=== PATIENT | male | born 1990 | race Caucasian/White ===

== ENCOUNTER 2016-09-03 16:01 | Emergency (ER) | payer OTHER ==
[2016-09-03 16:20] VITALS: TEMP 98.5
[2016-09-03 16:29] LABS: Glucose,Whole Blood 386 mg/dL (75-99)
[2016-09-03] MEDS ORDERED: SODIUM CHLORIDE 0.9% 2,000 ML IV ONE (16:29)
[2016-09-03] MEDS ORDERED: ONDANSETRON 4 MG/2 ML VIAL IVP STA (16:32)
--- NOTE | 2016-09-03 16:33 | ED ---
General Adult HPI - General Chief complaint: Recheck/Abnormal Lab/Rx Stated complaint: Diabetic/Vomitting Time Seen by Provider: 09/03/16 16:24 Source: patient, RN notes reviewed Mode of arrival: ambulatory Limitations: no limitations - History of Present Illness Initial comments: 26-year-old male presents emergency Department chief complaint of cold like symptoms, and nausea vomiting only blood sugar. Patient states that she has some sinus congestion cold like symptoms for lasted 4 days states today he developed nausea vomiting. Patient states his blood sugars have been up and down and have been over 500. Patient is concerned about possible DKA. Patient states he's been admitted to the hospital multiple times in the past. Patient states he is on injections he does not use an insulin pump. Patient states he does have some continuation nausea but denies any diarrhea or constipation. Denies any sick contacts. Patient has NO KNOWN DRUG ALLERGIES. 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 - Related Data Home Medications Medication Instructions Recorded Confirmed Insulin Aspart [NovoLOG] See Protocol SQ TID-W/MEALS 10/30/15 09/03/16 Previous Rx's Medication Instructions Recorded Insulin Glargine [Lantus] 24 units SQ HS #1 vial 11/01/15 Ondansetron Odt [Zofran Odt] 4 mg PO Q8HR PRN #10 tab 09/03/16 Allergies Allergy/AdvReac Type Severity Reaction Status Date / Time No Known Allergies Allergy Verified 09/03/16 16:36 Review of Systems ROS Statement: Those systems with pertinent positive or pertinent negative responses have been documented in the HPI. ROS Other: All systems not noted in ROS Statement are negative. Past Medical History Past Medical History: Asthma, Chest Pain / Angina, Diabetes Mellitus, GERD/ Reflux Additional Past Medical History / Comment(s): Other HX: IDDM type I History of Any Multi-Drug Resistant Organisms: None Reported Past Surgical History: Cholecystectomy Past Anesthesia/Blood Transfusion Reactions: Postoperative Nausea & Vomiting ( PONV) Additional Past Anesthesia/Blood Transfusion Reaction / Comment(s): Pt has never received blood. Past Psychological History: Anxiety, Depression Additional Psychological History / Comment(s): Pt has had difficulties with anxiety and depression in the past but not at this time. He is independent. He drives. Smoking Status: Current some day smoker Past Alcohol Use History: Occasional Additional Past Alcohol Use History / Comment(s): Pt states he started smoking in 2009 and quit in 2013. Past Drug Use History: Marijuana Additional Drug Use History / Comment(s): OCCASIONAL-maybe once a month. - Past Family History Father Family Medical History: Diabetes Mellitus, Hypertension Additional Family Medical History / Comment(s): type II diabetes. Mother Family Medical History: COPD Brother(s) Family Medical History: Diabetes Mellitus Additional Family Medical History / Comment(s): IDDM type I Sister(s) Family Medical History: No Reported History General Exam Limitations: no limitations General appearance: alert, in no apparent distress Head exam: Present: atraumatic, normocephalic, normal inspection Eye exam: Present: normal appearance, PERRL, EOMI. Absent: scleral icterus, conjunctival injection, periorbital swelling ENT exam: Present: normal exam, normal oropharynx, mucous membranes moist, TM's normal bilaterally, normal external ear exam Neck exam: Present: normal inspection, full ROM. Absent: tenderness, meningismus, lymphadenopathy Respiratory exam: Present: normal lung sounds bilaterally. Absent: respiratory distress, wheezes, rales, rhonchi, stridor Cardiovascular Exam: Present: normal rhythm, tachycardia, normal heart sounds. Absent: systolic murmur, diastolic murmur, rubs, gallop, clicks GI/Abdominal exam: Present: soft, normal bowel sounds. Absent: distended, tenderness, guarding, rebound, rigid Back exam: Absent: CVA tenderness (R), CVA tenderness (L) Neurological exam: Present: alert, oriented X3, CN II-XII intact Skin exam: Present: warm, dry, intact, normal color. Absent: rash Course Vital Signs 09/03/16 09/03/16 16:17 18:11 Temperature 98.5 F Pulse Rate 110 H 111 H Respiratory 20 18 Rate Blood Pressure 142/86 105/52 O2 Sat by Pulse 98 97 Oximetry Medical Decision Making - Medical Decision Making 26-year-old male presented for hyperglycemia nausea vomiting. Patient states that he feels 100% better at this time. Patient was explained that he still has some positive blood sugar 287. Patient is requesting discharge at this time. Explained that he possibly needs more fluids, insulin that he states that he is able to go home. Patient states she does have follow-up with primary care physician he does not seem fence manufacture supervisor. Return parameters discussed. Patient's bicarb was within normal limits here in emergency department. - Lab Data Result diagrams: 09/03/16 16:51 09/03/16 16:51 Lab Results 09/03/16 09/03/16 09/03/16 Range/Units 16:26 16:51 16:51 WBC 8.6 (3.8-10.6) k/uL RBC 5.47 (4.30-5.90) m/uL Hgb 16.5 (13.0-17.5) gm/dL Hct 47.9 (39.0-53.0) % MCV 87.6 (80.0-100.0) fL MCH 30.2 (25.0-35.0) pg MCHC 34.5 (31.0-37.0) g/dL RDW 12.6 (11.5-15.5) % Plt Count 213 (150-450) k/uL Neutrophils % 89 % Lymphocytes % 4 % Monocytes % 5 % Eosinophils % 1 % Basophils % 1 % Neutrophils # 7.7 (1.3-7.7) k/uL Lymphocytes # 0.3 L (1.0-4.8) k/uL Monocytes # 0.4 (0-1.0) k/uL Eosinophils # 0.1 (0-0.7) k/uL Basophils # 0.1 (0-0.2) k/uL Sodium 133 L (137-145) mmol/L Potassium 5.1 (3.5-5.1) mmol/L Chloride 92 L (98-107) mmol/L Carbon Dioxide 23 (22-30) mmol/L Anion Gap 18 mmol/L BUN 13 (9-20) mg/dL Creatinine 0.78 (0.66-1.25) mg/dL Est GFR (MDRD) Af Amer >60 (>60 ml/min/1.73 sqM) Est GFR (MDRD) Non-Af >60 (>60 ml/min/1.73 sqM) Glucose 414 H (74-99) mg/dL POC Glucose (mg/dL) 386 H (75-99) mg/dL POC Glu Customs Brokerage Manager ID Gladys Langston Calcium 9.7 (8.4-10.2) mg/dL Total Bilirubin 1.2 (0.2-1.3) mg/dL AST 19 (17-59) U/L ALT 35 (21-72) U/L Alkaline Phosphatase 152 H (38-126) U/L Total Protein 7.3 (6.3-8.2) g/dL Albumin 4.7 (3.5-5.0) g/dL Amylase <30 L (30-110) U/L Lipase 19 L (23-300) U/L Urine Color Urine Appearance (Clear) Urine pH (5.0-8.0) Ur Specific [place] (1.001-1.035) Urine Protein (Negative) Urine Glucose (UA) (Negative) Urine Ketones (Negative) Urine Blood (Negative) Urine Nitrate (Negative) Urine Bilirubin (Negative) Urine Urobilinogen (<2.0) mg/dL Ur Leukocyte Esterase (Negative) Acetone, Qual Positive (Negative) 09/03/16 09/03/16 09/03/16 Range/Units 17:53 18:03 19:14 WBC (3.8-10.6) k/uL RBC (4.30-5.90) m/uL Hgb (13.0-17.5) gm/dL Hct (39.0-53.0) % MCV (80.0-100.0) fL MCH (25.0-35.0) pg MCHC (31.0-37.0) g/dL RDW (11.5-15.5) % Plt Count (150-450) k/uL Neutrophils % % Lymphocytes % % Monocytes % % Eosinophils % % Basophils % % Neutrophils # (1.3-7.7) k/uL Lymphocytes # (1.0-4.8) k/uL Monocytes # (0-1.0) k/uL Eosinophils # (0-0.7) k/uL Basophils # (0-0.2) k/uL Sodium (137-145) mmol/L Potassium (3.5-5.1) mmol/L Chloride (98-107) mmol/L Carbon Dioxide (22-30) mmol/L Anion Gap mmol/L BUN (9-20) mg/dL Creatinine (0.66-1.25) mg/dL Est GFR (MDRD) Af Amer (>60 ml/min/1.73 sqM) Est GFR (MDRD) Non-Af (>60 ml/min/1.73 sqM) Glucose (74-99) mg/dL POC Glucose (mg/dL) 404 H 343 H (75-99) mg/dL POC Glu Customs Brokerage Manager ID Thuy Taylor Stacy Calcium (8.4-10.2) mg/dL Total Bilirubin (0.2-1.3) mg/dL AST (17-59) U/L ALT (21-72) U/L Alkaline Phosphatase (38-126) U/L Total Protein (6.3-8.2) g/dL Albumin (3.5-5.0) g/dL Amylase (30-110) U/L Lipase (23-300) U/L Urine Color Light Yellow Urine Appearance Clear (Clear) Urine pH 5.5 (5.0-8.0) Ur Specific [place] 1.029 (1.001-1.035) Urine Protein Negative (Negative) Urine Glucose (UA) 4+ H (Negative) Urine Ketones 4+ H (Negative) Urine Blood Negative (Negative) Urine Nitrate Negative (Negative) Urine Bilirubin Negative (Negative) Urine Urobilinogen <2.0 (<2.0) mg/dL Ur Leukocyte Esterase Negative (Negative) Acetone, Qual (Negative) 09/03/16 09/03/16 Range/Units 19:45 20:38 WBC (3.8-10.6) k/uL RBC (4.30-5.90) m/uL Hgb (13.0-17.5) gm/dL Hct (39.0-53.0) % MCV (80.0-100.0) fL MCH (25.0-35.0) pg MCHC (31.0-37.0) g/dL RDW (11.5-15.5) % Plt Count (150-450) k/uL Neutrophils % % Lymphocytes % % Monocytes % % Eosinophils % % Basophils % % Neutrophils # (1.3-7.7) k/uL Lymphocytes # (1.0-4.8) k/uL Monocytes # (0-1.0) k/uL Eosinophils # (0-0.7) k/uL Basophils # (0-0.2) k/uL Sodium (137-145) mmol/L Potassium (3.5-5.1) mmol/L Chloride (98-107) mmol/L Carbon Dioxide (22-30) mmol/L Anion Gap mmol/L BUN (9-20) mg/dL Creatinine (0.66-1.25) mg/dL Est GFR (MDRD) Af Amer (>60 ml/min/1.73 sqM) Est GFR (MDRD) Non-Af (>60 ml/min/1.73 sqM) Glucose (74-99) mg/dL POC Glucose (mg/dL) 287 H (75-99) mg/dL POC Glu Customs Brokerage Manager ID Kinza Caballero Calcium (8.4-10.2) mg/dL Total Bilirubin (0.2-1.3) mg/dL AST (17-59) U/L ALT (21-72) U/L Alkaline Phosphatase (38-126) U/L Total Protein (6.3-8.2) g/dL Albumin (3.5-5.0) g/dL Amylase (30-110) U/L Lipase (23-300) U/L Urine Color Urine Appearance (Clear) Urine pH (5.0-8.0) Ur Specific [place] (1.001-1.035) Urine Protein (Negative) Urine Glucose (UA) (Negative) Urine Ketones (Negative) Urine Blood (Negative) Urine Nitrate (Negative) Urine Bilirubin (Negative) Urine Urobilinogen (<2.0) mg/dL Ur Leukocyte Esterase (Negative) Acetone, Qual Positive (Negative) Disposition Clinical Impression: Hyperglycemia due to type 1 diabetes mellitus, Nausea & vomiting Disposition: HOME SELF-CARE Condition: Stable Instructions: Diabetic Hyperglycemia (ED) Additional Instructions: Please return to the Emergency Department if symptoms worsen or any other concerns. Prescriptions: Ondansetron Odt [Zofran Odt] 4 mg PO Q8HR PRN #10 tab PRN Reason: Nausea Time of Disposition: 21:04
[2016-09-03 17:20] LABS: Basophils # (A) 0.1 k/uL (0-0.2); Basophils % (A) 1 %; CH 31.3; CHCM 35.9; Eosinophils # (A) 0.1 k/uL (0-0.7); Eosinophils % (A) 1 %; HCT 47.9 % (39.0-53.0); HDW 3.21; HGB 16.5 gm/dL (13.0-17.5); Luc # (Auto) 0.09; Luc % (Auto) 1; Lymphocytes # (A) 0.3 k/uL (1.0-4.8); Lymphocytes % (A) 4 %; MCH 30.2 pg (25.0-35.0); MCHC 34.5 g/dL (31.0-37.0); MCV 87.6 fL (80.0-100.0); Mean Platelet Volume 6.9; Monocytes # (A) 0.4 k/uL (0-1.0); Monocytes % (A) 5 %; Neutrophils # (A) 7.7 k/uL (1.3-7.7); Neutrophils % (A) 89 %; RBC 5.47 m/uL (4.30-5.90); RDW 12.6 % (11.5-15.5); WBC 8.6 k/uL (3.8-10.6); WBC (Perox) 8.76
[2016-09-03 17:36] LABS: ALT 35 U/L (21-72); AST 19 U/L (17-59); Alkaline Phosphatase 152 U/L (38-126); Amylase <30 U/L (30-110); Anion Gap 18 mmol/L; Blood Urea Nitrogen 13 mg/dL (9-20); Calcium 9.7 mg/dL (8.4-10.2); Carbon Dioxide 23 mmol/L (22-30); Chloride 92 mmol/L (98-107); Glucose 414 mg/dL (74-99); Non-African American GFR(MDRD) >60 (>60 ml/min/1.73 sqM); Potassium 5.1 mmol/L (3.5-5.1); Sodium 133 mmol/L (137-145); Total Bilirubin 1.2 mg/dL (0.2-1.3); Total Protein 7.3 g/dL (6.3-8.2)
--- NOTE | 2016-09-03 17:41 | XR ---
EXAMINATION TYPE: XR chest 2V DATE OF EXAM: 09/03/2016 5:32 PM COMPARISON: 10/30/2015 HISTORY: Vomiting TECHNIQUE: Frontal and lateral views of the chest are obtained. FINDINGS: Heart and mediastinum are normal. Lungs are clear. Diaphragm is normal. Bony thorax is int act. Pulmonary vascularity is normal. IMPRESSION: Normal chest
[2016-09-03 17:54] LABS: Glucose,Whole Blood 404 mg/dL (75-99)
[2016-09-03] MEDS ORDERED: INSULIN REGULAR 100 UNIT/ML VIAL IV ONE ×2 (18:12→19:17)
[2016-09-03] MEDS ORDERED: KETOROLAC 30 MG/ML 1 ML VIAL IVP STA (18:18)
[2016-09-03 18:19] LABS: Appearance,Urine Clear (Clear); Bilirubin,Urine Negative (Negative); Glucose,Urine (UA) 4+ (Negative); Leukocyte Esterase,Urine Negative (Negative); Nitrite,Urine Negative (Negative); PH, Urine 5.5 (5.0-8.0); Protein,Urine Negative (Negative); Specific Gravity,Urine 1.029 (1.001-1.035); UA Billing (MACRO vs. MICRO) CHEM; Urobilinogen,Urine <2.0 mg/dL (<2.0)
[2016-09-03 18:30] LABS: Ketones,Urine 4+ (Negative)
[2016-09-03 19:16] LABS: Glucose,Whole Blood 343 mg/dL (75-99)
[2016-09-03] MEDS ORDERED: SODIUM CHLORIDE 0.9% 1,000 ML IV STA (19:17)
[2016-09-03 20:39] LABS: Glucose,Whole Blood 287 mg/dL (75-99)
[2016-09-03 21:18] VITALS: BP 133/73; PULSE 110; RESP 16
== END 2016-09-03 21:18 | disposition home or self-care (01) ==
LOC: EC 16:01
DX: E10.65 Type 1 diabetes mellitus with hyperglycemia (principal); Z79.4 Long term (current) use of insulin; R11.2 Nausea with vomiting, unspecified; F17.200 Nicotine dependence, unspecified, uncomplicated
CPT/HCPCS: 36415; 80053; 82150; 82009; 83690; 85025; 81003; 71020; 99285; 96374; 96375 ×3; 96361 ×3; J2405; J1885

== ENCOUNTER 2016-09-03 22:34 | Inpatient (IN) | payer OTHER ==
[2016-09-03] MEDS ORDERED: SODIUM CHLORIDE 0.9% 2,000 ML IV ONE (22:54)
[2016-09-03] MEDS ORDERED: METOCLOPRAMIDE 5 MG/ML 2 ML VIAL IVP STA (22:59)
[2016-09-03] MEDS ORDERED: ACETAMINOPHEN TAB 325 MG TAB PO STA (22:59)
[2016-09-03] MEDS ORDERED: MAG HYDROX/AL HYDROX/SIMETH 30 ML, HYOSCYAMINE ELIXIR 10 ML, CIMETIDINE HCL 300 MG, LID... PO STA ×4 (23:19)
[2016-09-03 23:22] LABS: Basophils # (A) 0.1 k/uL (0-0.2); Basophils % (A) 1 %; CH 31.2; CHCM 34.9; Eosinophils % (A) 0 %; HCT 44.3 % (39.0-53.0); HDW 3.19; HGB 15.2 gm/dL (13.0-17.5); Luc # (Auto) 0.14; Luc % (Auto) 1; Lymphocytes # (A) 0.7 k/uL (1.0-4.8); Lymphocytes % (A) 7 %; MCH 30.8 pg (25.0-35.0); MCHC 34.3 g/dL (31.0-37.0); MCV 89.9 fL (80.0-100.0); Mean Platelet Volume 7.9; Monocytes # (A) 0.6 k/uL (0-1.0); Monocytes % (A) 6 %; Neutrophils % (A) 84 %; RBC 4.92 m/uL (4.30-5.90); RDW 12.6 % (11.5-15.5); WBC 9.6 k/uL (3.8-10.6); WBC (Perox) 9.31
[2016-09-03 23:33] LABS: Anion Gap 21 mmol/L; Blood Urea Nitrogen 15 mg/dL (9-20); Calcium 9.3 mg/dL (8.4-10.2); Carbon Dioxide 16 mmol/L (22-30); Chloride 97 mmol/L (98-107); Non-African American GFR(MDRD) >60 (>60 ml/min/1.73 sqM); Sodium 134 mmol/L (137-145)
--- NOTE | 2016-09-03 23:36 | XR ---
EXAMINATION TYPE: XR chest 2V DATE OF EXAM: 09/03/2016 11:30 PM COMPARISON: 09/03/2016 today HISTORY: Fever TECHNIQUE: Frontal and lateral views of the chest are obtained. FINDINGS: Heart and mediastinum are normal. Lungs are clear. Diaphragm is normal. There are chest le ads. Bony thorax appears normal. IMPRESSION: Normal chest. No change compared to exam earlier today.
[2016-09-03 23:37] LABS: Glucose 495 mg/dL (74-99)
[2016-09-04] MEDS ORDERED: INSULIN REGULAR 100 UNIT/ML VIAL IV STA (00:45)
[2016-09-04 00:46] LABS: Amylase 38 U/L (30-110)
[2016-09-04] MEDS ORDERED: HYDROcodone/APAP 5-325MG 1 EACH TAB PO STA (00:48)
[2016-09-04] MEDS ORDERED: INSULIN REGULAR 100 UNIT in SODIUM CHLORIDE 0.9% 100 ML IV SCH (01:00)
[2016-09-04] MEDS ORDERED: METOCLOPRAMIDE 5 MG/ML 2 ML VIAL IVP PRN (01:48)
[2016-09-04] MEDS: SODIUM CHLORIDE 0.9% 1,000 ML IV SCH ×5 (02:03→12:54)
[2016-09-04 03:31] LABS: Glucose,Whole Blood 402 mg/dL (75-99)
--- NOTE | 2016-09-04 03:39 | ED ---
Chest Pain HPI - General Chief Complaint: Chest Pain Stated Complaint: Chest Pain, XIAO Time Seen by Provider: 09/03/16 22:53 Source: patient Mode of arrival: wheelchair Limitations: no limitations - History of Present Illness Initial Comments: This patient is 26-year-old diabetic patient who was seen earlier in the emergency department for concern that he may have had DKA. He was having nausea and vomiting. The patient states that he had IV fluid, insulin, and was feeling much better and went home. After the patient was home he had an episode of vomiting and then had severe substernal chest pain. Patient has been having episodes of this intermittently since he had his gallbladder removed. They have raised concerns with his physician about esophagitis but he has never had endoscopy. MD Complaint: chest pain -: minutes(s) Onset: other (Associated with nausea and vomiting) Pain Location: substernal Severity: severe Quality: sharp, other (Burning) Consistency: constant Improves With: nothing Worsens With: nothing Anginal Symptoms: nausea, vomiting Treatments Prior to Arrival: none - Related Data Home Medications Medication Instructions Recorded Confirmed Insulin Aspart [NovoLOG] See Protocol SQ TID-W/MEALS 10/30/15 09/03/16 Previous Rx's Medication Instructions Recorded Insulin Glargine [Lantus] 24 units SQ HS #1 vial 11/01/15 Ondansetron Odt [Zofran Odt] 4 mg PO Q8HR PRN #10 tab 09/03/16 Allergies Allergy/AdvReac Type Severity Reaction Status Date / Time No Known Allergies Allergy Verified 09/03/16 22:49 Review of Systems ROS Statement: Those systems with pertinent positive or pertinent negative responses have been documented in the HPI. ROS Other: All systems not noted in ROS Statement are negative. Constitutional: Denies: fever, chills Respiratory: Denies: cough, dyspnea Cardiovascular: Reports: chest pain, palpitations. Denies: syncope Gastrointestinal: Reports: abdominal pain, nausea, vomiting. Denies: diarrhea, hematemesis, melena, hematochezia Genitourinary: Denies: dysuria, hematuria Musculoskeletal: Denies: back pain Skin: Denies: rash EKG Findings - EKG Results: EKG: interpreted by ERMD, sinus rhythm, normal ST/T EKG shows: tachycardia (Rate approximately 119 bpm) - Blocks, [place], Hypertrophy, ST Abn: AV and intraventricular conduction: right bundle branch block (fixed/ intermittent, complete/incomplete) (Incomplete) QRS axis and voltage: right axis deviation (+90 to +180) Past Medical History Past Medical History: Asthma, Chest Pain / Angina, Diabetes Mellitus, GERD/ Reflux Additional Past Medical History / Comment(s): Other HX: IDDM type I History of Any Multi-Drug Resistant Organisms: None Reported Past Surgical History: Cholecystectomy Past Anesthesia/Blood Transfusion Reactions: Postoperative Nausea & Vomiting ( PONV) Additional Past Anesthesia/Blood Transfusion Reaction / Comment(s): Pt has never received blood. Past Psychological History: Anxiety, Depression Additional Psychological History / Comment(s): Pt has had difficulties with anxiety and depression in the past but not at this time. He is independent. He drives. Smoking Status: Current some day smoker Past Alcohol Use History: Occasional Additional Past Alcohol Use History / Comment(s): Pt states he started smoking in 2009 and quit in 2013. Past Drug Use History: Marijuana Additional Drug Use History / Comment(s): OCCASIONAL-maybe once a month. - Past Family History Father Family Medical History: Diabetes Mellitus, Hypertension Additional Family Medical History / Comment(s): type II diabetes. Mother Family Medical History: COPD Brother(s) Family Medical History: Diabetes Mellitus Additional Family Medical History / Comment(s): IDDM type I Sister(s) Family Medical History: No Reported History General Exam Limitations: no limitations General appearance: alert, in no apparent distress Head exam: Present: atraumatic, normocephalic Eye exam: Present: normal appearance. Absent: scleral icterus, conjunctival injection ENT exam: Present: mucous membranes dry Neck exam: Present: normal inspection Respiratory exam: Present: normal lung sounds bilaterally. Absent: respiratory distress, wheezes, rales, rhonchi, stridor, chest wall tenderness Cardiovascular Exam: Present: normal rhythm, tachycardia, normal heart sounds. Absent: systolic murmur, diastolic murmur, rubs, gallop GI/Abdominal exam: Present: soft. Absent: distended, tenderness, guarding, rebound, rigid, mass, bruit Extremities exam: Present: normal inspection, normal capillary refill. Absent: pedal edema, calf tenderness Back exam: Absent: CVA tenderness (R), CVA tenderness (L) Neurological exam: Present: alert Skin exam: Present: warm, dry, intact, normal color. Absent: rash Course Vital Signs 09/03/16 09/03/16 09/03/16 22:37 23:12 23:49 Temperature 98.0 F Pulse Rate 124 H Pulse Rate [ 123 H Service Center Specialist ] Respiratory 28 H 20 Rate Blood Pressure 171/99 Blood Pressure [Left Arm] O2 Sat by Pulse 100 Oximetry 09/04/16 09/04/16 09/04/16 00:33 02:11 03:13 Temperature Pulse Rate 127 H 118 H 117 H Pulse Rate [ Service [employer] Specialist ] Respiratory 20 18 18 Rate Blood Pressure 124/58 86/39 103/53 Blood Pressure [Left Arm] O2 Sat by Pulse 100 97 96 Oximetry 09/04/16 09/04/16 09/04/16 03:59 04:18 04:49 Temperature 99 F 99 F Pulse Rate 116 H 117 H Pulse Rate [ 108 H [facility] Center Specialist ] Respiratory 18 22 20 Rate Blood Pressure 112/55 107/51 Blood Pressure 107/51 [Left Arm] O2 Sat by Pulse 97 99 99 Oximetry Chest Pain MDM - MDM This patient is 26-year-old man who returns emergency department and is in mild DKA. The chest pain is consistent with esophagitis type pain, it did come on after vomiting. Similar to previous episodes of same. The symptoms did improve following the GI cocktail. Patient admitted for further fluids and insulin. Case discussed with both the admitting physician and with Dr. Johansen. Critical Care Time Critical Care Time: Yes (35 minutes) Disposition Clinical Impression: Chest pain, Diabetic ketoacidosis, type I Disposition: ADMITTED IP TO THIS HOSP Condition: Fair
[2016-09-04 04:19] LABS: Anion Gap 18 mmol/L; Blood Urea Nitrogen 16 mg/dL (9-20); Carbon Dioxide 14 mmol/L (22-30); Chloride 104 mmol/L (98-107); Glucose 353 mg/dL (74-99); Non-African American GFR(MDRD) >60 (>60 ml/min/1.73 sqM); Phosphorous 2.5 mg/dL (2.5-4.5); Potassium 4.5 mmol/L (3.5-5.1); Sodium 136 mmol/L (137-145)
[2016-09-04 04:40] LABS: Glucose,Whole Blood 331 mg/dL (75-99)
[2016-09-04 05:18] VITALS: BMI 24.6
[2016-09-04 05:55] LABS: Glucose,Whole Blood 244 mg/dL (75-99)
[2016-09-04 06:29] LABS: Glucose,Whole Blood 212 mg/dL (75-99)
[2016-09-04] MEDS ORDERED: DEXTROSE 5%-0.45% NACL 1,000 ML with POTASSIUM CHLORIDE 20 MEQ IV SCH ×2 (07:15)
[2016-09-04] MEDS ORDERED: D5-0.45% NACL WITH KCL 20MEQ/L 1,000 ML IV SCH (07:30)
[2016-09-04 07:54] LABS: Glucose,Whole Blood 114 mg/dL (75-99)
[2016-09-04 09:01] LABS: Anion Gap 11 mmol/L; Blood Urea Nitrogen 12 mg/dL (9-20); Carbon Dioxide 22 mmol/L (22-30); Chloride 106 mmol/L (98-107); Glucose 115 mg/dL (74-99); Non-African American GFR(MDRD) >60 (>60 ml/min/1.73 sqM); Phosphorous 2.8 mg/dL (2.5-4.5); Sodium 139 mmol/L (137-145)
[2016-09-04 09:15] LABS: Potassium 4.1 mmol/L (3.5-5.1)
[2016-09-04 09:19] LABS: Glucose,Whole Blood 151 mg/dL (75-99)
[2016-09-04 10:17] LABS: Glucose,Whole Blood 160 mg/dL (75-99)
--- NOTE | 2016-09-04 10:36 | P.CNPUL ---
History of Present Illness Consult date: 09/04/16 Reason for consult: chest pain Chief complaint: Nausea, vomiting, chest pain History of present illness: This is a 26-year-old male who presented to emergency Department complaining of nausea, vomiting, and chest pain. The patient states he was feeling unwell for several days. He has known diabetes mellitus type 1 and thought he was going into DKA. He was originally seen in the ER and given IV fluids and insulin he felt better and went home. The patient presented back in the ER a few hours later. He had the same complaints. The patient was found to be hyponatremic, hyperkalemic, anion gap metabolic acidosis. His blood sugars were in the 300- 400 range. The patient is seen and examined in the ICU. He states he is feeling much better. He no longer has chest pain, nausea, vomiting. Review of Systems All systems: negative Past Medical History Past Medical History: Asthma, Diabetes Mellitus, GERD/Reflux Additional Past Medical History / Comment(s): Other HX: IDDM type I History of Any Multi-Drug Resistant Organisms: None Reported Past Surgical History: Cholecystectomy Past Anesthesia/Blood Transfusion Reactions: Postoperative Nausea & Vomiting ( PONV) Additional Past Anesthesia/Blood Transfusion Reaction / Comment(s): Pt has never received blood. Past Psychological History: Anxiety, Depression Additional Psychological History / Comment(s): Pt has had difficulties with anxiety and depression in the past but not at this time. He is independent. He drives. Smoking Status: Current some day smoker Past Alcohol Use History: Occasional Additional Past Alcohol Use History / Comment(s): Pt states he started smoking in 2009 and quit in 2013. Past Drug Use History: Marijuana Additional Drug Use History / Comment(s): OCCASIONAL-maybe once a month. - Past Family History Father Family Medical History: Diabetes Mellitus, Hypertension Additional Family Medical History / Comment(s): type II diabetes. Mother Family Medical History: COPD Brother(s) Family Medical History: Diabetes Mellitus Additional Family Medical History / Comment(s): IDDM type I Sister(s) Family Medical History: No Reported History Medications and Allergies Home Medications Medication Instructions Recorded Confirmed Type Insulin Aspart [NovoLOG] See Protocol SQ TID-W/MEALS 10/30/15 09/03/16 History Allergies Allergy/AdvReac Type Severity Reaction Status Date / Time No Known Allergies Allergy Verified 09/03/16 22:49 Physical Exam Osteopathic Statement: *. No significant issues noted on an osteopathic structural exam other than those noted in the History and Physical/Consult. Vitals: Vital Signs Temp Pulse Pulse Resp BP BP Pulse Ox 09/04/16 08:00 98.6 F 117 H 28 H 100/56 96 09/04/16 05:45 22 09/04/16 04:49 99 F 117 H 20 107/51 99 09/04/16 04:18 99 F 108 H 22 107/51 99 09/04/16 03:59 116 H 18 112/55 97 09/04/16 03:13 117 H 18 103/53 96 09/04/16 02:11 118 H 18 86/39 97 Intake and Output 09/03/16 09/04/16 09/04/16 22:59 06:59 14:59 Intake Total 2919.124 Balance 2919.124 Intake: IV 400 Sodium Chloride 0.9% 1, 400 000 ml @ 200 mls/hr IV . Q5H [facility] Rx#:[id number] Amount of Fluid Infused ( 2500 ml) Intake, IV Titration 19.124 Amount Insulin Regular 100 unit 19.124 In Sodium Chloride 0.9% 100 ml @ 0.1 UNITS/KG/HR 6.87 mls/hr IV .[id number] [facility] Rx#:[id number] Other: Voiding Method Urinal Weight 69.2 kg 69.2 kg Patient Weight 09/05/16 06:59 Weight 69.2 kg Gen.: Patient is alert and oriented 3, no acute distress Cardiovascular: Regular rate and rhythm, S1/S2 Lungs: Clear to auscultation bilaterally no wheezes rales or rhonchi Abdomen: Soft nontender nondistended positive bowel sounds Extremities: No edema Results - Laboratory Findings CBC and BMP: 09/03/16 23:15 09/04/16 08:18 Abnormal lab findings: Abnormal Labs 09/04/16 09/04/16 09/04/16 03:30 03:57 04:36 Sodium 136 L Carbon Dioxide 14 L Glucose 353 H POC Glucose (mg/dL) 402 H 331 H 09/04/16 09/04/16 09/04/16 05:34 06:26 07:52 Sodium Carbon Dioxide Glucose POC Glucose (mg/dL) 244 H 212 H 114 H 02/09/04/16 09/04/16 08:18 09:08 10:16 Sodium Carbon Dioxide Glucose 115 H POC Glucose (mg/dL) 151 H 160 H - Diagnostic Findings Chest x-ray: report reviewed, image reviewed Assessment and Plan Plan: Acute DKA Diabetes mellitus Type 1 Anion gap metabolic acidosis Hyponatremia, dehydration Hyperkalemia, resolved Intractable nausea, vomiting Atypical Chest pain, now resolved Possible esophagitis Hx cholecystectomy Hx asthma, not acutely exacerbated, unknown type Active tobacco abuse Continue insulin drip Continue IVF Monitor BS Diabetic diet CXR - NAP Monitor electrolytes Q6 hours Antiemetics Pain control Incentive spirometry and pulmnary hygiene GI and DVT prophylaxis: Hep, Protonix
[2016-09-04 11:01] LABS: Glucose,Whole Blood 139 mg/dL (75-99)
[2016-09-04] MEDS: PANTOPRAZOLE 40 MG/10 ML VIAL IVP SCH (11:56)
[2016-09-04 12:14] LABS: Glucose,Whole Blood 134 mg/dL (75-99)
[2016-09-04 12:54] LABS: Anion Gap 9 mmol/L; Blood Urea Nitrogen 11 mg/dL (9-20); Carbon Dioxide 23 mmol/L (22-30); Chloride 105 mmol/L (98-107); Non-African American GFR(MDRD) >60 (>60 ml/min/1.73 sqM); Sodium 137 mmol/L (137-145)
[2016-09-04 12:59] LABS: Glucose,Whole Blood 103 mg/dL (75-99)
[2016-09-04] MEDS ORDERED: INSULIN NPH 300 UNIT/3 ML VIAL SQ ONE (13:41)
--- NOTE | 2016-09-04 13:56 | P.HPIM ---
History of Present Illness H&P Date: 09/04/16 This is 26-year-old patient of Dr. Miller,. He has an underlying history of juvenile diabetes type 1, asthma, gastroesophageal reflux disease. Patient initially presented to [facility] emergency center on the afternoon of September 03 with complaints of cold-like symptoms, nausea, vomiting , sinus congestion for 4 days. Blood sugars were running over 500 and was concerned about possible DKA. Blood sugar was 414 and acetone was positive. Patient was treated with IV fluids and was feeling much improved and wished to go home versus being admitted. He was provided with a prescription for Zofran and was discharged home. He returned with severe substernal chest pain. He states he also had a fever yesterday. He states since he had his gallbladder removed he does have a vomiting episode every day in the morning. Pain is in the low sternal area and he thinks it's related to his esophagus. His primary care physician has given a medications for without any improvement. He has never seen a gem technician. He was tachycardic at 124, blood sugar 495, acetone positive. He was started on insulin drip with the DKA protocol and admitted to the intensive care unit. Consult with Dr. Kenyon. Troponin was ordered and came back at 0.235. Cardiology consult has been requested. Patient is known to have noncompliance with his diabetic regime. He will need a glucometer for home. Review of Systems All systems: negative Constitutional: Denies chills, Denies fever Eyes: denies blurred vision, denies pain Ears, nose, mouth and throat: Denies headache, Denies sore throat Cardiovascular: Reports chest pain, Denies shortness of breath Respiratory: Denies cough Gastrointestinal: Reports nausea, Reports vomiting, Denies abdominal pain, Denies diarrhea Musculoskeletal: Denies myalgias Integumentary: Denies pruritus, Denies rash Neurological: Denies numbness, Denies weakness Psychiatric: Denies anxiety, Denies depression Endocrine: Denies fatigue, Denies weight change Past Medical History Past Medical History: Asthma, Diabetes Mellitus, GERD/Reflux Additional Past Medical History / Comment(s): Other HX: IDDM type I History of Any Multi-Drug Resistant Organisms: None Reported Past Surgical History: Cholecystectomy Past Anesthesia/Blood Transfusion Reactions: Postoperative Nausea & Vomiting ( PONV) Additional Past Anesthesia/Blood Transfusion Reaction / Comment(s): Pt has never received blood. Past Psychological History: Anxiety, Depression Additional Psychological History / Comment(s): Pt has had difficulties with anxiety and depression in the past but not at this time. He is independent. He drives. Smoking Status: Current some day smoker Past Alcohol Use History: Occasional Additional Past Alcohol Use History / Comment(s): Pt states he started smoking in 2009 and 10 used to smoke. Past Drug Use History: Marijuana Additional Drug Use History / Comment(s): OCCASIONAL-maybe once a month. - Past Family History Father Family Medical History: Diabetes Mellitus, Hypertension Additional Family Medical History / Comment(s): type II diabetes. Mother Family Medical History: COPD Brother(s) Family Medical History: Diabetes Mellitus Additional Family Medical History / Comment(s): IDDM type I Sister(s) Family Medical History: No Reported History Medications and Allergies Home Medications Medication Instructions Recorded Confirmed Type Insulin Aspart [NovoLOG] See Protocol SQ TID-W/MEALS 10/30/15 09/03/16 History Allergies Allergy/AdvReac Type Severity Reaction Status Date / Time No Known Allergies Allergy Verified 09/03/16 22:49 Physical Exam Vitals: Vital Signs Temp Pulse Pulse Resp BP BP Pulse Ox 09/04/16 08:00 98.6 F 117 H 28 H 100/56 96 09/04/16 05:45 22 09/04/16 04:49 99 F 117 H 20 107/51 99 09/04/16 04:18 99 F 108 H 22 107/51 99 09/04/16 03:59 116 H 18 112/55 97 09/04/16 03:13 117 H 18 103/53 96 09/04/16 02:11 118 H 18 86/39 97 Intake and Output 09/03/16 09/04/16 09/04/16 22:59 06:59 14:59 Intake Total 2919.124 Balance 2919.124 Intake: IV 400 Sodium Chloride 0.9% 1, 400 000 ml @ 200 mls/hr IV . Q5H OBED Rx#:[id number] Amount of Fluid Infused ( 2500 ml) Intake, IV Titration 19.124 Amount Insulin Regular 100 unit 19.124 In Sodium Chloride 0.9% 100 ml @ 0.1 UNITS/KG/HR 6.87 mls/hr IV .[id number] OBED Rx#:[id number] Other: Voiding Method Urinal Weight 69.2 kg General appearance: average body habitus, no acute distress - EENT Eyes: Reports anicteric sclerae, Reports EOMI, Reports PERRLA, Reports dentition normal, Reports normal apperance ENT: Reports hearing grossly normal, Reports NA/AT, Reports normal oropharynx Ears: bilateral: normal - Neck Neck: Reports normal ROM, Denies lymphadenopathy, Denies other, Denies rigidity , Denies stridor, Denies thyromegaly - Respiratory Respiratory: bilateral: CTA, negative: diminished, dullness, rales, wheezing, prolonged expiration, prolonged inspiration - Cardiovascular Rhythm: regular Heart sounds: normal: S1, S2 Abnormal Heart Sounds: Denies systolic murmur, Denies diastolic murmur, Denies rub, Denies S3 Gallop, Denies S4 Gallop, Denies click, Denies other - Gastrointestinal General gastrointestinal: Reports normal bowel sounds, Reports soft, Denies absent bowel sounds, Denies decreased bowel sounds, Denies distended, Denies hepatomegaly, Denies hyperactive bowel sounds, Denies organomegaly, Denies rigid , Denies scaphoid, Denies splenomegaly, Denies tenderness, Denies umbilical hernia, Denies ventral hernia - Integumentary Integumentary: Reports normal, Reports normal turgor - Neurologic Neurologic: CNII-XII intact - Musculoskeletal Musculoskeletal: Reports gait normal, Reports strength equal bilaterally - Psychiatric Psychiatric: Reports A&O x's 3, Reports appropriate affect, Reports intact judgment & insight Results CBC & Chem 7: 09/03/16 23:15 09/05/16 11:59 Labs: Abnormal Lab Results - Last 24 Hours (Table) 09/04/16 09/04/16 09/04/16 Range/Units 03:30 03:57 04:36 Sodium 136 L (137-145) mmol/L Carbon Dioxide 14 L (22-30) mmol/L Glucose 353 H (74-99) mg/dL POC Glucose (mg/dL) 402 H 331 H (75-99) mg/dL 09/04/16 09/04/16 09/04/16 Range/Units 05:34 06:26 07:52 Sodium (137-145) mmol/L Carbon Dioxide (22-30) mmol/L Glucose (74-99) mg/dL POC Glucose (mg/dL) 244 H 212 H 114 H (75-99) mg/dL 09/04/16 09/04/16 Range/Units 08:18 09:08 Sodium (137-145) mmol/L Carbon Dioxide (22-30) mmol/L Glucose 115 H (74-99) mg/dL POC Glucose (mg/dL) 151 H (75-99) mg/dL Thrombosis Risk Factor Assmnt - DVT/VTE Prophylaxis DVT/VTE Prophylaxis: Pharmacologic Prophylaxis ordered - Choose All That Apply Any of the Below Risk Factors Present?: No Other Risk Factors: No Thrombosis Risk Factor Assessment Level: Very Low Risk Assessment and Plan Plan: 1. Acute DKA secondary to diabetes mellitus type 1 2. Chest pain with possible esophagitis. Patient does have history of indigestion related to pizza intake on last admission and possible gastroparesis for which consult placed with GI. Patient also had elevated troponin. Cardiology consult requested, repeat EKG, troponins and echocardiogram ordered. 3. History of cholecystectomy secondary to biliary dyskinesia no history of stones liver function tests normal 4. Diabetes mellitus type 1. A shunt has been on insulin drip which now will be transitioned to scheduled insulin. Patient will need glucometer. 4. History of asthma stable and in active with no current medications. 5. Current tobacco use patient was counseled regarding a permanent smoking cessation program. 5. Intermittent marijuana use for which he uses for social reasons. GI prophylaxis and DVT prophylaxis provided Patient will be admitted to the hospital for a minimum of 2 night stay. Impression and plan of care have been directed as dictated by the signing physician. Madison Gu nurse practitioner acting as scribe for signing physician. Cc: Dr. Brett Miller Time with Patient: Greater than 30
[2016-09-04] MEDS: HEPARIN SODIUM,PORCINE 5,000 UNIT/ML 1 ML VIAL SQ SCH ×2 (16:25→23:30)
[2016-09-04] MEDS: ASPIRIN 81 MG CHEW PO SCH (16:25)
[2016-09-04] MEDS: ATORVASTATIN 20 MG TAB PO SCH (16:25)
[2016-09-04 17:13] LABS: Glucose,Whole Blood 285 mg/dL (75-99)
[2016-09-04] MEDS: INSULIN LISPRO (humaLOG) 300 UNIT/3 ML VIAL SQ SCH ×3 (17:54→20:29)
--- NOTE | 2016-09-04 18:20 | CONS ---
Mr. Puente is a 26-year-old male with a history of diabetes mellitus, started at the age of 19, history of admission in the past because of elevated blood sugar who had recently upper respiratory infection with fever and nausea, was treated as an outpatient, but came back again with symptoms of dyspnea and chest discomfort and vomiting. Apparently since he had his gallbladder surgery 2 years ago, he vomits and he has chest pain, but yesterday felt that his breathing was worse. Cardiology consultation was requested because of elevation of troponin. Patient has no prior documented history of cardiac disease. He is active physically, has no exertional chest pain or significant dyspnea. He has no or palpitation. No PND, orthopnea. No peripheral edema. There is a question of compliance with his blood sugar treatment in the past and followup. His coronary risk factors are remarkable for the history of diabetes. He smokes, but he has stopped about a year ago, although he still smokes at times. He has no documented hyperlipidemia. SOCIAL HISTORY: He smokes marijuana once or twice a month. Denies alcohol abuse. REVIEW OF SYSTEMS: RESPIRATORY: He does recent upper respiratory infection. No history of obstructive lung disease. GI: He had nausea and vomiting following his cholecystectomy. : No dysuria or hematuria. NERVOUS: No stroke or seizure. PHYSICAL EXAMINATION: He is a 26-year-old male; alert, oriented, in no apparent distress. Blood pressure 100/56 with a heart rate in the 90s. HEAD: Normocephalic. EYES: Sclerae anicteric. NECK: Good upstroke. No bruits. No jugular venous distention. LUNGS: Clear to auscultation. HEART: Regular rate rhythm. S1, S2. No S3. No S4. No murmur or rub. ABDOMEN: Soft, nontender, positive bowel sounds. No organomegaly. EXTREMITIES: No edema. Intact distal pulses. LAB DATA: On presentation, he was acetone positive with a blood sugar of 495. His potassium was 6.0. His bicarb was 21. This morning, his BUN and creatinine 11 and 0.77, potassium 4.2. His troponin 0.235. His EKG revealed a sinus mechanism, right axis, rate of 119 with incomplete right bundle branch block. A chest x-ray shows no acute changes. IMPRESSION: 1. Episode of chest discomfort, has some atypical features for ischemic heart disease. According to the patient, his symptoms are chronic, related to his nausea and vomiting with minimal elevation of troponin. The elevation of troponin could be related to the diabetic ketoacidosis and the recent viral infection. The possibility of obstructive coronary artery disease cannot be totally excluded because of the long-standing history of diabetes. 2. History of diabetic ketoacidosis, treated. 3. Prior history of smoking. 4. Chronic nausea and vomiting. Patient may have gastroparesis. RECOMMENDATIONS: From the cardiac standpoint, I will add to his regimen a low-dose SANGITA inhibitor in addition to statin and an aspirin. I will obtain echocardiogram with Doppler and depending on the progression of his enzymes as well as his EKG, further recommendation will be made. I have discussed those findings with the patient and his family and depending on his progress, further recommendation will be made. Thank you for this consult. We will follow with you.
[2016-09-04 20:25] LABS: Hemoglobin A1C 11.3 % (4.2-6.1)
[2016-09-04 20:34] LABS: Glucose,Whole Blood 227 mg/dL (75-99)
[2016-09-04] MEDS ORDERED: INSULIN GLARGINE 100 UNIT/ML 10 ML VIAL SQ SCH (21:00)
[2016-09-04] MEDS ORDERED: HEPARIN SODIUM,PORCINE 5,000 UNIT/ML 1 ML VIAL SQ SCH (21:00)
[2016-09-05 06:27] LABS: Anion Gap 17 mmol/L; Blood Urea Nitrogen 8 mg/dL (9-20); Calcium 8.6 mg/dL (8.4-10.2); Carbon Dioxide 21 mmol/L (22-30); Chloride 96 mmol/L (98-107); Glucose 276 mg/dL (74-99); Non-African American GFR(MDRD) >60 (>60 ml/min/1.73 sqM); Potassium 4.2 mmol/L (3.5-5.1); Sodium 134 mmol/L (137-145)
[2016-09-05] MEDS ORDERED: REGADENOSON 0.4 MG/5 ML SYRINGE IV ONE (07:40)
[2016-09-05] MEDS ORDERED: AMINOPHYLLINE 500 MG/20 ML VIAL IV PRN (07:40)
[2016-09-05 07:43] LABS: Glucose,Whole Blood 348 mg/dL (75-99)
[2016-09-05] MEDS ORDERED: INSULIN REGULAR BOLUS (FROM DRIP BAG) IV ONE (07:56)
[2016-09-05] MEDS: ASPIRIN 81 MG CHEW PO SCH (08:09)
[2016-09-05] MEDS: LISINOPRIL 2.5 MG TAB PO SCH (08:09)
[2016-09-05] MEDS: SODIUM CHLORIDE 0.9% 1,000 ML IV SCH ×2 (08:09→15:33)
[2016-09-05] MEDS: PANTOPRAZOLE 40 MG/10 ML VIAL IVP SCH (08:09)
[2016-09-05] MEDS: HEPARIN SODIUM,PORCINE 5,000 UNIT/ML 1 ML VIAL SQ SCH ×3 (08:10→23:33)
[2016-09-05] MEDS: INSULIN GLARGINE 100 UNIT/ML 10 ML VIAL SQ SCH ×2 (08:11→21:43)
[2016-09-05] MEDS: ATORVASTATIN 20 MG TAB PO SCH (08:11)
[2016-09-05] MEDS: INSULIN REGULAR 100 UNIT in SODIUM CHLORIDE 0.9% 100 ML IV SCH ×2 (08:15→22:39)
[2016-09-05 09:04] LABS: Glucose,Whole Blood 399 mg/dL (75-99)
--- NOTE | 2016-09-05 09:32 | PN ---
Mr. Puente is a 26-year-old male with a history of diabetes mellitus, who presented with diabetic ketoacidosis. Cardiology consultation was requested because of episode of chest discomfort. Patient has episode of chest discomfort that he relates to his nausea and vomiting that he had since he underwent cholecystectomy. He is feeling well this morning. He has no chest pain. Denies any dizziness, palpitation. Denies any change in his breathing. He felt mildly nauseated earlier but that is better now. Hemodynamically, he is stable. He was started yesterday on lisinopril 2.5 mg daily. He is on Lipitor 20 mg daily, aspirin once a day, in addition to insulin and Zofran. PHYSICAL EXAMINATION: Blood pressure 115/70 with a heart rate in the 90s. LUNGS: Clear. HEART: Regular rate and rhythm. S1 and S2, no S3, no rub. ABDOMEN: Soft, nontender. EXTREMITIES: No edema. Lab data revealed BUN and creatinine of 8 and 0.7. His calcium 8.6, troponin 0.140. His echocardiogram is pending. IMPRESSION: 1. Chest discomfort with mild elevation of troponin of unclear etiology. Could be related to his DKA. 2. History of diabetes mellitus with brittle control and prior to admission for diabetic ketoacidosis. 3. History of nausea and vomiting. Could be reflecting gastroparesis. 4. Prior history of smoking. RECOMMENDATIONS: From the cardiac standpoint, I will review the results of his echocardiogram. I will obtain a pharmacological myocardial perfusion imaging tomorrow to rule out any significant obstructive disease and if that is the case, then he may require coronary angiography. In the meantime, will continue the rest of his medical regimen and depending on his progress, further recommendation will be made.
[2016-09-05 10:03] LABS: Glucose,Whole Blood 218 mg/dL (75-99)
--- NOTE | 2016-09-05 10:12 | ECHOF ---
Referral Reason:LVF MEASUREMENTS -------- HEIGHT: 165.1 cm WEIGHT: 69.0 kg BP: 119/64 RVIDd: 2.4 cm (< 3.3) IVSd: 1.0 cm (0.6 - 1.1) LVIDd: 4.5 cm (3.9 - 5.3) LVPWd: 0.9 cm (0.6 - 1.1) IVSs: 1.4 cm LVIDs: 2.9 cm LVPWs: 1.2 cm LA Diam: 3.4 cm (2.7 - 3.8) Ao Diam: 2.7 cm (2.0 - 3.7) AV Cusp: 1.9 cm (1.5 - 2.6) LA Diam: 3.3 cm (2.7 - 3.8) MV E Xu: 0.97 m/s MV DecT: 232 ms MV A Xu: 0.72 m/s MV E/A Ratio: 1.35 RAP: 5.00 mmHg RVSP: 13.12 mmHg FINDINGS -------- Sinus rhythm. This was a technically excellent study. LV size, wall thickness and systolic function are normal, with an EF greater than 55%. The right ventricle is normal in size. The left atrial size is normal. The right atrial size is normal. The aortic valve is trileaflet, and appears structurally normal. No aortic stenosis or regurgitation. The mitral valve is normal. Mild tricuspid regurgitation present. There is no evidence of pulmonary hypertension. The right ventricular systolic pressure, as measured by Doppler, is 13.12mmHg. There is no pulmonic regurgitation present. The aortic root size is normal. There is no pericardial effusion. CONCLUSIONS -------- 1. LV size, wall thickness and systolic function are normal, with an EF greater than 55%. 2. The mitral valve is normal. 3. Mild tricuspid regurgitation present. 4. There is no evidence of pulmonary hypertension. 5. The right ventricular systolic pressure, as measured by Doppler, is 13.12mmHg. TACTICAL DEBRIEFER: Florencia Mena RDCS
--- NOTE | 2016-09-05 10:28 | P.CONS ---
History of Present Illness - Reason for Consult Consult date: 09/05/16 Diabetic gastroparesis nausea vomiting Requesting physician: Regino Chicas - History of Present Illness 26-year-old gentleman patient Dr. Miller with a past medical history of insulin dependent diabetes mellitus diagnosed 19 years of age, chronic nausea vomiting, asthma, anxiety, depression, cholecystectomy, marijuana, and GERD. Consultation requested for gastroparesis evaluation, nausea, vomiting. Patient presents with acute DKA with elevated troponins. He is scheduled for Lexiscan stress test tomorrow. Patient has had increased chronic nausea vomiting lower midsternal epigastric discomfort since his acalculous gallbladder was removed 2 years ago. Patient vomits on a daily basis mostly in the morning, bilious sometimes phlegm material. He took Protonix in the past but his prescription lapsed. He was started back on Protonix a few days prior to admission. Presently he has had no recurrence of emesis since admission but still expressing intermittent nausea. Tolerating small amounts of a regular diet. Denies any emesis, hematochezia, or melena. No history of EGD or peptic ulcer disease. Hemoglobin 15.2. White count 9.6. Glucose 200-400 range. Troponin 0.140- 0.235. Review of Systems Constitutional: Denies fever, chills, sweats, weight gain, or loss. HEENT: Negative for migraines, blurred vision or loss, earaches, drainage, tinnitus, oral mucosal lesions, dysphagia, or odynophagia. Cardiac: chest pain, no history of arrhythmias, or palpitation. Respiratory: Marijuana. Asthma. Negative for shortness of breath, hemoptysis, cough, or sputum production. Gastrointestinal: See HPI for pertinent findings. Genitourinary: Negative for hematuria, urgency, frequency, polyuria, dysuria, or penile discharge. Musculoskeletal: Negative for muscle aches, swelling, arthritis, and arthralgias. Neurologic: Negative for stroke or TIA. Endocrine: Negative for thyroid problems. Skin: Negative for rash or itching. Psychiatric: depression and anxiety All systems: negative (See HPI) Past Medical History Past Medical History: Asthma, Diabetes Mellitus, GERD/Reflux Additional Past Medical History / Comment(s): Other HX: IDDM type I History of Any Multi-Drug Resistant Organisms: None Reported Past Surgical History: Cholecystectomy Past Anesthesia/Blood Transfusion Reactions: Postoperative Nausea & Vomiting ( PONV) Additional Past Anesthesia/Blood Transfusion Reaction / Comm: Pt has never received blood. Past Psychological History: Anxiety, Depression Additional Psychological History / Comment(s): Pt has had difficulties with anxiety and depression in the past but not at this time. He is independent. He drives. Smoking Status: Current some day smoker Past Alcohol Use History: Occasional Additional Past Alcohol Use History / Comment(s): Pt states he started smoking in 2009 and quit in 2013. Past Drug Use History: Marijuana Additional Drug Use History / Comment(s): OCCASIONAL-maybe once a month. - Past Family History Father Family Medical History: Diabetes Mellitus, Hypertension Additional Family Medical History / Comment(s): type II diabetes. Mother Family Medical History: COPD Brother(s) Family Medical History: Diabetes Mellitus Additional Family Medical History / Comment(s): IDDM type I Sister(s) Family Medical History: No Reported History Medications and Allergies Home Medications Medication Instructions Recorded Confirmed Type Insulin Aspart [NovoLOG] See Protocol SQ TID-W/MEALS 10/30/15 09/03/16 History Allergies Allergy/AdvReac Type Severity Reaction Status Date / Time No Known Allergies Allergy Verified 09/03/16 22:49 Physical Exam Vitals: Vital Signs Temp Pulse Pulse Resp BP Pulse Ox 09/05/16 08:00 98.1 F 111 H 28 H 109/87 98 09/05/16 04:00 98 F 96 108 H 18 115/72 97 09/05/16 00:00 98.1 F 108 H 108 H 49 H 105/68 98 09/04/16 20:00 98.2 F 107 H 28 H 121/63 99 09/04/16 19:53 108 H 22 09/04/16 16:00 98.2 F 89 28 H 118/74 96 09/04/16 12:00 98 F 99 26 H 99/58 Intake and Output 09/04/16 09/05/16 09/05/16 22:59 06:59 14:59 Intake Total 240 240 Output Total 950 Balance 240 -710 Intake: Oral 240 240 Output: Urine 950 Other: Voiding Method Toilet Toilet Toilet Urinal Urinal Urinal # Voids 1 Weight 65.7 kg General appearance: The patient is alert, oriented, in no acute distress. HET: Head is normocephalic and atraumatic. Pupils are equal and reactive. Oropharynx is clear without lesions. Neck: Supple without lymphadenopathy. Trachea midline. Heart: S1 S2. Regular rate and rhythm. Lungs: No crackles or wheezes are heard. Abdomen: Soft, very mild midepigastric tenderness, nondistended with bowel sounds. No peritoneal signs. No palpable organomegaly or masses. Extremities: Normal skin color and turgor. No cyanosis, rash, ulceration, clubbing, or edema. Radial and pedal pulses are 2/4 bilaterally. Neurological: No focal deficits. Strength and sensation are grossly intact. Results CBC & Chem 7: 09/03/16 23:15 09/05/16 05:17 Labs: Abnormal Lab Results - Last 24 Hours (Table) 09/04/16 09/04/16 09/04/16 Range/Units 07:00 10:16 11:00 Sodium (137-145) mmol/L Chloride (98-107) mmol/L Carbon Dioxide (22-30) mmol/L BUN (9-20) mg/dL Glucose (74-99) mg/dL POC Glucose (mg/dL) 160 H 139 H (75-99) mg/dL Hemoglobin A1c 11.3 H (4.2-6.1) % Troponin I (0.000-0.034) ng/mL 09/04/16 09/04/16 09/04/16 Range/Units 11:54 12:00 12:57 Sodium (137-145) mmol/L Chloride (98-107) mmol/L Carbon Dioxide (22-30) mmol/L BUN (9-20) mg/dL Glucose (74-99) mg/dL POC Glucose (mg/dL) 134 H 103 H (75-99) mg/dL Hemoglobin A1c (4.2-6.1) % Troponin I 0.235 H* (0.000-0.034) ng/mL 09/04/16 09/04/16 09/04/16 Range/Units 17:11 18:06 20:28 Sodium (137-145) mmol/L Chloride (98-107) mmol/L Carbon Dioxide (22-30) mmol/L BUN (9-20) mg/dL Glucose (74-99) mg/dL POC Glucose (mg/dL) 285 H 227 H (75-99) mg/dL Hemoglobin A1c (4.2-6.1) % Troponin I 0.169 H* (0.000-0.034) ng/mL 09/04/16 09/05/16 09/05/16 Range/Units 23:54 05:17 07:42 Sodium 134 L (137-145) mmol/L Chloride 96 L (98-107) mmol/L Carbon Dioxide 21 L (22-30) mmol/L BUN 8 L (9-20) mg/dL Glucose 276 H (74-99) mg/dL POC Glucose (mg/dL) 348 H (75-99) mg/dL Hemoglobin A1c (4.2-6.1) % Troponin I 0.140 H* (0.000-0.034) ng/mL 09/05/16 09/05/16 Range/Units 08:55 09:51 Sodium (137-145) mmol/L Chloride (98-107) mmol/L Carbon Dioxide (22-30) mmol/L BUN (9-20) mg/dL Glucose (74-99) mg/dL POC Glucose (mg/dL) 399 H 218 H (75-99) mg/dL Hemoglobin A1c (4.2-6.1) % Troponin I (0.000-0.034) ng/mL Assessment and Plan (1) Nausea & vomiting Narrative/Plan: 26-year-old male with a history of insulin dependent diabetes mellitus since 19 years of age presents with acute DKA with elevated troponins with chronic nausea vomiting midsternal epigastric discomfort for 2 years duration after undergoing acalculus cholecystectomy. Possible underlying diabetic gastroparesis. Status: Acute (2) Diabetic ketoacidosis, type I Status: Acute (3) Elevated troponin Status: Acute (4) Diabetes mellitus type 1 Status: Acute Plan: 1. Continue with Reglan, Zofran, PPI therapy as these medications seem to be helping patient's symptoms. 2. Cardiac stress testing is scheduled for tomorrow. 3. Discussed outpatient gastric emptying study and/or EGD with patient and he is agreeable. Gastric emptying study needs to be completed at least minimum of 3 days after cardiac stress testing secondary to radiation exposure. 4. Will follow with you. Thank you for this kind referral and the opportunity to participate in the care of your patient. This consultation was discussed with Dr. Neely. The impression and plan of care have been directed as dictated.
[2016-09-05 11:23] LABS: Glucose,Whole Blood 193 mg/dL (75-99)
[2016-09-05 12:21] LABS: Glucose,Whole Blood 187 mg/dL (75-99)
[2016-09-05 12:45] LABS: Anion Gap 12 mmol/L; Blood Urea Nitrogen 9 mg/dL (9-20); Carbon Dioxide 27 mmol/L (22-30); Chloride 97 mmol/L (98-107); Glucose 179 mg/dL (74-99); Non-African American GFR(MDRD) >60 (>60 ml/min/1.73 sqM); Phosphorous 3.4 mg/dL (2.5-4.5); Potassium 3.9 mmol/L (3.5-5.1); Sodium 136 mmol/L (137-145)
[2016-09-05 13:23] LABS: Glucose,Whole Blood 205 mg/dL (75-99)
--- NOTE | 2016-09-05 14:13 | P.PN ---
Subjective This is 26-year-old patient of Dr. Miller,. He has an underlying history of juvenile diabetes type 1, asthma, gastroesophageal reflux disease. Patient initially presented to [facility] emergency center on the afternoon of September 03 with complaints of cold-like symptoms, nausea, vomiting , sinus congestion for 4 days. Blood sugars were running over 500 and was concerned about possible DKA. Blood sugar was 414 and acetone was positive. Patient was treated with IV fluids and was feeling much improved and wished to go home versus being admitted. He was provided with a prescription for Zofran and was discharged home. He returned with severe substernal chest pain. He states he also had a fever yesterday. He states since he had his gallbladder removed he does have a vomiting episode every day in the morning. Pain is in the low sternal area and he thinks it's related to his esophagus. His primary care physician has given a medications for without any improvement. 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 He was tachycardic at 124, blood sugar 495, acetone positive. He was started on insulin drip with the DKA protocol and admitted to the intensive care unit. Consult with Dr. Kenyon. Troponin was ordered and came back at 0.235. Cardiology consult has been requested. Patient is known to have noncompliance with his diabetic regime. He will need a glucometer for home. 09/05: Patient is being followed by Dr. Kenyon for ICU management. Patient is stable and will be transferred out of ICU today. Patient did have blood sugar rise to 399 for which she is now back on the insulin drip. Echocardiogram reveals EF greater than 55%, mild tricuspid regurgitation. No evidence of pulmonary hypertension. Patient has been seen by cardiology and started on a low-dose SANGITA inhibitor, statin and aspirin. He is scheduled for stress test for tomorrow. Patient has been seen by Dr. Neely for possible diabetic gastroparesis with recommendations to continue current medications with Reglan, Zofran and PPI with outpatient workup for gastric emptying study and or EGD. Objective - Vital Signs Vital signs: Vital Signs Temp 98.1 F 09/05/16 08:00 Pulse 111 H 09/05/16 08:00 Resp 28 H 09/05/16 08:00 BP 109/87 09/05/16 08:00 Pulse Ox 98 09/05/16 08:00 Intake & Output 09/04/16 09/05/16 09/05/16 18:59 06:59 18:59 Intake Total 600 480 Output Total 1000 950 Balance -400 -470 Weight 69.2 kg 65.7 kg Intake: Intake, IV Titration 600 Amount D5-0.45% NaCl with KCl 600 20Meq/l 1,000 ml @ 150 mls/hr IV .[id number] [facility] Rx# :[id number] Oral 480 Output: Urine 1000 950 Other: Voiding Method Urinal Toilet Toilet Urinal Urinal # Voids 1 - Exam General appearance: average body habitus, no acute distress - EENT Eyes: Reports anicteric sclerae, Reports EOMI, Reports PERRLA, Reports dentition normal, Reports normal apperance ENT: Reports hearing grossly normal, Reports NA/AT, Reports normal oropharynx Ears: bilateral: normal - Neck Neck: Reports normal ROM, Denies lymphadenopathy, Denies other, Denies rigidity , Denies stridor, Denies thyromegaly - Respiratory Respiratory: bilateral: CTA, negative: diminished, dullness, rales, wheezing, prolonged expiration, prolonged inspiration - Cardiovascular Rhythm: regular Heart sounds: normal: S1, S2 Abnormal Heart Sounds: Denies systolic murmur, Denies diastolic murmur, Denies rub, Denies S3 Gallop, Denies S4 Gallop, Denies click, Denies other - Gastrointestinal General gastrointestinal: Reports normal bowel sounds, no tenderness to the epigastric area, Reports soft, Denies absent bowel sounds, Denies decreased bowel sounds, Denies distended, Denies hepatomegaly, Denies hyperactive bowel sounds, Denies organomegaly, Denies rigid, Denies scaphoid, Denies splenomegaly , Denies tenderness, Denies umbilical hernia, Denies ventral hernia - Integumentary Integumentary: Reports normal, Reports normal turgor - Neurologic Neurologic: CNII-XII intact - Musculoskeletal Musculoskeletal: Reports gait normal, Reports strength equal bilaterally - Psychiatric Psychiatric: Reports A&O x's 3, Reports appropriate affect, Reports intact judgment & insight - Labs CBC & Chem 7: 09/03/16 23:15 09/05/16 11:59 Labs: Abnormal Lab Results - Last 24 Hours (Table) 09/04/16 09/04/16 09/04/16 Range/Units 07:00 11:00 11:54 Sodium (137-145) mmol/L Chloride (98-107) mmol/L Carbon Dioxide (22-30) mmol/L BUN (9-20) mg/dL Glucose (74-99) mg/dL POC Glucose (mg/dL) 139 H 134 H (75-99) mg/dL Hemoglobin A1c 11.3 H (4.2-6.1) % Troponin I (0.000-0.034) ng/mL 09/04/16 09/04/16 09/04/16 Range/Units 12:00 12:57 17:11 Sodium (137-145) mmol/L Chloride (98-107) mmol/L Carbon Dioxide (22-30) mmol/L BUN (9-20) mg/dL Glucose (74-99) mg/dL POC Glucose (mg/dL) 103 H 285 H (75-99) mg/dL Hemoglobin A1c (4.2-6.1) % Troponin I 0.235 H* (0.000-0.034) ng/mL 09/04/16 09/04/16 09/04/16 Range/Units 18:06 20:28 23:54 Sodium (137-145) mmol/L Chloride (98-107) mmol/L Carbon Dioxide (22-30) mmol/L BUN (9-20) mg/dL Glucose (74-99) mg/dL POC Glucose (mg/dL) 227 H (75-99) mg/dL Hemoglobin A1c (4.2-6.1) % Troponin I 0.169 H* 0.140 H* (0.000-0.034) ng/mL 09/05/16 09/05/16 09/05/16 Range/Units 05:17 07:42 08:55 Sodium 134 L (137-145) mmol/L Chloride 96 L (98-107) mmol/L Carbon Dioxide 21 L (22-30) mmol/L BUN 8 L (9-20) mg/dL Glucose 276 H (74-99) mg/dL POC Glucose (mg/dL) 348 H 399 H (75-99) mg/dL Hemoglobin A1c (4.2-6.1) % Troponin I (0.000-0.034) ng/mL 09/05/16 Range/Units 09:51 Sodium (137-145) mmol/L Chloride (98-107) mmol/L Carbon Dioxide (22-30) mmol/L BUN (9-20) mg/dL Glucose (74-99) mg/dL POC Glucose (mg/dL) 218 H (75-99) mg/dL Hemoglobin A1c (4.2-6.1) % Troponin I (0.000-0.034) ng/mL Assessment and Plan Plan: 1. Acute DKA secondary to diabetes mellitus type 1. 2. Chest pain with possible esophagitis. Patient does have history of indigestion related to pizza intake on last admission and possible gastroparesis for which consult GI appreciated. Continue Reglan, Zofran and PPI with plan for outpatient gastric emptying study and/or EGD. Patient also had elevated troponin also believes due to DKA. Cardiology consult appreciated. Echocardiogram as above. Patient is scheduled for stress test for tomorrow. 3. History of cholecystectomy secondary to biliary dyskinesia no history of stones liver function tests normal 4. Diabetes mellitus type 1. A shunt has been on insulin drip which now will be transitioned to scheduled insulin. Patient will need glucometer. 4. History of asthma stable and in active with no current medications. 5. Current tobacco use patient was counseled regarding a permanent smoking cessation program. 5. Intermittent marijuana use for which he uses for social reasons. GI prophylaxis and DVT prophylaxis provided Discharge plan: Return home Impression and plan of care have been directed as dictated by the signing physician. Madison Gu nurse practitioner acting as scribe for signing physician. Time with Patient: Greater than 30
[2016-09-05 14:20] LABS: Glucose,Whole Blood 146 mg/dL (75-99)
[2016-09-05 15:59] LABS: Glucose,Whole Blood 113 mg/dL (75-99)
[2016-09-05 16:54] LABS: Glucose,Whole Blood 121 mg/dL (75-99)
[2016-09-05 18:29] LABS: Glucose,Whole Blood 137 mg/dL (75-99)
--- NOTE | 2016-09-05 18:43 | PN ---
DATE OF SERVICE: 09/05/2016 INTERVAL HISTORY: The patient is a 26-year-old middle who came in with DKA, is seen today sitting up in bed, is awake and alert, feeling better, remains on an insulin drip, is out of the ICU. He is afebrile, hemodynamically stable, in no acute distress. On physical exam, VITAL SIGNS: Temp is 97.9, heart rate is 100, respiratory rate 18, blood pressure is 118/73, O2 sat is 98% on room air. HEENT: Head is normocephalic, atraumatic. Neck is supple. Trachea is midline. Lungs with some diffuse wheezes, which clear with cough. HEART: S1 and S2 are heard. Not tachycardic. Abdomen is soft. Bowel sounds are heard. Extremities with no edema. NEUROLOGIC: Patient is awake, alert, oriented. LABS: Sodium is 136, potassium is 3.9, chloride is 97, CO2 is 27. Anion gap is 12, BUN is 9, creatinine 0.74, glucose 179. Phosphorus is 3.4. IMAGING: No new imaging to review. IMPRESSION: 1. Acute diabetic ketoacidosis. 2. Diabetes mellitus type 1. 3. Anion gap metabolic acidosis which has resolved. 4. Hyponatremia. 5. Hyperkalemia, resolved. 6. Intractable nausea, vomiting, resolved. 7. Atypical chest pain, now resolved, possible esophagitis. 8. History of cholecystectomy. 9. History of asthma, unknown type. 10. Active tobacco abuse. PLAN: Continue current medications, which have been reviewed. Continue GI and DVT prophylaxis. Continue incentive spirometry and pulmonary hygiene and we will sign off following patient with you at this time and will be available p.r.n. I performed a history and physical examination of this patient and discussed the same with the dictator. I agree with the dictator's note. Any additional findings/opinions, etc. will be noted.
[2016-09-05 19:39] LABS: Glucose,Whole Blood 213 mg/dL (75-99)
[2016-09-05] MEDS: INSULIN LISPRO (humaLOG) 300 UNIT/3 ML VIAL SQ SCH ×2 (19:44)
[2016-09-05 20:30] LABS: Glucose,Whole Blood 262 mg/dL (75-99)
[2016-09-05 21:36] LABS: Glucose,Whole Blood 286 mg/dL (75-99)
[2016-09-05 22:45] LABS: Glucose,Whole Blood 267 mg/dL (75-99)
[2016-09-05 23:36] LABS: Glucose,Whole Blood 223 mg/dL (75-99)
[2016-09-06 00:12] LABS: Anion Gap 11 mmol/L; Blood Urea Nitrogen 10 mg/dL (9-20); Calcium 9.4 mg/dL (8.4-10.2); Carbon Dioxide 28 mmol/L (22-30); Chloride 98 mmol/L (98-107); Glucose 218 mg/dL (74-99); Non-African American GFR(MDRD) >60 (>60 ml/min/1.73 sqM); Potassium 3.7 mmol/L (3.5-5.1); Sodium 137 mmol/L (137-145)
[2016-09-06 00:29] LABS: Glucose,Whole Blood 175 mg/dL (75-99)
[2016-09-06 01:33] LABS: Glucose,Whole Blood 100 mg/dL (75-99)
[2016-09-06 02:37] LABS: Glucose,Whole Blood 79 mg/dL (75-99)
[2016-09-06 03:16] LABS: Glucose,Whole Blood 88 mg/dL (75-99)
[2016-09-06 03:46] LABS: Glucose,Whole Blood 82 mg/dL (75-99)
[2016-09-06 04:06] LABS: Glucose,Whole Blood 76 mg/dL (75-99)
[2016-09-06] MEDS: SODIUM CHLORIDE 0.9% 1,000 ML IV SCH (04:18)
[2016-09-06 04:41] LABS: Glucose,Whole Blood 74 mg/dL (75-99)
[2016-09-06 05:04] LABS: Glucose,Whole Blood 92 mg/dL (75-99)
[2016-09-06 05:33] LABS: Glucose,Whole Blood 80 mg/dL (75-99)
[2016-09-06 06:14] LABS: Glucose,Whole Blood 86 mg/dL (75-99)
[2016-09-06 06:55] LABS: Anion Gap 14 mmol/L; Blood Urea Nitrogen 10 mg/dL (9-20); Calcium 8.8 mg/dL (8.4-10.2); Carbon Dioxide 26 mmol/L (22-30); Chloride 100 mmol/L (98-107); Glucose 86 mg/dL (74-99); Non-African American GFR(MDRD) >60 (>60 ml/min/1.73 sqM); Potassium 3.6 mmol/L (3.5-5.1); Sodium 140 mmol/L (137-145)
[2016-09-06 07:05] LABS: Glucose,Whole Blood 106 mg/dL (75-99)
--- NOTE | 2016-09-06 08:45 | PN ---
Mr. Puente is a 26-year-old male who presented with diabetic ketoacidosis. He was noted to have minimal elevation of his troponin. He is doing well this morning. He was a little bit nauseated when his blood sugar was low. Otherwise, he is doing well. He is denying any chest pain. No dizziness. No palpitation. He remains in sinus mechanism. He continues to be at this time on aspirin once a day, Lipitor 20 mg daily, lisinopril 2.5 mg daily. PHYSICAL EXAMINATION: Blood pressure 113/60 with the heart rate in 90s. LUNGS: Clear. HEART: Regular rate and rhythm. S1, S2, no S3, no rub. ABDOMEN: Soft, nontender. EXTREMITIES: No edema. Lab data revealed BUN and creatinine of 10 and 0.6. Potassium 3.6. Calcium 8.8. IMPRESSION: 1. Diabetic ketoacidosis, improving. 2. Minimal elevation of troponin of unclear etiology. 3. Prior history of smoking. 4. Nausea and vomiting, could reflect gastroparesis. RECOMMENDATION: From the cardiac standpoint, I will continue present therapy. Will proceed with a myocardial perfusion imaging today to rule out any evidence of obstructive coronary artery disease. If there is no evidence of inducible ischemia, then no further cardiac workup will be needed.
[2016-09-06] MEDS ORDERED: REGADENOSON 0.4 MG/5 ML SYRINGE IV ONE (09:40)
[2016-09-06] MEDS: HEPARIN SODIUM,PORCINE 5,000 UNIT/ML 1 ML VIAL SQ SCH ×3 (10:24→23:15)
[2016-09-06] MEDS: ASPIRIN 81 MG CHEW PO SCH (10:25)
[2016-09-06] MEDS: ATORVASTATIN 20 MG TAB PO SCH (10:25)
[2016-09-06] MEDS: PANTOPRAZOLE 40 MG TABLET PO SCH (10:25)
[2016-09-06] MEDS: LISINOPRIL 2.5 MG TAB PO SCH (10:25)
--- NOTE | 2016-09-06 10:36 | NM ---
EXAMINATION TYPE: NM stress lexiscan cardiolite DATE OF EXAM: 09/06/2016 10:25 AM COMPARISON: NONE HISTORY: Precordial chest pain and abnormal EKG TECHNIQUE: After the intravenous administration of 10.27 mCi Tc 99m Sestamibi - Cardiolite resting S PECT images acquired 45 minutes post injection. The patient received 0.4mg Lexiscan, 27.4 mCi Tc 99m Sestamibi - Stress images obtained [address] injection FINDINGS: Review of stress and rest SPECT images demonstrates no distinct perfusion abnormality. Gated analysi s shows normal wall motion with an estimated left ventricular ejection fraction of 56 %. IMPRESSION: No scintigraphic evidence for reversible ischemia.
[2016-09-06 11:36] LABS: Glucose,Whole Blood 208 mg/dL (75-99)
[2016-09-06] MEDS: INSULIN LISPRO (humaLOG) 300 UNIT/3 ML VIAL SQ SCH ×5 (12:14→21:02)
--- NOTE | 2016-09-06 12:46 | EST ---
DATE OF SERVICE: 09/06/2016 AGE: 26Y SEX: M HT: 5'6" WT: 142 lbs. Protocol Steven: Other: Lexiscan Cardiolite Stage: Dur. of Exercise: *Heart Rate Blood Pressure *Rest: 91 Rest: 142/88 * *Max. Achieved: 114 Maximum BP: 137/84 85% PMHR: 166 100% PMHR: 195 *METS: INDICATIONS: Chest pain. MEDICATIONS: NovoLog, Lantus, Zofran. Patient was given Lexiscan injection over a period of 15 seconds. Resting EKG shows normal sinus rhythm with normal [place] interval and QRS duration and normal ST-T waves. No ST segment depression suggestive of ischemia is noted. Maximum heart rate of 114 was achieved. Maximum blood pressure of 137/84 mmHg was noted. The patient did not complain of any chest pain during the test.
--- NOTE | 2016-09-06 13:01 | P.PN ---
Subjective This is 26-year-old patient of Dr. Miller,. He has an underlying history of juvenile diabetes type 1, asthma, gastroesophageal reflux disease. Patient initially presented to [facility] emergency center on the afternoon of September 03 with complaints of cold-like symptoms, nausea, vomiting , sinus congestion for 4 days. Blood sugars were running over 500 and was concerned about possible DKA. Blood sugar was 414 and acetone was positive. Patient was treated with IV fluids and was feeling much improved and wished to go home versus being admitted. He was provided with a prescription for Zofran and was discharged home. He returned with severe substernal chest pain. He states he also had a fever yesterday. He states since he had his gallbladder removed he does have a vomiting episode every day in the morning. Pain is in the low sternal area and he thinks it's related to his esophagus. His primary care physician has given a medications for without any improvement. 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 He was tachycardic at 124, blood sugar 495, acetone positive. He was started on insulin drip with the DKA protocol and admitted to the intensive care unit. Consult with Dr. Kenyon. Troponin was ordered and came back at 0.235. Cardiology consult has been requested. Patient is known to have noncompliance with his diabetic regime. He will need a glucometer for home. 09/05: Patient is being followed by Dr. Kenyon for ICU management. Patient is stable and will be transferred out of ICU today. Patient did have blood sugar rise to 399 for which she is now back on the insulin drip. Echocardiogram reveals EF greater than 55%, mild tricuspid regurgitation. No evidence of pulmonary hypertension. Patient has been seen by cardiology and started on a low-dose SANGITA inhibitor, statin and aspirin. He is scheduled for stress test for tomorrow. Patient has been seen by Dr. Neely for possible diabetic gastroparesis with recommendations to continue current medications with Reglan, Zofran and PPI with outpatient workup for gastric emptying study and or EGD. 09/06: Stress test scheduled for today. He is denying having any chest pain or shortness of breath. Blood sugars are running between 80 and 106. if stress test is negative, patient will be transferred to the [facility] floor. Anticipate discharge home tomorrow Objective - Vital Signs Vital signs: Vital Signs Temp 97.4 F L 09/06/16 04:00 Pulse 95 09/06/16 04:00 Resp 16 09/06/16 04:00 BP 113/63 09/06/16 04:00 Pulse Ox 96 09/06/16 04:00 Intake & Output 09/05/16 09/06/16 09/06/16 18:59 06:59 18:59 Intake Total 920.918 1320.584 Balance 706.356 1327.584 Weight 64.8 kg Intake: Intake, IV Titration 47.550 1641.584 Amount Insulin Regular 100 unit 47.550 41.584 In Sodium Chloride 0.9% 100 ml @ 0.1 UNITS/KG/HR 6.63 mls/hr IV .[id number] [facility] Rx#:[id number] Sodium Chloride 0.9% 1, 1600 000 ml @ 100 mls/hr IV . Q10H [facility] Rx#:[id number] Oral 222 300 Other: Voiding Method Toilet Toilet Urinal Urinal # Voids 2 1 - Exam General appearance: average body habitus, no acute distress - EENT Eyes: Reports anicteric sclerae, Reports EOMI, Reports PERRLA, Reports dentition normal, Reports normal apperance ENT: Reports hearing grossly normal, Reports NA/AT, Reports normal oropharynx Ears: bilateral: normal - Neck Neck: Reports normal ROM, Denies lymphadenopathy, Denies other, Denies rigidity , Denies stridor, Denies thyromegaly - Respiratory Respiratory: bilateral: CTA, negative: diminished, dullness, rales, wheezing, prolonged expiration, prolonged inspiration - Cardiovascular Rhythm: regular Heart sounds: normal: S1, S2 Abnormal Heart Sounds: Denies systolic murmur, Denies diastolic murmur, Denies rub, Denies S3 Gallop, Denies S4 Gallop, Denies click, Denies other - Gastrointestinal General gastrointestinal: Reports normal bowel sounds, no tenderness to the epigastric area, Reports soft, Denies absent bowel sounds, Denies decreased bowel sounds, Denies distended, Denies hepatomegaly, Denies hyperactive bowel sounds, Denies organomegaly, Denies rigid, Denies scaphoid, Denies splenomegaly , Denies tenderness, Denies umbilical hernia, Denies ventral hernia - Integumentary Integumentary: Reports normal, Reports normal turgor - Neurologic Neurologic: CNII-XII intact - Musculoskeletal Musculoskeletal: Reports gait normal, Reports strength equal bilaterally - Psychiatric Psychiatric: Reports A&O x's 3, Reports appropriate affect, Reports intact judgment & insight - Labs CBC & Chem 7: 09/03/16 23:15 09/06/16 05:59 Labs: Abnormal Lab Results - Last 24 Hours (Table) 09/05/16 09/05/16 09/05/16 Range/Units 08:55 09:51 11:09 Sodium (137-145) mmol/L Chloride (98-107) mmol/L Creatinine (0.66-1.25) mg/dL Glucose (74-99) mg/dL POC Glucose (mg/dL) 399 H 218 H 193 H (75-99) mg/dL 09/05/16 09/05/16 09/05/16 Range/Units 11:59 12:10 13:03 Sodium 136 L (137-145) mmol/L Chloride 97 L (98-107) mmol/L Creatinine (0.66-1.25) mg/dL Glucose 179 H (74-99) mg/dL POC Glucose (mg/dL) 187 H 205 H (75-99) mg/dL 09/05/16 09/05/16 09/05/16 Range/Units 14:08 15:24 16:51 Sodium (137-145) mmol/L Chloride (98-107) mmol/L Creatinine (0.66-1.25) mg/dL Glucose (74-99) mg/dL POC Glucose (mg/dL) 146 H 113 H 121 H (75-99) mg/dL 09/05/16 09/05/16 09/05/16 Range/Units 18:27 19:36 20:29 Sodium (137-145) mmol/L Chloride (98-107) mmol/L Creatinine (0.66-1.25) mg/dL Glucose (74-99) mg/dL POC Glucose (mg/dL) 137 H 213 H 262 H (75-99) mg/dL 09/05/16 09/05/16 09/05/16 Range/Units 21:33 22:35 23:32 Sodium (137-145) mmol/L Chloride (98-107) mmol/L Creatinine (0.66-1.25) mg/dL Glucose (74-99) mg/dL POC Glucose (mg/dL) 286 H 267 H 223 H (75-99) mg/dL 09/05/16 09/06/16 09/06/16 Range/Units 23:43 00:27 01:32 Sodium (137-145) mmol/L Chloride (98-107) mmol/L Creatinine 0.60 L (0.66-1.25) mg/dL Glucose 218 H (74-99) mg/dL POC Glucose (mg/dL) 175 H 100 H (75-99) mg/dL 09/06/16 09/06/16 09/06/16 Range/Units 04:38 05:59 07:05 Sodium (137-145) mmol/L Chloride (98-107) mmol/L Creatinine 0.60 L (0.66-1.25) mg/dL Glucose (74-99) mg/dL POC Glucose (mg/dL) 74 L 106 H (75-99) mg/dL Assessment and Plan Plan: 1. Acute DKA secondary to diabetes mellitus type 1. 2. Chest pain with possible esophagitis. Patient does have history of indigestion related to pizza intake on last admission and possible gastroparesis for which consult GI appreciated. Continue Reglan, Zofran and PPI with plan for outpatient gastric emptying study and/or EGD. Patient also had elevated troponin also believes due to DKA. Cardiology consult appreciated. Echocardiogram as above. Patient is scheduled for stress test for tomorrow. 3. History of cholecystectomy secondary to biliary dyskinesia no history of stones liver function tests normal 4. Diabetes mellitus type 1. A shunt has been on insulin drip which now will be transitioned to scheduled insulin. Patient will need glucometer. 4. History of asthma stable and in active with no current medications. 5. Current tobacco use patient was counseled regarding a permanent smoking cessation program. 5. Intermittent marijuana use for which he uses for social reasons. GI prophylaxis and DVT prophylaxis provided Discharge plan: Return home Impression and plan of care have been directed as dictated by the signing physician. Madison Gu nurse practitioner acting as scribe for signing physician. Time with Patient: Greater than 30
[2016-09-06 17:06] LABS: Glucose,Whole Blood 242 mg/dL (75-99)
[2016-09-06] MEDS: INSULIN GLARGINE 100 UNIT/ML 10 ML VIAL SQ SCH (21:02)
[2016-09-06 21:04] LABS: Glucose,Whole Blood 229 mg/dL (75-99)
[2016-09-07 00:09] VITALS: RESP 18
[2016-09-07 07:18] LABS: Glucose,Whole Blood 192 mg/dL (75-99)
[2016-09-07] MEDS: INSULIN LISPRO (humaLOG) 300 UNIT/3 ML VIAL SQ SCH ×7 (07:58→20:50)
[2016-09-07] MEDS: HEPARIN SODIUM,PORCINE 5,000 UNIT/ML 1 ML VIAL SQ SCH ×3 (07:59→22:57)
[2016-09-07] MEDS: ASPIRIN 81 MG CHEW PO SCH (08:04)
[2016-09-07] MEDS: LISINOPRIL 2.5 MG TAB PO SCH (08:05)
[2016-09-07] MEDS: ATORVASTATIN 20 MG TAB PO SCH (08:05)
[2016-09-07] MEDS: PANTOPRAZOLE 40 MG TABLET PO SCH (08:05)
[2016-09-07 12:22] LABS: Glucose,Whole Blood 149 mg/dL (75-99)
[2016-09-07 16:45] LABS: Glucose,Whole Blood 310 mg/dL (75-99)
--- NOTE | 2016-09-07 20:18 | P.DS ---
Providers Date of admission: 09/04/16 01:46 Attending physician: Regino Chicas Consults: 09/04/16 05:02 Consult Physician Routine Consulting Provider: Bernadette Kenyon Consult Reason/Comments: DKA patient. Do you want consulting provider notified?: Already Contacted 09/04/16 10:16 Consult Physician Routine Consulting Provider: Joby Neely Consult Reason/Comments: gastroparesis Do you want consulting provider notified?: Yes 09/04/16 13:47 Consult Physician Routine Consulting Provider: Rena Hernandez Consult Reason/Comments: elevated troponin Do you want consulting provider notified?: Yes Primary care physician: Brett Marcus [place] Hospital Course: This is 26-year-old patient of Dr. Miller,. He has an underlying history of juvenile diabetes type 1, asthma, gastroesophageal reflux disease. Patient initially presented to [facility] emergency center on the afternoon of September 03 with complaints of cold-like symptoms, nausea, vomiting , sinus congestion for 4 days. Blood sugars were running over 500 and was concerned about possible DKA. Blood sugar was 414 and acetone was positive. Patient was treated with IV fluids and was feeling much improved and wished to go home versus being admitted. He was provided with a prescription for Zofran and was discharged home. He returned with severe substernal chest pain. He states he also had a fever yesterday. He states since he had his gallbladder removed he does have a vomiting episode every day in the morning. Pain is in the low sternal area and he thinks it's related to his esophagus. His primary care physician has given a medications for without any improvement. He has never seen a fish warden. He was tachycardic at 124, blood sugar 495, acetone positive. He was started on insulin drip with the DKA protocol and admitted to the intensive care unit. Consult with Dr. Kenyon. Troponin was ordered and came back at 0.235. Cardiology consult has been requested. Patient is known to have noncompliance with his diabetic regime. He will need a glucometer for home. 09/05: Patient is being followed by Dr. Kenyon for ICU management. Patient is stable and will be transferred out of ICU today. Patient did have blood sugar rise to 399 for which she is now back on the insulin drip. Echocardiogram reveals EF greater than 55%, mild tricuspid regurgitation. No evidence of pulmonary hypertension. Patient has been seen by cardiology and started on a low-dose SANGITA inhibitor, statin and aspirin. He is scheduled for stress test for tomorrow. Patient has been seen by Dr. Neely for possible diabetic gastroparesis with recommendations to continue current medications with Reglan, Zofran and PPI with outpatient workup for gastric emptying study and or EGD. 09/06: Stress test scheduled for today. He is denying having any chest pain or shortness of breath. Blood sugars are running between 80 and 106. if stress test is negative, [facility]. Anticipate discharge home tomorrow 09/07: Patient had a stress Lexiscan today which is negative, patient still has to do the outpatient nuclear med gastric emptying time, patient requests something for anxiety as he is severely anxious with stresses at home. Lexapro 10 mg was started and it is to be discharged today blood sugars are stable without any hypoglycemic events and patient is eating without any difficulties. 09/08 discharge was held as it was a late discharge last night patient has intermittent nausea Reglan has to be added with 5 mg 3 times a day FINAL DIAGNOSIS 1. Acute DKA secondary to diabetes mellitus type 1. Resolved with resumption of basal bolus regimen of insulin 8 patient required insulin drip resolution of ketosis noted diet has been appropriate without ongoing GI losses 2. Chest pain with possible gastroparesis. Patient does have history of indigestion related to pizza intake on last admission and possible gastroparesis for which consult GI appreciated. Continue Reglan, Zofran and PPI with plan for outpatient gastric emptying study and/or EGD. Patient also had elevated troponin also believes due to DKA. Cardiology consult appreciated. Echocardiogram as above. Patient underwent a Lexiscan stress test which is negative for stress-induced ischemia. 3. History of cholecystectomy secondary to biliary dyskinesia no history of stones liver function tests normal 4. Diabetes mellitus type 1. A shunt has been on insulin drip which now will be transitioned to scheduled insulin. Patient needs a glucometer with Accu- Cheks before meals and at bedtime 4 times a day secondary to labile blood sugar , this is necessary in controlling his blood sugar better, a [id number] evaluation was performed today, also has advice with family and patient that a temporary intensive diabetes management by Dr. Johansen can also be provided once his PCP allows this Patient was started on lisinopril 2.5 mg daily, and Lipitor 20 mg daily 4. History of asthma stable and in active with no current medications. 5. Current tobacco use patient was counseled regarding a permanent smoking cessation program. 5. Intermittent marijuana use for which he uses for social reasons. 7. Anxiety, Lexapro 10 mg started GI prophylaxis and DVT prophylaxis provided Discharge plan: Return home Follow up tests patient needs nuclear med gastric emptying time to be done as an outpatient when seen by Dr. Hayes Discharge Medication List Insulin Aspart [NovoLOG] See Protocol SQ TID-W/MEALS 10/30/15 [History] Ondansetron Odt [Zofran ODT] 4 mg PO Q8HR PRN #10 tab 09/03/16 [Rx] Aspirin 81 mg PO DAILY chew 09/07/16 [Rx] Atorvastatin [Lipitor] 20 mg PO DAILY #30 tab 09/07/16 [Rx] Escitalopram Oxalate [Lexapro] 10 mg PO DAILY #30 tab 09/07/16 [Rx] Insulin Glargine [Lantus] 25 unit SQ HS vial 09/07/16 [Rx] Lisinopril [Zestril] 2.5 mg PO DAILY #30 tab 09/07/16 [Rx] Pantoprazole [Protonix] 40 mg PO DAILY #30 tablet. 09/07/16 [Rx] Reglan 5 mg 3 times a day scheduled Patient Condition at Discharge: Fair Plan - Discharge Summary New Discharge Prescriptions: Atorvastatin [Lipitor] 20 mg PO DAILY #30 tab Escitalopram Oxalate [Lexapro] 10 mg PO DAILY #30 tab Lisinopril [Zestril] 2.5 mg PO DAILY #30 tab Metoclopramide HCl [Reglan] 5 mg PO TID #60 tablet Pantoprazole [Protonix] 40 mg PO DAILY #30 tablet. Discharge Medication List Insulin Aspart [NovoLOG] See Protocol SQ TID-W/MEALS 10/30/15 [History] Ondansetron Odt [Zofran ODT] 4 mg PO Q8HR PRN #10 tab 09/03/16 [Rx] Aspirin 81 mg PO DAILY chew 09/07/16 [Rx] Atorvastatin [Lipitor] 20 mg PO DAILY #30 tab 09/07/16 [Rx] Escitalopram Oxalate [Lexapro] 10 mg PO DAILY #30 tab 09/07/16 [Rx] Lisinopril [Zestril] 2.5 mg PO DAILY #30 tab 09/07/16 [Rx] Pantoprazole [Protonix] 40 mg PO DAILY #30 tablet.dr 09/07/16 [Rx] Insulin Glargine [Lantus] 30 unit SQ HS #0 vial 09/08/16 [Rx] Metoclopramide HCl [Reglan] 5 mg PO TID #60 tablet 09/08/16 [Rx] Follow up Appointment(s)/Referral(s): Joby Neely MD [STAFF PHYSICIAN] - 1 Week (Office closed, please call Friday to schedule appointment.) Rena Hernandez MD [STAFF PHYSICIAN] - 3 Weeks (Office closed, please call Friday for appointment.) Brett Miller MD [Primary Care Provider] - 1-2 days (Office closed, please call Friday to schedule appointment.) Patient Instructions/Handouts: Low Fat Diet (DC), Type 2 Diabetes in Adults (DC ), Acute Nausea and Vomiting (DC) Activity/Diet/Wound Care/Special Instructions: Healthy Living: #[phone] Discharge Disposition: HOME SELF-CARE
[2016-09-07] MEDS: INSULIN GLARGINE 100 UNIT/ML 10 ML VIAL SQ SCH (20:50)
[2016-09-07 20:53] LABS: Glucose,Whole Blood 310 mg/dL (75-99)
[2016-09-08 00:03] VITALS: PULSE 114
[2016-09-08 05:09] LABS: Glucose,Whole Blood 274 mg/dL (75-99)
[2016-09-08] MEDS: ONDANSETRON 4 MG/2 ML VIAL IVP PRN ×2 (05:09→10:45)
[2016-09-08 06:54] LABS: Glucose,Whole Blood 357 mg/dL (75-99)
[2016-09-08 07:32] VITALS: BP 131/75; TEMP 97.2
[2016-09-08] MEDS: INSULIN LISPRO (humaLOG) 300 UNIT/3 ML VIAL SQ SCH ×4 (07:43→12:43)
[2016-09-08] MEDS: HEPARIN SODIUM,PORCINE 5,000 UNIT/ML 1 ML VIAL SQ SCH (07:46)
[2016-09-08] MEDS: ATORVASTATIN 20 MG TAB PO SCH (07:46)
[2016-09-08] MEDS: LISINOPRIL 2.5 MG TAB PO SCH (07:46)
[2016-09-08] MEDS: ASPIRIN 81 MG CHEW PO SCH (07:46)
[2016-09-08] MEDS: PANTOPRAZOLE 40 MG TABLET PO SCH (07:47)
[2016-09-08 09:03] LABS: Glucose,Whole Blood 369 mg/dL (75-99)
[2016-09-08 12:15] LABS: Glucose,Whole Blood 275 mg/dL (75-99)
== END 2016-09-08 13:15 | disposition home or self-care (01) | DRG 638 ==
LOC: EC 22:34 → 6ICU 09-04 01:46 → 6SEL 09-05 09:56 → 4MS4W 09-06 16:58
PROVIDERS: ADMIT Internal Medicine; ATTEND Internal Medicine
DX: E10.10 Type 1 diabetes mellitus with ketoacidosis without coma (principal); E87.1 Hypo-osmolality and hyponatremia; K31.84 Gastroparesis; E10.43 Type 1 diabetes mellitus with diabetic autonomic (poly)neuropathy; E87.5 Hyperkalemia; F12.90 Cannabis use, unspecified, uncomplicated; F17.200 Nicotine dependence, unspecified, uncomplicated; F32.9 Major depressive disorder, single episode, unspecified; F41.9 Anxiety disorder, unspecified; I07.1 Rheumatic tricuspid insufficiency; J45.909 Unspecified asthma, uncomplicated; K21.0 Gastro-esophageal reflux disease with esophagitis; R74.8 Abnormal levels of other serum enzymes; E86.0 Dehydration; Z79.4 Long term (current) use of insulin; Z91.19 Patient's noncompliance with other medical treatment and regimen; Z82.49 Family history of ischemic heart disease and other diseases of the circulatory system
CPT/HCPCS: 36415; 71020; 78452; 80048; 80051; 82009; 82150; 82565; 82947; 83036; 83690; 84100; 84484; 84520; 85025; 93005; 93017; 93306; 96361; 96365; 96366; 96375; 96376; 99291

== ENCOUNTER 2016-11-27 21:26 | Emergency (ER) | payer OTHER ==
[2016-11-27 21:36] VITALS: TEMP 98.3
[2016-11-27] MEDS ORDERED: ONDANSETRON 4 MG/2 ML VIAL IVP STA (21:39)
[2016-11-27] MEDS ORDERED: SODIUM CHLORIDE 0.9% 1,000 ML IV ONE (21:39)
--- NOTE | 2016-11-27 22:36 | ED ---
General Adult HPI - General Chief complaint: Abdominal Pain Stated complaint: Vomiting Time Seen by Provider: 11/27/16 21:38 Source: patient, RN notes reviewed Mode of arrival: ambulatory Limitations: no limitations - History of Present Illness Initial comments: 26 y/o male with history of type 1 diabetes presenting for nausea and vomiting. Pt states he's had abdominal pain for the past week as well. He states persistent nausea and vomiting which is worse in the morning. He states he normally takes Zofran and Reglan for this, but ran out. Patient states he has never followed up with a GI doctor. He does state that he was told he has a diagnosis of gastroparesis. States he does take insulin at home although he was afraid to take his most recent dose of NovoLog due to his inability to tolerate by mouth. States sugar was about 250 prior to coming to the ED. He denies any chest pain or shortness of breath. Denies fevers or chills. - Related Data Home Medications Medication Instructions Recorded Confirmed Insulin Aspart [NovoLOG] See Protocol SQ TID-W/MEALS 10/30/15 11/27/16 Previous Rx's Medication Instructions Recorded Ondansetron Odt [Zofran ODT] 4 mg PO Q8HR PRN #10 tab 09/03/16 Aspirin 81 mg PO DAILY chew 09/07/16 Atorvastatin [Lipitor] 20 mg PO DAILY #30 tab 09/07/16 Escitalopram Oxalate [Lexapro] 10 mg PO DAILY #30 tab 09/07/16 Lisinopril [Zestril] 2.5 mg PO DAILY #30 tab 09/07/16 Pantoprazole [Protonix] 40 mg PO DAILY #30 tablet. 09/07/16 Insulin Glargine [Lantus] 30 unit SQ HS #0 vial 09/08/16 Metoclopramide HCl [Reglan] 5 mg PO TID #60 tablet 09/08/16 HYDROcodone/APAP 5-325MG [Diamond 1 tab PO Q6HR PRN #12 tab 11/27/16 5-325] Metoclopramide HCl [Reglan] 10 mg PO Q8HR PRN #15 tablet 11/27/16 Ondansetron Odt [Zofran Odt] 4 mg PO Q8HR PRN #15 tab 11/27/16 Allergies Allergy/AdvReac Type Severity Reaction Status Date / Time No Known Allergies Allergy Verified 11/27/16 21:50 Review of Systems ROS Statement: Those systems with pertinent positive or pertinent negative responses have been documented in the HPI. ROS Other: All systems not noted in ROS Statement are negative. Past Medical History Past Medical History: Asthma, Diabetes Mellitus, GERD/Reflux Additional Past Medical History / Comment(s): Other HX: IDDM type I History of Any Multi-Drug Resistant Organisms: None Reported Past Surgical History: Cholecystectomy Past Anesthesia/Blood Transfusion Reactions: Postoperative Nausea & Vomiting ( PONV) Additional Past Anesthesia/Blood Transfusion Reaction / Comment(s): Pt has never received blood. Past Psychological History: Anxiety, Depression Additional Psychological History / Comment(s): Pt has had difficulties with anxiety and depression in the past but not at this time. He is independent. He drives. Smoking Status: Current some day smoker Past Alcohol Use History: Occasional Additional Past Alcohol Use History / Comment(s): Pt states he started smoking in 2009 and 10 used to smoke. Past Drug Use History: Marijuana Additional Drug Use History / Comment(s): OCCASIONAL-maybe once a month. - Past Family History Father Family Medical History: Diabetes Mellitus, Hypertension Additional Family Medical History / Comment(s): type II diabetes. Mother Family Medical History: COPD Brother(s) Family Medical History: Diabetes Mellitus Additional Family Medical History / Comment(s): IDDM type I Sister(s) Family Medical History: No Reported History General Exam - General Exam Comments Initial Comments: General: Awake and Alert. No acute distress. Does not appear acutely ill. Eyes: CHRISTI, EOM intact. No nystagmus. No scleral icterus. HENT: Atraumatic, normocephalic. Mucous membranes moist. Trachea midline. Neck: The neck is supple, there is no tenderness or JVD. Cardiovascular: Regular rate and rhythm. No murmur, rub, or gallop is appreciated. Distal pulses intact. Respiratory: Lungs are clear to auscultation bilaterally. No wheezes, rales, rhonchi. No respiratory distress. Gastrointestinal: Soft, mild epigastric tenderness. No rebound or guarding. Non -distended. No masses or organomegaly noted. No CVA tenderness. Musculoskeletal: No tenderness. Normal ROM. No gross deformity. No strength deficits. Neurological: A&Ox3. CN II-XII grossly intact, There are no obvious motor or sensory deficits. Coordination appears grossly intact. Speech is normal. Skin: Skin is warm and dry and no rashes or lesions are noted. Psychiatric: Cooperative, appropriate mood & affect, normal judgment. Limitations: no limitations Course Vital Signs 11/27/16 11/28/16 21:34 00:28 Temperature 98.3 F Pulse Rate 114 H 98 Respiratory 22 16 Rate Blood Pressure 121/88 129/68 O2 Sat by Pulse 97 99 Oximetry EKG Findings - EKG Comments: EKG Findings:: EKG 23:19. Sinus rhythm. Rate 88. Normal axis. Possible RVH. No STEMI. Nonspecific EKG. Medical Decision Making - Medical Decision Making 26-year-old male presenting for abdominal pain and nausea and vomiting. Patient with history of diabetes and gastroparesis. He has not seen a GI specialist recently regarding this. He was recently started on stool softeners for constipation. He states he ran out of Zofran and Reglan medications. On initial exam he has mild abdominal tenderness but no evidence of acute peritonitis. IV fluids, pain and nausea medication ordered. Lab work was stable CBC, stable BMP. Noted hyperglycemia. Patient given IV fluids. LFTs stable. Lipase negative. Patient reevaluated and states he is feeling improved. Able tolerate by mouth. Discussed results and importance of close glycemic control. No evidence of DKA at this time. Discussed close follow-up with PCP and recommend he follow up with GI specialist, given referral. Rx for nausea medications pain medication provided. Discussed concerning signs symptoms for immediate return to the ED. Patient is agreeable with plan and discharge home. - Lab Data Result diagrams: 11/27/16 22:49 11/27/16 22:49 Lab Results 11/27/16 11/27/16 11/27/16 Range/Units 22:49 22:49 23:15 WBC 6.5 (3.8-10.6) k/uL RBC 5.75 (4.30-5.90) m/uL Hgb 17.2 (13.0-17.5) gm/dL Hct 49.3 (39.0-53.0) % MCV 85.7 (80.0-100.0) fL MCH 30.0 (25.0-35.0) pg MCHC 35.0 (31.0-37.0) g/dL RDW 13.0 (11.5-15.5) % Plt Count 243 (150-450) k/uL Neutrophils % 71 % Lymphocytes % 21 % Monocytes % 4 % Eosinophils % 2 % Basophils % 1 % Neutrophils # 4.6 (1.3-7.7) k/uL Lymphocytes # 1.4 (1.0-4.8) k/uL Monocytes # 0.3 (0-1.0) k/uL Eosinophils # 0.1 (0-0.7) k/uL Basophils # 0.1 (0-0.2) k/uL Sodium 138 (137-145) mmol/L Potassium 4.8 (3.5-5.1) mmol/L Chloride 96 L (98-107) mmol/L Carbon Dioxide 26 (22-30) mmol/L Anion Gap 16 mmol/L BUN 15 (9-20) mg/dL Creatinine 0.80 (0.66-1.25) mg/dL Est GFR (MDRD) Af Amer >60 (>60 ml/min/1.73 sqM) Est GFR (MDRD) Non-Af >60 (>60 ml/min/1.73 sqM) Glucose 298 H (74-99) mg/dL POC Glucose (mg/dL) 277 H (75-99) mg/dL POC Glu [employer] Supervisor ID Isacc Clay Calcium 10.2 (8.4-10.2) mg/dL Total Bilirubin 1.3 (0.2-1.3) mg/dL AST 17 (17-59) U/L ALT 34 (21-72) U/L Alkaline Phosphatase 79 (38-126) U/L Total Protein 7.5 (6.3-8.2) g/dL Albumin 5.1 H (3.5-5.0) g/dL Lipase 24 (23-300) U/L - EKG Data -: EKG Interpreted by Wi EKG shows normal: sinus rhythm Rate: normal Disposition Clinical Impression: Nonspecific abdominal pain, Nausea and vomiting, Gastroparesis, Diabetes type I Disposition: HOME SELF-CARE Condition: Stable Instructions: Type 1 Diabetes in Adults (ED), Abdominal Pain (ED), Gastroparesis (ED) Prescriptions: HYDROcodone/APAP 5-325MG [Diamond 5-325] 1 tab PO Q6HR PRN #12 tab PRN Reason: Pain Metoclopramide HCl [Reglan] 10 mg PO Q8HR PRN #15 tablet PRN Reason: Nausea And Vomiting Ondansetron Odt [Zofran Odt] 4 mg PO Q8HR PRN #15 tab PRN Reason: Nausea Referrals: Brett Miller MD [Primary Care Provider] - 1-2 days Joby Neely MD [STAFF PHYSICIAN] - 1-2 days Time of Disposition: 00:10
[2016-11-27 22:56] LABS: Basophils # (A) 0.1 k/uL (0-0.2); Basophils % (A) 1 %; CH 31.2; CHCM 36.5; Eosinophils # (A) 0.1 k/uL (0-0.7); Eosinophils % (A) 2 %; HCT 49.3 % (39.0-53.0); HDW 3.19; HGB 17.2 gm/dL (13.0-17.5); Luc # (Auto) 0.09; Luc % (Auto) 1; Lymphocytes # (A) 1.4 k/uL (1.0-4.8); Lymphocytes % (A) 21 %; MCV 85.7 fL (80.0-100.0); Monocytes # (A) 0.3 k/uL (0-1.0); Monocytes % (A) 4 %; Neutrophils # (A) 4.6 k/uL (1.3-7.7); Neutrophils % (A) 71 %; RBC 5.75 m/uL (4.30-5.90); WBC 6.5 k/uL (3.8-10.6); WBC (Perox) 6.12
[2016-11-27 23:04] LABS: ALT 34 U/L (21-72); AST 17 U/L (17-59); Alkaline Phosphatase 79 U/L (38-126); Anion Gap 16 mmol/L; Blood Urea Nitrogen 15 mg/dL (9-20); Calcium 10.2 mg/dL (8.4-10.2); Carbon Dioxide 26 mmol/L (22-30); Chloride 96 mmol/L (98-107); Glucose 298 mg/dL (74-99); Non-African American GFR(MDRD) >60 (>60 ml/min/1.73 sqM); Potassium 4.8 mmol/L (3.5-5.1); Sodium 138 mmol/L (137-145); Total Bilirubin 1.3 mg/dL (0.2-1.3); Total Protein 7.5 g/dL (6.3-8.2)
[2016-11-27 23:27] LABS: Glucose,Whole Blood 277 mg/dL (75-99)
[2016-11-27] MEDS ORDERED: MORPHINE SULFATE 4 MG/ML SYRINGE IVP STA (23:37)
[2016-11-27] MEDS ORDERED: METOCLOPRAMIDE 5 MG/ML 2 ML VIAL IVP STA (23:37)
[2016-11-28 00:29] VITALS: BP 129/68; PULSE 98; RESP 16
== END 2016-11-28 00:28 | disposition home or self-care (01) ==
LOC: EC 21:26
DX: E10.43 Type 1 diabetes mellitus with diabetic autonomic (poly)neuropathy (principal); K31.84 Gastroparesis; E10.65 Type 1 diabetes mellitus with hyperglycemia; R11.2 Nausea with vomiting, unspecified; R10.9 Unspecified abdominal pain; F17.200 Nicotine dependence, unspecified, uncomplicated; Z79.4 Long term (current) use of insulin; Z90.49 Acquired absence of other specified parts of digestive tract; Z83.3 Family history of diabetes mellitus
CPT/HCPCS: 36415; 93005; 80053; 83690; 85025; 99284; 96374; 96375 ×2; 96361; J2270; J2765; J2405

== ENCOUNTER 2016-12-05 07:44 | Emergency (ER) | payer OTHER ==
[2016-12-05] MEDS ORDERED: SODIUM CHLORIDE 0.9% 2,000 ML IV STA (08:05)
[2016-12-05] MEDS ORDERED: SODIUM CHLORIDE 0.9% 1,000 ML IV STA (08:05)
[2016-12-05] MEDS ORDERED: METOCLOPRAMIDE 5 MG/ML 2 ML VIAL IVP STA ×2 (08:05→10:07)
--- NOTE | 2016-12-05 08:14 | ED ---
Nausea/Vomiting/Diarrhea HPI - General Chief complaint: Nausea/Vomiting/Diarrhea Stated complaint: vomiting Time Seen by Provider: 12/05/16 07:50 Source: patient, family, RN notes reviewed Mode of arrival: ambulatory Limitations: no limitations - History of Present Illness Initial comments: This is a 26-year-old male with a history of insulin-dependent diabetes who states he has had 2 days of nausea vomiting and generally not feeling well. He is has some dizziness and some chills after vomiting no cough or phlegm production. He was in the hospital last week for a similar presentation. No diarrhea no dysuria no other symptoms. Abdominal pain is epigastric. Patient did have gallbladder taken out about 2 years ago. Dad relates to these had increased issues with nausea vomiting since the cholecystectomy. MD complaint: nausea, vomiting, abdominal pain - Related Data Home Medications Medication Instructions Recorded Confirmed Insulin Aspart [NovoLOG] See Protocol SQ TID-W/MEALS 10/30/15 12/05/16 Previous Rx's Medication Instructions Recorded Aspirin 81 mg PO DAILY chew 09/07/16 Atorvastatin [Lipitor] 20 mg PO DAILY #30 tab 09/07/16 Escitalopram Oxalate [Lexapro] 10 mg PO DAILY #30 tab 09/07/16 Lisinopril [Zestril] 2.5 mg PO DAILY #30 tab 09/07/16 Pantoprazole [Protonix] 40 mg PO DAILY #30 tablet. 09/07/16 Insulin Glargine [Lantus] 30 unit SQ HS #0 vial 09/08/16 HYDROcodone/APAP 5-325MG [Kamrar 1 tab PO Q6HR PRN #12 tab 11/27/16 5-325] Metoclopramide HCl [Reglan] 10 mg PO Q8HR PRN #15 tablet 11/27/16 Ondansetron Odt [Zofran Odt] 4 mg PO Q8HR PRN #15 tab 11/27/16 Allergies Allergy/AdvReac Type Severity Reaction Status Date / Time No Known Allergies Allergy Verified 12/05/16 07:48 Review of Systems ROS Statement: Those systems with pertinent positive or pertinent negative responses have been documented in the HPI. ROS Other: All systems not noted in ROS Statement are negative. Past Medical History Past Medical History: Asthma, Diabetes Mellitus, GERD/Reflux Additional Past Medical History / Comment(s): Other HX: IDDM type I History of Any Multi-Drug Resistant Organisms: None Reported Past Surgical History: Cholecystectomy Past Anesthesia/Blood Transfusion Reactions: Postoperative Nausea & Vomiting ( PONV) Additional Past Anesthesia/Blood Transfusion Reaction / Comment(s): Pt has never received blood. Past Psychological History: Anxiety, Depression Additional Psychological History / Comment(s): Pt has had difficulties with anxiety and depression in the past but not at this time. He is independent. He drives. Smoking Status: Current some day smoker Past Alcohol Use History: Occasional Additional Past Alcohol Use History / Comment(s): Pt states he started smoking in 2009 and 10 used to smoke. Past Drug Use History: Marijuana Additional Drug Use History / Comment(s): OCCASIONAL-maybe once a month. - Past Family History Father Family Medical History: Diabetes Mellitus, Hypertension Additional Family Medical History / Comment(s): type II diabetes. Mother Family Medical History: COPD Brother(s) Family Medical History: Diabetes Mellitus Additional Family Medical History / Comment(s): IDDM type I Sister(s) Family Medical History: No Reported History General Exam - General Exam Comments Initial Comments: This a well-developed well-nourished awake alert oriented 3 male Limitations: no limitations General appearance: alert, anxious, in distress Head exam: Present: atraumatic, normocephalic, normal inspection Eye exam: Present: normal appearance, PERRL, EOMI. Absent: scleral icterus, conjunctival injection, periorbital swelling ENT exam: Present: mucous membranes dry Neck exam: Present: normal inspection. Absent: tenderness, meningismus, lymphadenopathy Respiratory exam: Present: normal lung sounds bilaterally. Absent: respiratory distress, wheezes, rales, rhonchi, stridor Cardiovascular Exam: Present: normal rhythm, tachycardia, normal heart sounds. Absent: systolic murmur, diastolic murmur, rubs, gallop, clicks GI/Abdominal exam: Present: soft, tenderness (Very minimal epigastric discomfort to palpation no guarding no rebound no masses no bruits), normal bowel sounds. Absent: distended, guarding, rebound, rigid Rectal exam: Present: deferred Extremities exam: Present: normal inspection, full ROM, normal capillary refill. Absent: tenderness, pedal edema, joint swelling, calf tenderness Back exam: Present: normal inspection Neurological exam: Present: alert, oriented X3, CN II-XII intact Psychiatric exam: Present: normal affect, normal mood Skin exam: Present: warm, dry, intact, normal color. Absent: rash Course Vital Signs 12/05/16 12/05/16 07:46 09:56 Temperature 98.5 F Pulse Rate 108 H 110 H Respiratory 20 16 Rate Blood Pressure 138/85 143/71 O2 Sat by Pulse 100 100 Oximetry - Reevaluation(s) Reevaluation #1: 12/05/16 10:08 The patient is feeling improved though still slightly nauseated. He'll receive additional antiemetics and IV fluids. His acetone is negative he is overall feeling better. Medical Decision Making - Medical Decision Making The patient is feeling much improved this time he has no more nausea vomiting he will be discharged I did recommend follow-up with GI. - Lab Data Result diagrams: 12/05/16 08:11 12/05/16 08:11 Lab Results 12/05/16 12/05/16 12/05/16 Range/Units 08:10 08:11 08:11 WBC 7.9 (3.8-10.6) k/uL RBC 5.87 (4.30-5.90) m/uL Hgb 17.6 H (13.0-17.5) gm/dL Hct 49.6 (39.0-53.0) % MCV 84.6 (80.0-100.0) fL MCH 30.1 (25.0-35.0) pg MCHC 35.6 (31.0-37.0) g/dL RDW 12.7 (11.5-15.5) % Plt Count 312 (150-450) k/uL Neutrophils % 79 % Lymphocytes % 15 % Monocytes % 4 % Eosinophils % 0 % Basophils % 1 % Neutrophils # 6.3 (1.3-7.7) k/uL Lymphocytes # 1.2 (1.0-4.8) k/uL Monocytes # 0.3 (0-1.0) k/uL Eosinophils # 0.0 (0-0.7) k/uL Basophils # 0.1 (0-0.2) k/uL Hyperchromasia Slight Sodium 139 (137-145) mmol/L Potassium 4.4 (3.5-5.1) mmol/L Chloride 94 L (98-107) mmol/L Carbon Dioxide 26 (22-30) mmol/L Anion Gap 19 mmol/L BUN 23 H (9-20) mg/dL Creatinine 0.74 (0.66-1.25) mg/dL Est GFR (MDRD) Af Amer >60 (>60 ml/min/1.73 sqM) Est GFR (MDRD) Non-Af >60 (>60 ml/min/1.73 sqM) Glucose 284 H (74-99) mg/dL POC Glucose (mg/dL) 268 H (75-99) mg/dL POC Glu Respooler ID Amber Aguilar Calcium 10.8 H (8.4-10.2) mg/dL Magnesium 1.7 (1.6-2.3) mg/dL Total Bilirubin 1.5 H (0.2-1.3) mg/dL AST 16 L (17-59) U/L ALT 28 (21-72) U/L Alkaline Phosphatase 78 (38-126) U/L Total Protein 8.3 H (6.3-8.2) g/dL Albumin 5.3 H (3.5-5.0) g/dL Amylase 46 (30-110) U/L Lipase 19 L (23-300) U/L Urine Color Urine Appearance (Clear) Urine pH (5.0-8.0) Ur Specific [place] (1.001-1.035) Urine Protein (Negative) Urine Glucose (UA) (Negative) Urine Ketones (Negative) Urine Blood (Negative) Urine Nitrite (Negative) Urine Bilirubin (Negative) Urine Urobilinogen (<2.0) mg/dL Ur Leukocyte Esterase (Negative) Urine RBC (0-5) /hpf Urine WBC (0-5) /hpf Ur Squamous Epith Cells (0-4) /hpf Urine Mucus (None) /hpf Acetone, Qual Negative (Negative) 12/05/16 Range/Units 08:11 WBC (3.8-10.6) k/uL RBC (4.30-5.90) m/uL Hgb (13.0-17.5) gm/dL Hct (39.0-53.0) % MCV (80.0-100.0) fL MCH (25.0-35.0) pg MCHC (31.0-37.0) g/dL RDW (11.5-15.5) % Plt Count (150-450) k/uL Neutrophils % % Lymphocytes % % Monocytes % % Eosinophils % % Basophils % % Neutrophils # (1.3-7.7) k/uL Lymphocytes # (1.0-4.8) k/uL Monocytes # (0-1.0) k/uL Eosinophils # (0-0.7) k/uL Basophils # (0-0.2) k/uL Hyperchromasia Sodium (137-145) mmol/L Potassium (3.5-5.1) mmol/L Chloride (98-107) mmol/L Carbon Dioxide (22-30) mmol/L Anion Gap mmol/L BUN (9-20) mg/dL Creatinine (0.66-1.25) mg/dL Est GFR (MDRD) Af Amer (>60 ml/min/1.73 sqM) Est GFR (MDRD) Non-Af (>60 ml/min/1.73 sqM) Glucose (74-99) mg/dL POC Glucose (mg/dL) (75-99) mg/dL POC Glu Respooler ID Calcium (8.4-10.2) mg/dL Magnesium (1.6-2.3) mg/dL Total Bilirubin (0.2-1.3) mg/dL AST (17-59) U/L ALT (21-72) U/L Alkaline Phosphatase (38-126) U/L Total Protein (6.3-8.2) g/dL Albumin (3.5-5.0) g/dL Amylase (30-110) U/L Lipase (23-300) U/L Urine Color Yellow Urine Appearance Clear (Clear) Urine pH 6.0 (5.0-8.0) Ur Specific [place] 1.029 (1.001-1.035) Urine Protein 1+ H (Negative) Urine Glucose (UA) 4+ H (Negative) Urine Ketones 4+ H (Negative) Urine Blood Negative (Negative) Urine Nitrite Negative (Negative) Urine Bilirubin 1+ H (Negative) Urine Urobilinogen 3.0 (<2.0) mg/dL Ur Leukocyte Esterase Negative (Negative) Urine RBC 2 (0-5) /hpf Urine WBC 1 (0-5) /hpf Ur Squamous Epith Cells <1 (0-4) /hpf Urine Mucus Many H (None) /hpf Acetone, Qual (Negative) - Radiology Data Radiology results: report reviewed (I did review the imaging and reports no acute findings.), image reviewed Disposition Clinical Impression: Acute gastritis, Dehydration Disposition: HOME SELF-CARE Condition: Good Referrals: Brett Miller MD [Primary Care Provider] - 1-2 days Joby Neely MD [STAFF PHYSICIAN] - 1-2 days
[2016-12-05 08:18] LABS: Glucose,Whole Blood 268 mg/dL (75-99)
[2016-12-05 08:38] LABS: Appearance,Urine Clear (Clear); Bilirubin,Urine 1+ (Negative); Glucose,Urine (UA) 4+ (Negative); Leukocyte Esterase,Urine Negative (Negative); Mucus,Urine Many /hpf; Nitrite,Urine Negative (Negative); Particle Count 10393; Protein,Urine 1+ (Negative); RBC,Urine 2 /hpf (0-5); Specific Gravity,Urine 1.029 (1.001-1.035); Squamous Epithelial Cell,Urine <1 /hpf (0-4); UA Billing (MACRO vs. MICRO) MICRO; WBC,Urine 1 /hpf (0-5)
[2016-12-05 08:39] LABS: Basophils # (A) 0.1 k/uL (0-0.2); Basophils % (A) 1 %; CH 31.3; CHCM 37.1; Eosinophils % (A) 0 %; HCT 49.6 % (39.0-53.0); HDW 3.22; HGB 17.6 gm/dL (13.0-17.5); Hyperchromasia Slight; Luc # (Auto) 0.08; Luc % (Auto) 1; Lymphocytes # (A) 1.2 k/uL (1.0-4.8); Lymphocytes % (A) 15 %; MCH 30.1 pg (25.0-35.0); MCHC 35.6 g/dL (31.0-37.0); MCV 84.6 fL (80.0-100.0); Mean Platelet Volume 7.1; Monocytes # (A) 0.3 k/uL (0-1.0); Monocytes % (A) 4 %; Neutrophils # (A) 6.3 k/uL (1.3-7.7); Neutrophils % (A) 79 %; RBC 5.87 m/uL (4.30-5.90); RDW 12.7 % (11.5-15.5); WBC 7.9 k/uL (3.8-10.6); WBC (Perox) 8.06
[2016-12-05 08:45] LABS: ALT 28 U/L (21-72); AST 16 U/L (17-59); Alkaline Phosphatase 78 U/L (38-126); Amylase 46 U/L (30-110); Anion Gap 19 mmol/L; Blood Urea Nitrogen 23 mg/dL (9-20); Calcium 10.8 mg/dL (8.4-10.2); Carbon Dioxide 26 mmol/L (22-30); Chloride 94 mmol/L (98-107); Glucose 284 mg/dL (74-99); Magnesium 1.7 mg/dL (1.6-2.3); Non-African American GFR(MDRD) >60 (>60 ml/min/1.73 sqM); Potassium 4.4 mmol/L (3.5-5.1); Sodium 139 mmol/L (137-145); Total Bilirubin 1.5 mg/dL (0.2-1.3); Total Protein 8.3 g/dL (6.3-8.2)
[2016-12-05 09:00] LABS: Ketones,Urine 4+ (Negative)
--- NOTE | 2016-12-05 09:07 | XR ---
EXAMINATION TYPE: XR abdomen acute w cxr DATE OF EXAM: 12/05/2016 8:44 AM COMPARISON: None HISTORY: Pain, vomiting TECHNIQUE: Pain FINDINGS: Lung melendez are clear. No free air is under the diaphragm. Normal colonic bowel gas present . Cholecystectomy clips are present. Psoas margins are poorly visualized. IMPRESSION: 1. Normal acute abdominal series
[2016-12-05] MEDS ORDERED: SODIUM CHLORIDE 0.9% 500 ML IV STA (10:07)
[2016-12-05 12:22] VITALS: BP 127/66; PULSE 112; RESP 18; TEMP 98.3
== END 2016-12-05 12:28 | disposition home or self-care (01) ==
LOC: EC 07:44
DX: K29.00 Acute gastritis without bleeding (principal); E86.0 Dehydration; R00.0 Tachycardia, unspecified; E11.9 Type 2 diabetes mellitus without complications; F17.200 Nicotine dependence, unspecified, uncomplicated; Z79.4 Long term (current) use of insulin; Z90.49 Acquired absence of other specified parts of digestive tract
CPT/HCPCS: 36415; 80053; 82150; 82009; 83690; 83735; 85025; 81001; 74022; 99284; 96374; 96376; 96361 ×4; J2765

== ENCOUNTER 2016-12-22 18:15 | Emergency (ER) | payer OTHER ==
[2016-12-22 18:20] VITALS: BP 120/65; TEMP 98.3
--- NOTE | 2016-12-22 18:49 | ED ---
Male Urogenital HPI - General Chief complaint: Urogenital Stated complaint: MALE Time Seen by Provider: 12/22/16 18:23 Source: patient, RN notes reviewed Mode of arrival: ambulatory Limitations: no limitations - History of Present Illness Initial comments: 26-year-old male presents emergency Department chief complaint of dysuria. Patient states his been ongoing for last 2 months. Patient states that there is irritation, redness around his urethra. Patient states that he saw his primary care physician V times for this and they have checked his urine but he does not yet any of his results told him. Patient states that he was given some nystatin cream any use that with no relief. Patient states she has not been sexually active in 2 years. Patient denies any penile drainage denies any trauma. Patient is a diabetic and states his blood sugars have now been elevated. - Related Data Home Medications Medication Instructions Recorded Confirmed Insulin Aspart [NovoLOG] See Protocol SQ TID-W/MEALS 10/30/15 12/22/16 Aspirin EC [Ecotrin Low Dose] 81 mg PO DAILY 12/22/16 12/22/16 Insulin Glargine [Lantus] 28 unit SQ HS 12/22/16 12/22/16 Previous Rx's Medication Instructions Recorded Atorvastatin [Lipitor] 20 mg PO DAILY #30 tab 09/07/16 Escitalopram Oxalate [Lexapro] 10 mg PO DAILY #30 tab 09/07/16 Lisinopril [Zestril] 2.5 mg PO DAILY #30 tab 09/07/16 Pantoprazole [Protonix] 40 mg PO DAILY #30 tablet. 09/07/16 Fluconazole [Diflucan] 150 mg PO ONCE #4 tab 12/22/16 Phenazopyridine [Pyridium] 200 mg PO TID #6 tablet 12/22/16 Allergies Allergy/AdvReac Type Severity Reaction Status Date / Time No Known Allergies Allergy Verified 12/22/16 19:22 Review of Systems ROS Statement: Those systems with pertinent positive or pertinent negative responses have been documented in the HPI. ROS Other: All systems not noted in ROS Statement are negative. Past Medical History Past Medical History: Asthma, Diabetes Mellitus, GERD/Reflux Additional Past Medical History / Comment(s): Other HX: IDDM type I History of Any Multi-Drug Resistant Organisms: None Reported Past Surgical History: Cholecystectomy Past Anesthesia/Blood Transfusion Reactions: Postoperative Nausea & Vomiting ( PONV) Additional Past Anesthesia/Blood Transfusion Reaction / Comment(s): Pt has never received blood. Past Psychological History: Anxiety, Depression Additional Psychological History / Comment(s): Pt has had difficulties with anxiety and depression in the past but not at this time. He is independent. He drives. Smoking Status: Current some day smoker Past Alcohol Use History: Occasional Additional Past Alcohol Use History / Comment(s): Pt states he started smoking in 2009 and 10 used to smoke. Past Drug Use History: Marijuana Additional Drug Use History / Comment(s): OCCASIONAL-maybe once a month. - Past Family History Father Family Medical History: Diabetes Mellitus, Hypertension Additional Family Medical History / Comment(s): type II diabetes. Mother Family Medical History: COPD Brother(s) Family Medical History: Diabetes Mellitus Additional Family Medical History / Comment(s): IDDM type I Sister(s) Family Medical History: No Reported History General Exam Limitations: no limitations General appearance: alert, in no apparent distress Respiratory exam: Present: normal lung sounds bilaterally. Absent: respiratory distress, wheezes, rales, rhonchi, stridor Cardiovascular Exam: Present: regular rate, normal rhythm, normal heart sounds. Absent: systolic murmur, diastolic murmur, rubs, gallop, clicks GI/Abdominal exam: Present: soft, normal bowel sounds. Absent: distended, tenderness, guarding, rebound, rigid exam: Present: circumcision. Absent: normal inspection (Mild erythema of), testicular tenderness ( the urethra opening), urethral discharge, scrotal swelling Skin exam: Present: warm, dry Course Vital Signs 12/22/16 18:18 Temperature 98.3 F Pulse Rate 124 H Respiratory 18 Rate Blood Pressure 120/65 O2 Sat by Pulse 96 Oximetry Medical Decision Making - Medical Decision Making 26-year-old male presented for dysuria. Patient most likely has urethritis secondary to use because of his hypoglycemia. Patient we given Diflucan, Pyridium. We did discuss strict control of his Leukos. Patient is refusing to stay for management of his glucose at this time. Patient states he can take his own insulin at home. - Lab Data Lab Results 12/22/16 12/22/16 Range/Units 18:56 19:33 POC Glucose (mg/dL) 356 H (75-99) mg/dL POC Glu Web Search Evaluator ID Vicky Wilder Urine Color Yellow Urine Appearance Clear (Clear) Urine pH 6.5 (5.0-8.0) Ur Specific [place] 1.020 (1.001-1.035) Urine Protein Negative (Negative) Urine Glucose (UA) 4+ H (Negative) Urine Ketones Negative (Negative) Urine Blood Negative (Negative) Urine Nitrite Negative (Negative) Urine Bilirubin Negative (Negative) Urine Urobilinogen <2.0 (<2.0) mg/dL Ur Leukocyte Esterase Negative (Negative) Disposition Clinical Impression: Hyperglycemia, Urethritis Disposition: HOME SELF-CARE Condition: Stable Instructions: Nonspecific Urethritis in Men (ED) Additional Instructions: Please return to the Emergency Department if symptoms worsen or any other concerns. Prescriptions: Fluconazole [Diflucan] 150 mg PO ONCE #4 tab Phenazopyridine [Pyridium] 200 mg PO TID #6 tablet Referrals: Brett Miller MD [Primary Care Provider] - 1-2 days
[2016-12-22 19:20] LABS: Appearance,Urine Clear (Clear); Bilirubin,Urine Negative (Negative); Glucose,Urine (UA) 4+ (Negative); Ketones,Urine Negative (Negative); Leukocyte Esterase,Urine Negative (Negative); Nitrite,Urine Negative (Negative); PH, Urine 6.5 (5.0-8.0); Protein,Urine Negative (Negative); UA Billing (MACRO vs. MICRO) CHEM; Urobilinogen,Urine <2.0 mg/dL (<2.0)
[2016-12-22 19:35] LABS: Glucose,Whole Blood 356 mg/dL (75-99)
[2016-12-22 19:53] VITALS: PULSE 78; RESP 16
== END 2016-12-22 19:45 | disposition home or self-care (01) ==
LOC: EC 18:15
DX: N34.2 Other urethritis (principal); E11.65 Type 2 diabetes mellitus with hyperglycemia; F17.200 Nicotine dependence, unspecified, uncomplicated; Z79.4 Long term (current) use of insulin; Z79.82 Long term (current) use of aspirin
CPT/HCPCS: 36415; 81003; 87086; 87491; 87591; 99283

== ENCOUNTER 2017-01-07 18:48 | Emergency (ER) | payer OTHER ==
[2017-01-07] MEDS ORDERED: SODIUM CHLORIDE 0.9% 2,000 ML IV STA (18:52)
[2017-01-07] MEDS ORDERED: ONDANSETRON 4 MG/2 ML VIAL IVP STA (18:52)
--- NOTE | 2017-01-07 19:10 | ED ---
Nausea/Vomiting/Diarrhea HPI - General Chief complaint: Nausea/Vomiting/Diarrhea Stated complaint: vomiting Time Seen by Provider: 01/07/17 18:52 Source: patient, RN notes reviewed Mode of arrival: ambulatory Limitations: no limitations - History of Present Illness Initial comments: this a 26-year-old male presents emergency Department chief complaint of nausea vomiting. Patient states she's been vomiting for the last few days. Patient is concern is his diabetic. Patient states his blood sugar has only been in the 200s. Patient states that he has a history of DKA. Patient states that he' s been having these on and off issues. He has no real abdominal pain. Patient had a prior cholecystectomy. Patient does admit to some GERD type symptoms. Patient denies any fever, chills, diarrhea constipation. Denies dysuria hematuria. Patient denies any sick contacts. - Related Data Home Medications Medication Instructions Recorded Confirmed Insulin Aspart [NovoLOG] See Protocol SQ TID-W/MEALS 10/30/15 01/07/17 Aspirin EC [Ecotrin Low Dose] 81 mg PO DAILY 12/22/16 01/07/17 Insulin Glargine [Lantus] 28 unit SQ HS 12/22/16 01/07/17 Lisinopril [Zestril] 2.5 mg PO HS 01/07/17 01/07/17 Metoclopramide [Reglan] 10 mg PO ACHS PRN 01/07/17 01/07/17 Previous Rx's Medication Instructions Recorded Atorvastatin [Lipitor] 20 mg PO DAILY #30 tab 09/07/16 Escitalopram Oxalate [Lexapro] 10 mg PO DAILY #30 tab 09/07/16 Pantoprazole [Protonix] 40 mg PO DAILY #30 tablet. 09/07/16 Omeprazole [PriLOSEC] 20 mg PO AC-BRKFST #14 cap 01/07/17 Ondansetron Odt [Zofran Odt] 4 mg PO Q8HR PRN #10 tab 01/07/17 Allergies Allergy/AdvReac Type Severity Reaction Status Date / Time No Known Allergies Allergy Verified 01/07/17 19:02 Review of Systems ROS Statement: Those systems with pertinent positive or pertinent negative responses have been documented in the HPI. ROS Other: All systems not noted in ROS Statement are negative. Past Medical History Past Medical History: Asthma, Diabetes Mellitus, GERD/Reflux Additional Past Medical History / Comment(s): Other HX: IDDM type I History of Any Multi-Drug Resistant Organisms: None Reported Past Surgical History: Cholecystectomy Past Anesthesia/Blood Transfusion Reactions: Postoperative Nausea & Vomiting ( PONV) Additional Past Anesthesia/Blood Transfusion Reaction / Comment(s): Pt has never received blood. Past Psychological History: Anxiety, Depression Smoking Status: Current some day smoker Past Alcohol Use History: Occasional Past Drug Use History: Marijuana - Past Family History Father Family Medical History: Diabetes Mellitus, Hypertension Additional Family Medical History / Comment(s): type II diabetes. Mother Family Medical History: COPD Brother(s) Family Medical History: Diabetes Mellitus Additional Family Medical History / Comment(s): IDDM type I Sister(s) Family Medical History: No Reported History General Exam Limitations: no limitations General appearance: alert, in no apparent distress ENT exam: Present: normal oropharynx, mucous membranes dry Neck exam: Present: normal inspection, full ROM. Absent: tenderness, meningismus, lymphadenopathy Respiratory exam: Present: normal lung sounds bilaterally. Absent: respiratory distress, wheezes, rales, rhonchi, stridor Cardiovascular Exam: Present: normal rhythm, tachycardia, normal heart sounds. Absent: systolic murmur, diastolic murmur, rubs, gallop, clicks GI/Abdominal exam: Present: soft, normal bowel sounds. Absent: distended, tenderness, guarding, rebound, rigid Back exam: Absent: CVA tenderness (R), CVA tenderness (L) Neurological exam: Present: alert, oriented X3, CN II-XII intact Skin exam: Present: warm, dry, intact, normal color. Absent: rash Course Vital Signs 01/07/17 01/07/17 18:50 20:00 Temperature 97.5 F L Pulse Rate 124 H 89 Respiratory 20 18 Rate Blood Pressure 130/91 135/69 O2 Sat by Pulse 97 97 Oximetry Medical Decision Making - Medical Decision Making 26-year-old male present emergency department for nausea vomiting. Patient states his feeling improved after Zofran and IV fluids. Patient does have mild hyperglycemia no evidence DKA. Patient we discharged with Zofran patient will follow-up with his primary care physician return parameters were discussed. - Lab Data Result diagrams: 01/07/17 19:00 01/07/17 19:00 Lab Results 01/07/17 01/07/17 Range/Units 19:00 19:00 WBC 6.5 (3.8-10.6) k/uL RBC 5.53 (4.30-5.90) m/uL Hgb 16.7 (13.0-17.5) gm/dL Hct 45.6 (39.0-53.0) % MCV 82.6 (80.0-100.0) fL MCH 30.1 (25.0-35.0) pg MCHC 36.5 (31.0-37.0) g/dL RDW 13.3 (11.5-15.5) % Plt Count 284 (150-450) k/uL Neutrophils % 77 % Lymphocytes % 17 % Monocytes % 3 % Eosinophils % 1 % Basophils % 1 % Neutrophils # 5.0 (1.3-7.7) k/uL Lymphocytes # 1.1 (1.0-4.8) k/uL Monocytes # 0.2 (0-1.0) k/uL Eosinophils # 0.1 (0-0.7) k/uL Basophils # 0.0 (0-0.2) k/uL Hyperchromasia Slight Sodium 137 (137-145) mmol/L Potassium 4.4 (3.5-5.1) mmol/L Chloride 98 (98-107) mmol/L Carbon Dioxide 25 (22-30) mmol/L Anion Gap 14 mmol/L BUN 14 (9-20) mg/dL Creatinine 0.65 L (0.66-1.25) mg/dL Est GFR (MDRD) Af Amer >60 (>60 ml/min/1.73 sqM) Est GFR (MDRD) Non-Af >60 (>60 ml/min/1.73 sqM) Glucose 285 H (74-99) mg/dL Calcium 10.0 (8.4-10.2) mg/dL Total Bilirubin 1.2 (0.2-1.3) mg/dL AST 20 (17-59) U/L ALT 30 (21-72) U/L Alkaline Phosphatase 67 (38-126) U/L Total Protein 7.6 (6.3-8.2) g/dL Albumin 5.0 (3.5-5.0) g/dL Amylase 32 (30-110) U/L Lipase 28 (23-300) U/L Acetone, Qual Negative (Negative) Disposition Clinical Impression: Hyperglycemia, Nausea & vomiting Disposition: HOME SELF-CARE Condition: Stable Instructions: Acute Nausea and Vomiting (ED) Additional Instructions: Please return to the Emergency Department if symptoms worsen or any other concerns. Prescriptions: Omeprazole [PriLOSEC] 20 mg PO AC-BRKFST #14 cap Ondansetron Odt [Zofran Odt] 4 mg PO Q8HR PRN #10 tab PRN Reason: Nausea Referrals: Brett Miller MD [Primary Care Provider] - 1-2 days Time of Disposition: 20:28
[2017-01-07 19:13] LABS: Basophils % (A) 1 %; CH 30.9; CHCM 37.6; Eosinophils # (A) 0.1 k/uL (0-0.7); Eosinophils % (A) 1 %; HCT 45.6 % (39.0-53.0); HDW 3.27; HGB 16.7 gm/dL (13.0-17.5); Hyperchromasia Slight; Luc # (Auto) 0.07; Luc % (Auto) 1; Lymphocytes # (A) 1.1 k/uL (1.0-4.8); Lymphocytes % (A) 17 %; MCH 30.1 pg (25.0-35.0); MCHC 36.5 g/dL (31.0-37.0); MCV 82.6 fL (80.0-100.0); Mean Platelet Volume 7.3; Monocytes # (A) 0.2 k/uL (0-1.0); Monocytes % (A) 3 %; Neutrophils % (A) 77 %; RBC 5.53 m/uL (4.30-5.90); RDW 13.3 % (11.5-15.5); WBC 6.5 k/uL (3.8-10.6); WBC (Perox) 5.88
[2017-01-07 19:30] LABS: ALT 30 U/L (21-72); AST 20 U/L (17-59); Alkaline Phosphatase 67 U/L (38-126); Amylase 32 U/L (30-110); Anion Gap 14 mmol/L; Blood Urea Nitrogen 14 mg/dL (9-20); Carbon Dioxide 25 mmol/L (22-30); Chloride 98 mmol/L (98-107); Glucose 285 mg/dL (74-99); Non-African American GFR(MDRD) >60 (>60 ml/min/1.73 sqM); Potassium 4.4 mmol/L (3.5-5.1); Sodium 137 mmol/L (137-145); Total Bilirubin 1.2 mg/dL (0.2-1.3); Total Protein 7.6 g/dL (6.3-8.2)
[2017-01-07] MEDS ORDERED: INSULIN LISPRO (humaLOG) 300 UNIT/3 ML VIAL SQ ONE (19:49)
[2017-01-07 20:02] VITALS: RESP 18
[2017-01-07 20:31] LABS: Glucose,Whole Blood 226 mg/dL (75-99)
[2017-01-07 20:40] LABS: Appearance,Urine Clear (Clear); Bacteria,Urine Rare /hpf; Bilirubin,Urine Negative (Negative); Glucose,Urine (UA) 4+ (Negative); Leukocyte Esterase,Urine Negative (Negative); Mucus,Urine Many /hpf; Nitrite,Urine Negative (Negative); PH, Urine 6.5 (5.0-8.0); Particle Count 4194; Protein,Urine 1+ (Negative); RBC,Urine 1 /hpf (0-5); Specific Gravity,Urine 1.023 (1.001-1.035); UA Billing (MACRO vs. MICRO) MICRO; WBC,Urine 1 /hpf (0-5)
[2017-01-07 20:45] LABS: Ketones,Urine 2+ (Negative)
[2017-01-07 21:14] VITALS: BP 125/70; PULSE 69; TEMP 98.5
== END 2017-01-07 21:14 | disposition home or self-care (01) ==
LOC: EC 18:48
DX: E10.65 Type 1 diabetes mellitus with hyperglycemia (principal); R11.2 Nausea with vomiting, unspecified; F17.200 Nicotine dependence, unspecified, uncomplicated; Z79.4 Long term (current) use of insulin; Z79.82 Long term (current) use of aspirin; Z79.899 Other long term (current) drug therapy
CPT/HCPCS: 36415; 80053; 82150; 82009; 83690; 85025; 81001; 99284; 96374; 96361 ×2; J2405

== ENCOUNTER 2017-01-19 20:22 | Emergency (ER) | payer OTHER ==
--- NOTE | 2017-01-19 21:36 | US ---
EXAMINATION TYPE: US scrotum with doppler. Grayscale and color Doppler Duplex imaging performed of t solange scrotum. DATE OF EXAM: 01/19/2017 COMPARISON: NONE CLINICAL HISTORY: testicular discomfort. EXAM MEASUREMENTS: TESTICLES: Right Testicle: 4.3 x 2.2 x 3.0 cm Left Testicle: 4.0 x 2.4 x 3.3 cm EPIDIDYMIS HEAD: Right Epididymis: 1.1 cm Left Epididymis: 1.3 cm Doppler performed to assess for testicular vascularity; good bilateral color flow and waveforms are s een. There is no evidence of testicular torsion. Presence of hydroceles: no Presence of varicoceles: no IMPRESSION: Normal exam. No evidence of testicular torsion or mass.
--- NOTE | 2017-01-19 22:05 | ED ---
General Adult HPI - General Chief complaint: Urogenital Stated complaint: Male Time Seen by Provider: 01/19/17 20:31 Source: patient, RN notes reviewed, old records reviewed Mode of arrival: ambulatory Limitations: no limitations - History of Present Illness Initial comments: Chief complaint and history of present illness 26-year-old male here with several complaints one still with mild irritation to the meatus of his penis and the area around the head of the penis. He has been on nystatin cream and he 'll be advised to continue using the cream. In between after washing to dry well and apply powder. Also complains discomfort discomfort to his testicles when sitting. - Related Data Home Medications Medication Instructions Recorded Confirmed Insulin Aspart [NovoLOG] See Protocol SQ TID-W/MEALS 10/30/15 01/19/17 Insulin Glargine [Lantus] 28 unit SQ HS 12/22/16 01/19/17 Lisinopril [Zestril] 2.5 mg PO HS 01/07/17 01/19/17 Metoclopramide [Reglan] 10 mg PO ACHS PRN 01/07/17 01/19/17 Previous Rx's Medication Instructions Recorded Pantoprazole [Protonix] 40 mg PO DAILY #30 tablet. 09/07/16 Ondansetron Odt [Zofran Odt] 4 mg PO Q8HR PRN #10 tab 01/07/17 Allergies Allergy/AdvReac Type Severity Reaction Status Date / Time No Known Allergies Allergy Verified 01/19/17 20:27 Review of Systems ROS Statement: Those systems with pertinent positive or pertinent negative responses have been documented in the HPI. review of systems. No headache or chest pain or shortness of breath. The patient has chronic problems with his stomach. He states he's tried medications for stomach such as Pepcid etc. but marijuana health past. We did discuss side effect of marijuana causing gastric problems with chronic use especially with people have problems with diabetes and chronic vomiting syndrome. All systems reviewed past medical problemsAsthma, insulin-dependent diabetes mellitus, GERD, surgeries or second. Family history heart disease. Patient denies ALLERGIES. He does smoke marijuana see above note. Denies alcohol use. ROS Other: All systems not noted in ROS Statement are negative. Past Medical History Past Medical History: Asthma, Diabetes Mellitus, GERD/Reflux Additional Past Medical History / Comment(s): Other HX: IDDM type I History of Any Multi-Drug Resistant Organisms: None Reported Past Surgical History: Cholecystectomy Past Anesthesia/Blood Transfusion Reactions: Postoperative Nausea & Vomiting ( PONV) Additional Past Anesthesia/Blood Transfusion Reaction / Comment(s): Pt has never received blood. Past Psychological History: Anxiety, Depression Smoking Status: Current every day smoker Past Alcohol Use History: None Reported Past Drug Use History: Marijuana - Past Family History Father Family Medical History: Diabetes Mellitus, Hypertension Additional Family Medical History / Comment(s): type II diabetes. Mother Family Medical History: COPD Brother(s) Family Medical History: Diabetes Mellitus Additional Family Medical History / Comment(s): IDDM type I Sister(s) Family Medical History: No Reported History General Exam - General Exam Comments Initial Comments: General: The patient is awake and alert, complaints of testicular discomfort. Vital signs show temperature 98.8 pulse 119 respiratory rate 18 pulse ox 99% room air blood pressure 124/76. Heart rate came down during examination. no complaints of chest pain or shortness of breath. No palpitations. Gastrointestinal: patient has GERD and uses marijuana to relax his stomach. Back: no back pain. urologic exam, patient is circumcised. Small amount of irritation at the meatus of the penis and just under the glans. In this area the patient will continue using Mycostatin provided on her previous visit. Normal prostatic reflex. Minimal discomfort with manipulation of the testes. The patient will be advised to wear snug are fitting underwear and follow with family physician and urology for persistent complaints. Normal ROM, no tenderness, There is no pedal edema. There is no calf tenderness or swelling. Sensation intact. Neurological: history of chronic vomiting syndrome with diabetes. Skin: Skin is warm and dry and no rashes or lesions are noted. Psychiatric: Cooperative, appropriate mood & affect, normal judgment. Limitations: no limitations Course Vital Signs 01/19/17 20:25 Temperature 98.8 F Pulse Rate 119 H Respiratory 18 Rate Blood Pressure 124/76 O2 Sat by Pulse 99 Oximetry Medical Decision Making - Medical Decision Making medical decision-making. The patient had ultrasound of the scrotum and reviewed by radiologist his report is no evidence of any torsion, no hydroceles no varicoceles. As read by Dr. Jackson. We discussed how the patient is to clean daily apply Mycostatin which she has already. Wear snug fitting underwear discomfort the testes and he'll be given a follow-up referral to urology. Disposition Clinical Impression: Testicular discomfort Disposition: HOME SELF-CARE Condition: Fair Instructions: Testicle Pain (ED) Additional Instructions: Wash as directed, apply Mycostatin cream as directed. Wear snug or sitting underwear. Follow-up family physician and urology. Referrals: Brett Miller MD [Primary Care Provider] - 1-2 days Mitchell Ha MD [STAFF PHYSICIAN] - 1-2 days Time of Disposition: 22:05
[2017-01-19 22:18] VITALS: BP 136/74; PULSE 96; RESP 20; TEMP 97.8
== END 2017-01-19 22:14 | disposition home or self-care (01) ==
LOC: EC 20:22
DX: N50.819 Testicular pain, unspecified (principal); E10.9 Type 1 diabetes mellitus without complications; K21.9 Gastro-esophageal reflux disease without esophagitis; F17.200 Nicotine dependence, unspecified, uncomplicated; Z79.4 Long term (current) use of insulin; Z79.899 Other long term (current) drug therapy
CPT/HCPCS: 76870; 93975; 99284

== ENCOUNTER → 2017-01-28 | Outpatient (CLI) | payer OTHER ==
[2017-01-28 16:34] LABS: Blood Urea Nitrogen 13 mg/dL (9-20); Non-African American GFR(MDRD) >60 (>60 ml/min/1.73 sqM)
--- NOTE | 2017-01-28 18:16 | CT ---
EXAMINATION TYPE: CT abdomen pelvis w con DATE OF EXAM: 01/28/2017 COMPARISON: 08/15/2012 HISTORY: Abdominal pain and vomiting x2 years that is woresening. CT DLP: 742 mGycm Automated exposure control for dose reduction was used. TECHNIQUE: Helical acquisition of images was performed from the lung bases through the pelvis. CONTRAST: Performed with Oral Contrast and with IV Contrast, patient injected with 100 mL of Omnipaque 300. FINDINGS: Lung bases are clear of consolidation. There is no pleural effusion. Heart size is normal. There are clips from cholecystectomy. Bile ducts are not dilated. Liver spleen pancreas appear normal . There is no adrenal mass. Kidneys show satisfactory contrast opacification. There is no hydronephrosi s. I see no evidence of a bowel obstruction. I see no intestinal wall thickening. There are no dilate d loops. Bladder distends smoothly. There is no ascites. There is no sign of free air. There is no re troperitoneal adenopathy. I see no bony destructive process. Appendix is not definitely seen. There i s no sign of appendicitis. IMPRESSION: NEGATIVE CT SCAN OF THE ABDOMEN AND PELVIS. THERE IS CLEARING OF THE ASCITES FLUID COMPARED TO OLD EX AM. THERE IS CLEARING OF BASILAR PULMONARY INFILTRATES.
== END ==
LOC: RADCTMAIN 15:57
PROVIDERS: ATTEND Surgery
DX: R10.9 Unspecified abdominal pain (principal)
CPT/HCPCS: 82565; 84520; 74177; 36415; Q9967

== ENCOUNTER 2017-10-14 11:59 | Emergency (ER) | payer OTHER ==
[2017-10-14] MEDS ORDERED: SODIUM CHLORIDE 0.9% 1,000 ML IV STA (12:21)
[2017-10-14] MEDS ORDERED: FAMOTIDINE 20 MG/2 ML VIAL IV STA (12:21)
[2017-10-14] MEDS ORDERED: ONDANSETRON 4 MG/2 ML VIAL IVP STA (12:21)
--- NOTE | 2017-10-14 12:25 | ED ---
General Adult HPI - General Chief complaint: Nausea/Vomiting/Diarrhea Stated complaint: vomiting/diabetic Time Seen by Provider: 10/14/17 12:17 Source: patient, RN notes reviewed Mode of arrival: ambulatory Limitations: no limitations - History of Present Illness Initial comments: Patient 27-year-old male significant past medical history for diabetes, presenting to the emergency room today with chief complaint of symptoms of nausea vomiting that started earlier today. Patient states he usually has symptoms similar to this where he has increased stomach acid past vomiting and feels fine. He states today she's had multiple episodes have a difficult time keeping anything down. Patient denies any other complaints or associated symptoms. Patient denies any recent fever, chills, shortness of breath, chest pain, back pain, numbness or tingling, dysuria or hematuria, constipation or diarrhea, headaches or visual changes, or any other complaints. - Related Data Home Medications Medication Instructions Recorded Confirmed Insulin Aspart [NovoLOG See Protocol SQ TID-W/MEALS 10/30/15 01/19/17 (formulary)] Insulin Glargine [Lantus] 28 unit SQ HS 12/22/16 01/19/17 Lisinopril [Zestril] 2.5 mg PO HS 01/07/17 01/19/17 Metoclopramide [Reglan] 10 mg PO ACHS PRN 01/07/17 01/19/17 Previous Rx's Medication Instructions Recorded Pantoprazole [Protonix] 40 mg PO DAILY #30 tablet. 09/07/16 Ondansetron Odt [Zofran Odt] 4 mg PO Q8HR PRN #10 tab 01/07/17 Ondansetron Odt [Zofran ODT] 4 mg PO Q8HR PRN #20 tab 10/14/17 Allergies Allergy/AdvReac Type Severity Reaction Status Date / Time No Known Allergies Allergy Verified 10/14/17 12:08 Review of Systems ROS Statement: Those systems with pertinent positive or pertinent negative responses have been documented in the HPI. ROS Other: All systems not noted in ROS Statement are negative. Past Medical History Past Medical History: Asthma, Diabetes Mellitus, GERD/Reflux Additional Past Medical History / Comment(s): Other HX: IDDM type I History of Any Multi-Drug Resistant Organisms: None Reported Past Surgical History: Cholecystectomy Past Anesthesia/Blood Transfusion Reactions: Postoperative Nausea & Vomiting ( PONV) Additional Past Anesthesia/Blood Transfusion Reaction / Comment(s): Pt has never received blood. Past Psychological History: Anxiety, Depression Smoking Status: Current every day smoker Past Alcohol Use History: None Reported Past Drug Use History: Marijuana - Past Family History Father Family Medical History: Diabetes Mellitus, Hypertension Additional Family Medical History / Comment(s): type II diabetes. Mother Family Medical History: COPD Brother(s) Family Medical History: Diabetes Mellitus Additional Family Medical History / Comment(s): IDDM type I Sister(s) Family Medical History: No Reported History General Exam - General Exam Comments Initial Comments: General: The patient is awake and alert, in no distress, and does not appear acutely ill. Eye: Pupils are equal, round and reactive to light, extra-ocular movements are intact. No nystagmus. There is normal conjunctiva bilaterally. No signs of icterus. Ears, nose, mouth and throat: There are moist mucous membranes and no oral lesions. Neck: The neck is supple, there is no tenderness or JVD. Cardiovascular: There is a regular rate and rhythm. No murmur, rub or gallop is appreciated. Respiratory: Lungs are clear to auscultation, respirations are non-labored, breath sounds are equal. No wheezes, stridor, rales, or rhonchi. Gastrointestinal: Normal appearance abdomen. Normal bowel sounds. Abdomen soft on palpation. Mild tenderness epigastric. No rebound tenderness. No guarding. No CVA tenderness. Musculoskeletal: Normal ROM, no tenderness. Strength 5/5. Sensation intact. Pulses equal bilaterally 2+. Neurological: A&O x 3. CN II-XII intact, There are no obvious motor or sensory deficits. Coordination appears grossly intact. Speech is normal. Skin: Skin is warm and dry and no rashes or lesions are noted. Psychiatric: Cooperative, appropriate mood & affect, normal judgment. Limitations: no limitations Course Vital Signs 10/14/17 12:08 Temperature 97.5 F L Pulse Rate 90 Respiratory 20 Rate Blood Pressure 130/76 O2 Sat by Pulse 98 Oximetry Medical Decision Making - Medical Decision Making Patient reexamined at this time shows signs of distress. Patient's blood sugar 300 here the emergency room had not taken his insulin today. Acetone negative. Feeling much better after IV fluids and nausea medication.Please use medication as discussed. Please follow-up with family doctor in the next 2 days of symptoms have not improved. Please return to emergency room if the symptoms increase or worsen or for any other concerns. Will be given insulin discharged home with nausea medication for his symptoms. Otherwise follow-up family physician return here to the emergency room symptoms increase worsen. - Lab Data Result diagrams: 10/14/17 12:36 10/14/17 12:36 Lab Results 10/14/17 10/14/17 10/14/17 Range/Units 12:36 12:36 12:36 WBC 9.7 (3.8-10.6) k/uL RBC 5.35 (4.30-5.90) m/uL Hgb 16.4 (13.0-17.5) gm/dL Hct 46.1 (39.0-53.0) % MCV 86.2 (80.0-100.0) fL MCH 30.7 (25.0-35.0) pg MCHC 35.6 (31.0-37.0) g/dL RDW 13.0 (11.5-15.5) % Plt Count 238 (150-450) k/uL Neutrophils % 79 % Lymphocytes % 12 % Monocytes % 3 % Eosinophils % 4 % Basophils % 1 % Neutrophils # 7.7 (1.3-7.7) k/uL Lymphocytes # 1.1 (1.0-4.8) k/uL Monocytes # 0.3 (0-1.0) k/uL Eosinophils # 0.4 (0-0.7) k/uL Basophils # 0.1 (0-0.2) k/uL Sodium 139 (137-145) mmol/L Potassium 5.0 (3.5-5.1) mmol/L Chloride 98 (98-107) mmol/L Carbon Dioxide 30 (22-30) mmol/L Anion Gap 11 mmol/L BUN 16 (9-20) mg/dL Creatinine 0.85 (0.66-1.25) mg/dL Est GFR (CKD-EPI)AfAm >90 (>60 ml/min/1.73 sqM) Est GFR (CKD-EPI)NonAf >90 (>60 ml/min/1.73 sqM) Glucose 300 H (74-99) mg/dL Calcium 9.9 (8.4-10.2) mg/dL Total Bilirubin 0.5 (0.2-1.3) mg/dL AST 24 (17-59) U/L ALT 37 (21-72) U/L Alkaline Phosphatase 97 (38-126) U/L Total Protein 7.5 (6.3-8.2) g/dL Albumin 4.7 (3.5-5.0) g/dL Amylase 44 (30-110) U/L Lipase 39 (23-300) U/L Urine Color Yellow Urine Appearance Clear (Clear) Urine pH 6.5 (5.0-8.0) Ur Specific [place] 1.020 (1.001-1.035) Urine Protein Negative (Negative) Urine Glucose (UA) 4+ H (Negative) Urine Ketones Negative (Negative) Urine Blood Negative (Negative) Urine Nitrite Negative (Negative) Urine Bilirubin Negative (Negative) Urine Urobilinogen 2.0 (<2.0) mg/dL Ur Leukocyte Esterase Negative (Negative) Acetone, Qual Negative (Negative) Disposition Clinical Impression: Nausea & vomiting, Diabetes mellitus type 1 Disposition: HOME SELF-CARE Condition: Good Instructions: Acute Nausea and Vomiting (ED) Additional Instructions: Please use medication as discussed. Please follow-up with family doctor in the next 2 days of symptoms have not improved. Please return to emergency room if the symptoms increase or worsen or for any other concerns. Prescriptions: Ondansetron Odt [Zofran ODT] 4 mg PO Q8HR PRN #20 tab PRN Reason: Nausea Referrals: Brett Miller MD [Primary Care Provider] - 1-2 days Time of Disposition: 13:30
[2017-10-14 12:47] LABS: Appearance,Urine Clear (Clear); Bilirubin,Urine Negative (Negative); Blood,Urine Negative (Negative); Color,Urine Yellow; Glucose,Urine (UA) 4+ (Negative); Ketones,Urine Negative (Negative); Leukocyte Esterase,Urine Negative (Negative); Nitrite,Urine Negative (Negative); PH, Urine 6.5 (5.0-8.0); Protein,Urine Negative (Negative)
[2017-10-14 12:48] LABS: Basophils # (A) 0.1 k/uL (0-0.2); Basophils % (A) 1 %; Eosinophils # (A) 0.4 k/uL (0-0.7); Eosinophils % (A) 4 %; HCT 46.1 % (39.0-53.0); HGB 16.4 gm/dL (13.0-17.5); Lymphocytes # (A) 1.1 k/uL (1.0-4.8); Lymphocytes % (A) 12 %; MCH 30.7 pg (25.0-35.0); MCHC 35.6 g/dL (31.0-37.0); MCV 86.2 fL (80.0-100.0); Mean Platelet Volume 7.1; Monocytes # (A) 0.3 k/uL (0-1.0); Monocytes % (A) 3 %; Neutrophils # (A) 7.7 k/uL (1.3-7.7); Neutrophils % (A) 79 %; Platelet Count 238 k/uL (150-450); RBC 5.35 m/uL (4.30-5.90); WBC 9.7 k/uL (3.8-10.6)
[2017-10-14 12:56] LABS: ALT 37 U/L (21-72); AST 24 U/L (17-59); Albumin 4.7 g/dL (3.5-5.0); Alkaline Phosphatase 97 U/L (38-126); Amylase 44 U/L (30-110); Anion Gap 11 mmol/L; Blood Urea Nitrogen 16 mg/dL (9-20); Calcium 9.9 mg/dL (8.4-10.2); Carbon Dioxide 30 mmol/L (22-30); Chloride 98 mmol/L (98-107); Glucose 300 mg/dL (74-99); Lipase 39 U/L (23-300); Sodium 139 mmol/L (137-145); Total Bilirubin 0.5 mg/dL (0.2-1.3); Total Protein 7.5 g/dL (6.3-8.2)
[2017-10-14] MEDS ORDERED: INSULIN ASPART 100 UNIT/ML 1 ML 10 ML VIAL SQ ONE (13:28)
[2017-10-14 13:29] LABS: Glucose,Whole Blood 270 mg/dL (75-99)
[2017-10-14 13:58] VITALS: BP 121/69; PULSE 71; RESP 18; TEMP 98.4
== END 2017-10-14 13:57 | disposition home or self-care (01) ==
LOC: EC 11:59
DX: R11.2 Nausea with vomiting, unspecified (principal); R10.13 Epigastric pain; E10.9 Type 1 diabetes mellitus without complications; F17.200 Nicotine dependence, unspecified, uncomplicated; Z90.49 Acquired absence of other specified parts of digestive tract; Z79.4 Long term (current) use of insulin; Z79.899 Other long term (current) drug therapy
CPT/HCPCS: 99284; 96374; 96375; 96361; 36415; 80053; 82150; 82009; 83690; 85025; 81003; J2405

== ENCOUNTER 2017-12-19 14:31 | Emergency (ER) | payer OTHER ==
[2017-12-19] MEDS ORDERED: SODIUM CHLORIDE 0.9% 1,000 ML IV ONE (14:38)
[2017-12-19 14:39] LABS: Glucose,Whole Blood 116 mg/dL (75-99)
--- NOTE | 2017-12-19 14:50 | ED ---
General Adult HPI - General Chief complaint: Recheck/Abnormal Lab/Rx Stated complaint: Hyperglycemic Time Seen by Provider: 12/19/17 14:37 Source: patient Mode of arrival: ambulatory Limitations: no limitations - History of Present Illness Initial comments: Patient is a 27-year-old male is type I diabetic presenting for nausea and vomiting as well as elevated blood sugar. He states that for last week or so, he has been having difficulty keeping his blood sugar in the normal ranges range from approximately 100 400. He is also having trouble keeping fluids down because he is having continuous nausea and he often vomits after eating. He denies any fevers, chills, abdominal pain, diarrhea and states that he has had no other symptoms may have taking has other infection. He also is on a sliding scale where he takes 20 units of Lantus nightly and sliding scale NovoLog. He also admits to increased urination. - Related Data Home Medications Medication Instructions Recorded Confirmed Insulin Aspart [NovoLOG See Protocol SQ TID-W/MEALS 10/30/15 12/19/17 (formulary)] Insulin Glargine [Lantus] 28 unit SQ DAILY@0000 12/22/16 12/19/17 Albuterol Sulfate [Proair Hfa] 1 - 2 puff INHALATION RT-Q6H PRN 12/19/17 Previous Rx's Medication Instructions Recorded Ondansetron Odt [Zofran Odt] 4 mg PO Q8HR PRN #15 tab 12/19/17 Allergies Allergy/AdvReac Type Severity Reaction Status Date / Time No Known Allergies Allergy Verified 12/19/17 14:46 Review of Systems ROS Statement: Those systems with pertinent positive or pertinent negative responses have been documented in the HPI. Constitutional: Negative for chills, fatigue and fever. HENT: Negative for congestion. Respiratory: Negative for chest tightness, shortness of breath and wheezing. Negative for cough Cardiovascular: Negative for chest pain and palpitations. Gastrointestinal: Negative for abdominal pain. Negative for abdominal distention , diarrhea, positive for nausea and vomiting. Genitourinary: Negative for dysuria. Positive for polyuria Musculoskeletal: Negative for back pain, neck pain and neck stiffness. Skin: Negative for color change. Neurological: Negative for dizziness, speech difficulty, weakness and light- headedness. Psychiatric/Behavioral: Negative for agitation and confusion. The patient is not nervous/anxious. ROS Other: All systems not noted in ROS Statement are negative. Past Medical History Past Medical History: Asthma, Diabetes Mellitus, GERD/Reflux Additional Past Medical History / Comment(s): Other HX: IDDM type I History of Any Multi-Drug Resistant Organisms: None Reported Past Surgical History: Cholecystectomy Past Anesthesia/Blood Transfusion Reactions: Postoperative Nausea & Vomiting ( PONV) Additional Past Anesthesia/Blood Transfusion Reaction / Comment(s): Pt has never received blood. Past Psychological History: Anxiety, Depression Smoking Status: Current every day smoker Past Alcohol Use History: None Reported Past Drug Use History: Marijuana - Past Family History Father Family Medical History: Diabetes Mellitus, Hypertension Additional Family Medical History / Comment(s): type II diabetes. Mother Family Medical History: COPD Brother(s) Family Medical History: Diabetes Mellitus Additional Family Medical History / Comment(s): IDDM type I Sister(s) Family Medical History: No Reported History General Exam - General Exam Comments Initial Comments: Constitutional: Pt is oriented to person, place, and time. Pt appears well- developed and well-nourished. No distress. HENT: Head: Normocephalic and atraumatic. Eyes: EOM are normal. Neck: Normal range of motion. Neck supple. Cardiovascular: Tachycardia, regular rhythm, S1 normal, S2 normal and normal heart sounds. Exam reveals no gallop and no friction rub. No murmur heard. Pulmonary/Chest: Effort normal and breath sounds normal. No tachypnea and no bradypnea. No respiratory distress. No wheezes or rales noted. Abdominal: Soft. Bowel sounds are normal. Pt exhibits no shifting dullness, no distension, no pulsatile liver, no fluid wave, no abdominal bruit and no ascites. There is no tenderness. There is no rigidity, no rebound, no guarding, no tenderness at McBurney's point and negative Springer's sign. Musculoskeletal: Normal range of motion. Neurological: Pt is alert and oriented to person, place, and time. No cranial nerve deficit. Skin: Skin is warm and dry. No rash noted. Pt is not diaphoretic. No erythema. No pallor. Psychiatric: Pt has a normal mood and affect. Pt behavior is normal. Thought content normal. Limitations: no limitations Course Vital Signs 12/19/17 14:33 Temperature 97.7 F Pulse Rate 115 H Respiratory 16 Rate Blood Pressure 158/93 O2 Sat by Pulse 100 Oximetry Medical Decision Making - Medical Decision Making Laboratory studies show that there is no leukocytosis and a bicarbonate level measured at 27. Glucose was also within normal limits at 117. There is no evidence of DKA as acetone was not detected and osmolality was not elevated. Patient was given fluids as well as Zofran and stated that symptoms emergent improved. Patient states that he does have a history of gastroparesis and it was advised that this could also be contributing to the symptoms. Therefore the patient was given a prescription for Zofran and noted to be resting bed comfortably in no acute distress prior to discharge.Explained all labs and diagnostic test results and that we will discharge the patient home and patient is to follow up with PCP in 1-2 days and return to the ED if symptoms worsen. Pt is agreeable to plan. - Lab Data Result diagrams: 12/19/17 15:00 12/19/17 15:00 Lab Results 12/19/17 12/19/17 12/19/17 Range/Units 14:36 15:00 15:00 WBC (3.8-10.6) k/uL RBC (4.30-5.90) m/uL Hgb (13.0-17.5) gm/dL Hct (39.0-53.0) % MCV (80.0-100.0) fL MCH (25.0-35.0) pg MCHC (31.0-37.0) g/dL RDW (11.5-15.5) % Plt Count (150-450) k/uL Neutrophils % % Lymphocytes % % Monocytes % % Eosinophils % % Basophils % % Neutrophils # (1.3-7.7) k/uL Lymphocytes # (1.0-4.8) k/uL Monocytes # (0-1.0) k/uL Eosinophils # (0-0.7) k/uL Basophils # (0-0.2) k/uL VBG pH 7.33 (7.31-7.41) VBG pCO2 56 H (37-51) mmHg VBG HCO3 28 (24-28) mmol/L Sodium 141 (137-145) mmol/L Potassium 4.4 (3.5-5.1) mmol/L Chloride 101 (98-107) mmol/L Carbon Dioxide 27 (22-30) mmol/L Anion Gap 13 mmol/L BUN 15 (9-20) mg/dL Creatinine 0.79 (0.66-1.25) mg/dL Est GFR (CKD-EPI)AfAm >90 (>60 ml/min/1.73 sqM) Est GFR (CKD-EPI)NonAf >90 (>60 ml/min/1.73 sqM) Glucose 117 H (74-99) mg/dL POC Glucose (mg/dL) 116 H (75-99) mg/dL POC Glu Rewrite Editor ID Ra Springer Osmolality 291 (280-301) mosm/kg Plasma Lactic Acid Elio (0.7-2.0) mmol/L Calcium 9.4 (8.4-10.2) mg/dL Total Bilirubin 0.9 (0.2-1.3) mg/dL AST 38 (17-59) U/L ALT 42 (21-72) U/L Alkaline Phosphatase 83 (38-126) U/L Total Protein 7.1 (6.3-8.2) g/dL Albumin 4.8 (3.5-5.0) g/dL Urine Color Urine Appearance (Clear) Urine pH (5.0-8.0) Ur Specific [place] (1.001-1.035) Urine Protein (Negative) Urine Glucose (UA) (Negative) Urine Ketones (Negative) Urine Blood (Negative) Urine Nitrite (Negative) Urine Bilirubin (Negative) Urine Urobilinogen (<2.0) mg/dL Ur Leukocyte Esterase (Negative) Acetone, Qual Negative (Negative) 12/19/17 12/19/17 12/19/17 Range/Units 15:00 15:00 15:02 WBC 6.4 (3.8-10.6) k/uL RBC 5.16 (4.30-5.90) m/uL Hgb 15.6 (13.0-17.5) gm/dL Hct 44.7 (39.0-53.0) % MCV 86.5 (80.0-100.0) fL MCH 30.2 (25.0-35.0) pg MCHC 34.9 (31.0-37.0) g/dL RDW 13.5 (11.5-15.5) % Plt Count 269 (150-450) k/uL Neutrophils % 66 % Lymphocytes % 20 % Monocytes % 5 % Eosinophils % 6 % Basophils % 1 % Neutrophils # 4.2 (1.3-7.7) k/uL Lymphocytes # 1.2 (1.0-4.8) k/uL Monocytes # 0.3 (0-1.0) k/uL Eosinophils # 0.4 (0-0.7) k/uL Basophils # 0.1 (0-0.2) k/uL VBG pH (7.31-7.41) VBG pCO2 (37-51) mmHg VBG HCO3 (24-28) mmol/L Sodium (137-145) mmol/L Potassium (3.5-5.1) mmol/L Chloride (98-107) mmol/L Carbon Dioxide (22-30) mmol/L Anion Gap mmol/L BUN (9-20) mg/dL Creatinine (0.66-1.25) mg/dL Est GFR (CKD-EPI)AfAm (>60 ml/min/1.73 sqM) Est GFR (CKD-EPI)NonAf (>60 ml/min/1.73 sqM) Glucose (74-99) mg/dL POC Glucose (mg/dL) (75-99) mg/dL POC Glu Rewrite Editor ID Osmolality (280-301) mosm/kg Plasma Lactic Acid Elio 1.1 (0.7-2.0) mmol/L Calcium (8.4-10.2) mg/dL Total Bilirubin (0.2-1.3) mg/dL AST (17-59) U/L ALT (21-72) U/L Alkaline Phosphatase (38-126) U/L Total Protein (6.3-8.2) g/dL Albumin (3.5-5.0) g/dL Urine Color Yellow Urine Appearance Clear (Clear) Urine pH 6.5 (5.0-8.0) Ur Specific [place] 1.023 (1.001-1.035) Urine Protein Trace H (Negative) Urine Glucose (UA) Negative (Negative) Urine Ketones 2+ H (Negative) Urine Blood Negative (Negative) Urine Nitrite Negative (Negative) Urine Bilirubin Negative (Negative) Urine Urobilinogen 3.0 (<2.0) mg/dL Ur Leukocyte Esterase Negative (Negative) Acetone, Qual (Negative) Disposition Clinical Impression: Nausea and vomiting, Ketonuria Disposition: HOME SELF-CARE Condition: Good Instructions: Acute Nausea and Vomiting (ED) Prescriptions: Ondansetron Odt [Zofran Odt] 4 mg PO Q8HR PRN #15 tab PRN Reason: Nausea And Vomiting Is patient prescribed a controlled substance at d/c from ED?: No Referrals: Brett Miller MD [Primary Care Provider] - 1-2 days Time of Disposition: 15:54
[2017-12-19 15:12] LABS: VBG PH 7.33 (7.31-7.41)
[2017-12-19 15:13] LABS: Basophils # (A) 0.1 k/uL (0-0.2); Basophils % (A) 1 %; Eosinophils # (A) 0.4 k/uL (0-0.7); Eosinophils % (A) 6 %; HCT 44.7 % (39.0-53.0); HGB 15.6 gm/dL (13.0-17.5); Lymphocytes # (A) 1.2 k/uL (1.0-4.8); Lymphocytes % (A) 20 %; MCH 30.2 pg (25.0-35.0); MCHC 34.9 g/dL (31.0-37.0); MCV 86.5 fL (80.0-100.0); Mean Platelet Volume 7.2; Monocytes # (A) 0.3 k/uL (0-1.0); Monocytes % (A) 5 %; Neutrophils # (A) 4.2 k/uL (1.3-7.7); Neutrophils % (A) 66 %; Platelet Count 269 k/uL (150-450); RBC 5.16 m/uL (4.30-5.90); RDW 13.5 % (11.5-15.5); WBC 6.4 k/uL (3.8-10.6)
[2017-12-19 15:14] LABS: Appearance,Urine Clear (Clear); Bilirubin,Urine Negative (Negative); Blood,Urine Negative (Negative); Color,Urine Yellow; Glucose,Urine (UA) Negative (Negative); Ketones,Urine 2+ (Negative); Leukocyte Esterase,Urine Negative (Negative); Nitrite,Urine Negative (Negative); PH, Urine 6.5 (5.0-8.0); Protein,Urine Trace (Negative); Specific Gravity,Urine 1.023 (1.001-1.035)
[2017-12-19 15:24] LABS: ALT 42 U/L (21-72); AST 38 U/L (17-59); Albumin 4.8 g/dL (3.5-5.0); Alkaline Phosphatase 83 U/L (38-126); Anion Gap 13 mmol/L; Blood Urea Nitrogen 15 mg/dL (9-20); Calcium 9.4 mg/dL (8.4-10.2); Carbon Dioxide 27 mmol/L (22-30); Chloride 101 mmol/L (98-107); Glucose 117 mg/dL (74-99); Potassium 4.4 mmol/L (3.5-5.1); Sodium 141 mmol/L (137-145); Total Bilirubin 0.9 mg/dL (0.2-1.3); Total Protein 7.1 g/dL (6.3-8.2)
[2017-12-19] MEDS ORDERED: ONDANSETRON 4 MG/2 ML VIAL IVP STA (15:42)
[2017-12-19 16:00] VITALS: BP 154/70; PULSE 83; RESP 18; TEMP 98
--- NOTE | 2017-12-19 16:00 | ED ---
Medical Decision Making - Lab Data Result diagrams: 12/19/17 15:00 12/19/17 15:00 Lab Results 12/19/17 12/19/17 12/19/17 Range/Units 14:36 15:00 15:00 WBC (3.8-10.6) k/uL RBC (4.30-5.90) m/uL Hgb (13.0-17.5) gm/dL Hct (39.0-53.0) % MCV (80.0-100.0) fL MCH (25.0-35.0) pg MCHC (31.0-37.0) g/dL RDW (11.5-15.5) % Plt Count (150-450) k/uL Neutrophils % % Lymphocytes % % Monocytes % % Eosinophils % % Basophils % % Neutrophils # (1.3-7.7) k/uL Lymphocytes # (1.0-4.8) k/uL Monocytes # (0-1.0) k/uL Eosinophils # (0-0.7) k/uL Basophils # (0-0.2) k/uL VBG pH 7.33 (7.31-7.41) VBG pCO2 56 H (37-51) mmHg VBG HCO3 28 (24-28) mmol/L Sodium 141 (137-145) mmol/L Potassium 4.4 (3.5-5.1) mmol/L Chloride 101 (98-107) mmol/L Carbon Dioxide 27 (22-30) mmol/L Anion Gap 13 mmol/L BUN 15 (9-20) mg/dL Creatinine 0.79 (0.66-1.25) mg/dL Est GFR (CKD-EPI)AfAm >90 (>60 ml/min/1.73 sqM) Est GFR (CKD-EPI)NonAf >90 (>60 ml/min/1.73 sqM) Glucose 117 H (74-99) mg/dL POC Glucose (mg/dL) 116 H (75-99) mg/dL POC Glu Director Title ID Ra Springer Osmolality 291 ([phone]) mosm/kg Plasma Lactic Acid Elio (0.7-2.0) mmol/L Calcium 9.4 (8.4-10.2) mg/dL Total Bilirubin 0.9 (0.2-1.3) mg/dL AST 38 (17-59) U/L ALT 42 (21-72) U/L Alkaline Phosphatase 83 (38-126) U/L Total Protein 7.1 (6.3-8.2) g/dL Albumin 4.8 (3.5-5.0) g/dL Urine Color Urine Appearance (Clear) Urine pH (5.0-8.0) Ur Specific Equality (1.001-1.035) Urine Protein (Negative) Urine Glucose (UA) (Negative) Urine Ketones (Negative) Urine Blood (Negative) Urine Nitrite (Negative) Urine Bilirubin (Negative) Urine Urobilinogen (<2.0) mg/dL Ur Leukocyte Esterase (Negative) Acetone, Qual Negative (Negative) 12/19/17 12/19/17 12/19/17 Range/Units 15:00 15:00 15:02 WBC 6.4 (3.8-10.6) k/uL RBC 5.16 (4.30-5.90) m/uL Hgb 15.6 (13.0-17.5) gm/dL Hct 44.7 (39.0-53.0) % MCV 86.5 (80.0-100.0) fL MCH 30.2 (25.0-35.0) pg MCHC 34.9 (31.0-37.0) g/dL RDW 13.5 (11.5-15.5) % Plt Count 269 (150-450) k/uL Neutrophils % 66 % Lymphocytes % 20 % Monocytes % 5 % Eosinophils % 6 % Basophils % 1 % Neutrophils # 4.2 (1.3-7.7) k/uL Lymphocytes # 1.2 (1.0-4.8) k/uL Monocytes # 0.3 (0-1.0) k/uL Eosinophils # 0.4 (0-0.7) k/uL Basophils # 0.1 (0-0.2) k/uL VBG pH (7.31-7.41) VBG pCO2 (37-51) mmHg VBG HCO3 (24-28) mmol/L Sodium (137-145) mmol/L Potassium (3.5-5.1) mmol/L Chloride (98-107) mmol/L Carbon Dioxide (22-30) mmol/L Anion Gap mmol/L BUN (9-20) mg/dL Creatinine (0.66-1.25) mg/dL Est GFR (CKD-EPI)AfAm (>60 ml/min/1.73 sqM) Est GFR (CKD-EPI)NonAf (>60 ml/min/1.73 sqM) Glucose (74-99) mg/dL POC Glucose (mg/dL) (75-99) mg/dL POC Glu Director Title ID Osmolality ([phone]) mosm/kg Plasma Lactic Acid Elio 1.1 (0.7-2.0) mmol/L Calcium (8.4-10.2) mg/dL Total Bilirubin (0.2-1.3) mg/dL AST (17-59) U/L ALT (21-72) U/L Alkaline Phosphatase (38-126) U/L Total Protein (6.3-8.2) g/dL Albumin (3.5-5.0) g/dL Urine Color Yellow Urine Appearance Clear (Clear) Urine pH 6.5 (5.0-8.0) Ur Specific [place] 1.023 (1.001-1.035) Urine Protein Trace H (Negative) Urine Glucose (UA) Negative (Negative) Urine Ketones 2+ H (Negative) Urine Blood Negative (Negative) Urine Nitrite Negative (Negative) Urine Bilirubin Negative (Negative) Urine Urobilinogen 3.0 (<2.0) mg/dL Ur Leukocyte Esterase Negative (Negative) Acetone, Qual (Negative) Disposition Clinical Impression: Nausea and vomiting, Ketonuria Disposition: HOME SELF-CARE Condition: Good Instructions: Acute Nausea and Vomiting (ED) Prescriptions: Ondansetron Odt [Zofran Odt] 4 mg PO Q8HR PRN #15 tab PRN Reason: Nausea And Vomiting Is patient prescribed a controlled substance at d/c from ED?: No Referrals: Brett Miller MD [Primary Care Provider] - 1-2 days Melinda Hayes MD [STAFF PHYSICIAN] - 1-2 days Time of Disposition: 15:59
[2017-12-19] MEDS ORDERED: ONDANSETRON ODT 4 MG TAB PO STA (16:02)
== END 2017-12-19 16:10 | disposition home or self-care (01) ==
LOC: EC 14:31
DX: R11.2 Nausea with vomiting, unspecified (principal); R82.4 Acetonuria; R00.0 Tachycardia, unspecified; E10.43 Type 1 diabetes mellitus with diabetic autonomic (poly)neuropathy; K31.84 Gastroparesis; J45.909 Unspecified asthma, uncomplicated; F17.200 Nicotine dependence, unspecified, uncomplicated; Z79.4 Long term (current) use of insulin; Z83.3 Family history of diabetes mellitus; Z82.49 Family history of ischemic heart disease and other diseases of the circulatory system; Z53.8 Procedure and treatment not carried out for other reasons
CPT/HCPCS: 36415; 80053; 81003; 82009; 82803; 83605; 83930; 85025; 99284

== ENCOUNTER 2018-01-24 04:32 | Emergency (ER) | payer OTHER ==
[2018-01-24 05:11] LABS: Appearance,Urine Clear (Clear); Bilirubin,Urine Negative (Negative); Blood,Urine Negative (Negative); Color,Urine Yellow; Glucose,Urine (UA) Negative (Negative); Ketones,Urine 1+ (Negative); Leukocyte Esterase,Urine Negative (Negative); Nitrite,Urine Negative (Negative); Protein,Urine Negative (Negative); Specific Gravity,Urine 1.011 (1.001-1.035)
[2018-01-24 05:18] LABS: Basophils # (A) 0.1 k/uL (0-0.2); Basophils % (A) 1 %; Eosinophils # (A) 0.3 k/uL (0-0.7); Eosinophils % (A) 3 %; HCT 47.4 % (39.0-53.0); HGB 16.3 gm/dL (13.0-17.5); Lymphocytes # (A) 1.1 k/uL (1.0-4.8); Lymphocytes % (A) 9 %; MCH 30.1 pg (25.0-35.0); MCHC 34.4 g/dL (31.0-37.0); MCV 87.5 fL (80.0-100.0); Mean Platelet Volume 7.1; Monocytes # (A) 0.5 k/uL (0-1.0); Monocytes % (A) 4 %; Neutrophils # (A) 9.4 k/uL (1.3-7.7); Neutrophils % (A) 82 %; Platelet Count 242 k/uL (150-450); RBC 5.42 m/uL (4.30-5.90); RDW 13.5 % (11.5-15.5); WBC 11.5 k/uL (3.8-10.6)
--- NOTE | 2018-01-24 05:25 | XR ---
EXAMINATION TYPE: XR KUB DATE OF EXAM: 01/24/2018 COMPARISON: 12/05/2016 HISTORY: Abdominal pain TECHNIQUE: 2 views FINDINGS: 2 upright views were obtained and show no sign of intestinal obstruction or pneumoperitoneu m. Fecal pattern is normal. There are clips from cholecystectomy. There is no evidence of a mass. El g bases are clear. There are no pathologic calcifications over the kidneys. IMPRESSION: Nonacute abdomen. No change.
--- NOTE | 2018-01-24 05:36 | ED ---
Abdominal Pain HPI - General Chief Complaint: Abdominal Pain Stated Complaint: Nausea Time Seen by Provider: 01/24/18 04:42 Source: patient Mode of arrival: ambulatory Limitations: no limitations - History of Present Illness Initial Comments: This patient is 27-year-old man who presents to have reevaluation of some abdominal pain that led him to see his doctor 2 days ago. Patient states that at that point the pain was in the right upper quadrant. The pain is subsequently feeling like it is moving around. It is episodic. It occurs in different locations. In addition the patient states his last bowel movement was a couple of days ago. MD Complaint: abdominal pain -: days(s) Location: RUQ Radiation: none Migration to: periumbilical Severity: moderate Quality: cramping Consistency: colicky Improves With: nothing Worsens With: nothing Associated Symptoms: nausea - Related Data Home Medications Medication Instructions Recorded Confirmed Insulin Aspart [NovoLOG See Protocol SQ TID-W/MEALS 10/30/15 01/24/18 (formulary)] Insulin Glargine [Lantus] 28 unit SQ DAILY@0000 12/22/16 01/24/18 Albuterol Sulfate [Proair Hfa] 1 - 2 puff INHALATION RT-Q6H PRN 12/19/17 Previous Rx's Medication Instructions Recorded Ondansetron Odt [Zofran Odt] 4 mg PO Q8HR PRN #15 tab 12/19/17 Allergies Allergy/AdvReac Type Severity Reaction Status Date / Time No Known Allergies Allergy Verified 01/24/18 04:39 Review of Systems ROS Statement: Those systems with pertinent positive or pertinent negative responses have been documented in the HPI. ROS Other: All systems not noted in ROS Statement are negative. Constitutional: Denies: fever, chills, weakness Respiratory: Denies: cough, dyspnea Cardiovascular: Denies: chest pain, palpitations, syncope Gastrointestinal: Reports: abdominal pain, nausea. Denies: vomiting, diarrhea, constipation, melena, hematochezia Genitourinary: Denies: dysuria, hematuria Musculoskeletal: Denies: back pain Skin: Denies: rash Neurological: Denies: headache, weakness, numbness Past Medical History Past Medical History: Asthma, Diabetes Mellitus, GERD/Reflux Additional Past Medical History / Comment(s): Other HX: IDDM type I History of Any Multi-Drug Resistant Organisms: None Reported Past Surgical History: Cholecystectomy Past Anesthesia/Blood Transfusion Reactions: Postoperative Nausea & Vomiting ( PONV) Additional Past Anesthesia/Blood Transfusion Reaction / Comment(s): Pt has never received blood. Past Psychological History: Anxiety, Depression Smoking Status: Current every day smoker Past Alcohol Use History: None Reported Past Drug Use History: Marijuana - Past Family History Father Family Medical History: Diabetes Mellitus, Hypertension Additional Family Medical History / Comment(s): type II diabetes. Mother Family Medical History: COPD Brother(s) Family Medical History: Diabetes Mellitus Additional Family Medical History / Comment(s): IDDM type I Sister(s) Family Medical History: No Reported History General Exam Limitations: no limitations General appearance: alert, in no apparent distress Head exam: Present: atraumatic, normocephalic Eye exam: Present: normal appearance. Absent: scleral icterus, conjunctival injection ENT exam: Present: normal oropharynx Neck exam: Present: normal inspection Respiratory exam: Present: normal lung sounds bilaterally. Absent: respiratory distress, wheezes, rales, rhonchi, stridor Cardiovascular Exam: Present: regular rate, normal rhythm, normal heart sounds. Absent: systolic murmur, diastolic murmur, rubs, gallop GI/Abdominal exam: Present: soft. Absent: distended, tenderness, guarding, rebound, rigid, mass Extremities exam: Present: normal inspection, normal capillary refill. Absent: pedal edema, calf tenderness Back exam: Present: normal inspection. Absent: CVA tenderness (R), CVA tenderness (L) Neurological exam: Present: alert Skin exam: Present: warm, dry, intact, normal color. Absent: rash Course Vital Signs 01/24/18 01/24/18 04:36 06:24 Temperature 98.6 F 100.0 F H Pulse Rate 107 H 94 Respiratory 16 18 Rate Blood Pressure 127/81 135/71 O2 Sat by Pulse 97 99 Oximetry Medical Decision Making - Medical Decision Making On reevaluation, the patient's abdomen remains soft and nontender. He is feeling better and would like to go home. I did discuss appropriate follow-up and further care. The patient is given appendix warning, but again at this point his exam is completely benign. - Lab Data Result diagrams: 01/24/18 04:50 01/24/18 04:50 Lab Results 01/24/18 01/24/18 01/24/18 Range/Units 04:50 04:50 04:50 WBC 11.5 H (3.8-10.6) k/uL RBC 5.42 (4.30-5.90) m/uL Hgb 16.3 (13.0-17.5) gm/dL Hct 47.4 (39.0-53.0) % MCV 87.5 (80.0-100.0) fL MCH 30.1 (25.0-35.0) pg MCHC 34.4 (31.0-37.0) g/dL RDW 13.5 (11.5-15.5) % Plt Count 242 (150-450) k/uL Neutrophils % 82 % Lymphocytes % 9 % Monocytes % 4 % Eosinophils % 3 % Basophils % 1 % Neutrophils # 9.4 H (1.3-7.7) k/uL Lymphocytes # 1.1 (1.0-4.8) k/uL Monocytes # 0.5 (0-1.0) k/uL Eosinophils # 0.3 (0-0.7) k/uL Basophils # 0.1 (0-0.2) k/uL Sodium 137 (137-145) mmol/L Potassium 4.2 (3.5-5.1) mmol/L Chloride 100 (98-107) mmol/L Carbon Dioxide 29 (22-30) mmol/L Anion Gap 8 mmol/L BUN 12 (9-20) mg/dL Creatinine 0.80 (0.66-1.25) mg/dL Est GFR (CKD-EPI)AfAm >90 (>60 ml/min/1.73 sqM) Est GFR (CKD-EPI)NonAf >90 (>60 ml/min/1.73 sqM) Glucose 102 H (74-99) mg/dL Calcium 9.9 (8.4-10.2) mg/dL Total Bilirubin 0.8 (0.2-1.3) mg/dL AST 30 (17-59) U/L ALT 50 (21-72) U/L Alkaline Phosphatase 86 (38-126) U/L Total Protein 7.2 (6.3-8.2) g/dL Albumin 4.8 (3.5-5.0) g/dL Amylase 40 (30-110) U/L Lipase 15 L (23-300) U/L Urine Color Yellow Urine Appearance Clear (Clear) Urine pH 6.0 (5.0-8.0) Ur Specific [place] 1.011 (1.001-1.035) Urine Protein Negative (Negative) Urine Glucose (UA) Negative (Negative) Urine Ketones 1+ H (Negative) Urine Blood Negative (Negative) Urine Nitrite Negative (Negative) Urine Bilirubin Negative (Negative) Urine Urobilinogen 2.0 (<2.0) mg/dL Ur Leukocyte Esterase Negative (Negative) Disposition Clinical Impression: Abdominal pain Disposition: HOME SELF-CARE Condition: Good Instructions: Abdominal Pain (ED) Is patient prescribed a controlled substance at d/c from ED?: No Referrals: Brett Miller MD [Primary Care Provider] - 1-2 days
[2018-01-24 05:37] LABS: ALT 50 U/L (21-72); AST 30 U/L (17-59); Albumin 4.8 g/dL (3.5-5.0); Alkaline Phosphatase 86 U/L (38-126); Amylase 40 U/L (30-110); Anion Gap 8 mmol/L; Blood Urea Nitrogen 12 mg/dL (9-20); Calcium 9.9 mg/dL (8.4-10.2); Carbon Dioxide 29 mmol/L (22-30); Chloride 100 mmol/L (98-107); Glucose 102 mg/dL (74-99); Lipase 15 U/L (23-300); Potassium 4.2 mmol/L (3.5-5.1); Sodium 137 mmol/L (137-145); Total Bilirubin 0.8 mg/dL (0.2-1.3); Total Protein 7.2 g/dL (6.3-8.2)
[2018-01-24] MEDS ORDERED: MAGNESIUM CITRATE 296 ML BOTTLE PO ONE (06:18)
[2018-01-24 06:25] VITALS: BP 135/71; PULSE 94; RESP 18; TEMP 100
== END 2018-01-24 06:29 | disposition home or self-care (01) ==
LOC: EC 04:32
DX: R10.11 Right upper quadrant pain (principal); R11.0 Nausea; J45.909 Unspecified asthma, uncomplicated; E10.9 Type 1 diabetes mellitus without complications; K21.9 Gastro-esophageal reflux disease without esophagitis; F17.200 Nicotine dependence, unspecified, uncomplicated; Z79.4 Long term (current) use of insulin; Z90.49 Acquired absence of other specified parts of digestive tract
CPT/HCPCS: 36415; 74018; 80053; 81003; 82150; 83690; 85025; 99284

== ENCOUNTER 2018-04-11 02:09 | Emergency (ER) | payer OTHER ==
[2018-04-11 02:16] VITALS: BP 142/87; PULSE 94; RESP 16; TEMP 97.9
[2018-04-11 02:34] LABS: Glucose,Whole Blood 98 mg/dL (75-99)
--- NOTE | 2018-04-11 02:34 | ED ---
General Adult HPI <Una Duggan P - Last Filed: 04/11/18 03:02> - General Source: patient, RN notes reviewed Mode of arrival: ambulatory Limitations: no limitations <Danielle Pink - Last Filed: 04/11/18 22:45> - General Chief complaint: Recheck/Abnormal Lab/Rx Stated complaint: hypoglycemia Time Seen by Provider: 04/11/18 02:18 - History of Present Illness Initial comments: This is a 28-year-old male with history of type 1 diabetes who presents to the emergency department with chief complaint of hypoglycemia. Patient reports taking 28 units of Lantus and 10 units of NovoLog at 2130 this evening. He states he then ate pizza. He states he has had 2 episodes of diaphoresis and feeling rundown since that time. He checked his blood glucose and reports he had measurements of 64 and 50. He became worried that he had taken too much insulin so came to the emergency department for evaluation. At this time, patient feels well. Denies fevers or chills, chest pain shortness breath, abdominal pain, nausea or vomiting. Patient has no longer diaphoretic. (Danielle Pink) - Related Data Home Medications Medication Instructions Recorded Confirmed Insulin Aspart [NovoLOG See Protocol SQ TID-W/MEALS 10/30/15 04/11/18 (formulary)] Insulin Glargine [Lantus] 28 unit SQ DAILY@0000 12/22/16 04/11/18 Albuterol Sulfate [Proair Hfa] 1 - 2 puff INHALATION RT-Q6H PRN 12/19/17 Previous Rx's Medication Instructions Recorded Ondansetron Odt [Zofran Odt] 4 mg PO Q8HR PRN #15 tab 12/19/17 Allergies Allergy/AdvReac Type Severity Reaction Status Date / Time No Known Allergies Allergy Verified 04/11/18 02:16 Review of Systems ROS Other: All systems not noted in ROS Statement are negative. <Una Duggan P - Last Filed: 04/11/18 03:02> ROS Other: All systems not noted in ROS Statement are negative. <Danielle Pink - Last Filed: 04/11/18 22:45> ROS Statement: Those systems with pertinent positive or pertinent negative responses have been documented in the HPI. Past Medical History Past Medical History: Asthma, Diabetes Mellitus, GERD/Reflux Additional Past Medical History / Comment(s): Other HX: IDDM type I History of Any Multi-Drug Resistant Organisms: None Reported Past Surgical History: Cholecystectomy Past Anesthesia/Blood Transfusion Reactions: Postoperative Nausea & Vomiting ( PONV) Additional Past Anesthesia/Blood Transfusion Reaction / Comment(s): Pt has never received blood. Past Psychological History: Anxiety, Depression Smoking Status: Current every day smoker Past Alcohol Use History: None Reported Past Drug Use History: Marijuana - Past Family History Father Family Medical History: Diabetes Mellitus, Hypertension Additional Family Medical History / Comment(s): type II diabetes. Mother Family Medical History: COPD Brother(s) Family Medical History: Diabetes Mellitus Additional Family Medical History / Comment(s): IDDM type I Sister(s) Family Medical History: No Reported History <Danielle Pink - Last Filed: 04/11/18 22:45> General Exam <Una Duggan - Last Filed: 04/11/18 03:02> Limitations: no limitations <Danielle Pink - Last Filed: 04/11/18 22:45> - General Exam Comments Initial Comments: General: Awake and alert, well-developed; in no apparent distress. Appears well. He is not diaphoretic. HEENT: Head atraumatic, normocephalic. Pupils are equal, round and reactive to light. Extraocular movements intact. Oropharynx moist without erythema or exudate. Neck: Supple. Normal ROM. Cardiovascular: Regular rate and rhythm. No murmurs, rubs or gallops. Chest symmetrical. Respiratory: Lungs clear to auscultation bilaterally. No wheezes, rales or rhonchi. Normal respiratory effort with no use of accessory muscles. Musculoskeletal: Normal ROM, no tenderness bilateral upper and lower extremities. Ambulating normally. Skin: [place], warm and dry without rashes or lesions. Neurological: Alert and oriented x3. CN II-XII grossly intact. Speech is fluent and answers are appropriate. No focal neuro deficits. Psychiatric: Normal mood and affect. No overt signs of depression or anxiety noted. (Danielle Pink) Vital Signs 04/11/18 02:12 Temperature 97.9 F Pulse Rate 94 Respiratory 16 Rate Blood Pressure 142/87 O2 Sat by Pulse 100 Oximetry Medical Decision Making <Una Duggan - Last Filed: 04/11/18 03:02> <Danielle Pink - Last Filed: 04/11/18 22:45> - Medical Decision Making This is a 28-year-old male with history of type 1 diabetes who presents to the emergency department with chief complaint of hypoglycemia. Patient was worried that he had taken too much insulin as his blood sugar dropped below normal twice this evening. On presentation the emergency department, patient was noted to have a blood glucose of 98. Patient was given juice and sherbet. Blood glucose was rechecked and is 236. Patient is asymptomatic. Patient reevaluated by Dr. Duggan. Vitals are stable and he is in no acute distress. Discharged home. All questions answered. (Danielle Pink) - Lab Data Lab Results 04/11/18 04/11/18 Range/Units 02:19 02:59 POC Glucose (mg/dL) 98 236 H (75-99) mg/dL POC Glu Gore Inserter Mohamud Cox Matthew Disposition Is patient prescribed a controlled substance at d/c from ED?: No <Una Duggan - Last Filed: 04/11/18 03:02> <Danielle Pink - Last Filed: 04/11/18 22:45> Clinical Impression: Hypoglycemia due to insulin Disposition: HOME SELF-CARE Condition: Good Instructions: Hypoglycemia in a Person with Diabetes (ED) Referrals: Brett Miller MD [Primary Care Provider] - 1-2 days
[2018-04-11 03:26] LABS: Glucose,Whole Blood 236 mg/dL (75-99)
== END 2018-04-11 03:07 | disposition home or self-care (01) ==
LOC: EC 02:09
DX: E10.649 Type 1 diabetes mellitus with hypoglycemia without coma (principal); F17.200 Nicotine dependence, unspecified, uncomplicated; Z79.4 Long term (current) use of insulin; Z83.3 Family history of diabetes mellitus
CPT/HCPCS: 36415; 99284

== ENCOUNTER 2018-07-22 11:47 | Emergency (ER) | payer OTHER ==
[2018-07-22 11:57] VITALS: RESP 18
[2018-07-22] MEDS ORDERED: SODIUM CHLORIDE 0.9% 1,000 ML IV ONE (12:28)
--- NOTE | 2018-07-22 12:40 | ED ---
General Adult HPI - General Chief complaint: Recheck/Abnormal Lab/Rx Stated complaint: Diabetic, Weakness Time Seen by Provider: 07/22/18 12:03 Source: patient Mode of arrival: ambulatory Limitations: no limitations - History of Present Illness Initial comments: 28-year-old male with past medical history of type 1 diabetes and gastroparesis presenting today for chief complaint of congestion, cough and lightheadedness. Patient states the past 2-3 days he has just felt "off". He states he has had cough, congestion and on off lightheaded feeling. Patient initially that this might be due to his blood glucose which often elevates during times of illness however he states it has been within a couple limits with last reading at 117. Patient states that 2 days ago for about 4-5 hours he did notice swelling of the feet bilaterally, he states he was concerned however it resolved. Patient denies any chest pain, orthopnea, dyspnea on exertion, dyspnea. Patient does admit to chills, denies recording fever. Patient states he does have a sore throat when he coughs however denies sore throat absence of cough. Patient denies any sputum production, hemoptysis. Patient denies any melena or hematochezia. Patient denies any recent travel, history of heart disease. Remainder is negative,Patient denies any back pain, abdominal pain, nausea or vomiting, numbness or tingling, oliguria, frequency, urgency dysuria or hematuria, constipation or diarrhea, headaches or visual changes, or any other complaints. On arrival patient's vital signs within normal limits. Patient appears well. - Related Data Home Medications Medication Instructions Recorded Confirmed Insulin Aspart [NovoLOG See Protocol SQ TID-W/MEALS 10/30/15 07/22/18 (formulary)] Insulin Glargine [Lantus] 28 unit SQ HS 12/22/16 07/22/18 Albuterol Sulfate [Proair Hfa] 1 - 2 puff INHALATION RT-Q6H PRN 12/19/17 Previous Rx's Medication Instructions Recorded Albuterol Inhaler [Ventolin Hfa 1 - 2 puff INHALATION RT-Q6H PRN 7 07/22/18 Inhaler] Days #1 inhaler Ondansetron [Zofran] 4 mg PO Q12HR PRN 10 Days #20 tab 07/22/18 Allergies Allergy/AdvReac Type Severity Reaction Status Date / Time No Known Allergies Allergy Verified 07/22/18 12:28 Review of Systems ROS Statement: Those systems with pertinent positive or pertinent negative responses have been documented in the HPI. ROS Other: All systems not noted in ROS Statement are negative. Past Medical History Past Medical History: Asthma, Diabetes Mellitus, GERD/Reflux Additional Past Medical History / Comment(s): Other HX: IDDM type I, gastroparesis History of Any Multi-Drug Resistant Organisms: None Reported Past Surgical History: Cholecystectomy Past Anesthesia/Blood Transfusion Reactions: Postoperative Nausea & Vomiting ( PONV) Additional Past Anesthesia/Blood Transfusion Reaction / Comment(s): Pt has never received blood. Past Psychological History: No Psychological Hx Reported Smoking Status: Current every day smoker Past Alcohol Use History: None Reported Past Drug Use History: Marijuana - Past Family History Father Family Medical History: Diabetes Mellitus, Hypertension Additional Family Medical History / Comment(s): type II diabetes. Mother Family Medical History: COPD Brother(s) Family Medical History: Diabetes Mellitus Additional Family Medical History / Comment(s): IDDM type I Sister(s) Family Medical History: No Reported History General Exam - General Exam Comments Initial Comments: General: The patient is awake and alert, in no distress, and does not appear acutely ill. Eye: +3 mm pupils are equal, round and reactive to light, extra-ocular movements are intact. No nystagmus. There is normal conjunctiva bilaterally. No signs of icterus. Ears, nose, mouth and throat: There are moist mucous membranes and no oral lesions. Oropharynx is mildly erythematous, no tonsillar enlargement exudates or lesions. Uvula midline postnasal drip noted. No anterior cervical lymphadenopathy. Neck: The neck is supple, there is no tenderness or JVD. Cardiovascular: There is a regular rate and rhythm. No murmur, rub or gallop is appreciated. Respiratory: Lungs are clear to auscultation, respirations are non-labored, breath sounds are equal. No wheezes, stridor, rales, or rhonchi. Gastrointestinal: Soft, non-distended, non-tender abdomen without masses or organomegaly noted. There is no rebound or guarding present. No CVA tenderness. Bowel sounds are unremarkable. Musculoskeletal: Normal ROM, no tenderness. Strength 5/5. Sensation intact. Radial and DP pulses equal bilaterally 2+. Neurological: A&O x 3. CN II-XII intact, There are no obvious motor or sensory deficits. Coordination appears grossly intact. Speech is normal. Skin: Skin is warm and dry and no rashes or lesions are noted. Lower extremity edema noted. Psychiatric: Cooperative, appropriate mood & affect, normal judgment. Limitations: no limitations Course Vital Signs 07/22/18 07/22/18 11:54 16:01 Temperature 97.9 F 98.1 F Pulse Rate 87 72 Respiratory 18 18 Rate Blood Pressure 131/67 O2 Sat by Pulse 100 98 Oximetry EKG Findings - EKG Comments: EKG Findings:: A 12-lead EKG was performed and shows the following: Rate is 60bpm, and rhythm is normal sinus. There are normal QRS complexes with abnormal QRS-T angle in only lead V2/3 evident in previous EKG. There is normal R-wave progression. ST segments have no elevation or depression, and HI segments appear normal.T wave inversion noted in lead III. Medical Decision Making - Medical Decision Making Patient presents with URI symptoms. Glucose stable. EKG no acute findings. Chest x-ray within normal limits. No concerning laboratory fimdings. Patient did have episode of typical gastroparesis episodes during visit, requested Zofran. This was administered. I attempted to contact Aiden, nurse in charge of diabetic counseling. Patient states he would like counseling for referral to an university administrative assistant. At this time and was not in his office. I did see at him later that day and relayed message as well as patient contact information. At this time do feel patient's symptoms related to a viral upper respiratory infection. Patient given information on symptomatic treatment and instructed to follow-up with primary care provider in next 1-2 days. Patient is agreeable plan discharge, appears happy. Deny questions at this time. Patient discharged stable condition appearing well after discussing the case with Dr. Tadeo. - Lab Data Result diagrams: 07/22/18 12:45 07/22/18 12:45 Lab Results 07/22/18 07/22/18 07/22/18 Range/Units 12:45 12:45 12:45 WBC 9.2 (3.8-10.6) k/uL RBC 5.22 (4.30-5.90) m/uL Hgb 16.2 (13.0-17.5) gm/dL Hct 46.1 (39.0-53.0) % MCV 88.3 (80.0-100.0) fL MCH 31.0 (25.0-35.0) pg MCHC 35.2 (31.0-37.0) g/dL RDW 13.6 (11.5-15.5) % Plt Count 209 (150-450) k/uL Neutrophils % 78 % Lymphocytes % 13 % Monocytes % 4 % Eosinophils % 3 % Basophils % 1 % Neutrophils # 7.2 (1.3-7.7) k/uL Lymphocytes # 1.2 (1.0-4.8) k/uL Monocytes # 0.4 (0-1.0) k/uL Eosinophils # 0.3 (0-0.7) k/uL Basophils # 0.1 (0-0.2) k/uL Sodium 141 (137-145) mmol/L Potassium 4.6 (3.5-5.1) mmol/L Chloride 101 (98-107) mmol/L Carbon Dioxide 28 (22-30) mmol/L Anion Gap 12 mmol/L BUN 18 (9-20) mg/dL Creatinine 0.77 (0.66-1.25) mg/dL Est GFR (CKD-EPI)AfAm >90 (>60 ml/min/1.73 sqM) Est GFR (CKD-EPI)NonAf >90 (>60 ml/min/1.73 sqM) Glucose 149 H (74-99) mg/dL Calcium 9.8 (8.4-10.2) mg/dL Total Bilirubin 0.9 (0.2-1.3) mg/dL AST 36 (17-59) U/L ALT 44 (21-72) U/L Alkaline Phosphatase 93 (38-126) U/L NT-Pro-B Natriuret Pep 18 pg/mL Total Protein 7.6 (6.3-8.2) g/dL Albumin 4.9 (3.5-5.0) g/dL Urine Color Urine Appearance (Clear) Urine pH (5.0-8.0) Ur Specific [place] (1.001-1.035) Urine Protein (Negative) Urine Glucose (UA) (Negative) Urine Ketones (Negative) Urine Blood (Negative) Urine Nitrite (Negative) Urine Bilirubin (Negative) Urine Urobilinogen (<2.0) mg/dL Ur Leukocyte Esterase (Negative) Influenza Type A RNA (Not Detectd) Influenza Type B (PCR) (Not Detectd) 07/22/18 07/22/18 Range/Units 12:45 14:19 WBC (3.8-10.6) k/uL RBC (4.30-5.90) m/uL Hgb (13.0-17.5) gm/dL Hct (39.0-53.0) % MCV (80.0-100.0) fL MCH (25.0-35.0) pg MCHC (31.0-37.0) g/dL RDW (11.5-15.5) % Plt Count (150-450) k/uL Neutrophils % % Lymphocytes % % Monocytes % % Eosinophils % % Basophils % % Neutrophils # (1.3-7.7) k/uL Lymphocytes # (1.0-4.8) k/uL Monocytes # (0-1.0) k/uL Eosinophils # (0-0.7) k/uL Basophils # (0-0.2) k/uL Sodium (137-145) mmol/L Potassium (3.5-5.1) mmol/L Chloride (98-107) mmol/L Carbon Dioxide (22-30) mmol/L Anion Gap mmol/L BUN (9-20) mg/dL Creatinine (0.66-1.25) mg/dL Est GFR (CKD-EPI)AfAm (>60 ml/min/1.73 sqM) Est GFR (CKD-EPI)NonAf (>60 ml/min/1.73 sqM) Glucose (74-99) mg/dL Calcium (8.4-10.2) mg/dL Total Bilirubin (0.2-1.3) mg/dL AST (17-59) U/L ALT (21-72) U/L Alkaline Phosphatase (38-126) U/L NT-Pro-B Natriuret Pep pg/mL Total Protein (6.3-8.2) g/dL Albumin (3.5-5.0) g/dL Urine Color Yellow Urine Appearance Clear (Clear) Urine pH 6.5 (5.0-8.0) Ur Specific [place] 1.021 (1.001-1.035) Urine Protein Negative (Negative) Urine Glucose (UA) Negative (Negative) Urine Ketones 2+ H (Negative) Urine Blood Negative (Negative) Urine Nitrite Negative (Negative) Urine Bilirubin Negative (Negative) Urine Urobilinogen <2.0 (<2.0) mg/dL Ur Leukocyte Esterase Negative (Negative) Influenza Type A RNA Not Detected (Not Detectd) Influenza Type B (PCR) Not Detected (Not Detectd) Disposition Clinical Impression: Viral URI with cough Disposition: HOME SELF-CARE Condition: Good Instructions: Viral Syndrome (ED) Additional Instructions: Please use medications as discussed. Please follow-up with family doctor in the next 1-2 days, as discussed. Please return to emergency room if the symptoms increase or worsen or for any other concerns. Prescriptions: Albuterol Inhaler [Ventolin Hfa Inhaler] 1 - 2 puff INHALATION RT-Q6H PRN 7 Days #1 inhaler PRN Reason: Wheezing Ondansetron [Zofran] 4 mg PO Q12HR PRN 10 Days #20 tab PRN Reason: nausea Is patient prescribed a controlled substance at d/c from ED?: No Referrals: Brett Miller MD [Primary Care Provider] - 1-2 days Time of Disposition: 15:34
--- NOTE | 2018-07-22 13:05 | XR ---
EXAMINATION TYPE: XR chest 2V DATE OF EXAM: 07/22/2018 COMPARISON: 09/03/2016 HISTORY: Cough with flulike symptoms TECHNIQUE: Frontal and lateral views of the chest are obtained. FINDINGS: There is no focal air space opacity, pleural effusion, or pneumothorax seen. The cardiac silhouette size is within normal limits. The osseous structures are intact. IMPRESSION: No acute cardiopulmonary process.
[2018-07-22 14:01] LABS: Basophils # (A) 0.1 k/uL (0-0.2); Basophils % (A) 1 %; Eosinophils # (A) 0.3 k/uL (0-0.7); Eosinophils % (A) 3 %; HCT 46.1 % (39.0-53.0); HGB 16.2 gm/dL (13.0-17.5); Lymphocytes # (A) 1.2 k/uL (1.0-4.8); Lymphocytes % (A) 13 %; MCHC 35.2 g/dL (31.0-37.0); MCV 88.3 fL (80.0-100.0); Mean Platelet Volume 7.6; Monocytes # (A) 0.4 k/uL (0-1.0); Monocytes % (A) 4 %; Neutrophils # (A) 7.2 k/uL (1.3-7.7); Neutrophils % (A) 78 %; Platelet Count 209 k/uL (150-450); RBC 5.22 m/uL (4.30-5.90); RDW 13.6 % (11.5-15.5); WBC 9.2 k/uL (3.8-10.6)
[2018-07-22 14:10] LABS: ALT 44 U/L (21-72); AST 36 U/L (17-59); Albumin 4.9 g/dL (3.5-5.0); Alkaline Phosphatase 93 U/L (38-126); Anion Gap 12 mmol/L; Blood Urea Nitrogen 18 mg/dL (9-20); Calcium 9.8 mg/dL (8.4-10.2); Carbon Dioxide 28 mmol/L (22-30); Chloride 101 mmol/L (98-107); Glucose 149 mg/dL (74-99); Potassium 4.6 mmol/L (3.5-5.1); Sodium 141 mmol/L (137-145); Total Bilirubin 0.9 mg/dL (0.2-1.3); Total Protein 7.6 g/dL (6.3-8.2)
[2018-07-22 14:54] LABS: Appearance,Urine Clear (Clear); Bilirubin,Urine Negative (Negative); Blood,Urine Negative (Negative); Color,Urine Yellow; Glucose,Urine (UA) Negative (Negative); Ketones,Urine 2+ (Negative); Leukocyte Esterase,Urine Negative (Negative); Nitrite,Urine Negative (Negative); PH, Urine 6.5 (5.0-8.0); Protein,Urine Negative (Negative); Specific Gravity,Urine 1.021 (1.001-1.035); Urobilinogen,Urine <2.0 mg/dL (<2.0)
[2018-07-22] MEDS ORDERED: ONDANSETRON 4 MG/2 ML VIAL IVP STA (15:08)
[2018-07-22 16:02] VITALS: BP 131/67; PULSE 72; TEMP 98.1
== END 2018-07-22 16:02 | disposition home or self-care (01) ==
LOC: EC 11:47
DX: J06.9 Acute upper respiratory infection, unspecified (principal); R42 Dizziness and giddiness; M79.89 Other specified soft tissue disorders; E10.8 Type 1 diabetes mellitus with unspecified complications; F17.200 Nicotine dependence, unspecified, uncomplicated; Z79.4 Long term (current) use of insulin
CPT/HCPCS: 36415; 83880; 80053; 85025; 81003; 87502; 71046; 99285; 96374; 96361; J2405

== ENCOUNTER 2018-12-03 13:20 | Emergency (ER) | payer OTHER ==
[2018-12-03] MEDS ORDERED: SODIUM CHLORIDE 0.9% 1,000 ML IV STA (13:27)
[2018-12-03] MEDS ORDERED: METOCLOPRAMIDE 5 MG/ML 2 ML VIAL IVP STA (13:28)
--- NOTE | 2018-12-03 13:44 | ED ---
General Adult HPI - General Chief complaint: Recheck/Abnormal Lab/Rx Stated complaint: Blood sugar issues Time Seen by Provider: 12/03/18 13:26 Source: patient Mode of arrival: ambulatory Limitations: no limitations - History of Present Illness Initial comments: Dictation was produced using [employer] dictation software. please excuse any grammatical, word or spelling errors. Chief Complaint: 28-year-old male with past nuchal history of type 1 diabetes, insulin dependence diabetic gastroparesis presents with nausea vomiting 2 days. History of Present Illness:-year-old male. He states that he is insulin- dependent diabetic. He has a history of gastroparesis. He states that over the last 2 days she's been having increased episode of nausea and vomiting. Patient states that his sugars also been high. He last checked his sugar last night at 9 PM with a level in the 300s. She gave himself some insulin and went to bed. While at this morning with persistent symptoms. Denies any vomiting. Patient states she's been having difficulty keeping fluids down. Patient denies daily marijuana use. Denies any abdominal pain. The ROS documented in this emergency department record has been reviewed and confirmed by me. Those systems with pertinent positive or negative responses have been documented in the HPI. All other systems are other negative and/or noncontributory. PHYSICAL EXAM: General Impression: Alert and oriented x3, not in acute distress HEENT: Normocephalic atraumatic, extra-ocular movements intact, pupils equal and reactive to light bilaterally, dry mucous membranes Cardiovascular: Heart regular rate and rhythm, S1&S2 audible, no murmurs, rubs or gallops Chest: Lungs clear to auscultation bilaterally, no rhonchi, no wheeze, no rales Abdomen: Bowel sounds present, abdomen soft, non-tender, non-distended, no organomegaly Musculoskeletal: Pulses present and equal in all extremities, no peripheral edema Motor: no focal deficits noted Neurological: CN II-XII grossly intact, no focal motor or sensory deficits noted Skin: Intact with no visualized rashes Psych: Normal affect and mood ED course: 28-year-old presents with nausea. Has history of diabetic gastroparesis and insulin-dependent diabetes mellitus. Vital signs upon arrival shows heart rate of 124, rest of vital signs within acceptable limits. She was last and diabetic ketoacidosis 3-4 years ago. Lavatory evaluation obtained. CBC unremarkable. Metabolic panel does not show any gap acidosis. Patient's sugar is 243. Patient given fluids. Magnesium is 1.5. Recheck blood sugar is 226. Urinalysis is 3+ for glucose. Patient reevaluated after antiemetics with improvement of symptoms. Patient feels well. Point no serious medical process occurring. Patient told to continue his insulin regimen as prescribed. Advised follow-up with primary care physician upon discharge. Patient clear and Prevacid discussed. - Related Data Home Medications Medication Instructions Recorded Confirmed INSULIN ASPART (NovoLOG) [NovoLOG See Protocol SQ TID-W/MEALS 10/30/15 12/03/18 (formulary)] Insulin Glargine [Lantus] 28 unit SQ HS 12/22/16 12/03/18 Previous Rx's Medication Instructions Recorded Albuterol Inhaler [Ventolin Hfa 1 - 2 puff INHALATION RT-Q6H PRN 7 07/22/18 Inhaler] Days #1 inhaler Allergies Allergy/AdvReac Type Severity Reaction Status Date / Time No Known Allergies Allergy Verified 12/03/18 13:42 Review of Systems ROS Statement: Those systems with pertinent positive or pertinent negative responses have been documented in the HPI. ROS Other: All systems not noted in ROS Statement are negative. Past Medical History Past Medical History: Asthma, Diabetes Mellitus, GERD/Reflux Additional Past Medical History / Comment(s): Other HX: IDDM type I, gastroparesis History of Any Multi-Drug Resistant Organisms: None Reported Past Surgical History: Cholecystectomy Past Anesthesia/Blood Transfusion Reactions: Postoperative Nausea & Vomiting (PONV) Additional Past Anesthesia/Blood Transfusion Reaction / Comment(s): Pt has never received blood. Past Psychological History: No Psychological Hx Reported Smoking Status: Current every day smoker Past Alcohol Use History: None Reported Past Drug Use History: Marijuana - Past Family History Father Family Medical History: Diabetes Mellitus, Hypertension Additional Family Medical History / Comment(s): type II diabetes. Mother Family Medical History: COPD Brother(s) Family Medical History: Diabetes Mellitus Additional Family Medical History / Comment(s): IDDM type I Sister(s) Family Medical History: No Reported History General Exam Limitations: no limitations Course Vital Signs 12/03/18 12/03/18 13:21 15:07 Temperature 98.3 F 98.5 F Pulse Rate 124 H 86 Respiratory 16 18 Rate Blood Pressure 142/95 114/67 O2 Sat by Pulse 100 100 Oximetry Medical Decision Making - Lab Data Result diagrams: 12/03/18 14:05 12/03/18 14:05 Lab Results 12/03/18 12/03/18 12/03/18 Range/Units 14:05 14:05 14:07 WBC 5.9 (3.8-10.6) k/uL RBC 5.11 (4.30-5.90) m/uL Hgb 15.1 (13.0-17.5) gm/dL Hct 44.5 (39.0-53.0) % MCV 87.1 (80.0-100.0) fL MCH 29.5 (25.0-35.0) pg MCHC 33.8 (31.0-37.0) g/dL RDW 13.2 (11.5-15.5) % Plt Count 211 (150-450) k/uL Neutrophils % 62 % Lymphocytes % 24 % Monocytes % 5 % Eosinophils % 6 % Basophils % 1 % Neutrophils # 3.7 (1.3-7.7) k/uL Lymphocytes # 1.4 (1.0-4.8) k/uL Monocytes # 0.3 (0-1.0) k/uL Eosinophils # 0.4 (0-0.7) k/uL Basophils # 0.1 (0-0.2) k/uL Sodium 137 (137-145) mmol/L Potassium 4.7 (3.5-5.1) mmol/L Chloride 102 (98-107) mmol/L Carbon Dioxide 28 (22-30) mmol/L Anion Gap 7 mmol/L BUN 15 (9-20) mg/dL Creatinine 0.65 L (0.66-1.25) mg/dL Est GFR (CKD-EPI)AfAm >90 (>60 ml/min/1.73 sqM) Est GFR (CKD-EPI)NonAf >90 (>60 ml/min/1.73 sqM) Glucose 277 H (74-99) mg/dL POC Glucose (mg/dL) (75-99) mg/dL POC Glu Glass Technician/Installer ID Calcium 9.4 (8.4-10.2) mg/dL Magnesium 1.5 L (1.6-2.3) mg/dL Total Bilirubin 0.8 (0.2-1.3) mg/dL AST 24 (17-59) U/L ALT 36 (21-72) U/L Alkaline Phosphatase 92 (38-126) U/L Total Protein 6.8 (6.3-8.2) g/dL Albumin 4.4 (3.5-5.0) g/dL Lipase 52 (23-300) U/L Urine Color Yellow Urine Appearance Clear (Clear) Urine pH 7.0 (5.0-8.0) Ur Specific [place] 1.024 (1.001-1.035) Urine Protein Negative (Negative) Urine Glucose (UA) 3+ H (Negative) Urine Ketones Negative (Negative) Urine Blood Negative (Negative) Urine Nitrite Negative (Negative) Urine Bilirubin Negative (Negative) Urine Urobilinogen <2.0 (<2.0) mg/dL Ur Leukocyte Esterase Negative (Negative) 12/03/18 12/03/18 Range/Units 14:08 15:02 WBC (3.8-10.6) k/uL RBC (4.30-5.90) m/uL Hgb (13.0-17.5) gm/dL Hct (39.0-53.0) % MCV (80.0-100.0) fL MCH (25.0-35.0) pg MCHC (31.0-37.0) g/dL RDW (11.5-15.5) % Plt Count (150-450) k/uL Neutrophils % % Lymphocytes % % Monocytes % % Eosinophils % % Basophils % % Neutrophils # (1.3-7.7) k/uL Lymphocytes # (1.0-4.8) k/uL Monocytes # (0-1.0) k/uL Eosinophils # (0-0.7) k/uL Basophils # (0-0.2) k/uL Sodium (137-145) mmol/L Potassium (3.5-5.1) mmol/L Chloride (98-107) mmol/L Carbon Dioxide (22-30) mmol/L Anion Gap mmol/L BUN (9-20) mg/dL Creatinine (0.66-1.25) mg/dL Est GFR (CKD-EPI)AfAm (>60 ml/min/1.73 sqM) Est GFR (CKD-EPI)NonAf (>60 ml/min/1.73 sqM) Glucose (74-99) mg/dL POC Glucose (mg/dL) 243 H 226 H (75-99) mg/dL POC Glu Glass Technician/Installer ID Brooke Angela A Creteau, Heather, A Calcium (8.4-10.2) mg/dL Magnesium (1.6-2.3) mg/dL Total Bilirubin (0.2-1.3) mg/dL AST (17-59) U/L ALT (21-72) U/L Alkaline Phosphatase (38-126) U/L Total Protein (6.3-8.2) g/dL Albumin (3.5-5.0) g/dL Lipase (23-300) U/L Urine Color Urine Appearance (Clear) Urine pH (5.0-8.0) Ur Specific [place] (1.001-1.035) Urine Protein (Negative) Urine Glucose (UA) (Negative) Urine Ketones (Negative) Urine Blood (Negative) Urine Nitrite (Negative) Urine Bilirubin (Negative) Urine Urobilinogen (<2.0) mg/dL Ur Leukocyte Esterase (Negative) Disposition Clinical Impression: Hyperglycemia, Nausea Disposition: HOME SELF-CARE Condition: Good Instructions (If sedation given, give patient instructions): Diabetic Hyperglycemia (ED) Is patient prescribed a controlled substance at d/c from ED?: No Referrals: Brett Miller MD [Primary Care Provider] - 1-2 days Time of Disposition: 15:09
[2018-12-03 14:15] LABS: Glucose,Whole Blood 243 mg/dL (75-99)
[2018-12-03 14:23] LABS: Appearance,Urine Clear (Clear); Bilirubin,Urine Negative (Negative); Blood,Urine Negative (Negative); Color,Urine Yellow; Glucose,Urine (UA) 3+ (Negative); Ketones,Urine Negative (Negative); Leukocyte Esterase,Urine Negative (Negative); Nitrite,Urine Negative (Negative); Protein,Urine Negative (Negative); Specific Gravity,Urine 1.024 (1.001-1.035); Urobilinogen,Urine <2.0 mg/dL (<2.0)
[2018-12-03 14:28] LABS: Basophils # (A) 0.1 k/uL (0-0.2); Basophils % (A) 1 %; Eosinophils # (A) 0.4 k/uL (0-0.7); Eosinophils % (A) 6 %; HCT 44.5 % (39.0-53.0); HGB 15.1 gm/dL (13.0-17.5); Lymphocytes # (A) 1.4 k/uL (1.0-4.8); Lymphocytes % (A) 24 %; MCH 29.5 pg (25.0-35.0); MCHC 33.8 g/dL (31.0-37.0); MCV 87.1 fL (80.0-100.0); Mean Platelet Volume 7.2; Monocytes # (A) 0.3 k/uL (0-1.0); Monocytes % (A) 5 %; Neutrophils # (A) 3.7 k/uL (1.3-7.7); Neutrophils % (A) 62 %; Platelet Count 211 k/uL (150-450); RBC 5.11 m/uL (4.30-5.90); RDW 13.2 % (11.5-15.5); WBC 5.9 k/uL (3.8-10.6)
[2018-12-03 14:37] LABS: ALT 36 U/L (21-72); AST 24 U/L (17-59); Albumin 4.4 g/dL (3.5-5.0); Alkaline Phosphatase 92 U/L (38-126); Anion Gap 7 mmol/L; Blood Urea Nitrogen 15 mg/dL (9-20); Calcium 9.4 mg/dL (8.4-10.2); Carbon Dioxide 28 mmol/L (22-30); Chloride 102 mmol/L (98-107); Glucose 277 mg/dL (74-99); Lipase 52 U/L (23-300); Magnesium 1.5 mg/dL (1.6-2.3); Potassium 4.7 mmol/L (3.5-5.1); Sodium 137 mmol/L (137-145); Total Bilirubin 0.8 mg/dL (0.2-1.3); Total Protein 6.8 g/dL (6.3-8.2)
[2018-12-03] MEDS ORDERED: MAGNESIUM OXIDE 400 MG TAB PO STA (15:00)
[2018-12-03] MEDS ORDERED: ONDANSETRON 4 MG/2 ML VIAL IVP STA (15:01)
[2018-12-03 15:04] LABS: Glucose,Whole Blood 226 mg/dL (75-99)
[2018-12-03 15:08] VITALS: BP 114/67; RESP 18
[2018-12-03 15:48] VITALS: PULSE 65; TEMP 98
== END 2018-12-03 15:46 | disposition home or self-care (01) ==
LOC: EC 13:20
DX: E10.65 Type 1 diabetes mellitus with hyperglycemia (principal); E10.43 Type 1 diabetes mellitus with diabetic autonomic (poly)neuropathy; K31.84 Gastroparesis; F17.200 Nicotine dependence, unspecified, uncomplicated; Z79.4 Long term (current) use of insulin; Z90.49 Acquired absence of other specified parts of digestive tract; Z83.3 Family history of diabetes mellitus
CPT/HCPCS: 36415; 80053; 83690; 83735; 85025; 81003; 99284; 96374; 96375; 96361; J2765; J2405

== ENCOUNTER 2019-02-27 09:59 | Emergency (ER) | payer OTHER ==
[2019-02-27 10:29] VITALS: RESP 18; TEMP 98.1
[2019-02-27] MEDS ORDERED: KETOROLAC 30 MG/ML 1 ML VIAL IVP STA (10:40)
--- NOTE | 2019-02-27 10:46 | ED ---
ENT HPI - General Chief complaint: Dental/Oral Stated complaint: Dental pain Time Seen by Provider: 02/27/19 10:30 Source: patient Mode of arrival: ambulatory Limitations: no limitations - History of Present Illness Initial comments: Patient is a 28-year-old male presenting to emergency Department with complaints of dental pain 1-2 weeks. Patient is also concerned that his blood sugar has been in the 300 to 400s for the last week. Patient is a type I diabetic. He is concerned that he might have an infection from his wisdom teeth. Patient states he did go to his dentist 1 week ago and had his teeth cleaned and may schedule an appointment to have his wrist and teeth removed. Patient has been trying Tylenol and Excedrin for his pain, and it helps briefly and the pain returns. Patient denies any fever, chills. - Related Data Home Medications Medication Instructions Recorded Confirmed INSULIN ASPART (NovoLOG) [NovoLOG See Protocol SQ TID-W/MEALS 10/30/15 12/03/18 (formulary)] Insulin Glargine [Lantus] 28 unit SQ HS 12/22/16 12/03/18 Previous Rx's Medication Instructions Recorded Albuterol Inhaler [Ventolin Hfa 1 - 2 puff INHALATION RT-Q6H PRN 7 07/22/18 Inhaler] Days #1 inhaler Ketorolac [Toradol] 10 mg PO Q8HR #15 tab 02/27/19 Allergies Allergy/AdvReac Type Severity Reaction Status Date / Time No Known Allergies Allergy Verified 02/27/19 10:27 Review of Systems ROS Statement: Those systems with pertinent positive or pertinent negative responses have been documented in the HPI. ROS Other: All systems not noted in ROS Statement are negative. Past Medical History Past Medical History: Asthma, Diabetes Mellitus, GERD/Reflux Additional Past Medical History / Comment(s): Other HX: IDDM type I, gastroparesis History of Any Multi-Drug Resistant Organisms: None Reported Past Surgical History: Cholecystectomy Past Anesthesia/Blood Transfusion Reactions: Postoperative Nausea & Vomiting (PONV) Additional Past Anesthesia/Blood Transfusion Reaction / Comment(s): Pt has never received blood. Past Psychological History: No Psychological Hx Reported Smoking Status: Current every day smoker Past Alcohol Use History: Occasional Past Drug Use History: Marijuana - Past Family History Father Family Medical History: Diabetes Mellitus, Hypertension Additional Family Medical History / Comment(s): type II diabetes. Mother Family Medical History: COPD Brother(s) Family Medical History: Diabetes Mellitus Additional Family Medical History / Comment(s): IDDM type I Sister(s) Family Medical History: No Reported History General Exam - General Exam Comments Initial Comments: GENERAL: Well-appearing, well-nourished and in no acute distress. HEAD: Atraumatic, normocephalic. EYES: Pupils equal round and reactive to light, extraocular movements intact, sclera anicteric, conjunctiva are normal. ENT: TMs normal, nares patent, oropharynx clear without exudates. Moist mucous membranes. No signs of an abscess in the gum lines. No erythema. NECK: Normal range of motion, supple without lymphadenopathy or JVD. LUNGS: Breath sounds clear to auscultation bilaterally and equal. No wheezes rales or rhonchi. HEART: Regular rate and rhythm without murmurs, rubs or gallops. ABDOMEN: Soft, nontender, normoactive bowel sounds. No guarding, no rebound. No masses appreciated. : Deferred EXTREMITIES: Normal range of motion, no pitting or edema. No clubbing or cyanosis. NEUROLOGICAL: Cranial nerves II through XII grossly intact. Normal speech, normal gait. PSYCH: Normal mood, normal affect. SKIN: Warm, Dry, normal turgor, no rashes or lesions noted. Limitations: no limitations Course Vital Signs 02/27/19 02/27/19 10:27 13:38 Temperature 98.1 F 98.1 F Pulse Rate 85 79 Respiratory 18 18 Rate Blood Pressure 126/80 108/68 O2 Sat by Pulse 97 99 Oximetry Medical Decision Making - Medical Decision Making Patient is a 28-year-old male with complaints of dental pain x 1 week. Patient is also a type I diabetic and states his blood sugars have been in 300 to 400s the past week. Patient admits to an increase in stress with passing his father and now the dental pain. Patient is set to have his was no teeth extracted in 2 weeks. Patient was concerned that he has an infection. On exam, there is no erythema or signs of an abscess on his wisdom teeth. CBC and BMP are within normal limits except for glucose of 339. Patient was given a liter fluids and Toradol for pain. Patient states his pain is improved and he is comfortable going home. Patient will check his blood sugar when he gets home. Patient is stable for discharge. Case discussed with Dr. Chacon. Return parameters were discussed with the patient he verbalizes understanding. - Lab Data Result diagrams: 02/27/19 11:14 02/27/19 11:14 Lab Results 02/27/19 02/27/19 Range/Units 11:14 11:14 WBC 7.0 (3.8-10.6) k/uL RBC 4.88 (4.30-5.90) m/uL Hgb 14.8 (13.0-17.5) gm/dL Hct 43.6 (39.0-53.0) % MCV 89.3 (80.0-100.0) fL MCH 30.4 (25.0-35.0) pg MCHC 34.0 (31.0-37.0) g/dL RDW 15.0 (11.5-15.5) % Plt Count 223 (150-450) k/uL Neutrophils % 71 % Lymphocytes % 18 % Monocytes % 3 % Eosinophils % 6 % Basophils % 1 % Neutrophils # 5.0 (1.3-7.7) k/uL Lymphocytes # 1.3 (1.0-4.8) k/uL Monocytes # 0.2 (0-1.0) k/uL Eosinophils # 0.4 (0-0.7) k/uL Basophils # 0.1 (0-0.2) k/uL Sodium 136 L (137-145) mmol/L Potassium 5.1 (3.5-5.1) mmol/L Chloride 101 (98-107) mmol/L Carbon Dioxide 29 (22-30) mmol/L Anion Gap 6 mmol/L BUN 13 (9-20) mg/dL Creatinine 0.68 (0.66-1.25) mg/dL Est GFR (CKD-EPI)AfAm >90 (>60 ml/min/1.73 sqM) Est GFR (CKD-EPI)NonAf >90 (>60 ml/min/1.73 sqM) Glucose 339 H (74-99) mg/dL Calcium 9.1 (8.4-10.2) mg/dL Disposition Clinical Impression: Pain, dental, Hyperglycemia due to type 1 diabetes mellitus Disposition: HOME SELF-CARE Condition: Stable Instructions (If sedation given, give patient instructions): Toothache (ED) Additional Instructions: Please return to the Emergency Department if symptoms worsen or any other concerns. Follow-up with dentist as discussed. Prescriptions: Ketorolac [Toradol] 10 mg PO Q8HR #15 tab Is patient prescribed a controlled substance at d/c from ED?: No Referrals: Brett Miller MD [Primary Care Provider] - 1-2 days
[2019-02-27 11:27] LABS: Basophils # (A) 0.1 k/uL (0-0.2); Basophils % (A) 1 %; Eosinophils # (A) 0.4 k/uL (0-0.7); Eosinophils % (A) 6 %; HCT 43.6 % (39.0-53.0); HGB 14.8 gm/dL (13.0-17.5); Lymphocytes # (A) 1.3 k/uL (1.0-4.8); Lymphocytes % (A) 18 %; MCH 30.4 pg (25.0-35.0); MCV 89.3 fL (80.0-100.0); Mean Platelet Volume 7.8; Monocytes # (A) 0.2 k/uL (0-1.0); Monocytes % (A) 3 %; Neutrophils % (A) 71 %; Platelet Count 223 k/uL (150-450); RBC 4.88 m/uL (4.30-5.90)
[2019-02-27 11:30] LABS: African American GFR (CKD) >90 (>60 ml/min/1.73 sqM); Anion Gap 6 mmol/L; Blood Urea Nitrogen 13 mg/dL (9-20); Calcium 9.1 mg/dL (8.4-10.2); Carbon Dioxide 29 mmol/L (22-30); Chloride 101 mmol/L (98-107); Glucose 339 mg/dL (74-99); Potassium 5.1 mmol/L (3.5-5.1); Sodium 136 mmol/L (137-145)
[2019-02-27] MEDS ORDERED: SODIUM CHLORIDE 0.9% 1,000 ML IV STA (11:39)
[2019-02-27 13:40] VITALS: BP 108/68; PULSE 79
== END 2019-02-27 13:38 | disposition home or self-care (01) ==
LOC: EC 09:59
DX: K08.89 Other specified disorders of teeth and supporting structures (principal); E10.65 Type 1 diabetes mellitus with hyperglycemia; E10.43 Type 1 diabetes mellitus with diabetic autonomic (poly)neuropathy; K31.84 Gastroparesis; F17.200 Nicotine dependence, unspecified, uncomplicated; Z79.4 Long term (current) use of insulin
CPT/HCPCS: 36415; 80048; 85025; 99283; 96374; 96361; J1885

== ENCOUNTER 2019-05-30 10:57 | Emergency (ER) | payer OTHER ==
[2019-05-30] MEDS ORDERED: SODIUM CHLORIDE 0.9% 2,000 ML IV STA (11:27)
[2019-05-30] MEDS ORDERED: SODIUM CHLORIDE 0.9% 1,000 ML IV STA (11:27)
[2019-05-30] MEDS ORDERED: ONDANSETRON 4 MG/2 ML VIAL IVP STA (11:27)
[2019-05-30 11:37] LABS: Glucose,Whole Blood 230 mg/dL (75-99)
[2019-05-30 11:46] LABS: Basophils # (A) 0.1 k/uL (0-0.2); Basophils % (A) 2 %; Eosinophils # (A) 0.4 k/uL (0-0.7); Eosinophils % (A) 5 %; HCT 45.6 % (39.0-53.0); HGB 15.5 gm/dL (13.0-17.5); Lymphocytes # (A) 1.5 k/uL (1.0-4.8); Lymphocytes % (A) 18 %; MCH 30.9 pg (25.0-35.0); MCHC 33.9 g/dL (31.0-37.0); MCV 91.2 fL (80.0-100.0); Mean Platelet Volume 6.9; Monocytes # (A) 0.3 k/uL (0-1.0); Monocytes % (A) 4 %; Neutrophils # (A) 5.7 k/uL (1.3-7.7); Neutrophils % (A) 70 %; Platelet Count 279 k/uL (150-450); RBC 5.01 m/uL (4.30-5.90); RDW 13.2 % (11.5-15.5); WBC 8.1 k/uL (3.8-10.6)
--- NOTE | 2019-05-30 11:49 | ED ---
Recheck HPI - General Chief Complaint: Recheck/Abnormal Lab/Rx Stated Complaint: high blood sugar/vomiting Time Seen by Provider: 05/30/19 11:20 Source: patient, RN notes reviewed, old records reviewed Mode of arrival: ambulatory Limitations: no limitations - History of Present Illness Initial Comments: Is a 21-year-old male type I diabetic. He manages his diabetes with insulin injections. Patient reports over the past 2 days he has been having increased nausea vomiting some episodes of diarrhea. He also reports these been having elevated blood sugars in the upper 400s to 500s. He has been dosing insulin and not eating but continues to have high blood sugars. He states that he has no specific abdominal pain. He denies any associated chest pain or shortness of breath. Just occasionally has crampy abdominal pain prior to vomiting. He does have a history of gastroparesis. - Related Data Home Medications Medication Instructions Recorded Confirmed INSULIN ASPART (NovoLOG) [NovoLOG See Protocol SQ TID-W/MEALS 10/30/15 12/03/18 (formulary)] Insulin Glargine [Lantus] 28 unit SQ HS 12/22/16 12/03/18 Previous Rx's Medication Instructions Recorded Albuterol Inhaler [Ventolin Hfa 1 - 2 puff INHALATION RT-Q6H PRN 7 07/22/18 Inhaler] Days #1 inhaler Ketorolac [Toradol] 10 mg PO Q8HR #15 tab 02/27/19 Ondansetron Odt [Zofran Odt] 4 mg PO Q8HR PRN #12 tab 05/30/19 Allergies Allergy/AdvReac Type Severity Reaction Status Date / Time No Known Allergies Allergy Verified 05/30/19 11:16 Review of Systems ROS Statement: Those systems with pertinent positive or pertinent negative responses have been documented in the HPI. ROS Other: All systems not noted in ROS Statement are negative. Past Medical History Past Medical History: Asthma, Diabetes Mellitus, GERD/Reflux Additional Past Medical History / Comment(s): Other HX: IDDM type I, gastroparesis History of Any Multi-Drug Resistant Organisms: None Reported Past Surgical History: Cholecystectomy Past Anesthesia/Blood Transfusion Reactions: Postoperative Nausea & Vomiting (PONV) Additional Past Anesthesia/Blood Transfusion Reaction / Comment(s): Pt has never received blood. Past Psychological History: No Psychological Hx Reported Smoking Status: Current every day smoker Past Alcohol Use History: Occasional Past Drug Use History: Marijuana - Past Family History Father Family Medical History: Diabetes Mellitus, Hypertension Additional Family Medical History / Comment(s): type II diabetes. Mother Family Medical History: COPD Brother(s) Family Medical History: Diabetes Mellitus Additional Family Medical History / Comment(s): IDDM type I Sister(s) Family Medical History: No Reported History General Exam - General Exam Comments Initial Comments: Pleasant 29 year old male, no distress. Limitations: no limitations General appearance: alert Head exam: Present: atraumatic, normocephalic, normal inspection Eye exam: Present: normal appearance, PERRL, EOMI. Absent: scleral icterus, conjunctival injection, periorbital swelling ENT exam: Present: normal exam, mucous membranes moist Neck exam: Present: normal inspection. Absent: tenderness, meningismus, lymphadenopathy Respiratory exam: Present: normal lung sounds bilaterally. Absent: respiratory distress, wheezes, rales, rhonchi, stridor Cardiovascular Exam: Present: regular rate, normal rhythm, normal heart sounds. Absent: systolic murmur, diastolic murmur, rubs, gallop, clicks GI/Abdominal exam: Present: soft, normal bowel sounds. Absent: distended, tenderness, guarding, rebound, rigid Back exam: Present: normal inspection Neurological exam: Present: alert, oriented X3, CN II-XII intact Psychiatric exam: Present: normal affect, normal mood Course Vital Signs 05/30/19 05/30/19 05/30/19 11:13 12:41 13:52 Temperature 98.2 F 98.5 F Pulse Rate 103 H 70 83 Respiratory 22 18 18 Rate Blood Pressure 114/79 120/68 113/72 O2 Sat by Pulse 97 100 98 Oximetry Medical Decision Making - Medical Decision Making 29 year old male, with nausea and vomiting. Hx of type 1 diabetes. He has no abdominal tenderness and no nausea and vomiting in ED. Patient has no fevers or chills. Patient given fluids and labs show no signs of DKA. Discussed likely viral gastroenteritis or related to gastroparesis. Discussed close follow up with PCP and given referral to Endocrinology for closer management of blood glucose. Discussed return parameters. . - Lab Data Result diagrams: 05/30/19 11:31 05/30/19 11:31 Lab Results 11/05/30/19 05/30/19 Range/Units 11:31 11:31 11:31 WBC 8.1 (3.8-10.6) k/uL RBC 5.01 (4.30-5.90) m/uL Hgb 15.5 (13.0-17.5) gm/dL Hct 45.6 (39.0-53.0) % MCV 91.2 (80.0-100.0) fL MCH 30.9 (25.0-35.0) pg MCHC 33.9 (31.0-37.0) g/dL RDW 13.2 (11.5-15.5) % Plt Count 279 (150-450) k/uL Neutrophils % 70 % Lymphocytes % 18 % Monocytes % 4 % Eosinophils % 5 % Basophils % 2 % Neutrophils # 5.7 (1.3-7.7) k/uL Lymphocytes # 1.5 (1.0-4.8) k/uL Monocytes # 0.3 (0-1.0) k/uL Eosinophils # 0.4 (0-0.7) k/uL Basophils # 0.1 (0-0.2) k/uL Sodium 138 (137-145) mmol/L Potassium 4.3 (3.5-5.1) mmol/L Chloride 102 (98-107) mmol/L Carbon Dioxide 22 (22-30) mmol/L Anion Gap 14 mmol/L BUN 17 (9-20) mg/dL Creatinine 0.67 (0.66-1.25) mg/dL Est GFR (CKD-EPI)AfAm >90 (>60 ml/min/1.73 sqM) Est GFR (CKD-EPI)NonAf >90 (>60 ml/min/1.73 sqM) Glucose 265 H (74-99) mg/dL POC Glucose (mg/dL) (75-99) mg/dL POC Glu B2B Outside Sales Representative ID Calcium 9.5 (8.4-10.2) mg/dL Total Bilirubin 0.9 (0.2-1.3) mg/dL AST 32 (17-59) U/L ALT 26 (21-72) U/L Alkaline Phosphatase 138 H (38-126) U/L Total Protein 7.2 (6.3-8.2) g/dL Albumin 4.4 (3.5-5.0) g/dL Amylase 39 (30-110) U/L Lipase 23 (23-300) U/L Urine Color Light Yellow Urine Appearance Clear (Clear) Urine pH 6.0 (5.0-8.0) Ur Specific Lyman 1.025 (1.001-1.035) Urine Protein Negative (Negative) Urine Glucose (UA) 4+ H (Negative) Urine Ketones 1+ H (Negative) Urine Blood Negative (Negative) Urine Nitrite Negative (Negative) Urine Bilirubin Negative (Negative) Urine Urobilinogen <2.0 (<2.0) mg/dL Ur Leukocyte Esterase Negative (Negative) Acetone, Qual Negative (Negative) 05/30/19 Range/Units 11:35 WBC (3.8-10.6) k/uL RBC (4.30-5.90) m/uL Hgb (13.0-17.5) gm/dL Hct (39.0-53.0) % MCV (80.0-100.0) fL MCH (25.0-35.0) pg MCHC (31.0-37.0) g/dL RDW (11.5-15.5) % Plt Count (150-450) k/uL Neutrophils % % Lymphocytes % % Monocytes % % Eosinophils % % Basophils % % Neutrophils # (1.3-7.7) k/uL Lymphocytes # (1.0-4.8) k/uL Monocytes # (0-1.0) k/uL Eosinophils # (0-0.7) k/uL Basophils # (0-0.2) k/uL Sodium (137-145) mmol/L Potassium (3.5-5.1) mmol/L Chloride (98-107) mmol/L Carbon Dioxide (22-30) mmol/L Anion Gap mmol/L BUN (9-20) mg/dL Creatinine (0.66-1.25) mg/dL Est GFR (CKD-EPI)AfAm (>60 ml/min/1.73 sqM) Est GFR (CKD-EPI)NonAf (>60 ml/min/1.73 sqM) Glucose (74-99) mg/dL POC Glucose (mg/dL) 230 H (75-99) mg/dL POC Glu B2B Outside Sales Representative ID EdwardsVictoria Calcium (8.4-10.2) mg/dL Total Bilirubin (0.2-1.3) mg/dL AST (17-59) U/L ALT (21-72) U/L Alkaline Phosphatase (38-126) U/L Total Protein (6.3-8.2) g/dL Albumin (3.5-5.0) g/dL Amylase (30-110) U/L Lipase (23-300) U/L Urine Color Urine Appearance (Clear) Urine pH (5.0-8.0) Ur Specific Lyman (1.001-1.035) Urine Protein (Negative) Urine Glucose (UA) (Negative) Urine Ketones (Negative) Urine Blood (Negative) Urine Nitrite (Negative) Urine Bilirubin (Negative) Urine Urobilinogen (<2.0) mg/dL Ur Leukocyte Esterase (Negative) Acetone, Qual (Negative) - Radiology Data Radiology results: report reviewed KUB shows normal bowel gas pattern. Disposition Clinical Impression: Nausea & vomiting, Diabetes mellitus type 1 Disposition: HOME SELF-CARE Condition: Good Instructions (If sedation given, give patient instructions): Acute Nausea and Vomiting (ED) Additional Instructions: Please use medication as discussed. Please follow up with family doctor if symptoms have not improved over the next two days. Please return to the emergency room if your symptoms increase or worsen or for any other concerns. Prescriptions: Ondansetron Odt [Zofran Odt] 4 mg PO Q8HR PRN #12 tab PRN Reason: Nausea Is patient prescribed a controlled substance at d/c from ED?: No Referrals: Brett Miller MD [Primary Care Provider] - 1-2 days Jackie Gee MD [STAFF PHYSICIAN] - 1-2 days Time of Disposition: 13:37
[2019-05-30 11:52] LABS: Appearance,Urine Clear (Clear); Bilirubin,Urine Negative (Negative); Blood,Urine Negative (Negative); Color,Urine Light Yellow; Glucose,Urine (UA) 4+ (Negative); Ketones,Urine 1+ (Negative); Leukocyte Esterase,Urine Negative (Negative); Nitrite,Urine Negative (Negative); Protein,Urine Negative (Negative); Specific Gravity,Urine 1.025 (1.001-1.035); Urobilinogen,Urine <2.0 mg/dL (<2.0)
[2019-05-30 12:00] LABS: ALT 26 U/L (21-72); AST 32 U/L (17-59); African American GFR (CKD) >90 (>60 ml/min/1.73 sqM); Albumin 4.4 g/dL (3.5-5.0); Alkaline Phosphatase 138 U/L (38-126); Amylase 39 U/L (30-110); Anion Gap 14 mmol/L; Blood Urea Nitrogen 17 mg/dL (9-20); Calcium 9.5 mg/dL (8.4-10.2); Carbon Dioxide 22 mmol/L (22-30); Chloride 102 mmol/L (98-107); Glucose 265 mg/dL (74-99); Non-African American GFR(CKD) >90 (>60 ml/min/1.73 sqM); Potassium 4.3 mmol/L (3.5-5.1); Sodium 138 mmol/L (137-145); Total Bilirubin 0.9 mg/dL (0.2-1.3); Total Protein 7.2 g/dL (6.3-8.2)
--- NOTE | 2019-05-30 12:17 | XR ---
EXAMINATION TYPE: XR KUB , 2 VIEWS DATE OF EXAM ORDERED: 05/30/2019 HISTORY: pain. COMPARISON: Previous study dated 01/24/2018. FINDINGS: The lung bases are clear. Within the abdomen, the abdominal gas pattern is normal. There is no evidence of obstruction or free air. There are surgical clips in the right upper quadrant. No abnormal calcifications are seen. IMPRESSION: NO ACUTE INTRA-ABDOMINAL ABNORMALITY.
[2019-05-30 12:42] VITALS: RESP 18
[2019-05-30 13:53] VITALS: BP 113/72; PULSE 83; TEMP 98.5
== END 2019-05-30 13:52 | disposition home or self-care (01) ==
LOC: EC 10:57
DX: E10.65 Type 1 diabetes mellitus with hyperglycemia (principal); F17.200 Nicotine dependence, unspecified, uncomplicated; Z79.4 Long term (current) use of insulin; Z87.19 Personal history of other diseases of the digestive system; Z90.49 Acquired absence of other specified parts of digestive tract; Z83.3 Family history of diabetes mellitus
CPT/HCPCS: 99285; 96374; 96361 ×2; 36415; 80053; 82150; 82009; 83690; 85025; 81003; 74018; J2405

== ENCOUNTER 2019-07-02 04:34 | Observation (INO) | payer OTHER ==
[2019-07-02 04:54] LABS: Glucose,Whole Blood 419 mg/dL (75-99)
[2019-07-02] MEDS ORDERED: SODIUM CHLORIDE 0.9% 2,000 ML IV ONE (04:59)
[2019-07-02] MEDS ORDERED: INSULIN ASPART (NovoLOG) 100 UNIT/ML VIAL SQ STA (05:01)
[2019-07-02] MEDS ORDERED: ONDANSETRON 4 MG/2 ML VIAL IVP STA ×2 (05:02→08:02)
[2019-07-02] MEDS ORDERED: KETOROLAC 30 MG/ML 1 ML VIAL IVP STA (05:02)
--- NOTE | 2019-07-02 05:08 | ED ---
General Adult HPI - General Source: patient Mode of arrival: ambulatory Limitations: no limitations <Cici Ayala - Last Filed: 07/02/19 05:01> <Rafal Koo - Last Filed: 07/02/19 06:54> <Shin Post - Last Filed: 07/02/19 11:04> - General Chief complaint: Dental/Oral Stated complaint: dental pain Time Seen by Provider: 07/02/19 04:58 - History of Present Illness Initial comments: 29-year-old male patient with past medical history significant for type 1 diabetes mellitus presents to the emergency department today for evaluation of left sided dental pain and elevated blood sugar. Patient states he has been having pain to his wisdom teeth upper and lower on the left side. Patient states he has been having pain for a little over a week. States the lower tooth is broken. Denies facial swelling. States he was started on PenVK which did not seem to helping so his doctor switched him to clindamycin four days ago. Patient states the pain has persisted. He states that his blood sugars have been out of control for the last 4-5 days. States he generally does sliding scale with a short acting and a long acting at night. States he has been taking his doses as directed. He is reporting nausea. Denies vomiting. He denies any fever or chills. Denies trismus or difficulty swallowing. He is scheduled to have the wisdom teeth extracted on 07/22/18. (Cici Ayala) - Related Data Home Medications Medication Instructions Recorded Confirmed Insulin Glargine [Lantus] 28 unit SQ HS 12/22/16 07/02/19 Insulin Lispro [Admelog] See Protocol SQ AC-TID 07/02/19 07/02/19 Previous Rx's Medication Instructions Recorded Albuterol Inhaler [Ventolin Hfa 1 - 2 puff INHALATION RT-Q6H PRN 7 07/22/18 Inhaler] Days #1 inhaler Allergies Allergy/AdvReac Type Severity Reaction Status Date / Time No Known Allergies Allergy Verified 07/02/19 10:03 Review of Systems ROS Other: All systems not noted in ROS Statement are negative. <Cici Ayala - Last Filed: 07/02/19 05:01> ROS Other: All systems not noted in ROS Statement are negative. <Rafal Koo - Last Filed: 07/02/19 06:54> ROS Other: All systems not noted in ROS Statement are negative. <Shin Post - Last Filed: 07/02/19 11:04> ROS Statement: Those systems with pertinent positive or pertinent negative responses have been documented in the HPI. Past Medical History Past Medical History: Asthma, Diabetes Mellitus, GERD/Reflux Additional Past Medical History / Comment(s): Other HX: IDDM type I, gastroparesis History of Any Multi-Drug Resistant Organisms: None Reported Past Surgical History: Cholecystectomy Past Anesthesia/Blood Transfusion Reactions: Postoperative Nausea & Vomiting (PONV) Additional Past Anesthesia/Blood Transfusion Reaction / Comment(s): Pt has never received blood. Past Psychological History: No Psychological Hx Reported Smoking Status: Current every day smoker Past Alcohol Use History: Occasional Past Drug Use History: Marijuana - Past Family History Father Family Medical History: Diabetes Mellitus, Hypertension Additional Family Medical History / Comment(s): type II diabetes. Mother Family Medical History: COPD Brother(s) Family Medical History: Diabetes Mellitus Additional Family Medical History / Comment(s): IDDM type I Sister(s) Family Medical History: No Reported History <JamieCici M - Last Filed: 07/02/19 05:01> General Exam Limitations: no limitations General appearance: alert, in no apparent distress, other (This is a well-deve loped, well-nourished adult male patient in no acute distress. ) Eye exam: Present: normal appearance, PERRL, EOMI. Absent: scleral icterus, conjunctival injection, periorbital swelling ENT exam: Present: normal oropharynx, mucous membranes moist, other (There is decayed and broken wisdom tooth to the left lower dentition. There is surrounding erythema and hyperplasia. No evidence of drainable abscess. ) Respiratory exam: Present: normal lung sounds bilaterally. Absent: respiratory distress, wheezes, rales, rhonchi, stridor Cardiovascular Exam: Present: regular rate, normal rhythm, normal heart sounds. Absent: systolic murmur, diastolic murmur, rubs, gallop, clicks GI/Abdominal exam: Present: soft, normal bowel sounds. Absent: distended, tenderness, guarding, rebound, rigid Neurological exam: Present: alert, oriented X3, CN II-XII intact Psychiatric exam: Present: normal affect, normal mood Skin exam: Present: warm, dry, intact, normal color. Absent: rash <JamieCici - Last Filed: 07/02/19 05:01> Respiratory exam: Present: normal lung sounds bilaterally Cardiovascular Exam: Present: regular rate, normal rhythm Expanded Peripheral pulses: 2+: Radial (R), Radial (L), Dorsalis Pedis (R), Dorsalis Pedis (L) <Shin Post - Last Filed: 07/02/19 11:04> Course <Rafal Koo - Last Filed: 07/02/19 06:54> <Shin Post - Last Filed: 07/02/19 11:04> Vital Signs 07/02/19 07/02/19 04:48 08:06 Temperature 97.9 F 97.9 F Pulse Rate 89 92 Respiratory 20 18 Rate Blood Pressure 132/80 106/64 O2 Sat by Pulse 97 99 Oximetry - Reevaluation(s) Reevaluation #1: 07/02/19 06:54 patient's laboratory testing reveals hyperglycemia, pseudo-hyponatremia, normal anion gap, normal CO2, he is acetone positive with ketones in his urine suggest ing ketosis however he is not acidotic. He is given 2 L normal saline and 5 units of IV insulin. His laboratory testing including a BMP and urinalysis will be repeated after fluid resuscitation and IV insulin. His care is signed out at shift change to Dr. Post awaiting repeat laboratory testing. (Rafal Koo) 07/02/19 09:41 patient was earlier reevaluated and resting comfortably in bed, nausea resolved. Patient was feeling much better. Dr. Donald was paged. 07/02/19 09:49 Patient now is starting to complain of some chest discomfort. Patient states she had this once previously also when his blood sugar was high. Patient feels sweaty and does appear somewhat diaphoretic. Repeat blood sugar 411. Cardiac testing has been ordered. EKG reviewed. Case discussed in detail with Dr. Rizzo who will admit covering for Dr. Miller. She is aware of pending troponin. Cardiology will be placed on consult. (Shin Post) EKG Findings - EKG Comments: EKG Findings:: sinus tachycardia at 1:15.. IL 164. QRS 92. QT 334. QTC 462. Normal axis. Incomplete right bundle-branch block. No acute ST change. <Shin Post - Last Filed: 07/02/19 11:04> Medical Decision Making - Lab Data Result diagrams: 07/02/19 04:55 07/02/19 04:55 <Rafal Koo Anselmo - Last Filed: 07/02/19 06:54> - Lab Data Result diagrams: 07/02/19 04:55 07/02/19 07:50 - Radiology Data Radiology results: image reviewed (chest x-ray shows no acute process) <Shin Post - Last Filed: 07/02/19 11:04> - Lab Data Lab Results 07/02/19 07/02/19 07/02/19 Range/Units 04:52 04:55 04:55 WBC 7.1 (3.8-10.6) k/uL RBC 4.50 (4.30-5.90) m/uL Hgb 14.4 (13.0-17.5) gm/dL Hct 42.5 (39.0-53.0) % MCV 94.3 (80.0-100.0) fL MCH 31.9 (25.0-35.0) pg MCHC 33.9 (31.0-37.0) g/dL RDW 12.9 (11.5-15.5) % Plt Count 243 (150-450) k/uL Neutrophils % 67 % Lymphocytes % 22 % Monocytes % 4 % Eosinophils % 5 % Basophils % 1 % Neutrophils # 4.8 (1.3-7.7) k/uL Lymphocytes # 1.6 (1.0-4.8) k/uL Monocytes # 0.3 (0-1.0) k/uL Eosinophils # 0.3 (0-0.7) k/uL Basophils # 0.1 (0-0.2) k/uL Sodium 133 L (137-145) mmol/L Potassium 4.5 (3.5-5.1) mmol/L Chloride 100 (98-107) mmol/L Carbon Dioxide 22 (22-30) mmol/L Anion Gap 11 mmol/L BUN 13 (9-20) mg/dL Creatinine 0.63 L (0.66-1.25) mg/dL Est GFR (CKD-EPI)AfAm >90 (>60 ml/min/1.73 sqM) Est GFR (CKD-EPI)NonAf >90 (>60 ml/min/1.73 sqM) Glucose 475 H (74-99) mg/dL POC Glucose (mg/dL) 419 H (75-99) mg/dL POC Glu Chili Maker ID Liseth Parada Calcium 9.1 (8.4-10.2) mg/dL Phosphorus 4.6 H (2.5-4.5) mg/dL Magnesium 1.5 L (1.6-2.3) mg/dL Total Bilirubin 0.6 (0.2-1.3) mg/dL AST 36 (17-59) U/L ALT 48 (4-49) U/L Alkaline Phosphatase 169 H (38-126) U/L Total Protein 6.0 L (6.3-8.2) g/dL Albumin 3.7 (3.5-5.0) g/dL Urine Color Urine Appearance (Clear) Urine pH (5.0-8.0) Ur Specific [place] (1.001-1.035) Urine Protein (Negative) Urine Glucose (UA) (Negative) Urine Ketones (Negative) Urine Blood (Negative) Urine Nitrite (Negative) Urine Bilirubin (Negative) Urine Urobilinogen (<2.0) mg/dL Ur Leukocyte Esterase (Negative) Acetone, Qual Positive (Negative) 07/02/19 07/02/19 07/02/19 Range/Units 04:55 07:50 07:50 WBC (3.8-10.6) k/uL RBC (4.30-5.90) m/uL Hgb (13.0-17.5) gm/dL Hct (39.0-53.0) % MCV (80.0-100.0) fL MCH (25.0-35.0) pg MCHC (31.0-37.0) g/dL RDW (11.5-15.5) % Plt Count (150-450) k/uL Neutrophils % % Lymphocytes % % Monocytes % % Eosinophils % % Basophils % % Neutrophils # (1.3-7.7) k/uL Lymphocytes # (1.0-4.8) k/uL Monocytes # (0-1.0) k/uL Eosinophils # (0-0.7) k/uL Basophils # (0-0.2) k/uL Sodium 136 L (137-145) mmol/L Potassium 4.5 (3.5-5.1) mmol/L Chloride 105 (98-107) mmol/L Carbon Dioxide 20 L (22-30) mmol/L Anion Gap 11 mmol/L BUN 13 (9-20) mg/dL Creatinine 0.62 L (0.66-1.25) mg/dL Est GFR (CKD-EPI)AfAm >90 (>60 ml/min/1.73 sqM) Est GFR (CKD-EPI)NonAf >90 (>60 ml/min/1.73 sqM) Glucose 313 H (74-99) mg/dL POC Glucose (mg/dL) (75-99) mg/dL POC Glu Chili Maker ID Calcium 8.4 (8.4-10.2) mg/dL Phosphorus (2.5-4.5) mg/dL Magnesium (1.6-2.3) mg/dL Total Bilirubin (0.2-1.3) mg/dL AST (17-59) U/L ALT (4-49) U/L Alkaline Phosphatase (38-126) U/L Total Protein (6.3-8.2) g/dL Albumin (3.5-5.0) g/dL Urine Color Light Yellow Light Yellow Urine Appearance Clear Clear (Clear) Urine pH 6.0 5.0 (5.0-8.0) Ur Specific [place] 1.018 1.021 (1.001-1.035) Urine Protein Negative Negative (Negative) Urine Glucose (UA) 4+ H 4+ H (Negative) Urine Ketones 1+ H 1+ H (Negative) Urine Blood Negative Negative (Negative) Urine Nitrite Negative Negative (Negative) Urine Bilirubin Negative Negative (Negative) Urine Urobilinogen <2.0 <2.0 (<2.0) mg/dL Ur Leukocyte Esterase Negative Negative (Negative) Acetone, Qual (Negative) 07/02/19 Range/Units 09:38 WBC (3.8-10.6) k/uL RBC (4.30-5.90) m/uL Hgb (13.0-17.5) gm/dL Hct (39.0-53.0) % MCV (80.0-100.0) fL MCH (25.0-35.0) pg MCHC (31.0-37.0) g/dL RDW (11.5-15.5) % Plt Count (150-450) k/uL Neutrophils % % Lymphocytes % % Monocytes % % Eosinophils % % Basophils % % Neutrophils # (1.3-7.7) k/uL Lymphocytes # (1.0-4.8) k/uL Monocytes # (0-1.0) k/uL Eosinophils # (0-0.7) k/uL Basophils # (0-0.2) k/uL Sodium (137-145) mmol/L Potassium (3.5-5.1) mmol/L Chloride (98-107) mmol/L Carbon Dioxide (22-30) mmol/L Anion Gap mmol/L BUN (9-20) mg/dL Creatinine (0.66-1.25) mg/dL Est GFR (CKD-EPI)AfAm (>60 ml/min/1.73 sqM) Est GFR (CKD-EPI)NonAf (>60 ml/min/1.73 sqM) Glucose (74-99) mg/dL POC Glucose (mg/dL) 410 H (75-99) mg/dL POC Glu Chili Maker ID Madiha Norris Calcium (8.4-10.2) mg/dL Phosphorus (2.5-4.5) mg/dL Magnesium (1.6-2.3) mg/dL Total Bilirubin (0.2-1.3) mg/dL AST (17-59) U/L ALT (4-49) U/L Alkaline Phosphatase (38-126) U/L Total Protein (6.3-8.2) g/dL Albumin (3.5-5.0) g/dL Urine Color Urine Appearance (Clear) Urine pH (5.0-8.0) Ur Specific [place] (1.001-1.035) Urine Protein (Negative) Urine Glucose (UA) (Negative) Urine Ketones (Negative) Urine Blood (Negative) Urine Nitrite (Negative) Urine Bilirubin (Negative) Urine Urobilinogen (<2.0) mg/dL Ur Leukocyte Esterase (Negative) Acetone, Qual (Negative) Critical Care Time Critical Care Time: Yes Total Critical Care Time: 31 <Shin Post - Last Filed: 07/02/19 11:04> Disposition <Cici Ayala - Last Filed: 07/02/19 05:01> <Rafal Koo - Last Filed: 07/02/19 06:54> Is patient prescribed a controlled substance at d/c from ED?: No Decision Time: 09:50 <Shin Post - Last Filed: 07/02/19 11:04> Clinical Impression: Diabetic ketoacidosis, type I Disposition: ADMITTED IP TO THIS HOSP
[2019-07-02 05:40] LABS: Appearance,Urine Clear (Clear); Bilirubin,Urine Negative (Negative); Blood,Urine Negative (Negative); Color,Urine Light Yellow; Glucose,Urine (UA) 4+ (Negative); Ketones,Urine 1+ (Negative); Leukocyte Esterase,Urine Negative (Negative); Nitrite,Urine Negative (Negative); Protein,Urine Negative (Negative); Specific Gravity,Urine 1.018 (1.001-1.035); Urobilinogen,Urine <2.0 mg/dL (<2.0)
[2019-07-02 05:45] LABS: ALT 48 U/L (4-49); AST 36 U/L (17-59); African American GFR (CKD) >90 (>60 ml/min/1.73 sqM); Albumin 3.7 g/dL (3.5-5.0); Alkaline Phosphatase 169 U/L (38-126); Anion Gap 11 mmol/L; Blood Urea Nitrogen 13 mg/dL (9-20); Calcium 9.1 mg/dL (8.4-10.2); Carbon Dioxide 22 mmol/L (22-30); Chloride 100 mmol/L (98-107); Glucose 475 mg/dL (74-99); Magnesium 1.5 mg/dL (1.6-2.3); Non-African American GFR(CKD) >90 (>60 ml/min/1.73 sqM); Phosphorus 4.6 mg/dL (2.5-4.5); Potassium 4.5 mmol/L (3.5-5.1); Sodium 133 mmol/L (137-145); Total Bilirubin 0.6 mg/dL (0.2-1.3)
[2019-07-02 05:50] LABS: Basophils # (A) 0.1 k/uL (0-0.2); Basophils % (A) 1 %; Eosinophils # (A) 0.3 k/uL (0-0.7); Eosinophils % (A) 5 %; HCT 42.5 % (39.0-53.0); HGB 14.4 gm/dL (13.0-17.5); Lymphocytes # (A) 1.6 k/uL (1.0-4.8); Lymphocytes % (A) 22 %; MCH 31.9 pg (25.0-35.0); MCHC 33.9 g/dL (31.0-37.0); MCV 94.3 fL (80.0-100.0); Mean Platelet Volume 7.8; Monocytes # (A) 0.3 k/uL (0-1.0); Monocytes % (A) 4 %; Neutrophils # (A) 4.8 k/uL (1.3-7.7); Neutrophils % (A) 67 %; Platelet Count 243 k/uL (150-450); RDW 12.9 % (11.5-15.5); WBC 7.1 k/uL (3.8-10.6)
[2019-07-02] MEDS ORDERED: INSULIN REGULAR 100 UNIT/ML VIAL IV ONE ×2 (05:57→09:27)
[2019-07-02] MEDS ORDERED: MAGNESIUM SULFATE-D5W PMX 1 GM in DEXTROSE/WATER 1 100ML.BAG IVPB ONE (06:04)
[2019-07-02 08:25] LABS: African American GFR (CKD) >90 (>60 ml/min/1.73 sqM); Anion Gap 11 mmol/L; Blood Urea Nitrogen 13 mg/dL (9-20); Calcium 8.4 mg/dL (8.4-10.2); Carbon Dioxide 20 mmol/L (22-30); Chloride 105 mmol/L (98-107); Glucose 313 mg/dL (74-99); Non-African American GFR(CKD) >90 (>60 ml/min/1.73 sqM); Potassium 4.5 mmol/L (3.5-5.1); Sodium 136 mmol/L (137-145)
[2019-07-02 08:27] LABS: Appearance,Urine Clear (Clear); Bilirubin,Urine Negative (Negative); Blood,Urine Negative (Negative); Color,Urine Light Yellow; Glucose,Urine (UA) 4+ (Negative); Ketones,Urine 1+ (Negative); Leukocyte Esterase,Urine Negative (Negative); Nitrite,Urine Negative (Negative); Protein,Urine Negative (Negative); Specific Gravity,Urine 1.021 (1.001-1.035); Urobilinogen,Urine <2.0 mg/dL (<2.0)
[2019-07-02] MEDS ORDERED: SODIUM CHLORIDE 0.9% 1,000 ML IV ONE ×2 (09:44→10:46)
[2019-07-02] MEDS ORDERED: SODIUM CHLORIDE 0.9% 1,000 ML IV SCH (09:45)
[2019-07-02] MEDS ORDERED: INSULIN REGULAR 100 UNIT in SODIUM CHLORIDE 0.9% 100 ML IV SCH (09:45)
[2019-07-02] MEDS ORDERED: NITROGLYCERIN SL TABS 0.4 MG TAB SUBLINGUAL PRN (09:55)
[2019-07-02] MEDS ORDERED: ASPIRIN 81 MG PO STA (09:55)
[2019-07-02 09:57] LABS: Glucose,Whole Blood 410 mg/dL (75-99)
[2019-07-02 10:33] LABS: Glucose,Whole Blood 433 mg/dL (75-99)
--- NOTE | 2019-07-02 10:37 | XR ---
EXAMINATION TYPE: XR chest 2V DATE OF EXAM: 07/02/2019 COMPARISON: 07/22/2018 INDICATION: Chest pain TECHNIQUE: Frontal and lateral views of the chest are obtained. FINDINGS: The heart size is normal. The pulmonary vasculature is normal. The lungs are clear. IMPRESSION: 1. No acute pulmonary process.
[2019-07-02 10:49] LABS: Creatine Kinase 65 U/L (55-170)
[2019-07-02 11:01] LABS: Creatine Kinase MB 0.5 ng/mL (0.0-2.4); Troponin I <0.012 ng/mL (0.000-0.034)
[2019-07-02 11:11] LABS: D-Dimer 0.26 mg/L FEU (<0.60); INR 0.9 (<1.2); Prothrombin Time 9.6 sec (9.0-12.0)
[2019-07-02 11:16] LABS: Glucose,Whole Blood 294 mg/dL (75-99)
[2019-07-02] MEDS: INSULIN DETEMIR (LEVEMIR) 100 UNIT/ML SYR SQ SCH (11:24)
[2019-07-02] MEDS: D5-0.45% NACL WITH KCL 20MEQ/L 1,000 ML IV SCH ×2 (12:10→17:33)
[2019-07-02 12:17] LABS: Glucose,Whole Blood 237 mg/dL (75-99)
[2019-07-02] MEDS: INSULIN ASPART (NovoLOG) 100 UNIT/ML VIAL SQ SCH ×3 (12:33→22:25)
--- NOTE | 2019-07-02 15:37 | P.HPIM ---
History of Present Illness H&P Date: 07/02/19 (this document was felt both his H&P and discharge summary) 29 years old male with patient type 1 diabetes comes in with the acute pain in his teeth going on for the past week. Patient was switched from penicillin to clindamycin as outpatientas penicillin was not helping. Patient started having nausea and vomiting yesterday and his blood sugar was going out of control for the past few days.patient is grieving from loss of his father one week ago. Patient continued taking short acting along and insulin but since no nausea and vomiting got worse patient decided to come to the ER. Patient has a scheduled wisdom teethextraction on 07/22/2018.on evaluation of the vitals patient attended 97.9 pulse rate 89 blood pressure 132/80. 2 L of normal saline and 5 units of IV insulin was given.patient had a mild anion Gap that closed with the giving of IV fluids. Blood [id number] on admission. Since then and gap closed patient was switched to Lantus and insulin sliding scale. Patient was planned to be discharged when she started noticing substernal chest pain associated with diaphoresis. Patient has a strong family history of heart attacks and lost his father one week ago from sudden heart attack. Patient is a nonsmokerand denies previous history of chest pain. Patient does endorse anxiety and had panic attacks in the past. Troponin 1 is negativeEKG is negative for ST or T-wave changes. Review of Systems Constitutional: Denies chills, Denies fever, Denies lethargy, Denies malaise, Denies poor appetite, Denies weakness, Denies weight loss Eyes: denies decreased vision, denies diplopia, denies discharge, denies pain Ears: deny: decreased hearing Ears, nose, mouth and throat: Denies dental pain, Denies headache, Denies nasal discharge, Denies nose painendorses tooth ache Cardiovascular: endorses chest pain, resolved now Denies decreased exercise tolerance, Denies edema, Denies high blood pressure, Denies irregular heart beat, Denies palpitations, Denies paroxysmal nocturnal dyspnea, Denies rapid heart beat, Denies shortness of breathendorses excessive sweating, resolved no Respiratory: Denies congestion, Denies cough, Denies cough with sputum, Denies dyspnea, Denies home oxygen, Denies wheezing Gastrointestinal: Denies abdominal pain, Denies change in bowel habits, Denies coffee ground emesis, Denies early satiety, Denies excessive gas, Denies heartb urn, Denies hematemesis, Denies hematochezia, Denies loss of appetite, Denies nausea, Denies vomiting Genitourinary: Denies dysuria, Denies flank pain, Denies kidney stones, Denies menorrhagia, Denies urgency, Denies urinary frequency Musculoskeletal: Denies gait dysfunction, Denies limitation of motion, Denies morning stiffness, Denies muscle cramps Integumentary: Denies rash, Denies wounds, Denies brittle nails, Denies change in hair/nails, Denies darkening of skin Neurological: Denies balance difficulties, Denies change in speech, Denies double vision, Denies gait dysfunction, Denies loss of vision, Denies motor disturbance, Denies numbness, Denies paralysis, Denies paresthesias, Denies s eizuresendorses new or neuropathy lower extremity that has improved Psychiatric: Denies anxiety, Denies depression Endocrine: Denies excessive sweating, Denies excessive thirst, endorses high blood sugar, Denies palpitations Hematologic/Lymphatic: Denies easy bruising, Denies lymphadenopathy Past Medical History Past Medical History: Asthma, Diabetes Mellitus, GERD/Reflux Additional Past Medical History / Comment(s): IDDM type I, neuropathy bilateral feet in the past, DKAs, gastroparesis, bronchitis, meningitis at the age of 12 yrs. History of Any Multi-Drug Resistant Organisms: None Reported Past Surgical History: Cholecystectomy Past Anesthesia/Blood Transfusion Reactions: No Reported Reaction, Postoperative Nausea & Vomiting (PONV) Additional Past Anesthesia/Blood Transfusion Reaction / Comment(s): Pt has never received blood. Smoking Status: Light tobacco smoker - Past Family History Father Family Medical History: Coronary Artery Disease (CAD), Diabetes Mellitus, Hypertension Additional Family Medical History / Comment(s): type II diabetes. Father had 7 MIs and of a OK at the age of 69yrs. Mother Family Medical History: COPD Brother(s) Family Medical History: Diabetes Mellitus Additional Family Medical History / Comment(s): IDDM type I Sister(s) Family Medical History: No Reported History Medications and Allergies Home Medications Medication Instructions Recorded Confirmed Type Insulin Glargine [Lantus] 28 unit SQ HS 12/22/16 07/02/19 History Albuterol Inhaler [Ventolin Hfa 1 - 2 puff INHALATION RT-Q6H PRN 7 07/22/18 07/02/19 Rx Inhaler] Days #1 inhaler Insulin Lispro [Admelog] See Protocol SQ AC-TID 07/02/19 07/02/19 History Allergies Allergy/AdvReac Type Severity Reaction Status Date / Time No Known Allergies Allergy Verified 07/02/19 10:03 Physical Exam Vitals: Vital Signs Temp Pulse Pulse Resp BP BP Pulse Ox 07/02/19 12:00 100 07/02/19 11:52 100 18 129/86 97 07/02/19 08:06 97.9 F 92 18 106/64 99 07/02/19 04:48 97.9 F 89 20 132/80 97 Intake and Output 07/02/19 07/02/19 07/02/19 06:59 14:59 22:59 Other: # Voids 2 Weight 70.307 kg 70.307 kg - Constitutional General appearance: cooperative, no acute distress, obese - EENT Eyes: anicteric sclerae, PERRLA, normal appearance ENT: hearing grossly normal, wisdom tooth on the left painful, no periodontal disease noted - Neck Neck: no lymphadenopathy, normal ROM, no other, no rigidity, no stridor, no thyromegaly - Respiratory Respiratory: bilateral: CTA, negative: diminished, dullness, rales, rhonchi - Cardiovascular Rhythm: regular Heart sounds: normal: S1, S2 Abnormal Heart Sounds: no systolic murmur, no diastolic murmur, no rub, no S3 Gallop, no S4 Gallop, no click, no other - Gastrointestinal General gastrointestinal: normal bowel sounds, soft - Integumentary Integumentary: no rash - Neurologic Neurologic: CNII-XII intactsensation intact bilateral lower extremity - Musculoskeletal Musculoskeletal: gait normal, strength equal bilaterally - Psychiatric Psychiatric: A&O x's 3, appropriate affect Results CBC & Chem 7: 07/02/19 04:55 07/02/19 07:50 Labs: Abnormal Lab Results - Last 24 Hours (Table) 07/02/19 07/02/19 07/02/19 Range/Units 04:52 04:55 04:55 APTT (22.0-30.0) sec Sodium 133 L (137-145) mmol/L Carbon Dioxide (22-30) mmol/L Creatinine 0.63 L (0.66-1.25) mg/dL Glucose 475 H (74-99) mg/dL POC Glucose (mg/dL) 419 H (75-99) mg/dL Phosphorus 4.6 H (2.5-4.5) mg/dL Magnesium 1.5 L (1.6-2.3) mg/dL Alkaline Phosphatase 169 H (38-126) U/L Total Protein 6.0 L (6.3-8.2) g/dL Urine Glucose (UA) 4+ H (Negative) Urine Ketones 1+ H (Negative) 07/02/19 07/02/19 07/02/19 Range/Units 07:50 07:50 09:38 APTT (22.0-30.0) sec Sodium 136 L (137-145) mmol/L Carbon Dioxide 20 L (22-30) mmol/L Creatinine 0.62 L (0.66-1.25) mg/dL Glucose 313 H (74-99) mg/dL POC Glucose (mg/dL) 410 H (75-99) mg/dL Phosphorus (2.5-4.5) mg/dL Magnesium (1.6-2.3) mg/dL Alkaline Phosphatase (38-126) U/L Total Protein (6.3-8.2) g/dL Urine Glucose (UA) 4+ H (Negative) Urine Ketones 1+ H (Negative) 07/02/19 07/02/19 07/02/19 Range/Units 10:00 10:13 11:14 APTT 21.0 L (22.0-30.0) sec Sodium (137-145) mmol/L Carbon Dioxide (22-30) mmol/L Creatinine (0.66-1.25) mg/dL Glucose (74-99) mg/dL POC Glucose (mg/dL) 433 H 294 H (75-99) mg/dL Phosphorus (2.5-4.5) mg/dL Magnesium (1.6-2.3) mg/dL Alkaline Phosphatase (38-126) U/L Total Protein (6.3-8.2) g/dL Urine Glucose (UA) (Negative) Urine Ketones (Negative) 07/02/19 Range/Units 12:16 APTT (22.0-30.0) sec Sodium (137-145) mmol/L Carbon Dioxide (22-30) mmol/L Creatinine (0.66-1.25) mg/dL Glucose (74-99) mg/dL POC Glucose (mg/dL) 237 H (75-99) mg/dL Phosphorus (2.5-4.5) mg/dL Magnesium (1.6-2.3) mg/dL Alkaline Phosphatase (38-126) U/L Total Protein (6.3-8.2) g/dL Urine Glucose (UA) (Negative) Urine Ketones (Negative) Thrombosis Risk Factor Assmnt - DVT/VTE Prophylaxis DVT/VTE Prophylaxis: Mechanical Prophylaxis ordered - Choose All That Apply Any of the Below Risk Factors Present?: Yes Other Risk Factors: No Other congenital or acquired thrombophilia - If yes, enter type in comment: No Assessment and Plan Plan: #1 diabetic ketoacidosis resolved status post 3 L IV fluids. patient was on insulin pump but was switched to subcutaneous insulin as patient's insurance denied coverage Continue IV normal saline at 200 mL per hour. magnesium, potas sium, phosphorus, BMP to be repeated every 6 hours. Discontinue insulin pump switch patient to Lantus 15 units twice a day. Continue insulin sliding scale. #2 gastroparesisimproved with tight glucose control #3 diabetic neuropathy is improved with insulin #4 asthma shortness of breath improved. DuoNeb as needed for shortness of breath #5 acute chest pain likely secondary to anxiety since patient just lost his father. He does have a little panic attack. Troponin 1 negative EKG positive for sinus tachycardia and right bundle branch block. Cardiology consult. #6 DVT prophylaxis SCDs #7 GI prophylaxis pepcid 20 mg by mouth daily CODE STATUS full code
[2019-07-02 16:38] LABS: Glucose,Whole Blood 238 mg/dL (75-99)
[2019-07-02 19:11] LABS: Glucose,Whole Blood 236 mg/dL (75-99)
[2019-07-02 22:21] LABS: Glucose,Whole Blood 230 mg/dL (75-99)
[2019-07-03 03:02] LABS: Cholesterol 169 mg/dL (<200); HDL Cholesterol 40 mg/dL (40-60); LDL Cholesterol,Calculated 98 mg/dL (0-99); Triglycerides 153 mg/dL (<150)
[2019-07-03 05:30] LABS: Glucose,Whole Blood 121 mg/dL (75-99)
[2019-07-03 05:32] VITALS: BP 128/77; PULSE 90; RESP 16; TEMP 97.7
[2019-07-03 07:22] LABS: Glucose,Whole Blood 148 mg/dL (75-99)
[2019-07-03] MEDS: INSULIN DETEMIR (LEVEMIR) 100 UNIT/ML SYR SQ SCH (07:54)
[2019-07-03] MEDS: INSULIN ASPART (NovoLOG) 100 UNIT/ML VIAL SQ SCH ×2 (07:54→12:29)
[2019-07-03] MEDS ORDERED: ASPIRIN 325 MG TAB PO SCH (09:00)
[2019-07-03 09:53] VITALS: BMI 25.0
[2019-07-03 11:47] LABS: Glucose,Whole Blood 202 mg/dL (75-99)
--- NOTE | 2019-07-03 12:54 | P.CRDCN ---
History of Present Illness Consult date: 07/03/19 Requesting physician: Young Rosenthal Reason for Consult (text): chest pain Chief complaint: dental pain, elevated glucose, chest pain History of present illness: This is a pleasant 29-year-old gentleman with history of type 1 diabetes. Presented to the emergency department with ongoing dental pain and elevated blood glucose. Was found to have blood glucose over 400 and in DKA on admission. Blood sugars have improved and he is back on subcutaneous insulin. Patient was being discharged yesterday and developed sudden onset chest discomfort while he was resting in bed. EKG showed no ST-T wave changes indicative of ischemia. He does have a family history of CAD and his father's side. Coronary the patient is father started having issues with MIs and CABG in his 50s. The patient did have similar symptoms a couple years ago at which time he underwent Lexiscan Cardiolite stress test which showed no evidence of ischemia. Vital signs of been stable. Troponins have been negative. Upon examination, patient is resting comfortable in bed. No further complaints of chest discomfort. He's been up ambulating without difficulties. Past Medical History Past Medical History: Asthma, Diabetes Mellitus, GERD/Reflux Additional Past Medical History / Comment(s): Other HX: IDDM type I, gastroparesis History of Any Multi-Drug Resistant Organisms: None Reported Past Surgical History: Cholecystectomy Past Anesthesia/Blood Transfusion Reactions: Postoperative Nausea & Vomiting (PONV) Additional Past Anesthesia/Blood Transfusion Reaction / Comment(s): Pt has never received blood. Past Psychological History: No Psychological Hx Reported Smoking Status: Current every day smoker Past Alcohol Use History: Occasional Past Drug Use History: Marijuana - Past Family History Father Family Medical History: Diabetes Mellitus, Hypertension Additional Family Medical History / Comment(s): type II diabetes. Mother Family Medical History: COPD Brother(s) Family Medical History: Diabetes Mellitus Additional Family Medical History / Comment(s): IDDM type I Sister(s) Family Medical History: No Reported History Medications and Allergies Home Medications Medication Instructions Recorded Confirmed Type Albuterol Inhaler [Ventolin Hfa 1 - 2 puff INHALATION RT-Q6H PRN 7 07/22/18 Rx Inhaler] Days #1 inhaler Insulin Glargine [Lantus] 15 unit SQ BID #0 07/02/19 07/02/19 Rx Insulin Lispro [Admelog] See Protocol SQ AC-TID 07/02/19 07/02/19 History Allergies Allergy/AdvReac Type Severity Reaction Status Date / Time No Known Allergies Allergy Verified 07/02/19 10:03 Physical Exam Vitals: Vital Signs Temp Pulse Pulse Resp BP BP Pulse Ox 07/03/19 09:55 98 07/03/19 05:20 97.7 F 90 16 128/77 98 07/02/19 20:51 98.3 F 93 15 116/70 98 07/02/19 15:36 88 18 121/71 98 Intake and Output 07/02/19 07/03/19 07/03/19 22:59 06:59 14:59 Other: # Voids 2 1 1 Weight 70.307 kg PHYSICAL EXAMINATION: HEENT: Head is atraumatic, normocephalic. Pupils equal, round. Neck is supple. There is no elevated jugular venous pressure. HEART EXAMINATION: Heart sounds regular, S1 and S2 normal. No murmur or gallop heard. CHEST EXAMINATION: Lungs are clear to auscultation and precussion. No chest wall tenderness is noted on palpation or with deep breathing. ABDOMEN: Soft, nontender. Bowel sounds are heard. No organomegaly noted. EXTREMITIES: 2+ peripheral pulses with no evidence of peripheral edema and no calf tenderness noted. NEUROLOGIC patient is awake, alert and oriented x3. . Results 07/02/19 04:55 07/02/19 07:50 Cardiac Enzymes 07/02/19 Range/Units 16:04 Troponin I <0.012 (0.000-0.034) ng/mL Lipids 07/02/19 Range/Units 07:50 Triglycerides 153 H (<150) mg/dL Cholesterol 169 (<200) mg/dL HDL Cholesterol 40 (40-60) mg/dL Current Medications Generic Name Dose Route Start Last Admin Trade Name Freq PRN Reason Stop Dose Admin Aspirin 325 mg 07/03/19 09:00 07/03/19 07:54 Aspirin PO 325 mg DAILY OBED Administration Sodium Chloride 1,000 mls @ 200 mls/hr 07/02/19 09:45 07/02/19 11:57 Saline 0.9% IV Not Given .Q5H OBED Sodium Chloride 1,000 mls @ 500 mls/hr 07/02/19 09:44 07/02/19 10:07 Saline 0.9% IV 500 mls/hr .Q2H ONE Administration Insulin Aspart 0 unit 07/02/19 12:30 07/03/19 12:29 Novolog SQ 2 unit ACHS OBED Administration Protocol Insulin Detemir 15 unit 07/02/19 11:30 07/03/19 07:54 Levemir SQ 15 unit DAILY@0700 OBED Administration Nitroglycerin 0.4 mg 07/02/19 09:55 Nitrostat SUBLINGUAL Q5M PRN Chest Pain Intake and Output 07/02/19 07/03/19 07/03/19 22:59 06:59 14:59 Other: # Voids 2 1 1 Weight 70.307 kg Patient Weight 07/04/19 06:59 Weight 70.307 kg 07/02/19 04:55 07/02/19 07:50 Assessment and Plan Assessment: #1 DKA, resolved #2 atypical chest pain with negative troponins and no significant EKG changes #3 family history CAD Plan: From cardiology's perspective, we will review the 2-D echo with Doppler that was done this morning. If there are no significant abnormalities on the echocardiogram patient may be discharged home today and follow-up as an outpatient. PRESIDENT AND CHIEF OPERATING OFFICER note has been reviewed, I agree with a documented findings and plan of care. Patient was seen and examined.
--- NOTE | 2019-07-03 12:59 | P.DS ---
Providers Date of admission: 07/02/19 09:45 Attending physician: Young Rosenthal MD Consults: 07/02/19 09:55 Consult Physician Urgent Consulting Provider: Luciano Calle Consult Reason/Comments: dka, cp Do you want consulting provider notified?: Yes Primary care physician: Brett Miller [facility] Course: this is 29 years old male with past medical history significant for diabetes mellitus type 1 insulin-dependent presents to the emergency department with the hyperglycemia felt to be related to diabetic ketoacidosis. The etiology felt to be related to noncompliance with medication patient was started on Lantus and then insulin sliding scale improve during the hospital stay was tolerating liquid and his glucose was stable at the time of the discharge drip. Patient complained of chest pain during the hospital stay which felt to be related to anxiety due to a family member passing month ago. The cardiology evaluated the patient who recommended outpatient follow-up and 2-D echo was done during the hospital stay. Patient felt stable from the medical standpoint was consult regarding medication adherence close follow-up with his primary care physician and the patient was discharged in stable condition Plan - Discharge Summary Discharge Rx Participant: No New Discharge Prescriptions: Continue Albuterol Inhaler [Ventolin Hfa Inhaler] 1 - 2 puff INHALATION RT-Q6H PRN 7 Days #1 inhaler PRN Reason: Wheezing Insulin Lispro [Admelog] See Protocol SQ AC-TID Changed Insulin Glargine [Lantus] 15 unit SQ BID #0 Discharge Medication List Albuterol Inhaler [Ventolin Hfa Inhaler] 1 - 2 puff INHALATION RT-Q6H PRN 7 Days #1 inhaler 07/22/18 [Rx] Insulin Glargine [Lantus] 15 unit SQ BID #0 07/02/19 [Rx] Insulin Lispro [Admelog] See Protocol SQ AC-TID 07/02/19 [History] Follow up Appointment(s)/Referral(s): Brett Miller MD [Primary Care Provider] - 1-2 days Discharge Disposition: HOME SELF-CARE
--- NOTE | 2019-07-03 16:45 | ECHOF ---
Referral Reason:chest pain MEASUREMENTS -------- HEIGHT: 165.1 cm WEIGHT: 70.8 kg BP: RVIDd: 2.3 cm (< 3.3) IVSd: 0.9 cm (0.6 - 1.1) LVIDd: 4.2 cm (3.9 - 5.3) LVPWd: 0.9 cm (0.6 - 1.1) IVSs: 1.3 cm LVIDs: 3.2 cm LVPWs: 1.3 cm LA Diam: 2.7 cm (2.7 - 3.8) LAESV Index (A-L): 18.06 ml/m Ao Diam: 2.3 cm (2.0 - 3.7) AV Cusp: 1.7 cm (1.5 - 2.6) LA Diam: 3.1 cm (2.7 - 3.8) MV EXCURSION: 18.482 mm (> 18.000) MV EF SLOPE: 127 mm/s (70 - 150) EPSS: 0.6 cm MV E Xu: 0.86 m/s MV DecT: 142 ms MV A Xu: 0.44 m/s MV E/A Ratio: 1.94 RAP: 5.00 mmHg RVSP: 18.11 mmHg FINDINGS -------- Sinus rhythm. This was a technically good study. LV size, wall thickness and systolic function are normal, with an EF greater than 55%. The left federica tricular size is normal. Overall left ventricular systolic function is normal with, an EF between 5 5 - 60 %. The right ventricle is normal in size. The left atrial size is normal. The right atrial size is normal. The aortic valve is trileaflet, and appears structurally normal. No aortic stenosis or regurgitation. Mild mitral regurgitation is present. Mild tricuspid regurgitation present. Right ventricular systolic pressure is normal at < 35 mmHg. There is no evidence of pulmonary hypertension. There is no pulmonic regurgitation present. The aortic root size is normal. There is no pericardial effusion. CONCLUSIONS -------- 1. Sinus rhythm. 2. This was a technically good study. 3. LV size, wall thickness and systolic function are normal, with an EF greater than 55%. 4. The left ventricular size is normal. 5. Overall left ventricular systolic function is normal with, an EF between 55 - 60 %. 6. The right ventricle is normal in size. 7. The left atrial size is normal. 8. The right atrial size is normal. 9. The aortic valve is trileaflet, and appears structurally normal. No aortic stenosis or regurgitati on. 10. Mild mitral regurgitation is present. 11. Mild tricuspid regurgitation present. 12. Right ventricular systolic pressure is normal at < 35 mmHg. 13. There is no evidence of pulmonary hypertension. 14. There is no pulmonic regurgitation present. 15. The aortic root size is normal. 16. There is no pericardial effusion. INSURANCE ACCOUNT SPECIALIST: Florencia Mena RDCS
== END 2019-07-03 15:10 | disposition home or self-care (01) ==
LOC: EC 04:34 → INTOOBSV 09:45 → 3SCARD 09:45 → 6NMEDSUR 15:39 → UNDODISIN 07-03 15:10
PROVIDERS: ADMIT Internal Medicine; ATTEND Internal Medicine
DX: E10.10 Type 1 diabetes mellitus with ketoacidosis without coma (principal); E10.43 Type 1 diabetes mellitus with diabetic autonomic (poly)neuropathy; F17.200 Nicotine dependence, unspecified, uncomplicated; F41.0 Panic disorder [episodic paroxysmal anxiety]; K21.9 Gastro-esophageal reflux disease without esophagitis; J45.909 Unspecified asthma, uncomplicated; K08.89 Other specified disorders of teeth and supporting structures; K31.84 Gastroparesis; Z79.4 Long term (current) use of insulin; Z82.5 Family history of asthma and other chronic lower respiratory diseases; Z82.49 Family history of ischemic heart disease and other diseases of the circulatory system; Z86.61 Personal history of infections of the central nervous system; Z83.3 Family history of diabetes mellitus; Z91.14 Patient's other noncompliance with medication regimen; Z90.49 Acquired absence of other specified parts of digestive tract; I45.10 Unspecified right bundle-branch block
CPT/HCPCS: 96361 ×3; 93005 ×2; 96376; 96374; 96375; 99285; 36415; 93306; 85379; 80061; 80053; 80048; 82550; 82553; 82009; 83735; 84100; 84484; 85025; 85610; 85730; 81003; 71046; G0378 ×3; J2405; J1885; J3475; 96360; 96365; 96366; 96368

== ENCOUNTER 2019-08-07 18:02 | Emergency (ER) | payer OTHER ==
[2019-08-07 18:06] VITALS: RESP 18
[2019-08-07] MEDS ORDERED: SODIUM CHLORIDE 0.9% 1,000 ML IV STA (18:21)
--- NOTE | 2019-08-07 18:30 | ED ---
General Adult HPI - General Chief complaint: Chest Pain Stated complaint: CHEST PAIN Time Seen by Provider: 08/07/19 18:06 Source: patient Mode of arrival: ambulatory Limitations: no limitations - History of Present Illness Initial comments: 29-year-old male patient with past medical history significant for type 1 diabetes, gastroparesis, and chronic vomiting presents to the emergency department today for evaluation of chest pain. Patient states the last couple days he has been having a sharp stabbing pain to the left side of his chest surrounding his heart. Denies any radiation of the pain through to his back. States he has been short of breath and nauseated with this. Also reporting dizziness. Denies any sweats. Patient states his been feeling rundown over the last several days, achy, chilled, feeling like is coming down with an upper re spiratory infection. Denies any current coughing or sputum production. Patient denies any recent rash, abdominal pain, diarrhea, constipation, back pain, numbness, tingling, dizziness, weakness, hematuria, dysuria, urinary urgency, urinary frequency, headache, visual changes, or any other complaints. - Related Data Home Medications Medication Instructions Recorded Confirmed Insulin Lispro [Admelog] See Protocol SQ AC-TID 07/02/19 07/02/19 Previous Rx's Medication Instructions Recorded Albuterol Inhaler [Ventolin Hfa 1 - 2 puff INHALATION RT-Q6H PRN 7 07/22/18 Inhaler] Days #1 inhaler Insulin Glargine [Lantus] 15 unit SQ BID #0 07/02/19 Allergies Allergy/AdvReac Type Severity Reaction Status Date / Time No Known Allergies Allergy Verified 07/02/19 10:03 Review of Systems ROS Statement: Those systems with pertinent positive or pertinent negative responses have been documented in the HPI. ROS Other: All systems not noted in ROS Statement are negative. Past Medical History Past Medical History: Asthma, Diabetes Mellitus, GERD/Reflux Additional Past Medical History / Comment(s): Other HX: IDDM type I, gastroparesis History of Any Multi-Drug Resistant Organisms: None Reported Past Surgical History: Cholecystectomy Past Anesthesia/Blood Transfusion Reactions: Postoperative Nausea & Vomiting (PONV) Additional Past Anesthesia/Blood Transfusion Reaction / Comment(s): Pt has never received blood. Past Psychological History: No Psychological Hx Reported Smoking Status: Never smoker Past Alcohol Use History: Occasional Past Drug Use History: Marijuana - Past Family History Father Family Medical History: Diabetes Mellitus, Hypertension Additional Family Medical History / Comment(s): type II diabetes. Mother Family Medical History: COPD Brother(s) Family Medical History: Diabetes Mellitus Additional Family Medical History / Comment(s): IDDM type I Sister(s) Family Medical History: No Reported History General Exam Limitations: no limitations General appearance: alert, in no apparent distress, other (Physical well- developed, well-nourished adult male patient in no acute distress. Vital signs upon presentation are temperature 97.6F, pulse 99, respirations 18, blood pressure 131/85, pulse ox 100% on room air.) Eye exam: Present: normal appearance, PERRL, EOMI. Absent: scleral icterus, conjunctival injection, periorbital swelling ENT exam: Present: normal exam, normal oropharynx, mucous membranes moist Respiratory exam: Present: normal lung sounds bilaterally. Absent: respiratory distress, wheezes, rales, rhonchi, stridor Cardiovascular Exam: Present: regular rate, normal rhythm, normal heart sounds. Absent: systolic murmur, diastolic murmur, rubs, gallop, clicks GI/Abdominal exam: Present: soft, normal bowel sounds. Absent: distended, tenderness, guarding, rebound, rigid Neurological exam: Present: alert, oriented X3, CN II-XII intact Psychiatric exam: Present: normal affect, normal mood Skin exam: Present: warm, dry, intact, normal color. Absent: rash Course Vital Signs 08/07/19 18:03 Temperature 97.6 F Pulse Rate 99 Respiratory 18 Rate Blood Pressure 131/85 O2 Sat by Pulse 100 Oximetry EKG Findings - EKG Comments: EKG Findings:: EKG obtained at 1816 shows normal sinus rhythm with a ventricular rate of 90, OR interval 136, QRS duration 98, QT 360, QTC 440. No evidence of ST elevation or depression. Medical Decision Making - Medical Decision Making 29-year-old male patient presents to the emergency department today for evaluation of left-sided chest pain. Physical examination revealed clear equal lung sounds. Pain is nonreproducible palpation. Vital signs revealed no major abdomen abnormalities. EKG showed normal sinus rhythm, no changes as compared to previous EKGs at this facility. Labs reviewed and were unremarkable. Troponin negative. Upon reevaluation patient reports improvement of symptoms. Patient symptoms are atypical for coronary artery disease. We will discharge him follow up with cardiology for outpatient stress testing. Return parameters were discussed in detail. He verbalizes understanding and agrees with this plan - Lab Data Result diagrams: 08/07/19 18:32 08/07/19 18:32 Lab Results 08/07/19 08/07/19 08/07/19 Range/Units 18:32 18:32 18:32 WBC 6.7 (3.8-10.6) k/uL RBC 4.58 (4.30-5.90) m/uL Hgb 14.0 (13.0-17.5) gm/dL Hct 42.5 (39.0-53.0) % MCV 92.7 (80.0-100.0) fL MCH 30.5 (25.0-35.0) pg MCHC 32.9 (31.0-37.0) g/dL RDW 12.8 (11.5-15.5) % Plt Count 262 (150-450) k/uL Neutrophils % 60 % Lymphocytes % 24 % Monocytes % 4 % Eosinophils % 9 % Basophils % 1 % Neutrophils # 4.0 (1.3-7.7) k/uL Lymphocytes # 1.6 (1.0-4.8) k/uL Monocytes # 0.3 (0-1.0) k/uL Eosinophils # 0.6 (0-0.7) k/uL Basophils # 0.1 (0-0.2) k/uL PT 9.9 (9.0-12.0) sec INR 0.9 (<1.2) APTT 22.3 (22.0-30.0) sec Sodium 136 L (137-145) mmol/L Potassium 4.3 (3.5-5.1) mmol/L Chloride 102 (98-107) mmol/L Carbon Dioxide 28 (22-30) mmol/L Anion Gap 6 mmol/L BUN 12 (9-20) mg/dL Creatinine 0.60 L (0.66-1.25) mg/dL Est GFR (CKD-EPI)AfAm >90 (>60 ml/min/1.73 sqM) Est GFR (CKD-EPI)NonAf >90 (>60 ml/min/1.73 sqM) Glucose 233 H (74-99) mg/dL Calcium 9.1 (8.4-10.2) mg/dL Magnesium 1.6 (1.6-2.3) mg/dL Total Bilirubin 0.6 (0.2-1.3) mg/dL AST 36 (17-59) U/L ALT 39 (4-49) U/L Alkaline Phosphatase 136 H (38-126) U/L Troponin I (0.000-0.034) ng/mL Total Protein 6.6 (6.3-8.2) g/dL Albumin 4.1 (3.5-5.0) g/dL 08/07/19 Range/Units 18:32 WBC (3.8-10.6) k/uL RBC (4.30-5.90) m/uL Hgb (13.0-17.5) gm/dL Hct (39.0-53.0) % MCV (80.0-100.0) fL MCH (25.0-35.0) pg MCHC (31.0-37.0) g/dL RDW (11.5-15.5) % Plt Count (150-450) k/uL Neutrophils % % Lymphocytes % % Monocytes % % Eosinophils % % Basophils % % Neutrophils # (1.3-7.7) k/uL Lymphocytes # (1.0-4.8) k/uL Monocytes # (0-1.0) k/uL Eosinophils # (0-0.7) k/uL Basophils # (0-0.2) k/uL PT (9.0-12.0) sec INR (<1.2) APTT (22.0-30.0) sec Sodium (137-145) mmol/L Potassium (3.5-5.1) mmol/L Chloride (98-107) mmol/L Carbon Dioxide (22-30) mmol/L Anion Gap mmol/L BUN (9-20) mg/dL Creatinine (0.66-1.25) mg/dL Est GFR (CKD-EPI)AfAm (>60 ml/min/1.73 sqM) Est GFR (CKD-EPI)NonAf (>60 ml/min/1.73 sqM) Glucose (74-99) mg/dL Calcium (8.4-10.2) mg/dL Magnesium (1.6-2.3) mg/dL Total Bilirubin (0.2-1.3) mg/dL AST (17-59) U/L ALT (4-49) U/L Alkaline Phosphatase (38-126) U/L Troponin I <0.012 (0.000-0.034) ng/mL Total Protein (6.3-8.2) g/dL Albumin (3.5-5.0) g/dL - Radiology Data Radiology results: report reviewed, image reviewed Two-view x-ray of the chest is obtained. Report was reviewed in its entirety. Impression by Dr. George shows normal chest. No change. Disposition Clinical Impression: Chest pain Disposition: HOME SELF-CARE Condition: Good Instructions (If sedation given, give patient instructions): Chest Pain (ED) Additional Instructions: Increase fluids. Rest. Follow-up with your primary care physician for recheck in 1-2 days. Follow up with cardiology for stress testing. Return to the emergency department immediately for any new, worsening, or concerning symptoms. Is patient prescribed a controlled substance at d/c from ED?: No Referrals: Brett Miller MD [Primary Care Provider] - 1-2 days Dav Hayes MD [STAFF PHYSICIAN] - 1-2 days Time of Disposition: 20:20
[2019-08-07 18:56] LABS: Basophils # (A) 0.1 k/uL (0-0.2); Basophils % (A) 1 %; Eosinophils # (A) 0.6 k/uL (0-0.7); Eosinophils % (A) 9 %; HCT 42.5 % (39.0-53.0); Lymphocytes # (A) 1.6 k/uL (1.0-4.8); Lymphocytes % (A) 24 %; MCH 30.5 pg (25.0-35.0); MCHC 32.9 g/dL (31.0-37.0); MCV 92.7 fL (80.0-100.0); Mean Platelet Volume 7.3; Monocytes # (A) 0.3 k/uL (0-1.0); Monocytes % (A) 4 %; Neutrophils % (A) 60 %; Platelet Count 262 k/uL (150-450); RBC 4.58 m/uL (4.30-5.90); RDW 12.8 % (11.5-15.5); WBC 6.7 k/uL (3.8-10.6)
--- NOTE | 2019-08-07 19:04 | XR ---
EXAMINATION TYPE: XR chest 2V DATE OF EXAM: 08/07/2019 COMPARISON: 07/02/2019 HISTORY: Chest pain TECHNIQUE: FINDINGS: Heart and mediastinum are normal. Lungs are clear. Diaphragm is normal. Bony thorax appears normal. IMPRESSION: Normal chest. No change.
[2019-08-07 19:06] LABS: ALT 39 U/L (4-49); AST 36 U/L (17-59); African American GFR (CKD) >90 (>60 ml/min/1.73 sqM); Albumin 4.1 g/dL (3.5-5.0); Alkaline Phosphatase 136 U/L (38-126); Anion Gap 6 mmol/L; Blood Urea Nitrogen 12 mg/dL (9-20); Calcium 9.1 mg/dL (8.4-10.2); Carbon Dioxide 28 mmol/L (22-30); Chloride 102 mmol/L (98-107); Glucose 233 mg/dL (74-99); INR 0.9 (<1.2); Magnesium 1.6 mg/dL (1.6-2.3); Non-African American GFR(CKD) >90 (>60 ml/min/1.73 sqM); Partial Thromboplastin Time 22.3 sec (22.0-30.0); Potassium 4.3 mmol/L (3.5-5.1); Prothrombin Time 9.9 sec (9.0-12.0); Sodium 136 mmol/L (137-145); Total Bilirubin 0.6 mg/dL (0.2-1.3); Total Protein 6.6 g/dL (6.3-8.2)
[2019-08-07 20:43] VITALS: BP 125/82; PULSE 85; TEMP 97.9
== END 2019-08-07 20:43 | disposition home or self-care (01) ==
LOC: EC 18:02
DX: R07.89 Other chest pain (principal); R42 Dizziness and giddiness; M54.9 Dorsalgia, unspecified; R06.02 Shortness of breath; R11.0 Nausea; R68.83 Chills (without fever); E10.43 Type 1 diabetes mellitus with diabetic autonomic (poly)neuropathy; K31.84 Gastroparesis; Z79.4 Long term (current) use of insulin; Z82.49 Family history of ischemic heart disease and other diseases of the circulatory system; Z90.49 Acquired absence of other specified parts of digestive tract
CPT/HCPCS: 36415; 71046; 80053; 83735; 84484; 85025; 85610; 85730; 96360; 99285

== ENCOUNTER 2019-09-01 08:34 | Emergency (ER) | payer OTHER ==
[2019-09-01 08:38] VITALS: RESP 18
[2019-09-01] MEDS ORDERED: KETOROLAC 30 MG/ML 1 ML VIAL IVP STA (08:57)
[2019-09-01] MEDS ORDERED: ONDANSETRON 4 MG/2 ML VIAL IVP STA (08:57)
[2019-09-01] MEDS ORDERED: SODIUM CHLORIDE 0.9% 2,000 ML IV STA (08:57)
--- NOTE | 2019-09-01 09:19 | XR ---
EXAMINATION TYPE: XR KUB DATE OF EXAM: 09/01/2019 COMPARISON: 05/30/2019 HISTORY: Abdomen pain TECHNIQUE: AP upright abdomen FINDINGS: Psoas margins are normal. Normal colonic bowel gas is present. Organomegaly is not present. No suspicious air-fluid levels or differential air-fluid levels are present. Post cholecystectomy cl ips are present. The osseous structures are unremarkable. IMPRESSION: 1. Normal abdomen
[2019-09-01 09:21] LABS: Basophils # (A) 0.1 k/uL (0-0.2); Basophils % (A) 1 %; Eosinophils # (A) 0.6 k/uL (0-0.7); Eosinophils % (A) 10 %; HCT 43.8 % (39.0-53.0); Lymphocytes # (A) 1.4 k/uL (1.0-4.8); Lymphocytes % (A) 24 %; MCHC 34.2 g/dL (31.0-37.0); MCV 90.6 fL (80.0-100.0); Mean Platelet Volume 7.8; Monocytes # (A) 0.2 k/uL (0-1.0); Monocytes % (A) 4 %; Neutrophils # (A) 3.4 k/uL (1.3-7.7); Neutrophils % (A) 59 %; Platelet Count 207 k/uL (150-450); RBC 4.83 m/uL (4.30-5.90); RDW 12.9 % (11.5-15.5); WBC 5.7 k/uL (3.8-10.6)
--- NOTE | 2019-09-01 09:24 | ED ---
General Adult HPI - General Chief complaint: Abdominal Pain Stated complaint: nausea Time Seen by Provider: 09/01/19 08:40 Source: patient, RN notes reviewed Mode of arrival: ambulatory Limitations: no limitations - History of Present Illness Initial comments: 29-year-old male with a past medical history of GERD, asthma, diabetes mellitus, gastroparesis, IDDM presents to the emergency determine for nausea vomiting. Patient states he has had nausea vomiting for 2 days. States this is similar to previous episodes of gastroparesis exacerbations. Patient states he has gastroparesis secondary to type 1 diabetes. Patient states that he could not stop vomiting this morning. States his glucose was 197 at home. He is denying any significant abdominal pain. Currently rates the pain as a 2 out of 10 in the epigastric area.Patient has no other complaints at this time including shortness of breath, chest pain, headache, or visual changes. - Related Data Home Medications Medication Instructions Recorded Confirmed Insulin Lispro [Admelog] See Protocol SQ AC-TID 07/02/19 09/01/19 Insulin Glargine,Hum.rec.anlog 30 unit SQ HS 09/01/19 09/01/19 [Basaglar Kwikpen U-100] Allergies Allergy/AdvReac Type Severity Reaction Status Date / Time No Known Allergies Allergy Verified 09/01/19 10:11 Review of Systems ROS Statement: Those systems with pertinent positive or pertinent negative responses have been documented in the HPI. ROS Other: All systems not noted in ROS Statement are negative. Past Medical History Past Medical History: Asthma, Diabetes Mellitus, GERD/Reflux Additional Past Medical History / Comment(s): Other HX: IDDM type I, gastroparesis History of Any Multi-Drug Resistant Organisms: None Reported Past Surgical History: Cholecystectomy Past Anesthesia/Blood Transfusion Reactions: Postoperative Nausea & Vomiting (PONV) Additional Past Anesthesia/Blood Transfusion Reaction / Comment(s): Pt has never received blood. Past Psychological History: No Psychological Hx Reported Smoking Status: Never smoker Past Alcohol Use History: None Reported, Occasional Past Drug Use History: Marijuana - Past Family History Father Family Medical History: Diabetes Mellitus, Hypertension Additional Family Medical History / Comment(s): type II diabetes. Mother Family Medical History: COPD Brother(s) Family Medical History: Diabetes Mellitus Additional Family Medical History / Comment(s): IDDM type I Sister(s) Family Medical History: No Reported History General Exam Limitations: no limitations General appearance: alert, in no apparent distress Head exam: Present: atraumatic, normocephalic, normal inspection Eye exam: Present: normal appearance, PERRL, EOMI. Absent: scleral icterus, conjunctival injection, periorbital swelling ENT exam: Present: normal exam, mucous membranes moist Neck exam: Present: normal inspection, full ROM. Absent: tenderness, mening ismus, lymphadenopathy Respiratory exam: Present: normal lung sounds bilaterally. Absent: respiratory distress, wheezes, rales, rhonchi, stridor Cardiovascular Exam: Present: regular rate, normal rhythm, normal heart sounds. Absent: systolic murmur, diastolic murmur, rubs, gallop, clicks GI/Abdominal exam: Present: soft, tenderness (Mild epigastric tenderness. No guarding present. No right upper quadrant tenderness, negative Springer sign. No lower abdominal tenderness.), normal bowel sounds. Absent: distended, guarding, rebound, rigid Neurological exam: Present: alert Course Vital Signs 09/01/19 09/01/19 09/01/19 08:37 10:00 10:55 Temperature 98 F Pulse Rate 93 94 91 Respiratory 18 18 18 Rate Blood Pressure 132/84 127/67 129/74 O2 Sat by Pulse 99 Oximetry 09/01/19 11:56 Temperature 97.1 F L Pulse Rate 96 Respiratory 18 Rate Blood Pressure 117/77 O2 Sat by Pulse 99 Oximetry Medical Decision Making - Medical Decision Making Patient was seen and evaluated on presentation. Vitals are stable. HPI and physical exam as documented. No significant abdominal tenderness aside from minimal epigastric tenderness. No vomiting here in the emergency department. CBC is unremarkable. CMP shows minimal hyponatremia, given 2 L of normal s [place]. Hyperglycemia noted with a glucose of 338. This did improve to 293 after 2 L of fluids. Anion gap is 8 and acetone is negative. No ketones in the urine. No evidence of DKA at this time. Patient was given for IV of insulin. X-ray KUB shows a normal abdomen. He will be discharged home to follow up with primary care. He will return with any worsening symptoms.I discussed this case with attending Dr. Post who agrees with this assessment and treatment plan. - Lab Data Result diagrams: 09/01/19 09:00 09/01/19 09:00 Lab Results 09/01/19 09/01/19 09/01/19 Range/Units 09:00 09:00 09:00 WBC 5.7 (3.8-10.6) k/uL RBC 4.83 (4.30-5.90) m/uL Hgb 15.0 (13.0-17.5) gm/dL Hct 43.8 (39.0-53.0) % MCV 90.6 (80.0-100.0) fL MCH 31.0 (25.0-35.0) pg MCHC 34.2 (31.0-37.0) g/dL RDW 12.9 (11.5-15.5) % Plt Count 207 (150-450) k/uL Neutrophils % 59 % Lymphocytes % 24 % Monocytes % 4 % Eosinophils % 10 % Basophils % 1 % Neutrophils # 3.4 (1.3-7.7) k/uL Lymphocytes # 1.4 (1.0-4.8) k/uL Monocytes # 0.2 (0-1.0) k/uL Eosinophils # 0.6 (0-0.7) k/uL Basophils # 0.1 (0-0.2) k/uL Sodium 133 L (137-145) mmol/L Potassium 4.4 (3.5-5.1) mmol/L Chloride 98 (98-107) mmol/L Carbon Dioxide 27 (22-30) mmol/L Anion Gap 8 mmol/L BUN 16 (9-20) mg/dL Creatinine 0.57 L (0.66-1.25) mg/dL Est GFR (CKD-EPI)AfAm >90 (>60 ml/min/1.73 sqM) Est GFR (CKD-EPI)NonAf >90 (>60 ml/min/1.73 sqM) Glucose 338 H (74-99) mg/dL POC Glucose (mg/dL) (75-99) mg/dL POC Glu Plate Molder ID Calcium 9.0 (8.4-10.2) mg/dL Total Bilirubin 0.8 (0.2-1.3) mg/dL AST 33 (17-59) U/L ALT 27 (4-49) U/L Alkaline Phosphatase 162 H (38-126) U/L Total Protein 6.7 (6.3-8.2) g/dL Albumin 4.3 (3.5-5.0) g/dL Amylase 50 (30-110) U/L Lipase 43 (23-300) U/L Urine Color Urine Appearance (Clear) Urine pH (5.0-8.0) Ur Specific [place] (1.001-1.035) Urine Protein (Negative) Urine Glucose (UA) (Negative) Urine Ketones (Negative) Urine Blood (Negative) Urine Nitrite (Negative) Urine Bilirubin (Negative) Urine Urobilinogen (<2.0) mg/dL Ur Leukocyte Esterase (Negative) Acetone, Qual Negative (Negative) 09/01/19 09/01/19 09/01/19 Range/Units 09:49 10:53 11:42 WBC (3.8-10.6) k/uL RBC (4.30-5.90) m/uL Hgb (13.0-17.5) gm/dL Hct (39.0-53.0) % MCV (80.0-100.0) fL MCH (25.0-35.0) pg MCHC (31.0-37.0) g/dL RDW (11.5-15.5) % Plt Count (150-450) k/uL Neutrophils % % Lymphocytes % % Monocytes % % Eosinophils % % Basophils % % Neutrophils # (1.3-7.7) k/uL Lymphocytes # (1.0-4.8) k/uL Monocytes # (0-1.0) k/uL Eosinophils # (0-0.7) k/uL Basophils # (0-0.2) k/uL Sodium (137-145) mmol/L Potassium (3.5-5.1) mmol/L Chloride (98-107) mmol/L Carbon Dioxide (22-30) mmol/L Anion Gap mmol/L BUN (9-20) mg/dL Creatinine (0.66-1.25) mg/dL Est GFR (CKD-EPI)AfAm (>60 ml/min/1.73 sqM) Est GFR (CKD-EPI)NonAf (>60 ml/min/1.73 sqM) Glucose (74-99) mg/dL POC Glucose (mg/dL) 293 H 275 H (75-99) mg/dL POC Glu Plate Molder ID Radha Stevens Kathryn Calcium (8.4-10.2) mg/dL Total Bilirubin (0.2-1.3) mg/dL AST (17-59) U/L ALT (4-49) U/L Alkaline Phosphatase (38-126) U/L Total Protein (6.3-8.2) g/dL Albumin (3.5-5.0) g/dL Amylase (30-110) U/L Lipase (23-300) U/L Urine Color Yellow Urine Appearance Clear (Clear) Urine pH 7.0 (5.0-8.0) Ur Specific [place] 1.010 (1.001-1.035) Urine Protein Negative (Negative) Urine Glucose (UA) 3+ H (Negative) Urine Ketones Negative (Negative) Urine Blood Negative (Negative) Urine Nitrite Negative (Negative) Urine Bilirubin Negative (Negative) Urine Urobilinogen <2.0 (<2.0) mg/dL Ur Leukocyte Esterase Negative (Negative) Acetone, Qual (Negative) Disposition Clinical Impression: Hyperglycemia, Nausea & vomiting Disposition: HOME SELF-CARE Condition: Good Instructions (If sedation given, give patient instructions): Acute Nausea and Vomiting (ED) Additional Instructions: Please follow up with primary care in 1-2 days. Return to the emergency department if you have any worsening symptoms. Is patient prescribed a controlled substance at d/c from ED?: No Referrals: Brett Miller MD [Primary Care Provider] - 1-2 days Time of Disposition: 11:16
[2019-09-01 09:34] LABS: ALT 27 U/L (4-49); AST 33 U/L (17-59); African American GFR (CKD) >90 (>60 ml/min/1.73 sqM); Albumin 4.3 g/dL (3.5-5.0); Alkaline Phosphatase 162 U/L (38-126); Amylase 50 U/L (30-110); Anion Gap 8 mmol/L; Blood Urea Nitrogen 16 mg/dL (9-20); Carbon Dioxide 27 mmol/L (22-30); Chloride 98 mmol/L (98-107); Glucose 338 mg/dL (74-99); Non-African American GFR(CKD) >90 (>60 ml/min/1.73 sqM); Potassium 4.4 mmol/L (3.5-5.1); Sodium 133 mmol/L (137-145); Total Bilirubin 0.8 mg/dL (0.2-1.3); Total Protein 6.7 g/dL (6.3-8.2)
[2019-09-01 10:12] LABS: Appearance,Urine Clear (Clear); Color,Urine Yellow; Glucose,Urine (UA) 3+ (Negative); Protein,Urine Negative (Negative)
[2019-09-01 10:13] LABS: Bilirubin,Urine Negative (Negative); Blood,Urine Negative (Negative); Ketones,Urine Negative (Negative); Leukocyte Esterase,Urine Negative (Negative); Nitrite,Urine Negative (Negative); Urobilinogen,Urine <2.0 mg/dL (<2.0)
[2019-09-01 10:56] LABS: Glucose,Whole Blood 293 mg/dL (75-99)
[2019-09-01] MEDS ORDERED: INSULIN REGULAR 100 UNIT/ML VIAL IV STA ×2 (11:02→11:10)
[2019-09-01 11:44] LABS: Glucose,Whole Blood 275 mg/dL (75-99)
[2019-09-01 11:56] VITALS: BP 117/77; PULSE 96; TEMP 97.1
== END 2019-09-01 11:57 | disposition home or self-care (01) ==
LOC: EC 08:34
DX: E10.65 Type 1 diabetes mellitus with hyperglycemia (principal); E87.1 Hypo-osmolality and hyponatremia; E10.43 Type 1 diabetes mellitus with diabetic autonomic (poly)neuropathy; K31.84 Gastroparesis; Z79.4 Long term (current) use of insulin; Z87.19 Personal history of other diseases of the digestive system; Z90.49 Acquired absence of other specified parts of digestive tract; Z83.3 Family history of diabetes mellitus; Z53.8 Procedure and treatment not carried out for other reasons
CPT/HCPCS: 36415; 80053; 82150; 82009; 83690; 85025; 81003; 74018; 99284; 96374; 96375; 96361 ×2; J2405; J1885

== ENCOUNTER 2019-09-15 08:38 | Emergency (ER) | payer OTHER ==
[2019-09-15 08:40] VITALS: TEMP 98.4
[2019-09-15] MEDS ORDERED: ONDANSETRON 4 MG/2 ML VIAL IVP STA (08:51)
[2019-09-15] MEDS ORDERED: SODIUM CHLORIDE 0.9% 2,000 ML IV STA (08:51)
[2019-09-15] MEDS ORDERED: PANTOPRAZOLE 40 MG/10 ML VIAL IVP STA (08:51)
--- NOTE | 2019-09-15 08:59 | ED ---
General Adult HPI - General Chief complaint: Nausea/Vomiting/Diarrhea Stated complaint: Vomiting Time Seen by Provider: 09/15/19 08:47 Source: patient, RN notes reviewed Mode of arrival: ambulatory Limitations: no limitations - History of Present Illness Initial comments: This a 21-year-old male presents emergency Department chief complaint of nausea vomiting. Patient is a type I diabetic on insulin injections. Patient states that he has a history of gastroparesis. Patient states it does not have any antiemetics at home. Patient states is normally treated with Zofran which is helps. Patient states that he started vomiting early this morning. Denies any fevers chills no URI symptoms. No sick contacts no diarrhea. Patient states his blood sugar was 237 this morning. Patient states that he had no symptoms yesterday. - Related Data Home Medications Medication Instructions Recorded Confirmed Insulin Lispro [Admelog] See Protocol SQ AC-TID 07/02/19 09/01/19 Insulin Glargine,Hum.rec.anlog 30 unit SQ HS 09/01/19 09/01/19 [Basaglar Kwikpen U-100] Previous Rx's Medication Instructions Recorded Ondansetron Odt [Zofran Odt] 4 mg PO Q8HR PRN #14 tab 09/15/19 Allergies Allergy/AdvReac Type Severity Reaction Status Date / Time No Known Allergies Allergy Verified 09/15/19 08:41 Review of Systems ROS Statement: Those systems with pertinent positive or pertinent negative responses have been documented in the HPI. ROS Other: All systems not noted in ROS Statement are negative. Past Medical History Past Medical History: Asthma, Diabetes Mellitus, GERD/Reflux Additional Past Medical History / Comment(s): Other HX: IDDM type I, gastroparesis History of Any Multi-Drug Resistant Organisms: None Reported Past Surgical History: Cholecystectomy Past Anesthesia/Blood Transfusion Reactions: Postoperative Nausea & Vomiting (PONV) Additional Past Anesthesia/Blood Transfusion Reaction / Comment(s): Pt has never received blood. Past Psychological History: No Psychological Hx Reported Smoking Status: Never smoker Past Alcohol Use History: None Reported, Occasional Past Drug Use History: Marijuana - Past Family History Father Family Medical History: Diabetes Mellitus, Hypertension Additional Family Medical History / Comment(s): type II diabetes. Mother Family Medical History: COPD Brother(s) Family Medical History: Diabetes Mellitus Additional Family Medical History / Comment(s): IDDM type I Sister(s) Family Medical History: No Reported History General Exam Limitations: no limitations General appearance: alert, in no apparent distress Head exam: Present: atraumatic, normocephalic, normal inspection Eye exam: Present: normal appearance, PERRL, EOMI. Absent: scleral icterus, conjunctival injection, periorbital swelling ENT exam: Present: normal exam, normal oropharynx, mucous membranes moist, TM's normal bilaterally Neck exam: Present: normal inspection, full ROM. Absent: tenderness, meningismus, lymphadenopathy Respiratory exam: Present: normal lung sounds bilaterally. Absent: respiratory distress, wheezes, rales, rhonchi, stridor Cardiovascular Exam: Present: regular rate, normal rhythm, normal heart sounds. Absent: systolic murmur, diastolic murmur, rubs, gallop, clicks GI/Abdominal exam: Present: soft, tenderness (Minimal left upper quadrant), normal bowel sounds. Absent: distended, guarding, rebound, rigid Back exam: Absent: CVA tenderness (R), CVA tenderness (L) Course Vital Signs 09/15/19 08:38 Temperature 98.4 F Pulse Rate 62 Respiratory 16 Rate Blood Pressure 128/86 O2 Sat by Pulse 99 Oximetry Medical Decision Making - Medical Decision Making 21-year-old male presented for nausea vomiting. Patient has history of gastroparesis. Patient's lab work is essentially unremarkable than mild hyperglycemia. Patient feels greatly improved after IV fluid hydration, antiemetics. Patient's abdomen soft nontender increased follow-up with his PCP and return for any worsening symptoms. - Lab Data Result diagrams: 09/15/19 09:05 09/15/19 09:05 Lab Results 09/15/19 09/15/19 09/15/19 Range/Units 09:05 09:05 09:05 WBC 6.0 (3.8-10.6) k/uL RBC 4.77 (4.30-5.90) m/uL Hgb 14.7 (13.0-17.5) gm/dL Hct 43.6 (39.0-53.0) % MCV 91.4 (80.0-100.0) fL MCH 30.8 (25.0-35.0) pg MCHC 33.7 (31.0-37.0) g/dL RDW 12.9 (11.5-15.5) % Plt Count 221 (150-450) k/uL Neutrophils % 59 % Lymphocytes % 26 % Monocytes % 4 % Eosinophils % 9 % Basophils % 1 % Neutrophils # 3.5 (1.3-7.7) k/uL Lymphocytes # 1.6 (1.0-4.8) k/uL Monocytes # 0.2 (0-1.0) k/uL Eosinophils # 0.5 (0-0.7) k/uL Basophils # 0.1 (0-0.2) k/uL VBG pH (7.31-7.41) VBG pCO2 (37-51) mmHg VBG HCO3 (24-28) mmol/L Sodium 137 (137-145) mmol/L Potassium 4.1 (3.5-5.1) mmol/L Chloride 101 (98-107) mmol/L Carbon Dioxide 27 (22-30) mmol/L Anion Gap 9 mmol/L BUN 15 (9-20) mg/dL Creatinine 0.58 L (0.66-1.25) mg/dL Est GFR (CKD-EPI)AfAm >90 (>60 ml/min/1.73 sqM) Est GFR (CKD-EPI)NonAf >90 (>60 ml/min/1.73 sqM) Glucose 192 H (74-99) mg/dL Calcium 9.1 (8.4-10.2) mg/dL Total Bilirubin 0.5 (0.2-1.3) mg/dL AST 28 (17-59) U/L ALT 24 (4-49) U/L Alkaline Phosphatase 142 H (38-126) U/L Total Protein 6.6 (6.3-8.2) g/dL Albumin 4.2 (3.5-5.0) g/dL Amylase 45 (30-110) U/L Lipase 115 (23-300) U/L Urine Color Yellow Urine Appearance Clear (Clear) Urine pH 6.5 (5.0-8.0) Ur Specific [place] 1.026 (1.001-1.035) Urine Protein Negative (Negative) Urine Glucose (UA) 4+ H (Negative) Urine Ketones Negative (Negative) Urine Blood Negative (Negative) Urine Nitrite Negative (Negative) Urine Bilirubin Negative (Negative) Urine Urobilinogen 2.0 (<2.0) mg/dL Ur Leukocyte Esterase Negative (Negative) 09/15/19 Range/Units 09:05 WBC (3.8-10.6) k/uL RBC (4.30-5.90) m/uL Hgb (13.0-17.5) gm/dL Hct (39.0-53.0) % MCV (80.0-100.0) fL MCH (25.0-35.0) pg MCHC (31.0-37.0) g/dL RDW (11.5-15.5) % Plt Count (150-450) k/uL Neutrophils % % Lymphocytes % % Monocytes % % Eosinophils % % Basophils % % Neutrophils # (1.3-7.7) k/uL Lymphocytes # (1.0-4.8) k/uL Monocytes # (0-1.0) k/uL Eosinophils # (0-0.7) k/uL Basophils # (0-0.2) k/uL VBG pH 7.41 (7.31-7.41) VBG pCO2 44 (37-51) mmHg VBG HCO3 28 (24-28) mmol/L Sodium (137-145) mmol/L Potassium (3.5-5.1) mmol/L Chloride (98-107) mmol/L Carbon Dioxide (22-30) mmol/L Anion Gap mmol/L BUN (9-20) mg/dL Creatinine (0.66-1.25) mg/dL Est GFR (CKD-EPI)AfAm (>60 ml/min/1.73 sqM) Est GFR (CKD-EPI)NonAf (>60 ml/min/1.73 sqM) Glucose (74-99) mg/dL Calcium (8.4-10.2) mg/dL Total Bilirubin (0.2-1.3) mg/dL AST (17-59) U/L ALT (4-49) U/L Alkaline Phosphatase (38-126) U/L Total Protein (6.3-8.2) g/dL Albumin (3.5-5.0) g/dL Amylase (30-110) U/L Lipase (23-300) U/L Urine Color Urine Appearance (Clear) Urine pH (5.0-8.0) Ur Specific [place] (1.001-1.035) Urine Protein (Negative) Urine Glucose (UA) (Negative) Urine Ketones (Negative) Urine Blood (Negative) Urine Nitrite (Negative) Urine Bilirubin (Negative) Urine Urobilinogen (<2.0) mg/dL Ur Leukocyte Esterase (Negative) Disposition Clinical Impression: Nausea & vomiting, Diabetes mellitus type 1 Disposition: HOME SELF-CARE Condition: Stable Instructions (If sedation given, give patient instructions): Acute Nausea and Vomiting (ED) Additional Instructions: Please return to the Emergency Department if symptoms worsen or any other concerns. Prescriptions: Ondansetron Odt [Zofran Odt] 4 mg PO Q8HR PRN #14 tab PRN Reason: Nausea Is patient prescribed a controlled substance at d/c from ED?: No Referrals: Brett Miller MD [Primary Care Provider] - 1-2 days Time of Disposition: 10:12
[2019-09-15 09:23] LABS: Appearance,Urine Clear (Clear); Bilirubin,Urine Negative (Negative); Blood,Urine Negative (Negative); Color,Urine Yellow; Glucose,Urine (UA) 4+ (Negative); Ketones,Urine Negative (Negative); Leukocyte Esterase,Urine Negative (Negative); Nitrite,Urine Negative (Negative); PH, Urine 6.5 (5.0-8.0); Protein,Urine Negative (Negative); Specific Gravity,Urine 1.026 (1.001-1.035); VBG PH 7.41 (7.31-7.41)
[2019-09-15 09:29] LABS: Basophils # (A) 0.1 k/uL (0-0.2); Basophils % (A) 1 %; Eosinophils # (A) 0.5 k/uL (0-0.7); Eosinophils % (A) 9 %; HCT 43.6 % (39.0-53.0); HGB 14.7 gm/dL (13.0-17.5); Lymphocytes # (A) 1.6 k/uL (1.0-4.8); Lymphocytes % (A) 26 %; MCH 30.8 pg (25.0-35.0); MCHC 33.7 g/dL (31.0-37.0); MCV 91.4 fL (80.0-100.0); Mean Platelet Volume 7.8; Monocytes # (A) 0.2 k/uL (0-1.0); Monocytes % (A) 4 %; Neutrophils # (A) 3.5 k/uL (1.3-7.7); Neutrophils % (A) 59 %; Platelet Count 221 k/uL (150-450); RBC 4.77 m/uL (4.30-5.90); RDW 12.9 % (11.5-15.5)
[2019-09-15 09:34] LABS: ALT 24 U/L (4-49); AST 28 U/L (17-59); African American GFR (CKD) >90 (>60 ml/min/1.73 sqM); Albumin 4.2 g/dL (3.5-5.0); Alkaline Phosphatase 142 U/L (38-126); Amylase 45 U/L (30-110); Anion Gap 9 mmol/L; Blood Urea Nitrogen 15 mg/dL (9-20); Calcium 9.1 mg/dL (8.4-10.2); Carbon Dioxide 27 mmol/L (22-30); Chloride 101 mmol/L (98-107); Glucose 192 mg/dL (74-99); Non-African American GFR(CKD) >90 (>60 ml/min/1.73 sqM); Potassium 4.1 mmol/L (3.5-5.1); Sodium 137 mmol/L (137-145); Total Bilirubin 0.5 mg/dL (0.2-1.3); Total Protein 6.6 g/dL (6.3-8.2)
[2019-09-15 10:43] VITALS: BP 125/71; PULSE 83; RESP 18
== END 2019-09-15 10:57 | disposition home or self-care (01) ==
LOC: EC 08:38
DX: E10.65 Type 1 diabetes mellitus with hyperglycemia (principal); R11.2 Nausea with vomiting, unspecified; Z79.4 Long term (current) use of insulin; Z87.19 Personal history of other diseases of the digestive system; Z90.49 Acquired absence of other specified parts of digestive tract
CPT/HCPCS: 36415; 80053; 82150; 82803; 82009; 83605; 83690; 85025; 81003; 99284; 96374; 96375; 96361 ×2; J2405; C9113

== ENCOUNTER 2019-10-14 07:46 | Emergency (ER) | payer OTHER ==
[2019-10-14 07:53] VITALS: RESP 18
[2019-10-14] MEDS ORDERED: ONDANSETRON 4 MG/2 ML VIAL IVP STA (08:01)
[2019-10-14] MEDS ORDERED: SODIUM CHLORIDE 0.9% 1,000 ML IV ONE (08:01)
--- NOTE | 2019-10-14 08:06 | ED ---
General Adult HPI - General Chief complaint: Nausea/Vomiting/Diarrhea Stated complaint: nausea Time Seen by Provider: 10/14/19 07:50 Source: patient, RN notes reviewed, old records reviewed Mode of arrival: ambulatory Limitations: no limitations - History of Present Illness Initial comments: This is a 29-year-old male who presents emergency Department with a past medical history of diabetes. Patient states he comes in with a three-day history of nausea vomiting. Patient states this happens quite often to home and has been happening on and off ever since she's had his gallbladder taken out years ago. Patient states he has no diarrhea. Patient states he has a little bit of right upper quadrant abdominal pain but not bad. Patient denies any chest pain difficulty breathing shortness of breath per patient denies any fever chills or cough. Patient denies any other symptoms at this time. - Related Data Home Medications Medication Instructions Recorded Confirmed Insulin Lispro [Admelog] See Protocol SQ AC-TID 07/02/19 10/14/19 Insulin Glargine,Hum.rec.anlog 18 unit SQ HS 09/01/19 10/14/19 [Basaglar Kwikpen U-100] Previous Rx's Medication Instructions Recorded Ondansetron Odt [Zofran Odt] 4 mg PO Q8HR PRN #14 tab 09/15/19 Allergies Allergy/AdvReac Type Severity Reaction Status Date / Time No Known Allergies Allergy Verified 10/14/19 08:32 Review of Systems ROS Statement: Those systems with pertinent positive or pertinent negative responses have been documented in the HPI. ROS Other: All systems not noted in ROS Statement are negative. Past Medical History Past Medical History: Asthma, Diabetes Mellitus, GERD/Reflux Additional Past Medical History / Comment(s): Other HX: IDDM type I, gastroparesis History of Any Multi-Drug Resistant Organisms: None Reported Past Surgical History: Cholecystectomy Past Anesthesia/Blood Transfusion Reactions: Postoperative Nausea & Vomiting (PONV) Additional Past Anesthesia/Blood Transfusion Reaction / Comment(s): Pt has never received blood. Past Psychological History: No Psychological Hx Reported Smoking Status: Never smoker Past Alcohol Use History: Occasional Past Drug Use History: Marijuana - Past Family History Father Family Medical History: Diabetes Mellitus, Hypertension Additional Family Medical History / Comment(s): type II diabetes. Mother Family Medical History: COPD Brother(s) Family Medical History: Diabetes Mellitus Additional Family Medical History / Comment(s): IDDM type I Sister(s) Family Medical History: No Reported History General Exam - General Exam Comments Initial Comments: GENERAL: Patient is well-developed and well-nourished. Patient is nontoxic and well- hydrated and is in mild distress. ENT: Neck is soft and supple. No significant lymphadenopathy is noted. Oropharynx is clear. Moist mucous membranes. Neck has full range of motion without eliciting any pain. EYES: The sclera were anicteric and conjunctiva were pink and moist. Extraocular movements were intact and pupils were equal round and reactive to light. Eyelids were unremarkable. PULMONARY: Unlabored respirations. Good breath sounds bilaterally. No audible rales rhonchi or wheezing was noted. CARDIOVASCULAR: There is a regular rate and rhythm without any murmurs gallops or rubs. ABDOMEN: Soft and nontender with normal bowel sounds. No palpable organomegaly was noted. There is no palpable pulsatile mass. SKIN: Skin is clear with no lesions or rashes and otherwise unremarkable. NEUROLOGIC: Patient is alert and oriented x3. Cranial nerves II through XII are grossly intact. Motor and sensory are also intact. Normal speech, volume and content. Symmetrical smile. MUSCULOSKELETAL: Normal extremities with adequate strength and full range of motion. LYMPHATICS: No significant lymphadenopathy is noted PSYCHIATRIC: Normal psychiatric evaluation. Limitations: no limitations Course Vital Signs 10/14/19 07:50 Temperature 98.0 F Pulse Rate 72 Respiratory 18 Rate Blood Pressure 122/81 O2 Sat by Pulse 99 Oximetry Medical Decision Making - Medical Decision Making I went back into the room to reevaluate the patient he stated he was feeling considerably better want to be discharged home. Patient states take his insulin as scheduled at home today. - Lab Data Result diagrams: 10/14/19 08:15 10/14/19 08:15 Lab Results 10/14/19 10/14/19 Range/Units 08:15 08:15 WBC 5.8 (3.8-10.6) k/uL RBC 4.68 (4.30-5.90) m/uL Hgb 14.5 (13.0-17.5) gm/dL Hct 42.8 (39.0-53.0) % MCV 91.5 (80.0-100.0) fL MCH 31.0 (25.0-35.0) pg MCHC 33.9 (31.0-37.0) g/dL RDW 12.7 (11.5-15.5) % Plt Count 198 (150-450) k/uL Neutrophils % 59 % Lymphocytes % 24 % Monocytes % 4 % Eosinophils % 9 % Basophils % 1 % Neutrophils # 3.4 (1.3-7.7) k/uL Lymphocytes # 1.4 (1.0-4.8) k/uL Monocytes # 0.2 (0-1.0) k/uL Eosinophils # 0.5 (0-0.7) k/uL Basophils # 0.1 (0-0.2) k/uL Sodium 133 L (137-145) mmol/L Potassium 4.6 (3.5-5.1) mmol/L Chloride 100 (98-107) mmol/L Carbon Dioxide 27 (22-30) mmol/L Anion Gap 6 mmol/L BUN 15 (9-20) mg/dL Creatinine 0.64 L (0.66-1.25) mg/dL Est GFR (CKD-EPI)AfAm >90 (>60 ml/min/1.73 sqM) Est GFR (CKD-EPI)NonAf >90 (>60 ml/min/1.73 sqM) Glucose 339 H (74-99) mg/dL Calcium 8.7 (8.4-10.2) mg/dL Total Bilirubin 0.5 (0.2-1.3) mg/dL AST 26 (17-59) U/L ALT 24 (4-49) U/L Alkaline Phosphatase 138 H (38-126) U/L Total Protein 6.1 L (6.3-8.2) g/dL Albumin 3.8 (3.5-5.0) g/dL Acetone, Qual Negative (Negative) Disposition Clinical Impression: Acute vomiting Disposition: HOME SELF-CARE Instructions (If sedation given, give patient instructions): Acute Nausea and Vomiting (ED) Is patient prescribed a controlled substance at d/c from ED?: No Referrals: Brett Miller MD [Primary Care Provider] - 1-2 days Time of Disposition: 09:19
[2019-10-14 08:42] LABS: Basophils # (A) 0.1 k/uL (0-0.2); Basophils % (A) 1 %; Eosinophils # (A) 0.5 k/uL (0-0.7); Eosinophils % (A) 9 %; HCT 42.8 % (39.0-53.0); HGB 14.5 gm/dL (13.0-17.5); Lymphocytes # (A) 1.4 k/uL (1.0-4.8); Lymphocytes % (A) 24 %; MCHC 33.9 g/dL (31.0-37.0); MCV 91.5 fL (80.0-100.0); Mean Platelet Volume 7.9; Monocytes # (A) 0.2 k/uL (0-1.0); Monocytes % (A) 4 %; Neutrophils # (A) 3.4 k/uL (1.3-7.7); Neutrophils % (A) 59 %; Platelet Count 198 k/uL (150-450); RBC 4.68 m/uL (4.30-5.90); RDW 12.7 % (11.5-15.5); WBC 5.8 k/uL (3.8-10.6)
[2019-10-14 08:53] LABS: ALT 24 U/L (4-49); AST 26 U/L (17-59); African American GFR (CKD) >90 (>60 ml/min/1.73 sqM); Albumin 3.8 g/dL (3.5-5.0); Alkaline Phosphatase 138 U/L (38-126); Anion Gap 6 mmol/L; Blood Urea Nitrogen 15 mg/dL (9-20); Calcium 8.7 mg/dL (8.4-10.2); Carbon Dioxide 27 mmol/L (22-30); Chloride 100 mmol/L (98-107); Glucose 339 mg/dL (74-99); Non-African American GFR(CKD) >90 (>60 ml/min/1.73 sqM); Potassium 4.6 mmol/L (3.5-5.1); Sodium 133 mmol/L (137-145); Total Bilirubin 0.5 mg/dL (0.2-1.3); Total Protein 6.1 g/dL (6.3-8.2)
[2019-10-14 09:24] VITALS: BP 111/72; PULSE 86; TEMP 98.2
== END 2019-10-14 09:22 | disposition home or self-care (01) ==
LOC: EC 07:46
DX: R11.10 Vomiting, unspecified (principal); R10.11 Right upper quadrant pain; E10.43 Type 1 diabetes mellitus with diabetic autonomic (poly)neuropathy; Z79.4 Long term (current) use of insulin; Z90.49 Acquired absence of other specified parts of digestive tract
CPT/HCPCS: 36415; 80053; 82009; 85025; 99284; 96374; 96361; J2405

== ENCOUNTER 2019-11-18 07:19 | Emergency (ER) | payer OTHER ==
[2019-11-18 07:23] VITALS: RESP 18; TEMP 97.6
[2019-11-18] MEDS ORDERED: diphenhydrAMINE 50 MG/ML 1 ML VIAL IVP STA (07:47)
[2019-11-18] MEDS ORDERED: SODIUM CHLORIDE 0.9% 1,000 ML IV STA ×2 (07:47)
[2019-11-18] MEDS ORDERED: METOCLOPRAMIDE 5 MG/ML 2 ML VIAL IVP STA (07:47)
[2019-11-18] MEDS ORDERED: FAMOTIDINE 20 MG/2 ML VIAL IV STA (07:48)
--- NOTE | 2019-11-18 07:50 | ED ---
General Adult HPI - General Chief complaint: Nausea/Vomiting/Diarrhea Stated complaint: Abd Pain Time Seen by Provider: 11/18/19 07:27 Source: patient, RN notes reviewed Mode of arrival: ambulatory Limitations: no limitations - History of Present Illness Initial comments: Patient is a pleasant 29-year-old male presenting to the emergency Department with complaints of abdominal discomfort. Patient has chronic gastroparesis. Patient states he has frequent nausea. Patient did vomit approximately 3 times today which is not abnormal for him. Patient states he had abdominal discomfort that was somewhat worse than normal however. Patient states discomfort has decreased now and is more mild. Discomfort was left upper abdomen. No radiation. Patient denies chest pain. No constipation or diarrhea. - Related Data Home Medications Medication Instructions Recorded Confirmed Insulin Lispro [Admelog] See Protocol SQ AC-TID 07/02/19 10/14/19 Insulin Glargine,Hum.rec.anlog 18 unit SQ HS 09/01/19 10/14/19 [Basaglar Kwikpen U-100] Previous Rx's Medication Instructions Recorded Ondansetron Odt [Zofran Odt] 4 mg PO Q8HR PRN #14 tab 09/15/19 Allergies Allergy/AdvReac Type Severity Reaction Status Date / Time No Known Allergies Allergy Verified 11/18/19 07:23 Review of Systems ROS Statement: Those systems with pertinent positive or pertinent negative responses have been documented in the HPI. ROS Other: All systems not noted in ROS Statement are negative. Constitutional: Denies: fever Eyes: Denies: eye pain ENT: Denies: ear pain Respiratory: Denies: cough Cardiovascular: Denies: chest pain Endocrine: Denies: fatigue Gastrointestinal: Reports: as per HPI, abdominal pain, nausea, vomiting. Denies: diarrhea, constipation Genitourinary: Denies: dysuria Musculoskeletal: Denies: back pain Skin: Denies: rash Neurological: Denies: weakness Past Medical History Past Medical History: Asthma, Diabetes Mellitus, GERD/Reflux Additional Past Medical History / Comment(s): Other HX: IDDM type I, gastroparesis History of Any Multi-Drug Resistant Organisms: None Reported Past Surgical History: Cholecystectomy Past Anesthesia/Blood Transfusion Reactions: Postoperative Nausea & Vomiting (PONV) Additional Past Anesthesia/Blood Transfusion Reaction / Comment(s): Pt has never received blood. Past Psychological History: No Psychological Hx Reported Smoking Status: Current every day smoker Past Alcohol Use History: Occasional Past Drug Use History: Marijuana - Past Family History Father Family Medical History: Diabetes Mellitus, Hypertension Additional Family Medical History / Comment(s): type II diabetes. Mother Family Medical History: COPD Brother(s) Family Medical History: Diabetes Mellitus Additional Family Medical History / Comment(s): IDDM type I Sister(s) Family Medical History: No Reported History General Exam Limitations: no limitations General appearance: alert, in no apparent distress Head exam: Present: normocephalic Eye exam: Present: normal appearance Neck exam: Present: normal inspection Respiratory exam: Present: normal lung sounds bilaterally Cardiovascular Exam: Present: regular rate, normal rhythm Expanded Peripheral pulses: 2+: Posterior Tibialis (R), Posterior Tibialis (L) GI/Abdominal exam: Present: soft, tenderness (Mild tenderness left upper abdomen and epigastric region), normal bowel sounds. Absent: distended, guarding, rebound, rigid, pulsatile mass Extremities exam: Present: normal inspection. Absent: pedal edema, calf tenderness Neurological exam: Present: alert Psychiatric exam: Present: normal affect, normal mood Skin exam: Present: normal color Course Vital Signs 11/18/19 07:21 Temperature 97.6 F Pulse Rate 77 Respiratory 18 Rate Blood Pressure 130/80 O2 Sat by Pulse 99 Oximetry Medical Decision Making - Medical Decision Making Patient reevaluated and feeling much better. Abdomen soft and nontender. Patient comfortable with discharge home. Patient updated on results. - Lab Data Result diagrams: 11/18/19 07:56 11/18/19 07:56 Lab Results 11/18/19 11/18/19 11/18/19 Range/Units 07:56 07:56 07:56 WBC 6.6 (3.8-10.6) k/uL RBC 4.77 (4.30-5.90) m/uL Hgb 14.7 (13.0-17.5) gm/dL Hct 43.1 (39.0-53.0) % MCV 90.3 (80.0-100.0) fL MCH 30.8 (25.0-35.0) pg MCHC 34.1 (31.0-37.0) g/dL RDW 12.6 (11.5-15.5) % Plt Count 242 (150-450) k/uL Neutrophils % 58 % Lymphocytes % 27 % Monocytes % 4 % Eosinophils % 8 % Basophils % 1 % Neutrophils # 3.8 (1.3-7.7) k/uL Lymphocytes # 1.7 (1.0-4.8) k/uL Monocytes # 0.3 (0-1.0) k/uL Eosinophils # 0.5 (0-0.7) k/uL Basophils # 0.1 (0-0.2) k/uL PT 9.5 (9.0-12.0) sec INR 0.9 (<1.2) APTT 22.5 (22.0-30.0) sec Sodium 135 L (137-145) mmol/L Potassium 4.0 (3.5-5.1) mmol/L Chloride 100 (98-107) mmol/L Carbon Dioxide 26 (22-30) mmol/L Anion Gap 9 mmol/L BUN 16 (9-20) mg/dL Creatinine 0.66 (0.66-1.25) mg/dL Est GFR (CKD-EPI)AfAm >90 (>60 ml/min/1.73 sqM) Est GFR (CKD-EPI)NonAf >90 (>60 ml/min/1.73 sqM) Glucose 236 H (74-99) mg/dL Calcium 9.1 (8.4-10.2) mg/dL Total Bilirubin 0.3 (0.2-1.3) mg/dL AST 24 (17-59) U/L ALT 21 (4-49) U/L Alkaline Phosphatase 129 H (38-126) U/L Total Protein 6.5 (6.3-8.2) g/dL Albumin 3.9 (3.5-5.0) g/dL Amylase 53 (30-110) U/L Lipase 185 (23-300) U/L Urine Color Urine Appearance (Clear) Urine pH (5.0-8.0) Ur Specific [place] (1.001-1.035) Urine Protein (Negative) Urine Glucose (UA) (Negative) Urine Ketones (Negative) Urine Blood (Negative) Urine Nitrite (Negative) Urine Bilirubin (Negative) Urine Urobilinogen (<2.0) mg/dL Ur Leukocyte Esterase (Negative) Acetone, Qual Negative (Negative) 11/18/19 Range/Units 08:15 WBC (3.8-10.6) k/uL RBC (4.30-5.90) m/uL Hgb (13.0-17.5) gm/dL Hct (39.0-53.0) % MCV (80.0-100.0) fL MCH (25.0-35.0) pg MCHC (31.0-37.0) g/dL RDW (11.5-15.5) % Plt Count (150-450) k/uL Neutrophils % % Lymphocytes % % Monocytes % % Eosinophils % % Basophils % % Neutrophils # (1.3-7.7) k/uL Lymphocytes # (1.0-4.8) k/uL Monocytes # (0-1.0) k/uL Eosinophils # (0-0.7) k/uL Basophils # (0-0.2) k/uL PT (9.0-12.0) sec INR (<1.2) APTT (22.0-30.0) sec Sodium (137-145) mmol/L Potassium (3.5-5.1) mmol/L Chloride (98-107) mmol/L Carbon Dioxide (22-30) mmol/L Anion Gap mmol/L BUN (9-20) mg/dL Creatinine (0.66-1.25) mg/dL Est GFR (CKD-EPI)AfAm (>60 ml/min/1.73 sqM) Est GFR (CKD-EPI)NonAf (>60 ml/min/1.73 sqM) Glucose (74-99) mg/dL Calcium (8.4-10.2) mg/dL Total Bilirubin (0.2-1.3) mg/dL AST (17-59) U/L ALT (4-49) U/L Alkaline Phosphatase (38-126) U/L Total Protein (6.3-8.2) g/dL Albumin (3.5-5.0) g/dL Amylase (30-110) U/L Lipase (23-300) U/L Urine Color Yellow Urine Appearance Clear (Clear) Urine pH 6.0 (5.0-8.0) Ur Specific [place] 1.025 (1.001-1.035) Urine Protein Negative (Negative) Urine Glucose (UA) 4+ H (Negative) Urine Ketones Negative (Negative) Urine Blood Negative (Negative) Urine Nitrite Negative (Negative) Urine Bilirubin Negative (Negative) Urine Urobilinogen <2.0 (<2.0) mg/dL Ur Leukocyte Esterase Negative (Negative) Acetone, Qual (Negative) - Radiology Data Radiology results: image reviewed (Abdominal x-ray shows no acute process) Disposition Clinical Impression: Hyperglycemia, Nausea, Abdominal pain Disposition: HOME SELF-CARE Condition: Stable Instructions (If sedation given, give patient instructions): Abdominal Pain (ED), Acute Nausea and Vomiting (ED), Diabetic Hyperglycemia (ED), Gastroparesis (ED) Additional Instructions: Please follow-up with primary care physician in the next couple days for recheck. Primary care physician will need to reevaluate diabetes treatment. Return for increased pain, fever, uncontrolled vomiting, worsening symptoms or other concerns. Is patient prescribed a controlled substance at d/c from ED?: No Referrals: Brett Miller MD [Primary Care Provider] - 1-2 days Time of Disposition: 09:02
[2019-11-18 08:09] LABS: Basophils # (A) 0.1 k/uL (0-0.2); Basophils % (A) 1 %; Eosinophils # (A) 0.5 k/uL (0-0.7); Eosinophils % (A) 8 %; HCT 43.1 % (39.0-53.0); HGB 14.7 gm/dL (13.0-17.5); Lymphocytes # (A) 1.7 k/uL (1.0-4.8); Lymphocytes % (A) 27 %; MCH 30.8 pg (25.0-35.0); MCHC 34.1 g/dL (31.0-37.0); MCV 90.3 fL (80.0-100.0); Monocytes # (A) 0.3 k/uL (0-1.0); Monocytes % (A) 4 %; Neutrophils # (A) 3.8 k/uL (1.3-7.7); Neutrophils % (A) 58 %; Platelet Count 242 k/uL (150-450); RBC 4.77 m/uL (4.30-5.90); RDW 12.6 % (11.5-15.5); WBC 6.6 k/uL (3.8-10.6)
[2019-11-18 08:23] LABS: INR 0.9 (<1.2); Partial Thromboplastin Time 22.5 sec (22.0-30.0); Prothrombin Time 9.5 sec (9.0-12.0)
[2019-11-18 08:24] LABS: ALT 21 U/L (4-49); AST 24 U/L (17-59); African American GFR (CKD) >90 (>60 ml/min/1.73 sqM); Albumin 3.9 g/dL (3.5-5.0); Alkaline Phosphatase 129 U/L (38-126); Amylase 53 U/L (30-110); Anion Gap 9 mmol/L; Blood Urea Nitrogen 16 mg/dL (9-20); Calcium 9.1 mg/dL (8.4-10.2); Carbon Dioxide 26 mmol/L (22-30); Chloride 100 mmol/L (98-107); Glucose 236 mg/dL (74-99); Non-African American GFR(CKD) >90 (>60 ml/min/1.73 sqM); Sodium 135 mmol/L (137-145); Total Bilirubin 0.3 mg/dL (0.2-1.3); Total Protein 6.5 g/dL (6.3-8.2)
[2019-11-18 08:27] LABS: Appearance,Urine Clear (Clear); Bilirubin,Urine Negative (Negative); Blood,Urine Negative (Negative); Color,Urine Yellow; Glucose,Urine (UA) 4+ (Negative); Ketones,Urine Negative (Negative); Leukocyte Esterase,Urine Negative (Negative); Nitrite,Urine Negative (Negative); Protein,Urine Negative (Negative); Specific Gravity,Urine 1.025 (1.001-1.035); Urobilinogen,Urine <2.0 mg/dL (<2.0)
--- NOTE | 2019-11-18 08:27 | XR ---
EXAMINATION TYPE: XR KUB DATE OF EXAM: 11/18/2019 COMPARISON: 09/01/2019 HISTORY: Pain TECHNIQUE: Single supine KUB image of the abdomen is obtained FINDINGS: Small bowel demonstrates no evidence for dilatation or air fluid levels. Gas and fecal material is seen in non-distended colon. No convincing evidence for pneumoperitoneum. No unusual calcifications. The lung bases are clear. The osseous structures are intact. IMPRESSION: 1. Overall nonobstructive bowel gas pattern.
[2019-11-18 09:19] VITALS: BP 112/75; PULSE 69
== END 2019-11-18 09:13 | disposition home or self-care (01) ==
LOC: EC 07:19
DX: E10.65 Type 1 diabetes mellitus with hyperglycemia (principal); R11.2 Nausea with vomiting, unspecified; R10.9 Unspecified abdominal pain; R19.7 Diarrhea, unspecified; F17.200 Nicotine dependence, unspecified, uncomplicated; Z90.49 Acquired absence of other specified parts of digestive tract; Z87.19 Personal history of other diseases of the digestive system; Z79.4 Long term (current) use of insulin
CPT/HCPCS: 99284; 96374; 96375 ×2; 96361; 36415; 80053; 82150; 82009; 83690; 85025; 85610; 85730; 81003; 74018; J1200; J2765

== ENCOUNTER 2019-11-25 06:58 | Emergency (ER) | payer OTHER ==
[2019-11-25 07:07] VITALS: RESP 18
[2019-11-25 07:13] LABS: Glucose,Whole Blood 236 mg/dL (75-99)
--- NOTE | 2019-11-25 07:21 | ED ---
Recheck HPI - General Source: patient Mode of arrival: ambulatory Limitations: no limitations <Sheridan Everett - Last Filed: 11/25/19 08:36> <Loraine Nevarez - Last Filed: 11/26/19 02:24> - General Chief Complaint: Recheck/Abnormal Lab/Rx Stated Complaint: Nausea/high blood sugar Time Seen by Provider: 11/25/19 07:08 - History of Present Illness Initial Comments: 21-year-old male presenting today for chief complaint of nausea on a blood glucose. Patient states he has had some nausea as history of gastroparesis. Patient denies abdominal pain fevers cough congestion or rash. Patient states that throughout the night his sugar was in the 400s this is unusual for him. Patient states he took 12 units of fast acting insulin at 6:55AM. Patient states when sugars remained high after insulin he decided to present to the ER to ensure he was not in DKA. Patient has no other focalizing symptoms. Denies other complaints. Appears well on arrival. (Sheridan Everett) - Related Data Home Medications Medication Instructions Recorded Confirmed Insulin Lispro [Admelog] See Protocol SQ AC-TID 07/02/19 10/14/19 Insulin Glargine,Hum.rec.anlog 18 unit SQ HS 09/01/19 10/14/19 [Basaglar Kwikpen U-100] Previous Rx's Medication Instructions Recorded Ondansetron Odt [Zofran Odt] 4 mg PO Q8HR PRN #14 tab 09/15/19 Ondansetron Odt [Zofran Odt] 4 mg PO Q8HR PRN 7 Days #21 tab 11/25/19 Allergies Allergy/AdvReac Type Severity Reaction Status Date / Time No Known Allergies Allergy Verified 11/25/19 07:07 Review of Systems ROS Other: All systems not noted in ROS Statement are negative. <Sheridan Everett - Last Filed: 11/25/19 08:36> ROS Other: All systems not noted in ROS Statement are negative. <Loraine Nevarez - Last Filed: 11/26/19 02:24> ROS Statement: Those systems with pertinent positive or pertinent negative responses have been documented in the HPI. Past Medical History Past Medical History: Asthma, Diabetes Mellitus, GERD/Reflux Additional Past Medical History / Comment(s): Other HX: IDDM type I, gastroparesis History of Any Multi-Drug Resistant Organisms: None Reported Past Surgical History: Cholecystectomy Past Anesthesia/Blood Transfusion Reactions: Postoperative Nausea & Vomiting (PONV) Additional Past Anesthesia/Blood Transfusion Reaction / Comment(s): Pt has never received blood. Past Psychological History: No Psychological Hx Reported Smoking Status: Current every day smoker Past Alcohol Use History: Occasional Past Drug Use History: Marijuana - Past Family History Father Family Medical History: Diabetes Mellitus, Hypertension Additional Family Medical History / Comment(s): type II diabetes. Mother Family Medical History: COPD Brother(s) Family Medical History: Diabetes Mellitus Additional Family Medical History / Comment(s): IDDM type I Sister(s) Family Medical History: No Reported History <Sheridan Everett - Last Filed: 11/25/19 08:36> General Exam Limitations: no limitations <Sheridan Everett - Last Filed: 11/25/19 08:36> - General Exam Comments Initial Comments: General: The patient is awake and alert, in no distress Eye: Pupils are equal, round and reactive to light, extra-ocular movements are intact. No nystagmus. There is normal conjunctiva bilaterally. No signs of icterus. Cardiovascular: There is a regular rate and rhythm. No murmur, rub or gallop is appreciated. Respiratory: Lungs are clear to auscultation, respirations are non-labored, breath sounds are equal. No wheezes, stridor, rales, or rhonchi. Gastrointestinal: Soft, non-distended, non-tender abdomen without masses or organomegaly noted. There is no rebound or guarding present. Musculoskeletal: Normal ROM, no tenderness. Strength 5/5. Sensation intact. Radial pulses equal bilaterally 2+. Neurological: A&O x 3. CN II-XII intact grossly, There are no obvious motor or sensory deficits. Coordination appears grossly intact. Speech is normal. Skin: Skin is warm and dry and no rashes or lesions are noted. Psychiatric: Cooperative, appropriate mood & affect, normal judgment. (Sheridan Everett) Course Vital Signs 11/25/19 11/25/19 07:02 08:33 Temperature 97.6 F 97.8 F Pulse Rate 92 77 Respiratory 18 18 Rate Blood Pressure 137/86 129/81 O2 Sat by Pulse 98 99 Oximetry Medical Decision Making - Lab Data Result diagrams: 11/25/19 07:30 11/25/19 07:30 <Sheridan Everett - Last Filed: 11/25/19 08:36> - Lab Data Result diagrams: 11/25/19 07:30 11/25/19 07:30 <Loraine Nevarez - Last Filed: 11/26/19 02:24> - Medical Decision Making 29yo presenting for nausea, elevated glucose. Gap 12. +1 ketones, +4 glucose. Acetone (-). Glucose 216. Patient abdomen benign. No pain. Patient will be discharged with PCP f/u. Strict return parameters, glucose glucose monitoring. Dr Nevarez agreeable to care plan and discharge at this time. (Sheridan Everett) I was available for consultation in the emergency department. The history and physical exam were done by the midlevel provider. I was consulted for this patients care. I reviewed the case with the midlevel provider and based on their presentation of the patient, I agree with the assessment, medical decision making and plan of care as documented. Chart was dictated using [employer] dictation software. Attempts were made to correct any dictation errors however some typographical errors may persist. Patient was seen during a national state of emergency due to the Covid-19 pandemic. (Loraine Nevarez) - Lab Data Lab Results 11/25/19 11/25/19 11/25/19 Range/Units 07:11 07:30 07:30 WBC 7.2 (3.8-10.6) k/uL RBC 5.11 (4.30-5.90) m/uL Hgb 15.4 (13.0-17.5) gm/dL Hct 47.8 (39.0-53.0) % MCV 93.4 (80.0-100.0) fL MCH 30.0 (25.0-35.0) pg MCHC 32.1 (31.0-37.0) g/dL RDW 12.9 (11.5-15.5) % Plt Count 219 (150-450) k/uL Neutrophils % 60 % Lymphocytes % 24 % Monocytes % 4 % Eosinophils % 8 % Basophils % 1 % Neutrophils # 4.4 (1.3-7.7) k/uL Lymphocytes # 1.7 (1.0-4.8) k/uL Monocytes # 0.3 (0-1.0) k/uL Eosinophils # 0.6 (0-0.7) k/uL Basophils # 0.1 (0-0.2) k/uL Sodium (137-145) mmol/L Potassium (3.5-5.1) mmol/L Chloride (98-107) mmol/L Carbon Dioxide (22-30) mmol/L Anion Gap mmol/L BUN (9-20) mg/dL Creatinine (0.66-1.25) mg/dL Est GFR (CKD-EPI)AfAm (>60 ml/min/1.73 sqM) Est GFR (CKD-EPI)NonAf (>60 ml/min/1.73 sqM) Glucose (74-99) mg/dL POC Glucose (mg/dL) 236 H (75-99) mg/dL POC Glu Power Tong Operator ID Victoria Edwards Calcium (8.4-10.2) mg/dL Total Bilirubin (0.2-1.3) mg/dL AST (17-59) U/L ALT (4-49) U/L Alkaline Phosphatase (38-126) U/L Total Protein (6.3-8.2) g/dL Albumin (3.5-5.0) g/dL Urine Color Light Yellow Urine Appearance Clear (Clear) Urine pH 6.0 (5.0-8.0) Ur Specific [place] 1.031 (1.001-1.035) Urine Protein Negative (Negative) Urine Glucose (UA) 4+ H (Negative) Urine Ketones 1+ H (Negative) Urine Blood Negative (Negative) Urine Nitrite Negative (Negative) Urine Bilirubin Negative (Negative) Urine Urobilinogen <2.0 (<2.0) mg/dL Ur Leukocyte Esterase Negative (Negative) Acetone, Qual (Negative) 11/25/19 11/25/19 Range/Units 07:30 08:29 WBC (3.8-10.6) k/uL RBC (4.30-5.90) m/uL Hgb (13.0-17.5) gm/dL Hct (39.0-53.0) % MCV (80.0-100.0) fL MCH (25.0-35.0) pg MCHC (31.0-37.0) g/dL RDW (11.5-15.5) % Plt Count (150-450) k/uL Neutrophils % % Lymphocytes % % Monocytes % % Eosinophils % % Basophils % % Neutrophils # (1.3-7.7) k/uL Lymphocytes # (1.0-4.8) k/uL Monocytes # (0-1.0) k/uL Eosinophils # (0-0.7) k/uL Basophils # (0-0.2) k/uL Sodium 137 (137-145) mmol/L Potassium 4.1 (3.5-5.1) mmol/L Chloride 100 (98-107) mmol/L Carbon Dioxide 25 (22-30) mmol/L Anion Gap 12 mmol/L BUN 23 H (9-20) mg/dL Creatinine 0.84 (0.66-1.25) mg/dL Est GFR (CKD-EPI)AfAm >90 (>60 ml/min/1.73 sqM) Est GFR (CKD-EPI)NonAf >90 (>60 ml/min/1.73 sqM) Glucose 216 H (74-99) mg/dL POC Glucose (mg/dL) 138 H (75-99) mg/dL POC Glu Power Tong Operator ID Birgit London Calcium 9.2 (8.4-10.2) mg/dL Total Bilirubin 0.5 (0.2-1.3) mg/dL AST 24 (17-59) U/L ALT 24 (4-49) U/L Alkaline Phosphatase 139 H (38-126) U/L Total Protein 7.0 (6.3-8.2) g/dL Albumin 4.3 (3.5-5.0) g/dL Urine Color Urine Appearance (Clear) Urine pH (5.0-8.0) Ur Specific [place] (1.001-1.035) Urine Protein (Negative) Urine Glucose (UA) (Negative) Urine Ketones (Negative) Urine Blood (Negative) Urine Nitrite (Negative) Urine Bilirubin (Negative) Urine Urobilinogen (<2.0) mg/dL Ur Leukocyte Esterase (Negative) Acetone, Qual Negative (Negative) Disposition Is patient prescribed a controlled substance at d/c from ED?: No Time of Disposition: 08:19 <Sheridan Everett - Last Filed: 11/25/19 08:36> <Loraine Nevarez - Last Filed: 11/26/19 02:24> Clinical Impression: Nausea, Elevated glucose Disposition: HOME SELF-CARE Condition: Good Instructions (If sedation given, give patient instructions): Acute Nausea and Vomiting (ED) Additional Instructions: Please use medication as discussed. Please follow-up with family doctor in the next 2 days of symptoms have not improved. Please return to emergency room if the symptoms increase or worsen or for any other concerns. Prescriptions: Ondansetron Odt [Zofran Odt] 4 mg PO Q8HR PRN 7 Days #21 tab PRN Reason: Nausea Referrals: Brett Miller MD [Primary Care Provider] - 1-2 days
[2019-11-25] MEDS ORDERED: SODIUM CHLORIDE 0.9% 500 ML 500 ML IV ONE (07:25)
[2019-11-25] MEDS ORDERED: SODIUM CHLORIDE 0.9% 1,000 ML IV ONE (07:25)
[2019-11-25] MEDS ORDERED: SODIUM CHLORIDE 0.9% 1,000 ML IV SCH (07:30)
[2019-11-25 07:40] LABS: Appearance,Urine Clear (Clear); Bilirubin,Urine Negative (Negative); Blood,Urine Negative (Negative); Color,Urine Light Yellow; Glucose,Urine (UA) 4+ (Negative); Ketones,Urine 1+ (Negative); Leukocyte Esterase,Urine Negative (Negative); Nitrite,Urine Negative (Negative); Protein,Urine Negative (Negative); Specific Gravity,Urine 1.031 (1.001-1.035); Urobilinogen,Urine <2.0 mg/dL (<2.0)
[2019-11-25 07:43] LABS: Basophils # (A) 0.1 k/uL (0-0.2); Basophils % (A) 1 %; Eosinophils # (A) 0.6 k/uL (0-0.7); Eosinophils % (A) 8 %; HCT 47.8 % (39.0-53.0); HGB 15.4 gm/dL (13.0-17.5); Lymphocytes # (A) 1.7 k/uL (1.0-4.8); Lymphocytes % (A) 24 %; MCHC 32.1 g/dL (31.0-37.0); MCV 93.4 fL (80.0-100.0); Mean Platelet Volume 7.6; Monocytes # (A) 0.3 k/uL (0-1.0); Monocytes % (A) 4 %; Neutrophils # (A) 4.4 k/uL (1.3-7.7); Neutrophils % (A) 60 %; Platelet Count 219 k/uL (150-450); RBC 5.11 m/uL (4.30-5.90); RDW 12.9 % (11.5-15.5); WBC 7.2 k/uL (3.8-10.6)
[2019-11-25 08:00] LABS: ALT 24 U/L (4-49); AST 24 U/L (17-59); African American GFR (CKD) >90 (>60 ml/min/1.73 sqM); Albumin 4.3 g/dL (3.5-5.0); Alkaline Phosphatase 139 U/L (38-126); Anion Gap 12 mmol/L; Blood Urea Nitrogen 23 mg/dL (9-20); Calcium 9.2 mg/dL (8.4-10.2); Carbon Dioxide 25 mmol/L (22-30); Chloride 100 mmol/L (98-107); Glucose 216 mg/dL (74-99); Non-African American GFR(CKD) >90 (>60 ml/min/1.73 sqM); Potassium 4.1 mmol/L (3.5-5.1); Sodium 137 mmol/L (137-145); Total Bilirubin 0.5 mg/dL (0.2-1.3)
[2019-11-25 08:34] VITALS: BP 129/81; PULSE 77; TEMP 97.8
[2019-11-25 08:50] LABS: Glucose,Whole Blood 138 mg/dL (75-99)
== END 2019-11-25 08:39 | disposition home or self-care (01) ==
LOC: EC 06:58
DX: E10.65 Type 1 diabetes mellitus with hyperglycemia (principal); R11.0 Nausea; E10.43 Type 1 diabetes mellitus with diabetic autonomic (poly)neuropathy; K31.84 Gastroparesis; F17.200 Nicotine dependence, unspecified, uncomplicated; Z79.4 Long term (current) use of insulin
CPT/HCPCS: 36415; 80053; 81003; 82009; 85025; 96360; 99283

== ENCOUNTER 2019-12-09 10:55 | Emergency (ER) | payer OTHER ==
[2019-12-09 10:59] VITALS: RESP 18
[2019-12-09] MEDS ORDERED: FAMOTIDINE 20 MG/2 ML VIAL IV STA (11:21)
[2019-12-09] MEDS ORDERED: ONDANSETRON 4 MG/2 ML VIAL IVP STA (11:21)
[2019-12-09] MEDS ORDERED: SODIUM CHLORIDE 0.9% 1,000 ML IV STA (11:21)
--- NOTE | 2019-12-09 11:23 | ED ---
Nausea/Vomiting/Diarrhea HPI - General Chief complaint: Nausea/Vomiting/Diarrhea Stated complaint: vomiting Time Seen by Provider: 12/09/19 11:00 Source: patient Mode of arrival: ambulatory Limitations: no limitations - History of Present Illness Initial comments: Patient is 29-year-old male with history of type 1 diabetes presenting to emergency Department with a chief complaint of nausea vomiting. Patient states he comes to the emergency room often with similar symptoms. States he checked his blood sugar this morning and it was 150 but continues to symptomatic. States he took Zofran but immediately vomited after. Does report some epigastric abdominal discomfort was states that is due to the vomiting. Does report one episode of hematemesis which occurred after several episodes of vomiting. States this episode started early this morning. Patient does admit to smoking marijuana. Patient states uses injectable insulin but will soon be using an insulin pump. - Related Data Home Medications Medication Instructions Recorded Confirmed Insulin Lispro [Admelog] See Protocol SQ AC-TID 07/02/19 10/14/19 Insulin Glargine,Hum.rec.anlog 18 unit SQ HS 09/01/19 10/14/19 [Basaglar Kwikpen U-100] Previous Rx's Medication Instructions Recorded Ondansetron Odt [Zofran Odt] 4 mg PO Q8HR PRN #14 tab 09/15/19 Ondansetron Odt [Zofran Odt] 4 mg PO Q8HR PRN 7 Days #21 tab 11/25/19 Ondansetron Odt [Zofran Odt] 4 mg PO Q8HR PRN #20 tab 12/09/19 Allergies Allergy/AdvReac Type Severity Reaction Status Date / Time No Known Allergies Allergy Verified 12/09/19 10:59 Review of Systems ROS Statement: Those systems with pertinent positive or pertinent negative responses have been documented in the HPI. ROS Other: All systems not noted in ROS Statement are negative. Past Medical History Past Medical History: Asthma, Diabetes Mellitus, GERD/Reflux Additional Past Medical History / Comment(s): Other HX: IDDM type I, gastroparesis History of Any Multi-Drug Resistant Organisms: None Reported Past Surgical History: Cholecystectomy Past Anesthesia/Blood Transfusion Reactions: Postoperative Nausea & Vomiting (PONV) Additional Past Anesthesia/Blood Transfusion Reaction / Comment(s): Pt has never received blood. Past Psychological History: No Psychological Hx Reported Smoking Status: Current every day smoker Past Alcohol Use History: Occasional Past Drug Use History: Marijuana - Past Family History Father Family Medical History: Diabetes Mellitus, Hypertension Additional Family Medical History / Comment(s): type II diabetes. Mother Family Medical History: COPD Brother(s) Family Medical History: Diabetes Mellitus Additional Family Medical History / Comment(s): IDDM type I Sister(s) Family Medical History: No Reported History General Exam Limitations: no limitations General appearance: alert, in no apparent distress Head exam: Present: atraumatic, normocephalic, normal inspection Eye exam: Present: normal appearance, PERRL, EOMI Pupils: Present: normal accommodation ENT exam: Present: normal exam, normal oropharynx, mucous membranes moist Neck exam: Present: normal inspection, full ROM Respiratory exam: Present: normal lung sounds bilaterally. Absent: respiratory distress, wheezes, rales Cardiovascular Exam: Present: regular rate, normal rhythm, normal heart sounds GI/Abdominal exam: Present: soft, tenderness (Mild epigastric and right upper quadrant tenderness). Absent: distended, guarding, rebound Extremities exam: Present: normal inspection, full ROM Back exam: Present: normal inspection, full ROM Neurological exam: Present: alert, oriented X3 Psychiatric exam: Present: normal affect, normal mood Skin exam: Present: warm, dry, intact, normal color Course Vital Signs 12/09/19 10:56 Temperature 98 F Pulse Rate 89 Respiratory 18 Rate Blood Pressure 121/75 O2 Sat by Pulse 98 Oximetry Medical Decision Making - Medical Decision Making Patient is 29-year-old male with history of type 1 diabetes presenting to the emergency department with a chief complaint of nausea vomiting. Patient states the symptoms began early this morning and is not able to get him under control. Patient is a frequent visitor to the emergency department with similar chief complaint. Blood glucose is 178. CBC is unremarkable. UA shows +4 glucose. Patient was given antiemetics and fluids. Reevaluation patient reports feeling much better. Patient will be discharged with a Zofran starter pack. Also given a prescription for Zofran. Return parameters so discussed the patient was understanding and agreeable. Case discussed with physician. - Lab Data Result diagrams: 12/09/19 11:31 12/09/19 11:31 Lab Results 12/09/19 12/09/19 12/09/19 Range/Units 11:31 11:31 11:31 WBC 6.1 (3.8-10.6) k/uL RBC 4.91 (4.30-5.90) m/uL Hgb 15.1 (13.0-17.5) gm/dL Hct 43.9 (39.0-53.0) % MCV 89.3 (80.0-100.0) fL MCH 30.8 (25.0-35.0) pg MCHC 34.4 (31.0-37.0) g/dL RDW 12.8 (11.5-15.5) % Plt Count 238 (150-450) k/uL Neutrophils % 69 % Lymphocytes % 21 % Monocytes % 3 % Eosinophils % 5 % Basophils % 1 % Neutrophils # 4.2 (1.3-7.7) k/uL Lymphocytes # 1.3 (1.0-4.8) k/uL Monocytes # 0.2 (0-1.0) k/uL Eosinophils # 0.3 (0-0.7) k/uL Basophils # 0.1 (0-0.2) k/uL Sodium 136 L (137-145) mmol/L Potassium 4.2 (3.5-5.1) mmol/L Chloride 101 (98-107) mmol/L Carbon Dioxide 28 (22-30) mmol/L Anion Gap 7 mmol/L BUN 18 (9-20) mg/dL Creatinine 0.65 L (0.66-1.25) mg/dL Est GFR (CKD-EPI)AfAm >90 (>60 ml/min/1.73 sqM) Est GFR (CKD-EPI)NonAf >90 (>60 ml/min/1.73 sqM) Glucose 178 H (74-99) mg/dL Calcium 9.4 (8.4-10.2) mg/dL Total Bilirubin 0.7 (0.2-1.3) mg/dL AST 30 (17-59) U/L ALT 35 (4-49) U/L Alkaline Phosphatase 113 (38-126) U/L Total Protein 6.8 (6.3-8.2) g/dL Albumin 4.4 (3.5-5.0) g/dL Lipase 19 L (23-300) U/L Urine Color Yellow Urine Appearance Clear (Clear) Urine pH 7.0 (5.0-8.0) Ur Specific [place] 1.028 (1.001-1.035) Urine Protein Trace H (Negative) Urine Glucose (UA) 4+ H (Negative) Urine Ketones Negative (Negative) Urine Blood Negative (Negative) Urine Nitrite Negative (Negative) Urine Bilirubin Negative (Negative) Urine Urobilinogen 3.0 (<2.0) mg/dL Ur Leukocyte Esterase Negative (Negative) Disposition Clinical Impression: Nausea & vomiting, Abdominal pain Disposition: HOME SELF-CARE Condition: Stable Instructions (If sedation given, give patient instructions): Abdominal Pain (ED) Additional Instructions: Take prescribed medication as directed. Return to emergency department if symptoms worsen. Prescriptions: Ondansetron Odt [Zofran Odt] 4 mg PO Q8HR PRN #20 tab PRN Reason: Nausea Is patient prescribed a controlled substance at d/c from ED?: No Referrals: Brett Miller MD [Primary Care Provider] - 1-2 days Time of Disposition: 12:24
[2019-12-09 11:50] LABS: Basophils # (A) 0.1 k/uL (0-0.2); Basophils % (A) 1 %; Eosinophils # (A) 0.3 k/uL (0-0.7); Eosinophils % (A) 5 %; HCT 43.9 % (39.0-53.0); HGB 15.1 gm/dL (13.0-17.5); Lymphocytes # (A) 1.3 k/uL (1.0-4.8); Lymphocytes % (A) 21 %; MCH 30.8 pg (25.0-35.0); MCHC 34.4 g/dL (31.0-37.0); MCV 89.3 fL (80.0-100.0); Mean Platelet Volume 7.9; Monocytes # (A) 0.2 k/uL (0-1.0); Monocytes % (A) 3 %; Neutrophils # (A) 4.2 k/uL (1.3-7.7); Neutrophils % (A) 69 %; Platelet Count 238 k/uL (150-450); RBC 4.91 m/uL (4.30-5.90); RDW 12.8 % (11.5-15.5); WBC 6.1 k/uL (3.8-10.6)
[2019-12-09 12:00] LABS: Appearance,Urine Clear (Clear); Bilirubin,Urine Negative (Negative); Blood,Urine Negative (Negative); Color,Urine Yellow; Glucose,Urine (UA) 4+ (Negative); Ketones,Urine Negative (Negative); Leukocyte Esterase,Urine Negative (Negative); Nitrite,Urine Negative (Negative); Protein,Urine Trace (Negative); Specific Gravity,Urine 1.028 (1.001-1.035)
[2019-12-09 12:10] LABS: ALT 35 U/L (4-49); AST 30 U/L (17-59); African American GFR (CKD) >90 (>60 ml/min/1.73 sqM); Albumin 4.4 g/dL (3.5-5.0); Alkaline Phosphatase 113 U/L (38-126); Anion Gap 7 mmol/L; Blood Urea Nitrogen 18 mg/dL (9-20); Calcium 9.4 mg/dL (8.4-10.2); Carbon Dioxide 28 mmol/L (22-30); Chloride 101 mmol/L (98-107); Glucose 178 mg/dL (74-99); Non-African American GFR(CKD) >90 (>60 ml/min/1.73 sqM); Potassium 4.2 mmol/L (3.5-5.1); Sodium 136 mmol/L (137-145); Total Bilirubin 0.7 mg/dL (0.2-1.3); Total Protein 6.8 g/dL (6.3-8.2)
[2019-12-09] MEDS ORDERED: ONDANSETRON 4 MG ODT STARTER PACK 2 TAB BTL PO STA (12:20)
[2019-12-09 12:44] VITALS: BP 126/70; PULSE 78; TEMP 97.7
== END 2019-12-09 12:44 | disposition home or self-care (01) ==
LOC: EC 10:55
DX: R11.2 Nausea with vomiting, unspecified (principal); R10.13 Epigastric pain; E10.43 Type 1 diabetes mellitus with diabetic autonomic (poly)neuropathy; K31.84 Gastroparesis; F17.200 Nicotine dependence, unspecified, uncomplicated; Z79.4 Long term (current) use of insulin
CPT/HCPCS: 36415; 80053; 81003; 83690; 85025; 96361; 96374; 96375; 99284

== ENCOUNTER 2019-12-29 23:29 | Emergency (ER) | payer OTHER ==
[2019-12-29 23:37] VITALS: RESP 18
[2019-12-29] MEDS ORDERED: SODIUM CHLORIDE 0.9% 500 ML 500 ML IV STA (23:57)
[2019-12-29] MEDS ORDERED: ONDANSETRON 4 MG/2 ML VIAL IVP STA (23:57)
[2019-12-29] MEDS ORDERED: SODIUM CHLORIDE 0.9% 1,000 ML IV STA ×2 (23:57)
[2019-12-29] MEDS ORDERED: MORPHINE SULFATE 4 MG/ML SYRINGE IV STA (23:57)
[2019-12-29] MEDS ORDERED: PANTOPRAZOLE 40 MG/10 ML VIAL IVP STA (23:58)
[2019-12-29] MEDS ORDERED: METOCLOPRAMIDE 5 MG/ML 2 ML VIAL IVP STA (23:58)
[2019-12-30 00:02] LABS: Glucose,Whole Blood 230 mg/dL (75-99)
[2019-12-30 00:22] LABS: Basophils # (A) 0.1 k/uL (0-0.2); Basophils % (A) 1 %; Eosinophils # (A) 0.6 k/uL (0-0.7); Eosinophils % (A) 6 %; HCT 44.6 % (39.0-53.0); HGB 14.7 gm/dL (13.0-17.5); Lymphocytes # (A) 2.3 k/uL (1.0-4.8); Lymphocytes % (A) 24 %; MCH 29.7 pg (25.0-35.0); MCV 90.1 fL (80.0-100.0); Mean Platelet Volume 7.6; Monocytes # (A) 0.3 k/uL (0-1.0); Monocytes % (A) 4 %; Neutrophils # (A) 6.1 k/uL (1.3-7.7); Neutrophils % (A) 64 %; Platelet Count 265 k/uL (150-450); RBC 4.95 m/uL (4.30-5.90); RDW 12.7 % (11.5-15.5); WBC 9.5 k/uL (3.8-10.6)
[2019-12-30 00:32] LABS: ALT 48 U/L (4-49); AST 57 U/L (17-59); African American GFR (CKD) >90 (>60 ml/min/1.73 sqM); Albumin 4.3 g/dL (3.5-5.0); Alkaline Phosphatase 83 U/L (38-126); Anion Gap 7 mmol/L; Blood Urea Nitrogen 16 mg/dL (9-20); Calcium 9.3 mg/dL (8.4-10.2); Carbon Dioxide 30 mmol/L (22-30); Chloride 99 mmol/L (98-107); Glucose 199 mg/dL (74-99); Magnesium 1.7 mg/dL (1.6-2.3); Non-African American GFR(CKD) >90 (>60 ml/min/1.73 sqM); Phosphorus 4.6 mg/dL (2.5-4.5); Potassium 4.6 mmol/L (3.5-5.1); Sodium 136 mmol/L (137-145); Total Bilirubin 0.7 mg/dL (0.2-1.3); Total Protein 6.6 g/dL (6.3-8.2)
[2019-12-30 00:55] VITALS: TEMP 98.8
--- NOTE | 2019-12-30 01:01 | ED ---
Abdominal Pain HPI - General Chief Complaint: Abdominal Pain Stated Complaint: abd pain/nausea Time Seen by Provider: 12/29/19 23:45 Source: patient, RN notes reviewed, old records reviewed Mode of arrival: ambulatory Limitations: no limitations - History of Present Illness Initial Comments: This is a 29-year-old male to the ER for evaluation today. He presents with a history of diabetes having labile blood sugar symptoms low sometimes are appetite decreased with persistent nausea vomiting episodic cramping abdominal pain history of gastroparesis. Patient states symptoms are just been persistent despite at-home therapy unable to keep medications down. Denying fevers diarrhea MD Complaint: abdominal pain -: days(s) Location: diffuse, epigastric, suprapubic Radiation: epigastric, suprapubic Migration to: no migration Severity: moderate Severity scale (1-10): 5 Consistency: constant Improves With: vomiting Worsens With: nothing Associated Symptoms: nausea, vomiting, anorexia - Related Data Home Medications Medication Instructions Recorded Confirmed Insulin Lispro [Admelog] See Protocol SQ AC-TID 07/02/19 10/14/19 Insulin Glargine,Hum.rec.anlog 18 unit SQ HS 09/01/19 10/14/19 [Basaglar Kwikpen U-100] Previous Rx's Medication Instructions Recorded Ondansetron Odt [Zofran Odt] 4 mg PO Q8HR PRN #14 tab 09/15/19 Ondansetron Odt [Zofran Odt] 4 mg PO Q8HR PRN 7 Days #21 tab 11/25/19 Ondansetron Odt [Zofran Odt] 4 mg PO Q8HR PRN #20 tab 12/09/19 Allergies Allergy/AdvReac Type Severity Reaction Status Date / Time No Known Allergies Allergy Verified 12/29/19 23:37 Review of Systems ROS Statement: Those systems with pertinent positive or pertinent negative responses have been documented in the HPI. ROS Other: All systems not noted in ROS Statement are negative. Past Medical History Past Medical History: Asthma, Diabetes Mellitus, GERD/Reflux Additional Past Medical History / Comment(s): Other HX: IDDM type I, gastroparesis History of Any Multi-Drug Resistant Organisms: None Reported Past Surgical History: Cholecystectomy Past Anesthesia/Blood Transfusion Reactions: Postoperative Nausea & Vomiting (PONV) Additional Past Anesthesia/Blood Transfusion Reaction / Comment(s): Pt has never received blood. Past Psychological History: No Psychological Hx Reported Smoking Status: Former smoker Past Alcohol Use History: Occasional Past Drug Use History: Marijuana - Past Family History Father Family Medical History: Diabetes Mellitus, Hypertension Additional Family Medical History / Comment(s): type II diabetes. Mother Family Medical History: COPD Brother(s) Family Medical History: Diabetes Mellitus Additional Family Medical History / Comment(s): IDDM type I Sister(s) Family Medical History: No Reported History General Exam Limitations: no limitations General appearance: alert, in no apparent distress Head exam: Present: atraumatic, normocephalic, normal inspection Eye exam: Present: normal appearance, PERRL, EOMI. Absent: scleral icterus, conjunctival injection, periorbital swelling ENT exam: Present: normal exam, mucous membranes moist Neck exam: Present: normal inspection. Absent: tenderness, meningismus, lymphadenopathy Respiratory exam: Present: normal lung sounds bilaterally. Absent: respiratory distress, wheezes, rales, rhonchi, stridor Cardiovascular Exam: Present: regular rate, normal rhythm, normal heart sounds. Absent: systolic murmur, diastolic murmur, rubs, gallop, clicks GI/Abdominal exam: Present: soft, normal bowel sounds. Absent: distended, tenderness, guarding, rebound, rigid Extremities exam: Present: normal inspection, full ROM, normal capillary refill. Absent: tenderness, pedal edema, joint swelling, calf tenderness Back exam: Present: normal inspection Neurological exam: Present: alert, oriented X3, CN II-XII intact Psychiatric exam: Present: normal affect, normal mood Skin exam: Present: warm, dry, intact, normal color. Absent: rash Course Vital Signs 12/29/19 12/30/19 23:33 01:18 Temperature 98.8 F Pulse Rate 99 80 Respiratory 18 18 Rate Blood Pressure 137/78 116/74 O2 Sat by Pulse 100 98 Oximetry - Reevaluation(s) Reevaluation #1: Medical record is reviewed Patient symptoms are resolved No Active vomiting Patient informed results okay for discharge Medical Decision Making - Medical Decision Making 29 male DF for evaluation gastroenteritis by values otherwise within normal limits in symptoms or management - Lab Data Result diagrams: 12/30/19 00:08 12/30/19 00:08 Lab Results 12/30/19 12/30/1920 Range/Units 00:00 00:08 00:08 WBC 9.5 (3.8-10.6) k/uL RBC 4.95 (4.30-5.90) m/uL Hgb 14.7 (13.0-17.5) gm/dL Hct 44.6 (39.0-53.0) % MCV 90.1 (80.0-100.0) fL MCH 29.7 (25.0-35.0) pg MCHC 33.0 (31.0-37.0) g/dL RDW 12.7 (11.5-15.5) % Plt Count 265 (150-450) k/uL Neutrophils % 64 % Lymphocytes % 24 % Monocytes % 4 % Eosinophils % 6 % Basophils % 1 % Neutrophils # 6.1 (1.3-7.7) k/uL Lymphocytes # 2.3 (1.0-4.8) k/uL Monocytes # 0.3 (0-1.0) k/uL Eosinophils # 0.6 (0-0.7) k/uL Basophils # 0.1 (0-0.2) k/uL VBG pH (7.31-7.41) VBG pCO2 (37-51) mmHg VBG HCO3 (24-28) mmol/L Sodium 136 L (137-145) mmol/L Potassium 4.6 (3.5-5.1) mmol/L Chloride 99 (98-107) mmol/L Carbon Dioxide 30 (22-30) mmol/L Anion Gap 7 mmol/L BUN 16 (9-20) mg/dL Creatinine 0.88 (0.66-1.25) mg/dL Est GFR (CKD-EPI)AfAm >90 (>60 ml/min/1.73 sqM) Est GFR (CKD-EPI)NonAf >90 (>60 ml/min/1.73 sqM) Glucose 199 H (74-99) mg/dL POC Glucose (mg/dL) 230 H (75-99) mg/dL POC Glu Technical Sales Advisor ID Candido Lara Plasma Lactic Acid Elio (0.7-2.0) mmol/L Calcium 9.3 (8.4-10.2) mg/dL Phosphorus 4.6 H (2.5-4.5) mg/dL Magnesium 1.7 (1.6-2.3) mg/dL Total Bilirubin 0.7 (0.2-1.3) mg/dL AST 57 (17-59) U/L ALT 48 (4-49) U/L Alkaline Phosphatase 83 (38-126) U/L Troponin I (0.000-0.034) ng/mL Total Protein 6.6 (6.3-8.2) g/dL Albumin 4.3 (3.5-5.0) g/dL Urine Color Urine Appearance (Clear) Urine pH (5.0-8.0) Ur Specific [place] (1.001-1.035) Urine Protein (Negative) Urine Glucose (UA) (Negative) Urine Ketones (Negative) Urine Blood (Negative) Urine Nitrite (Negative) Urine Bilirubin (Negative) Urine Urobilinogen (<2.0) mg/dL Ur Leukocyte Esterase (Negative) Acetone, Qual Negative (Negative) 12/30/19 12/30/19 12/30/19 Range/Units 00:08 00:08 01:04 WBC (3.8-10.6) k/uL RBC (4.30-5.90) m/uL Hgb (13.0-17.5) gm/dL Hct (39.0-53.0) % MCV (80.0-100.0) fL MCH (25.0-35.0) pg MCHC (31.0-37.0) g/dL RDW (11.5-15.5) % Plt Count (150-450) k/uL Neutrophils % % Lymphocytes % % Monocytes % % Eosinophils % % Basophils % % Neutrophils # (1.3-7.7) k/uL Lymphocytes # (1.0-4.8) k/uL Monocytes # (0-1.0) k/uL Eosinophils # (0-0.7) k/uL Basophils # (0-0.2) k/uL VBG pH 7.35 (7.31-7.41) VBG pCO2 53 H (37-51) mmHg VBG HCO3 28 (24-28) mmol/L Sodium (137-145) mmol/L Potassium (3.5-5.1) mmol/L Chloride (98-107) mmol/L Carbon Dioxide (22-30) mmol/L Anion Gap mmol/L BUN (9-20) mg/dL Creatinine (0.66-1.25) mg/dL Est GFR (CKD-EPI)AfAm (>60 ml/min/1.73 sqM) Est GFR (CKD-EPI)NonAf (>60 ml/min/1.73 sqM) Glucose (74-99) mg/dL POC Glucose (mg/dL) (75-99) mg/dL POC Glu Technical Sales Advisor ID Plasma Lactic Acid Elio 1.9 (0.7-2.0) mmol/L Calcium (8.4-10.2) mg/dL Phosphorus (2.5-4.5) mg/dL Magnesium (1.6-2.3) mg/dL Total Bilirubin (0.2-1.3) mg/dL AST (17-59) U/L ALT (4-49) U/L Alkaline Phosphatase (38-126) U/L Troponin I <0.012 (0.000-0.034) ng/mL Total Protein (6.3-8.2) g/dL Albumin (3.5-5.0) g/dL Urine Color Urine Appearance (Clear) Urine pH (5.0-8.0) Ur Specific [place] (1.001-1.035) Urine Protein (Negative) Urine Glucose (UA) (Negative) Urine Ketones (Negative) Urine Blood (Negative) Urine Nitrite (Negative) Urine Bilirubin (Negative) Urine Urobilinogen (<2.0) mg/dL Ur Leukocyte Esterase (Negative) Acetone, Qual (Negative) 12/30/19 12/30/19 Range/Units 01:53 03:07 WBC (3.8-10.6) k/uL RBC (4.30-5.90) m/uL Hgb (13.0-17.5) gm/dL Hct (39.0-53.0) % MCV (80.0-100.0) fL MCH (25.0-35.0) pg MCHC (31.0-37.0) g/dL RDW (11.5-15.5) % Plt Count (150-450) k/uL Neutrophils % % Lymphocytes % % Monocytes % % Eosinophils % % Basophils % % Neutrophils # (1.3-7.7) k/uL Lymphocytes # (1.0-4.8) k/uL Monocytes # (0-1.0) k/uL Eosinophils # (0-0.7) k/uL Basophils # (0-0.2) k/uL VBG pH (7.31-7.41) VBG pCO2 (37-51) mmHg VBG HCO3 (24-28) mmol/L Sodium (137-145) mmol/L Potassium (3.5-5.1) mmol/L Chloride (98-107) mmol/L Carbon Dioxide (22-30) mmol/L Anion Gap mmol/L BUN (9-20) mg/dL Creatinine (0.66-1.25) mg/dL Est GFR (CKD-EPI)AfAm (>60 ml/min/1.73 sqM) Est GFR (CKD-EPI)NonAf (>60 ml/min/1.73 sqM) Glucose (74-99) mg/dL POC Glucose (mg/dL) 183 H (75-99) mg/dL POC Glu Technical Sales Advisor ID Una Baca Plasma Lactic Acid Elio (0.7-2.0) mmol/L Calcium (8.4-10.2) mg/dL Phosphorus (2.5-4.5) mg/dL Magnesium (1.6-2.3) mg/dL Total Bilirubin (0.2-1.3) mg/dL AST (17-59) U/L ALT (4-49) U/L Alkaline Phosphatase (38-126) U/L Troponin I (0.000-0.034) ng/mL Total Protein (6.3-8.2) g/dL Albumin (3.5-5.0) g/dL Urine Color Light Yellow Urine Appearance Clear (Clear) Urine pH 7.0 (5.0-8.0) Ur Specific [place] 1.013 (1.001-1.035) Urine Protein Negative (Negative) Urine Glucose (UA) Negative (Negative) Urine Ketones Negative (Negative) Urine Blood Negative (Negative) Urine Nitrite Negative (Negative) Urine Bilirubin Negative (Negative) Urine Urobilinogen <2.0 (<2.0) mg/dL Ur Leukocyte Esterase Negative (Negative) Acetone, Qual (Negative) - EKG Data -: EKG Interpreted by Me (EKG is sinus rhythm of 92, DC 142 QRS 88 QTc 450) - Radiology Data Radiology results: report reviewed (X-ray abdominal series with chest is negative for acute disease), image reviewed Disposition Clinical Impression: Nausea & vomiting Disposition: HOME SELF-CARE Condition: Good Instructions (If sedation given, give patient instructions): Acute Nausea and Vomiting (ED) Is patient prescribed a controlled substance at d/c from ED?: No Referrals: Brett Miller MD [Primary Care Provider] - 1-2 days
[2019-12-30 01:12] LABS: VBG PH 7.35 (7.31-7.41)
[2019-12-30 01:19] VITALS: BP 116/74; PULSE 80
--- NOTE | 2019-12-30 01:44 | XR ---
EXAMINATION TYPE: XR abdomen acute w cxr DATE OF EXAM: 12/30/2019 COMPARISON: 11/18/2019 HISTORY: Abdominal pain TECHNIQUE: 4 views FINDINGS: Heart and mediastinum are normal. Lungs are clear. Diaphragm is normal. There are clips from cholecystectomy. There is no sign of intestinal obstruction or pneumoperitoneum. Stomach appears to have normal size. There are no pathologic calcifications over the kidneys. IMPRESSION: Nonacute abdomen. No active cardiopulmonary disease. I do not see evidence for gastropare sis. No change compared to old exam.
[2019-12-30 01:59] LABS: Appearance,Urine Clear (Clear); Bilirubin,Urine Negative (Negative); Blood,Urine Negative (Negative); Color,Urine Light Yellow; Glucose,Urine (UA) Negative (Negative); Ketones,Urine Negative (Negative); Leukocyte Esterase,Urine Negative (Negative); Nitrite,Urine Negative (Negative); Protein,Urine Negative (Negative); Specific Gravity,Urine 1.013 (1.001-1.035); Urobilinogen,Urine <2.0 mg/dL (<2.0)
[2019-12-30 03:09] LABS: Glucose,Whole Blood 183 mg/dL (75-99)
[2019-12-30] MEDS ORDERED: ONDANSETRON 4 MG ODT STARTER PACK 2 TAB BTL PO STA (03:11)
== END 2019-12-30 03:19 | disposition home or self-care (01) ==
LOC: EC 23:29
DX: R11.2 Nausea with vomiting, unspecified (principal); R10.13 Epigastric pain; R63.0 Anorexia; R10.30 Lower abdominal pain, unspecified; E10.9 Type 1 diabetes mellitus without complications; Z90.49 Acquired absence of other specified parts of digestive tract; Z87.19 Personal history of other diseases of the digestive system; Z87.891 Personal history of nicotine dependence; Z79.4 Long term (current) use of insulin
CPT/HCPCS: 36415; 93005; 80053; 82803; 82009; 83605; 83735; 84100; 84484; 85025; 81003; 74022; 99284; 96374; 96375 ×3; 96361 ×3; J2270; J2765; J2405; S0119; C9113

== ENCOUNTER 2020-01-07 12:44 | Emergency (ER) | payer OTHER ==
[2020-01-07] MEDS ORDERED: SODIUM CHLORIDE 0.9% 500 ML 500 ML IV STA (13:10)
[2020-01-07] MEDS ORDERED: MAG HYDROX/AL HYDROX/SIMETH 30 ML, HYOSCYAMINE ELIXIR 10 ML, LIDOCAINE VISCOUS 2% 10 ML PO STA ×3 (13:28)
--- NOTE | 2020-01-07 13:47 | ED ---
General Adult HPI - General Chief complaint: Chest Pain Stated complaint: SOB, chest pain Time Seen by Provider: 01/07/20 12:57 Source: patient, RN notes reviewed, old records reviewed Mode of arrival: ambulatory Limitations: no limitations - History of Present Illness Initial comments: 29 -year-old male presenting for evaluation of epigastric abdominal pain and chest pain. Patient has history of type 1 diabetes. He states that about one hour prior to arrival he developed some epigastric pain and chest pain. Described this as a pressure sensation. He has no known history of coronary artery disease or DVT or PE. He denies vomiting. Denies diaphoresis. Patient was at work at the time. - Related Data Home Medications Medication Instructions Recorded Confirmed Insulin Lispro [Admelog] See Protocol SQ AC-TID 07/02/19 01/07/20 Insulin Glargine,Hum.rec.anlog 20 unit SQ HS 09/01/19 01/07/20 [Basaglar Kwikpen U-100] Omeprazole Magnesium [PriLOSEC OTC] 20 mg PO DAILY PRN 01/07/20 01/07/20 Previous Rx's Medication Instructions Recorded Ondansetron Odt [Zofran Odt] 4 mg PO Q8HR PRN #14 tab 09/15/19 Allergies Allergy/AdvReac Type Severity Reaction Status Date / Time No Known Allergies Allergy Verified 01/07/20 13:26 Review of Systems ROS Statement: Those systems with pertinent positive or pertinent negative responses have been documented in the HPI. ROS Other: All systems not noted in ROS Statement are negative. Past Medical History Past Medical History: Asthma, Diabetes Mellitus, GERD/Reflux Additional Past Medical History / Comment(s): Other HX: IDDM type I, gastroparesis History of Any Multi-Drug Resistant Organisms: None Reported Past Surgical History: Cholecystectomy Past Anesthesia/Blood Transfusion Reactions: Postoperative Nausea & Vomiting (PONV) Additional Past Anesthesia/Blood Transfusion Reaction / Comment(s): Pt has never received blood. Past Psychological History: No Psychological Hx Reported Smoking Status: Former smoker Past Alcohol Use History: Occasional Past Drug Use History: Marijuana - Past Family History Father Family Medical History: Diabetes Mellitus, Hypertension Additional Family Medical History / Comment(s): type II diabetes. Mother Family Medical History: COPD Brother(s) Family Medical History: Diabetes Mellitus Additional Family Medical History / Comment(s): IDDM type I Sister(s) Family Medical History: No Reported History General Exam Limitations: no limitations General appearance: alert, in no apparent distress Head exam: Present: atraumatic, normocephalic Eye exam: Present: normal appearance, PERRL ENT exam: Present: normal exam Neck exam: Present: normal inspection. Absent: tenderness, meningismus Respiratory exam: Present: normal lung sounds bilaterally. Absent: respiratory distress, wheezes Cardiovascular Exam: Present: regular rate, normal rhythm GI/Abdominal exam: Present: soft, distended Extremities exam: Present: normal inspection, normal capillary refill. Absent: pedal edema Neurological exam: Present: alert, oriented X3, CN II-XII intact. Absent: motor sensory deficit Psychiatric exam: Present: normal affect, normal mood Skin exam: Present: warm, dry, intact. Absent: cyanosis, diaphoretic Course Vital Signs 01/07/20 01/07/20 12:50 13:20 Temperature 98.1 F Pulse Rate 95 Pulse Rate [ 79 Computerized Table Cutter ] Respiratory 16 18 Rate Blood Pressure 109/62 O2 Sat by Pulse 99 Oximetry EKG Findings - EKG Comments: EKG Findings:: EKG: Normal sinus rhythm, rate of 86, TX interval 144, QRS duration 92, QTC [address] segment elevation. Medical Decision Making - Medical Decision Making 29-year-old male with chest pain, epigastric pain history of type 1 diabetes and gastroparesis. No vomiting. Patient is well-appearing with stable vitals. He has chest x-ray for acute cardiopulmonary disease. EKG is nonischemic. CBC is unremarkable, CMP shows normal acid-base balance, no DKA, mildly elevated blood sugar. Patient has a negative troponin, negative d-dimer. He is feeling better after GI cocktail with no episodes of vomiting or worsening pain. His pain is resolved. He will be discharged home at this time with close outpatient follow- up. - Lab Data Result diagrams: 01/07/20 13:41 01/07/20 13:41 Lab Results 01/07/20 01/07/20 01/07/20 Range/Units 13:41 13:41 13:41 WBC 5.9 (3.8-10.6) k/uL RBC 5.03 (4.30-5.90) m/uL Hgb 15.1 (13.0-17.5) gm/dL Hct 44.1 (39.0-53.0) % MCV 87.7 (80.0-100.0) fL MCH 30.0 (25.0-35.0) pg MCHC 34.2 (31.0-37.0) g/dL RDW 12.4 (11.5-15.5) % Plt Count 263 (150-450) k/uL Neutrophils % 58 % Lymphocytes % 27 % Monocytes % 5 % Eosinophils % 8 % Basophils % 1 % Neutrophils # 3.5 (1.3-7.7) k/uL Lymphocytes # 1.6 (1.0-4.8) k/uL Monocytes # 0.3 (0-1.0) k/uL Eosinophils # 0.5 (0-0.7) k/uL Basophils # 0.1 (0-0.2) k/uL PT 9.6 (9.0-12.0) sec INR 0.9 (<1.2) APTT 22.3 (22.0-30.0) sec D-Dimer <0.17 (<0.60) mg/L FEU Sodium 136 L (137-145) mmol/L Potassium 4.0 (3.5-5.1) mmol/L Chloride 100 (98-107) mmol/L Carbon Dioxide 26 (22-30) mmol/L Anion Gap 10 mmol/L BUN 15 (9-20) mg/dL Creatinine 0.65 L (0.66-1.25) mg/dL Est GFR (CKD-EPI)AfAm >90 (>60 ml/min/1.73 sqM) Est GFR (CKD-EPI)NonAf >90 (>60 ml/min/1.73 sqM) Glucose 146 H (74-99) mg/dL Calcium 9.8 (8.4-10.2) mg/dL Magnesium 1.7 (1.6-2.3) mg/dL Total Bilirubin 0.6 (0.2-1.3) mg/dL AST 42 (17-59) U/L ALT 43 (4-49) U/L Alkaline Phosphatase 93 (38-126) U/L Troponin I (0.000-0.034) ng/mL NT-Pro-B Natriuret Pep pg/mL Total Protein 7.3 (6.3-8.2) g/dL Albumin 4.7 (3.5-5.0) g/dL Lipase 107 (23-300) U/L 01/07/20 01/07/20 Range/Units 13:41 13:41 WBC (3.8-10.6) k/uL RBC (4.30-5.90) m/uL Hgb (13.0-17.5) gm/dL Hct (39.0-53.0) % MCV (80.0-100.0) fL MCH (25.0-35.0) pg MCHC (31.0-37.0) g/dL RDW (11.5-15.5) % Plt Count (150-450) k/uL Neutrophils % % Lymphocytes % % Monocytes % % Eosinophils % % Basophils % % Neutrophils # (1.3-7.7) k/uL Lymphocytes # (1.0-4.8) k/uL Monocytes # (0-1.0) k/uL Eosinophils # (0-0.7) k/uL Basophils # (0-0.2) k/uL PT (9.0-12.0) sec INR (<1.2) APTT (22.0-30.0) sec D-Dimer (<0.60) mg/L FEU Sodium (137-145) mmol/L Potassium (3.5-5.1) mmol/L Chloride (98-107) mmol/L Carbon Dioxide (22-30) mmol/L Anion Gap mmol/L BUN (9-20) mg/dL Creatinine (0.66-1.25) mg/dL Est GFR (CKD-EPI)AfAm (>60 ml/min/1.73 sqM) Est GFR (CKD-EPI)NonAf (>60 ml/min/1.73 sqM) Glucose (74-99) mg/dL Calcium (8.4-10.2) mg/dL Magnesium (1.6-2.3) mg/dL Total Bilirubin (0.2-1.3) mg/dL AST (17-59) U/L ALT (4-49) U/L Alkaline Phosphatase (38-126) U/L Troponin I <0.012 (0.000-0.034) ng/mL NT-Pro-B Natriuret Pep 19 pg/mL Total Protein (6.3-8.2) g/dL Albumin (3.5-5.0) g/dL Lipase (23-300) U/L Disposition Clinical Impression: Chest pain Disposition: HOME SELF-CARE Condition: Good Instructions (If sedation given, give patient instructions): Chest Pain (ED) Is patient prescribed a controlled substance at d/c from ED?: No Referrals: Brett Miller MD [Primary Care Provider] - 1-2 days Time of Disposition: 15:02
[2020-01-07 14:00] LABS: Basophils # (A) 0.1 k/uL (0-0.2); Basophils % (A) 1 %; Eosinophils # (A) 0.5 k/uL (0-0.7); Eosinophils % (A) 8 %; HCT 44.1 % (39.0-53.0); HGB 15.1 gm/dL (13.0-17.5); Lymphocytes # (A) 1.6 k/uL (1.0-4.8); Lymphocytes % (A) 27 %; MCHC 34.2 g/dL (31.0-37.0); MCV 87.7 fL (80.0-100.0); Mean Platelet Volume 7.9; Monocytes # (A) 0.3 k/uL (0-1.0); Monocytes % (A) 5 %; Neutrophils # (A) 3.5 k/uL (1.3-7.7); Neutrophils % (A) 58 %; Platelet Count 263 k/uL (150-450); RBC 5.03 m/uL (4.30-5.90); RDW 12.4 % (11.5-15.5); WBC 5.9 k/uL (3.8-10.6)
[2020-01-07 14:14] LABS: ALT 43 U/L (4-49); AST 42 U/L (17-59); African American GFR (CKD) >90 (>60 ml/min/1.73 sqM); Albumin 4.7 g/dL (3.5-5.0); Alkaline Phosphatase 93 U/L (38-126); Anion Gap 10 mmol/L; Blood Urea Nitrogen 15 mg/dL (9-20); Calcium 9.8 mg/dL (8.4-10.2); Carbon Dioxide 26 mmol/L (22-30); Chloride 100 mmol/L (98-107); Glucose 146 mg/dL (74-99); Magnesium 1.7 mg/dL (1.6-2.3); Non-African American GFR(CKD) >90 (>60 ml/min/1.73 sqM); Sodium 136 mmol/L (137-145); Total Bilirubin 0.6 mg/dL (0.2-1.3); Total Protein 7.3 g/dL (6.3-8.2)
--- NOTE | 2020-01-07 14:15 | XR ---
EXAMINATION TYPE: XR chest 2V DATE OF EXAM: 01/07/2020 COMPARISON: NONE HISTORY: Chest pain TECHNIQUE: Frontal and lateral views of the chest are obtained. FINDINGS: There is no focal air space opacity, pleural effusion, or pneumothorax seen. The cardiac silhouette size is within normal limits. The osseous structures are intact. IMPRESSION: No acute cardiopulmonary process.
[2020-01-07 14:27] LABS: D-Dimer <0.17 mg/L FEU (<0.60); INR 0.9 (<1.2); Partial Thromboplastin Time 22.3 sec (22.0-30.0); Prothrombin Time 9.6 sec (9.0-12.0)
[2020-01-07 15:34] VITALS: BP 125/87; PULSE 82; RESP 16; TEMP 98
== END 2020-01-07 15:34 | disposition home or self-care (01) ==
LOC: EC 12:44
DX: R07.9 Chest pain, unspecified (principal); R06.02 Shortness of breath; R10.13 Epigastric pain; E10.43 Type 1 diabetes mellitus with diabetic autonomic (poly)neuropathy; K31.84 Gastroparesis; E10.65 Type 1 diabetes mellitus with hyperglycemia; K21.9 Gastro-esophageal reflux disease without esophagitis; Z79.4 Long term (current) use of insulin; Z87.891 Personal history of nicotine dependence
CPT/HCPCS: 36415; 71046; 80053; 83690; 83735; 83880; 84484; 85025; 85379; 85610; 85730; 93005; 96360; 99285

== ENCOUNTER 2020-01-21 06:19 | Emergency (ER) | payer OTHER ==
[2020-01-21] MEDS ORDERED: ONDANSETRON 4 MG/2 ML VIAL IVP STA (06:40)
[2020-01-21] MEDS ORDERED: MAG HYDROX/AL HYDROX/SIMETH 30 ML, HYOSCYAMINE ELIXIR 10 ML, LIDOCAINE VISCOUS 2% 10 ML PO STA ×3 (06:40)
[2020-01-21] MEDS ORDERED: FAMOTIDINE 20 MG/2 ML VIAL IV STA (06:40)
--- NOTE | 2020-01-21 06:43 | ED ---
Chest Pain HPI - General Chief Complaint: Chest Pain Stated Complaint: Chest Pain, Nausea Time Seen by Provider: 01/21/20 06:28 Source: patient, RN notes reviewed, old records reviewed Mode of arrival: ambulatory Limitations: no limitations - History of Present Illness Initial Comments: 29-year-old male history of diabetes presents for his relative to what hours of epigastric abdominal pain and nausea. Patient reports that he did eat pizza last night for dinner. Patient states that he woke up with this abdominal pain and just discomfort sided come to the ER. Did not take any antacid medication prior to arrival. Patient denies any diarrhea. - Related Data Home Medications Medication Instructions Recorded Confirmed Insulin Lispro [Admelog] See Protocol SQ AC-TID 07/02/19 01/07/20 Insulin Glargine,Hum.rec.anlog 20 unit SQ HS 09/01/19 01/07/20 [Basaglar Kwikpen U-100] Omeprazole Magnesium [PriLOSEC OTC] 20 mg PO DAILY PRN 01/07/20 01/07/20 Previous Rx's Medication Instructions Recorded Ondansetron Odt [Zofran Odt] 4 mg PO Q8HR PRN #14 tab 09/15/19 Ondansetron Odt [Zofran Odt] 4 mg PO Q8HR PRN #12 tab 01/21/20 Allergies Allergy/AdvReac Type Severity Reaction Status Date / Time No Known Allergies Allergy Verified 01/21/20 06:26 Review of Systems ROS Statement: Those systems with pertinent positive or pertinent negative responses have been documented in the HPI. ROS Other: All systems not noted in ROS Statement are negative. EKG Findings - EKG Comments: EKG Findings:: EKG shows normal sinus rhythm normal EKG. Ventricular rate is 70 bpm. Pulse 152 ms. QS duration is 98 ms. QT QTc is 370/421 ms. Past Medical History Past Medical History: Asthma, Diabetes Mellitus, GERD/Reflux Additional Past Medical History / Comment(s): Other HX: IDDM type I, gastroparesis History of Any Multi-Drug Resistant Organisms: None Reported Past Surgical History: Cholecystectomy Past Anesthesia/Blood Transfusion Reactions: Postoperative Nausea & Vomiting (PONV) Additional Past Anesthesia/Blood Transfusion Reaction / Comment(s): Pt has never received blood. Past Psychological History: No Psychological Hx Reported Smoking Status: Former smoker Past Alcohol Use History: None Reported Past Drug Use History: Marijuana - Past Family History Father Family Medical History: Diabetes Mellitus, Hypertension Additional Family Medical History / Comment(s): type II diabetes. Mother Family Medical History: COPD Brother(s) Family Medical History: Diabetes Mellitus Additional Family Medical History / Comment(s): IDDM type I Sister(s) Family Medical History: No Reported History General Exam - General Exam Comments Initial Comments: 29 year old male, no distress. Limitations: no limitations General appearance: alert, in no apparent distress Head exam: Present: atraumatic, normocephalic, normal inspection Eye exam: Present: normal appearance, PERRL, EOMI. Absent: scleral icterus, conjunctival injection, periorbital swelling ENT exam: Present: normal exam, mucous membranes moist Neck exam: Present: normal inspection. Absent: tenderness, meningismus, lymphadenopathy Respiratory exam: Present: normal lung sounds bilaterally. Absent: respiratory distress, wheezes, rales, rhonchi, stridor Cardiovascular Exam: Present: regular rate, normal rhythm, normal heart sounds. Absent: systolic murmur, diastolic murmur, rubs, gallop, clicks GI/Abdominal exam: Present: soft, tenderness (epigastric tenderness), normal bowel sounds. Absent: distended, guarding, rebound, rigid Extremities exam: Present: normal inspection, full ROM Back exam: Present: normal inspection Neurological exam: Present: alert, oriented X3, CN II-XII intact Psychiatric exam: Present: normal affect, normal mood Skin exam: Present: warm, dry, intact, normal color. Absent: rash Course Vital Signs 01/21/20 01/21/20 06:22 06:49 Temperature 98.1 F Pulse Rate 82 Respiratory 18 18 Rate Blood Pressure 121/79 O2 Sat by Pulse 99 Oximetry Chest Pain MDM - MDM This is a 29-year-old male presents for short stay for epigastric abdominal pain nausea. Patient is a diabetic with history of gastric paresis. He's had abdominal pain for 2 hours. He was given IV fluids and GI cocktail and Zofran. Reevaluation is resting comfortably bed. Labs were otherwise unremarkable and EKG shows no changes. Patient informed to take his omeprazole and advised to have close follow-up with primary care doctor. Questions were answered. Discussed the case with Dr. Koo. Disposition Clinical Impression: Nausea, Epigastric pain Disposition: HOME SELF-CARE Condition: Good Instructions (If sedation given, give patient instructions): Gastritis (ED) Additional Instructions: Please use medication as discussed. Please follow up with family doctor if symptoms have not improved over the next two days. Please return to the emergency room if your symptoms increase or worsen or for any other concerns. Prescriptions: Ondansetron Odt [Zofran Odt] 4 mg PO Q8HR PRN #12 tab PRN Reason: Nausea Is patient prescribed a controlled substance at d/c from ED?: No Referrals: Brett Miller MD [Primary Care Provider] - 1-2 days Time of Disposition: 07:33
[2020-01-21 06:52] LABS: Basophils # (A) 0.1 k/uL (0-0.2); Basophils % (A) 1 %; Eosinophils # (A) 0.6 k/uL (0-0.7); Eosinophils % (A) 8 %; HCT 44.7 % (39.0-53.0); HGB 15.1 gm/dL (13.0-17.5); Lymphocytes # (A) 2.4 k/uL (1.0-4.8); Lymphocytes % (A) 33 %; MCH 29.7 pg (25.0-35.0); MCHC 33.7 g/dL (31.0-37.0); MCV 88.1 fL (80.0-100.0); Mean Platelet Volume 7.7; Monocytes # (A) 0.3 k/uL (0-1.0); Monocytes % (A) 4 %; Neutrophils # (A) 3.8 k/uL (1.3-7.7); Neutrophils % (A) 52 %; Platelet Count 254 k/uL (150-450); RBC 5.08 m/uL (4.30-5.90); RDW 12.6 % (11.5-15.5); WBC 7.3 k/uL (3.8-10.6)
[2020-01-21 07:04] LABS: ALT 34 U/L (4-49); AST 28 U/L (17-59); African American GFR (CKD) >90 (>60 ml/min/1.73 sqM); Albumin 4.6 g/dL (3.5-5.0); Alkaline Phosphatase 102 U/L (38-126); Anion Gap 12 mmol/L; Blood Urea Nitrogen 18 mg/dL (9-20); Calcium 9.8 mg/dL (8.4-10.2); Carbon Dioxide 28 mmol/L (22-30); Chloride 98 mmol/L (98-107); Glucose 167 mg/dL (74-99); Non-African American GFR(CKD) >90 (>60 ml/min/1.73 sqM); Potassium 3.9 mmol/L (3.5-5.1); Sodium 138 mmol/L (137-145); Total Bilirubin 0.8 mg/dL (0.2-1.3); Total Protein 6.9 g/dL (6.3-8.2)
[2020-01-21] MEDS ORDERED: SODIUM CHLORIDE 0.9% 1,000 ML IV ONE (07:04)
[2020-01-21] MEDS ORDERED: METOCLOPRAMIDE 5 MG/ML 2 ML VIAL IVP STA (07:38)
[2020-01-21] MEDS ORDERED: diphenhydrAMINE 50 MG/ML 1 ML VIAL IVP STA (07:38)
[2020-01-21] MEDS ORDERED: ONDANSETRON 4 MG ODT STARTER PACK 2 TAB BTL PO STA (08:29)
[2020-01-21 10:38] VITALS: BP 121/79; PULSE 82; RESP 18; TEMP 98.1
== END 2020-01-21 08:45 | disposition home or self-care (01) ==
LOC: EC 06:19
DX: R10.13 Epigastric pain (principal); R11.0 Nausea; E10.9 Type 1 diabetes mellitus without complications; K21.9 Gastro-esophageal reflux disease without esophagitis; Z79.4 Long term (current) use of insulin; Z79.899 Other long term (current) drug therapy; Z90.49 Acquired absence of other specified parts of digestive tract; Z87.19 Personal history of other diseases of the digestive system; Z87.891 Personal history of nicotine dependence; Z20.828 Contact with and (suspected) exposure to other viral communicable diseases
CPT/HCPCS: 36415; 93005; 80053; 83690; 85025; 99285; 96374; 96375 ×3; 96361; U0003; J1200; J2765; J2405; S0119

== ENCOUNTER 2020-03-19 02:53 | Emergency (ER) | payer OTHER ==
[2020-03-19 03:01] VITALS: RESP 16; TEMP 98.3
[2020-03-19 03:07] LABS: Glucose,Whole Blood 357 mg/dL (75-99)
[2020-03-19] MEDS ORDERED: SODIUM CHLORIDE 0.9% 500 ML 500 ML IV STA (03:18)
[2020-03-19] MEDS ORDERED: LORazepam 2 MG/ML INJ IV STA (03:42)
[2020-03-19 03:44] LABS: Basophils # (A) 0.1 k/uL (0-0.2); Basophils % (A) 1 %; Eosinophils # (A) 0.5 k/uL (0-0.7); Eosinophils % (A) 7 %; HCT 42.4 % (39.0-53.0); Lymphocytes # (A) 2.9 k/uL (1.0-4.8); Lymphocytes % (A) 37 %; MCH 29.5 pg (25.0-35.0); MCV 89.5 fL (80.0-100.0); Mean Platelet Volume 7.7; Monocytes # (A) 0.4 k/uL (0-1.0); Monocytes % (A) 5 %; Neutrophils # (A) 3.7 k/uL (1.3-7.7); Neutrophils % (A) 48 %; Platelet Count 256 k/uL (150-450); RBC 4.74 m/uL (4.30-5.90); WBC 7.8 k/uL (3.8-10.6)
[2020-03-19 03:58] LABS: African American GFR (CKD) >90 (>60 ml/min/1.73 sqM); Anion Gap 10 mmol/L; Blood Urea Nitrogen 13 mg/dL (9-20); Calcium 8.8 mg/dL (8.4-10.2); Carbon Dioxide 22 mmol/L (22-30); Chloride 101 mmol/L (98-107); Glucose 344 mg/dL (74-99); Non-African American GFR(CKD) >90 (>60 ml/min/1.73 sqM); Sodium 133 mmol/L (137-145)
[2020-03-19] MEDS ORDERED: INSULIN REGULAR 100 UNIT/ML VIAL SQ STA (04:15)
[2020-03-19 04:16] LABS: Glucose,Whole Blood 381 mg/dL (75-99)
[2020-03-19] MEDS ORDERED: SODIUM CHLORIDE 0.9% 1,000 ML IV ONE ×2 (04:16)
[2020-03-19 04:31] LABS: Appearance,Urine Clear (Clear); Bilirubin,Urine Negative (Negative); Blood,Urine Negative (Negative); Color,Urine Colorless; Glucose,Urine (UA) 4+ (Negative); Ketones,Urine Negative (Negative); Leukocyte Esterase,Urine Negative (Negative); Nitrite,Urine Negative (Negative); Protein,Urine Negative (Negative); Specific Gravity,Urine 1.003 (1.001-1.035); Urobilinogen,Urine <2.0 mg/dL (<2.0)
[2020-03-19 04:50] LABS: Glucose,Whole Blood 258 mg/dL (75-99)
[2020-03-19 05:26] LABS: Glucose,Whole Blood 176 mg/dL (75-99)
[2020-03-19 06:13] LABS: Glucose,Whole Blood 136 mg/dL (75-99)
--- NOTE | 2020-03-19 06:21 | ED ---
General Adult HPI - General Chief complaint: Recheck/Abnormal Lab/Rx Stated complaint: Chest Pain Time Seen by Provider: 03/19/20 03:17 Source: patient, family Mode of arrival: wheelchair Limitations: no limitations - History of Present Illness Initial comments: This patient is a 30-year-old man with history diabetes who presents to be evaluated for constellation of symptoms that included a feeling of chest tightness on the left side, feeling dizzy, and anxious. Patient's mother states that he also appeared to be sweaty. The symptoms had come on over the past 2 or 3 hours. He was concerned about his sugar being low so he did eat something. They did check the blood sugar and it was reported to be 87. -: hour(s) Location: chest Radiation: non-radiation Quality: other (Tightness) Consistency: constant Improves with: other (Taking deep breath) Worsens with: none Treatments Prior to Arrival: none - Related Data Home Medications Medication Instructions Recorded Confirmed Insulin Lispro [Admelog] See Protocol SQ ACHS 07/02/19 01/21/20 Insulin Glargine,Hum.rec.anlog 20 unit SQ HS 09/01/19 01/21/20 [Basaglar Kwikpen U-100] Omeprazole Magnesium [PriLOSEC OTC] 20 mg PO DAILY 01/07/20 01/21/20 Metoclopramide [Reglan] 10 mg PO DAILY PRN 01/21/20 01/21/20 Previous Rx's Medication Instructions Recorded Ondansetron Odt [Zofran Odt] 4 mg PO Q8HR PRN #12 tab 01/21/20 Allergies Allergy/AdvReac Type Severity Reaction Status Date / Time No Known Allergies Allergy Verified 03/19/20 03:01 Review of Systems ROS Statement: Those systems with pertinent positive or pertinent negative responses have been documented in the HPI. ROS Other: All systems not noted in ROS Statement are negative. Constitutional: Denies: fever, chills Respiratory: Denies: cough, dyspnea Cardiovascular: Reports: as per HPI, chest pain. Denies: palpitations, orthopnea, edema, syncope Gastrointestinal: Denies: abdominal pain, nausea, vomiting Genitourinary: Denies: dysuria, frequency, hematuria Musculoskeletal: Denies: back pain Skin: Denies: rash Neurological: Denies: headache, weakness, numbness Psychiatric: Reports: anxiety Past Medical History Past Medical History: Asthma, Diabetes Mellitus, GERD/Reflux Additional Past Medical History / Comment(s): Other HX: IDDM type I, gastroparesis History of Any Multi-Drug Resistant Organisms: None Reported Past Surgical History: Cholecystectomy Past Anesthesia/Blood Transfusion Reactions: Postoperative Nausea & Vomiting (PONV) Additional Past Anesthesia/Blood Transfusion Reaction / Comment(s): Pt has never received blood. Past Psychological History: No Psychological Hx Reported Smoking Status: Current every day smoker Past Alcohol Use History: None Reported Past Drug Use History: Marijuana - Past Family History Father Family Medical History: Diabetes Mellitus, Hypertension Additional Family Medical History / Comment(s): type II diabetes. Mother Family Medical History: COPD Brother(s) Family Medical History: Diabetes Mellitus Additional Family Medical History / Comment(s): IDDM type I Sister(s) Family Medical History: No Reported History General Exam Limitations: no limitations General appearance: alert, in no apparent distress Head exam: Present: atraumatic, normocephalic Eye exam: Present: normal appearance. Absent: scleral icterus, conjunctival injection ENT exam: Present: mucous membranes dry Neck exam: Present: normal inspection Respiratory exam: Present: normal lung sounds bilaterally. Absent: respiratory distress, wheezes, rales, rhonchi, stridor Cardiovascular Exam: Present: normal rhythm, tachycardia, systolic murmur (Grade 2/6 systolic ejection murmur). Absent: diastolic murmur, rubs, gallop GI/Abdominal exam: Present: soft. Absent: distended, tenderness, guarding, rebound, rigid, mass Extremities exam: Present: normal inspection, normal capillary refill. Absent: pedal edema, calf tenderness Back exam: Present: normal inspection. Absent: CVA tenderness (R), CVA tenderness (L) Neurological exam: Present: alert Skin exam: Present: warm, dry, intact, normal color. Absent: rash Course Vital Signs 03/19/20 03/19/20 02:58 06:28 Temperature 98.3 F Pulse Rate 117 H 95 Respiratory 16 16 Rate Blood Pressure 152/78 122/66 O2 Sat by Pulse 100 98 Oximetry Medical Decision Making - Medical Decision Making Patient is 30-year-old man with diabetes who is found to be moderately hyperglycemic. I patient is given insulin and fluids and serial Accu-Cheks are performed. The symptoms did improve with treatment and he is feeling like she would like to go home. Discussed appropriate further care and follow-up as well as return parameters. - Lab Data Result diagrams: 03/19/20 03:36 03/19/20 03:36 Lab Results 03/19/20 03/19/20 03/19/20 Range/Units 03:05 03:36 03:36 WBC 7.8 (3.8-10.6) k/uL RBC 4.74 (4.30-5.90) m/uL Hgb 14.0 (13.0-17.5) gm/dL Hct 42.4 (39.0-53.0) % MCV 89.5 (80.0-100.0) fL MCH 29.5 (25.0-35.0) pg MCHC 33.0 (31.0-37.0) g/dL RDW 13.0 (11.5-15.5) % Plt Count 256 (150-450) k/uL Neutrophils % 48 % Lymphocytes % 37 % Monocytes % 5 % Eosinophils % 7 % Basophils % 1 % Neutrophils # 3.7 (1.3-7.7) k/uL Lymphocytes # 2.9 (1.0-4.8) k/uL Monocytes # 0.4 (0-1.0) k/uL Eosinophils # 0.5 (0-0.7) k/uL Basophils # 0.1 (0-0.2) k/uL Sodium (137-145) mmol/L Potassium (3.5-5.1) mmol/L Chloride (98-107) mmol/L Carbon Dioxide (22-30) mmol/L Anion Gap mmol/L BUN (9-20) mg/dL Creatinine (0.66-1.25) mg/dL Est GFR (CKD-EPI)AfAm (>60 ml/min/1.73 sqM) Est GFR (CKD-EPI)NonAf (>60 ml/min/1.73 sqM) Glucose (74-99) mg/dL POC Glucose (mg/dL) 357 H (75-99) mg/dL POC Glu Arborist Representative ID Breanna, Lissa Calcium (8.4-10.2) mg/dL Urine Color Colorless Urine Appearance Clear (Clear) Urine pH 7.0 (5.0-8.0) Ur Specific [place] 1.003 (1.001-1.035) Urine Protein Negative (Negative) Urine Glucose (UA) 4+ H (Negative) Urine Ketones Negative (Negative) Urine Blood Negative (Negative) Urine Nitrite Negative (Negative) Urine Bilirubin Negative (Negative) Urine Urobilinogen <2.0 (<2.0) mg/dL Ur Leukocyte Esterase Negative (Negative) Acetone, Qual (Negative) 03/19/20 03/19/20 03/19/20 Range/Units 03:36 04:13 04:48 WBC (3.8-10.6) k/uL RBC (4.30-5.90) m/uL Hgb (13.0-17.5) gm/dL Hct (39.0-53.0) % MCV (80.0-100.0) fL MCH (25.0-35.0) pg MCHC (31.0-37.0) g/dL RDW (11.5-15.5) % Plt Count (150-450) k/uL Neutrophils % % Lymphocytes % % Monocytes % % Eosinophils % % Basophils % % Neutrophils # (1.3-7.7) k/uL Lymphocytes # (1.0-4.8) k/uL Monocytes # (0-1.0) k/uL Eosinophils # (0-0.7) k/uL Basophils # (0-0.2) k/uL Sodium 133 L (137-145) mmol/L Potassium 4.0 (3.5-5.1) mmol/L Chloride 101 (98-107) mmol/L Carbon Dioxide 22 (22-30) mmol/L Anion Gap 10 mmol/L BUN 13 (9-20) mg/dL Creatinine 0.83 (0.66-1.25) mg/dL Est GFR (CKD-EPI)AfAm >90 (>60 ml/min/1.73 sqM) Est GFR (CKD-EPI)NonAf >90 (>60 ml/min/1.73 sqM) Glucose 344 H (74-99) mg/dL POC Glucose (mg/dL) 381 H 258 H (75-99) mg/dL POC Glu Arborist Representative ID Natacha PalomoolsNatacha Calcium 8.8 (8.4-10.2) mg/dL Urine Color Urine Appearance (Clear) Urine pH (5.0-8.0) Ur Specific [place] (1.001-1.035) Urine Protein (Negative) Urine Glucose (UA) (Negative) Urine Ketones (Negative) Urine Blood (Negative) Urine Nitrite (Negative) Urine Bilirubin (Negative) Urine Urobilinogen (<2.0) mg/dL Ur Leukocyte Esterase (Negative) Acetone, Qual Negative (Negative) 03/19/20 03/19/20 Range/Units 05:24 06:11 WBC (3.8-10.6) k/uL RBC (4.30-5.90) m/uL Hgb (13.0-17.5) gm/dL Hct (39.0-53.0) % MCV (80.0-100.0) fL MCH (25.0-35.0) pg MCHC (31.0-37.0) g/dL RDW (11.5-15.5) % Plt Count (150-450) k/uL Neutrophils % % Lymphocytes % % Monocytes % % Eosinophils % % Basophils % % Neutrophils # (1.3-7.7) k/uL Lymphocytes # (1.0-4.8) k/uL Monocytes # (0-1.0) k/uL Eosinophils # (0-0.7) k/uL Basophils # (0-0.2) k/uL Sodium (137-145) mmol/L Potassium (3.5-5.1) mmol/L Chloride (98-107) mmol/L Carbon Dioxide (22-30) mmol/L Anion Gap mmol/L BUN (9-20) mg/dL Creatinine (0.66-1.25) mg/dL Est GFR (CKD-EPI)AfAm (>60 ml/min/1.73 sqM) Est GFR (CKD-EPI)NonAf (>60 ml/min/1.73 sqM) Glucose (74-99) mg/dL POC Glucose (mg/dL) 176 H 136 H (75-99) mg/dL POC Glu Arborist Representative ID Palomo Natacha Palomo Natacha Calcium (8.4-10.2) mg/dL Urine Color Urine Appearance (Clear) Urine pH (5.0-8.0) Ur Specific [place] (1.001-1.035) Urine Protein (Negative) Urine Glucose (UA) (Negative) Urine Ketones (Negative) Urine Blood (Negative) Urine Nitrite (Negative) Urine Bilirubin (Negative) Urine Urobilinogen (<2.0) mg/dL Ur Leukocyte Esterase (Negative) Acetone, Qual (Negative) Disposition Clinical Impression: Hyperglycemia Disposition: HOME SELF-CARE Condition: Stable Instructions (If sedation given, give patient instructions): Diabetes and Nutrition (ED) Additional Instructions: Return to the ER if symptoms worsen. Follow-up with PCP. Is patient prescribed a controlled substance at d/c from ED?: No Referrals: Brett Miller MD [Primary Care Provider] - 1-2 days
[2020-03-19 06:29] VITALS: BP 122/66; PULSE 95
== END 2020-03-19 06:28 | disposition home or self-care (01) ==
LOC: EC 02:53
DX: E11.65 Type 2 diabetes mellitus with hyperglycemia (principal); R07.9 Chest pain, unspecified; K21.9 Gastro-esophageal reflux disease without esophagitis; F17.200 Nicotine dependence, unspecified, uncomplicated; Z79.4 Long term (current) use of insulin; Z79.899 Other long term (current) drug therapy; Z87.19 Personal history of other diseases of the digestive system; Z90.49 Acquired absence of other specified parts of digestive tract
CPT/HCPCS: 99284; 96374; 96361 ×2; 36415; 80048; 82009; 85025; 81003; J2060

== ENCOUNTER 2020-03-30 12:05 | Emergency (ER) | payer OTHER ==
[2020-03-30 12:10] LABS: Glucose,Whole Blood 390 mg/dL (75-99)
[2020-03-30 12:11] VITALS: TEMP 98.1
[2020-03-30] MEDS ORDERED: SODIUM CHLORIDE 0.9% 1,000 ML IV STA (12:16)
--- NOTE | 2020-03-30 12:24 | ED ---
Recheck HPI - General Chief Complaint: Recheck/Abnormal Lab/Rx Stated Complaint: Blood sugar issues Time Seen by Provider: 03/30/20 12:14 Source: patient Mode of arrival: ambulatory Limitations: no limitations - History of Present Illness Initial Comments: Patient is a 30-year-old male with history of type 1 diabetes presenting to the emergency department with a chief complaint of high blood sugar. Patient states she has been taking his insulin according to a sliding scale. States he takes long-acting and a short-acting prior to meals daily. Patient states today his blood sugars been in the 400s. States he took 7 units of insulin prior throat. States he has been nauseous and vomiting but denies any hematemesis. States he is also having polyuria. Patient reports no chest pain or shortness of breath. This report generalized weakness because he is not able to keep much fluids down. - Related Data Home Medications Medication Instructions Recorded Confirmed Insulin Lispro [Admelog] See Protocol SQ ACHS 07/02/19 01/21/20 Insulin Glargine,Hum.rec.anlog 20 unit SQ HS 09/01/19 01/21/20 [Basaglar Kwikpen U-100] Omeprazole Magnesium [PriLOSEC OTC] 20 mg PO DAILY 01/07/20 01/21/20 Metoclopramide [Reglan] 10 mg PO DAILY PRN 01/21/20 01/21/20 Previous Rx's Medication Instructions Recorded Ondansetron Odt [Zofran Odt] 4 mg PO Q8HR PRN #12 tab 01/21/20 Allergies Allergy/AdvReac Type Severity Reaction Status Date / Time No Known Allergies Allergy Verified 03/30/20 12:07 Review of Systems ROS Statement: Those systems with pertinent positive or pertinent negative responses have been documented in the HPI. ROS Other: All systems not noted in ROS Statement are negative. Past Medical History Past Medical History: Asthma, Diabetes Mellitus, GERD/Reflux Additional Past Medical History / Comment(s): Other HX: IDDM type I, gastroparesis History of Any Multi-Drug Resistant Organisms: None Reported Past Surgical History: Cholecystectomy Past Anesthesia/Blood Transfusion Reactions: Postoperative Nausea & Vomiting (PONV) Additional Past Anesthesia/Blood Transfusion Reaction / Comment(s): Pt has never received blood. Past Psychological History: No Psychological Hx Reported Smoking Status: Former smoker Past Alcohol Use History: None Reported Past Drug Use History: Marijuana - Past Family History Father Family Medical History: Diabetes Mellitus, Hypertension Additional Family Medical History / Comment(s): type II diabetes. Mother Family Medical History: COPD Brother(s) Family Medical History: Diabetes Mellitus Additional Family Medical History / Comment(s): IDDM type I Sister(s) Family Medical History: No Reported History General Exam Limitations: no limitations General appearance: alert, in no apparent distress Head exam: Present: atraumatic, normocephalic, normal inspection Eye exam: Present: normal appearance, PERRL, EOMI Pupils: Present: normal accommodation ENT exam: Present: normal exam, normal oropharynx, mucous membranes dry Neck exam: Present: normal inspection, full ROM. Absent: tenderness Respiratory exam: Present: normal lung sounds bilaterally. Absent: respiratory distress, wheezes, rales Cardiovascular Exam: Present: regular rate, normal rhythm, normal heart sounds. Absent: bradycardia, tachycardia GI/Abdominal exam: Present: soft, tenderness (Mild epigastric), normal bowel sounds. Absent: distended, guarding, rebound Extremities exam: Present: normal inspection, full ROM, normal capillary refill, other (+2 ulnar and radial pulses bilaterally.). Absent: tenderness, pedal edema, joint swelling, calf tenderness Back exam: Present: normal inspection, full ROM. Absent: tenderness, CVA tenderness (R), CVA tenderness (L) Neurological exam: Present: alert, oriented X3, normal gait Psychiatric exam: Present: normal affect, normal mood Skin exam: Present: warm, dry, intact, normal color Course Vital Signs 03/30/20 03/30/20 12:07 13:47 Temperature 98.1 F Pulse Rate 91 82 Respiratory 18 16 Rate Blood Pressure 128/86 138/91 O2 Sat by Pulse 98 97 Oximetry Medical Decision Making - Medical Decision Making Patient is a 30-year-old male with history of type 1 diabetes presenting to the emergency department with a chief complaint of high blood sugar. On exam patient is nauseous but not vomiting here. Patient has glucose levels in the 400s. Patient was given IV fluids and antiemetics. Anion gap is 8. Acetone negative. UA shows no ketones but positive for glucose which is expected. Low concern for DKA at this time. 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 Strict return parameters were thoroughly discussed the patient is understanding and agreeable. Case discussed with physician. - Lab Data Result diagrams: 03/30/20 12:38 03/30/20 12:38 Lab Results 03/30/20 03/30/20 03/30/20 Range/Units 12:08 12:38 12:38 WBC 8.4 (3.8-10.6) k/uL RBC 5.17 (4.30-5.90) m/uL Hgb 15.1 (13.0-17.5) gm/dL Hct 45.7 (39.0-53.0) % MCV 88.4 (80.0-100.0) fL MCH 29.2 (25.0-35.0) pg MCHC 33.0 (31.0-37.0) g/dL RDW 12.6 (11.5-15.5) % Plt Count 230 (150-450) k/uL Neutrophils % 73 % Lymphocytes % 15 % Monocytes % 3 % Eosinophils % 7 % Basophils % 1 % Neutrophils # 6.2 (1.3-7.7) k/uL Lymphocytes # 1.3 (1.0-4.8) k/uL Monocytes # 0.2 (0-1.0) k/uL Eosinophils # 0.6 (0-0.7) k/uL Basophils # 0.1 (0-0.2) k/uL Sodium (137-145) mmol/L Potassium (3.5-5.1) mmol/L Chloride (98-107) mmol/L Carbon Dioxide (22-30) mmol/L Anion Gap mmol/L BUN (9-20) mg/dL Creatinine (0.66-1.25) mg/dL Est GFR (CKD-EPI)AfAm (>60 ml/min/1.73 sqM) Est GFR (CKD-EPI)NonAf (>60 ml/min/1.73 sqM) Glucose (74-99) mg/dL POC Glucose (mg/dL) 390 H (75-99) mg/dL POC Glu Infant Lead Teacher ID Melly Hunt Calcium (8.4-10.2) mg/dL Total Bilirubin (0.2-1.3) mg/dL AST (17-59) U/L ALT (4-49) U/L Alkaline Phosphatase (38-126) U/L Total Protein (6.3-8.2) g/dL Albumin (3.5-5.0) g/dL Urine Color Light Yellow Urine Appearance Clear (Clear) Urine pH 5.5 (5.0-8.0) Ur Specific [place] 1.030 (1.001-1.035) Urine Protein Negative (Negative) Urine Glucose (UA) 4+ H (Negative) Urine Ketones Trace H (Negative) Urine Blood Negative (Negative) Urine Nitrite Negative (Negative) Urine Bilirubin Negative (Negative) Urine Urobilinogen <2.0 (<2.0) mg/dL Ur Leukocyte Esterase Negative (Negative) Acetone, Qual (Negative) 03/30/20 03/30/20 Range/Units 12:38 13:41 WBC (3.8-10.6) k/uL RBC (4.30-5.90) m/uL Hgb (13.0-17.5) gm/dL Hct (39.0-53.0) % MCV (80.0-100.0) fL MCH (25.0-35.0) pg MCHC (31.0-37.0) g/dL RDW (11.5-15.5) % Plt Count (150-450) k/uL Neutrophils % % Lymphocytes % % Monocytes % % Eosinophils % % Basophils % % Neutrophils # (1.3-7.7) k/uL Lymphocytes # (1.0-4.8) k/uL Monocytes # (0-1.0) k/uL Eosinophils # (0-0.7) k/uL Basophils # (0-0.2) k/uL Sodium 136 L (137-145) mmol/L Potassium 4.2 (3.5-5.1) mmol/L Chloride 98 (98-107) mmol/L Carbon Dioxide 30 (22-30) mmol/L Anion Gap 8 mmol/L BUN 17 (9-20) mg/dL Creatinine 0.76 (0.66-1.25) mg/dL Est GFR (CKD-EPI)AfAm >90 (>60 ml/min/1.73 sqM) Est GFR (CKD-EPI)NonAf >90 (>60 ml/min/1.73 sqM) Glucose 363 H (74-99) mg/dL POC Glucose (mg/dL) 243 H (75-99) mg/dL POC Glu Infant Lead Teacher ID lCaudia García Calcium 9.8 (8.4-10.2) mg/dL Total Bilirubin 0.6 (0.2-1.3) mg/dL AST 21 (17-59) U/L ALT 21 (4-49) U/L Alkaline Phosphatase 148 H (38-126) U/L Total Protein 7.1 (6.3-8.2) g/dL Albumin 4.7 (3.5-5.0) g/dL Urine Color Urine Appearance (Clear) Urine pH (5.0-8.0) Ur Specific [place] (1.001-1.035) Urine Protein (Negative) Urine Glucose (UA) (Negative) Urine Ketones (Negative) Urine Blood (Negative) Urine Nitrite (Negative) Urine Bilirubin (Negative) Urine Urobilinogen (<2.0) mg/dL Ur Leukocyte Esterase (Negative) Acetone, Qual Negative (Negative) Disposition Clinical Impression: Nausea & vomiting, Hyperglycemia Disposition: HOME SELF-CARE Condition: Good Instructions (If sedation given, give patient instructions): Diabetes and Exercise (ED) Additional Instructions: Follow-up with your 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 Return to emergency department if symptoms worsen. Is patient prescribed a controlled substance at d/c from ED?: No Referrals: Brett Miller MD [Primary Care Provider] - 1-2 days Time of Disposition: 13:56
[2020-03-30 13:00] LABS: Basophils # (A) 0.1 k/uL (0-0.2); Basophils % (A) 1 %; Eosinophils # (A) 0.6 k/uL (0-0.7); Eosinophils % (A) 7 %; HCT 45.7 % (39.0-53.0); HGB 15.1 gm/dL (13.0-17.5); Lymphocytes # (A) 1.3 k/uL (1.0-4.8); Lymphocytes % (A) 15 %; MCH 29.2 pg (25.0-35.0); MCV 88.4 fL (80.0-100.0); Mean Platelet Volume 7.4; Monocytes # (A) 0.2 k/uL (0-1.0); Monocytes % (A) 3 %; Neutrophils # (A) 6.2 k/uL (1.3-7.7); Neutrophils % (A) 73 %; Platelet Count 230 k/uL (150-450); RBC 5.17 m/uL (4.30-5.90); RDW 12.6 % (11.5-15.5); WBC 8.4 k/uL (3.8-10.6)
[2020-03-30 13:03] LABS: Appearance,Urine Clear (Clear); Bilirubin,Urine Negative (Negative); Blood,Urine Negative (Negative); Color,Urine Light Yellow; Glucose,Urine (UA) 4+ (Negative); Ketones,Urine Trace (Negative); Leukocyte Esterase,Urine Negative (Negative); Nitrite,Urine Negative (Negative); PH, Urine 5.5 (5.0-8.0); Protein,Urine Negative (Negative); Urobilinogen,Urine <2.0 mg/dL (<2.0)
[2020-03-30 13:12] LABS: ALT 21 U/L (4-49); AST 21 U/L (17-59); African American GFR (CKD) >90 (>60 ml/min/1.73 sqM); Albumin 4.7 g/dL (3.5-5.0); Alkaline Phosphatase 148 U/L (38-126); Anion Gap 8 mmol/L; Blood Urea Nitrogen 17 mg/dL (9-20); Calcium 9.8 mg/dL (8.4-10.2); Carbon Dioxide 30 mmol/L (22-30); Chloride 98 mmol/L (98-107); Glucose 363 mg/dL (74-99); Non-African American GFR(CKD) >90 (>60 ml/min/1.73 sqM); Potassium 4.2 mmol/L (3.5-5.1); Sodium 136 mmol/L (137-145); Total Bilirubin 0.6 mg/dL (0.2-1.3); Total Protein 7.1 g/dL (6.3-8.2)
[2020-03-30] MEDS ORDERED: INSULIN REGULAR 100 UNIT/ML VIAL IV ONE (13:16)
[2020-03-30] MEDS ORDERED: ONDANSETRON 4 MG/2 ML VIAL IVP STA (13:36)
[2020-03-30 13:48] VITALS: BP 138/91; PULSE 82; RESP 16
[2020-03-30 13:51] LABS: Glucose,Whole Blood 243 mg/dL (75-99)
[2020-03-30 14:15] LABS: Glucose,Whole Blood 212 mg/dL (75-99)
== END 2020-03-30 14:18 | disposition home or self-care (01) ==
LOC: EC 12:05
DX: E10.65 Type 1 diabetes mellitus with hyperglycemia (principal); K21.9 Gastro-esophageal reflux disease without esophagitis; Z79.4 Long term (current) use of insulin; Z79.899 Other long term (current) drug therapy; Z87.891 Personal history of nicotine dependence
CPT/HCPCS: 99284; 96374; 96361; 36415; 80053; 82009; 85025; 81003; J2405

== ENCOUNTER 2020-04-21 12:32 | Emergency (ER) | payer OTHER ==
[2020-04-21 12:36] VITALS: TEMP 97.8
[2020-04-21] MEDS ORDERED: KETOROLAC 15 MG/ML 1 ML VIAL IM STA (12:48)
[2020-04-21] MEDS ORDERED: SODIUM CHLORIDE 0.9% 1,000 ML IV ONE (12:53)
[2020-04-21 12:57] LABS: Glucose,Whole Blood 421 mg/dL (75-99)
[2020-04-21 13:14] LABS: Basophils # (A) 0.2 k/uL (0-0.2); Basophils % (A) 2 %; Eosinophils # (A) 0.5 k/uL (0-0.7); Eosinophils % (A) 5 %; HCT 50.3 % (39.0-53.0); Lymphocytes # (A) 1.3 k/uL (1.0-4.8); Lymphocytes % (A) 13 %; MCH 30.7 pg (25.0-35.0); MCHC 33.9 g/dL (31.0-37.0); MCV 90.7 fL (80.0-100.0); Mean Platelet Volume 7.5; Monocytes # (A) 0.3 k/uL (0-1.0); Monocytes % (A) 3 %; Neutrophils # (A) 7.7 k/uL (1.3-7.7); Neutrophils % (A) 77 %; Platelet Count 273 k/uL (150-450); RBC 5.55 m/uL (4.30-5.90)
[2020-04-21 13:22] LABS: ALT 26 U/L (4-49); AST 24 U/L (17-59); African American GFR (CKD) >90 (>60 ml/min/1.73 sqM); Albumin 4.9 g/dL (3.5-5.0); Alkaline Phosphatase 132 U/L (38-126); Anion Gap 14 mmol/L; Blood Urea Nitrogen 21 mg/dL (9-20); Calcium 10.1 mg/dL (8.4-10.2); Carbon Dioxide 24 mmol/L (22-30); Chloride 94 mmol/L (98-107); Glucose 447 mg/dL (74-99); Non-African American GFR(CKD) >90 (>60 ml/min/1.73 sqM); Potassium 5.1 mmol/L (3.5-5.1); Sodium 132 mmol/L (137-145); Total Bilirubin 1.2 mg/dL (0.2-1.3); Total Protein 7.3 g/dL (6.3-8.2)
[2020-04-21 14:15] VITALS: BP 120/79; PULSE 80; RESP 16
--- NOTE | 2020-04-21 14:17 | ED ---
General Adult HPI - General Chief complaint: Chest Pain Stated complaint: SOB, Chest Pain Time Seen by Provider: 04/21/20 12:35 Source: patient, RN notes reviewed, old records reviewed Mode of arrival: wheelchair Limitations: no limitations - History of Present Illness Initial comments: This is a 30-year-old male presents emergency department stating that he comes in because he has pain that both his trapezius muscles but doesn't seem to be associated with movement. Patient states he has had this many times before has been seen in the past and had stress test for his heart and everything is been normal. Patient is wondering why he keeps getting this. 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 Patient did not take any medicines for this either. Patient denied any chest pain or palpitations patient denies shortness of breath or difficulty breathing. Patient denies abdominal pain patient states he did feel nauseated earlier but he took some Zofran and he feels better now. - Related Data Home Medications Medication Instructions Recorded Confirmed Insulin Lispro [Admelog] See Protocol SQ TID 07/02/19 04/21/20 Insulin Glargine,Hum.rec.anlog 23 unit SQ HS 09/01/19 04/21/20 [Basaglar Kwikpen U-100] Previous Rx's Medication Instructions Recorded Ondansetron Odt [Zofran Odt] 4 mg PO Q8HR PRN #30 tab 03/30/20 Allergies Allergy/AdvReac Type Severity Reaction Status Date / Time No Known Allergies Allergy Verified 04/21/20 13:19 Review of Systems ROS Statement: Those systems with pertinent positive or pertinent negative responses have been documented in the HPI. ROS Other: All systems not noted in ROS Statement are negative. Past Medical History Past Medical History: Asthma, Diabetes Mellitus, GERD/Reflux Additional Past Medical History / Comment(s): Other HX: IDDM type I, gastroparesis History of Any Multi-Drug Resistant Organisms: None Reported Past Surgical History: Cholecystectomy Past Anesthesia/Blood Transfusion Reactions: Postoperative Nausea & Vomiting (PONV) Additional Past Anesthesia/Blood Transfusion Reaction / Comment(s): Pt has never received blood. Past Psychological History: No Psychological Hx Reported Smoking Status: Former smoker Past Alcohol Use History: None Reported Past Drug Use History: Marijuana - Past Family History Father Family Medical History: Diabetes Mellitus, Hypertension Additional Family Medical History / Comment(s): type II diabetes. Mother Family Medical History: COPD Brother(s) Family Medical History: Diabetes Mellitus Additional Family Medical History / Comment(s): IDDM type I Sister(s) Family Medical History: No Reported History General Exam - General Exam Comments Initial Comments: GENERAL: Patient is well-developed and well-nourished. Patient is nontoxic and well- hydrated and is in no acute distress. ENT: Neck is soft and supple. No significant lymphadenopathy is noted. Oropharynx is clear. Moist mucous membranes. Neck has full range of motion without eliciting any pain. EYES: The sclera were anicteric and conjunctiva were pink and moist. Extraocular movements were intact and pupils were equal round and reactive to light. Eyelids were unremarkable. PULMONARY: Unlabored respirations. Good breath sounds bilaterally. No audible rales rhonchi or wheezing was noted. CARDIOVASCULAR: There is a regular rate and rhythm without any murmurs gallops or rubs. ABDOMEN: Soft and nontender with normal bowel sounds. SKIN: Skin is clear with no lesions or rashes and otherwise unremarkable. NEUROLOGIC: Patient is alert and oriented x3. Cranial nerves II through XII are grossly intact. Motor and sensory are also intact. Normal speech, volume and content. Symmetrical smile. MUSCULOSKELETAL: Normal extremities with adequate strength and full range of motion. Patient has some slight tenderness in the trapezius muscles. LYMPHATICS: No significant lymphadenopathy is noted PSYCHIATRIC: Normal psychiatric evaluation. Limitations: no limitations Course Vital Signs 04/21/20 04/21/20 12:34 14:15 Temperature 97.8 F Pulse Rate 125 H 80 Respiratory 18 16 Rate Blood Pressure 133/76 120/79 O2 Sat by Pulse 99 99 Oximetry Medical Decision Making - Medical Decision Making EKG shows normal sinus rhythm at 90 bpm TX interval 138 QRS is 86 QT interval 350 QTC is 446. Patient's EKG shows no ST segment elevation or depression - Lab Data Result diagrams: 04/21/20 13:04 04/21/20 13:04 Lab Results 04/21/20 04/21/20 04/21/20 Range/Units 12:50 13:04 13:04 WBC 10.0 (3.8-10.6) k/uL RBC 5.55 (4.30-5.90) m/uL Hgb 17.0 (13.0-17.5) gm/dL Hct 50.3 (39.0-53.0) % MCV 90.7 (80.0-100.0) fL MCH 30.7 (25.0-35.0) pg MCHC 33.9 (31.0-37.0) g/dL RDW 13.0 (11.5-15.5) % Plt Count 273 (150-450) k/uL Neutrophils % 77 % Lymphocytes % 13 % Monocytes % 3 % Eosinophils % 5 % Basophils % 2 % Neutrophils # 7.7 (1.3-7.7) k/uL Lymphocytes # 1.3 (1.0-4.8) k/uL Monocytes # 0.3 (0-1.0) k/uL Eosinophils # 0.5 (0-0.7) k/uL Basophils # 0.2 (0-0.2) k/uL Sodium 132 L (137-145) mmol/L Potassium 5.1 (3.5-5.1) mmol/L Chloride 94 L (98-107) mmol/L Carbon Dioxide 24 (22-30) mmol/L Anion Gap 14 mmol/L BUN 21 H (9-20) mg/dL Creatinine 0.90 (0.66-1.25) mg/dL Est GFR (CKD-EPI)AfAm >90 (>60 ml/min/1.73 sqM) Est GFR (CKD-EPI)NonAf >90 (>60 ml/min/1.73 sqM) Glucose 447 H (74-99) mg/dL POC Glucose (mg/dL) 421 H (75-99) mg/dL POC Glu Client Experience Consultant ID Charly Guillory Calcium 10.1 (8.4-10.2) mg/dL Total Bilirubin 1.2 (0.2-1.3) mg/dL AST 24 (17-59) U/L ALT 26 (4-49) U/L Alkaline Phosphatase 132 H (38-126) U/L Total Protein 7.3 (6.3-8.2) g/dL Albumin 4.9 (3.5-5.0) g/dL Acetone, Qual Negative (Negative) Disposition Clinical Impression: Hyperglycemia, Trapezius muscle strain Disposition: HOME SELF-CARE Condition: Good Instructions (If sedation given, give patient instructions): Diabetic Hyperglycemia (ED) Is patient prescribed a controlled substance at d/c from ED?: No Referrals: Brett Miller MD [Primary Care Provider] - 1-2 days Time of Disposition: 14:17
[2020-04-21] MEDS ORDERED: INSULIN ASPART (NovoLOG) 100 UNIT/ML VIAL SQ ONE (14:18)
[2020-04-21 14:21] LABS: Glucose,Whole Blood 323 mg/dL (75-99)
== END 2020-04-21 14:55 | disposition home or self-care (01) ==
LOC: EC 12:32
DX: S46.911A Strain of unspecified muscle, fascia and tendon at shoulder and upper arm level, right arm, initial encounter (principal); E10.65 Type 1 diabetes mellitus with hyperglycemia; Z79.4 Long term (current) use of insulin; Z87.891 Personal history of nicotine dependence; Z90.49 Acquired absence of other specified parts of digestive tract
CPT/HCPCS: 36415; 93005; 80053; 82009; 85025; 99285; 96360; 96372; J1885

== ENCOUNTER 2020-05-10 19:16 | Emergency (ER) | payer OTHER ==
[2020-05-10 19:49] VITALS: TEMP 97.9
--- NOTE | 2020-05-10 20:24 | ED ---
General Adult HPI - General Chief complaint: Upper Respiratory Infection Stated complaint: Upper Resp Time Seen by Provider: 05/10/20 20:07 Source: patient, RN notes reviewed, old records reviewed Mode of arrival: ambulatory Limitations: no limitations - History of Present Illness Initial comments: 30-year-old male patient passed history of type 1 diabetes gastroparesis to ED for evaluation. Patient reports that for the last 3 days he has had left maxillary pressure. Mild waxing and waning headaches. Please concerned he has a sinus infection. Denies any red flag symptoms of headaches. Patient also reports he has had a dry cough. Denies any fevers. He reports that his blood sugars have been elevated. Denies any other complaints. Systemic: Pt denies fatigue, fever/chills, rash. Pt denies weakness, night sweats, weight loss. Neuro: Pt denies visual disturbances, syncope or pre-syncope. HEENT: Pt denies ocular discharge or irritation, otalgia, rhinorrhea, pharyngitis or notable lymphadenopathy. Cardiopulmonary: Pt denies chest pain, SOB, heart palpitations, dyspnea on exertion. Abdominal/GI: Pt denies abdominal pain, n/v/d. : Pt denies dysuria, burning w/ urination, frequency/urgency. Denies new onset urinary or bowel incontinence. MSK: Pt denies myalgia, loss of strength or function in extremities. Neuro: Pt denies new onset weakness, paresthesias. - Related Data Home Medications Medication Instructions Recorded Confirmed Insulin Lispro [Admelog] See Protocol SQ TID 07/02/19 05/10/20 Insulin Glargine,Hum.rec.anlog 23 unit SQ HS 09/01/19 05/10/20 [Basaglar Kwikpen U-100] Previous Rx's Medication Instructions Recorded Ondansetron Odt [Zofran Odt] 4 mg PO Q8HR PRN #30 tab 03/30/20 Amoxicillin/Potassium Clav 1 each PO Q12HR 10 Days #20 tab 05/10/20 [Augmentin 875-125 Tablet] Allergies Allergy/AdvReac Type Severity Reaction Status Date / Time No Known Allergies Allergy Verified 05/10/20 21:44 Review of Systems ROS Statement: Those systems with pertinent positive or pertinent negative responses have been documented in the HPI. ROS Other: All systems not noted in ROS Statement are negative. Past Medical History Past Medical History: Asthma, Diabetes Mellitus, GERD/Reflux Additional Past Medical History / Comment(s): Other HX: IDDM type I, gastroparesis History of Any Multi-Drug Resistant Organisms: None Reported Past Surgical History: Cholecystectomy Past Anesthesia/Blood Transfusion Reactions: Postoperative Nausea & Vomiting (PONV) Additional Past Anesthesia/Blood Transfusion Reaction / Comment(s): Pt has never received blood. Past Psychological History: No Psychological Hx Reported Smoking Status: Former smoker Past Alcohol Use History: None Reported Past Drug Use History: Marijuana - Past Family History Father Family Medical History: Diabetes Mellitus, Hypertension Additional Family Medical History / Comment(s): type II diabetes. Mother Family Medical History: COPD Brother(s) Family Medical History: Diabetes Mellitus Additional Family Medical History / Comment(s): IDDM type I Sister(s) Family Medical History: No Reported History General Exam - General Exam Comments Initial Comments: Constitutional: NAD, AOX3, Pt has pleasant affect. HEENT: NC/AT, trachea midline, neck supple, no lymphadenopathy. Posterior pharynx non erythematous, without exudates. External ears appear normal, without discharge. Mucous membranes moist. Eyes PERRLA, EOM intact. There is no scleral icterus. No pallor noted. Left maxillary sinus pressure reproducible upon palpation. Cardiopulmonary: RRR, no murmurs, rubs or gallops, no JVD noted. Lungs CTAB in anterior and posterior melendez. No peripheral edema. Abdominal exam: Abdomen soft and non-distended. Abdomen non-tender to palpation in all 4 quadrants. Bowel sounds active in LLQ. No hepatosplenomegaly. No ecchymosis Neuro: CN II-XII intact. No nuchal rigidity. No raccon eyes, no fleming sign, no hemotympanum. No cervical spinal tenderness. MSK: Full active ROM in upper and lower extremities, 5/5 stregnth. Limitations: no limitations Course Vital Signs 05/10/20 19:47 Temperature 97.9 F Pulse Rate 102 H Respiratory 20 Rate Blood Pressure 129/75 O2 Sat by Pulse 98 Oximetry Medical Decision Making - Medical Decision Making 30-year-old male patient ED for evaluation of sinus pressure. Dry cough. Ongoing the last 3 days. Patient vital signs stable, afebrile. Physical exam is reproducible sinus pressure. Neurologic exam is intact labs investigations reveal hyperglycemia. Anion gap is 11. 4+ glucose 2+ ketones. Acetone negative. Patient administered fluid bolus. Insulin. Repeat blood sugar 246. Chest x-ray negative for acute process. Patient was placed on Augmentin for sinusitis. A follow-up with primary care provider tomorrow and will return to ER if any worsening symptoms. Case discussed with Dr. Higginbotham. - Lab Data Result diagrams: 05/10/20 20:20 05/10/20 20:20 Lab Results 05/10/20 05/10/20 05/10/20 Range/Units 20:20 20:20 20:20 WBC 6.6 (3.8-10.6) k/uL RBC 5.15 (4.30-5.90) m/uL Hgb 15.7 (13.0-17.5) gm/dL Hct 46.9 (39.0-53.0) % MCV 91.1 (80.0-100.0) fL MCH 30.4 (25.0-35.0) pg MCHC 33.4 (31.0-37.0) g/dL RDW 13.5 (11.5-15.5) % Plt Count 228 (150-450) k/uL Neutrophils % 71 % Lymphocytes % 18 % Monocytes % 3 % Eosinophils % 5 % Basophils % 1 % Neutrophils # 4.7 (1.3-7.7) k/uL Lymphocytes # 1.2 (1.0-4.8) k/uL Monocytes # 0.2 (0-1.0) k/uL Eosinophils # 0.3 (0-0.7) k/uL Basophils # 0.1 (0-0.2) k/uL Sodium 135 L (137-145) mmol/L Potassium 4.6 (3.5-5.1) mmol/L Chloride 98 (98-107) mmol/L Carbon Dioxide 26 (22-30) mmol/L Anion Gap 11 mmol/L BUN 18 (9-20) mg/dL Creatinine 0.73 (0.66-1.25) mg/dL Est GFR (CKD-EPI)AfAm >90 (>60 ml/min/1.73 sqM) Est GFR (CKD-EPI)NonAf >90 (>60 ml/min/1.73 sqM) Glucose 354 H (74-99) mg/dL POC Glucose (mg/dL) (75-99) mg/dL POC Glu Personnel Security Specialist ID Calcium 9.4 (8.4-10.2) mg/dL Total Bilirubin 1.2 (0.2-1.3) mg/dL AST 31 (17-59) U/L ALT 40 (4-49) U/L Alkaline Phosphatase 114 (38-126) U/L Total Protein 7.0 (6.3-8.2) g/dL Albumin 4.5 (3.5-5.0) g/dL Urine Color Yellow Urine Appearance Clear (Clear) Urine pH 6.0 (5.0-8.0) Ur Specific [place] 1.037 H (1.001-1.035) Urine Protein Negative (Negative) Urine Glucose (UA) 4+ H (Negative) Urine Ketones 2+ H (Negative) Urine Blood Negative (Negative) Urine Nitrite Negative (Negative) Urine Bilirubin Negative (Negative) Urine Urobilinogen <2.0 (<2.0) mg/dL Ur Leukocyte Esterase Negative (Negative) Acetone, Qual Negative (Negative) 05/10/20 05/10/20 05/10/20 Range/Units 21:05 22:26 23:30 WBC (3.8-10.6) k/uL RBC (4.30-5.90) m/uL Hgb (13.0-17.5) gm/dL Hct (39.0-53.0) % MCV (80.0-100.0) fL MCH (25.0-35.0) pg MCHC (31.0-37.0) g/dL RDW (11.5-15.5) % Plt Count (150-450) k/uL Neutrophils % % Lymphocytes % % Monocytes % % Eosinophils % % Basophils % % Neutrophils # (1.3-7.7) k/uL Lymphocytes # (1.0-4.8) k/uL Monocytes # (0-1.0) k/uL Eosinophils # (0-0.7) k/uL Basophils # (0-0.2) k/uL Sodium (137-145) mmol/L Potassium (3.5-5.1) mmol/L Chloride (98-107) mmol/L Carbon Dioxide (22-30) mmol/L Anion Gap mmol/L BUN (9-20) mg/dL Creatinine (0.66-1.25) mg/dL Est GFR (CKD-EPI)AfAm (>60 ml/min/1.73 sqM) Est GFR (CKD-EPI)NonAf (>60 ml/min/1.73 sqM) Glucose (74-99) mg/dL POC Glucose (mg/dL) 338 H 310 H 246 H (75-99) mg/dL POC Glu Personnel Security Specialist ID Davis Rivera Molly Aguinaga, Molly Calcium (8.4-10.2) mg/dL Total Bilirubin (0.2-1.3) mg/dL AST (17-59) U/L ALT (4-49) U/L Alkaline Phosphatase (38-126) U/L Total Protein (6.3-8.2) g/dL Albumin (3.5-5.0) g/dL Urine Color Urine Appearance (Clear) Urine pH (5.0-8.0) Ur Specific [place] (1.001-1.035) Urine Protein (Negative) Urine Glucose (UA) (Negative) Urine Ketones (Negative) Urine Blood (Negative) Urine Nitrite (Negative) Urine Bilirubin (Negative) Urine Urobilinogen (<2.0) mg/dL Ur Leukocyte Esterase (Negative) Acetone, Qual (Negative) Disposition Clinical Impression: Sinusitis, Cough Disposition: HOME SELF-CARE Condition: Stable Instructions (If sedation given, give patient instructions): Acute Cough (ED), Sinusitis (ED) Additional Instructions: Follow up with PCP tomorrow. Take antibiotics as directed. Self quarentine until coronavirus results. Closely monitor sugars at home. Return to ED with any w orsening symptoms. Prescriptions: Amoxicillin/Potassium Clav [Augmentin 875-125 Tablet] 1 each PO Q12HR 10 Days #20 tab Is patient prescribed a controlled substance at d/c from ED?: No Referrals: Brett Miller MD [Primary Care Provider] - 1-2 days
[2020-05-10 20:52] LABS: Basophils # (A) 0.1 k/uL (0-0.2); Basophils % (A) 1 %; Eosinophils # (A) 0.3 k/uL (0-0.7); Eosinophils % (A) 5 %; HCT 46.9 % (39.0-53.0); HGB 15.7 gm/dL (13.0-17.5); Lymphocytes # (A) 1.2 k/uL (1.0-4.8); Lymphocytes % (A) 18 %; MCH 30.4 pg (25.0-35.0); MCHC 33.4 g/dL (31.0-37.0); MCV 91.1 fL (80.0-100.0); Mean Platelet Volume 7.6; Monocytes # (A) 0.2 k/uL (0-1.0); Monocytes % (A) 3 %; Neutrophils # (A) 4.7 k/uL (1.3-7.7); Neutrophils % (A) 71 %; Platelet Count 228 k/uL (150-450); RBC 5.15 m/uL (4.30-5.90); RDW 13.5 % (11.5-15.5); WBC 6.6 k/uL (3.8-10.6)
[2020-05-10 20:53] LABS: Appearance,Urine Clear (Clear); Bilirubin,Urine Negative (Negative); Blood,Urine Negative (Negative); Color,Urine Yellow; Glucose,Urine (UA) 4+ (Negative); Leukocyte Esterase,Urine Negative (Negative); Nitrite,Urine Negative (Negative); Protein,Urine Negative (Negative); Specific Gravity,Urine 1.037 (1.001-1.035); Urobilinogen,Urine <2.0 mg/dL (<2.0)
[2020-05-10 21:05] LABS: ALT 40 U/L (4-49); AST 31 U/L (17-59); African American GFR (CKD) >90 (>60 ml/min/1.73 sqM); Albumin 4.5 g/dL (3.5-5.0); Alkaline Phosphatase 114 U/L (38-126); Anion Gap 11 mmol/L; Blood Urea Nitrogen 18 mg/dL (9-20); Calcium 9.4 mg/dL (8.4-10.2); Carbon Dioxide 26 mmol/L (22-30); Chloride 98 mmol/L (98-107); Glucose 354 mg/dL (74-99); Non-African American GFR(CKD) >90 (>60 ml/min/1.73 sqM); Potassium 4.6 mmol/L (3.5-5.1); Sodium 135 mmol/L (137-145); Total Bilirubin 1.2 mg/dL (0.2-1.3)
[2020-05-10] MEDS ORDERED: SODIUM CHLORIDE 0.9% 1,000 ML IV ONE (21:08)
--- NOTE | 2020-05-10 21:08 | XR ---
EXAMINATION TYPE: XR chest 2V DATE OF EXAM: 05/10/2020 COMPARISON: 01/07/2020 HISTORY: Cough TECHNIQUE: 2 views FINDINGS: Heart and mediastinum are normal. Lungs are clear. Diaphragm is normal. Bony thorax appears normal. IMPRESSION: Normal chest. No change.
[2020-05-10 21:10] LABS: Glucose,Whole Blood 338 mg/dL (75-99)
[2020-05-10 21:19] LABS: Ketones,Urine 2+ (Negative)
[2020-05-10] MEDS ORDERED: INSULIN ASPART (NovoLOG) 100 UNIT/ML VIAL SQ ONE (21:20)
[2020-05-10] MEDS ORDERED: AMOXIC-POT CLAV 875MG STARTER PACK 2 TAB BTL PO STA (21:54)
[2020-05-10 22:28] LABS: Glucose,Whole Blood 310 mg/dL (75-99)
[2020-05-10 23:31] LABS: Glucose,Whole Blood 246 mg/dL (75-99)
[2020-05-11 00:12] VITALS: BP 121/75; PULSE 77; RESP 16
== END 2020-05-10 23:51 | disposition home or self-care (01) ==
LOC: EC 19:16
DX: J32.9 Chronic sinusitis, unspecified (principal); E10.65 Type 1 diabetes mellitus with hyperglycemia; Z79.4 Long term (current) use of insulin; Z87.891 Personal history of nicotine dependence; Z20.828 Contact with and (suspected) exposure to other viral communicable diseases
CPT/HCPCS: 36415; 80053; 82009; 85025; 81003; 71046; 99284; 96360; U0003

== ENCOUNTER 2020-07-20 21:48 | Emergency (ER) | payer OTHER ==
[2020-07-20] MEDS ORDERED: ONDANSETRON 4 MG/2 ML VIAL IVP STA (23:02)
[2020-07-20] MEDS ORDERED: SODIUM CHLORIDE 0.9% 500 ML 500 ML IV STA (23:02)
[2020-07-20] MEDS ORDERED: SODIUM CHLORIDE 0.9% 1,000 ML IV STA ×2 (23:02)
--- NOTE | 2020-07-20 23:03 | ED ---
Nausea/Vomiting/Diarrhea HPI - General Chief complaint: Nausea/Vomiting/Diarrhea Stated complaint: dehydrated Time Seen by Provider: 07/20/20 22:32 Source: patient, RN notes reviewed, old records reviewed Mode of arrival: ambulatory Limitations: no limitations - History of Present Illness Initial comments: This is a 30-year-old male DF for evaluation. Patient had recent issues of blood sugar control. Persistent nausea vomiting diarrhea diarrhea, weakness. Patient thinks he may have coronavirus exposure with some recent chills no fevers. Occasional abdominal pain. A she does have history of asthma diabetes and gastroparesis. Again no shortness of breath cough or congestion. MD complaint: nausea, vomiting, abdominal pain -: days(s) Description of Vomiting: food contents Description of Diarrhea: water Location: diffuse, LUQ Radiation: none Severity: mild Severity scale (1-10): 2 Quality: cramping, aching Consistency: intermittent Improves with: none Worsens with: none Context: sick contacts (May have covert exposure) Associated Symptoms: myalgias, loss of appetite, nausea/vomiting, weakness - Related Data Home Medications Medication Instructions Recorded Confirmed INSULIN ASPART (NovoLOG) [NovoLOG See Protocol SQ AC-TID 07/20/20 07/20/20 (formulary)] Insulin Glargine [Lantus] 28 unit SQ HS 07/20/20 07/20/20 Previous Rx's Medication Instructions Recorded Ondansetron Odt [Zofran Odt] 4 mg PO Q8HR PRN #30 tab 03/30/20 Allergies Allergy/AdvReac Type Severity Reaction Status Date / Time No Known Allergies Allergy Verified 07/20/20 22:45 Review of Systems ROS Statement: Those systems with pertinent positive or pertinent negative responses have been documented in the HPI. ROS Other: All systems not noted in ROS Statement are negative. Past Medical History Past Medical History: Asthma, Diabetes Mellitus, GERD/Reflux Additional Past Medical History / Comment(s): Other HX: IDDM type I, gastroparesis History of Any Multi-Drug Resistant Organisms: None Reported Past Surgical History: Cholecystectomy Past Anesthesia/Blood Transfusion Reactions: Postoperative Nausea & Vomiting (PONV) Additional Past Anesthesia/Blood Transfusion Reaction / Comment(s): Pt has never received blood. Past Psychological History: No Psychological Hx Reported Smoking Status: Former smoker Past Alcohol Use History: None Reported Past Drug Use History: Marijuana - Past Family History Father Family Medical History: Diabetes Mellitus, Hypertension Additional Family Medical History / Comment(s): type II diabetes. Mother Family Medical History: COPD Brother(s) Family Medical History: Diabetes Mellitus Additional Family Medical History / Comment(s): IDDM type I Sister(s) Family Medical History: No Reported History General Exam Limitations: no limitations General appearance: alert, in no apparent distress Head exam: Present: atraumatic, normocephalic, normal inspection Eye exam: Present: normal appearance, PERRL, EOMI. Absent: scleral icterus, conjunctival injection, periorbital swelling ENT exam: Present: normal exam, mucous membranes moist Neck exam: Present: normal inspection. Absent: tenderness, meningismus, lymphadenopathy Respiratory exam: Present: normal lung sounds bilaterally. Absent: respiratory distress, wheezes, rales, rhonchi, stridor Cardiovascular Exam: Present: regular rate, normal rhythm, normal heart sounds. Absent: systolic murmur, diastolic murmur, rubs, gallop, clicks GI/Abdominal exam: Present: soft, normal bowel sounds. Absent: distended, tenderness, guarding, rebound, rigid Extremities exam: Present: normal inspection, full ROM, normal capillary refill. Absent: tenderness, pedal edema, joint swelling, calf tenderness Back exam: Present: normal inspection Neurological exam: Present: alert, oriented X3, CN II-XII intact Psychiatric exam: Present: normal affect, normal mood Skin exam: Present: warm, dry, intact, normal color. Absent: rash Course Vital Signs 07/20/20 07/20/20 07/21/20 22:09 23:24 00:25 Temperature 98.7 F 98.6 F Pulse Rate 99 74 66 Respiratory 20 16 15 Rate Blood Pressure 127/76 120/70 111/64 O2 Sat by Pulse 98 100 100 Oximetry - Reevaluation(s) Reevaluation #1: 07/21/20 00:53 Medical records reviewed Reevaluation #2: 07/21/20 00:53 Patient this time feels well Medical Decision Making - Medical Decision Making 30 male DF for evaluation. Nausea vomiting history of diabetes. Blood sugar mildly elevated by insignificant. Patient given adequate hydration here in the ER nausea medication and can be discharged home - Lab Data Result diagrams: 07/20/20 23:06 07/20/20 23:06 Lab Results 07/20/20 07/20/20 07/20/20 Range/Units 23:06 23:06 23:06 WBC 7.1 (3.8-10.6) k/uL RBC 5.09 (4.30-5.90) m/uL Hgb 15.6 (13.0-17.5) gm/dL Hct 44.2 (39.0-53.0) % MCV 86.8 (80.0-100.0) fL MCH 30.7 (25.0-35.0) pg MCHC 35.3 (31.0-37.0) g/dL RDW 12.7 (11.5-15.5) % Plt Count 219 (150-450) k/uL MPV 7.5 Neutrophils % 64 % Lymphocytes % 23 % Monocytes % 4 % Eosinophils % 6 % Basophils % 2 % Neutrophils # 4.6 (1.3-7.7) k/uL Lymphocytes # 1.6 (1.0-4.8) k/uL Monocytes # 0.3 (0-1.0) k/uL Eosinophils # 0.4 (0-0.7) k/uL Basophils # 0.1 (0-0.2) k/uL PT 9.9 (9.0-12.0) sec INR 0.9 (<1.2) APTT 20.9 L (22.0-30.0) sec VBG pH (7.31-7.41) VBG pCO2 (37-51) mmHg VBG HCO3 (24-28) mmol/L Sodium 134 L (137-145) mmol/L Potassium 4.2 (3.5-5.1) mmol/L Chloride 99 (98-107) mmol/L Carbon Dioxide 26 (22-30) mmol/L Anion Gap 9 mmol/L BUN 18 (9-20) mg/dL Creatinine 0.66 (0.66-1.25) mg/dL Est GFR (CKD-EPI)AfAm >90 (>60 ml/min/1.73 sqM) Est GFR (CKD-EPI)NonAf >90 (>60 ml/min/1.73 sqM) Glucose 323 H (74-99) mg/dL Calcium 9.6 (8.4-10.2) mg/dL Phosphorus 3.9 (2.5-4.5) mg/dL Magnesium 1.7 (1.6-2.3) mg/dL Total Bilirubin 0.6 (0.2-1.3) mg/dL AST 24 (17-59) U/L ALT 20 (4-49) U/L Alkaline Phosphatase 123 (38-126) U/L Creatine Kinase 29 L (55-170) U/L Troponin I (0.000-0.034) ng/mL NT-Pro-B Natriuret Pep pg/mL Total Protein 6.5 (6.3-8.2) g/dL Albumin 4.1 (3.5-5.0) g/dL Urine Color Urine Appearance (Clear) Urine pH (5.0-8.0) Ur Specific [place] (1.001-1.035) Urine Protein (Negative) Urine Glucose (UA) (Negative) Urine Ketones (Negative) Urine Blood (Negative) Urine Nitrite (Negative) Urine Bilirubin (Negative) Urine Urobilinogen (<2.0) mg/dL Ur Leukocyte Esterase (Negative) Acetone, Qual Negative (Negative) Coronavirus (PCR) (Not Detectd) 07/20/20 07/20/20 07/20/20 Range/Units 23:06 23:06 23:10 WBC (3.8-10.6) k/uL RBC (4.30-5.90) m/uL Hgb (13.0-17.5) gm/dL Hct (39.0-53.0) % MCV (80.0-100.0) fL MCH (25.0-35.0) pg MCHC (31.0-37.0) g/dL RDW (11.5-15.5) % Plt Count (150-450) k/uL MPV Neutrophils % % Lymphocytes % % Monocytes % % Eosinophils % % Basophils % % Neutrophils # (1.3-7.7) k/uL Lymphocytes # (1.0-4.8) k/uL Monocytes # (0-1.0) k/uL Eosinophils # (0-0.7) k/uL Basophils # (0-0.2) k/uL PT (9.0-12.0) sec INR (<1.2) APTT (22.0-30.0) sec VBG pH 7.45 H (7.31-7.41) VBG pCO2 39 (37-51) mmHg VBG HCO3 27 (24-28) mmol/L Sodium (137-145) mmol/L Potassium (3.5-5.1) mmol/L Chloride (98-107) mmol/L Carbon Dioxide (22-30) mmol/L Anion Gap mmol/L BUN (9-20) mg/dL Creatinine (0.66-1.25) mg/dL Est GFR (CKD-EPI)AfAm (>60 ml/min/1.73 sqM) Est GFR (CKD-EPI)NonAf (>60 ml/min/1.73 sqM) Glucose (74-99) mg/dL Calcium (8.4-10.2) mg/dL Phosphorus (2.5-4.5) mg/dL Magnesium (1.6-2.3) mg/dL Total Bilirubin (0.2-1.3) mg/dL AST (17-59) U/L ALT (4-49) U/L Alkaline Phosphatase (38-126) U/L Creatine Kinase (55-170) U/L Troponin I <0.012 (0.000-0.034) ng/mL NT-Pro-B Natriuret Pep 25 pg/mL Total Protein (6.3-8.2) g/dL Albumin (3.5-5.0) g/dL Urine Color Urine Appearance (Clear) Urine pH (5.0-8.0) Ur Specific [place] (1.001-1.035) Urine Protein (Negative) Urine Glucose (UA) (Negative) Urine Ketones (Negative) Urine Blood (Negative) Urine Nitrite (Negative) Urine Bilirubin (Negative) Urine Urobilinogen (<2.0) mg/dL Ur Leukocyte Esterase (Negative) Acetone, Qual (Negative) Coronavirus (PCR) (Not Detectd) 07/20/20 07/21/20 Range/Units 23:10 00:01 WBC (3.8-10.6) k/uL RBC (4.30-5.90) m/uL Hgb (13.0-17.5) gm/dL Hct (39.0-53.0) % MCV (80.0-100.0) fL MCH (25.0-35.0) pg MCHC (31.0-37.0) g/dL RDW (11.5-15.5) % Plt Count (150-450) k/uL MPV Neutrophils % % Lymphocytes % % Monocytes % % Eosinophils % % Basophils % % Neutrophils # (1.3-7.7) k/uL Lymphocytes # (1.0-4.8) k/uL Monocytes # (0-1.0) k/uL Eosinophils # (0-0.7) k/uL Basophils # (0-0.2) k/uL PT (9.0-12.0) sec INR (<1.2) APTT (22.0-30.0) sec VBG pH (7.31-7.41) VBG pCO2 (37-51) mmHg VBG HCO3 (24-28) mmol/L Sodium (137-145) mmol/L Potassium (3.5-5.1) mmol/L Chloride (98-107) mmol/L Carbon Dioxide (22-30) mmol/L Anion Gap mmol/L BUN (9-20) mg/dL Creatinine (0.66-1.25) mg/dL Est GFR (CKD-EPI)AfAm (>60 ml/min/1.73 sqM) Est GFR (CKD-EPI)NonAf (>60 ml/min/1.73 sqM) Glucose (74-99) mg/dL Calcium (8.4-10.2) mg/dL Phosphorus (2.5-4.5) mg/dL Magnesium (1.6-2.3) mg/dL Total Bilirubin (0.2-1.3) mg/dL AST (17-59) U/L ALT (4-49) U/L Alkaline Phosphatase (38-126) U/L Creatine Kinase (55-170) U/L Troponin I (0.000-0.034) ng/mL NT-Pro-B Natriuret Pep pg/mL Total Protein (6.3-8.2) g/dL Albumin (3.5-5.0) g/dL Urine Color Yellow Urine Appearance Clear (Clear) Urine pH 6.0 (5.0-8.0) Ur Specific [place] 1.038 H (1.001-1.035) Urine Protein Negative (Negative) Urine Glucose (UA) 4+ H (Negative) Urine Ketones Negative (Negative) Urine Blood Negative (Negative) Urine Nitrite Negative (Negative) Urine Bilirubin Negative (Negative) Urine Urobilinogen 2.0 (<2.0) mg/dL Ur Leukocyte Esterase Negative (Negative) Acetone, Qual (Negative) Coronavirus (PCR) Not Detected (Not Detectd) - EKG Data -: EKG Interpreted by Me (EKG is sinus rhythm 80 DC 140 QRS 94 QTC 403) Disposition Clinical Impression: Dehydration, Diabetes mellitus type 1, Nausea & vomiting, Hyperglycemia Disposition: HOME SELF-CARE Condition: Good Instructions (If sedation given, give patient instructions): Acute Nausea and V omiting (ED) Is patient prescribed a controlled substance at d/c from ED?: No Referrals: Brett Miller MD [Primary Care Provider] - 1-2 days
[2020-07-20 23:23] LABS: VBG PH 7.45 (7.31-7.41)
[2020-07-20 23:23] LABS: Basophils # (A) 0.1 k/uL (0-0.2); Basophils % (A) 2 %; Eosinophils # (A) 0.4 k/uL (0-0.7); Eosinophils % (A) 6 %; HCT 44.2 % (39.0-53.0); HGB 15.6 gm/dL (13.0-17.5); Lymphocytes # (A) 1.6 k/uL (1.0-4.8); Lymphocytes % (A) 23 %; MCH 30.7 pg (25.0-35.0); MCHC 35.3 g/dL (31.0-37.0); MCV 86.8 fL (80.0-100.0); Mean Platelet Volume 7.5; Monocytes # (A) 0.3 k/uL (0-1.0); Monocytes % (A) 4 %; Neutrophils # (A) 4.6 k/uL (1.3-7.7); Neutrophils % (A) 64 %; Platelet Count 219 k/uL (150-450); RBC 5.09 m/uL (4.30-5.90); RDW 12.7 % (11.5-15.5); WBC 7.1 k/uL (3.8-10.6)
[2020-07-20 23:28] VITALS: TEMP 98.6
[2020-07-20 23:39] LABS: ALT 20 U/L (4-49); AST 24 U/L (17-59); African American GFR (CKD) >90 (>60 ml/min/1.73 sqM); Albumin 4.1 g/dL (3.5-5.0); Alkaline Phosphatase 123 U/L (38-126); Anion Gap 9 mmol/L; Blood Urea Nitrogen 18 mg/dL (9-20); Calcium 9.6 mg/dL (8.4-10.2); Carbon Dioxide 26 mmol/L (22-30); Chloride 99 mmol/L (98-107); Creatine Kinase 29 U/L (55-170); Glucose 323 mg/dL (74-99); Magnesium 1.7 mg/dL (1.6-2.3); Non-African American GFR(CKD) >90 (>60 ml/min/1.73 sqM); Phosphorus 3.9 mg/dL (2.5-4.5); Potassium 4.2 mmol/L (3.5-5.1); Sodium 134 mmol/L (137-145); Total Bilirubin 0.6 mg/dL (0.2-1.3); Total Protein 6.5 g/dL (6.3-8.2)
[2020-07-20 23:55] LABS: INR 0.9 (<1.2); Prothrombin Time 9.9 sec (9.0-12.0)
[2020-07-21 00:20] LABS: Partial Thromboplastin Time 20.9 sec (22.0-30.0)
[2020-07-21 00:26] VITALS: BP 111/64; PULSE 66; RESP 15
[2020-07-21 00:39] LABS: Appearance,Urine Clear (Clear); Bilirubin,Urine Negative (Negative); Blood,Urine Negative (Negative); Color,Urine Yellow; Glucose,Urine (UA) 4+ (Negative); Ketones,Urine Negative (Negative); Leukocyte Esterase,Urine Negative (Negative); Nitrite,Urine Negative (Negative); Protein,Urine Negative (Negative); Specific Gravity,Urine 1.038 (1.001-1.035)
[2020-07-21] MEDS ORDERED: SODIUM CHLORIDE 0.9% 1,000 ML IV STA (00:52)
[2020-07-21 01:00] LABS: Glucose,Whole Blood 249 mg/dL (75-99)
== END 2020-07-21 01:16 | disposition home or self-care (01) ==
LOC: EC 21:48
DX: E86.0 Dehydration (principal); E10.65 Type 1 diabetes mellitus with hyperglycemia; Z79.4 Long term (current) use of insulin; Z90.49 Acquired absence of other specified parts of digestive tract; Z87.891 Personal history of nicotine dependence; Z87.19 Personal history of other diseases of the digestive system; Z20.822 Contact with and (suspected) exposure to COVID-19
CPT/HCPCS: 99284; 96374; 96361 ×2; 36415 ×2; 93005; 83880; 80053; 82550; 82803; 82009; 83735; 84100; 84484; 85025; 85610; 85730; 81003; 87635; J2405

== ENCOUNTER 2020-08-03 12:37 | Emergency (ER) | payer OTHER ==
[2020-08-03 12:42] VITALS: BP 117/85; PULSE 108; RESP 18; TEMP 98
--- NOTE | 2020-08-03 12:58 | ED ---
ENT HPI - General Source: patient Mode of arrival: ambulatory Limitations: no limitations <Sheridan Everett - Last Filed: 08/07/20 19:04> <Loraine Nevarez - Last Filed: 08/09/20 00:07> - General Chief complaint: ENT Stated complaint: Sore throat & ear infection Time Seen by Provider: 08/03/20 12:48 - History of Present Illness Initial comments: 30-year-old male history of type 1 diabetes presenting to [facility] for chief complaint of ear pain sore throat. He states that the slight sore throat and mild ear pain for the past day he states the ear pain is right-sided. Denies any drainage from the ear external swelling he denies any difficulty breathing swallowing or tolerating oral intake. He states he did not notice any tonsillar lesions. He denies any cough congestion he denies fevers he denies abdominal pain nausea vomiting chest pain or dyspnea. Patient denies increased frequency of urination. Patient has no additional complaints. he appears well nontoxic in no acute distress. afebrile (Sheridan Everett) - Related Data Home Medications Medication Instructions Recorded Confirmed INSULIN ASPART (NovoLOG) [NovoLOG See Protocol SQ AC-TID 07/20/20 08/03/20 (formulary)] Insulin Glargine [Lantus] 15 unit SQ HS 07/20/20 08/03/20 Previous Rx's Medication Instructions Recorded Amoxic-Pot Clav 875-125Mg 1 tab PO Q12HR 7 Days #14 tab 08/03/20 [Augmentin 875-125] Allergies Allergy/AdvReac Type Severity Reaction Status Date / Time No Known Allergies Allergy Verified 08/03/20 12:42 Review of Systems ROS Other: All systems not noted in ROS Statement are negative. <Sheridan Everett - Last Filed: 08/07/20 19:04> ROS Other: All systems not noted in ROS Statement are negative. <Loraine Nevarez - Last Filed: 08/09/20 00:07> ROS Statement: Those systems with pertinent positive or pertinent negative responses have been documented in the HPI. Past Medical History Past Medical History: Asthma, Diabetes Mellitus, GERD/Reflux Additional Past Medical History / Comment(s): Other HX: IDDM type I, gastroparesis History of Any Multi-Drug Resistant Organisms: None Reported Past Surgical History: Cholecystectomy Past Anesthesia/Blood Transfusion Reactions: Postoperative Nausea & Vomiting (PONV) Additional Past Anesthesia/Blood Transfusion Reaction / Comment(s): Pt has never received blood. Past Psychological History: No Psychological Hx Reported Smoking Status: Former smoker Past Alcohol Use History: None Reported Past Drug Use History: Marijuana - Past Family History Father Family Medical History: Diabetes Mellitus, Hypertension Additional Family Medical History / Comment(s): type II diabetes. Mother Family Medical History: COPD Brother(s) Family Medical History: Diabetes Mellitus Additional Family Medical History / Comment(s): IDDM type I Sister(s) Family Medical History: No Reported History <Sheridan Everett - Last Filed: 08/07/20 19:04> General Exam Limitations: no limitations <Sheridan Everett - Last Filed: 08/07/20 19:04> - General Exam Comments Initial Comments: General: The patient is awake and alert, in no distress Eye: Pupils are equal, round and reactive to light, extra-ocular movements are intact. No nystagmus. There is normal conjunctiva bilaterally. No signs of icterus. Ears, nose, mouth and throat: There are moist mucous membranes and no oral lesions. External ear b/l WNL as well as the EAC. TM right sided mild erythema without effusion. Throat mild tonsillar erythema no exudates no uvula deviation the uvula is midline tripoding no drooling no hot potato voice patient is tolerable oral secretions Neck: The neck is supple, there is no tenderness or JVD. Cardiovascular: There is a regular rate and rhythm. No murmur, rub or gallop is appreciated. Respiratory: Lungs are clear to auscultation, respirations are non-labored, breath sounds are equal. No wheezes, stridor, rales, or rhonchi. Gastrointestinal: Soft, non-distended, non-tender abdomen without masses or organomegaly noted. There is no rebound or guarding present. Musculoskeletal: Normal ROM, no tenderness. Strength 5/5. Sensation intact. Radial pulses equal bilaterally 2+. Neurological: A&O x 3. CN II-XII intact grossly, There are no obvious motor or sensory deficits. Coordination appears grossly intact. Speech is normal. Skin: Skin is warm and dry and no rashes or lesions are noted. Psychiatric: Cooperative, appropriate mood & affect, normal judgment. (Sheridan Everett) Course Vital Signs 08/03/20 12:39 Temperature 98 F Pulse Rate 108 H Respiratory 18 Rate Blood Pressure 117/85 O2 Sat by Pulse 99 Oximetry Medical Decision Making <Sheridan Everett - Last Filed: 08/07/20 19:04> <Loraine Nevarez - Last Filed: 08/09/20 00:07> - Medical Decision Making Pt has red TM concern for otitis media will treat with augmentin. patient covid swab pending, i recommended obtaining given sore throat. patient has no additional complaints. he appear nontoxic, afebrile in no distress. discussed case with Dr Nevarez and patient was discharged appearing well. (Sheridan Everett) I was available for consultation in the emergency department. The history and physical exam were done by the midlevel provider. I was consulted for this patients care. I reviewed the case with the midlevel provider and based on their presentation of the patient, I agree with the assessment, medical decision making and plan of care as documented. Chart was dictated using [employer] dictation software. Attempts were made to correct any dictation errors however some typographical errors may persist. Patient was seen during a national state of emergency due to the Covid-19 pandemic. (Loraine Nevarez) - Lab Data Lab Results 08/03/20 Range/Units 13:05 Coronavirus (PCR) Detected A (Not Detected) Disposition Is patient prescribed a controlled substance at d/c from ED?: No Time of Disposition: 12:57 <Sheridan Everett - Last Filed: 08/07/20 19:04> <Loraine Nevarez - Last Filed: 08/09/20 00:07> Clinical Impression: Sore throat, Otitis media Disposition: HOME SELF-CARE Condition: Good Instructions (If sedation given, give patient instructions): Earache (ED) Additional Instructions: Please use medication as discussed. Please follow-up with family doctor in the next 2 days. Monitor sugars. Please return to emergency room if the symptoms increase or worsen or for any other concerns. Prescriptions: Amoxic-Pot Clav 875-125Mg [Augmentin 875-125] 1 tab PO Q12HR 7 Days #14 tab Referrals: Brett Miller MD [Primary Care Provider] - 1-2 days
== END 2020-08-03 13:19 | disposition home or self-care (01) ==
LOC: EC 12:37
DX: H66.90 Otitis media, unspecified, unspecified ear (principal); U07.1 COVID-19; Z20.822 Contact with and (suspected) exposure to COVID-19; Z79.4 Long term (current) use of insulin; Z87.891 Personal history of nicotine dependence
CPT/HCPCS: 99283; U0003; U0005

== ENCOUNTER 2020-08-10 19:52 | Emergency (ER) | payer OTHER ==
[2020-08-10 19:58] VITALS: TEMP 98.5
[2020-08-10] MEDS ORDERED: SODIUM CHLORIDE 0.9% 2,000 ML IV STA (20:43)
[2020-08-10] MEDS ORDERED: ONDANSETRON 4 MG/2 ML VIAL IVP STA (20:43)
--- NOTE | 2020-08-10 20:58 | ED ---
General Adult HPI - General Chief complaint: Nausea/Vomiting/Diarrhea Stated complaint: COVID+/vomiting Time Seen by Provider: 08/10/20 19:55 Source: patient Mode of arrival: ambulatory Limitations: no limitations - History of Present Illness Initial comments: 30-year-old male past medical history of type 1 diabetes, gastroparesis who presents emergency room with reported nausea and vomiting. Patient states that he tested positive for Covid one week ago. He was tested because he was having a sore throat and a cough. Reports that his symptoms have gotten better up until today. He began having nausea with multiple episodes of vomiting. States his been hard for him to hold water down. Patient does have a history of gastroparesis. His glucose is also been running high however he has been in DKA multiple times and states this does not feel similar. She denies any fevers. Has mild epigastric discomfort when vomiting. Denies any current diarrhea. No changes in his urination. Patient has been attempting to control his glucose with a sliding scale. He denies any chest pain. Admits mild shortness of breath. No other alleviating, precipitating or modifying factors - Related Data Home Medications Medication Instructions Recorded Confirmed INSULIN ASPART (NovoLOG) [NovoLOG See Protocol SQ AC-TID 07/20/20 08/03/20 (formulary)] Insulin Glargine [Lantus] 15 unit SQ HS 07/20/20 08/03/20 Previous Rx's Medication Instructions Recorded Amoxic-Pot Clav 875-125Mg 1 tab PO Q12HR 7 Days #14 tab 08/03/20 [Augmentin 875-125] Ondansetron Odt [Zofran Odt] 4 mg PO Q8HR PRN #20 tab 08/10/20 Allergies Allergy/AdvReac Type Severity Reaction Status Date / Time No Known Allergies Allergy Verified 08/10/20 19:58 Review of Systems ROS Statement: Those systems with pertinent positive or pertinent negative responses have been documented in the HPI. ROS Other: All systems not noted in ROS Statement are negative. Past Medical History Past Medical History: Asthma, Diabetes Mellitus, GERD/Reflux Additional Past Medical History / Comment(s): Other HX: IDDM type I, gastroparesis History of Any Multi-Drug Resistant Organisms: None Reported Past Surgical History: Cholecystectomy Past Anesthesia/Blood Transfusion Reactions: Postoperative Nausea & Vomiting (PONV) Additional Past Anesthesia/Blood Transfusion Reaction / Comment(s): Pt has never received blood. Past Psychological History: No Psychological Hx Reported Smoking Status: Former smoker Past Alcohol Use History: None Reported Past Drug Use History: Marijuana - Past Family History Father Family Medical History: Diabetes Mellitus, Hypertension Additional Family Medical History / Comment(s): type II diabetes. Mother Family Medical History: COPD Brother(s) Family Medical History: Diabetes Mellitus Additional Family Medical History / Comment(s): IDDM type I Sister(s) Family Medical History: No Reported History General Exam Limitations: no limitations General appearance: alert, in no apparent distress Head exam: Present: atraumatic, normocephalic, normal inspection Eye exam: Present: normal appearance, PERRL, EOMI. Absent: scleral icterus, conjunctival injection, periorbital swelling ENT exam: Present: normal exam, mucous membranes moist Neck exam: Present: normal inspection. Absent: tenderness, meningismus, lymphadenopathy Respiratory exam: Present: normal lung sounds bilaterally. Absent: respiratory distress, wheezes, rales, rhonchi, stridor Cardiovascular Exam: Present: normal rhythm, tachycardia, normal heart sounds. Absent: systolic murmur, diastolic murmur, rubs, gallop, clicks GI/Abdominal exam: Present: soft, normal bowel sounds. Absent: distended, tenderness, guarding, rebound, rigid Extremities exam: Present: normal inspection, full ROM, normal capillary refill. Absent: tenderness, pedal edema, joint swelling, calf tenderness Back exam: Present: normal inspection Neurological exam: Present: alert, oriented X3, CN II-XII intact Psychiatric exam: Present: normal affect, normal mood Skin exam: Present: warm, dry, intact, normal color. Absent: rash Course Vital Signs 08/10/20 08/10/20 08/10/20 19:53 20:57 22:51 Temperature 98.5 F Pulse Rate 111 H 84 80 Respiratory 22 16 18 Rate Blood Pressure 133/84 121/74 115/76 O2 Sat by Pulse 98 97 98 Oximetry EKG Findings - EKG Comments: EKG Findings:: EKG demonstrates a sinus rhythm with a ventricular rate of 87. SC interval 132. QRS 88. QTC of 418. No acute ST segment elevations or depressions concerning for ischemic changes Medical Decision Making - Medical Decision Making Upon arrival patient is placed in room 5. A thorough history and physical exam was performed. Peripheral IV is established. Patient was given a dose of Zofran and 2 L bolus of normal saline. Laboratory studies were conducted. Glucose is 382 however the patient is negative for any signs of DKA. Chest x-ray is performed which demonstrates no acute process. Discuss results with the patient. Reports to improvement in his symptoms at this time. Patient will be given a Zofran starter pack to go home. Additional prescriptions called the pharmacy. Patient will follow up with his primary doctor in 2-4 days. Continue checking his sugars. Return to the emergency room for any new or worsening symptoms. Patient was discharged home in stable condition - Lab Data Result diagrams: 08/10/20 21:05 08/10/20 21:05 Lab Results 08/10/20 08/10/20 08/10/20 Range/Units 21:05 21:05 21:05 WBC 7.3 (3.8-10.6) k/uL RBC 5.25 (4.30-5.90) m/uL Hgb 15.7 (13.0-17.5) gm/dL Hct 46.5 (39.0-53.0) % MCV 88.5 (80.0-100.0) fL MCH 29.9 (25.0-35.0) pg MCHC 33.7 (31.0-37.0) g/dL RDW 13.4 (11.5-15.5) % Plt Count 256 (150-450) k/uL MPV 7.8 Neutrophils % 75 % Lymphocytes % 18 % Monocytes % 3 % Eosinophils % 3 % Basophils % 1 % Neutrophils # 5.4 (1.3-7.7) k/uL Lymphocytes # 1.3 (1.0-4.8) k/uL Monocytes # 0.2 (0-1.0) k/uL Eosinophils # 0.2 (0-0.7) k/uL Basophils # 0.0 (0-0.2) k/uL D-Dimer 0.20 (<0.60) mg/L FEU Sodium 134 L (137-145) mmol/L Potassium 4.2 (3.5-5.1) mmol/L Chloride 98 (98-107) mmol/L Carbon Dioxide 26 (22-30) mmol/L Anion Gap 10 mmol/L BUN 16 (9-20) mg/dL Creatinine 0.59 L (0.66-1.25) mg/dL Est GFR (CKD-EPI)AfAm >90 (>60 ml/min/1.73 sqM) Est GFR (CKD-EPI)NonAf >90 (>60 ml/min/1.73 sqM) Glucose 382 H (74-99) mg/dL Plasma Lactic Acid Elio (0.7-2.0) mmol/L Calcium 9.6 (8.4-10.2) mg/dL Magnesium 1.5 L (1.6-2.3) mg/dL Total Bilirubin 0.9 (0.2-1.3) mg/dL AST 27 (17-59) U/L ALT 28 (4-49) U/L Alkaline Phosphatase 127 H (38-126) U/L Total Protein 7.1 (6.3-8.2) g/dL Albumin 4.4 (3.5-5.0) g/dL Lipase 27 (23-300) U/L Urine Color Urine Appearance (Clear) Urine pH (5.0-8.0) Ur Specific Mercedes (1.001-1.035) Urine Protein (Negative) Urine Glucose (UA) (Negative) Urine Ketones (Negative) Urine Blood (Negative) Urine Nitrite (Negative) Urine Bilirubin (Negative) Urine Urobilinogen (<2.0) mg/dL Ur Leukocyte Esterase (Negative) Acetone, Qual Negative (Negative) 08/10/20 08/10/20 Range/Units 21:05 21:05 WBC (3.8-10.6) k/uL RBC (4.30-5.90) m/uL Hgb (13.0-17.5) gm/dL Hct (39.0-53.0) % MCV (80.0-100.0) fL MCH (25.0-35.0) pg MCHC (31.0-37.0) g/dL RDW (11.5-15.5) % Plt Count (150-450) k/uL MPV Neutrophils % % Lymphocytes % % Monocytes % % Eosinophils % % Basophils % % Neutrophils # (1.3-7.7) k/uL Lymphocytes # (1.0-4.8) k/uL Monocytes # (0-1.0) k/uL Eosinophils # (0-0.7) k/uL Basophils # (0-0.2) k/uL D-Dimer (<0.60) mg/L FEU Sodium (137-145) mmol/L Potassium (3.5-5.1) mmol/L Chloride (98-107) mmol/L Carbon Dioxide (22-30) mmol/L Anion Gap mmol/L BUN (9-20) mg/dL Creatinine (0.66-1.25) mg/dL Est GFR (CKD-EPI)AfAm (>60 ml/min/1.73 sqM) Est GFR (CKD-EPI)NonAf (>60 ml/min/1.73 sqM) Glucose (74-99) mg/dL Plasma Lactic Acid Elio 1.6 (0.7-2.0) mmol/L Calcium (8.4-10.2) mg/dL Magnesium (1.6-2.3) mg/dL Total Bilirubin (0.2-1.3) mg/dL AST (17-59) U/L ALT (4-49) U/L Alkaline Phosphatase (38-126) U/L Total Protein (6.3-8.2) g/dL Albumin (3.5-5.0) g/dL Lipase (23-300) U/L Urine Color Yellow Urine Appearance Clear (Clear) Urine pH 6.0 (5.0-8.0) Ur Specific Mercedes 1.036 H (1.001-1.035) Urine Protein Negative (Negative) Urine Glucose (UA) 4+ H (Negative) Urine Ketones Negative (Negative) Urine Blood Negative (Negative) Urine Nitrite Negative (Negative) Urine Bilirubin Negative (Negative) Urine Urobilinogen <2.0 (<2.0) mg/dL Ur Leukocyte Esterase Negative (Negative) Acetone, Qual (Negative) Disposition Clinical Impression: Nausea & vomiting, COVID-19, Gastroparesis Disposition: HOME SELF-CARE Condition: Stable Instructions (If sedation given, give patient instructions): Acute Nausea and Vomiting (ED) Additional Instructions: Please follow-up with your primary care doctor in 2-4 days. Return to the emergency room for any new or worsening symptoms Prescriptions: Ondansetron Odt [Zofran Odt] 4 mg PO Q8HR PRN #20 tab PRN Reason: Nausea Is patient prescribed a controlled substance at d/c from ED?: No Referrals: Brett Miller MD [Primary Care Provider] - 1-2 days Time of Disposition: 22:46
[2020-08-10 21:22] LABS: Basophils % (A) 1 %; Eosinophils # (A) 0.2 k/uL (0-0.7); Eosinophils % (A) 3 %; HCT 46.5 % (39.0-53.0); HGB 15.7 gm/dL (13.0-17.5); Lymphocytes # (A) 1.3 k/uL (1.0-4.8); Lymphocytes % (A) 18 %; MCH 29.9 pg (25.0-35.0); MCHC 33.7 g/dL (31.0-37.0); MCV 88.5 fL (80.0-100.0); Mean Platelet Volume 7.8; Monocytes # (A) 0.2 k/uL (0-1.0); Monocytes % (A) 3 %; Neutrophils # (A) 5.4 k/uL (1.3-7.7); Neutrophils % (A) 75 %; Platelet Count 256 k/uL (150-450); RBC 5.25 m/uL (4.30-5.90); RDW 13.4 % (11.5-15.5); WBC 7.3 k/uL (3.8-10.6)
[2020-08-10 21:24] LABS: Appearance,Urine Clear (Clear); Bilirubin,Urine Negative (Negative); Blood,Urine Negative (Negative); Color,Urine Yellow; Glucose,Urine (UA) 4+ (Negative); Ketones,Urine Negative (Negative); Leukocyte Esterase,Urine Negative (Negative); Nitrite,Urine Negative (Negative); Protein,Urine Negative (Negative); Specific Gravity,Urine 1.036 (1.001-1.035); Urobilinogen,Urine <2.0 mg/dL (<2.0)
[2020-08-10 21:32] LABS: ALT 28 U/L (4-49); AST 27 U/L (17-59); African American GFR (CKD) >90 (>60 ml/min/1.73 sqM); Albumin 4.4 g/dL (3.5-5.0); Alkaline Phosphatase 127 U/L (38-126); Anion Gap 10 mmol/L; Blood Urea Nitrogen 16 mg/dL (9-20); Calcium 9.6 mg/dL (8.4-10.2); Carbon Dioxide 26 mmol/L (22-30); Chloride 98 mmol/L (98-107); Glucose 382 mg/dL (74-99); Lipase 27 U/L (23-300); Magnesium 1.5 mg/dL (1.6-2.3); Non-African American GFR(CKD) >90 (>60 ml/min/1.73 sqM); Potassium 4.2 mmol/L (3.5-5.1); Sodium 134 mmol/L (137-145); Total Bilirubin 0.9 mg/dL (0.2-1.3); Total Protein 7.1 g/dL (6.3-8.2)
--- NOTE | 2020-08-10 21:56 | XR ---
EXAMINATION: XR chest 1V portable DATE AND TIME: 08/10/2020 9:16 PM CLINICAL INDICATION: PHH; covid TECHNIQUE: AP upright portable COMPARISON: 05/10/2020 FINDINGS: The lungs are clear. The pleural spaces are negative. The cardiac silhouette is not enlarged. The remainder of the mediastinal silhouette is unremarkable. The skeletal structures and soft tissues are negative for acute findings. IMPRESSION: NO ACUTE PROCESS.
[2020-08-10] MEDS ORDERED: ONDANSETRON 4 MG ODT STARTER PACK 2 TAB BTL PO STA (22:38)
[2020-08-10 22:52] VITALS: BP 115/76; PULSE 80; RESP 18
== END 2020-08-10 22:52 | disposition home or self-care (01) ==
LOC: EC 19:52
DX: U07.1 COVID-19 (principal); R00.0 Tachycardia, unspecified; E10.43 Type 1 diabetes mellitus with diabetic autonomic (poly)neuropathy; K31.84 Gastroparesis; Z79.4 Long term (current) use of insulin; Z90.49 Acquired absence of other specified parts of digestive tract; Z87.891 Personal history of nicotine dependence
CPT/HCPCS: 99284; 96374; 96361 ×2; 36415; 93005; 85379; 80053; 82009; 83605; 83690; 83735; 85025; 81003; 71045; J2405; S0119

== ENCOUNTER 2020-09-09 20:07 | Emergency (ER) | payer OTHER ==
[2020-09-09 20:12] VITALS: TEMP 98.3
[2020-09-09 20:14] LABS: Glucose,Whole Blood 417 mg/dL (75-99)
[2020-09-09] MEDS ORDERED: SODIUM CHLORIDE 0.9% 2,000 ML IV ONE (20:19)
[2020-09-09] MEDS ORDERED: INSULIN ASPART (NovoLOG) 100 UNIT/ML VIAL SQ STA (20:22)
--- NOTE | 2020-09-09 20:31 | ED ---
Recheck HPI - General Chief Complaint: Recheck/Abnormal Lab/Rx Stated Complaint: High Blood Sugar Time Seen by Provider: 09/09/20 20:13 Source: patient Mode of arrival: wheelchair Limitations: no limitations - History of Present Illness Initial Comments: 30 year-old male patient with past history of Type I diabetes mellitus comes in for evaluation of elevated blood sugars. States he has had frequent high blood sugars over the last two days. He has been doing his sliding scale insulin as ordered. States that he has been extremely thirsty and urinating frequently. Denies any recent illness, vomiting, or fever. Denies any recent dosage change to his insulin. Patient denies any recent rash, cough, shortness of breath, chest pain, abdominal pain, diarrhea, constipation, back pain, numbness, tingling, dizziness, weakness, hematuria, dysuria, urinary urgency, headache, visual changes, or any other complaints. - Related Data Home Medications Medication Instructions Recorded Confirmed INSULIN ASPART (NovoLOG) [NovoLOG See Protocol SQ AC-TID 07/20/20 08/03/20 (formulary)] Insulin Glargine [Lantus] 15 unit SQ HS 07/20/20 08/03/20 Previous Rx's Medication Instructions Recorded Amoxic-Pot Clav 875-125Mg 1 tab PO Q12HR 7 Days #14 tab 08/03/20 [Augmentin 875-125] Ondansetron Odt [Zofran Odt] 4 mg PO Q8HR PRN #20 tab 08/10/20 Allergies Allergy/AdvReac Type Severity Reaction Status Date / Time No Known Allergies Allergy Verified 09/09/20 20:12 Review of Systems ROS Statement: Those systems with pertinent positive or pertinent negative responses have been documented in the HPI. ROS Other: All systems not noted in ROS Statement are negative. Past Medical History Past Medical History: Asthma, Diabetes Mellitus, GERD/Reflux Additional Past Medical History / Comment(s): Other HX: IDDM type I, gastroparesis History of Any Multi-Drug Resistant Organisms: None Reported Past Surgical History: Cholecystectomy Past Anesthesia/Blood Transfusion Reactions: Postoperative Nausea & Vomiting (PONV) Additional Past Anesthesia/Blood Transfusion Reaction / Comment(s): Pt has never received blood. Past Psychological History: No Psychological Hx Reported Smoking Status: Former smoker Past Alcohol Use History: None Reported Past Drug Use History: Marijuana - Past Family History Father Family Medical History: Diabetes Mellitus, Hypertension Additional Family Medical History / Comment(s): type II diabetes. Mother Family Medical History: COPD Brother(s) Family Medical History: Diabetes Mellitus Additional Family Medical History / Comment(s): IDDM type I Sister(s) Family Medical History: No Reported History General Exam Limitations: no limitations General appearance: alert, in no apparent distress, other (This is a well developed, well nourished adult patient in no acute distress. Vital signs upon presentation Are 98.3F, pulse 109, respirations 20, blood pressure 151/84, pulse ox 99% on room air.) Eye exam: Present: normal appearance, PERRL, EOMI. Absent: scleral icterus, conjunctival injection, periorbital swelling ENT exam: Present: normal exam, normal oropharynx, mucous membranes moist Respiratory exam: Present: normal lung sounds bilaterally. Absent: respiratory distress, wheezes, rales, rhonchi, stridor Cardiovascular Exam: Present: regular rate, normal rhythm, normal heart sounds. Absent: systolic murmur, diastolic murmur, rubs, gallop, clicks GI/Abdominal exam: Present: soft, normal bowel sounds. Absent: distended, tenderness, guarding, rebound, rigid Neurological exam: Present: alert, oriented X3, CN II-XII intact Psychiatric exam: Present: normal affect, normal mood Skin exam: Present: warm, dry, intact, normal color. Absent: rash Course Vital Signs 09/09/20 09/09/20 20:10 22:14 Temperature 98.3 F Pulse Rate 109 H 81 Respiratory 20 16 Rate Blood Pressure 151/84 111/67 O2 Sat by Pulse 99 97 Oximetry Medical Decision Making - Medical Decision Making 30-year-old male patient with past history significant for type 1 diabetes mellitus presents to the emergency department today for evaluation of hyperglycemia and muscle cramping. Physical examination reveals soft nontender abdomen. Labs reviewed and are unremarkable. He did have elevated blood sugar, is given dose of NovoLog here in the department. Upon recheck his blood sugar did improve to around 185. He'll be discharged follow up with his primary care physician for recheck in 1-2 days. He is urged to discuss possible adjustment in his insulin dosage should his blood sugars remain elevated. Return parame naomys were discussed in detail. He verbalizes understanding and agrees with this plan. My attending is Dr. George - Lab Data Result diagrams: 09/09/20 20:35 09/09/20 20:38 Lab Results 09/09/20 09/09/20 09/09/20 Range/Units 20:11 20:26 20:35 WBC 6.9 (3.8-10.6) k/uL RBC 4.93 (4.30-5.90) m/uL Hgb 15.0 (13.0-17.5) gm/dL Hct 43.4 (39.0-53.0) % MCV 88.2 (80.0-100.0) fL MCH 30.4 (25.0-35.0) pg MCHC 34.4 (31.0-37.0) g/dL RDW 12.8 (11.5-15.5) % Plt Count 219 (150-450) k/uL MPV 7.5 Neutrophils % 61 % Lymphocytes % 24 % Monocytes % 3 % Eosinophils % 9 % Basophils % 1 % Neutrophils # 4.2 (1.3-7.7) k/uL Lymphocytes # 1.7 (1.0-4.8) k/uL Monocytes # 0.2 (0-1.0) k/uL Eosinophils # 0.6 (0-0.7) k/uL Basophils # 0.1 (0-0.2) k/uL Sodium (137-145) mmol/L Potassium (3.5-5.1) mmol/L Chloride (98-107) mmol/L Carbon Dioxide (22-30) mmol/L Anion Gap mmol/L BUN (9-20) mg/dL Creatinine (0.66-1.25) mg/dL Est GFR (CKD-EPI)AfAm (>60 ml/min/1.73 sqM) Est GFR (CKD-EPI)NonAf (>60 ml/min/1.73 sqM) Glucose (74-99) mg/dL POC Glucose (mg/dL) 417 H (75-99) mg/dL POC Glu Can Marker ID Keesha Medrano Calcium (8.4-10.2) mg/dL Phosphorus (2.5-4.5) mg/dL Magnesium (1.6-2.3) mg/dL Total Bilirubin (0.2-1.3) mg/dL AST (17-59) U/L ALT (4-49) U/L Alkaline Phosphatase (38-126) U/L Total Protein (6.3-8.2) g/dL Albumin (3.5-5.0) g/dL Urine Color Light Yellow Urine Appearance Clear (Clear) Urine pH 5.5 (5.0-8.0) Ur Specific Sawyer 1.037 H (1.001-1.035) Urine Protein Negative (Negative) Urine Glucose (UA) 4+ H (Negative) Urine Ketones Negative (Negative) Urine Blood Negative (Negative) Urine Nitrite Negative (Negative) Urine Bilirubin Negative (Negative) Urine Urobilinogen <2.0 (<2.0) mg/dL Ur Leukocyte Esterase Negative (Negative) Acetone, Qual (Negative) 09/09/20 09/09/20 Range/Units 20:38 21:37 WBC (3.8-10.6) k/uL RBC (4.30-5.90) m/uL Hgb (13.0-17.5) gm/dL Hct (39.0-53.0) % MCV (80.0-100.0) fL MCH (25.0-35.0) pg MCHC (31.0-37.0) g/dL RDW (11.5-15.5) % Plt Count (150-450) k/uL MPV Neutrophils % % Lymphocytes % % Monocytes % % Eosinophils % % Basophils % % Neutrophils # (1.3-7.7) k/uL Lymphocytes # (1.0-4.8) k/uL Monocytes # (0-1.0) k/uL Eosinophils # (0-0.7) k/uL Basophils # (0-0.2) k/uL Sodium 134 L (137-145) mmol/L Potassium 4.0 (3.5-5.1) mmol/L Chloride 97 L (98-107) mmol/L Carbon Dioxide 28 (22-30) mmol/L Anion Gap 9 mmol/L BUN 12 (9-20) mg/dL Creatinine 0.65 L (0.66-1.25) mg/dL Est GFR (CKD-EPI)AfAm >90 (>60 ml/min/1.73 sqM) Est GFR (CKD-EPI)NonAf >90 (>60 ml/min/1.73 sqM) Glucose 367 H (74-99) mg/dL POC Glucose (mg/dL) 185 H (75-99) mg/dL POC Glu Can Marker ID Marie Duvall Calcium 9.4 (8.4-10.2) mg/dL Phosphorus 3.6 (2.5-4.5) mg/dL Magnesium 1.6 (1.6-2.3) mg/dL Total Bilirubin 0.5 (0.2-1.3) mg/dL AST 21 (17-59) U/L ALT 20 (4-49) U/L Alkaline Phosphatase 116 (38-126) U/L Total Protein 6.6 (6.3-8.2) g/dL Albumin 4.4 (3.5-5.0) g/dL Urine Color Urine Appearance (Clear) Urine pH (5.0-8.0) Ur Specific Sawyer (1.001-1.035) Urine Protein (Negative) Urine Glucose (UA) (Negative) Urine Ketones (Negative) Urine Blood (Negative) Urine Nitrite (Negative) Urine Bilirubin (Negative) Urine Urobilinogen (<2.0) mg/dL Ur Leukocyte Esterase (Negative) Acetone, Qual Negative (Negative) Disposition Clinical Impression: Hyperglycemia Disposition: HOME SELF-CARE Condition: Good Instructions (If sedation given, give patient instructions): Diabetic Hyperglycemia (ED) Additional Instructions: Increase fluids. Follow-up through primary care physician, discussed changes to your insulin dosages to continue to have high sugars. Return to the emergency department for any new, worsening, or concerning symptoms. Is patient prescribed a controlled substance at d/c from ED?: No Referrals: Brett Miller MD [Primary Care Provider] - 1-2 days Time of Disposition: 22:00
[2020-09-09 20:47] LABS: Basophils # (A) 0.1 k/uL (0-0.2); Basophils % (A) 1 %; Eosinophils # (A) 0.6 k/uL (0-0.7); Eosinophils % (A) 9 %; HCT 43.4 % (39.0-53.0); Lymphocytes # (A) 1.7 k/uL (1.0-4.8); Lymphocytes % (A) 24 %; MCH 30.4 pg (25.0-35.0); MCHC 34.4 g/dL (31.0-37.0); MCV 88.2 fL (80.0-100.0); Mean Platelet Volume 7.5; Monocytes # (A) 0.2 k/uL (0-1.0); Monocytes % (A) 3 %; Neutrophils # (A) 4.2 k/uL (1.3-7.7); Neutrophils % (A) 61 %; Platelet Count 219 k/uL (150-450); RBC 4.93 m/uL (4.30-5.90); RDW 12.8 % (11.5-15.5); WBC 6.9 k/uL (3.8-10.6)
[2020-09-09 20:58] LABS: ALT 20 U/L (4-49); AST 21 U/L (17-59); African American GFR (CKD) >90 (>60 ml/min/1.73 sqM); Albumin 4.4 g/dL (3.5-5.0); Alkaline Phosphatase 116 U/L (38-126); Anion Gap 9 mmol/L; Blood Urea Nitrogen 12 mg/dL (9-20); Calcium 9.4 mg/dL (8.4-10.2); Carbon Dioxide 28 mmol/L (22-30); Chloride 97 mmol/L (98-107); Glucose 367 mg/dL (74-99); Magnesium 1.6 mg/dL (1.6-2.3); Non-African American GFR(CKD) >90 (>60 ml/min/1.73 sqM); Phosphorus 3.6 mg/dL (2.5-4.5); Sodium 134 mmol/L (137-145); Total Bilirubin 0.5 mg/dL (0.2-1.3); Total Protein 6.6 g/dL (6.3-8.2)
[2020-09-09 21:04] LABS: Appearance,Urine Clear (Clear); Bilirubin,Urine Negative (Negative); Blood,Urine Negative (Negative); Color,Urine Light Yellow; Glucose,Urine (UA) 4+ (Negative); Ketones,Urine Negative (Negative); Leukocyte Esterase,Urine Negative (Negative); Nitrite,Urine Negative (Negative); PH, Urine 5.5 (5.0-8.0); Protein,Urine Negative (Negative); Specific Gravity,Urine 1.037 (1.001-1.035); Urobilinogen,Urine <2.0 mg/dL (<2.0)
[2020-09-09 21:39] LABS: Glucose,Whole Blood 185 mg/dL (75-99)
[2020-09-09 22:16] VITALS: BP 111/67; PULSE 81; RESP 16
== END 2020-09-09 23:02 | disposition home or self-care (01) ==
LOC: EC 20:07
DX: E10.65 Type 1 diabetes mellitus with hyperglycemia (principal); Z79.4 Long term (current) use of insulin; Z90.49 Acquired absence of other specified parts of digestive tract; Z87.891 Personal history of nicotine dependence; Z83.3 Family history of diabetes mellitus
CPT/HCPCS: 36415; 80053; 81003; 82009; 83735; 84100; 85025; 99283

== ENCOUNTER 2020-09-14 19:51 | Emergency (ER) | payer OTHER ==
[2020-09-14 19:57] VITALS: TEMP 98
[2020-09-14 19:58] LABS: Glucose,Whole Blood 387 mg/dL (75-99)
[2020-09-14] MEDS ORDERED: SODIUM CHLORIDE 0.9% 500 ML 500 ML IV STA (20:08)
[2020-09-14] MEDS ORDERED: SODIUM CHLORIDE 0.9% 1,000 ML IV STA (20:08)
--- NOTE | 2020-09-14 20:19 | ED ---
Recheck HPI - General Source: patient Mode of arrival: ambulatory Limitations: no limitations <Romeo Barkley - Last Filed: 09/14/20 21:58> <Loraine Nevarez - Last Filed: 09/15/20 13:19> - General Chief Complaint: Recheck/Abnormal Lab/Rx Stated Complaint: High blood sugar and heart pounding Time Seen by Provider: 09/14/20 20:07 - History of Present Illness Initial Comments: 30-year-old male with history of type 1 diabetes presents to emergency prompt a chief complaint of high blood sugar. Patient reports he recently got a new glucometer and he thinks it has been reading lower then what our hospital glucometers are reading. Patient reports he feels like he is going DKA and feels dehydrated. Patient reports a cramping sensation in his legs and also feels weak. Patient reports his last glucose reading at home was 260. Patient takes Lantus at night and is on a sliding scale throughout the day. Patient does not see an potable water treatment operator. Patient denies nausea vomiting diarrhea. Denies any pain cough. He does feel slight palpitations but denies any chest pain or shortness of breath. Patient believes this is anxiety. (Romeo Barkley) - Related Data Home Medications Medication Instructions Recorded Confirmed INSULIN ASPART (NovoLOG) [NovoLOG See Protocol SQ AC-TID 07/20/20 08/03/20 (formulary)] Insulin Glargine [Lantus] 15 unit SQ HS 07/20/20 08/03/20 Previous Rx's Medication Instructions Recorded Amoxic-Pot Clav 875-125Mg 1 tab PO Q12HR 7 Days #14 tab 08/03/20 [Augmentin 875-125] Ondansetron Odt [Zofran Odt] 4 mg PO Q8HR PRN #20 tab 08/10/20 Allergies Allergy/AdvReac Type Severity Reaction Status Date / Time No Known Allergies Allergy Verified 09/14/20 19:56 Review of Systems ROS Other: All systems not noted in ROS Statement are negative. <Romeo Barkley - Last Filed: 09/14/20 21:58> ROS Other: All systems not noted in ROS Statement are negative. <Loraine Nevarez - Last Filed: 09/15/20 13:19> ROS Statement: Those systems with pertinent positive or pertinent negative responses have been documented in the HPI. Past Medical History Past Medical History: Asthma, Diabetes Mellitus, GERD/Reflux Additional Past Medical History / Comment(s): Other HX: IDDM type I, gastroparesis History of Any Multi-Drug Resistant Organisms: None Reported Past Surgical History: Cholecystectomy Past Anesthesia/Blood Transfusion Reactions: Postoperative Nausea & Vomiting (PONV) Additional Past Anesthesia/Blood Transfusion Reaction / Comment(s): Pt has never received blood. Past Psychological History: No Psychological Hx Reported Smoking Status: Former smoker Past Alcohol Use History: None Reported Past Drug Use History: Marijuana - Past Family History Father Family Medical History: Diabetes Mellitus, Hypertension Additional Family Medical History / Comment(s): type II diabetes. Mother Family Medical History: COPD Brother(s) Family Medical History: Diabetes Mellitus Additional Family Medical History / Comment(s): IDDM type I Sister(s) Family Medical History: No Reported History <Romeo Barkley - Last Filed: 09/14/20 21:58> General Exam Limitations: no limitations General appearance: alert, in no apparent distress, anxious Head exam: Present: atraumatic, normocephalic, normal inspection Eye exam: Present: normal appearance, PERRL, EOMI Pupils: Present: normal accommodation ENT exam: Present: normal exam, normal oropharynx, mucous membranes moist, TM's normal bilaterally, normal external ear exam Neck exam: Present: normal inspection, full ROM. Absent: tenderness Respiratory exam: Present: normal lung sounds bilaterally. Absent: respiratory distress Cardiovascular Exam: Present: normal rhythm, tachycardia, normal heart sounds GI/Abdominal exam: Present: soft. Absent: distended, tenderness, guarding Extremities exam: Present: normal inspection, full ROM, normal capillary refill. Absent: tenderness, pedal edema, joint swelling Back exam: Present: normal inspection, full ROM. Absent: tenderness, CVA tenderness (R), CVA tenderness (L) Neurological exam: Present: alert, oriented X3, CN II-XII intact, normal gait Psychiatric exam: Present: normal affect, anxious Skin exam: Present: warm, dry, intact, normal color <Romeo Barkley - Last Filed: 09/14/20 21:58> Course Vital Signs 09/14/20 09/14/20 09/14/20 19:53 20:56 22:04 Temperature 98 F Pulse Rate 119 H 86 96 Respiratory 20 17 16 Rate Blood Pressure 142/93 126/78 131/82 O2 Sat by Pulse 100 99 98 Oximetry Medical Decision Making - Lab Data Result diagrams: 09/14/20 20:15 09/14/20 20:15 <Romeo Barkley - Last Filed: 09/14/20 21:58> - Lab Data Result diagrams: 09/14/20 20:15 09/14/20 20:15 <Loraine Nevarez - Last Filed: 09/15/20 13:19> - Medical Decision Making 30-year-old male with history of type 1 diabetes presents to the emergency room with a chief complaint of high blood sugar. On physical examination, patient is anxious when conversation. No signs of clinical dehydration. Blood glucose on arrival was 386. CBC remarkable. CMP reveals blood glucose of 404. Anion gap 12. VBG unremarkable. UA plus for glucose and +1 ketones. Acetone negative. He's not in DKA. Patient was given 1.5 L of IV bolus fluids and 6 units of regular insulin. On reevaluation, patient reports improvement in symptoms. Repeat Accu-Chek is 194. EKG showing sinus rhythm and no ST or T-wave changes. Patient was advised to follow-up with primary care physician. Return parameters discussed with patient was understanding and agreeable. Case discussed with Timbo Patel (Romeo Barkley) I was available for consultation in the emergency department. The history and physical exam were done by the midlevel provider. I was consulted for this patients care. I reviewed the case with the midlevel provider and based on their presentation of the patient, I agree with the assessment, medical decision making and plan of care as documented. Chart was dictated using [employer] dictation software. Attempts were made to correct any dictation errors however some typographical errors may persist. Patient was seen during a national state of emergency due to the Covid-19 pandemic. (Loraine Nevarez) - Lab Data Lab Results 09/14/20 09/14/20 09/14/20 Range/Units 19:57 20:15 20:15 WBC 8.2 (3.8-10.6) k/uL RBC 5.30 (4.30-5.90) m/uL Hgb 15.9 (13.0-17.5) gm/dL Hct 46.6 (39.0-53.0) % MCV 88.0 (80.0-100.0) fL MCH 30.1 (25.0-35.0) pg MCHC 34.2 (31.0-37.0) g/dL RDW 13.4 (11.5-15.5) % Plt Count 266 (150-450) k/uL MPV 7.5 Neutrophils % 69 % Lymphocytes % 21 % Monocytes % 3 % Eosinophils % 5 % Basophils % 1 % Neutrophils # 5.7 (1.3-7.7) k/uL Lymphocytes # 1.7 (1.0-4.8) k/uL Monocytes # 0.3 (0-1.0) k/uL Eosinophils # 0.4 (0-0.7) k/uL Basophils # 0.1 (0-0.2) k/uL VBG pH (7.31-7.41) VBG pCO2 (37-51) mmHg VBG HCO3 (24-28) mmol/L Sodium (137-145) mmol/L Potassium (3.5-5.1) mmol/L Chloride (98-107) mmol/L Carbon Dioxide (22-30) mmol/L Anion Gap mmol/L BUN (9-20) mg/dL Creatinine (0.66-1.25) mg/dL Est GFR (CKD-EPI)AfAm (>60 ml/min/1.73 sqM) Est GFR (CKD-EPI)NonAf (>60 ml/min/1.73 sqM) Glucose (74-99) mg/dL POC Glucose (mg/dL) 387 H (75-99) mg/dL POC Glu Edgerman ID Candido Lara Calcium (8.4-10.2) mg/dL Total Bilirubin (0.2-1.3) mg/dL AST (17-59) U/L ALT (4-49) U/L Alkaline Phosphatase (38-126) U/L Total Protein (6.3-8.2) g/dL Albumin (3.5-5.0) g/dL Urine Color Light Yellow Urine Appearance Clear (Clear) Urine pH 6.5 (5.0-8.0) Ur Specific [place] 1.024 (1.001-1.035) Urine Protein Negative (Negative) Urine Glucose (UA) 4+ H (Negative) Urine Ketones 1+ H (Negative) Urine Blood Negative (Negative) Urine Nitrite Negative (Negative) Urine Bilirubin Negative (Negative) Urine Urobilinogen <2.0 (<2.0) mg/dL Ur Leukocyte Esterase Negative (Negative) Acetone, Qual (Negative) 09/14/20 09/14/20 09/14/20 Range/Units 20:15 20:15 21:50 WBC (3.8-10.6) k/uL RBC (4.30-5.90) m/uL Hgb (13.0-17.5) gm/dL Hct (39.0-53.0) % MCV (80.0-100.0) fL MCH (25.0-35.0) pg MCHC (31.0-37.0) g/dL RDW (11.5-15.5) % Plt Count (150-450) k/uL MPV Neutrophils % % Lymphocytes % % Monocytes % % Eosinophils % % Basophils % % Neutrophils # (1.3-7.7) k/uL Lymphocytes # (1.0-4.8) k/uL Monocytes # (0-1.0) k/uL Eosinophils # (0-0.7) k/uL Basophils # (0-0.2) k/uL VBG pH 7.40 (7.31-7.41) VBG pCO2 45 (37-51) mmHg VBG HCO3 27 (24-28) mmol/L Sodium 131 L (137-145) mmol/L Potassium 4.3 (3.5-5.1) mmol/L Chloride 93 L (98-107) mmol/L Carbon Dioxide 26 (22-30) mmol/L Anion Gap 12 mmol/L BUN 13 (9-20) mg/dL Creatinine 0.71 (0.66-1.25) mg/dL Est GFR (CKD-EPI)AfAm >90 (>60 ml/min/1.73 sqM) Est GFR (CKD-EPI)NonAf >90 (>60 ml/min/1.73 sqM) Glucose 404 H (74-99) mg/dL POC Glucose (mg/dL) 192 H (75-99) mg/dL POC Glu Edgerman ID Natacha Palomo Calcium 9.7 (8.4-10.2) mg/dL Total Bilirubin 0.9 (0.2-1.3) mg/dL AST 27 (17-59) U/L ALT 25 (4-49) U/L Alkaline Phosphatase 123 (38-126) U/L Total Protein 7.5 (6.3-8.2) g/dL Albumin 4.9 (3.5-5.0) g/dL Urine Color Urine Appearance (Clear) Urine pH (5.0-8.0) Ur Specific [place] (1.001-1.035) Urine Protein (Negative) Urine Glucose (UA) (Negative) Urine Ketones (Negative) Urine Blood (Negative) Urine Nitrite (Negative) Urine Bilirubin (Negative) Urine Urobilinogen (<2.0) mg/dL Ur Leukocyte Esterase (Negative) Acetone, Qual Negative (Negative) - EKG Data EKG Comments: Sinus rhythm with no ST or T-wave changes. Ventricular rate 90, UT 138, QRS 92, QTC 425. (Romeo Barkley) Disposition Is patient prescribed a controlled substance at d/c from ED?: No Time of Disposition: 21:26 <Romeo Barkley - Last Filed: 09/14/20 21:58> <Loraine Nevarez - Last Filed: 09/15/20 13:19> Clinical Impression: Hyperglycemia Disposition: HOME SELF-CARE Condition: Stable Instructions (If sedation given, give patient instructions): Basic Carbohydrate Counting (DC) Additional Instructions: Follow-up with your primary care physician or an potable water treatment operator. Please return to the Emergency Department if symptoms worsen or any other concerns. Referrals: Brett Miller MD [Primary Care Provider] - 1-2 days
[2020-09-14 20:28] LABS: Basophils # (A) 0.1 k/uL (0-0.2); Basophils % (A) 1 %; Eosinophils # (A) 0.4 k/uL (0-0.7); Eosinophils % (A) 5 %; HCT 46.6 % (39.0-53.0); HGB 15.9 gm/dL (13.0-17.5); Lymphocytes # (A) 1.7 k/uL (1.0-4.8); Lymphocytes % (A) 21 %; MCH 30.1 pg (25.0-35.0); MCHC 34.2 g/dL (31.0-37.0); Mean Platelet Volume 7.5; Monocytes # (A) 0.3 k/uL (0-1.0); Monocytes % (A) 3 %; Neutrophils # (A) 5.7 k/uL (1.3-7.7); Neutrophils % (A) 69 %; Platelet Count 266 k/uL (150-450); RDW 13.4 % (11.5-15.5); WBC 8.2 k/uL (3.8-10.6)
[2020-09-14 20:29] LABS: VBG PH 7.4 (7.31-7.41)
[2020-09-14 20:40] LABS: ALT 25 U/L (4-49); AST 27 U/L (17-59); African American GFR (CKD) >90 (>60 ml/min/1.73 sqM); Albumin 4.9 g/dL (3.5-5.0); Alkaline Phosphatase 123 U/L (38-126); Anion Gap 12 mmol/L; Blood Urea Nitrogen 13 mg/dL (9-20); Calcium 9.7 mg/dL (8.4-10.2); Carbon Dioxide 26 mmol/L (22-30); Chloride 93 mmol/L (98-107); Glucose 404 mg/dL (74-99); Non-African American GFR(CKD) >90 (>60 ml/min/1.73 sqM); Potassium 4.3 mmol/L (3.5-5.1); Sodium 131 mmol/L (137-145); Total Bilirubin 0.9 mg/dL (0.2-1.3); Total Protein 7.5 g/dL (6.3-8.2)
[2020-09-14] MEDS ORDERED: INSULIN REGULAR 100 UNIT/ML VIAL IV ONE (20:49)
[2020-09-14 20:55] LABS: Appearance,Urine Clear (Clear); Bilirubin,Urine Negative (Negative); Blood,Urine Negative (Negative); Color,Urine Light Yellow; Glucose,Urine (UA) 4+ (Negative); Ketones,Urine 1+ (Negative); Leukocyte Esterase,Urine Negative (Negative); Nitrite,Urine Negative (Negative); PH, Urine 6.5 (5.0-8.0); Protein,Urine Negative (Negative); Specific Gravity,Urine 1.024 (1.001-1.035); Urobilinogen,Urine <2.0 mg/dL (<2.0)
[2020-09-14 21:52] LABS: Glucose,Whole Blood 192 mg/dL (75-99)
[2020-09-14 22:05] VITALS: BP 131/82; PULSE 96; RESP 16
== END 2020-09-14 22:05 | disposition home or self-care (01) ==
LOC: EC 19:51
DX: E10.65 Type 1 diabetes mellitus with hyperglycemia (principal); F41.9 Anxiety disorder, unspecified; J45.909 Unspecified asthma, uncomplicated; K21.9 Gastro-esophageal reflux disease without esophagitis; F12.90 Cannabis use, unspecified, uncomplicated; Z79.4 Long term (current) use of insulin; Z87.891 Personal history of nicotine dependence
CPT/HCPCS: 36415; 80053; 81003; 82009; 82803; 85025; 93005; 96361; 96374; 99285

== ENCOUNTER 2020-09-16 20:07 | Emergency (ER) | payer OTHER ==
[2020-09-16 20:16] VITALS: TEMP 98
[2020-09-16 20:24] LABS: Glucose,Whole Blood 451 mg/dL (75-99)
--- NOTE | 2020-09-16 20:31 | ED ---
General Adult HPI - General Chief complaint: Shortness of Breath Stated complaint: SOB,Shaky,Weakness Time Seen by Provider: 09/16/20 20:30 Source: patient Mode of arrival: wheelchair Limitations: no limitations - History of Present Illness Initial comments: Patient presents to the ED with his mother for evaluation. Patient states that ever since he got over a Covid infection about a month ago, he has been experiencing intermittent episodes of rapid heart palpitations, dyspnea and generalized weakness. Patient states that he has been told in the past that his symptoms were secondary to anxiety. Patient states that he has had these symptoms all day today. Patient states that his blood glucose levels has also been elevated today, and he states that he had a blood glucose reading in the 300s this evening. Patient states that he is a type I diabetic. Patient denies having any pain, fever or chills, headache, focal neuro deficit, chest pain, cough or cold symptoms, syncope, abdominal pain, nausea/vomiting/diarrhea, dysuria/hematuria/urinary symptoms, leg or calf swelling or pain, or any other symptoms or complaints. - Related Data Home Medications Medication Instructions Recorded Confirmed INSULIN ASPART (NovoLOG) [NovoLOG See Protocol SQ AC-TID 07/20/20 08/03/20 (formulary)] Insulin Glargine [Lantus] 15 unit SQ HS 07/20/20 08/03/20 Previous Rx's Medication Instructions Recorded Amoxic-Pot Clav 875-125Mg 1 tab PO Q12HR 7 Days #14 tab 08/03/20 [Augmentin 875-125] Ondansetron Odt [Zofran Odt] 4 mg PO Q8HR PRN #20 tab 08/10/20 Allergies Allergy/AdvReac Type Severity Reaction Status Date / Time No Known Allergies Allergy Verified 09/16/20 20:14 Review of Systems ROS Statement: Those systems with pertinent positive or pertinent negative responses have been documented in the HPI. ROS Other: All systems not noted in ROS Statement are negative. Past Medical History Past Medical History: Asthma, Diabetes Mellitus, GERD/Reflux Additional Past Medical History / Comment(s): DM type I, gastroparesis, History of Any Multi-Drug Resistant Organisms: None Reported Past Surgical History: Cholecystectomy Past Anesthesia/Blood Transfusion Reactions: Postoperative Nausea & Vomiting (PONV) Additional Past Anesthesia/Blood Transfusion Reaction / Comment(s): Pt has never received blood. Past Psychological History: No Psychological Hx Reported Smoking Status: Vaper Past Alcohol Use History: None Reported Past Drug Use History: Marijuana - Past Family History Father Family Medical History: Diabetes Mellitus, Hypertension Additional Family Medical History / Comment(s): type II diabetes. Mother Family Medical History: COPD Brother(s) Family Medical History: Diabetes Mellitus Additional Family Medical History / Comment(s): IDDM type I Sister(s) Family Medical History: No Reported History General Exam Limitations: no limitations General appearance: alert, in no apparent distress Head exam: Present: atraumatic, normocephalic Eye exam: Present: normal appearance, PERRL, EOMI ENT exam: Present: mucous membranes dry Neck exam: Present: other (Trachea is in midline) Respiratory exam: Present: normal lung sounds bilaterally. Absent: respiratory distress, wheezes, rales, rhonchi, stridor Cardiovascular Exam: Present: normal rhythm, tachycardia, normal heart sounds, other (Normal radial pulses bilaterally) GI/Abdominal exam: Present: soft. Absent: distended, tenderness, guarding Extremities exam: Present: other (Negative Homans sign bilaterally). Absent: tenderness, pedal edema, calf tenderness Psychiatric exam: Present: anxious Skin exam: Present: warm, dry, intact, normal color Course Vital Signs 09/16/20 09/16/20 20:11 22:26 Temperature 98.0 F Pulse Rate 117 H 70 Respiratory 18 19 Rate Blood Pressure 136/85 122/78 O2 Sat by Pulse 98 99 Oximetry - Reevaluation(s) Reevaluation #1: 09/17/20 00:10 Patient denies development of any new symptoms while in the ED. Patient's blood glucose has now improved to 251. Patient is not acidotic or ketotic. Patient remains alert and breathing comfortably with a normal room air oxygen saturation. Patient and mother are aware of the patient's test results, and they both feel comfortable with the patient being discharged home at this time. Patient was counseled about hyperglycemia and his symptoms. Patient was clearly explained return and follow-up instructions. Patient was instructed to have a low threshold for return to the ED should his symptoms worsen. Patient was also instructed to follow up closely with his primary care provider. EKG Findings - EKG Comments: EKG Findings:: Normal sinus rhythm, ventricular rate of 97 bpm, no ectopy, normal [place] and QRS intervals, normal QT interval, normal axis, no ST or T-wave abnormality Medical Decision Making - Medical Decision Making Other than hyperglycemia, the patient's labs and ED workup were fairly unremarkable. Patient's hyperglycemia has improved with IV fluid hydration and subcu insulin administration. I do not suspect an emergent medical condition is etiology of the patient's symptoms. Given the temporal association with the onset of the patient's symptoms after his recovery from Covid infection, I exp lained to the patient's mother that his symptoms may perhaps be due to a lingering effect from his Covid infection. Patient and mother were given clear return instructions, and patient was instructed to follow up closely with his primary care provider. Will discharge patient home with his mother at this time. - Lab Data Result diagrams: 09/16/20 20:42 09/16/20 20:42 Lab Results 09/16/20 09/16/20 09/16/20 Range/Units 20:21 20:42 20:42 WBC 7.0 (3.8-10.6) k/uL RBC 5.01 (4.30-5.90) m/uL Hgb 15.2 (13.0-17.5) gm/dL Hct 44.9 (39.0-53.0) % MCV 89.5 (80.0-100.0) fL MCH 30.3 (25.0-35.0) pg MCHC 33.8 (31.0-37.0) g/dL RDW 12.9 (11.5-15.5) % Plt Count 233 (150-450) k/uL MPV 7.2 Neutrophils % 74 % Lymphocytes % 16 % Monocytes % 4 % Eosinophils % 4 % Basophils % 1 % Neutrophils # 5.1 (1.3-7.7) k/uL Lymphocytes # 1.1 (1.0-4.8) k/uL Monocytes # 0.3 (0-1.0) k/uL Eosinophils # 0.3 (0-0.7) k/uL Basophils # 0.1 (0-0.2) k/uL PT 10.1 (9.0-12.0) sec INR 0.9 (<1.2) APTT 22.9 (22.0-30.0) sec D-Dimer <0.17 (<0.60) mg/L FEU VBG pH (7.31-7.41) VBG pCO2 (37-51) mmHg VBG HCO3 (24-28) mmol/L Sodium (137-145) mmol/L Potassium (3.5-5.1) mmol/L Chloride (98-107) mmol/L Carbon Dioxide (22-30) mmol/L Anion Gap mmol/L BUN (9-20) mg/dL Creatinine (0.66-1.25) mg/dL Est GFR (CKD-EPI)AfAm (>60 ml/min/1.73 sqM) Est GFR (CKD-EPI)NonAf (>60 ml/min/1.73 sqM) Glucose (74-99) mg/dL POC Glucose (mg/dL) 451 H (75-99) mg/dL POC Glu Application Specialist ID Tatiana, Karine Calcium (8.4-10.2) mg/dL Total Bilirubin (0.2-1.3) mg/dL AST (17-59) U/L ALT (4-49) U/L Alkaline Phosphatase (38-126) U/L Troponin I (0.000-0.034) ng/mL NT-Pro-B Natriuret Pep pg/mL Total Protein (6.3-8.2) g/dL Albumin (3.5-5.0) g/dL Urine Color Urine Appearance (Clear) Urine pH (5.0-8.0) Ur Specific [place] (1.001-1.035) Urine Protein (Negative) Urine Glucose (UA) (Negative) Urine Ketones (Negative) Urine Blood (Negative) Urine Nitrite (Negative) Urine Bilirubin (Negative) Urine Urobilinogen (<2.0) mg/dL Ur Leukocyte Esterase (Negative) Acetone, Qual (Negative) 09/16/20 09/16/20 09/16/20 Range/Units 20:42 20:42 20:42 WBC (3.8-10.6) k/uL RBC (4.30-5.90) m/uL Hgb (13.0-17.5) gm/dL Hct (39.0-53.0) % MCV (80.0-100.0) fL MCH (25.0-35.0) pg MCHC (31.0-37.0) g/dL RDW (11.5-15.5) % Plt Count (150-450) k/uL MPV Neutrophils % % Lymphocytes % % Monocytes % % Eosinophils % % Basophils % % Neutrophils # (1.3-7.7) k/uL Lymphocytes # (1.0-4.8) k/uL Monocytes # (0-1.0) k/uL Eosinophils # (0-0.7) k/uL Basophils # (0-0.2) k/uL PT (9.0-12.0) sec INR (<1.2) APTT (22.0-30.0) sec D-Dimer (<0.60) mg/L FEU VBG pH (7.31-7.41) VBG pCO2 (37-51) mmHg VBG HCO3 (24-28) mmol/L Sodium 131 L (137-145) mmol/L Potassium 4.6 (3.5-5.1) mmol/L Chloride 95 L (98-107) mmol/L Carbon Dioxide 24 (22-30) mmol/L Anion Gap 12 mmol/L BUN 12 (9-20) mg/dL Creatinine 0.77 (0.66-1.25) mg/dL Est GFR (CKD-EPI)AfAm >90 (>60 ml/min/1.73 sqM) Est GFR (CKD-EPI)NonAf >90 (>60 ml/min/1.73 sqM) Glucose 532 H* (74-99) mg/dL POC Glucose (mg/dL) (75-99) mg/dL POC Glu Application Specialist ID Calcium 9.3 (8.4-10.2) mg/dL Total Bilirubin 0.9 (0.2-1.3) mg/dL AST 27 (17-59) U/L ALT 24 (4-49) U/L Alkaline Phosphatase 115 (38-126) U/L Troponin I <0.012 (0.000-0.034) ng/mL NT-Pro-B Natriuret Pep 16 pg/mL Total Protein 6.6 (6.3-8.2) g/dL Albumin 4.3 (3.5-5.0) g/dL Urine Color Urine Appearance (Clear) Urine pH (5.0-8.0) Ur Specific [place] (1.001-1.035) Urine Protein (Negative) Urine Glucose (UA) (Negative) Urine Ketones (Negative) Urine Blood (Negative) Urine Nitrite (Negative) Urine Bilirubin (Negative) Urine Urobilinogen (<2.0) mg/dL Ur Leukocyte Esterase (Negative) Acetone, Qual Negative (Negative) 09/16/20 09/16/20 09/17/20 Range/Units 20:42 20:42 00:03 WBC (3.8-10.6) k/uL RBC (4.30-5.90) m/uL Hgb (13.0-17.5) gm/dL Hct (39.0-53.0) % MCV (80.0-100.0) fL MCH (25.0-35.0) pg MCHC (31.0-37.0) g/dL RDW (11.5-15.5) % Plt Count (150-450) k/uL MPV Neutrophils % % Lymphocytes % % Monocytes % % Eosinophils % % Basophils % % Neutrophils # (1.3-7.7) k/uL Lymphocytes # (1.0-4.8) k/uL Monocytes # (0-1.0) k/uL Eosinophils # (0-0.7) k/uL Basophils # (0-0.2) k/uL PT (9.0-12.0) sec INR (<1.2) APTT (22.0-30.0) sec D-Dimer (<0.60) mg/L FEU VBG pH 7.45 H (7.31-7.41) VBG pCO2 35 L (37-51) mmHg VBG HCO3 24 (24-28) mmol/L Sodium (137-145) mmol/L Potassium (3.5-5.1) mmol/L Chloride (98-107) mmol/L Carbon Dioxide (22-30) mmol/L Anion Gap mmol/L BUN (9-20) mg/dL Creatinine (0.66-1.25) mg/dL Est GFR (CKD-EPI)AfAm (>60 ml/min/1.73 sqM) Est GFR (CKD-EPI)NonAf (>60 ml/min/1.73 sqM) Glucose (74-99) mg/dL POC Glucose (mg/dL) 251 H (75-99) mg/dL POC Glu Application Specialist ID Callewaert, Nuria Calcium (8.4-10.2) mg/dL Total Bilirubin (0.2-1.3) mg/dL AST (17-59) U/L ALT (4-49) U/L Alkaline Phosphatase (38-126) U/L Troponin I (0.000-0.034) ng/mL NT-Pro-B Natriuret Pep pg/mL Total Protein (6.3-8.2) g/dL Albumin (3.5-5.0) g/dL Urine Color Light Yellow Urine Appearance Clear (Clear) Urine pH 6.5 (5.0-8.0) Ur Specific [place] 1.027 (1.001-1.035) Urine Protein Negative (Negative) Urine Glucose (UA) 4+ H (Negative) Urine Ketones Trace H (Negative) Urine Blood Negative (Negative) Urine Nitrite Negative (Negative) Urine Bilirubin Negative (Negative) Urine Urobilinogen <2.0 (<2.0) mg/dL Ur Leukocyte Esterase Negative (Negative) Acetone, Qual (Negative) - Radiology Data Radiology results: report reviewed (Chest x-ray: Normal chest, no change) Disposition Clinical Impression: Hyperglycemia, Palpitations, Weakness, Dyspnea Disposition: HOME SELF-CARE Condition: Stable Instructions (If sedation given, give patient instructions): Heart Palpitations (ED), Weakness (ED), Dyspnea (ED), Diabetic Hyperglycemia (ED) Additional Instructions: Return to the ER immediately should you develop increased shortness of breath, fainting, any significant pain, a fever, vomiting, or new or worsening symptoms. Follow up closely with your primary care provider. Is patient prescribed a controlled substance at d/c from ED?: No Referrals: Brett Miller MD [Primary Care Provider] - 1-2 days Time of Disposition: 00:13
[2020-09-16] MEDS ORDERED: SODIUM CHLORIDE 0.9% 1,000 ML IV STA (20:37)
--- NOTE | 2020-09-16 21:14 | XR ---
EXAMINATION TYPE: XR chest 2V DATE OF EXAM: 09/16/2020 COMPARISON: 08/10/2020 HISTORY: Difficulty breathing TECHNIQUE: 2 views FINDINGS: Heart and mediastinum are normal. Lungs are clear. Diaphragm is normal. Bony thorax appears normal. IMPRESSION: Normal chest. No change.
[2020-09-16 21:26] LABS: Appearance,Urine Clear (Clear); Bilirubin,Urine Negative (Negative); Blood,Urine Negative (Negative); Color,Urine Light Yellow; Glucose,Urine (UA) 4+ (Negative); Ketones,Urine Trace (Negative); Leukocyte Esterase,Urine Negative (Negative); Nitrite,Urine Negative (Negative); PH, Urine 6.5 (5.0-8.0); Protein,Urine Negative (Negative); Specific Gravity,Urine 1.027 (1.001-1.035); Urobilinogen,Urine <2.0 mg/dL (<2.0)
[2020-09-16 21:32] LABS: Basophils # (A) 0.1 k/uL (0-0.2); Basophils % (A) 1 %; Eosinophils # (A) 0.3 k/uL (0-0.7); Eosinophils % (A) 4 %; HCT 44.9 % (39.0-53.0); HGB 15.2 gm/dL (13.0-17.5); Lymphocytes # (A) 1.1 k/uL (1.0-4.8); Lymphocytes % (A) 16 %; MCH 30.3 pg (25.0-35.0); MCHC 33.8 g/dL (31.0-37.0); MCV 89.5 fL (80.0-100.0); Mean Platelet Volume 7.2; Monocytes # (A) 0.3 k/uL (0-1.0); Monocytes % (A) 4 %; Neutrophils # (A) 5.1 k/uL (1.3-7.7); Neutrophils % (A) 74 %; Platelet Count 233 k/uL (150-450); RBC 5.01 m/uL (4.30-5.90); RDW 12.9 % (11.5-15.5)
[2020-09-16 21:45] LABS: INR 0.9 (<1.2); Partial Thromboplastin Time 22.9 sec (22.0-30.0); Prothrombin Time 10.1 sec (9.0-12.0)
[2020-09-16 21:49] LABS: VBG PH 7.45 (7.31-7.41)
[2020-09-16 21:50] LABS: ALT 24 U/L (4-49); AST 27 U/L (17-59); African American GFR (CKD) >90 (>60 ml/min/1.73 sqM); Albumin 4.3 g/dL (3.5-5.0); Alkaline Phosphatase 115 U/L (38-126); Anion Gap 12 mmol/L; Blood Urea Nitrogen 12 mg/dL (9-20); Calcium 9.3 mg/dL (8.4-10.2); Carbon Dioxide 24 mmol/L (22-30); Chloride 95 mmol/L (98-107); Non-African American GFR(CKD) >90 (>60 ml/min/1.73 sqM); Potassium 4.6 mmol/L (3.5-5.1); Sodium 131 mmol/L (137-145); Total Bilirubin 0.9 mg/dL (0.2-1.3); Total Protein 6.6 g/dL (6.3-8.2)
[2020-09-16 22:00] LABS: Glucose 532 mg/dL (74-99)
[2020-09-16] MEDS ORDERED: SODIUM CHLORIDE 0.9% 1,000 ML IV ONE (22:11)
[2020-09-16] MEDS ORDERED: INSULIN REGULAR 100 UNIT/ML VIAL (IV) SQ ONE (22:11)
[2020-09-16 22:26] VITALS: BP 122/78; PULSE 70; RESP 19
[2020-09-17 00:04] LABS: Glucose,Whole Blood 251 mg/dL (75-99)
== END 2020-09-17 00:27 | disposition home or self-care (01) ==
LOC: EC 20:07
DX: E10.65 Type 1 diabetes mellitus with hyperglycemia (principal); R06.00 Dyspnea, unspecified; R00.2 Palpitations; E10.43 Type 1 diabetes mellitus with diabetic autonomic (poly)neuropathy; K31.84 Gastroparesis; J45.909 Unspecified asthma, uncomplicated; F12.90 Cannabis use, unspecified, uncomplicated; Z90.49 Acquired absence of other specified parts of digestive tract
CPT/HCPCS: 36415; 71046; 80053; 81003; 82009; 82803; 83880; 84484; 85025; 85379; 85610; 85730; 93005; 96360; 99284; 99285

== ENCOUNTER 2020-09-21 20:28 | Emergency (ER) | payer OTHER ==
[2020-09-21 20:45] VITALS: RESP 18; TEMP 98.3
[2020-09-21 20:47] LABS: Glucose,Whole Blood 325 mg/dL (75-99)
[2020-09-21] MEDS ORDERED: SODIUM CHLORIDE 0.9% 1,000 ML IV STA (21:54)
[2020-09-21 22:29] LABS: Basophils # (A) 0.1 k/uL (0-0.2); Basophils % (A) 1 %; Eosinophils # (A) 0.3 k/uL (0-0.7); Eosinophils % (A) 4 %; HGB 16.2 gm/dL (13.0-17.5); Lymphocytes # (A) 1.2 k/uL (1.0-4.8); Lymphocytes % (A) 19 %; MCH 30.7 pg (25.0-35.0); MCHC 35.2 g/dL (31.0-37.0); MCV 87.2 fL (80.0-100.0); Mean Platelet Volume 7.3; Monocytes # (A) 0.3 k/uL (0-1.0); Monocytes % (A) 5 %; Neutrophils # (A) 4.7 k/uL (1.3-7.7); Neutrophils % (A) 71 %; Platelet Count 274 k/uL (150-450); RBC 5.27 m/uL (4.30-5.90); RDW 12.6 % (11.5-15.5); WBC 6.6 k/uL (3.8-10.6)
[2020-09-21 22:33] LABS: Appearance,Urine Clear (Clear); Bilirubin,Urine Negative (Negative); Blood,Urine Negative (Negative); Color,Urine Yellow; Glucose,Urine (UA) 4+ (Negative); Ketones,Urine Negative (Negative); Leukocyte Esterase,Urine Negative (Negative); Nitrite,Urine Negative (Negative); Protein,Urine Negative (Negative); Specific Gravity,Urine 1.032 (1.001-1.035); Urobilinogen,Urine <2.0 mg/dL (<2.0)
[2020-09-21 22:54] LABS: ALT 45 U/L (4-49); AST 41 U/L (17-59); African American GFR (CKD) >90 (>60 ml/min/1.73 sqM); Albumin 4.8 g/dL (3.5-5.0); Alkaline Phosphatase 102 U/L (38-126); Anion Gap 12 mmol/L; Blood Urea Nitrogen 18 mg/dL (9-20); Calcium 9.8 mg/dL (8.4-10.2); Carbon Dioxide 26 mmol/L (22-30); Chloride 98 mmol/L (98-107); Glucose 301 mg/dL (74-99); Lipase 36 U/L (23-300); Non-African American GFR(CKD) >90 (>60 ml/min/1.73 sqM); Potassium 4.5 mmol/L (3.5-5.1); Sodium 136 mmol/L (137-145); Total Bilirubin 0.9 mg/dL (0.2-1.3); Total Protein 7.3 g/dL (6.3-8.2)
--- NOTE | 2020-09-22 00:05 | ED ---
Nausea/Vomiting/Diarrhea HPI - General Chief complaint: Nausea/Vomiting/Diarrhea Stated complaint: vomiting/dehydration Time Seen by Provider: 09/21/20 21:49 Source: patient Mode of arrival: ambulatory Limitations: no limitations - History of Present Illness Initial comments: Patient is a 30-year-old male, history of type 1 diabetes, presenting to the e mergency Department with complaints of nausea and vomiting since this morning. Patient also Has concerns because his urine was really dark this morning, looked orange in color. He admits to some diffuse abdominal discomfort, no specific area pain. No fever or chills. Denies any chest pain or shortness of breath. He does have history DKA and is really nervous to be in this again. Patient has no further complaints at this time. Upon arrival to the ER, his vital signs are stable. Glucose in triage was 325. - Related Data Home Medications Medication Instructions Recorded Confirmed INSULIN ASPART (NovoLOG) [NovoLOG See Protocol SQ AC-TID 07/20/20 08/03/20 (formulary)] Insulin Glargine [Lantus] 15 unit SQ HS 07/20/20 08/03/20 Previous Rx's Medication Instructions Recorded Amoxic-Pot Clav 875-125Mg 1 tab PO Q12HR 7 Days #14 tab 08/03/20 [Augmentin 875-125] Ondansetron Odt [Zofran Odt] 4 mg PO Q8HR PRN #20 tab 08/10/20 Ondansetron Odt [Zofran Odt] 4 mg PO Q8HR PRN #10 tab 09/22/20 Allergies Allergy/AdvReac Type Severity Reaction Status Date / Time No Known Allergies Allergy Verified 09/21/20 20:46 Review of Systems ROS Statement: Those systems with pertinent positive or pertinent negative responses have been documented in the HPI. ROS Other: All systems not noted in ROS Statement are negative. Past Medical History Past Medical History: Asthma, Diabetes Mellitus, GERD/Reflux Additional Past Medical History / Comment(s): DM type I, gastroparesis, History of Any Multi-Drug Resistant Organisms: None Reported Past Surgical History: Cholecystectomy Past Anesthesia/Blood Transfusion Reactions: Postoperative Nausea & Vomiting (PONV) Additional Past Anesthesia/Blood Transfusion Reaction / Comment(s): Pt has never received blood. Past Psychological History: No Psychological Hx Reported Smoking Status: Vaper Past Alcohol Use History: None Reported Past Drug Use History: Marijuana - Past Family History Father Family Medical History: Diabetes Mellitus, Hypertension Additional Family Medical History / Comment(s): type II diabetes. Mother Family Medical History: COPD Brother(s) Family Medical History: Diabetes Mellitus Additional Family Medical History / Comment(s): IDDM type I Sister(s) Family Medical History: No Reported History General Exam - General Exam Comments Initial Comments: GENERAL: Patient is well-developed and well-nourished. Patient is nontoxic and in no acute distress. HEAD: Atraumatic, normocephalic. EYES: Pupils equal round and reactive to light, extraocular movements intact, sclera anicteric, conjunctiva are normal. Eyelids were unremarkable. ENT: TMs normal, nares patent, oropharynx clear without exudates. Moist mucous membranes. NECK: Normal range of motion, supple without lymphadenopathy or JVD. LUNGS: Unlabored respirations. Breath sounds clear to auscultation bilaterally and equal. No wheezes rales or rhonchi. HEART: Regular rate and rhythm without murmurs, rubs or gallops. ABDOMEN: Soft, nontender, normoactive bowel sounds. No guarding, no rebound. No masses appreciated. : Deferred MUSCULOSKELETAL: Normal extremities with adequate strength and normal range of motion, no pitting or edema. No clubbing or cyanosis. NEUROLOGICAL: Patient is alert and oriented x 3. Motor and sensory are also intact. Cranial nerves II through XII grossly intact. Symmetrical smile. Normal speech, normal gait. PSYCH: Normal mood, normal affect. SKIN: Warm, Dry, normal turgor, no rashes or lesions noted. Limitations: no limitations Course Vital Signs 09/21/20 09/21/20 09/22/20 20:38 22:31 00:16 Temperature 98.3 F Pulse Rate 100 70 73 Respiratory 18 18 18 Rate Blood Pressure 132/79 111/72 111/71 O2 Sat by Pulse 98 100 99 Oximetry Medical Decision Making - Medical Decision Making Patient is a 30-year-old male, history of type 1 diabetes presenting with nausea and vomiting since this morning, concern for dehydration. His vital signs are stable. Labs are unremarkable, glucose is elevated at 301, urine has 4+ glucose otherwise normal, acetone negative. Patient received 1 L fluids reports improvement of symptoms. Recommending continue to monitor his glucose levels, administer proper amount of insulin. He states he is trying to get her insulin pump. Patient is stable for discharge. Patient is in agreement with this plan of care. Return parameters were discussed with the patient and they verbalized understanding. Case discussed with Dr. Hernandez. - Lab Data Result diagrams: 09/21/20 22:17 09/21/20 22:17 Lab Results 09/21/20 09/21/20 09/21/20 Range/Units 20:45 22:17 22:17 WBC 6.6 (3.8-10.6) k/uL RBC 5.27 (4.30-5.90) m/uL Hgb 16.2 (13.0-17.5) gm/dL Hct 46.0 (39.0-53.0) % MCV 87.2 (80.0-100.0) fL MCH 30.7 (25.0-35.0) pg MCHC 35.2 (31.0-37.0) g/dL RDW 12.6 (11.5-15.5) % Plt Count 274 (150-450) k/uL MPV 7.3 Neutrophils % 71 % Lymphocytes % 19 % Monocytes % 5 % Eosinophils % 4 % Basophils % 1 % Neutrophils # 4.7 (1.3-7.7) k/uL Lymphocytes # 1.2 (1.0-4.8) k/uL Monocytes # 0.3 (0-1.0) k/uL Eosinophils # 0.3 (0-0.7) k/uL Basophils # 0.1 (0-0.2) k/uL Sodium (137-145) mmol/L Potassium (3.5-5.1) mmol/L Chloride (98-107) mmol/L Carbon Dioxide (22-30) mmol/L Anion Gap mmol/L BUN (9-20) mg/dL Creatinine (0.66-1.25) mg/dL Est GFR (CKD-EPI)AfAm (>60 ml/min/1.73 sqM) Est GFR (CKD-EPI)NonAf (>60 ml/min/1.73 sqM) Glucose (74-99) mg/dL POC Glucose (mg/dL) 325 H (75-99) mg/dL POC Glu Cut Off Machine Helper ID Donovan, Mariam Calcium (8.4-10.2) mg/dL Total Bilirubin (0.2-1.3) mg/dL AST (17-59) U/L ALT (4-49) U/L Alkaline Phosphatase (38-126) U/L Total Protein (6.3-8.2) g/dL Albumin (3.5-5.0) g/dL Lipase (23-300) U/L Urine Color Yellow Urine Appearance Clear (Clear) Urine pH 6.0 (5.0-8.0) Ur Specific [place] 1.032 (1.001-1.035) Urine Protein Negative (Negative) Urine Glucose (UA) 4+ H (Negative) Urine Ketones Negative (Negative) Urine Blood Negative (Negative) Urine Nitrite Negative (Negative) Urine Bilirubin Negative (Negative) Urine Urobilinogen <2.0 (<2.0) mg/dL Ur Leukocyte Esterase Negative (Negative) Acetone, Qual (Negative) 09/21/20 Range/Units 22:17 WBC (3.8-10.6) k/uL RBC (4.30-5.90) m/uL Hgb (13.0-17.5) gm/dL Hct (39.0-53.0) % MCV (80.0-100.0) fL MCH (25.0-35.0) pg MCHC (31.0-37.0) g/dL RDW (11.5-15.5) % Plt Count (150-450) k/uL MPV Neutrophils % % Lymphocytes % % Monocytes % % Eosinophils % % Basophils % % Neutrophils # (1.3-7.7) k/uL Lymphocytes # (1.0-4.8) k/uL Monocytes # (0-1.0) k/uL Eosinophils # (0-0.7) k/uL Basophils # (0-0.2) k/uL Sodium 136 L (137-145) mmol/L Potassium 4.5 (3.5-5.1) mmol/L Chloride 98 (98-107) mmol/L Carbon Dioxide 26 (22-30) mmol/L Anion Gap 12 mmol/L BUN 18 (9-20) mg/dL Creatinine 0.87 (0.66-1.25) mg/dL Est GFR (CKD-EPI)AfAm >90 (>60 ml/min/1.73 sqM) Est GFR (CKD-EPI)NonAf >90 (>60 ml/min/1.73 sqM) Glucose 301 H (74-99) mg/dL POC Glucose (mg/dL) (75-99) mg/dL POC Glu Cut Off Machine Helper ID Calcium 9.8 (8.4-10.2) mg/dL Total Bilirubin 0.9 (0.2-1.3) mg/dL AST 41 (17-59) U/L ALT 45 (4-49) U/L Alkaline Phosphatase 102 (38-126) U/L Total Protein 7.3 (6.3-8.2) g/dL Albumin 4.8 (3.5-5.0) g/dL Lipase 36 (23-300) U/L Urine Color Urine Appearance (Clear) Urine pH (5.0-8.0) Ur Specific [place] (1.001-1.035) Urine Protein (Negative) Urine Glucose (UA) (Negative) Urine Ketones (Negative) Urine Blood (Negative) Urine Nitrite (Negative) Urine Bilirubin (Negative) Urine Urobilinogen (<2.0) mg/dL Ur Leukocyte Esterase (Negative) Acetone, Qual Negative (Negative) Disposition Clinical Impression: Dehydration, Nausea & vomiting, Diabetes mellitus type 1 Disposition: HOME SELF-CARE Condition: Stable Instructions (If sedation given, give patient instructions): Dehydration (ED) Additional Instructions: Please return to the Emergency Department if symptoms worsen or any other concerns. Continue to increase fluid intake. Continue to monitor your sugar levels. Follow-up with your family doctor. Prescriptions: Ondansetron Odt [Zofran Odt] 4 mg PO Q8HR PRN #10 tab PRN Reason: Nausea Is patient prescribed a controlled substance at d/c from ED?: No Referrals: Brett Miller MD [Primary Care Provider] - 1-2 days
[2020-09-22 00:21] VITALS: BP 111/71; PULSE 73
== END 2020-09-22 00:20 | disposition home or self-care (01) ==
LOC: EC 20:28
DX: E86.0 Dehydration (principal); R10.9 Unspecified abdominal pain; R11.2 Nausea with vomiting, unspecified; R19.7 Diarrhea, unspecified; K21.9 Gastro-esophageal reflux disease without esophagitis; E10.9 Type 1 diabetes mellitus without complications; F17.290 Nicotine dependence, other tobacco product, uncomplicated; J45.909 Unspecified asthma, uncomplicated; Z79.899 Other long term (current) drug therapy; Z90.49 Acquired absence of other specified parts of digestive tract
CPT/HCPCS: 36415; 80053; 81003; 82009; 83690; 85025; 96360; 99284

== ENCOUNTER 2020-09-24 20:05 | Emergency (ER) | payer OTHER ==
[2020-09-24 20:14] VITALS: TEMP 98
[2020-09-24 20:18] LABS: Glucose,Whole Blood 291 mg/dL (75-99)
[2020-09-24] MEDS ORDERED: SODIUM CHLORIDE 0.9% 1,000 ML IV STA (20:31)
[2020-09-24] MEDS ORDERED: ONDANSETRON 4 MG/2 ML VIAL IVP STA (20:31)
[2020-09-24 20:44] VITALS: RESP 18
--- NOTE | 2020-09-24 21:04 | ED ---
Recheck HPI - General Chief Complaint: Recheck/Abnormal Lab/Rx Stated Complaint: hyperglycemia, dehydrated Time Seen by Provider: 09/24/20 20:19 Source: patient Mode of arrival: ambulatory Limitations: no limitations - History of Present Illness Initial Comments: Patient is a 30-year-old male with history of type 1 diabetes, presenting to the emergency Department with complaints of dehydration and elevated glucose levels. This is patient's fourth visit this month for same complaint. Patient states ever since he had Covid at the end of July he's been having a hard time controlling his sugars. Patient states he is constantly having nausea and stomach aches. Patient states last couple weeks seems to be worse. He is now waking up anxious about his sugar levels. Patient states he does have an appointment with his PCP tomorrow and his production director on Friday. The patient has been having nausea today, no vomiting. He states he's been drinking a lot of water today. He has been following his sliding scale as directed. He denies any chest pain or shortness of breath, no fever or chills. No coughing. He has no further complaints at this time. Upon arrival to the ER his vitals are stable. - Related Data Home Medications Medication Instructions Recorded Confirmed INSULIN ASPART (NovoLOG) [NovoLOG See Protocol SQ AC-TID 07/20/20 08/03/20 (formulary)] Insulin Glargine [Lantus] 15 unit SQ HS 07/20/20 08/03/20 Previous Rx's Medication Instructions Recorded Amoxic-Pot Clav 875-125Mg 1 tab PO Q12HR 7 Days #14 tab 08/03/20 [Augmentin 875-125] Ondansetron Odt [Zofran Odt] 4 mg PO Q8HR PRN #20 tab 08/10/20 Ondansetron Odt [Zofran Odt] 4 mg PO Q8HR PRN #10 tab 09/22/20 Allergies Allergy/AdvReac Type Severity Reaction Status Date / Time No Known Allergies Allergy Verified 09/24/20 20:14 Review of Systems ROS Statement: Those systems with pertinent positive or pertinent negative responses have been documented in the HPI. ROS Other: All systems not noted in ROS Statement are negative. Past Medical History Past Medical History: Asthma, Diabetes Mellitus, GERD/Reflux Additional Past Medical History / Comment(s): DM type I, gastroparesis, Covid End of Jul 2020 History of Any Multi-Drug Resistant Organisms: None Reported Past Surgical History: Cholecystectomy Past Anesthesia/Blood Transfusion Reactions: Postoperative Nausea & Vomiting (PONV) Additional Past Anesthesia/Blood Transfusion Reaction / Comment(s): Pt has never received blood. Past Psychological History: No Psychological Hx Reported Smoking Status: Vaper Past Alcohol Use History: None Reported Past Drug Use History: Marijuana - Past Family History Father Family Medical History: Diabetes Mellitus, Hypertension Additional Family Medical History / Comment(s): type II diabetes. Mother Family Medical History: COPD Brother(s) Family Medical History: Diabetes Mellitus Additional Family Medical History / Comment(s): IDDM type I Sister(s) Family Medical History: No Reported History General Exam - General Exam Comments Initial Comments: GENERAL: Patient is well-developed and well-nourished. Patient is nontoxic and in no acute distress. HEAD: Atraumatic, normocephalic. EYES: Pupils equal round and reactive to light, extraocular movements intact, sclera anicteric, conjunctiva are normal. Eyelids were unremarkable. ENT: TMs normal, nares patent, oropharynx clear without exudates. Moist mucous membranes. NECK: Normal range of motion, supple without lymphadenopathy or JVD. LUNGS: Unlabored respirations. Breath sounds clear to auscultation bilaterally and equal. No wheezes rales or rhonchi. HEART: Regular rate and rhythm without murmurs, rubs or gallops. ABDOMEN: Soft, nontender, normoactive bowel sounds. No guarding, no rebound. No masses appreciated. : Deferred MUSCULOSKELETAL: Normal extremities with adequate strength and normal range of motion, no pitting or edema. No clubbing or cyanosis. NEUROLOGICAL: Patient is alert and oriented x 3. Motor and sensory are also intact. Cranial nerves II through XII grossly intact. Symmetrical smile. Normal speech, normal gait. PSYCH: Normal mood, normal affect. SKIN: Warm, Dry, normal turgor, no rashes or lesions noted. Limitations: no limitations Course Vital Signs 09/24/20 09/24/20 09/24/20 20:10 20:43 21:35 Temperature 98.0 F Pulse Rate 99 89 89 Respiratory 20 18 18 Rate Blood Pressure 158/76 125/81 120/68 O2 Sat by Pulse 100 95 98 Oximetry Medical Decision Making - Medical Decision Making Patient is a 30-year-old male with history of diabetes, presenting for elevated glucose levels dehydration. This is patient's fourth visit this month for similar complaint. Having hard time controlling his sugars. His vital signs are stable. Glucose on arrival is 291. Labs are unremarkable, urine shows 4+ glucose otherwise normal, acetone is negative. Patient received a liter of fluids, Zofran does report improvement of symptoms. Glucose recheck is 275. I discussed with patient that he follow up with his production director. He does have an appointment with his PCP tomorrow and his production director on Friday. Patient is stable for discharge. Patient is in agreement with this plan of care. Return parameters were discussed with the patient and they verbalized understanding. Case discussed with Dr. Duggan. - Lab Data Result diagrams: 09/24/20 20:45 09/24/20 20:45 Lab Results 09/24/20 09/24/20 09/24/20 Range/Units 20:17 20:45 20:45 WBC 7.0 (3.8-10.6) k/uL RBC 4.78 (4.30-5.90) m/uL Hgb 14.6 (13.0-17.5) gm/dL Hct 41.6 (39.0-53.0) % MCV 87.1 (80.0-100.0) fL MCH 30.5 (25.0-35.0) pg MCHC 35.1 (31.0-37.0) g/dL RDW 12.5 (11.5-15.5) % Plt Count 259 (150-450) k/uL MPV 7.6 Neutrophils % 71 % Lymphocytes % 20 % Monocytes % 4 % Eosinophils % 3 % Basophils % 1 % Neutrophils # 5.0 (1.3-7.7) k/uL Lymphocytes # 1.4 (1.0-4.8) k/uL Monocytes # 0.3 (0-1.0) k/uL Eosinophils # 0.2 (0-0.7) k/uL Basophils # 0.1 (0-0.2) k/uL Sodium (137-145) mmol/L Potassium (3.5-5.1) mmol/L Chloride (98-107) mmol/L Carbon Dioxide (22-30) mmol/L Anion Gap mmol/L BUN (9-20) mg/dL Creatinine (0.66-1.25) mg/dL Est GFR (CKD-EPI)AfAm (>60 ml/min/1.73 sqM) Est GFR (CKD-EPI)NonAf (>60 ml/min/1.73 sqM) Glucose (74-99) mg/dL POC Glucose (mg/dL) 291 H (75-99) mg/dL POC Glu Auto Repair Technician ID Candido Lara Plasma Lactic Acid Elio (0.7-2.0) mmol/L Calcium (8.4-10.2) mg/dL Total Bilirubin (0.2-1.3) mg/dL AST (17-59) U/L ALT (4-49) U/L Alkaline Phosphatase (38-126) U/L Total Protein (6.3-8.2) g/dL Albumin (3.5-5.0) g/dL TSH (0.465-4.680) mIU/L Urine Color Light Yellow Urine Appearance Clear (Clear) Urine pH 6.5 (5.0-8.0) Ur Specific [place] 1.021 (1.001-1.035) Urine Protein Negative (Negative) Urine Glucose (UA) 4+ H (Negative) Urine Ketones Negative (Negative) Urine Blood Negative (Negative) Urine Nitrite Negative (Negative) Urine Bilirubin Negative (Negative) Urine Urobilinogen <2.0 (<2.0) mg/dL Ur Leukocyte Esterase Negative (Negative) Acetone, Qual (Negative) 09/24/20 09/24/20 09/24/20 Range/Units 20:45 20:45 21:58 WBC (3.8-10.6) k/uL RBC (4.30-5.90) m/uL Hgb (13.0-17.5) gm/dL Hct (39.0-53.0) % MCV (80.0-100.0) fL MCH (25.0-35.0) pg MCHC (31.0-37.0) g/dL RDW (11.5-15.5) % Plt Count (150-450) k/uL MPV Neutrophils % % Lymphocytes % % Monocytes % % Eosinophils % % Basophils % % Neutrophils # (1.3-7.7) k/uL Lymphocytes # (1.0-4.8) k/uL Monocytes # (0-1.0) k/uL Eosinophils # (0-0.7) k/uL Basophils # (0-0.2) k/uL Sodium 134 L (137-145) mmol/L Potassium 4.5 (3.5-5.1) mmol/L Chloride 98 (98-107) mmol/L Carbon Dioxide 29 (22-30) mmol/L Anion Gap 7 mmol/L BUN 12 (9-20) mg/dL Creatinine 0.91 (0.66-1.25) mg/dL Est GFR (CKD-EPI)AfAm >90 (>60 ml/min/1.73 sqM) Est GFR (CKD-EPI)NonAf >90 (>60 ml/min/1.73 sqM) Glucose 299 H (74-99) mg/dL POC Glucose (mg/dL) 275 H (75-99) mg/dL POC Glu Auto Repair Technician ID Nuria Brown Plasma Lactic Acid Elio 1.4 (0.7-2.0) mmol/L Calcium 9.5 (8.4-10.2) mg/dL Total Bilirubin 0.9 (0.2-1.3) mg/dL AST 30 (17-59) U/L ALT 33 (4-49) U/L Alkaline Phosphatase 106 (38-126) U/L Total Protein 6.8 (6.3-8.2) g/dL Albumin 4.6 (3.5-5.0) g/dL TSH 1.020 (0.465-4.680) mIU/L Urine Color Urine Appearance (Clear) Urine pH (5.0-8.0) Ur Specific [place] (1.001-1.035) Urine Protein (Negative) Urine Glucose (UA) (Negative) Urine Ketones (Negative) Urine Blood (Negative) Urine Nitrite (Negative) Urine Bilirubin (Negative) Urine Urobilinogen (<2.0) mg/dL Ur Leukocyte Esterase (Negative) Acetone, Qual Negative (Negative) Disposition Clinical Impression: Hyperglycemia, Diabetes mellitus type 1 Disposition: HOME SELF-CARE Condition: Stable Instructions (If sedation given, give patient instructions): Diabetic Hyperg lycemia (ED) Additional Instructions: Please return to the Emergency Department if symptoms worsen or any other concerns. Continue to monitor your glucose levels. Follow-up with primary care physician and production director as discussed. Is patient prescribed a controlled substance at d/c from ED?: No Referrals: Brett Miller MD [Primary Care Provider] - 1-2 days Time of Disposition: 22:15
[2020-09-24 21:08] LABS: Appearance,Urine Clear (Clear); Bilirubin,Urine Negative (Negative); Blood,Urine Negative (Negative); Color,Urine Light Yellow; Glucose,Urine (UA) 4+ (Negative); Ketones,Urine Negative (Negative); Leukocyte Esterase,Urine Negative (Negative); Nitrite,Urine Negative (Negative); PH, Urine 6.5 (5.0-8.0); Protein,Urine Negative (Negative); Specific Gravity,Urine 1.021 (1.001-1.035); Urobilinogen,Urine <2.0 mg/dL (<2.0)
[2020-09-24 21:19] LABS: ALT 33 U/L (4-49); AST 30 U/L (17-59); African American GFR (CKD) >90 (>60 ml/min/1.73 sqM); Albumin 4.6 g/dL (3.5-5.0); Alkaline Phosphatase 106 U/L (38-126); Anion Gap 7 mmol/L; Blood Urea Nitrogen 12 mg/dL (9-20); Calcium 9.5 mg/dL (8.4-10.2); Carbon Dioxide 29 mmol/L (22-30); Chloride 98 mmol/L (98-107); Glucose 299 mg/dL (74-99); Non-African American GFR(CKD) >90 (>60 ml/min/1.73 sqM); Potassium 4.5 mmol/L (3.5-5.1); Sodium 134 mmol/L (137-145); Total Bilirubin 0.9 mg/dL (0.2-1.3); Total Protein 6.8 g/dL (6.3-8.2)
[2020-09-24 21:40] LABS: Basophils # (A) 0.1 k/uL (0-0.2); Basophils % (A) 1 %; Eosinophils # (A) 0.2 k/uL (0-0.7); Eosinophils % (A) 3 %; HCT 41.6 % (39.0-53.0); HGB 14.6 gm/dL (13.0-17.5); Lymphocytes # (A) 1.4 k/uL (1.0-4.8); Lymphocytes % (A) 20 %; MCH 30.5 pg (25.0-35.0); MCHC 35.1 g/dL (31.0-37.0); MCV 87.1 fL (80.0-100.0); Mean Platelet Volume 7.6; Monocytes # (A) 0.3 k/uL (0-1.0); Monocytes % (A) 4 %; Neutrophils % (A) 71 %; Platelet Count 259 k/uL (150-450); RBC 4.78 m/uL (4.30-5.90); RDW 12.5 % (11.5-15.5)
[2020-09-24 22:00] LABS: Glucose,Whole Blood 275 mg/dL (75-99)
[2020-09-24 22:31] VITALS: BP 132/79; PULSE 73
== END 2020-09-24 22:29 | disposition home or self-care (01) ==
LOC: EC 20:05
DX: E10.65 Type 1 diabetes mellitus with hyperglycemia (principal); E86.0 Dehydration; F17.290 Nicotine dependence, other tobacco product, uncomplicated; Z79.4 Long term (current) use of insulin
CPT/HCPCS: 36415; 80053; 84443; 82009; 83605; 85025; 81003; 99284; 96374; 96361 ×2; J2405

== ENCOUNTER 2020-10-05 00:28 | Emergency (ER) | payer OTHER ==
[2020-10-05] MEDS ORDERED: SODIUM CHLORIDE 0.9% 1,000 ML IV ONE ×2 (00:43→02:00)
--- NOTE | 2020-10-05 01:09 | ED ---
General Adult HPI - General Chief complaint: Recheck/Abnormal Lab/Rx Stated complaint: Weakness Time Seen by Provider: 10/05/20 00:38 Source: patient Mode of arrival: wheelchair Limitations: no limitations - History of Present Illness Initial comments: This patient is 30-year-old man who presents with complaint that he is just not feeling right. Patient states he thinks he may be a little dehydrated. He has noted that he has a little bit of tingling in his fingers which she has previously had with dehydration. He is feeling some generalized weakness and fatigue. Patient states his blood sugar was running a little high in the 180s but not terribly high. He spoke with his physician, regarding these symptoms and was told to have close follow-up, but states he didn't feel he states sleep tonight feeling like this. Patient notes that he had coronavirus probably about 5 weeks ago and wonders if this is just a sequela of it. Onset/Timin -: days(s) Severity scale (1-10): 0 Consistency: constant Improves with: none Worsens with: none Associated Symptoms: weakness, other (Fatigue) Treatments Prior to Arrival: none - Related Data Home Medications Medication Instructions Recorded Confirmed INSULIN ASPART (NovoLOG) [NovoLOG See Protocol SQ AC-TID 07/20/20 08/03/20 (formulary)] Insulin Glargine [Lantus] 15 unit SQ HS 07/20/20 08/03/20 Previous Rx's Medication Instructions Recorded Amoxic-Pot Clav 875-125Mg 1 tab PO Q12HR 7 Days #14 tab 08/03/20 [Augmentin 875-125] Ondansetron Odt [Zofran Odt] 4 mg PO Q8HR PRN #20 tab 08/10/20 Ondansetron Odt [Zofran Odt] 4 mg PO Q8HR PRN #10 tab 09/22/20 Allergies Allergy/AdvReac Type Severity Reaction Status Date / Time No Known Allergies Allergy Verified 10/05/20 00:32 Review of Systems ROS Statement: Those systems with pertinent positive or pertinent negative responses have been documented in the HPI. ROS Other: All systems not noted in ROS Statement are negative. Constitutional: Reports: weakness. Denies: fever, chills Eyes: Denies: vision change ENT: Denies: throat pain Respiratory: Denies: cough, dyspnea Cardiovascular: Denies: chest pain, palpitations, orthopnea, edema, syncope Endocrine: Reports: fatigue Gastrointestinal: Denies: abdominal pain, nausea, vomiting, diarrhea, constipation Genitourinary: Denies: dysuria, hematuria Musculoskeletal: Denies: back pain Skin: Denies: rash Neurological: Reports: paresthesias. Denies: headache, weakness, numbness Past Medical History Past Medical History: Asthma, Diabetes Mellitus, GERD/Reflux Additional Past Medical History / Comment(s): DM type I, gastroparesis, Covid End of Jul 2020 History of Any Multi-Drug Resistant Organisms: None Reported Past Surgical History: Cholecystectomy Past Anesthesia/Blood Transfusion Reactions: Postoperative Nausea & Vomiting (PONV) Additional Past Anesthesia/Blood Transfusion Reaction / Comment(s): Pt has never received blood. Past Psychological History: No Psychological Hx Reported Smoking Status: Vaper Past Alcohol Use History: None Reported Past Drug Use History: Marijuana - Past Family History Father Family Medical History: Diabetes Mellitus, Hypertension Additional Family Medical History / Comment(s): type II diabetes. Mother Family Medical History: COPD Brother(s) Family Medical History: Diabetes Mellitus Additional Family Medical History / Comment(s): IDDM type I Sister(s) Family Medical History: No Reported History General Exam Limitations: no limitations General appearance: alert, in no apparent distress Head exam: Present: atraumatic, normocephalic Eye exam: Present: normal appearance. Absent: scleral icterus, conjunctival injection ENT exam: Present: normal oropharynx Neck exam: Present: normal inspection Respiratory exam: Present: normal lung sounds bilaterally. Absent: respiratory distress, wheezes, rales, rhonchi, stridor Cardiovascular Exam: Present: regular rate, normal rhythm, normal heart sounds. Absent: systolic murmur, diastolic murmur, rubs, gallop GI/Abdominal exam: Present: soft. Absent: distended, tenderness, guarding, rebound, rigid, mass Extremities exam: Present: normal inspection, normal capillary refill. Absent: pedal edema, calf tenderness Back exam: Present: normal inspection. Absent: CVA tenderness (R), CVA tenderness (L) Neurological exam: Present: alert. Absent: motor sensory deficit Skin exam: Present: warm, dry, intact, normal color. Absent: rash Course Vital Signs 10/05/20 00:29 Temperature 98.3 F Pulse Rate 89 Respiratory 20 Rate Blood Pressure 134/81 O2 Sat by Pulse 99 Oximetry Medical Decision Making - Lab Data Result diagrams: 10/05/20 00:56 10/05/20 00:56 Lab Results 10/05/20 10/05/20 10/05/20 Range/Units 00:56 00:56 00:56 WBC 6.5 (3.8-10.6) k/uL RBC 4.81 (4.30-5.90) m/uL Hgb 14.3 (13.0-17.5) gm/dL Hct 42.7 (39.0-53.0) % MCV 88.7 (80.0-100.0) fL MCH 29.8 (25.0-35.0) pg MCHC 33.6 (31.0-37.0) g/dL RDW 13.0 (11.5-15.5) % Plt Count 263 (150-450) k/uL MPV 7.7 Neutrophils % 59 % Lymphocytes % 29 % Monocytes % 4 % Eosinophils % 6 % Basophils % 1 % Neutrophils # 3.8 (1.3-7.7) k/uL Lymphocytes # 1.9 (1.0-4.8) k/uL Monocytes # 0.3 (0-1.0) k/uL Eosinophils # 0.4 (0-0.7) k/uL Basophils # 0.1 (0-0.2) k/uL Sodium 134 L (137-145) mmol/L Potassium 4.5 (3.5-5.1) mmol/L Chloride 101 (98-107) mmol/L Carbon Dioxide 26 (22-30) mmol/L Anion Gap 7 mmol/L BUN 21 H (9-20) mg/dL Creatinine 0.75 (0.66-1.25) mg/dL Est GFR (CKD-EPI)AfAm >90 (>60 ml/min/1.73 sqM) Est GFR (CKD-EPI)NonAf >90 (>60 ml/min/1.73 sqM) Glucose 235 H (74-99) mg/dL Calcium 9.3 (8.4-10.2) mg/dL Magnesium 1.8 (1.6-2.3) mg/dL Total Bilirubin 0.5 (0.2-1.3) mg/dL AST 21 (17-59) U/L ALT 19 (4-49) U/L Alkaline Phosphatase 97 (38-126) U/L Total Protein 6.7 (6.3-8.2) g/dL Albumin 4.3 (3.5-5.0) g/dL Urine Color Yellow Urine Appearance Clear (Clear) Urine pH 6.0 (5.0-8.0) Ur Specific [place] 1.025 (1.001-1.035) Urine Protein Negative (Negative) Urine Glucose (UA) 3+ H (Negative) Urine Ketones Negative (Negative) Urine Blood Negative (Negative) Urine Nitrite Negative (Negative) Urine Bilirubin Negative (Negative) Urine Urobilinogen <2.0 (<2.0) mg/dL Ur Leukocyte Esterase Negative (Negative) Acetone, Qual Negative (Negative) Disposition Clinical Impression: Hyperglycemia, Dehydration Disposition: HOME SELF-CARE Condition: Good Instructions (If sedation given, give patient instructions): Dehydration (ED) Is patient prescribed a controlled substance at d/c from ED?: No Referrals: Brett Miller MD [Primary Care Provider] - 1-2 days
[2020-10-05 01:49] LABS: Basophils # (A) 0.1 k/uL (0-0.2); Basophils % (A) 1 %; Eosinophils # (A) 0.4 k/uL (0-0.7); Eosinophils % (A) 6 %; HCT 42.7 % (39.0-53.0); HGB 14.3 gm/dL (13.0-17.5); Lymphocytes # (A) 1.9 k/uL (1.0-4.8); Lymphocytes % (A) 29 %; MCH 29.8 pg (25.0-35.0); MCHC 33.6 g/dL (31.0-37.0); MCV 88.7 fL (80.0-100.0); Mean Platelet Volume 7.7; Monocytes # (A) 0.3 k/uL (0-1.0); Monocytes % (A) 4 %; Neutrophils # (A) 3.8 k/uL (1.3-7.7); Neutrophils % (A) 59 %; Platelet Count 263 k/uL (150-450); RBC 4.81 m/uL (4.30-5.90); WBC 6.5 k/uL (3.8-10.6)
[2020-10-05 01:51] LABS: ALT 19 U/L (4-49); AST 21 U/L (17-59); African American GFR (CKD) >90 (>60 ml/min/1.73 sqM); Albumin 4.3 g/dL (3.5-5.0); Alkaline Phosphatase 97 U/L (38-126); Anion Gap 7 mmol/L; Blood Urea Nitrogen 21 mg/dL (9-20); Calcium 9.3 mg/dL (8.4-10.2); Carbon Dioxide 26 mmol/L (22-30); Chloride 101 mmol/L (98-107); Glucose 235 mg/dL (74-99); Magnesium 1.8 mg/dL (1.6-2.3); Non-African American GFR(CKD) >90 (>60 ml/min/1.73 sqM); Potassium 4.5 mmol/L (3.5-5.1); Sodium 134 mmol/L (137-145); Total Bilirubin 0.5 mg/dL (0.2-1.3); Total Protein 6.7 g/dL (6.3-8.2)
[2020-10-05] MEDS ORDERED: INSULIN REGULAR 100 UNIT/ML VIAL SQ STA (01:59)
[2020-10-05 02:07] LABS: Appearance,Urine Clear (Clear); Bilirubin,Urine Negative (Negative); Blood,Urine Negative (Negative); Color,Urine Yellow; Glucose,Urine (UA) 3+ (Negative); Ketones,Urine Negative (Negative); Leukocyte Esterase,Urine Negative (Negative); Nitrite,Urine Negative (Negative); Protein,Urine Negative (Negative); Specific Gravity,Urine 1.025 (1.001-1.035); Urobilinogen,Urine <2.0 mg/dL (<2.0)
[2020-10-05 03:19] VITALS: BP 122/80; PULSE 82; RESP 18; TEMP 97.8
== END 2020-10-05 03:19 | disposition home or self-care (01) ==
LOC: EC 00:28
DX: E10.65 Type 1 diabetes mellitus with hyperglycemia (principal); E86.0 Dehydration; K21.9 Gastro-esophageal reflux disease without esophagitis; F12.90 Cannabis use, unspecified, uncomplicated; J45.909 Unspecified asthma, uncomplicated; F17.290 Nicotine dependence, other tobacco product, uncomplicated
CPT/HCPCS: 36415; 80053; 81003; 82009; 83735; 85025; 96360; 96361; 99284

== ENCOUNTER 2020-10-17 06:02 | Emergency (ER) | payer OTHER ==
[2020-10-17 06:14] LABS: Glucose,Whole Blood 426 mg/dL (75-99)
[2020-10-17 06:40] VITALS: RESP 18; TEMP 98.7
[2020-10-17 08:19] LABS: Basophils # (A) 0.1 k/uL (0-0.2); Basophils % (A) 2 %; Eosinophils # (A) 0.5 k/uL (0-0.7); Eosinophils % (A) 7 %; HCT 46.3 % (39.0-53.0); HGB 16.1 gm/dL (13.0-17.5); Lymphocytes # (A) 1.8 k/uL (1.0-4.8); Lymphocytes % (A) 27 %; MCHC 34.9 g/dL (31.0-37.0); MCV 88.9 fL (80.0-100.0); Mean Platelet Volume 7.5; Monocytes # (A) 0.4 k/uL (0-1.0); Monocytes % (A) 6 %; Neutrophils # (A) 3.9 k/uL (1.3-7.7); Neutrophils % (A) 58 %; Platelet Count 258 k/uL (150-450); RBC 5.21 m/uL (4.30-5.90); RDW 12.8 % (11.5-15.5); WBC 6.7 k/uL (3.8-10.6)
[2020-10-17] MEDS ORDERED: SODIUM CHLORIDE 0.9% 1,000 ML IV STA (08:22)
--- NOTE | 2020-10-17 08:22 | ED ---
General Adult HPI - General Chief complaint: Recheck/Abnormal Lab/Rx Stated complaint: Low Blood Sugar Time Seen by Provider: 10/17/20 07:23 Source: patient Mode of arrival: ambulatory Limitations: no limitations - History of Present Illness Initial comments: Dictation was produced using [employer] dictation software. please excuse any grammatical, word or spelling errors. This patient was cared for during a federal and state declared state of [facility] secondary to Covid 19 Chief Complaint: 30-year-old now with past medical history of type 1 insulin- dependent diabetes mellitus presents emergency department for abnormal blood sugars History of Present Illness: 30-year-old male he takes insulin for control of his diabetes. Patient states he takes Lantus 15 units at night. He is on a sliding scale throughout the day. Patient states his blood sugars have been in the 300s. He has been taking his insulin based on sliding scale. He states that he noted a high reading and gave himself 5 units of insulin. He noted several charisse deshawn later that he felt hypoglycemic. He started to get worried and drank a bunch of glucose containing fluids. Also his glucose was high. Patient was worried that if he went to sleep that he might not wake up. Patient has no other complaints at this time. Denies any shortness of breath, abdominal pain. Does not feel ill. The ROS documented in this emergency department record has been reviewed and confirmed by me. Those systems with pertinent positive or negative responses have been documented in the HPI. All other systems are other negative and/or noncontributory. PHYSICAL EXAM: General Impression: Alert and oriented x3, not in acute distress HEENT: Normocephalic atraumatic, extra-ocular movements intact, pupils equal and reactive to light bilaterally, mucous membranes moist. Cardiovascular: Heart regular rate and rhythm Chest: Able to complete full sentences, no retractions, no tachypnea Abdomen: abdomen soft, non-tender, non-distended, no organomegaly Musculoskeletal: Pulses present and equal in all extremities, no peripheral edema Motor: no focal deficits noted Neurological: CN II-XII grossly intact, no focal motor or sensory deficits noted Skin: Intact with no visualized rashes Psych: Normal affect and mood ED course: 30-year-old male presents to the emergency department for glucose derangement. He is an insulin-dependent type 1 diabetic. Signs upon arrival s hows heart rate of 109, worse vital signs within acceptable limits. Physical examination is benign. Initial blood glucose is 426. Laboratory evaluation obtained no acidosis. Clinical presentation consistent with hyperglycemia. Patient was given intravenous fluids and 2 boluses of 10 units of IV insulin. Blood sugars were corrected. Patient reevaluated at bedside at 12 PM stable medical condition. Patient be discharged. To resume his usual diabetes medication regimen. - Related Data Home Medications Medication Instructions Recorded Confirmed INSULIN ASPART (NovoLOG) [NovoLOG See Protocol SQ AC-TID 07/20/20 10/17/20 (formulary)] Insulin Glargine [Lantus] 18 unit SQ HS 07/20/20 10/17/20 Fluticasone Propionate [Flovent 1 puff INHALATION RT-BID 10/17/20 10/17/20 Hfa 110 mcg] Previous Rx's Medication Instructions Recorded Ondansetron Odt [Zofran Odt] 4 mg PO Q8HR PRN #10 tab 09/22/20 Allergies Allergy/AdvReac Type Severity Reaction Status Date / Time No Known Allergies Allergy Verified 10/17/20 08:52 Review of Systems ROS Statement: Those systems with pertinent positive or pertinent negative responses have been documented in the HPI. ROS Other: All systems not noted in ROS Statement are negative. Past Medical History Past Medical History: Asthma, Diabetes Mellitus, GERD/Reflux Additional Past Medical History / Comment(s): DM type I, gastroparesis, Covid End of Jul 2020 History of Any Multi-Drug Resistant Organisms: None Reported Past Surgical History: Cholecystectomy Past Anesthesia/Blood Transfusion Reactions: Postoperative Nausea & Vomiting (PONV) Additional Past Anesthesia/Blood Transfusion Reaction / Comment(s): Pt has never received blood. Past Psychological History: No Psychological Hx Reported Smoking Status: Vaper Past Alcohol Use History: None Reported Past Drug Use History: Marijuana - Past Family History Father Family Medical History: Diabetes Mellitus, Hypertension Additional Family Medical History / Comment(s): type II diabetes. Mother Family Medical History: COPD Brother(s) Family Medical History: Diabetes Mellitus Additional Family Medical History / Comment(s): IDDM type I Sister(s) Family Medical History: No Reported History General Exam Limitations: no limitations Course Vital Signs 10/17/20 06:09 Temperature 98.7 F Pulse Rate 109 H Respiratory 18 Rate Blood Pressure 138/84 O2 Sat by Pulse 100 Oximetry Medical Decision Making - Lab Data Result diagrams: 10/17/20 07:48 10/17/20 07:48 Lab Results 10/17/20 10/17/20 10/17/20 Range/Units 06:13 07:48 07:48 WBC 6.7 (3.8-10.6) k/uL RBC 5.21 (4.30-5.90) m/uL Hgb 16.1 (13.0-17.5) gm/dL Hct 46.3 (39.0-53.0) % MCV 88.9 (80.0-100.0) fL MCH 31.0 (25.0-35.0) pg MCHC 34.9 (31.0-37.0) g/dL RDW 12.8 (11.5-15.5) % Plt Count 258 (150-450) k/uL MPV 7.5 Neutrophils % 58 % Lymphocytes % 27 % Monocytes % 6 % Eosinophils % 7 % Basophils % 2 % Neutrophils # 3.9 (1.3-7.7) k/uL Lymphocytes # 1.8 (1.0-4.8) k/uL Monocytes # 0.4 (0-1.0) k/uL Eosinophils # 0.5 (0-0.7) k/uL Basophils # 0.1 (0-0.2) k/uL Sodium 132 L (137-145) mmol/L Potassium 5.0 (3.5-5.1) mmol/L Chloride 90 L (98-107) mmol/L Carbon Dioxide 32 H (22-30) mmol/L Anion Gap 10 mmol/L BUN 25 H (9-20) mg/dL Creatinine 0.88 (0.66-1.25) mg/dL Est GFR (CKD-EPI)AfAm >90 (>60 ml/min/1.73 sqM) Est GFR (CKD-EPI)NonAf >90 (>60 ml/min/1.73 sqM) Glucose 520 H* (74-99) mg/dL POC Glucose (mg/dL) 426 H (75-99) mg/dL POC Glu Assistant Professor Of Chemistry ID Breanna, Lissa Calcium 10.0 (8.4-10.2) mg/dL 10/17/20 10/17/20 10/17/20 Range/Units 09:04 10:25 11:54 WBC (3.8-10.6) k/uL RBC (4.30-5.90) m/uL Hgb (13.0-17.5) gm/dL Hct (39.0-53.0) % MCV (80.0-100.0) fL MCH (25.0-35.0) pg MCHC (31.0-37.0) g/dL RDW (11.5-15.5) % Plt Count (150-450) k/uL MPV Neutrophils % % Lymphocytes % % Monocytes % % Eosinophils % % Basophils % % Neutrophils # (1.3-7.7) k/uL Lymphocytes # (1.0-4.8) k/uL Monocytes # (0-1.0) k/uL Eosinophils # (0-0.7) k/uL Basophils # (0-0.2) k/uL Sodium (137-145) mmol/L Potassium (3.5-5.1) mmol/L Chloride (98-107) mmol/L Carbon Dioxide (22-30) mmol/L Anion Gap mmol/L BUN (9-20) mg/dL Creatinine (0.66-1.25) mg/dL Est GFR (CKD-EPI)AfAm (>60 ml/min/1.73 sqM) Est GFR (CKD-EPI)NonAf (>60 ml/min/1.73 sqM) Glucose (74-99) mg/dL POC Glucose (mg/dL) 475 H 408 H 140 H (75-99) mg/dL POC Glu Assistant Professor Of Chemistry Claudia Ramos Kristi Thomas, Shelly Calcium (8.4-10.2) mg/dL Disposition Clinical Impression: Hyperglycemia Disposition: HOME SELF-CARE Condition: Good Instructions (If sedation given, give patient instructions): Diabetic Hyperglycemia (ED) Is patient prescribed a controlled substance at d/c from ED?: No Referrals: Brett iMller MD [Primary Care Provider] - 1-2 days Time of Disposition: 12:05
[2020-10-17 08:35] LABS: African American GFR (CKD) >90 (>60 ml/min/1.73 sqM); Anion Gap 10 mmol/L; Blood Urea Nitrogen 25 mg/dL (9-20); Carbon Dioxide 32 mmol/L (22-30); Chloride 90 mmol/L (98-107); Non-African American GFR(CKD) >90 (>60 ml/min/1.73 sqM); Sodium 132 mmol/L (137-145)
[2020-10-17 08:57] LABS: Glucose 520 mg/dL (74-99)
[2020-10-17 09:05] LABS: Glucose,Whole Blood 475 mg/dL (75-99)
[2020-10-17] MEDS ORDERED: INSULIN REGULAR 100 UNIT/ML VIAL IV ONE ×2 (09:32→11:23)
[2020-10-17 10:27] LABS: Glucose,Whole Blood 408 mg/dL (75-99)
[2020-10-17] MEDS ORDERED: INSULIN REGULAR 100 UNIT/ML VIAL IV STA (10:46)
[2020-10-17 11:56] LABS: Glucose,Whole Blood 140 mg/dL (75-99)
[2020-10-17 12:25] LABS: Glucose,Whole Blood 134 mg/dL (75-99)
[2020-10-17 12:34] VITALS: BP 114/67; PULSE 76
== END 2020-10-17 12:34 | disposition home or self-care (01) ==
LOC: EC 06:02
DX: E10.65 Type 1 diabetes mellitus with hyperglycemia (principal); F17.290 Nicotine dependence, other tobacco product, uncomplicated; J45.909 Unspecified asthma, uncomplicated; K21.9 Gastro-esophageal reflux disease without esophagitis
CPT/HCPCS: 36415; 80048; 85025; 99283

== ENCOUNTER 2020-10-25 19:50 | Emergency (ER) | payer OTHER ==
[2020-10-25 20:19] VITALS: BP 129/83; PULSE 92; RESP 20; TEMP 98.2
[2020-10-25] MEDS ORDERED: PROPARACAINE 0.5% OPHTH DROPS 15 ML BTL BOTH EYES STA (20:37)
[2020-10-25] MEDS ORDERED: FLUORESCEIN STRIPS 1 MG STRIP RIGHT EYE STA (20:37)
--- NOTE | 2020-10-25 22:00 | ED ---
General Adult HPI - General Chief complaint: Eye Problems Stated complaint: eye pain Time Seen by Provider: 10/25/20 20:37 Source: patient, RN notes reviewed Mode of arrival: ambulatory Limitations: no limitations - History of Present Illness Initial comments: 30-year-old male with a past medical history of type 1 diabetes, asthma, GERD presents to the emergency room for lateral right eye pain. Patient reports he noticed this about 3 days ago. States it has not seemed to go away so we decided to be evaluated. States this did happen one month ago as well but then resolved. Patient states this morning it hurt when he looked up or to the side but that since this morning it has not hurt him with movement. States it is a dull pain. States sometimes his vision is foggy but denies visual changes. Patient denies any fevers. Denies any swelling or redness in the area.Patient has no other complaints at this time including shortness of breath, chest pain, abdominal pain, nausea or vomiting, headache, or visual changes. - Related Data Home Medications Medication Instructions Recorded Confirmed INSULIN ASPART (NovoLOG) [NovoLOG See Protocol SQ AC-TID 07/20/20 10/17/20 (formulary)] Insulin Glargine [Lantus] 18 unit SQ HS 07/20/20 10/17/20 Fluticasone Propionate [Flovent 1 puff INHALATION RT-BID 10/17/20 10/17/20 Hfa 110 mcg] Previous Rx's Medication Instructions Recorded Ondansetron Odt [Zofran Odt] 4 mg PO Q8HR PRN #10 tab 09/22/20 Allergies Allergy/AdvReac Type Severity Reaction Status Date / Time No Known Allergies Allergy Verified 10/25/20 20:19 Review of Systems ROS Statement: Those systems with pertinent positive or pertinent negative responses have been documented in the HPI. ROS Other: All systems not noted in ROS Statement are negative. Past Medical History Past Medical History: Asthma, Diabetes Mellitus, GERD/Reflux Additional Past Medical History / Comment(s): DM type I, gastroparesis, Covid End of Jul 2020 History of Any Multi-Drug Resistant Organisms: None Reported Past Surgical History: Cholecystectomy Past Anesthesia/Blood Transfusion Reactions: Postoperative Nausea & Vomiting (PONV) Additional Past Anesthesia/Blood Transfusion Reaction / Comment(s): Pt has never received blood. Past Psychological History: No Psychological Hx Reported Smoking Status: Vaper Past Alcohol Use History: None Reported Past Drug Use History: Marijuana - Past Family History Father Family Medical History: Diabetes Mellitus, Hypertension Additional Family Medical History / Comment(s): type II diabetes. Mother Family Medical History: COPD Brother(s) Family Medical History: Diabetes Mellitus Additional Family Medical History / Comment(s): IDDM type I Sister(s) Family Medical History: No Reported History General Exam Limitations: no limitations General appearance: alert, in no apparent distress Head exam: Present: atraumatic, normocephalic, normal inspection Eye exam: Present: normal appearance, PERRL, EOMI (no pain with extraoccular motions). Absent: scleral icterus, conjunctival injection, periorbital swelling, periorbital tenderness Expanded Eyelids: Normal Inspection: Bilateral Pupils: Regular, Round: Bilateral Sclera/Conjunctival: Normal Inspection: Bilateral Visual acuity (R) = 20/: 40 Visual acuity (L) = 20/: 40 IOP (R) in mmH IOP (L) in mmH IOP measured with: Tonopen Course Vital Signs 10/25/20 20:16 Temperature 98.2 F Pulse Rate 92 Respiratory 20 Rate Blood Pressure 129/83 O2 Sat by Pulse 99 Oximetry Medical Decision Making - Medical Decision Making Vitals are stable. Patient is well-appearing. Blood glucose 274. I did stain the R eye with fluorescein stain and visualize with the Wood's lamp, no obvious abrasion or defects. Intraocular pressures are normal, 18 OD, 21 OS. Vision is 20/40 in each eye. No pain with extraocular movements. At this time recommended that patient follow up with ophthalmology. I did discuss strict return parameters including proptosis of the eye, pain with movements of the eye, or fevers. Disposition Clinical Impression: Eye pain Disposition: HOME SELF-CARE Condition: Good Instructions (If sedation given, give patient instructions): Eye Pain (ED) Additional Instructions: Please follow up with ophthalmology tomorrow. However if you have worsening symptoms such as worsening pain, fevers, or any other worsening symptoms return to the emergency room. Is patient prescribed a controlled substance at d/c from ED?: No Referrals: Brett Miller MD [Primary Care Provider] - 1-2 days Sourav Gusman MD [STAFF PHYSICIAN] - 1-2 days Time of Disposition: 21:57
== END 2020-10-25 22:17 | disposition home or self-care (01) ==
LOC: EC 19:50
DX: H57.11 Ocular pain, right eye (principal); J45.909 Unspecified asthma, uncomplicated; K21.9 Gastro-esophageal reflux disease without esophagitis; E10.9 Type 1 diabetes mellitus without complications; F17.290 Nicotine dependence, other tobacco product, uncomplicated; F12.90 Cannabis use, unspecified, uncomplicated; Z86.16 Personal history of COVID-19
CPT/HCPCS: 99284

== ENCOUNTER 2020-11-04 17:24 | Emergency (ER) | payer OTHER ==
[2020-11-04 17:28] VITALS: RESP 18
[2020-11-04 17:41] LABS: Glucose,Whole Blood 300 mg/dL (75-99)
--- NOTE | 2020-11-04 18:57 | ED ---
General Adult HPI - General Chief complaint: Recheck/Abnormal Lab/Rx Stated complaint: dizziness Time Seen by Provider: 11/04/20 18:07 Source: patient Mode of arrival: ambulatory Limitations: no limitations - History of Present Illness Initial comments: This patient is a 30-year-old man history of type 1 diabetes since age 19, who presents with complaint that he feels like his blood sugar has been up and down. The patient states she had run out of test strips 2 days ago and did not have them until today. He states that he has felt like his blood sugar has been high and low. He states sometimes he is feeling thirsty and urinating more frequently, sometimes feeling more somnolent. No vomiting. No abdominal pain. No palpitations or dyspnea -: days(s) Severity scale (1-10): 0 Consistency: constant Improves with: none Worsens with: none Associated Symptoms: malaise, nausea/vomiting Treatments Prior to Arrival: none - Related Data Home Medications Medication Instructions Recorded Confirmed INSULIN ASPART (NovoLOG) [NovoLOG See Protocol SQ AC-TID 07/20/20 10/17/20 (formulary)] Insulin Glargine [Lantus] 18 unit SQ HS 07/20/20 10/17/20 Fluticasone Propionate [Flovent 1 puff INHALATION RT-BID 10/17/20 10/17/20 Hfa 110 mcg] Previous Rx's Medication Instructions Recorded Ondansetron Odt [Zofran Odt] 4 mg PO Q8HR PRN #10 tab 09/22/20 Allergies Allergy/AdvReac Type Severity Reaction Status Date / Time No Known Allergies Allergy Verified 11/04/20 17:27 Review of Systems ROS Statement: Those systems with pertinent positive or pertinent negative responses have been documented in the HPI. ROS Other: All systems not noted in ROS Statement are negative. Constitutional: Denies: fever, chills, weakness Eyes: Denies: vision change ENT: Denies: congestion Respiratory: Denies: cough, dyspnea Cardiovascular: Denies: chest pain, palpitations, edema Gastrointestinal: Denies: abdominal pain, vomiting, diarrhea Genitourinary: Denies: dysuria, frequency, hematuria Musculoskeletal: Denies: back pain Skin: Denies: rash Neurological: Denies: headache, weakness, numbness, confusion Past Medical History Past Medical History: Asthma, Diabetes Mellitus, GERD/Reflux Additional Past Medical History / Comment(s): DM type I, gastroparesis, Covid End of Jul 2020 History of Any Multi-Drug Resistant Organisms: None Reported Past Surgical History: Cholecystectomy Past Anesthesia/Blood Transfusion Reactions: Postoperative Nausea & Vomiting (PONV) Additional Past Anesthesia/Blood Transfusion Reaction / Comment(s): Pt has never received blood. Past Psychological History: No Psychological Hx Reported Smoking Status: Vaper Past Alcohol Use History: None Reported Past Drug Use History: Marijuana - Past Family History Father Family Medical History: Diabetes Mellitus, Hypertension Additional Family Medical History / Comment(s): type II diabetes. Mother Family Medical History: COPD Brother(s) Family Medical History: Diabetes Mellitus Additional Family Medical History / Comment(s): IDDM type I Sister(s) Family Medical History: No Reported History General Exam Limitations: no limitations General appearance: alert, in no apparent distress Head exam: Present: atraumatic, normocephalic Eye exam: Present: normal appearance. Absent: scleral icterus, conjunctival injection Neck exam: Present: normal inspection Respiratory exam: Present: normal lung sounds bilaterally. Absent: respiratory distress, wheezes, rales, rhonchi, stridor Cardiovascular Exam: Present: regular rate, normal rhythm, normal heart sounds. Absent: systolic murmur, diastolic murmur, rubs, gallop GI/Abdominal exam: Present: soft. Absent: distended, tenderness, guarding, rebound, rigid, mass Extremities exam: Present: normal inspection, normal capillary refill. Absent: pedal edema, calf tenderness Back exam: Present: normal inspection. Absent: CVA tenderness (R), CVA tenderness (L) Neurological exam: Present: alert Skin exam: Present: warm, dry, intact, normal color. Absent: rash Course Vital Signs 11/04/20 11/04/20 17:25 19:20 Temperature 97.5 F L 97.8 F Pulse Rate 101 H 99 Respiratory 18 18 Rate Blood Pressure 119/83 128/80 O2 Sat by Pulse 97 97 Oximetry Medical Decision Making - Lab Data Result diagrams: 11/04/20 18:43 11/04/20 18:43 Lab Results 11/04/20 11/04/20 11/04/20 Range/Units 17:39 18:43 18:43 WBC 8.7 (3.8-10.6) k/uL RBC 5.56 (4.30-5.90) m/uL Hgb 17.1 (13.0-17.5) gm/dL Hct 48.0 (39.0-53.0) % MCV 86.4 (80.0-100.0) fL MCH 30.8 (25.0-35.0) pg MCHC 35.7 (31.0-37.0) g/dL RDW 12.4 (11.5-15.5) % Plt Count 218 (150-450) k/uL MPV 7.5 Neutrophils % 73 % Lymphocytes % 16 % Monocytes % 4 % Eosinophils % 6 % Basophils % 1 % Neutrophils # 6.3 (1.3-7.7) k/uL Lymphocytes # 1.4 (1.0-4.8) k/uL Monocytes # 0.3 (0-1.0) k/uL Eosinophils # 0.5 (0-0.7) k/uL Basophils # 0.1 (0-0.2) k/uL Sodium 131 L (137-145) mmol/L Potassium 4.5 (3.5-5.1) mmol/L Chloride 94 L (98-107) mmol/L Carbon Dioxide 27 (22-30) mmol/L Anion Gap 10 mmol/L BUN 20 (9-20) mg/dL Creatinine 0.73 (0.66-1.25) mg/dL Est GFR (CKD-EPI)AfAm >90 (>60 ml/min/1.73 sqM) Est GFR (CKD-EPI)NonAf >90 (>60 ml/min/1.73 sqM) Glucose 319 H (74-99) mg/dL POC Glucose (mg/dL) 300 H (75-99) mg/dL POC Glu Manager Community Relations ID Niko Vela Calcium 9.9 (8.4-10.2) mg/dL Total Bilirubin 0.9 (0.2-1.3) mg/dL AST 21 (17-59) U/L ALT 19 (4-49) U/L Alkaline Phosphatase 133 H (38-126) U/L Total Protein 7.1 (6.3-8.2) g/dL Albumin 4.7 (3.5-5.0) g/dL Urine Color Urine Appearance (Clear) Urine pH (5.0-8.0) Ur Specific [place] (1.001-1.035) Urine Protein (Negative) Urine Glucose (UA) (Negative) Urine Ketones (Negative) Urine Blood (Negative) Urine Nitrite (Negative) Urine Bilirubin (Negative) Urine Urobilinogen (<2.0) mg/dL Ur Leukocyte Esterase (Negative) Acetone, Qual Negative (Negative) 11/04/20 11/04/20 Range/Units 19:20 19:52 WBC (3.8-10.6) k/uL RBC (4.30-5.90) m/uL Hgb (13.0-17.5) gm/dL Hct (39.0-53.0) % MCV (80.0-100.0) fL MCH (25.0-35.0) pg MCHC (31.0-37.0) g/dL RDW (11.5-15.5) % Plt Count (150-450) k/uL MPV Neutrophils % % Lymphocytes % % Monocytes % % Eosinophils % % Basophils % % Neutrophils # (1.3-7.7) k/uL Lymphocytes # (1.0-4.8) k/uL Monocytes # (0-1.0) k/uL Eosinophils # (0-0.7) k/uL Basophils # (0-0.2) k/uL Sodium (137-145) mmol/L Potassium (3.5-5.1) mmol/L Chloride (98-107) mmol/L Carbon Dioxide (22-30) mmol/L Anion Gap mmol/L BUN (9-20) mg/dL Creatinine (0.66-1.25) mg/dL Est GFR (CKD-EPI)AfAm (>60 ml/min/1.73 sqM) Est GFR (CKD-EPI)NonAf (>60 ml/min/1.73 sqM) Glucose (74-99) mg/dL POC Glucose (mg/dL) 342 H (75-99) mg/dL POC Glu Manager Community Relations ID Driss, Maggie Calcium (8.4-10.2) mg/dL Total Bilirubin (0.2-1.3) mg/dL AST (17-59) U/L ALT (4-49) U/L Alkaline Phosphatase (38-126) U/L Total Protein (6.3-8.2) g/dL Albumin (3.5-5.0) g/dL Urine Color Yellow Urine Appearance Clear (Clear) Urine pH 6.0 (5.0-8.0) Ur Specific [place] 1.036 H (1.001-1.035) Urine Protein Trace H (Negative) Urine Glucose (UA) 4+ H (Negative) Urine Ketones 2+ H (Negative) Urine Blood Negative (Negative) Urine Nitrite Negative (Negative) Urine Bilirubin Negative (Negative) Urine Urobilinogen 2.0 (<2.0) mg/dL Ur Leukocyte Esterase Negative (Negative) Acetone, Qual (Negative) Disposition Clinical Impression: Hyperglycemia Disposition: HOME SELF-CARE Condition: Good Instructions (If sedation given, give patient instructions): Diabetic Hyperglycemia (ED) Is patient prescribed a controlled substance at d/c from ED?: No Referrals: Brett Miller MD [Primary Care Provider] - 1-2 days
[2020-11-04 19:09] LABS: Basophils # (A) 0.1 k/uL (0-0.2); Basophils % (A) 1 %; Eosinophils # (A) 0.5 k/uL (0-0.7); Eosinophils % (A) 6 %; HGB 17.1 gm/dL (13.0-17.5); Lymphocytes # (A) 1.4 k/uL (1.0-4.8); Lymphocytes % (A) 16 %; MCH 30.8 pg (25.0-35.0); MCHC 35.7 g/dL (31.0-37.0); MCV 86.4 fL (80.0-100.0); Mean Platelet Volume 7.5; Monocytes # (A) 0.3 k/uL (0-1.0); Monocytes % (A) 4 %; Neutrophils # (A) 6.3 k/uL (1.3-7.7); Neutrophils % (A) 73 %; Platelet Count 218 k/uL (150-450); RBC 5.56 m/uL (4.30-5.90); RDW 12.4 % (11.5-15.5); WBC 8.7 k/uL (3.8-10.6)
[2020-11-04 19:20] LABS: ALT 19 U/L (4-49); AST 21 U/L (17-59); African American GFR (CKD) >90 (>60 ml/min/1.73 sqM); Albumin 4.7 g/dL (3.5-5.0); Alkaline Phosphatase 133 U/L (38-126); Anion Gap 10 mmol/L; Blood Urea Nitrogen 20 mg/dL (9-20); Calcium 9.9 mg/dL (8.4-10.2); Carbon Dioxide 27 mmol/L (22-30); Chloride 94 mmol/L (98-107); Glucose 319 mg/dL (74-99); Non-African American GFR(CKD) >90 (>60 ml/min/1.73 sqM); Potassium 4.5 mmol/L (3.5-5.1); Sodium 131 mmol/L (137-145); Total Bilirubin 0.9 mg/dL (0.2-1.3); Total Protein 7.1 g/dL (6.3-8.2)
[2020-11-04 19:31] LABS: Appearance,Urine Clear (Clear); Bilirubin,Urine Negative (Negative); Blood,Urine Negative (Negative); Color,Urine Yellow; Glucose,Urine (UA) 4+ (Negative); Leukocyte Esterase,Urine Negative (Negative); Nitrite,Urine Negative (Negative); Protein,Urine Trace (Negative); Specific Gravity,Urine 1.036 (1.001-1.035)
[2020-11-04 19:34] VITALS: TEMP 97.8
[2020-11-04] MEDS ORDERED: INSULIN REGULAR 100 UNIT/ML VIAL SQ STA (19:43)
[2020-11-04] MEDS ORDERED: SODIUM CHLORIDE 0.9% 2,000 ML IV ONE (19:43)
[2020-11-04 19:52] LABS: Ketones,Urine 2+ (Negative)
[2020-11-04 19:53] LABS: Glucose,Whole Blood 342 mg/dL (75-99)
[2020-11-04 21:03] VITALS: BP 110/75; PULSE 95
== END 2020-11-04 21:03 | disposition home or self-care (01) ==
LOC: EC 17:24
DX: E10.65 Type 1 diabetes mellitus with hyperglycemia (principal); E10.43 Type 1 diabetes mellitus with diabetic autonomic (poly)neuropathy; K31.84 Gastroparesis; J45.909 Unspecified asthma, uncomplicated; F17.290 Nicotine dependence, other tobacco product, uncomplicated; Z79.4 Long term (current) use of insulin; Z79.51 Long term (current) use of inhaled steroids
CPT/HCPCS: 36415; 80053; 81003; 82009; 85025; 96360; 99284

== ENCOUNTER 2020-11-21 21:11 | Emergency (ER) | payer OTHER ==
[2020-11-21 21:17] VITALS: BP 142/86; PULSE 85; RESP 20; TEMP 98
--- NOTE | 2020-11-21 22:23 | ED ---
Headache HPI - General Chief Complaint: Headache Stated Complaint: Poss Sinus infection Time Seen by Provider: 11/21/20 21:47 Mode of arrival: ambulatory Limitations: no limitations - History of Present Illness Initial Comments: Patient is a 30-year-old male with history of diabetes, presenting to the emergency Department with complaints of sinus pressure and a headache over the last 4-5 days. He states he's had a sinus infection in the past and feels like this again. He states he has some nasal congestion and a pressure over the last few days but today seems to be increasing in severity and he is concerned that he has an infection. He denies any fevers or chills, no cough, no chest pain or shortness of breath. He states he has pressure underneath his eyes and his f orehead. He states he also has pressure that wraps around his head. He denies any changes in vision, no trauma. He has no further complaints. - Related Data Home Medications Medication Instructions Recorded Confirmed INSULIN ASPART (NovoLOG) [NovoLOG See Protocol SQ AC-TID 07/20/20 10/17/20 (formulary)] Insulin Glargine [Lantus] 18 unit SQ HS 07/20/20 10/17/20 Fluticasone Propionate [Flovent 1 puff INHALATION RT-BID 10/17/20 10/17/20 Hfa 110 mcg] Previous Rx's Medication Instructions Recorded Ondansetron Odt [Zofran Odt] 4 mg PO Q8HR PRN #10 tab 09/22/20 Amoxicillin/Potassium Clav 1 tab PO BID 5 Days #10 tab 11/21/20 [Augmentin 875-125 Tablet] Allergies Allergy/AdvReac Type Severity Reaction Status Date / Time No Known Allergies Allergy Verified 11/21/20 21:17 Review of Systems ROS Statement: Those systems with pertinent positive or pertinent negative responses have been documented in the HPI. ROS Other: All systems not noted in ROS Statement are negative. Past Medical History Past Medical History: Asthma, Diabetes Mellitus, GERD/Reflux Additional Past Medical History / Comment(s): DM type I, gastroparesis, Covid End of Jul 2020 History of Any Multi-Drug Resistant Organisms: None Reported Past Surgical History: Cholecystectomy Past Anesthesia/Blood Transfusion Reactions: Postoperative Nausea & Vomiting (PONV) Additional Past Anesthesia/Blood Transfusion Reaction / Comment(s): Pt has never received blood. Past Psychological History: No Psychological Hx Reported Smoking Status: Vaper Past Alcohol Use History: None Reported Past Drug Use History: Marijuana - Past Family History Father Family Medical History: Diabetes Mellitus, Hypertension Additional Family Medical History / Comment(s): type II diabetes. Mother Family Medical History: COPD Brother(s) Family Medical History: Diabetes Mellitus Additional Family Medical History / Comment(s): IDDM type I Sister(s) Family Medical History: No Reported History General Exam - General Exam Comments Initial Comments: GENERAL: Patient is well-developed and well-nourished. Patient is nontoxic and in no acute distress. HEAD: Atraumatic, normocephalic. EYES: Pupils equal round and reactive to light, extraocular movements intact, sclera anicteric, conjunctiva are normal. Eyelids were unremarkable. ENT: TMs normal, nares patent, oropharynx clear without exudates. Moist mucous membranes. Increased pain with maxillary and frontal sinus compression. NECK: Normal range of motion, supple without lymphadenopathy or JVD. LUNGS: Unlabored respirations. Breath sounds clear to auscultation bilaterally and equal. No wheezes rales or rhonchi. HEART: Regular rate and rhythm without murmurs, rubs or gallops. ABDOMEN: Soft, nontender, normoactive bowel sounds. No guarding, no rebound. No masses appreciated. : Deferred MUSCULOSKELETAL: Normal extremities with adequate strength and normal range of motion, no pitting or edema. No clubbing or cyanosis. NEUROLOGICAL: Patient is alert and oriented x 3. Motor and sensory are also intact. Cranial nerves II through XII grossly intact. Symmetrical smile. Normal speech, normal gait. PSYCH: Normal mood, normal affect. SKIN: Warm, Dry, normal turgor, no rashes or lesions noted. Limitations: no limitations Course Vital Signs 11/21/20 21:15 Temperature 98.0 F Pulse Rate 85 Respiratory 20 Rate Blood Pressure 142/86 O2 Sat by Pulse 100 Oximetry Medical Decision Making - Medical Decision Making Patient is a 30-year-old male with history of diabetes here for concerns over a sinus infection. Cough and cold symptoms for the last 5 days, increased sinus pressure with palpation. His vital signs are stable. Exam is otherwise unremarkable. I discussed with patient this is most likely viral in nature however if he feels like his symptoms are worsening, I will prescribe and Augmentin for sinus infection. I recommended dealing antibiotic for 1-2 days to see if symptoms improve on their own. Recommend Tylenol Motrin for any discomfort. He is in agreement with this plan of care. He is stable for dis charge. Return parameters were discussed with the patient he verbalizes understanding. Case discussed with Dr. Tadeo. Disposition Clinical Impression: Sinusitis Disposition: HOME SELF-CARE Condition: Stable Instructions (If sedation given, give patient instructions): Sinusitis (ED) Additional Instructions: Please return to the Emergency Department if symptoms worsen or any other concerns. Recommend warm compresses to the sinuses, Tylenol Motrin for any discomfort. May start antibiotic if symptoms continue. Follow-up with your PCP. Prescriptions: Amoxicillin/Potassium Clav [Augmentin 875-125 Tablet] 1 tab PO BID 5 Days #10 tab Is patient prescribed a controlled substance at d/c from ED?: No Referrals: Brett Miller MD [Primary Care Provider] - 1-2 days Time of Disposition: 22:23
== END 2020-11-21 22:35 | disposition home or self-care (01) ==
LOC: EC 21:11
DX: J32.9 Chronic sinusitis, unspecified (principal); E10.43 Type 1 diabetes mellitus with diabetic autonomic (poly)neuropathy; J45.909 Unspecified asthma, uncomplicated; F12.90 Cannabis use, unspecified, uncomplicated; Z79.4 Long term (current) use of insulin; Z90.49 Acquired absence of other specified parts of digestive tract
CPT/HCPCS: 99283

== ENCOUNTER 2020-12-20 21:32 | Emergency (ER) | payer OTHER ==
[2020-12-20 21:38] VITALS: TEMP 98.1
[2020-12-20] MEDS ORDERED: SODIUM CHLORIDE 0.9% 1,000 ML IV STA (21:46)
[2020-12-20] MEDS ORDERED: IPRATROPIUM-ALBUTEROL 3 ML NEB INHALATION STA (21:47)
--- NOTE | 2020-12-20 21:50 | ED ---
Chest Pain HPI - General Chief Complaint: Chest Pain Stated Complaint: chest tightness Time Seen by Provider: 12/20/20 21:46 Source: patient, RN notes reviewed, old records reviewed Mode of arrival: wheelchair Limitations: no limitations - History of Present Illness Initial Comments: This is a 30-year-old male DF for evaluation patient Dese for evaluation of shortness of breath cough and congestion history of asthma. No fevers no chest pain. Patient also concern of elevated blood sugar recently. MD Complaint: other (Shortness of breath with cough) -: days(s) Onset: during rest, during exertion Pain Location: substernal Pain Radiation: none Severity: mild Severity scale (1-10): 3 Quality: tightness Consistency: intermittent Improves With: nothing Worsens With: exertion Context: recent illness Anginal Symptoms: dyspnea Other Symptoms: cough Treatments Prior to Arrival: none - Related Data Home Medications Medication Instructions Recorded Confirmed Insulin Aspart (For Pump) [NovoLOG 0.01 unit SQ-PUMP CONTINUOUS 12/20/20 12/23/20 (For Pump)] Albuterol Sulfate [Proair Hfa] 1 - 2 puff INHALATION RT-Q4H PRN 12/23/20 12/23/20 Azithromycin [Zithromax Z-pack (6 See Taper PO DAILY 12/23/20 12/23/20 tabs)] Previous Rx's Medication Instructions Recorded predniSONE 50 mg PO DAILY #5 tab 12/20/20 Allergies Allergy/AdvReac Type Severity Reaction Status Date / Time No Known Allergies Allergy Verified 12/23/20 19:28 Review of Systems ROS Statement: Those systems with pertinent positive or pertinent negative responses have been documented in the HPI. ROS Other: All systems not noted in ROS Statement are negative. EKG Findings - EKG Comments: EKG Findings:: EKG is sinus rhythm rate of 80 WA 126 QRS 90 QTC 410 Past Medical History Past Medical History: Asthma, Diabetes Mellitus, GERD/Reflux Additional Past Medical History / Comment(s): DM type I, gastroparesis, Covid End of Jul 2020 History of Any Multi-Drug Resistant Organisms: None Reported Past Surgical History: Cholecystectomy Past Anesthesia/Blood Transfusion Reactions: Postoperative Nausea & Vomiting (PONV) Additional Past Anesthesia/Blood Transfusion Reaction / Comment(s): Pt has never received blood. Past Psychological History: No Psychological Hx Reported Smoking Status: Vaper Past Alcohol Use History: None Reported Past Drug Use History: Marijuana - Past Family History Father Family Medical History: Diabetes Mellitus, Hypertension Additional Family Medical History / Comment(s): type II diabetes. Mother Family Medical History: COPD Brother(s) Family Medical History: Diabetes Mellitus Additional Family Medical History / Comment(s): IDDM type I Sister(s) Family Medical History: No Reported History General Exam Limitations: no limitations General appearance: alert, in no apparent distress, anxious Head exam: Present: atraumatic, normocephalic, normal inspection Eye exam: Present: normal appearance, PERRL, EOMI. Absent: scleral icterus, conjunctival injection, periorbital swelling ENT exam: Present: normal exam, mucous membranes moist Neck exam: Present: normal inspection. Absent: tenderness, meningismus, lymphadenopathy Respiratory exam: Present: wheezes. Absent: respiratory distress, rales, rhonchi, stridor Cardiovascular Exam: Present: regular rate, normal rhythm, normal heart sounds. Absent: systolic murmur, diastolic murmur, rubs, gallop, clicks GI/Abdominal exam: Present: soft, normal bowel sounds. Absent: distended, tenderness, guarding, rebound, rigid Extremities exam: Present: normal inspection, full ROM, normal capillary refill. Absent: tenderness, pedal edema, joint swelling, calf tenderness Back exam: Present: normal inspection Neurological exam: Present: alert, oriented X3, CN II-XII intact Psychiatric exam: Present: normal affect, normal mood Skin exam: Present: warm, dry, intact, normal color. Absent: rash Course Vital Signs 12/20/20 12/20/20 12/20/20 21:36 22:10 22:18 Temperature 98.1 F Pulse Rate 85 85 88 Respiratory 18 Rate Blood Pressure 132/81 O2 Sat by Pulse 99 Oximetry 12/20/20 23:40 Temperature Pulse Rate 69 Respiratory 17 Rate Blood Pressure 130/78 O2 Sat by Pulse 100 Oximetry - Reevaluation(s) Reevaluation #1: Medical record is reviewed Patient symptoms significantly improved here in the ER Patient informed results questions answered Patient feels good for discharge home Chest Pain MDM - MDM 30 male for acute asthma exacerbation. Symptoms are improved here in the ER he can be discharged home Disposition Clinical Impression: Asthma, Acute asthma exacerbation Disposition: HOME SELF-CARE Condition: Good Instructions (If sedation given, give patient instructions): Asthma (ED) Prescriptions: predniSONE 50 mg PO DAILY #5 tab Is patient prescribed a controlled substance at d/c from ED?: No Referrals: Brett Miller MD [Primary Care Provider] - 1-2 days
--- NOTE | 2020-12-20 22:14 | XR ---
EXAMINATION TYPE: XR chest 2V DATE OF EXAM: 12/20/2020 COMPARISON: 09/16/2020 HISTORY: Difficulty breathing TECHNIQUE: 2 views FINDINGS: Heart and mediastinum are normal. Lungs are clear. Diaphragm is normal. Bony thorax is norm al. IMPRESSION: Normal chest. No change.
[2020-12-20 22:29] LABS: Basophils # (A) 0.1 k/uL (0-0.2); Basophils % (A) 1 %; Eosinophils # (A) 0.3 k/uL (0-0.7); Eosinophils % (A) 4 %; HCT 43.1 % (39.0-53.0); HGB 14.9 gm/dL (13.0-17.5); Lymphocytes # (A) 1.5 k/uL (1.0-4.8); Lymphocytes % (A) 21 %; MCH 29.9 pg (25.0-35.0); MCHC 34.6 g/dL (31.0-37.0); MCV 86.5 fL (80.0-100.0); Mean Platelet Volume 7.5; Monocytes # (A) 0.4 k/uL (0-1.0); Monocytes % (A) 5 %; Neutrophils # (A) 4.9 k/uL (1.3-7.7); Neutrophils % (A) 68 %; Platelet Count 237 k/uL (150-450); RBC 4.98 m/uL (4.30-5.90); RDW 12.8 % (11.5-15.5); WBC 7.3 k/uL (3.8-10.6)
[2020-12-20 22:39] LABS: ALT 30 U/L (4-49); AST 24 U/L (17-59); African American GFR (CKD) >90 (>60 ml/min/1.73 sqM); Albumin 4.2 g/dL (3.5-5.0); Alkaline Phosphatase 91 U/L (38-126); Anion Gap 7 mmol/L; Blood Urea Nitrogen 17 mg/dL (9-20); Calcium 9.7 mg/dL (8.4-10.2); Carbon Dioxide 30 mmol/L (22-30); Chloride 98 mmol/L (98-107); Creatine Kinase 32 U/L (55-170); Glucose 390 mg/dL (74-99); Magnesium 1.8 mg/dL (1.6-2.3); Non-African American GFR(CKD) >90 (>60 ml/min/1.73 sqM); Potassium 4.4 mmol/L (3.5-5.1); Sodium 135 mmol/L (137-145); Total Bilirubin 0.5 mg/dL (0.2-1.3); Total Protein 6.4 g/dL (6.3-8.2)
[2020-12-20 22:42] LABS: INR 0.9 (<1.2); Partial Thromboplastin Time 23.1 sec (22.0-30.0); Prothrombin Time 9.7 sec (9.0-12.0)
[2020-12-20] MEDS ORDERED: methylPREDNISolone SOD SUCCI 125 MG/2 ML VIAL IV STA (23:03)
[2020-12-20] MEDS ORDERED: KETOROLAC 15 MG/ML 1 ML VIAL IVP STA (23:03)
[2020-12-20] MEDS ORDERED: AZITHROMYCIN 500 MG TAB PO STA (23:06)
[2020-12-20] MEDS ORDERED: INSULIN REGULAR 100 UNIT/ML VIAL (IV) IV ONE (23:07)
[2020-12-20] MEDS ORDERED: INSULIN REGULAR 100 UNIT/ML VIAL (IV) SQ ONE (23:07)
[2020-12-20 23:44] VITALS: BP 130/78; PULSE 69; RESP 17
== END 2020-12-20 23:44 | disposition home or self-care (01) ==
LOC: EC 21:32
DX: E10.10 Type 1 diabetes mellitus with ketoacidosis without coma (principal); J45.901 Unspecified asthma with (acute) exacerbation; K21.9 Gastro-esophageal reflux disease without esophagitis; F17.290 Nicotine dependence, other tobacco product, uncomplicated; F12.90 Cannabis use, unspecified, uncomplicated; Z86.16 Personal history of COVID-19; Z79.51 Long term (current) use of inhaled steroids
CPT/HCPCS: 36415; 71046; 80053; 82550; 83735; 83880; 84484; 85025; 85379; 85610; 85730; 93005; 94640; 96374; 96375; 99285

== ENCOUNTER 2020-12-23 18:16 | Emergency (ER) | payer OTHER ==
[2020-12-23 18:23] VITALS: TEMP 98
[2020-12-23 18:24] LABS: Glucose,Whole Blood 483 mg/dL (75-99)
[2020-12-23] MEDS ORDERED: SODIUM CHLORIDE 0.9% 2,000 ML IV STA (18:47)
--- NOTE | 2020-12-23 18:50 | ED ---
General Adult HPI - General Chief complaint: Recheck/Abnormal Lab/Rx Stated complaint: Hyperglycemia Time Seen by Provider: 12/23/20 18:37 Source: patient, RN notes reviewed Mode of arrival: ambulatory Limitations: no limitations - History of Present Illness Initial comments: 30-year-old male with a past medical history of IDDM type I, gastroparesis, as thma, presents to the emergency room for high sugars. Patient states his blood sugars have been over 400. States he was started on steroids a few days ago and thinks this is what caused it. He was started on these as he was having an asthma exacerbation. Patient states that his pump has been giving him extra units but he cannot keep it down. States he is starting to feel ill because of this with some mild lightheadedness.Patient has no other complaints at this time including shortness of breath, chest pain, abdominal pain, nv, headache, or visual changes. - Related Data Home Medications Medication Instructions Recorded Confirmed Insulin Aspart (For Pump) [NovoLOG 0.01 unit SQ-PUMP CONTINUOUS 12/20/20 12/23/20 (For Pump)] Albuterol Sulfate [Proair Hfa] 1 - 2 puff INHALATION RT-Q4H PRN 12/23/20 12/23/20 Azithromycin [Zithromax Z-pack (6 See Taper PO DAILY 12/23/20 12/23/20 tabs)] Previous Rx's Medication Instructions Recorded predniSONE 50 mg PO DAILY #5 tab 12/20/20 Allergies Allergy/AdvReac Type Severity Reaction Status Date / Time No Known Allergies Allergy Verified 12/23/20 19:28 Review of Systems ROS Statement: Those systems with pertinent positive or pertinent negative responses have been documented in the HPI. ROS Other: All systems not noted in ROS Statement are negative. Past Medical History Past Medical History: Asthma, Diabetes Mellitus, GERD/Reflux Additional Past Medical History / Comment(s): DM type I, gastroparesis, Covid End of Jul 2020 History of Any Multi-Drug Resistant Organisms: None Reported Past Surgical History: Cholecystectomy Past Anesthesia/Blood Transfusion Reactions: Postoperative Nausea & Vomiting (PONV) Additional Past Anesthesia/Blood Transfusion Reaction / Comment(s): Pt has never received blood. Past Psychological History: No Psychological Hx Reported Smoking Status: Vaper Past Alcohol Use History: None Reported Past Drug Use History: Marijuana - Past Family History Father Family Medical History: Diabetes Mellitus, Hypertension Additional Family Medical History / Comment(s): type II diabetes. Mother Family Medical History: COPD Brother(s) Family Medical History: Diabetes Mellitus Additional Family Medical History / Comment(s): IDDM type I Sister(s) Family Medical History: No Reported History General Exam Limitations: no limitations General appearance: alert, in no apparent distress Head exam: Present: atraumatic, normocephalic, normal inspection Eye exam: Present: normal appearance, PERRL, EOMI. Absent: scleral icterus, conjunctival injection, periorbital swelling ENT exam: Present: normal exam Neck exam: Present: normal inspection, full ROM. Absent: tenderness, meningismus, lymphadenopathy Respiratory exam: Present: normal lung sounds bilaterally. Absent: respiratory distress, wheezes, rales, rhonchi, stridor Cardiovascular Exam: Present: regular rate, normal rhythm, normal heart sounds. Absent: systolic murmur, diastolic murmur, rubs, gallop, clicks GI/Abdominal exam: Present: soft, normal bowel sounds. Absent: distended, tenderness, guarding, rebound, rigid Neurological exam: Present: alert Course Vital Signs 12/23/20 12/23/20 18:20 21:24 Temperature 98.0 F Pulse Rate 95 93 Respiratory 16 18 Rate Blood Pressure 125/71 125/65 O2 Sat by Pulse 98 96 Oximetry Medical Decision Making - Medical Decision Making Vitals are stable. CBC unremarkable. CMP does show hyperglycemia with a glucose of 494. Iodine gap is 7. Ketones are negative and the urine. Acetone is negative as well. Chest x-ray shows no acute process. I suspect steroids did cause increase in hyperglycemia. Patient was given 2 L of fluid and this it did improve to 375. Patient was given subcutaneous insulin and this did come down to 352. It is on a downward projection. Patient is not acidotic or ketotic. Patient will be discharged home to follow up with primary care. He will monitor his sugar. He'll return for any worsening symptoms. - Lab Data Result diagrams: 12/23/20 18:57 12/23/20 18:57 Lab Results 12/23/20 12/23/20 12/23/20 Range/Units 18:23 18:57 18:57 WBC 9.5 (3.8-10.6) k/uL RBC 4.73 (4.30-5.90) m/uL Hgb 14.7 (13.0-17.5) gm/dL Hct 41.4 (39.0-53.0) % MCV 87.6 (80.0-100.0) fL MCH 31.0 (25.0-35.0) pg MCHC 35.4 (31.0-37.0) g/dL RDW 13.0 (11.5-15.5) % Plt Count 217 (150-450) k/uL MPV 7.4 Neutrophils % 79 % Lymphocytes % 13 % Monocytes % 3 % Eosinophils % 3 % Basophils % 1 % Neutrophils # 7.5 (1.3-7.7) k/uL Lymphocytes # 1.3 (1.0-4.8) k/uL Monocytes # 0.3 (0-1.0) k/uL Eosinophils # 0.3 (0-0.7) k/uL Basophils # 0.1 (0-0.2) k/uL Sodium (137-145) mmol/L Potassium (3.5-5.1) mmol/L Chloride (98-107) mmol/L Carbon Dioxide (22-30) mmol/L Anion Gap mmol/L BUN (9-20) mg/dL Creatinine (0.66-1.25) mg/dL Est GFR (CKD-EPI)AfAm (>60 ml/min/1.73 sqM) Est GFR (CKD-EPI)NonAf (>60 ml/min/1.73 sqM) Glucose (74-99) mg/dL POC Glucose (mg/dL) 483 H (75-99) mg/dL POC Glu Pattern Lease Inspector ID [facility] Calcium (8.4-10.2) mg/dL Total Bilirubin (0.2-1.3) mg/dL AST (17-59) U/L ALT (4-49) U/L Alkaline Phosphatase (38-126) U/L Total Protein (6.3-8.2) g/dL Albumin (3.5-5.0) g/dL Amylase (30-110) U/L Lipase (23-300) U/L Urine Color Light Yellow Urine Appearance Clear (Clear) Urine pH 6.5 (5.0-8.0) Ur Specific [place] 1.032 (1.001-1.035) Urine Protein Negative (Negative) Urine Glucose (UA) 4+ H (Negative) Urine Ketones Negative (Negative) Urine Blood Negative (Negative) Urine Nitrite Negative (Negative) Urine Bilirubin Negative (Negative) Urine Urobilinogen <2.0 (<2.0) mg/dL Ur Leukocyte Esterase Negative (Negative) Acetone, Qual (Negative) 12/23/20 12/23/20 12/23/20 Range/Units 18:57 20:35 22:00 WBC (3.8-10.6) k/uL RBC (4.30-5.90) m/uL Hgb (13.0-17.5) gm/dL Hct (39.0-53.0) % MCV (80.0-100.0) fL MCH (25.0-35.0) pg MCHC (31.0-37.0) g/dL RDW (11.5-15.5) % Plt Count (150-450) k/uL MPV Neutrophils % % Lymphocytes % % Monocytes % % Eosinophils % % Basophils % % Neutrophils # (1.3-7.7) k/uL Lymphocytes # (1.0-4.8) k/uL Monocytes # (0-1.0) k/uL Eosinophils # (0-0.7) k/uL Basophils # (0-0.2) k/uL Sodium 133 L (137-145) mmol/L Potassium 4.7 (3.5-5.1) mmol/L Chloride 98 (98-107) mmol/L Carbon Dioxide 28 (22-30) mmol/L Anion Gap 7 mmol/L BUN 14 (9-20) mg/dL Creatinine 0.79 (0.66-1.25) mg/dL Est GFR (CKD-EPI)AfAm >90 (>60 ml/min/1.73 sqM) Est GFR (CKD-EPI)NonAf >90 (>60 ml/min/1.73 sqM) Glucose 494 H (74-99) mg/dL POC Glucose (mg/dL) 375 H 380 H (75-99) mg/dL POC Glu Pattern Lease Inspector PARRISH Jose E JayroJaryo Sanders Calcium 8.7 (8.4-10.2) mg/dL Total Bilirubin 0.5 (0.2-1.3) mg/dL AST 24 (17-59) U/L ALT 30 (4-49) U/L Alkaline Phosphatase 116 (38-126) U/L Total Protein 6.1 L (6.3-8.2) g/dL Albumin 4.0 (3.5-5.0) g/dL Amylase 40 (30-110) U/L Lipase 103 (23-300) U/L Urine Color Urine Appearance (Clear) Urine pH (5.0-8.0) Ur Specific [place] (1.001-1.035) Urine Protein (Negative) Urine Glucose (UA) (Negative) Urine Ketones (Negative) Urine Blood (Negative) Urine Nitrite (Negative) Urine Bilirubin (Negative) Urine Urobilinogen (<2.0) mg/dL Ur Leukocyte Esterase (Negative) Acetone, Qual Negative (Negative) 12/23/20 Range/Units 22:55 WBC (3.8-10.6) k/uL RBC (4.30-5.90) m/uL Hgb (13.0-17.5) gm/dL Hct (39.0-53.0) % MCV (80.0-100.0) fL MCH (25.0-35.0) pg MCHC (31.0-37.0) g/dL RDW (11.5-15.5) % Plt Count (150-450) k/uL MPV Neutrophils % % Lymphocytes % % Monocytes % % Eosinophils % % Basophils % % Neutrophils # (1.3-7.7) k/uL Lymphocytes # (1.0-4.8) k/uL Monocytes # (0-1.0) k/uL Eosinophils # (0-0.7) k/uL Basophils # (0-0.2) k/uL Sodium (137-145) mmol/L Potassium (3.5-5.1) mmol/L Chloride (98-107) mmol/L Carbon Dioxide (22-30) mmol/L Anion Gap mmol/L BUN (9-20) mg/dL Creatinine (0.66-1.25) mg/dL Est GFR (CKD-EPI)AfAm (>60 ml/min/1.73 sqM) Est GFR (CKD-EPI)NonAf (>60 ml/min/1.73 sqM) Glucose (74-99) mg/dL POC Glucose (mg/dL) 352 H (75-99) mg/dL POC Glu Pattern Lease Inspector ID Jayro Dorantes Calcium (8.4-10.2) mg/dL Total Bilirubin (0.2-1.3) mg/dL AST (17-59) U/L ALT (4-49) U/L Alkaline Phosphatase (38-126) U/L Total Protein (6.3-8.2) g/dL Albumin (3.5-5.0) g/dL Amylase (30-110) U/L Lipase (23-300) U/L Urine Color Urine Appearance (Clear) Urine pH (5.0-8.0) Ur Specific [place] (1.001-1.035) Urine Protein (Negative) Urine Glucose (UA) (Negative) Urine Ketones (Negative) Urine Blood (Negative) Urine Nitrite (Negative) Urine Bilirubin (Negative) Urine Urobilinogen (<2.0) mg/dL Ur Leukocyte Esterase (Negative) Acetone, Qual (Negative) Disposition Clinical Impression: Hyperglycemia Disposition: HOME SELF-CARE Condition: Good Instructions (If sedation given, give patient instructions): Diabetic Hyperglycemia (ED) Additional Instructions: Please drink plenty of fluids. Discontinue prednisone. Follow-up with your doctor in one to 2 days. Return to the emergency room for any worsening symptoms. Is patient prescribed a controlled substance at d/c from ED?: No Referrals: Brett Miller MD [Primary Care Provider] - 1-2 days Time of Disposition: 22:59
[2020-12-23 19:01] LABS: Basophils # (A) 0.1 k/uL (0-0.2); Basophils % (A) 1 %; Eosinophils # (A) 0.3 k/uL (0-0.7); Eosinophils % (A) 3 %; HCT 41.4 % (39.0-53.0); HGB 14.7 gm/dL (13.0-17.5); Lymphocytes # (A) 1.3 k/uL (1.0-4.8); Lymphocytes % (A) 13 %; MCHC 35.4 g/dL (31.0-37.0); MCV 87.6 fL (80.0-100.0); Mean Platelet Volume 7.4; Monocytes # (A) 0.3 k/uL (0-1.0); Monocytes % (A) 3 %; Neutrophils # (A) 7.5 k/uL (1.3-7.7); Neutrophils % (A) 79 %; Platelet Count 217 k/uL (150-450); RBC 4.73 m/uL (4.30-5.90); WBC 9.5 k/uL (3.8-10.6)
[2020-12-23 19:02] LABS: Appearance,Urine Clear (Clear); Bilirubin,Urine Negative (Negative); Blood,Urine Negative (Negative); Color,Urine Light Yellow; Glucose,Urine (UA) 4+ (Negative); Ketones,Urine Negative (Negative); Leukocyte Esterase,Urine Negative (Negative); Nitrite,Urine Negative (Negative); PH, Urine 6.5 (5.0-8.0); Protein,Urine Negative (Negative); Specific Gravity,Urine 1.032 (1.001-1.035); Urobilinogen,Urine <2.0 mg/dL (<2.0)
[2020-12-23 19:11] LABS: ALT 30 U/L (4-49); AST 24 U/L (17-59); African American GFR (CKD) >90 (>60 ml/min/1.73 sqM); Alkaline Phosphatase 116 U/L (38-126); Amylase 40 U/L (30-110); Anion Gap 7 mmol/L; Blood Urea Nitrogen 14 mg/dL (9-20); Calcium 8.7 mg/dL (8.4-10.2); Carbon Dioxide 28 mmol/L (22-30); Chloride 98 mmol/L (98-107); Glucose 494 mg/dL (74-99); Lipase 103 U/L (23-300); Non-African American GFR(CKD) >90 (>60 ml/min/1.73 sqM); Potassium 4.7 mmol/L (3.5-5.1); Sodium 133 mmol/L (137-145); Total Bilirubin 0.5 mg/dL (0.2-1.3); Total Protein 6.1 g/dL (6.3-8.2)
--- NOTE | 2020-12-23 19:21 | XR ---
EXAMINATION TYPE: XR chest 2V DATE OF EXAM: 12/23/2020 COMPARISON: 12/20/2020 HISTORY: Cough TECHNIQUE: 2 views FINDINGS: Heart and mediastinum are normal. Lungs are clear. Diaphragm is normal. Bony thorax appears normal. IMPRESSION: Normal chest. No change.
[2020-12-23 20:38] LABS: Glucose,Whole Blood 375 mg/dL (75-99)
[2020-12-23] MEDS ORDERED: INSULIN ASPART (NovoLOG) 100 UNIT/ML VIAL SQ STA (21:11)
[2020-12-23 21:25] VITALS: BP 125/65; PULSE 93; RESP 18
[2020-12-23 22:02] LABS: Glucose,Whole Blood 380 mg/dL (75-99)
[2020-12-23] MEDS ORDERED: INSULIN REGULAR 100 UNIT/ML VIAL IV STA (22:05)
[2020-12-23] MEDS ORDERED: INSULIN REGULAR 100 UNIT/ML VIAL SQ STA (22:14)
[2020-12-23 22:57] LABS: Glucose,Whole Blood 352 mg/dL (75-99)
== END 2020-12-23 23:09 | disposition home or self-care (01) ==
LOC: EC 18:16
DX: E10.65 Type 1 diabetes mellitus with hyperglycemia (principal); J45.901 Unspecified asthma with (acute) exacerbation; E10.43 Type 1 diabetes mellitus with diabetic autonomic (poly)neuropathy; K31.84 Gastroparesis; Z79.2 Long term (current) use of antibiotics; F17.290 Nicotine dependence, other tobacco product, uncomplicated; Z79.4 Long term (current) use of insulin; Z86.16 Personal history of COVID-19
CPT/HCPCS: 36415; 71046; 80053; 81003; 82009; 82150; 83690; 85025; 96360; 96361; 96372; 99285

== ENCOUNTER 2021-03-15 17:18 | Emergency (ER) | payer OTHER ==
--- NOTE | 2021-03-15 20:02 | ED ---
Male Urogenital HPI - General Chief complaint: Urogenital Stated complaint: Male Time Seen by Provider: 03/15/21 19:35 Source: patient Mode of arrival: ambulatory Limitations: no limitations - History of Present Illness Initial comments: 31-year-old male presents to emergency with chief complaint of testicular pain. Patient reports pain started several days ago. States it is located on his scrotum feels it is small lesion. Patient believes may be an ingrown hair after he was shaving. Reports it is tender to the touch but denies any erythema or discharge from it. He denies any pain in the testicles. Denies any pain in his groin nausea or vomiting. He denies any obstructive or infectious urinary symptoms. Denies scrotal swelling or erythema. Denies any penile discharge. - Related Data Home Medications Medication Instructions Recorded Confirmed Insulin Aspart (For Pump) [NovoLOG 0.01 unit SQ-PUMP CONTINUOUS 12/20/20 12/23/20 (For Pump)] Albuterol Sulfate [Proair Hfa] 1 - 2 puff INHALATION RT-Q4H PRN 12/23/20 12/23/20 Azithromycin [Zithromax Z-pack (6 See Taper PO DAILY 12/23/20 12/23/20 tabs)] Previous Rx's Medication Instructions Recorded predniSONE 50 mg PO DAILY #5 tab 12/20/20 Allergies Allergy/AdvReac Type Severity Reaction Status Date / Time No Known Allergies Allergy Verified 03/15/21 19:11 Review of Systems ROS Statement: Those systems with pertinent positive or pertinent negative responses have been documented in the HPI. ROS Other: All systems not noted in ROS Statement are negative. Past Medical History Past Medical History: Asthma, Diabetes Mellitus, GERD/Reflux Additional Past Medical History / Comment(s): DM type I, gastroparesis, Covid End of Jul 2020 History of Any Multi-Drug Resistant Organisms: None Reported Past Surgical History: Cholecystectomy Past Anesthesia/Blood Transfusion Reactions: Postoperative Nausea & Vomiting (PONV) Additional Past Anesthesia/Blood Transfusion Reaction / Comment(s): Pt has never received blood. Past Psychological History: No Psychological Hx Reported Smoking Status: Vaper Past Alcohol Use History: Occasional Past Drug Use History: Marijuana - Past Family History Father Family Medical History: Diabetes Mellitus, Hypertension Additional Family Medical History / Comment(s): type II diabetes. Mother Family Medical History: COPD Brother(s) Family Medical History: Diabetes Mellitus Additional Family Medical History / Comment(s): IDDM type I Sister(s) Family Medical History: No Reported History General Exam Limitations: no limitations General appearance: alert, in no apparent distress Head exam: Present: atraumatic, normocephalic, normal inspection Eye exam: Present: normal appearance Pupils: Present: normal accommodation ENT exam: Present: normal exam, normal oropharynx, mucous membranes moist Neck exam: Present: normal inspection, full ROM. Absent: tenderness Respiratory exam: Present: normal lung sounds bilaterally. Absent: respiratory distress Cardiovascular Exam: Present: regular rate, normal rhythm, normal heart sounds. Absent: systolic murmur GI/Abdominal exam: Present: soft. Absent: distended, tenderness, guarding, rigid exam: Absent: normal inspection (Small cystic-like lesion on the proximal scrotum a base of the penis.), testicular tenderness, urethral discharge, scrotal swelling, vertical testicular lie, other (No palpable lesions on the groin) Course Vital Signs 03/15/21 03/15/21 19:04 20:55 Temperature 98.1 F 98.0 F Pulse Rate 79 82 Respiratory 18 16 Rate Blood Pressure 119/80 119/73 O2 Sat by Pulse 99 98 Oximetry Medical Decision Making - Medical Decision Making 31-year-old male presents to emergency Department with chief complaint of testicular pain. On physical examination, he has a small cystic lesions on the scrotum. No testicular pain to palpation. Ultrasound of the scrotum is unremarkable. Groin ultrasound reveals a small subcutaneous mass that is nonspecific. Continual surveillance recommended. UA shows glucosuria, patient is a type I diabetic. Advised the patient to follow-up with urologist. Return parameters were thoroughly discussed with patient was standing agreeable. Case discussed with Dr. Higginbotham. - Lab Data Lab Results 03/15/21 Range/Units 19:54 Urine Color Light Yellow Urine Appearance Clear (Clear) Urine pH 6.5 (5.0-8.0) Ur Specific [place] 1.023 (1.001-1.035) Urine Protein Negative (Negative) Urine Glucose (UA) 4+ H (Negative) Urine Ketones Negative (Negative) Urine Blood Negative (Negative) Urine Nitrite Negative (Negative) Urine Bilirubin Negative (Negative) Urine Urobilinogen <2.0 (<2.0) mg/dL Ur Leukocyte Esterase Negative (Negative) Disposition Clinical Impression: Scrotal lesion Disposition: HOME SELF-CARE Condition: Stable Instructions (If sedation given, give patient instructions): Cyst (ED) Additional Instructions: Follow-up with urologist. Return to emergency department if symptoms worsen. Is patient prescribed a controlled substance at d/c from ED?: No Referrals: Brett Miller MD [Primary Care Provider] - 1-2 days Shree Grant MD [STAFF PHYSICIAN] - 1-2 days Time of Disposition: 20:20
[2021-03-15 20:10] LABS: Appearance,Urine Clear (Clear); Bilirubin,Urine Negative (Negative); Blood,Urine Negative (Negative); Color,Urine Light Yellow; Glucose,Urine (UA) 4+ (Negative); Ketones,Urine Negative (Negative); Leukocyte Esterase,Urine Negative (Negative); Nitrite,Urine Negative (Negative); PH, Urine 6.5 (5.0-8.0); Protein,Urine Negative (Negative); Specific Gravity,Urine 1.023 (1.001-1.035); Urobilinogen,Urine <2.0 mg/dL (<2.0)
[2021-03-15 20:57] VITALS: BP 119/73; PULSE 82; RESP 16; TEMP 98
--- NOTE | 2021-03-15 21:19 | US ---
EXAMINATION TYPE: US groin RT DATE OF EXAM: 03/15/2021 COMPARISON: NONE CLINICAL HISTORY: right groin pain. Patient feels palpable lump right groin FINDINGS: At the area of the patient's palpable lump, there is a discrete hypoechoic focus in the immediate sub cutaneous position, measuring 0.4 x 0.3 x 0.4 cm. This finding shows minimal through sound transmissi on and does not demonstrate Doppler hyperperfusion. There are no surrounding findings. No incidentals . IMPRESSION: Nonspecific 4 x 4 by 3 mm subcutaneous focus; would suggest continued clinical surveillance to resolu tion.
--- NOTE | 2021-03-15 21:21 | US ---
EXAMINATION TYPE: US scrotum with doppler. Grayscale and color Doppler Duplex imaging performed of t he scrotum. DATE OF EXAM: 03/15/2021 COMPARISON: NONE CLINICAL HISTORY: testicular pain. EXAM MEASUREMENTS: TESTICLES: Right Testicle: 4.6 x 2.3 x 2.5 cm Left Testicle: 4.4 x 2.4 x 3.0 cm EPIDIDYMIS HEAD: Right Epididymis: 0.7 cm Left Epididymis: 0.9 cm Testicular parenchyma homogeneous bilaterally. Doppler performed to assess for testicular vascularity; good bilateral color flow and waveforms are s een. There is no evidence of testicular torsion. Presence of hydroceles: No Presence of varicoceles: No IMPRESSION: No acute process.
== END 2021-03-15 20:52 | disposition home or self-care (01) ==
LOC: EC 17:18
DX: N50.89 Other specified disorders of the male genital organs (principal); J45.909 Unspecified asthma, uncomplicated; E11.9 Type 2 diabetes mellitus without complications; F17.290 Nicotine dependence, other tobacco product, uncomplicated; Z86.16 Personal history of COVID-19; Z79.2 Long term (current) use of antibiotics; Z79.4 Long term (current) use of insulin
CPT/HCPCS: 76870; 81003; 93975; 99284

== ENCOUNTER 2021-04-08 19:13 | Emergency (ER) | payer OTHER ==
[2021-04-08 19:36] VITALS: BP 118/74; PULSE 90; RESP 18; TEMP 98.1
[2021-04-08] MEDS ORDERED: SODIUM CHLORIDE 0.9% 1,000 ML IV STA (19:46)
[2021-04-08] MEDS ORDERED: guaiFENesin-Coden 100-10MG/5ML 10 ML CUP PO STA (19:47)
--- NOTE | 2021-04-08 19:58 | ED ---
Headache HPI - General Chief Complaint: Headache Stated Complaint: Sinus infection Time Seen by Provider: 04/08/21 19:42 Mode of arrival: ambulatory Limitations: no limitations - History of Present Illness Initial Comments: Patient complains of a frontal headache. He has congestion. He has no chest or belly or back pain. He has no neck pain or stiffness. He has no nausea or vomiting. He has no lightheadedness. He denies injuries. He has no change in vision or hearing. - Related Data Home Medications Medication Instructions Recorded Confirmed Insulin Aspart (For Pump) [NovoLOG 0.01 unit SQ-PUMP CONTINUOUS 12/20/20 12/23/20 (For Pump)] Albuterol Sulfate [Proair Hfa] 1 - 2 puff INHALATION RT-Q4H PRN 12/23/20 12/23/20 Azithromycin [Zithromax Z-pack (6 See Taper PO DAILY 12/23/20 12/23/20 tabs)] Previous Rx's Medication Instructions Recorded predniSONE 50 mg PO DAILY #5 tab 12/20/20 Amoxic-Pot Clav 875-125Mg 1 tab PO BID 10 Days #20 tab 04/08/21 [Augmentin 875-125] Allergies Allergy/AdvReac Type Severity Reaction Status Date / Time No Known Allergies Allergy Verified 04/08/21 19:34 Review of Systems ROS Statement: Those systems with pertinent positive or pertinent negative responses have been documented in the HPI. ROS Other: All systems not noted in ROS Statement are negative. Past Medical History Past Medical History: Asthma, Diabetes Mellitus, GERD/Reflux Additional Past Medical History / Comment(s): DM type I, gastroparesis, Covid End of Jul 2020 History of Any Multi-Drug Resistant Organisms: None Reported Past Surgical History: Cholecystectomy Past Anesthesia/Blood Transfusion Reactions: Postoperative Nausea & Vomiting (PONV) Additional Past Anesthesia/Blood Transfusion Reaction / Comment(s): Pt has never received blood. Past Psychological History: No Psychological Hx Reported Smoking Status: Vaper Past Alcohol Use History: Occasional Past Drug Use History: Marijuana - Past Family History Father Family Medical History: Diabetes Mellitus, Hypertension Additional Family Medical History / Comment(s): type II diabetes. Mother Family Medical History: COPD Brother(s) Family Medical History: Diabetes Mellitus Additional Family Medical History / Comment(s): IDDM type I Sister(s) Family Medical History: No Reported History General Exam Limitations: no limitations General appearance: alert, in no apparent distress Head exam: Present: atraumatic, normocephalic, normal inspection Eye exam: Present: normal appearance, PERRL, EOMI. Absent: scleral icterus, conjunctival injection, periorbital swelling ENT exam: Present: normal exam, mucous membranes moist Neck exam: Present: normal inspection. Absent: tenderness, meningismus, lymphadenopathy Respiratory exam: Present: normal lung sounds bilaterally. Absent: respiratory distress, wheezes, rales, rhonchi, stridor Cardiovascular Exam: Present: regular rate, normal rhythm, normal heart sounds. Absent: systolic murmur, diastolic murmur, rubs, gallop, clicks GI/Abdominal exam: Present: soft, normal bowel sounds. Absent: distended, tenderness, guarding, rebound, rigid Extremities exam: Present: normal inspection, full ROM, normal capillary refill. Absent: tenderness, pedal edema, joint swelling, calf tenderness Back exam: Present: normal inspection Neurological exam: Present: alert, oriented X3, CN II-XII intact Psychiatric exam: Present: normal affect, normal mood Skin exam: Present: warm, dry, intact, normal color. Absent: rash Course Vital Signs 04/08/21 19:34 Temperature 98.1 F Pulse Rate 90 Respiratory 18 Rate Blood Pressure 118/74 O2 Sat by Pulse 98 Oximetry Medical Decision Making - Medical Decision Making Patient is feeling better. His glucose is a little elevated, but he has no evidence of anion gap or DKA. He tolerates oral intake. He is stable for discharge. - Lab Data Result diagrams: 04/08/21 19:49 Lab Results 04/08/21 Range/Units 19:49 Sodium 130 L (137-145) mmol/L Potassium 4.8 (3.5-5.1) mmol/L Chloride 97 L (98-107) mmol/L Carbon Dioxide 25 (22-30) mmol/L Anion Gap 8 mmol/L BUN 20 (9-20) mg/dL Creatinine 1.28 H (0.66-1.25) mg/dL Est GFR (CKD-EPI)AfAm 86 (>60 ml/min/1.73 sqM) Est GFR (CKD-EPI)NonAf 75 (>60 ml/min/1.73 sqM) Glucose 336 H (74-99) mg/dL Calcium 9.0 (8.4-10.2) mg/dL Magnesium 1.5 L (1.6-2.3) mg/dL Disposition Clinical Impression: Dehydration Disposition: HOME SELF-CARE Condition: Good Instructions (If sedation given, give patient instructions): Acute Headache (ED), Dehydration (ED), Sinusitis (ED) Prescriptions: Amoxic-Pot Clav 875-125Mg [Augmentin 875-125] 1 tab PO BID 10 Days #20 tab Is patient prescribed a controlled substance at d/c from ED?: No Referrals: Brett Miller MD [Primary Care Provider] - 1-2 days
[2021-04-08 20:24] LABS: Magnesium 1.5 mg/dL (1.6-2.3); Potassium 4.8 mmol/L (3.5-5.1)
[2021-04-08] MEDS ORDERED: MAGNESIUM OXIDE 400 MG TAB PO STA (20:33)
== END 2021-04-08 20:49 | disposition home or self-care (01) ==
LOC: EC 19:13
DX: E86.0 Dehydration (principal); R51.9 Headache, unspecified; J45.909 Unspecified asthma, uncomplicated; E10.9 Type 1 diabetes mellitus without complications; F17.290 Nicotine dependence, other tobacco product, uncomplicated; Z86.16 Personal history of COVID-19; Z79.4 Long term (current) use of insulin
CPT/HCPCS: 36415; 80048; 83735; 96360; 99284

== ENCOUNTER 2021-04-09 11:57 | Inpatient (IN) | payer OTHER ==
[2021-04-09 12:57] LABS: Glucose,Whole Blood 305 mg/dL (75-99)
[2021-04-09] MEDS ORDERED: SODIUM CHLORIDE 0.9% 1,000 ML IV ONE (13:03)
--- NOTE | 2021-04-09 13:04 | ED ---
General Adult HPI - General Chief complaint: Recheck/Abnormal Lab/Rx Stated complaint: high blood sugar/revisit Time Seen by Provider: 04/09/21 12:56 Source: patient, RN notes reviewed, old records reviewed Mode of arrival: ambulatory Limitations: no limitations - History of Present Illness Initial comments: 31-year-old male history of type 1 diabetes presenting for evaluation of increased blood sugar. Patient had been diagnosed with upper respiratory infection, prescribed antibiotics yesterday. He states that his sugars have been running high despite increased insulin dosing. He does have an insulin pump and a continuous glucose monitor. He states he feels somewhat fatigued and rundown. No reported fever. He states he had coronavirus about 4 months ago. He has not been vaccinated. - Related Data Home Medications Medication Instructions Recorded Confirmed Insulin Aspart (For Pump) [NovoLOG 0.01 unit SQ-PUMP CONTINUOUS 12/20/20 04/09/21 (For Pump)] Doxycycline Hyclate [Vibramycin] 100 mg PO Q12H 04/09/21 04/09/21 Glucagon Emergency Kit 1 mg IM ONCE PRN 04/09/21 04/09/21 Allergies Allergy/AdvReac Type Severity Reaction Status Date / Time No Known Allergies Allergy Verified 04/09/21 13:47 Review of Systems ROS Statement: Those systems with pertinent positive or pertinent negative responses have been documented in the HPI. ROS Other: All systems not noted in ROS Statement are negative. Past Medical History Past Medical History: Asthma, Diabetes Mellitus, GERD/Reflux Additional Past Medical History / Comment(s): DM type I, gastroparesis, Covid End of Jul 2020 History of Any Multi-Drug Resistant Organisms: None Reported Past Surgical History: Cholecystectomy Past Anesthesia/Blood Transfusion Reactions: Postoperative Nausea & Vomiting (PONV) Additional Past Anesthesia/Blood Transfusion Reaction / Comment(s): Pt has never received blood. Past Psychological History: No Psychological Hx Reported Smoking Status: Vaper Past Alcohol Use History: Occasional Past Drug Use History: Marijuana - Past Family History Father Family Medical History: Diabetes Mellitus, Hypertension Additional Family Medical History / Comment(s): type II diabetes. Mother Family Medical History: COPD Brother(s) Family Medical History: Diabetes Mellitus Additional Family Medical History / Comment(s): IDDM type I Sister(s) Family Medical History: No Reported History General Exam Limitations: no limitations General appearance: alert, in no apparent distress Head exam: Present: atraumatic, normocephalic Eye exam: Present: normal appearance, PERRL ENT exam: Present: mucous membranes dry Neck exam: Present: normal inspection. Absent: tenderness, meningismus Respiratory exam: Present: normal lung sounds bilaterally. Absent: respiratory distress, wheezes Cardiovascular Exam: Present: regular rate, normal rhythm GI/Abdominal exam: Present: soft. Absent: distended, tenderness, guarding Extremities exam: Present: normal inspection, normal capillary refill. Absent: pedal edema Neurological exam: Present: alert, oriented X3, CN II-XII intact. Absent: motor sensory deficit Psychiatric exam: Present: normal affect, normal mood Skin exam: Present: warm, dry, intact Course Vital Signs 04/09/21 12:50 Temperature 97.8 F Pulse Rate 98 Respiratory 18 Rate Blood Pressure 130/75 O2 Sat by Pulse 97 Oximetry Medical Decision Making - Medical Decision Making 31-year-old male with type I diabetic presenting with elevated blood sugar, signs of dehydration. Blood sugar on recheck is 3045. He has a mild anion gap acidosis with a CO2 of 21 and an anion gap of 16. He has 4+ ketones in the urine and is acetone positive. This does represent a mild diabetic ketoacidosis. Patient will benefit from continuous IV hydration. I discussed case with Dr. Colón who will admit. - Lab Data Result diagrams: 04/09/21 13:35 04/09/21 13:35 Lab Results 04/09/21 04/09/21 04/09/21 Range/Units 12:55 13:35 13:35 WBC 7.3 (3.8-10.6) k/uL RBC 5.77 (4.30-5.90) m/uL Hgb 17.3 (13.0-17.5) gm/dL Hct 50.0 (39.0-53.0) % MCV 86.7 (80.0-100.0) fL MCH 29.9 (25.0-35.0) pg MCHC 34.5 (31.0-37.0) g/dL RDW 12.5 (11.5-15.5) % Plt Count 206 (150-450) k/uL MPV 8.0 Neutrophils % 69 % Lymphocytes % 20 % Monocytes % 4 % Eosinophils % 5 % Basophils % 1 % Neutrophils # 5.0 (1.3-7.7) k/uL Lymphocytes # 1.4 (1.0-4.8) k/uL Monocytes # 0.3 (0-1.0) k/uL Eosinophils # 0.4 (0-0.7) k/uL Basophils # 0.1 (0-0.2) k/uL Sodium (137-145) mmol/L Potassium (3.5-5.1) mmol/L Chloride (98-107) mmol/L Carbon Dioxide (22-30) mmol/L Anion Gap mmol/L BUN (9-20) mg/dL Creatinine (0.66-1.25) mg/dL Est GFR (CKD-EPI)AfAm (>60 ml/min/1.73 sqM) Est GFR (CKD-EPI)NonAf (>60 ml/min/1.73 sqM) Glucose (74-99) mg/dL POC Glucose (mg/dL) 305 H (75-99) mg/dL POC Glu Claim Investigator ID [id number] Plasma Lactic Acid Elio (0.7-2.0) mmol/L Calcium (8.4-10.2) mg/dL Magnesium (1.6-2.3) mg/dL Total Bilirubin (0.2-1.3) mg/dL AST (17-59) U/L ALT (4-49) U/L Alkaline Phosphatase (38-126) U/L Total Protein (6.3-8.2) g/dL Albumin (3.5-5.0) g/dL Urine Color Light Yellow Urine Appearance Clear (Clear) Urine pH 5.5 (5.0-8.0) Ur Specific [place] 1.026 (1.001-1.035) Urine Protein Negative (Negative) Urine Glucose (UA) 4+ H (Negative) Urine Ketones 4+ H (Negative) Urine Blood Negative (Negative) Urine Nitrite Negative (Negative) Urine Bilirubin Negative (Negative) Urine Urobilinogen <2.0 (<2.0) mg/dL Ur Leukocyte Esterase Negative (Negative) Acetone, Qual (Negative) 04/09/21 04/09/21 Range/Units 13:35 13:35 WBC (3.8-10.6) k/uL RBC (4.30-5.90) m/uL Hgb (13.0-17.5) gm/dL Hct (39.0-53.0) % MCV (80.0-100.0) fL MCH (25.0-35.0) pg MCHC (31.0-37.0) g/dL RDW (11.5-15.5) % Plt Count (150-450) k/uL MPV Neutrophils % % Lymphocytes % % Monocytes % % Eosinophils % % Basophils % % Neutrophils # (1.3-7.7) k/uL Lymphocytes # (1.0-4.8) k/uL Monocytes # (0-1.0) k/uL Eosinophils # (0-0.7) k/uL Basophils # (0-0.2) k/uL Sodium 132 L (137-145) mmol/L Potassium 5.0 (3.5-5.1) mmol/L Chloride 95 L (98-107) mmol/L Carbon Dioxide 21 L (22-30) mmol/L Anion Gap 16 mmol/L BUN 23 H (9-20) mg/dL Creatinine 0.82 (0.66-1.25) mg/dL Est GFR (CKD-EPI)AfAm >90 (>60 ml/min/1.73 sqM) Est GFR (CKD-EPI)NonAf >90 (>60 ml/min/1.73 sqM) Glucose 345 H (74-99) mg/dL POC Glucose (mg/dL) (75-99) mg/dL POC Glu Claim Investigator ID Plasma Lactic Acid Elio 1.1 (0.7-2.0) mmol/L Calcium 9.6 (8.4-10.2) mg/dL Magnesium 1.8 (1.6-2.3) mg/dL Total Bilirubin 1.6 H (0.2-1.3) mg/dL AST 33 (17-59) U/L ALT 44 (4-49) U/L Alkaline Phosphatase 114 (38-126) U/L Total Protein 7.5 (6.3-8.2) g/dL Albumin 4.8 (3.5-5.0) g/dL Urine Color Urine Appearance (Clear) Urine pH (5.0-8.0) Ur Specific [place] (1.001-1.035) Urine Protein (Negative) Urine Glucose (UA) (Negative) Urine Ketones (Negative) Urine Blood (Negative) Urine Nitrite (Negative) Urine Bilirubin (Negative) Urine Urobilinogen (<2.0) mg/dL Ur Leukocyte Esterase (Negative) Acetone, Qual Positive (Negative) Disposition Clinical Impression: Dehydration, Diabetes mellitus type 1, Diabetic ketoacidosis, type I Disposition: ADMITTED IP TO THIS [facility] Condition: Stable Is patient prescribed a controlled substance at d/c from ED?: No Referrals: Brett Miller MD [Primary Care Provider] - 1-2 days Decision to Admit Reason: Admit from EC Decision Date: 04/09/21 Decision Time: 15:22
[2021-04-09 13:50] LABS: Appearance,Urine Clear (Clear); Bilirubin,Urine Negative (Negative); Blood,Urine Negative (Negative); Color,Urine Light Yellow; Glucose,Urine (UA) 4+ (Negative); Leukocyte Esterase,Urine Negative (Negative); Nitrite,Urine Negative (Negative); PH, Urine 5.5 (5.0-8.0); Protein,Urine Negative (Negative); Specific Gravity,Urine 1.026 (1.001-1.035); Urobilinogen,Urine <2.0 mg/dL (<2.0)
[2021-04-09 13:51] LABS: Basophils # (A) 0.1 k/uL (0-0.2); Basophils % (A) 1 %; Eosinophils # (A) 0.4 k/uL (0-0.7); Eosinophils % (A) 5 %; HGB 17.3 gm/dL (13.0-17.5); Lymphocytes # (A) 1.4 k/uL (1.0-4.8); Lymphocytes % (A) 20 %; MCH 29.9 pg (25.0-35.0); MCHC 34.5 g/dL (31.0-37.0); MCV 86.7 fL (80.0-100.0); Monocytes # (A) 0.3 k/uL (0-1.0); Monocytes % (A) 4 %; Neutrophils % (A) 69 %; Platelet Count 206 k/uL (150-450); RBC 5.77 m/uL (4.30-5.90); RDW 12.5 % (11.5-15.5); WBC 7.3 k/uL (3.8-10.6)
[2021-04-09 14:00] LABS: ALT 44 U/L (4-49); AST 33 U/L (17-59); African American GFR (CKD) >90 (>60 ml/min/1.73 sqM); Albumin 4.8 g/dL (3.5-5.0); Alkaline Phosphatase 114 U/L (38-126); Anion Gap 16 mmol/L; Blood Urea Nitrogen 23 mg/dL (9-20); Calcium 9.6 mg/dL (8.4-10.2); Carbon Dioxide 21 mmol/L (22-30); Chloride 95 mmol/L (98-107); Glucose 345 mg/dL (74-99); Magnesium 1.8 mg/dL (1.6-2.3); Non-African American GFR(CKD) >90 (>60 ml/min/1.73 sqM); Sodium 132 mmol/L (137-145); Total Bilirubin 1.6 mg/dL (0.2-1.3); Total Protein 7.5 g/dL (6.3-8.2)
[2021-04-09] MEDS ORDERED: SODIUM CHLORIDE 0.9% 500 ML 500 ML IV ONE ×3 (14:07→15:22)
[2021-04-09 14:10] LABS: Ketones,Urine 4+ (Negative)
[2021-04-09] MEDS ORDERED: NALOXONE 0.4 MG/ML 1 ML VIAL IV PRN (15:20)
[2021-04-09] MEDS ORDERED: ACETAMINOPHEN TAB 325 MG TAB PO PRN (15:20)
[2021-04-09] MEDS: SODIUM CHLORIDE 0.9% 1,000 ML IV SCH (16:22)
[2021-04-09 16:36] LABS: Glucose,Whole Blood 278 mg/dL (75-99)
[2021-04-10 05:23] LABS: Glucose,Whole Blood 68 mg/dL (75-99)
[2021-04-10] MEDS: SODIUM CHLORIDE 0.9% 1,000 ML IV SCH ×3 (05:25→23:03)
[2021-04-10 09:22] LABS: Glucose,Whole Blood 147 mg/dL (75-99)
[2021-04-10 10:00] LABS: HCT 42.1 % (39.0-53.0); HGB 14.6 gm/dL (13.0-17.5); Hyperchromasia Slight; MCH 29.9 pg (25.0-35.0); MCHC 34.7 g/dL (31.0-37.0); MCV 86.3 fL (80.0-100.0); Mean Platelet Volume 7.7; Platelet Count 204 k/uL (150-450); RBC 4.88 m/uL (4.30-5.90); RDW 12.6 % (11.5-15.5); WBC 8.5 k/uL (3.8-10.6)
[2021-04-10 10:23] LABS: ALT 30 U/L (4-49); AST 25 U/L (17-59); African American GFR (CKD) >90 (>60 ml/min/1.73 sqM); Albumin 3.7 g/dL (3.5-5.0); Albumin/Globulin Ratio 1.6; Alkaline Phosphatase 76 U/L (38-126); Anion Gap 9 mmol/L; Blood Urea Nitrogen 13 mg/dL (9-20); Calcium 8.7 mg/dL (8.4-10.2); Carbon Dioxide 22 mmol/L (22-30); Chloride 104 mmol/L (98-107); Globulin 2.3 g/dL; Glucose 180 mg/dL (74-99); Non-African American GFR(CKD) >90 (>60 ml/min/1.73 sqM); Sodium 135 mmol/L (137-145); Total Bilirubin 0.9 mg/dL (0.2-1.3)
--- NOTE | 2021-04-10 12:24 | P.HPIM ---
History of Present Illness H&P Date: 04/10/21 HISTORY OF PRESENT ILLNESS This is a 31-year-old male patient of Dr. Miller with past medical history of diabetes mellitus type 1 since age 17, mild intermittent asthma with no recent exacerbations, gastroesophageal reflux disease, gastroparesis, Covid 19 infection July 2020. Patient was recently seen in the emergency center on April 08 was diagnosed with dehydration and sinusitis and placed on Augmentin for 10 day course. Patient states he subsequently developed nausea without vomiting without diarrhea but decreased appetite. He states he was taking Excedrin for headache. He denies any blood in his stool. Patient return to the emergency center due to increased blood sugar and found to be 345 with mild anion gap acidosis with CO2 of 21 and anion gap of 16. Urine had 4+ ketones and acetone positive. Urinalysis was negative for infection. Lactic acid 1.1. Sodium 132, potassium 5.0, chloride 95, CO2 21, BUN 23 creatinine 0.82. Liver function tests were normal. Patient was given 2 L of IV fluid and continued on 0.9 normal saline at 100 mL per hour. She utilizes [employer] glucose monitoring system. He states his blood sugars have been running in the 300s to 400s. Patient also has insulin pump. REVIEW OF SYSTEMS Constitutional: No fever, no chills, no night sweats. No weight change. No weakness, fatigue or lethargy. No daytime sleepiness. EENT: No headache. No blurred vision or double vision, no loss of vision. No loss of Hearing, no ringing in the ears, no dizziness. No nasal drainage or congestion. No epistaxis. No sore throat. Lungs: No shortness of breath, cough, no sputum production. No wheezing. Cardiovascular: No chest pain, no lower extremity edema. No palpitations. No paroxysmal nocturnal dyspnea. No orthopnea. No lightheadedness or dizziness. No syncopal episodes. Abdominal: No abdominal pain. Reports nausea, denies vomiting. No diarrhea. No constipation. No bloody or tarry stools. Reports loss of appetite. Genitourinary: No dysuria, increased frequency, urgency. No urinary retention. Musculoskeletal: No myalgias. No muscle weakness, no gait dysfunction, no renée quent falls. No back pain. No neck pain. Integumentary: No wounds, no lesions. No rash or pruritus. No unusual bruising. No change in hair or nails. Neurologic: No aphasia. No facial droop. No change in mentation. No head injury. No headache. No paralysis. No paresthesia. Psychiatric: No depression. No anxiety. No mood swings. Endocrine: Reports abnormal blood sugars. SOCIAL HISTORY Patient states he was a smoker for 3 years only. He denies any marijuana use. No street drug use. No alcohol use. He works at [employer] and see.. FAMILY HISTORY Mother is alive at age 71 with no history of diabetes. Father at age 69 with history of coronary artery disease. Patient has 2 brothers and one has type 1 diabetes and one has history of coronary artery disease. Patient is one sister with no major medical problems. Patient does not have children. PHYSICAL EXAMINATION Gen: This is a 31 year old obese male, resting the ER stretcher and appears to be comfortable and in no acute distress. HEENT: Head is atraumatic, normocephalic. Pupils equal, round. Sclerae is anicteric. NECK: Supple. No JVD. No lymphadenopathy. No thyromegaly. LUNGS: Clear to auscultation. No wheezes or rhonchi. No intercostal retra ctions. HEART: Regular rate and rhythm. No murmur. ABDOMEN: Soft. Bowel sounds are present. No masses. No tenderness. EXTREMITIES: No pedal edema. No calf tenderness. NEUROLOGICAL: Patient is awake, alert and oriented x3. Cranial nerves 2 through 12 are grossly intact. ASSESSMENT AND PLAN 1. Diabetic ketoacidosis. Continue IV fluids 0.9 normal saline at 100 mL per ho ur, continue close monitoring of blood sugars, continue insulin pump. 2. Dehydration secondary to diabetic ketoacidosis. Continue IV fluids 3. Hyponatremia secondary to hyperglycemia. Treat hyperglycemia. 4. Diabetes mellitus type 1, uncontrolled with hyperglycemia. 5. Diabetic gastroparesis, stable. 6. Gastroesophageal reflux disease. 7. Recent treatment for sinus infection. 8. Mild intermittent asthma, stable without exacerbation. 9. COVID-19 testing negative. Patient has been hospitalized during a pandemic. Patient will be admitted to the hospital for a minimum of 2 night stay. DISCHARGE PLAN Home. Impression and plan of care have been directed as dictated by the signing physician. Madison Gu nurse practitioner acting as scribe for signing physi adelina. Past Medical History Past Medical History: Asthma, Diabetes Mellitus, GERD/Reflux Additional Past Medical History / Comment(s): DM type I, gastroparesis, Covid End of Jul 2020 History of Any Multi-Drug Resistant Organisms: None Reported Past Surgical History: Cholecystectomy Past Anesthesia/Blood Transfusion Reactions: Postoperative Nausea & Vomiting ( PONV) Additional Past Anesthesia/Blood Transfusion Reaction / Comment(s): Pt has never received blood. Past Psychological History: No Psychological Hx Reported Smoking Status: Vaper Past Alcohol Use History: Occasional Past Drug Use History: Marijuana - Past Family History Father Family Medical History: Diabetes Mellitus, Hypertension Additional Family Medical History / Comment(s): type II diabetes. Mother Family Medical History: COPD Brother(s) Family Medical History: Diabetes Mellitus Additional Family Medical History / Comment(s): IDDM type I Sister(s) Family Medical History: No Reported History Medications and Allergies Home Medications Medication Instructions Recorded Confirmed Type Insulin Aspart (For Pump) [NovoLOG 0.01 unit SQ-PUMP CONTINUOUS 12/20/20 04/09/21 History (For Pump)] Doxycycline Hyclate [Vibramycin] 100 mg PO Q12H 04/09/21 04/09/21 History Glucagon Emergency Kit 1 mg IM ONCE PRN 04/09/21 04/09/21 History Allergies Allergy/AdvReac Type Severity Reaction Status Date / Time No Known Allergies Allergy Verified 04/09/21 13:47 Physical Exam Vitals: Vital Signs Temp Pulse Resp BP Pulse Ox 04/10/21 05:00 91 18 126/76 96 04/10/21 03:00 70 15 119/77 96 04/09/21 23:00 91 18 119/77 98 04/09/21 18:00 99 18 113/71 99 04/09/21 16:18 89 18 113/71 99 04/09/21 12:50 97.8 F 98 18 130/75 97 Results CBC & Chem 7: 04/10/21 09:41 04/10/21 09:41 Labs: Abnormal Lab Results - Last 24 Hours (Table) 04/09/21 04/09/21 04/09/21 Range/Units 12:55 13:35 13:35 Sodium 132 L (137-145) mmol/L Chloride 95 L (98-107) mmol/L Carbon Dioxide 21 L (22-30) mmol/L BUN 23 H (9-20) mg/dL Glucose 345 H (74-99) mg/dL POC Glucose (mg/dL) 305 H (75-99) mg/dL Total Bilirubin 1.6 H (0.2-1.3) mg/dL Urine Glucose (UA) 4+ H (Negative) Urine Ketones 4+ H (Negative) 04/09/21 04/10/21 04/10/21 Range/Units 16:24 05:22 09:20 Sodium (137-145) mmol/L Chloride (98-107) mmol/L Carbon Dioxide (22-30) mmol/L BUN (9-20) mg/dL Glucose (74-99) mg/dL POC Glucose (mg/dL) 278 H 68 L 147 H (75-99) mg/dL Total Bilirubin (0.2-1.3) mg/dL Urine Glucose (UA) (Negative) Urine Ketones (Negative)
[2021-04-10 17:41] LABS: Glucose,Whole Blood 224 mg/dL (75-99)
[2021-04-10] MEDS ORDERED: INSULIN PUMP BASAL RATES 1 EACH MISC MISCELLANE PRN (20:30)
[2021-04-10] MEDS ORDERED: INSPUCOR MISCELLANE PRN (20:30)
[2021-04-10] MEDS: INSULIN PUMP MEAL BOLUS 1 UNIT MISC MISCELLANE SCH (23:01)
[2021-04-11 07:03] VITALS: BP 116/71; PULSE 80; RESP 14; TEMP 97.6
[2021-04-11] MEDS: INSULIN PUMP MEAL BOLUS 1 UNIT MISC MISCELLANE SCH ×2 (08:08→13:22)
[2021-04-11] MEDS: SODIUM CHLORIDE 0.9% 1,000 ML IV SCH (08:08)
--- NOTE | 2021-04-11 09:56 | P.DS ---
Providers Date of admission: 04/09/21 15:21 Expected date of discharge: 04/11/21 Attending physician: Robyn Colón Primary care physician: Brett Miller [facility] Course: HISTORY OF PRESENT ILLNESS This is a 31-year-old male patient of Dr. Miller with past medical history of diabetes mellitus type 1 since age 17, mild intermittent asthma with no recent exacerbations, gastroesophageal reflux disease, gastroparesis, Covid 19 infection July 2020. Patient was recently seen in the emergency center on April 08 was diagnosed with dehydration and sinusitis and placed on Augmentin for 10 day course. Patient states he subsequently developed nausea without vomiting without diarrhea but decreased appetite. He states he was taking Excedrin for headache. He denies any blood in his stool. Patient return to the emergency center due to increased blood sugar and found to be 345 with mild anion gap acidosis with CO2 of 21 and anion gap of 16. Urine had 4+ ketones and acetone positive. Urinalysis was negative for infection. Lactic acid 1.1. Sodium 132, potassium 5.0, chloride 95, CO2 21, BUN 23 creatinine 0.82. Liver function tests were normal. Patient was given 2 L of IV fluid and continued on 0.9 normal saline at 100 mL per hour. She utilizes [employer] glucose monitoring system. He states his blood sugars have been running in the 300s to 400s. Patient also has insulin pump. 04/11: Patient states he had some nausea this morning but otherwise feeling a lot better. His been advised to follow a low-fat diet. Repeat blood work reveals sodium of 133 otherwise electrolytes and renal function normal. Blood sugar 355. Lipase 42. Acetone negative. Patient has been instructed to follow-up with Dr. Yessenia Rosentahl regarding his diabetes management. Patient discharged home in stable condition. DISCHARGE DIAGNOSES 1. Diabetic ketoacidosis. 2. Dehydration secondary to diabetic ketoacidosis. 3. Hyponatremia secondary to hyperglycemia. 4. Diabetes mellitus type 1, uncontrolled with hyperglycemia. 5. Diabetic gastroparesis, stable. 6. Gastroesophageal reflux disease. 7. Recent treatment for sinus infection. 8. Mild intermittent asthma, stable without exacerbation. 9. COVID-19 testing negative. DISCHARGE PLAN Home. Impression and plan of care have been directed as dictated by the signing physician. Madison Gu nurse practitioner acting as scribe for signing physician. Patient Condition at Discharge: Stable Plan - Discharge Summary Discharge Rx Participant: No New Discharge Prescriptions: New Famotidine [Pepcid] 20 mg PO DAILY #30 tab Continue Insulin Aspart (For Pump) [NovoLOG (For Pump)] 0.01 unit SQ-PUMP CONTINUOUS Doxycycline Hyclate [Vibramycin] 100 mg PO Q12H Glucagon Emergency Kit 1 mg IM ONCE PRN PRN Reason: Blood Sugar - Low Discharge Medication List Insulin Aspart (For Pump) [NovoLOG (For Pump)] 0.01 unit SQ-PUMP CONTINUOUS 12/20/20 [History] Doxycycline Hyclate [Vibramycin] 100 mg PO Q12H 04/09/21 [History] Glucagon Emergency Kit 1 mg IM ONCE PRN 04/09/21 [History] Famotidine [Pepcid] 20 mg PO DAILY #30 tab 04/11/21 [Rx] Follow up Appointment(s)/Referral(s): Ugo Rosenthal MD [REFERRING] - 04/18/21 8:00 am Brett Miller MD [Primary Care Provider] - 04/18/21 1:15 pm Patient Instructions/Handouts: Diabetic Ketoacidosis (DC) Activity/Diet/Wound Care/Special Instructions: Outpatient Diabeties classes can be scheduled through [facility]. They can be contacted at [phone]. Discharge/Stand Alone Forms: Work/Release Restrictions Form Discharge Disposition: HOME SELF-CARE
[2021-04-11] MEDS ORDERED: FAMOTIDINE 20 MG TAB PO SCH (10:00)
[2021-04-11 11:59] LABS: African American GFR (CKD) >90 (>60 ml/min/1.73 sqM); Anion Gap 6 mmol/L; Blood Urea Nitrogen 12 mg/dL (9-20); Calcium 8.9 mg/dL (8.4-10.2); Carbon Dioxide 25 mmol/L (22-30); Chloride 102 mmol/L (98-107); Glucose 355 mg/dL (74-99); Lipase 42 U/L (23-300); Non-African American GFR(CKD) >90 (>60 ml/min/1.73 sqM); Potassium 4.1 mmol/L (3.5-5.1); Sodium 133 mmol/L (137-145)
== END 2021-04-11 14:20 | disposition home or self-care (01) | DRG 638 ==
LOC: EC 11:57 → 5NMEDONC 15:21 → 4SSUR 04-10 17:31
PROVIDERS: ADMIT Family Medicine; ATTEND Family Medicine
DX: E10.10 Type 1 diabetes mellitus with ketoacidosis without coma (principal); E87.1 Hypo-osmolality and hyponatremia; E10.43 Type 1 diabetes mellitus with diabetic autonomic (poly)neuropathy; E86.0 Dehydration; J45.20 Mild intermittent asthma, uncomplicated; K21.9 Gastro-esophageal reflux disease without esophagitis; J32.9 Chronic sinusitis, unspecified; K31.84 Gastroparesis; Z20.822 Contact with and (suspected) exposure to COVID-19; R11.0 Nausea; Z86.16 Personal history of COVID-19; Z79.4 Long term (current) use of insulin; Z96.41 Presence of insulin pump (external) (internal); Z82.49 Family history of ischemic heart disease and other diseases of the circulatory system; Z82.5 Family history of asthma and other chronic lower respiratory diseases; Z83.3 Family history of diabetes mellitus; Z87.891 Personal history of nicotine dependence; Z90.49 Acquired absence of other specified parts of digestive tract
CPT/HCPCS: 36415; 80048; 80053; 81003; 82009; 83036; 83605; 83690; 83735; 85025; 85027; 87635; 96360; 96361; 99285

== ENCOUNTER 2021-05-01 18:28 | Emergency (ER) | payer OTHER ==
[2021-05-01 18:59] VITALS: RESP 18; TEMP 98.2
[2021-05-01] MEDS ORDERED: KETOROLAC 15 MG/ML 1 ML VIAL IM STA (20:43)
--- NOTE | 2021-05-01 21:30 | ED ---
Skin/Abscess/FB HPI - General Chief complaint: Skin/Abscess/Foreign Body Stated complaint: ingrown finger nail Time Seen by Provider: 05/01/21 20:38 Source: patient Mode of arrival: ambulatory Limitations: no limitations - History of Present Illness Initial comments: 31 year-old male patient with history of Type I diabetes presents to the emergency department for evaluation of right middle finger pain and redness. States it has been hurting for the last several days. He initially thought he jammed it but now it is red and is becoming more painful. He denies any fever or chills. Denies any drainage from the area. - Related Data Home Medications Medication Instructions Recorded Confirmed Insulin Aspart (For Pump) [NovoLOG 0.01 unit SQ-PUMP CONTINUOUS 12/20/20 04/09/21 (For Pump)] Doxycycline Hyclate [Vibramycin] 100 mg PO Q12H 04/09/21 04/09/21 Glucagon Emergency Kit 1 mg IM ONCE PRN 04/09/21 04/09/21 Previous Rx's Medication Instructions Recorded Famotidine [Pepcid] 20 mg PO DAILY #30 tab 04/11/21 Amoxic-Pot Clav 875-125Mg 1 tab PO 12 #20 tablet 05/01/21 [Augmentin 875-125] Allergies Allergy/AdvReac Type Severity Reaction Status Date / Time No Known Allergies Allergy Verified 05/01/21 18:59 Review of Systems ROS Statement: Those systems with pertinent positive or pertinent negative responses have been documented in the HPI. ROS Other: All systems not noted in ROS Statement are negative. Past Medical History Past Medical History: Asthma, Diabetes Mellitus, GERD/Reflux Additional Past Medical History / Comment(s): DM type I, gastroparesis, Covid End of Jul 2020 History of Any Multi-Drug Resistant Organisms: None Reported Past Surgical History: Cholecystectomy Past Anesthesia/Blood Transfusion Reactions: Postoperative Nausea & Vomiting (PONV) Additional Past Anesthesia/Blood Transfusion Reaction / Comment(s): Pt has never received blood. Past Psychological History: No Psychological Hx Reported Smoking Status: Vaper Past Alcohol Use History: Occasional Past Drug Use History: Marijuana - Past Family History Father Family Medical History: Diabetes Mellitus, Hypertension Additional Family Medical History / Comment(s): type II diabetes. Mother Family Medical History: COPD Brother(s) Family Medical History: Diabetes Mellitus Additional Family Medical History / Comment(s): IDDM type I Sister(s) Family Medical History: No Reported History General Exam Limitations: no limitations General appearance: alert, in no apparent distress, other (This is a well- developed, well-nourished adult male patient in no acute distress.) Respiratory exam: Present: normal lung sounds bilaterally. Absent: respiratory distress, wheezes, rales, rhonchi, stridor Cardiovascular Exam: Present: regular rate, normal rhythm, normal heart sounds. Absent: systolic murmur, diastolic murmur, rubs, gallop, clicks Extremities exam: Present: full ROM, normal capillary refill, other (There is mild erythema and soft tissue swelling over the proximal nail fold in the right middle finger. ). Absent: tenderness, pedal edema, joint swelling, calf tenderness Neurological exam: Present: alert, oriented X3, CN II-XII intact Psychiatric exam: Present: normal affect, normal mood Skin exam: Present: warm, dry, intact, normal color. Absent: rash Course Vital Signs 05/01/21 05/01/21 18:56 21:50 Temperature 98.2 F Pulse Rate 89 86 Respiratory 18 18 Rate Blood Pressure 125/77 119/80 O2 Sat by Pulse 98 100 Oximetry Medical Decision Making - Medical Decision Making 31-year-old male patient presented to the emergency department today for evaluation of right middle finger pain and swelling. Physical examination did reveal erythema and swelling surrounding the proximal nail fold on the right middle finger. The finger pad was soft. X-ray was obtained and showed no evidence for fracture. He was started on antibiotics for paronychia. This does not appear drainable at this time. He does have type 1 diabetes. He'll be discharged follow up with his primary care physician for recheck in 1-2 days. Return parameters were discussed in detail. He verbalizes understanding and agrees with this plan. My attending is Dr. Nevarez. - Radiology Data Radiology results: report reviewed, image reviewed 3 views of the right middle finger obtained. Report was reviewed in its entirety. Impression by Dr. George shows negative right middle finger exam. No fracture. Disposition Clinical Impression: Paronychia of right middle finger Disposition: HOME SELF-CARE Condition: Good Instructions (If sedation given, give patient instructions): Paronychia (ED) Additional Instructions: Warm soaks at least 20 minutes at a time 4-5 times per day. Apply triple antibiotic ointment to get this [id number]. Complete antibiotic prescription in full. Prescriptions: Amoxic-Pot Clav 875-125Mg [Augmentin 875-125] 1 tab PO 12 #20 tablet Is patient prescribed a controlled substance at d/c from ED?: No Referrals: Brett Miller MD [Primary Care Provider] - 1-2 days Time of Disposition: 21:58
[2021-05-01 21:52] VITALS: BP 119/80; PULSE 86
[2021-05-01] MEDS ORDERED: AMOXIC-POT CLAV 875MG STARTER PACK 2 TAB BTL PO STA (21:56)
[2021-05-01] MEDS ORDERED: BACITRACIN OINT 1 EACH PACKET TOPICAL STA (21:57)
--- NOTE | 2021-05-01 22:21 | XR ---
EXAMINATION TYPE: XR finger RT DATE OF EXAM: 05/01/2021 COMPARISON: NONE HISTORY: Pain TECHNIQUE: 3 view FINDINGS: I see no fracture nor dislocation. Joint spaces are normal. IMPRESSION: Negative right middle finger exam. No fracture.
== END 2021-05-01 22:19 | disposition home or self-care (01) ==
LOC: EC 18:28
DX: L03.011 Cellulitis of right finger (principal); J45.909 Unspecified asthma, uncomplicated; E11.9 Type 2 diabetes mellitus without complications; F17.290 Nicotine dependence, other tobacco product, uncomplicated; Z79.4 Long term (current) use of insulin
CPT/HCPCS: 73140; 99283; 96372; J1885

== ENCOUNTER 2021-06-14 10:27 | Emergency (ER) | payer OTHER ==
[2021-06-14] MEDS ORDERED: ORPHENADRINE 30 MG/ML 2 ML VIAL IM STA (11:35)
--- NOTE | 2021-06-14 11:37 | ED ---
General Adult HPI - General Chief complaint: Upper Respiratory Infection Stated complaint: Neck pain/sinus pain/aches Time Seen by Provider: 06/14/21 11:15 Source: patient, RN notes reviewed Limitations: no limitations - History of Present Illness Initial comments: 31-year-old male with a past medical history of asthma, type 1 diabetes, GERD, gastroparesis presents to the emergency room for a chief complaint of headaches. Patient has had headaches for one month now. States that they seem to come and go. States that sometimes his neck hurts with these as well. Patient has been following with his primary care provider for this. They want him to get physical therapy. However he called office again today because symptoms are not improving although he has not started physical therapy and his doctor told him just to come to the emergency room. Patient denies any fevers. Denies any loss of consciousness.Patient has no other complaints at this time including shortne ss of breath, chest pain, abdominal pain, nausea or vomiting, headache, or visual changes. - Related Data Home Medications Medication Instructions Recorded Confirmed Insulin Aspart (For Pump) [NovoLOG 0.01 unit SQ-PUMP CONTINUOUS 12/20/20 04/09/21 (For Pump)] Doxycycline Hyclate [Vibramycin] 100 mg PO Q12H 04/09/21 04/09/21 Glucagon Emergency Kit 1 mg IM ONCE PRN 04/09/21 04/09/21 Previous Rx's Medication Instructions Recorded Famotidine [Pepcid] 20 mg PO DAILY #30 tab 04/11/21 Amoxic-Pot Clav 875-125Mg 1 tab PO 12 #20 tablet 05/01/21 [Augmentin 875-125] Cyclobenzaprine [Flexeril] 10 mg PO TID #14 tab 06/14/21 Allergies Allergy/AdvReac Type Severity Reaction Status Date / Time No Known Allergies Allergy Verified 06/14/21 10:44 Review of Systems ROS Statement: Those systems with pertinent positive or pertinent negative responses have been documented in the HPI. ROS Other: All systems not noted in ROS Statement are negative. Past Medical History Past Medical History: Asthma, Diabetes Mellitus, GERD/Reflux Additional Past Medical History / Comment(s): DM type I, gastroparesis, Covid End of Jul 2020 History of Any Multi-Drug Resistant Organisms: None Reported Past Surgical History: Cholecystectomy Past Anesthesia/Blood Transfusion Reactions: Postoperative Nausea & Vomiting (PONV) Additional Past Anesthesia/Blood Transfusion Reaction / Comment(s): Pt has never received blood. Past Psychological History: No Psychological Hx Reported Smoking Status: Vaper Past Alcohol Use History: Occasional Past Drug Use History: Marijuana - Past Family History Father Family Medical History: Diabetes Mellitus, Hypertension Additional Family Medical History / Comment(s): type II diabetes. Mother Family Medical History: COPD Brother(s) Family Medical History: Diabetes Mellitus Additional Family Medical History / Comment(s): IDDM type I Sister(s) Family Medical History: No Reported History General Exam Limitations: no limitations General appearance: alert, in no apparent distress Head exam: Present: atraumatic Eye exam: Present: normal appearance, PERRL, EOMI. Absent: scleral icterus, conjunctival injection ENT exam: Present: normal exam, mucous membranes moist Neck exam: Present: normal inspection, tenderness (Mild paraspinal cervical tenderness bilaterally, no midline tenderness), full ROM. Absent: meningismus Respiratory exam: Present: normal lung sounds bilaterally. Absent: respiratory distress, wheezes Cardiovascular Exam: Present: regular rate, normal rhythm, normal heart sounds GI/Abdominal exam: Present: soft, normal bowel sounds. Absent: distended, tenderness Neurological exam: Present: alert Course Vital Signs 06/14/21 10:43 Temperature 98.8 F Pulse Rate 85 Respiratory 20 Rate Blood Pressure 137/85 O2 Sat by Pulse 99 Oximetry Medical Decision Making - Medical Decision Making Vitals are stable. No focal neurologic deficits. CT brain shows no acute intracranial process. At this time I do not see an emergent cause of headache or neck pain. We will try muscle relaxers and anti-inflammatories. He will continue to follow up with his doctor who is supposed to be sitting up physical therapy. He will return here for any worsening symptoms. Disposition Clinical Impression: Headache Disposition: HOME SELF-CARE Condition: Good Instructions (If sedation given, give patient instructions): Acute Headache (ED) Additional Instructions: Please follow-up with your doctor. Try muscle relaxers and anti-inflammatory such as Motrin or Tylenol. Do not drive while taking muscle relaxers. Return to the emergency room for any worsening symptoms. Prescriptions: Cyclobenzaprine [Flexeril] 10 mg PO TID #14 tab Is patient prescribed a controlled substance at d/c from ED?: No Referrals: Brett Miller MD [Primary Care Provider] - 1-2 days Time of Disposition: 12:50
--- NOTE | 2021-06-14 12:11 | CT ---
EXAMINATION TYPE: CT brain wo con DATE OF EXAM: 06/14/2021 COMPARISON: None HISTORY: Headaches x [address] DLP: 1142.[address] of the brain was performed. The ventricles, basal cisterns and sulci overlying the cerebral convexities demonstrate a normal appe arance. There is no evidence for intracranial hemorrhage or sulcal effacement. No mass effects are seen. Osseous calvarium is intact. If symptoms persist consider MRI as clinically warranted. IMPRESSION: 1. No acute intracranial process is seen at this time.
[2021-06-14] MEDS ORDERED: KETOROLAC 30 MG/ML 1 ML VIAL IM STA (12:24)
[2021-06-14 13:08] VITALS: BP 128/70; PULSE 78; RESP 16; TEMP 98.2
== END 2021-06-14 13:07 | disposition home or self-care (01) ==
LOC: EC 10:27
DX: R51.9 Headache, unspecified (principal); F17.290 Nicotine dependence, other tobacco product, uncomplicated; E10.43 Type 1 diabetes mellitus with diabetic autonomic (poly)neuropathy; K31.84 Gastroparesis; J45.909 Unspecified asthma, uncomplicated; Z86.16 Personal history of COVID-19; Z96.41 Presence of insulin pump (external) (internal)
CPT/HCPCS: 87635; 70450; 99284; 96372; J2360; J1885

== ENCOUNTER 2021-07-11 17:44 | Emergency (ER) | payer OTHER ==
[2021-07-11] MEDS ORDERED: IBUPROFEN 600 MG TAB PO STA (22:04)
[2021-07-11] MEDS ORDERED: guaiFENesin-DM 600/30MG 1 EACH TAB.ER.12H PO STA (22:04)
--- NOTE | 2021-07-11 22:24 | ED ---
General Adult HPI - General Chief complaint: Upper Respiratory Infection Stated complaint: Upper Resp Time Seen by Provider: 07/11/21 21:48 Source: patient Mode of arrival: ambulatory Limitations: no limitations - History of Present Illness Initial comments: This 31 year old male presents to the emergency department stating he has had headache, congestion, body aches, nausea and episodes of shortness of breath 3 days. Patient states the symptoms come and go. His pain is 3 out of 10. He denies any chest pain, abdominal pain, double or blurred vision, fever or chills. - Related Data Home Medications Medication Instructions Recorded Confirmed Insulin Aspart (For Pump) [NovoLOG 0.01 unit SQ-PUMP CONTINUOUS 12/20/20 04/09/21 (For Pump)] Doxycycline Hyclate [Vibramycin] 100 mg PO Q12H 04/09/21 04/09/21 Glucagon Emergency Kit 1 mg IM ONCE PRN 04/09/21 04/09/21 Previous Rx's Medication Instructions Recorded Famotidine [Pepcid] 20 mg PO DAILY #30 tab 04/11/21 Amoxic-Pot Clav 875-125Mg 1 tab PO 12 #20 tablet 05/01/21 [Augmentin 875-125] Cyclobenzaprine [Flexeril] 10 mg PO TID #14 tab 06/14/21 Allergies Allergy/AdvReac Type Severity Reaction Status Date / Time No Known Allergies Allergy Verified 07/11/21 19:01 Review of Systems ROS Statement: Those systems with pertinent positive or pertinent negative responses have been documented in the HPI. ROS Other: All systems not noted in ROS Statement are negative. Past Medical History Past Medical History: Asthma, Diabetes Mellitus, GERD/Reflux Additional Past Medical History / Comment(s): DM type I, gastroparesis, Covid End of Jul 2020 History of Any Multi-Drug Resistant Organisms: None Reported Past Surgical History: Cholecystectomy Past Anesthesia/Blood Transfusion Reactions: Postoperative Nausea & Vomiting (PONV) Additional Past Anesthesia/Blood Transfusion Reaction / Comment(s): Pt has never received blood. Past Psychological History: No Psychological Hx Reported Smoking Status: Vaper Past Alcohol Use History: Occasional Past Drug Use History: Marijuana - Past Family History Father Family Medical History: Diabetes Mellitus, Hypertension Additional Family Medical History / Comment(s): type II diabetes. Mother Family Medical History: COPD Brother(s) Family Medical History: Diabetes Mellitus Additional Family Medical History / Comment(s): IDDM type I Sister(s) Family Medical History: No Reported History General Exam Limitations: no limitations General appearance: alert, in no apparent distress Head exam: Present: atraumatic, normocephalic, normal inspection Eye exam: Present: normal appearance, PERRL, EOMI. Absent: scleral icterus, conjunctival injection, periorbital swelling ENT exam: Present: normal exam, mucous membranes moist Respiratory exam: Present: normal lung sounds bilaterally. Absent: respiratory distress, wheezes, rales, rhonchi, stridor Cardiovascular Exam: Present: regular rate, normal rhythm, normal heart sounds. Absent: systolic murmur, diastolic murmur, rubs, gallop, clicks GI/Abdominal exam: Present: soft, normal bowel sounds. Absent: distended, tenderness, guarding, rebound, rigid Back exam: Present: normal inspection, full ROM Neurological exam: Present: alert, oriented X3, CN II-XII intact Psychiatric exam: Present: normal affect, normal mood Skin exam: Present: warm, dry, intact, normal color. Absent: rash Course Vital Signs 07/11/21 19:01 Temperature 98.4 F Pulse Rate 86 Respiratory 20 Rate Blood Pressure 132/81 O2 Sat by Pulse 98 Oximetry Medical Decision Making - Medical Decision Making This 31-year-old male presents the emergency department with body aches, headache, congestion 3 days. COVID-19 negative. He states after motrin and mucinex, headache and congestion have decreased and he feels his symptoms have improved but states he is still tired. Brain CT from [id number] was obtained due to headaches and showed no acute intracranial process seen. Strict return precautions discussed. Patient sent home in stable condition. - Lab Data Lab Results 07/11/21 07/11/21 Range/Units 19:04 22:01 Coronavirus (PCR) Not Detected (Not Detectd) Influenza Type A RNA Not Detected (Not Detectd) Influenza Type B (PCR) Not Detected (Not Detectd) Disposition Clinical Impression: Viral upper respiratory infection Disposition: HOME SELF-CARE Condition: Stable Instructions (If sedation given, give patient instructions): Upper Respiratory Infection (ED) Additional Instructions: Please return to the emergency Department if any new or worsening symptoms occur. Follow-up with primary care provider in next 1-2 days. Can take Tylenol or Motrin as directed. Is patient prescribed a controlled substance at d/c from ED?: No Referrals: Brett Miller MD [Primary Care Provider] - 1-2 days Time of Disposition: 23:21
--- NOTE | 2021-07-11 23:01 | XR ---
EXAMINATION TYPE: XR chest 2V DATE OF EXAM: 07/11/2021 COMPARISON: 12/23/2020 HISTORY: Vertebra TECHNIQUE: 2 views FINDINGS: Heart and mediastinum are normal. Lungs are clear. Diaphragm is normal. Bony thorax appears normal. IMPRESSION: Normal chest. No change.
[2021-07-11 23:53] VITALS: BP 126/78; PULSE 83; RESP 16; TEMP 98.1
== END 2021-07-11 23:38 | disposition home or self-care (01) ==
LOC: EC 17:44
DX: J06.9 Acute upper respiratory infection, unspecified (principal); F17.290 Nicotine dependence, other tobacco product, uncomplicated; J45.909 Unspecified asthma, uncomplicated; K21.9 Gastro-esophageal reflux disease without esophagitis; E10.43 Type 1 diabetes mellitus with diabetic autonomic (poly)neuropathy; K31.84 Gastroparesis; Z86.16 Personal history of COVID-19; Z20.822 Contact with and (suspected) exposure to COVID-19; Z96.41 Presence of insulin pump (external) (internal)
CPT/HCPCS: 71046; 87502; 87635; 99285

== ENCOUNTER 2021-07-21 21:15 | Observation (INO) | payer OTHER ==
[2021-07-21] MEDS ORDERED: ONDANSETRON 4 MG/2 ML VIAL IVP STA (21:57)
[2021-07-21] MEDS ORDERED: SODIUM CHLORIDE 0.9% 1,000 ML IV STA ×2 (21:57)
[2021-07-21] MEDS ORDERED: SODIUM CHLORIDE 0.9% 500 ML 500 ML IV STA (21:57)
--- NOTE | 2021-07-21 21:58 | ED ---
Recheck HPI - General Chief Complaint: Recheck/Abnormal Lab/Rx Stated Complaint: covid+, dehydration Time Seen by Provider: 07/21/21 21:29 Source: patient, RN notes reviewed, old records reviewed Mode of arrival: ambulatory Limitations: no limitations - History of Present Illness Initial Comments: This is a 31-year-old male for recheck for evaluation of coronavirus. Patient states his symptoms are worsening he can keep anything down persistent nausea vomiting which is causing him severe debility with underlying diabetes, type I diabetic. Patient states blood sugars have been sporadic difficult to control. He has nausea no current vomiting. Generalized body aches and pains without fever. Patient was diagnosed yesterday with significantly elevated blood sugar and new diagnosis of coronavirus this is a second time having coronavirus MD Complaint: abnormal lab (Patient is positive for coronavirus with elevated blood sugar) -: days(s) Returns Today for: Called Because of Abnormal Lab/Test, persistent/worsening pain related to initial visit Symptoms Since Prior Visit: no new symptoms Associated Symptoms: none Treatments Prior to Arrival: other - Related Data Home Medications Medication Instructions Recorded Confirmed Insulin Aspart (For Pump) [NovoLOG 0.01 unit SQ-PUMP CONTINUOUS 12/20/20 07/21/21 (For Pump)] Allergies Allergy/AdvReac Type Severity Reaction Status Date / Time No Known Allergies Allergy Verified 07/21/21 23:00 Review of Systems ROS Statement: Those systems with pertinent positive or pertinent negative responses have been documented in the HPI. ROS Other: All systems not noted in ROS Statement are negative. Past Medical History Past Medical History: Asthma, Diabetes Mellitus, GERD/Reflux Additional Past Medical History / Comment(s): DM type I, gastroparesis, Covid End of Jul 2020 History of Any Multi-Drug Resistant Organisms: None Reported Past Surgical History: Cholecystectomy Past Anesthesia/Blood Transfusion Reactions: Postoperative Nausea & Vomiting (PONV) Additional Past Anesthesia/Blood Transfusion Reaction / Comment(s): Pt has never received blood. Past Psychological History: No Psychological Hx Reported Smoking Status: Vaper Past Alcohol Use History: Occasional Past Drug Use History: Marijuana - Past Family History Father Family Medical History: Diabetes Mellitus, Hypertension Additional Family Medical History / Comment(s): type II diabetes. Mother Family Medical History: COPD Brother(s) Family Medical History: Diabetes Mellitus Additional Family Medical History / Comment(s): IDDM type I Sister(s) Family Medical History: No Reported History General Exam Limitations: no limitations General appearance: alert, in no apparent distress, anxious Head exam: Present: atraumatic, normocephalic, normal inspection Eye exam: Present: normal appearance, PERRL, EOMI. Absent: scleral icterus, conjunctival injection, periorbital swelling ENT exam: Present: normal exam, mucous membranes moist Neck exam: Present: normal inspection. Absent: tenderness, meningismus, lymph adenopathy Respiratory exam: Present: normal lung sounds bilaterally. Absent: respiratory distress, wheezes, rales, rhonchi, stridor Cardiovascular Exam: Present: regular rate, normal rhythm, normal heart sounds. Absent: systolic murmur, diastolic murmur, rubs, gallop, clicks GI/Abdominal exam: Present: soft, normal bowel sounds. Absent: distended, tenderness, guarding, rebound, rigid Extremities exam: Present: normal inspection, full ROM, normal capillary refill. Absent: tenderness, pedal edema, joint swelling, calf tenderness Back exam: Present: normal inspection Neurological exam: Present: alert, oriented X3, CN II-XII intact Psychiatric exam: Present: normal affect, normal mood Skin exam: Present: warm, dry, intact, normal color. Absent: rash Course Vital Signs 07/21/21 21:18 Pulse Rate 103 H Respiratory 18 Rate Blood Pressure 133/81 O2 Sat by Pulse 98 Oximetry - Reevaluation(s) Reevaluation #1: 07/22/21 01:06 Medical record is reviewed Reevaluation #2: 07/22/21 01:06 Patient does not feel any improvement here in the emergency department Reevaluation #3: 07/22/21 01:06 Patient is informed of results and questions have been answered - Consultations Consultation #1: Spoke with Dr. Mukherjee who will admit this patient Medical Decision Making - Medical Decision Making 31 male to the ER for evaluation with history of type 1 diabetes blood sugar labile, patient be admitted for hydration with persistent nausea vomiting and significant coronavirus currently. - Lab Data Result diagrams: 07/21/21 22:18 07/21/21 22:18 Lab Results 07/21/21 07/21/21 07/21/21 Range/Units 22:18 22:18 22:18 WBC 8.1 (3.8-10.6) k/uL RBC 5.34 (4.30-5.90) m/uL Hgb 16.0 (13.0-17.5) gm/dL Hct 46.5 (39.0-53.0) % MCV 87.1 (80.0-100.0) fL MCH 29.9 (25.0-35.0) pg MCHC 34.3 (31.0-37.0) g/dL RDW 12.6 (11.5-15.5) % Plt Count 225 (150-450) k/uL MPV 8.2 Neutrophils % 66 % Lymphocytes % 21 % Monocytes % 5 % Eosinophils % 6 % Basophils % 1 % Neutrophils # 5.4 (1.3-7.7) k/uL Lymphocytes # 1.7 (1.0-4.8) k/uL Monocytes # 0.4 (0-1.0) k/uL Eosinophils # 0.5 (0-0.7) k/uL Basophils # 0.1 (0-0.2) k/uL VBG pH (7.31-7.41) VBG pCO2 (37-51) mmHg VBG HCO3 (24-28) mmol/L Sodium 130 L (137-145) mmol/L Potassium 4.9 (3.5-5.1) mmol/L Chloride 97 L (98-107) mmol/L Carbon Dioxide 27 (22-30) mmol/L Anion Gap 6 mmol/L BUN 20 (9-20) mg/dL Creatinine 0.83 (0.66-1.25) mg/dL Est GFR (CKD-EPI)AfAm >90 (>60 ml/min/1.73 sqM) Est GFR (CKD-EPI)NonAf >90 (>60 ml/min/1.73 sqM) Glucose 431 H (74-99) mg/dL Plasma Lactic Acid Elio (0.7-2.0) mmol/L Calcium 9.0 (8.4-10.2) mg/dL Phosphorus 3.7 (2.5-4.5) mg/dL Magnesium 1.5 L (1.6-2.3) mg/dL Total Bilirubin 1.0 (0.2-1.3) mg/dL AST 28 (17-59) U/L ALT 29 (4-49) U/L Alkaline Phosphatase 99 (38-126) U/L Lactate Dehydrogenase 341 (313-618) U/L C-Reactive Protein <0.5 (<1.0) mg/dL Total Protein 6.4 (6.3-8.2) g/dL Albumin 4.1 (3.5-5.0) g/dL Urine Color Light Yellow Urine Appearance Clear (Clear) Urine pH 6.0 (5.0-8.0) Ur Specific [place] 1.021 (1.001-1.035) Urine Protein Negative (Negative) Urine Glucose (UA) 4+ H (Negative) Urine Ketones 1+ H (Negative) Urine Blood Negative (Negative) Urine Nitrite Negative (Negative) Urine Bilirubin Negative (Negative) Urine Urobilinogen <2.0 (<2.0) mg/dL Ur Leukocyte Esterase Negative (Negative) Acetone, Qual Positive (Negative) 07/21/21 07/21/21 Range/Units 22:18 22:18 WBC (3.8-10.6) k/uL RBC (4.30-5.90) m/uL Hgb (13.0-17.5) gm/dL Hct (39.0-53.0) % MCV (80.0-100.0) fL MCH (25.0-35.0) pg MCHC (31.0-37.0) g/dL RDW (11.5-15.5) % Plt Count (150-450) k/uL MPV Neutrophils % % Lymphocytes % % Monocytes % % Eosinophils % % Basophils % % Neutrophils # (1.3-7.7) k/uL Lymphocytes # (1.0-4.8) k/uL Monocytes # (0-1.0) k/uL Eosinophils # (0-0.7) k/uL Basophils # (0-0.2) k/uL VBG pH 7.34 (7.31-7.41) VBG pCO2 55 H (37-51) mmHg VBG HCO3 29 H (24-28) mmol/L Sodium (137-145) mmol/L Potassium (3.5-5.1) mmol/L Chloride (98-107) mmol/L Carbon Dioxide (22-30) mmol/L Anion Gap mmol/L BUN (9-20) mg/dL Creatinine (0.66-1.25) mg/dL Est GFR (CKD-EPI)AfAm (>60 ml/min/1.73 sqM) Est GFR (CKD-EPI)NonAf (>60 ml/min/1.73 sqM) Glucose (74-99) mg/dL Plasma Lactic Acid Elio 0.9 (0.7-2.0) mmol/L Calcium (8.4-10.2) mg/dL Phosphorus (2.5-4.5) mg/dL Magnesium (1.6-2.3) mg/dL Total Bilirubin (0.2-1.3) mg/dL AST (17-59) U/L ALT (4-49) U/L Alkaline Phosphatase (38-126) U/L Lactate Dehydrogenase (313-618) U/L C-Reactive Protein (<1.0) mg/dL Total Protein (6.3-8.2) g/dL Albumin (3.5-5.0) g/dL Urine Color Urine Appearance (Clear) Urine pH (5.0-8.0) Ur Specific [place] (1.001-1.035) Urine Protein (Negative) Urine Glucose (UA) (Negative) Urine Ketones (Negative) Urine Blood (Negative) Urine Nitrite (Negative) Urine Bilirubin (Negative) Urine Urobilinogen (<2.0) mg/dL Ur Leukocyte Esterase (Negative) Acetone, Qual (Negative) Disposition Clinical Impression: Hyperglycemia, Diabetic ketoacidosis, type I, Coronavirus infection Disposition: ADMITTED IP TO THIS HOSP Condition: Fair Is patient prescribed a controlled substance at d/c from ED?: No Referrals: Brett Miller MD [Primary Care Provider] - 1-2 days
[2021-07-21 23:03] LABS: Basophils # (A) 0.1 k/uL (0-0.2); Basophils % (A) 1 %; Eosinophils # (A) 0.5 k/uL (0-0.7); Eosinophils % (A) 6 %; HCT 46.5 % (39.0-53.0); Lymphocytes # (A) 1.7 k/uL (1.0-4.8); Lymphocytes % (A) 21 %; MCH 29.9 pg (25.0-35.0); MCHC 34.3 g/dL (31.0-37.0); MCV 87.1 fL (80.0-100.0); Mean Platelet Volume 8.2; Monocytes # (A) 0.4 k/uL (0-1.0); Monocytes % (A) 5 %; Neutrophils # (A) 5.4 k/uL (1.3-7.7); Neutrophils % (A) 66 %; Platelet Count 225 k/uL (150-450); RBC 5.34 m/uL (4.30-5.90); RDW 12.6 % (11.5-15.5); WBC 8.1 k/uL (3.8-10.6)
[2021-07-21 23:04] LABS: VBG PH 7.34 (7.31-7.41)
[2021-07-21 23:08] LABS: Appearance,Urine Clear (Clear); Bilirubin,Urine Negative (Negative); Blood,Urine Negative (Negative); Color,Urine Light Yellow; Glucose,Urine (UA) 4+ (Negative); Ketones,Urine 1+ (Negative); Leukocyte Esterase,Urine Negative (Negative); Nitrite,Urine Negative (Negative); Protein,Urine Negative (Negative); Specific Gravity,Urine 1.021 (1.001-1.035); Urobilinogen,Urine <2.0 mg/dL (<2.0)
[2021-07-21 23:12] LABS: ALT 29 U/L (4-49); AST 28 U/L (17-59); African American GFR (CKD) >90 (>60 ml/min/1.73 sqM); Albumin 4.1 g/dL (3.5-5.0); Alkaline Phosphatase 99 U/L (38-126); Anion Gap 6 mmol/L; Blood Urea Nitrogen 20 mg/dL (9-20); C Reactive Protein <0.5 mg/dL (<1.0); Carbon Dioxide 27 mmol/L (22-30); Chloride 97 mmol/L (98-107); Glucose 431 mg/dL (74-99); LDH 341 U/L (313-618); Magnesium 1.5 mg/dL (1.6-2.3); Non-African American GFR(CKD) >90 (>60 ml/min/1.73 sqM); Phosphorus 3.7 mg/dL (2.5-4.5); Potassium 4.9 mmol/L (3.5-5.1); Sodium 130 mmol/L (137-145); Total Protein 6.4 g/dL (6.3-8.2)
[2021-07-22] MEDS ORDERED: NALOXONE 0.4 MG/ML 1 ML VIAL IV PRN (00:57)
[2021-07-22] MEDS ORDERED: ONDANSETRON 4 MG/2 ML VIAL IVP PRN (01:02)
[2021-07-22] MEDS ORDERED: IBUPROFEN 400 MG TAB PO PRN (01:02)
[2021-07-22] MEDS ORDERED: ACETAMINOPHEN TAB 325 MG TAB PO PRN (01:02)
[2021-07-22] MEDS ORDERED: MORPHINE SULFATE 4 MG/ML SYRINGE IV PRN (01:02)
[2021-07-22] MEDS ORDERED: SODIUM CHLORIDE 0.9% 1,000 ML IV STA (01:07)
[2021-07-22 01:41] LABS: Glucose,Whole Blood 303 mg/dL (75-99)
[2021-07-22] MEDS: SODIUM CHLORIDE 0.9% 1,000 ML IV SCH ×3 (04:02→15:28)
[2021-07-22 07:38] LABS: Glucose,Whole Blood 297 mg/dL (75-99)
[2021-07-22] MEDS ORDERED: INSPUCOR MISCELLANE PRN (08:25)
[2021-07-22] MEDS ORDERED: INSULIN ASPART (NovoLOG) 100 UNIT/ML VIAL SQ PRN (08:25)
[2021-07-22] MEDS: ZINC SULFATE 220 MG CAP PO SCH (09:23)
[2021-07-22] MEDS: ASCORBIC ACID 500 MG TAB PO SCH (09:23)
[2021-07-22] MEDS: CHOLECALCIFEROL 125 MCG (5000 IU) TABLET PO SCH (09:23)
--- NOTE | 2021-07-22 11:37 | P.HPIM ---
History of Present Illness H&P Date: 07/22/21 Chief Complaint: Dehydration, covid positive History of present illness This is a 31-year-old patient who follows with Dr. du with a past medical hist ory significant for type 1 diabetes with insulin pump, asthma, GERD, gastroparesis. He previously had Covid 19 at the end of July 2019. Patient presents to the emergency room today for recheck evaluation of carotid virus. Patient states that he had a coworker who tested positive and he has noticed that his symptoms are starting to worsen. Patient has persistent nausea and vomiting. Generalized body aches and fatigue. At first patient felt that he was just under the weather. However talking with coworkers he found out that another coworker had tested positive. Patient states that his blood sugars are elevated. At this time patient is found resting comfortably on 6 N. in no acute distress. Patient is complaining of nausea and no vomiting. He does have generalized fatigue no shortness of breath or cough. insulin pump is in place we will continue with basal rate of insulin pump and NovoLog sliding scale for coverage along with Levemir 10 units twice a day. We will start patient on vitamin [place] and hold off on antibiotics or steroids at this time. Patient is afebrile, heart rate 73, respirations 16 pulse ox 94% on room air, blood pressure 122/77. WBC 8.1, hemoglobin 16.0, sodium 130, potassium 4.9, chloride 97, BUN 20, creatinine 0.83 Review Of Systems: Constitutional: No fever, no chills, no night sweats. No weight change. No weakness, reports fatigue no lethargy. No daytime sleepiness. Reports generalized body aches EENT: Reports headache. No blurred vision or double vision, no loss of vision. No loss of Hearing, no ringing in the ears, no dizziness. No nasal drainage or congestion. No epistaxis. No sore throat. Lungs: No shortness of breath, cough, no sputum production. No wheezing. Cardiovascular: No chest pain, no lower extremity edema. No palpitations. No paroxysmal nocturnal dyspnea. No orthopnea. No lightheadedness or dizziness. No syncopal episodes. Abdominal: Reports abdominal discomfort. Reports nausea and vomiting. no diarrhea. No constipation. No bloody or tarry stools. no loss of appetite. Genitourinary: No dysuria, increased frequency, urgency. No urinary retention. Musculoskeletal: No myalgias. No muscle weakness, no gait dysfunction, no frequent falls. No back pain. No neck pain. Integumentary: No wounds, no lesions. No rash or pruritus. No unusual bruising. No change in hair or nails. Neurologic: No aphasia. No facial droop. No change in mentation. No head injury. No headache. No paralysis. No paresthesia. Psychiatric: No depression. No anxiety. No mood swings. Endocrine: Reports abnormal blood sugars. No weight change. No excessive sweating or thirst. Social history: Patient lives with his mother. 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 Patient states that he only smoked for 3 years. He does sleep daily. Denies any marijuana use. Denies illicit drug use. No alcohol use. Family history: Mother is alive at 71 with no history of diabetes. Father at 69 with history of coronary artery disease. Patient has 2 brothers and one has type 1 diabetes and melanoma has history of coronary artery disease. Patient has 1 sister with no major medical problems. Patient does not have any children. Physical examination General Appearance: Alert, cooperative, no distress, 31-year-old male appears stated age. Neck HEENT: Supple, no lymphadenopathy, no thyroid enlargement, no carotid bruits. Lungs: Clear to auscultation without crackles or wheezes no rhonchi, no deformity. Chest Wall: Chest wall normal expansion with deep inspiration no tenderness and no deformity was found on exam, no costochondral pain or discomfort. Heart: Regular rate and rhythm, S1, S2 normal, no murmur, rub or gallop. Back: Symmetric, no curvature, ROM normal, no CVA tenderness. Abdomen: Soft, non-tender, no rebound or rigidity, no hepatosplenomegaly. Extremities: Extremities normal, atraumatic, no cyanosis or edema. Pulses: 2+ and symmetric. Skin: Skin color, texture, tugor normal, no rashes or lesions. Neurologic: Alert oriented x3 cranial nerves II through XII intact, no motor deficit, no abnormal balance or gait Assessment and plan 1. Non-acidotic hyperglycemia. Continue insulin pump at baseline. We will add Levemir 10 units twice a day. NovoLog sliding scale. Continue with Accu-Cheks before meals and at bedtime. 2. Covid Positive pneumonitis with mild hypoxia. Patient will be started on vitamin Sarahi of vitamin C, vitamin D3, and zinc. We will hold off on any antibiotics at this time. 3. Covid positive gastroenteritis with dehydration. Continue with hydration. Zofran 4 mg every 4 hours as needed 4. Diabetes. Continue insulin pump and Levemir 10 units twice a day, NovoLog sliding scale for coverage 5. Asthma. 6. GERD. Pepcid 20 mg by mouth 7. DVT prophylaxis. Pneumatic compression 8. GI prophylaxis. Pepcid CODE STATUS: Full code Discharge plan: Home more than likely tomorrow Impression and plan of care have been directed as dictated by the signing physician. Hamida Mckeon nurse practitioner acting as scribe for signing physician. Past Medical History Past Medical History: Asthma, Diabetes Mellitus, GERD/Reflux Additional Past Medical History / Comment(s): DM type I, gastroparesis, Covid End of Jul 2020 History of Any Multi-Drug Resistant Organisms: None Reported Past Surgical History: Cholecystectomy Past Anesthesia/Blood Transfusion Reactions: Postoperative Nausea & Vomiting (PONV) Additional Past Anesthesia/Blood Transfusion Reaction / Comment(s): Pt has never received blood. Past Psychological History: No Psychological Hx Reported Additional Psychological History / Comment(s): Pt has had difficulties with anxiety and depression in the past but not at this time. He is independent. He drives. Smoking Status: Vaper Past Alcohol Use History: Occasional Additional Drug Use History / Comment(s): previous Marijuana use, none currently, started when he was 17 - Past Family History Father Family Medical History: Diabetes Mellitus, Hypertension Additional Family Medical History / Comment(s): type II diabetes. Mother Family Medical History: COPD Brother(s) Family Medical History: Diabetes Mellitus Additional Family Medical History / Comment(s): IDDM type I Sister(s) Family Medical History: No Reported History Medications and Allergies Home Medications Medication Instructions Recorded Confirmed Type Insulin Aspart (For Pump) [NovoLOG 0.01 unit SQ-PUMP CONTINUOUS 12/20/20 07/21/21 History (For Pump)] Allergies Allergy/AdvReac Type Severity Reaction Status Date / Time No Known Allergies Allergy Verified 07/21/21 23:00 Physical Exam Vitals: Vital Signs Temp Pulse Pulse Resp BP BP Pulse Ox 07/22/21 07:00 97.7 F 73 16 122/77 94 L 07/22/21 00:57 98.6 F 96 18 127/85 98 07/21/21 21:18 103 H 18 133/81 98 Intake and Output 07/21/21 07/22/21 07/22/21 22:59 06:59 14:59 Other: Voiding Method Toilet # Voids 1 Weight 79.379 kg 79.379 kg Results CBC & Chem 7: 07/21/21 22:18 07/21/21 22:18 Labs: Abnormal Lab Results - Last 24 Hours (Table) 07/21/21 07/21/21 07/21/21 Range/Units 22:18 22:18 22:18 VBG pCO2 55 H (37-51) mmHg VBG HCO3 29 H (24-28) mmol/L Sodium 130 L (137-145) mmol/L Chloride 97 L (98-107) mmol/L Glucose 431 H (74-99) mg/dL POC Glucose (mg/dL) (75-99) mg/dL Magnesium 1.5 L (1.6-2.3) mg/dL Urine Glucose (UA) 4+ H (Negative) Urine Ketones 1+ H (Negative) 07/22/21 07/22/21 Range/Units 01:40 07:36 VBG pCO2 (37-51) mmHg VBG HCO3 (24-28) mmol/L Sodium (137-145) mmol/L Chloride (98-107) mmol/L Glucose (74-99) mg/dL POC Glucose (mg/dL) 303 H 297 H (75-99) mg/dL Magnesium (1.6-2.3) mg/dL Urine Glucose (UA) (Negative) Urine Ketones (Negative) Thrombosis Risk Factor Assmnt - Choose All That Apply Each Factor Represents 1 point: Obesity (BMI >25) Thrombosis Risk Factor Assessment Total Risk Factor Score: 1 Thrombosis Risk Factor Assessment Level: Low Risk
[2021-07-22 12:00] LABS: Glucose,Whole Blood 266 mg/dL (75-99)
[2021-07-22] MEDS: INSULIN ASPART (NovoLOG) 100 UNIT/ML VIAL SQ SCH ×3 (12:03→21:10)
[2021-07-22 17:10] LABS: Glucose,Whole Blood 209 mg/dL (75-99)
[2021-07-22 20:11] LABS: Glucose,Whole Blood 288 mg/dL (75-99)
[2021-07-22] MEDS ORDERED: INSULIN DETEMIR (LEVEMIR) 100 UNIT/ML SYR SQ SCH (21:00)
[2021-07-23 01:18] LABS: Glucose,Whole Blood 65 mg/dL (75-99)
[2021-07-23] MEDS: SODIUM CHLORIDE 0.9% 1,000 ML IV SCH ×3 (02:53→14:07)
[2021-07-23 03:25] LABS: Glucose,Whole Blood 292 mg/dL (75-99)
[2021-07-23] MEDS ORDERED: INSULIN DETEMIR (LEVEMIR) 100 UNIT/ML SYR SQ SCH (07:00)
[2021-07-23 07:55] LABS: Glucose,Whole Blood 182 mg/dL (75-99)
[2021-07-23] MEDS: INSULIN ASPART (NovoLOG) 100 UNIT/ML VIAL SQ SCH ×2 (08:12→12:25)
[2021-07-23] MEDS: ASCORBIC ACID 500 MG TAB PO SCH (08:16)
[2021-07-23] MEDS: ZINC SULFATE 220 MG CAP PO SCH (08:16)
[2021-07-23] MEDS: CHOLECALCIFEROL 125 MCG (5000 IU) TABLET PO SCH (08:16)
[2021-07-23 08:28] VITALS: BP 112/69; PULSE 88; RESP 18; TEMP 97.6
[2021-07-23] MEDS ORDERED: FAMOTIDINE 20 MG TAB PO SCH (09:00)
[2021-07-23 09:33] LABS: Basophils # (A) 0.07 X 10*3/uL (0.00-0.10); Basophils % (A) 0.8 %; Eosinophils # (A) 0.45 X 10*3/uL (0.04-0.35); HCT 40.7 % (39.6-50.0); HGB 14.1 g/dL (13.0-17.0); Lymphocytes % (A) 23.5 %; MCH 29.4 pg (27.0-32.0); MCHC 34.6 g/dL (32.0-37.0); Mean Platelet Volume 10.9 fL (9.5-12.2); Monocytes # (A) 0.44 X 10*3/uL (0.20-1.00); Monocytes % (A) 4.9 %; Neutrophils # (A) 5.82 X 10*3/uL (1.80-7.70); Neutrophils % (A) 65.4 %; Platelet Count 203 X 10*3/uL (140-440); RBC 4.79 X 10*6/uL (4.40-5.60); RDW 12.4 % (11.5-14.5); WBC 8.92 X 10*3/uL (4.50-10.00)
[2021-07-23 09:47] LABS: African American GFR (CKD) 132.4 (60.0-200.0); Albumin 4.1 g/dL (3.8-4.9); Albumin/Globulin Ratio 2.41 (1.60-3.17); Anion Gap 9.9 mmol/L (10.00-18.00); BUN/Creat Ratio 12.56 Ratio (12.00-20.00); Blood Urea Nitrogen 11.3 mg/dL (9.0-27.0); Calcium 8.7 mg/dL (8.7-10.3); Carbon Dioxide 26.1 mmol/L (20.0-27.5); Globulin 1.7 g/dL (1.6-3.3); Magnesium 1.9 mg/dL (1.5-2.4); Non-African American GFR(CKD) 114.2 (60.0-200.0); Phosphorus 3.4 mg/dL (2.4-5.1); Potassium 4.2 mmol/L (3.5-5.5); Total Bilirubin 0.3 mg/dL (0.30-1.20); Total Protein 5.8 g/dL (6.2-8.2)
[2021-07-23 11:22] LABS: Glucose,Whole Blood 286 mg/dL (75-99)
[2021-07-23] MEDS ORDERED: CASIRIVIMAB (REGN10933) (EUA) 600 MG, IMDEVIMAB (REGN10987) (EUA) 600 MG in SODIUM CHLO... IVPB ONE (13:00)
[2021-07-23] MEDS ORDERED: SODIUM CHLORIDE 0.9% 50 ML IVPB ONE (13:30)
[2021-07-23 15:32] VITALS: BMI 28.2
== END 2021-07-23 15:28 | disposition home or self-care (01) ==
LOC: EC 21:15 → 6NMEDSUR 07-22 00:57
PROVIDERS: ADMIT Internal Medicine Geriatric Medicine; ATTEND Internal Medicine Geriatric Medicine
DX: U07.1 COVID-19 (principal); J12.82 Pneumonia due to coronavirus disease 2019; E10.65 Type 1 diabetes mellitus with hyperglycemia; R09.02 Hypoxemia; E86.0 Dehydration; K52.9 Noninfective gastroenteritis and colitis, unspecified; E10.43 Type 1 diabetes mellitus with diabetic autonomic (poly)neuropathy; K31.84 Gastroparesis; K21.9 Gastro-esophageal reflux disease without esophagitis; J45.909 Unspecified asthma, uncomplicated; F32.A Depression, unspecified; E66.9 Obesity, unspecified; Z68.28 Body mass index [BMI] 28.0-28.9, adult; F41.9 Anxiety disorder, unspecified; Z79.4 Long term (current) use of insulin; Z96.41 Presence of insulin pump (external) (internal); Z87.891 Personal history of nicotine dependence; Z90.49 Acquired absence of other specified parts of digestive tract; Z80.8 Family history of malignant neoplasm of other organs or systems; Z82.49 Family history of ischemic heart disease and other diseases of the circulatory system; Z83.3 Family history of diabetes mellitus; Z82.5 Family history of asthma and other chronic lower respiratory diseases
CPT/HCPCS: 96361 ×4; 96374; 99285; 36415 ×2; 80053 ×2; 82803; 82009; 83605; 83615; 83735 ×2; 84100 ×2; 85025 ×2; 86140; 81003; G0378 ×2; M0243; J2405; Q0244

== ENCOUNTER 2021-08-17 10:24 | Emergency (ER) | payer OTHER ==
[2021-08-17 10:30] VITALS: BP 132/80; PULSE 83; RESP 18; TEMP 97.8
--- NOTE | 2021-08-17 10:55 | ED ---
General Adult HPI - General Chief complaint: Upper Respiratory Infection Stated complaint: weak/head cold Time Seen by Provider: 08/17/21 10:35 Source: patient, RN notes reviewed Mode of arrival: ambulatory Limitations: no limitations - History of Present Illness Initial comments: 31-year-old male with a past medical history of asthma, GERD, type 1 diabetes mellitus presents to the emergency room for a chief complaint of having a head cold. Patient states he has been congested for the past 2 days. States for the past week he has had trouble keeping his sugar down but has been able to today. Patient had covert 1 month ago. He saw his doctor who stated it was probably related to that. He has not had any fevers.Patient has no other complaints at this time including shortness of breath, chest pain, abdominal pain, nausea or vomiting, headache, or visual changes. - Related Data Home Medications Medication Instructions Recorded Confirmed Insulin Aspart (For Pump) [NovoLOG 0.01 unit SQ-PUMP CONTINUOUS 12/20/20 08/17/21 (For Pump)] Doxycycline Hyclate 100 mg PO Q12H 08/17/21 08/17/21 Previous Rx's Medication Instructions Recorded Zinc Gluconate [Zinc] 50 mg PO DAILY #30 tablet 07/23/21 guaiFENesin [Mucinex] 600 mg PO Q12HR PRN #20 tab 08/17/21 Allergies Allergy/AdvReac Type Severity Reaction Status Date / Time No Known Allergies Allergy Verified 08/17/21 11:03 Review of Systems ROS Statement: Those systems with pertinent positive or pertinent negative responses have been documented in the HPI. ROS Other: All systems not noted in ROS Statement are negative. Past Medical History Past Medical History: Asthma, Diabetes Mellitus, GERD/Reflux Additional Past Medical History / Comment(s): DM type I, gastroparesis, Covid End of Jul 2020 History of Any Multi-Drug Resistant Organisms: None Reported Past Surgical History: Cholecystectomy Past Anesthesia/Blood Transfusion Reactions: Postoperative Nausea & Vomiting (PONV) Additional Past Anesthesia/Blood Transfusion Reaction / Comment(s): Pt has never received blood. Past Psychological History: No Psychological Hx Reported Smoking Status: Vaper Past Alcohol Use History: Occasional - Past Family History Father Family Medical History: Diabetes Mellitus, Hypertension Additional Family Medical History / Comment(s): type II diabetes. Mother Family Medical History: COPD Brother(s) Family Medical History: Diabetes Mellitus Additional Family Medical History / Comment(s): IDDM type I Sister(s) Family Medical History: No Reported History General Exam Limitations: no limitations General appearance: alert, in no apparent distress Head exam: Present: atraumatic Eye exam: Present: normal appearance, PERRL, EOMI. Absent: scleral icterus, conjunctival injection ENT exam: Present: normal exam, mucous membranes moist Neck exam: Present: normal inspection, full ROM. Absent: tenderness Respiratory exam: Present: normal lung sounds bilaterally. Absent: respiratory distress, wheezes Cardiovascular Exam: Present: regular rate, normal rhythm, normal heart sounds GI/Abdominal exam: Present: soft, normal bowel sounds. Absent: distended, tenderness Course Vital Signs 08/17/21 10:28 Temperature 97.8 F Pulse Rate 83 Respiratory 18 Rate Blood Pressure 132/80 O2 Sat by Pulse 100 Oximetry Medical Decision Making - Medical Decision Making Vitals are stable. CBC CMP unremarkable. Glucose is 179, anion gap 4, negative acetone. Patient given fluids. At this time patient likely has sinusitis. He is already on doxycycline by his primary care. He can be discharged home to follow up with them. He should return here for any worsening symptoms. - Lab Data Result diagrams: 08/17/21 10:57 08/17/21 10:57 Lab Results 08/17/21 08/17/21 08/17/21 Range/Units 10:56 10:57 10:57 WBC 5.1 (3.8-10.6) k/uL RBC 5.06 (4.30-5.90) m/uL Hgb 15.3 (13.0-17.5) gm/dL Hct 44.2 (39.0-53.0) % MCV 87.4 (80.0-100.0) fL MCH 30.2 (25.0-35.0) pg MCHC 34.6 (31.0-37.0) g/dL RDW 13.6 (11.5-15.5) % Plt Count 217 (150-450) k/uL MPV 7.8 Neutrophils % 55 % Lymphocytes % 27 % Monocytes % 5 % Eosinophils % 10 % Basophils % 1 % Neutrophils # 2.8 (1.3-7.7) k/uL Lymphocytes # 1.4 (1.0-4.8) k/uL Monocytes # 0.2 (0-1.0) k/uL Eosinophils # 0.5 (0-0.7) k/uL Basophils # 0.1 (0-0.2) k/uL Sodium 137 (137-145) mmol/L Potassium 4.1 (3.5-5.1) mmol/L Chloride 103 (98-107) mmol/L Carbon Dioxide 30 (22-30) mmol/L Anion Gap 4 mmol/L BUN 12 (9-20) mg/dL Creatinine 0.81 (0.66-1.25) mg/dL Est GFR (CKD-EPI)AfAm >90 (>60 ml/min/1.73 sqM) Est GFR (CKD-EPI)NonAf >90 (>60 ml/min/1.73 sqM) Glucose 179 H (74-99) mg/dL POC Glucose (mg/dL) 172 H (75-99) mg/dL POC Glu Non [employer]fit Job Titles ID Ghislaine Anna Calcium 9.0 (8.4-10.2) mg/dL Total Bilirubin 0.8 (0.2-1.3) mg/dL AST 34 (17-59) U/L ALT 46 (4-49) U/L Alkaline Phosphatase 84 (38-126) U/L Total Protein 6.8 (6.3-8.2) g/dL Albumin 4.1 (3.5-5.0) g/dL Acetone, Qual Negative (Negative) Influenza Type A RNA (Not Detectd) Influenza Type B (PCR) (Not Detectd) 08/17/21 Range/Units 10:57 WBC (3.8-10.6) k/uL RBC (4.30-5.90) m/uL Hgb (13.0-17.5) gm/dL Hct (39.0-53.0) % MCV (80.0-100.0) fL MCH (25.0-35.0) pg MCHC (31.0-37.0) g/dL RDW (11.5-15.5) % Plt Count (150-450) k/uL MPV Neutrophils % % Lymphocytes % % Monocytes % % Eosinophils % % Basophils % % Neutrophils # (1.3-7.7) k/uL Lymphocytes # (1.0-4.8) k/uL Monocytes # (0-1.0) k/uL Eosinophils # (0-0.7) k/uL Basophils # (0-0.2) k/uL Sodium (137-145) mmol/L Potassium (3.5-5.1) mmol/L Chloride (98-107) mmol/L Carbon Dioxide (22-30) mmol/L Anion Gap mmol/L BUN (9-20) mg/dL Creatinine (0.66-1.25) mg/dL Est GFR (CKD-EPI)AfAm (>60 ml/min/1.73 sqM) Est GFR (CKD-EPI)NonAf (>60 ml/min/1.73 sqM) Glucose (74-99) mg/dL POC Glucose (mg/dL) (75-99) mg/dL POC Glu Non Profit Job Titles ID Calcium (8.4-10.2) mg/dL Total Bilirubin (0.2-1.3) mg/dL AST (17-59) U/L ALT (4-49) U/L Alkaline Phosphatase (38-126) U/L Total Protein (6.3-8.2) g/dL Albumin (3.5-5.0) g/dL Acetone, Qual (Negative) Influenza Type A RNA Not Detected (Not Detectd) Influenza Type B (PCR) Not Detected (Not Detectd) Disposition Clinical Impression: Sinusitis Disposition: HOME SELF-CARE Condition: Good Instructions (If sedation given, give patient instructions): Sinusitis (ED) Additional Instructions: Take medication as directed. Finish your course of doxycycline as given to you by your primary care doctor. Drink plenty of fluids at home. Return to the emergency room for any worsening symptoms. Prescriptions: guaiFENesin [Mucinex] 600 mg PO Q12HR PRN #20 tab PRN Reason: Congestion Is patient prescribed a controlled substance at d/c from ED?: No Referrals: Brett Miller MD [Primary Care Provider] - 1-2 days Time of Disposition: 11:38
[2021-08-17 10:58] LABS: Glucose,Whole Blood 172 mg/dL (75-99)
[2021-08-17] MEDS: SODIUM CHLORIDE 0.9% 1,000 ML IV STA (11:03)
[2021-08-17 11:06] LABS: Basophils # (A) 0.1 k/uL (0-0.2); Basophils % (A) 1 %; Eosinophils # (A) 0.5 k/uL (0-0.7); Eosinophils % (A) 10 %; HCT 44.2 % (39.0-53.0); HGB 15.3 gm/dL (13.0-17.5); Lymphocytes # (A) 1.4 k/uL (1.0-4.8); Lymphocytes % (A) 27 %; MCH 30.2 pg (25.0-35.0); MCHC 34.6 g/dL (31.0-37.0); MCV 87.4 fL (80.0-100.0); Mean Platelet Volume 7.8; Monocytes # (A) 0.2 k/uL (0-1.0); Monocytes % (A) 5 %; Neutrophils # (A) 2.8 k/uL (1.3-7.7); Neutrophils % (A) 55 %; Platelet Count 217 k/uL (150-450); RBC 5.06 m/uL (4.30-5.90); RDW 13.6 % (11.5-15.5); WBC 5.1 k/uL (3.8-10.6)
[2021-08-17 11:22] LABS: ALT 46 U/L (4-49); AST 34 U/L (17-59); African American GFR (CKD) >90 (>60 ml/min/1.73 sqM); Albumin 4.1 g/dL (3.5-5.0); Alkaline Phosphatase 84 U/L (38-126); Anion Gap 4 mmol/L; Blood Urea Nitrogen 12 mg/dL (9-20); Carbon Dioxide 30 mmol/L (22-30); Chloride 103 mmol/L (98-107); Glucose 179 mg/dL (74-99); Non-African American GFR(CKD) >90 (>60 ml/min/1.73 sqM); Potassium 4.1 mmol/L (3.5-5.1); Sodium 137 mmol/L (137-145); Total Bilirubin 0.8 mg/dL (0.2-1.3); Total Protein 6.8 g/dL (6.3-8.2)
== END 2021-08-17 11:53 | disposition home or self-care (01) ==
LOC: EC 10:24
DX: J32.9 Chronic sinusitis, unspecified (principal); F17.290 Nicotine dependence, other tobacco product, uncomplicated; J45.909 Unspecified asthma, uncomplicated; E10.43 Type 1 diabetes mellitus with diabetic autonomic (poly)neuropathy; K31.84 Gastroparesis; Z86.16 Personal history of COVID-19
CPT/HCPCS: 36415; 80053; 82009; 85025; 87502; 96360; 99283

== ENCOUNTER 2021-10-19 14:05 | Emergency (ER) | payer OTHER ==
[2021-10-19 14:14] VITALS: RESP 20; TEMP 98
[2021-10-19] MEDS ORDERED: SODIUM CHLORIDE 0.9% 1,000 ML IV STA (15:53)
--- NOTE | 2021-10-19 15:53 | ED ---
General Adult HPI - General Chief complaint: Recheck/Abnormal Lab/Rx Stated complaint: Hyperglycemia Time Seen by Provider: 10/19/21 15:45 Source: patient, RN notes reviewed, old records reviewed Mode of arrival: ambulatory Limitations: no limitations - History of Present Illness Initial comments: This is a well-appearing 31-year-old male, alert and oriented 4, presents to emergency room with complaints of feeling fatigued today. Patient states that he is in labor and normally has to eat throughout the day to keep his sugars up. Today he's been checking his sugars have been elevated he has been giving himself his insulin subcutaneously and sugar still remained high. He denies any nausea vomiting diarrhea or fevers cough or pain. He does feel fatigued today. He is not sure if his insulin is not being absorbed scar tissue came in for evaluation. -: days(s) (1) Severity scale (1-10): 0 Associated Symptoms: malaise Treatments Prior to Arrival: other (insulin) - Related Data Home Medications Medication Instructions Recorded Confirmed Insulin Aspart (For Pump) [NovoLOG 0.01 unit SQ-PUMP CONTINUOUS 12/20/20 10/19/21 (For Pump)] amLODIPine [Norvasc] 2.5 mg PO DIRECTED 10/19/21 10/19/21 hydrOXYzine pamoate [Vistaril] 25 mg PO DIRECTED 10/19/21 10/19/21 Previous Rx's Medication Instructions Recorded guaiFENesin [Mucinex] 600 mg PO Q12HR PRN #20 tab 08/17/21 Allergies Allergy/AdvReac Type Severity Reaction Status Date / Time No Known Allergies Allergy Verified 10/19/21 16:43 Review of Systems ROS Statement: Those systems with pertinent positive or pertinent negative responses have been documented in the HPI. ROS Other: All systems not noted in ROS Statement are negative. Past Medical History Past Medical History: Asthma, Diabetes Mellitus, GERD/Reflux Additional Past Medical History / Comment(s): DM type I, gastroparesis, Covid End of Jul 2020 History of Any Multi-Drug Resistant Organisms: None Reported Past Surgical History: Cholecystectomy Past Anesthesia/Blood Transfusion Reactions: Postoperative Nausea & Vomiting (PONV) Additional Past Anesthesia/Blood Transfusion Reaction / Comment(s): Pt has never received blood. Past Psychological History: No Psychological Hx Reported Smoking Status: Vaper Past Alcohol Use History: Occasional Past Drug Use History: None Reported - Past Family History Father Family Medical History: Diabetes Mellitus, Hypertension Additional Family Medical History / Comment(s): type II diabetes. Mother Family Medical History: COPD Brother(s) Family Medical History: Diabetes Mellitus Additional Family Medical History / Comment(s): IDDM type I Sister(s) Family Medical History: No Reported History General Exam Limitations: no limitations General appearance: alert, in no apparent distress Head exam: Present: atraumatic, normocephalic, normal inspection Eye exam: Present: normal appearance. Absent: scleral icterus, conjunctival injection, nystagmus, periorbital swelling ENT exam: Present: normal exam, normal oropharynx, mucous membranes moist Neck exam: Present: normal inspection, full ROM. Absent: tenderness, meningismus, lymphadenopathy, thyromegaly Respiratory exam: Present: normal lung sounds bilaterally. Absent: respiratory distress, wheezes, rales, rhonchi, stridor, chest wall tenderness, accessory muscle use, decreased breath sounds Cardiovascular Exam: Present: regular rate, normal rhythm, normal heart sounds. Absent: JVD GI/Abdominal exam: Present: soft. Absent: distended, tenderness Extremities exam: Present: normal capillary refill. Absent: pedal edema Back exam: Present: normal inspection, full ROM. Absent: tenderness, CVA tenderness (R), CVA tenderness (L), rash noted Neurological exam: Present: alert, oriented X3 Psychiatric exam: Present: normal affect, normal mood Skin exam: Present: warm, dry, normal color. Absent: cyanosis, diaphoretic, petechiae, pallor Course Vital Signs 10/19/21 14:12 Temperature 98 F Pulse Rate 81 Respiratory 20 Rate Blood Pressure 145/82 O2 Sat by Pulse 99 Oximetry Medical Decision Making - Medical Decision Making 31-year-old male presents with fatigue today and elevated blood glucose levels. Chest x-ray shows no pleural effusion or focal consolidation. No acute cardiopulmonary disease noted. Hemoglobin and hematocrit are stable, there is no evidence of leukocytosis. Blood glucose level prior to IV fluids was 373, other electrolytes are unremarkable. Urinalysis shows 4+ glucose with 1+ ketones. Patient was given 1 L of normal saline. Blood glucose down to 300. Upon reassessment patient states that he is feeling much better. I did advise him he had some mild dehydration which may have contributed to his fatigue today. Patient will be discharged home to continue his medications, consider change the site of his insulin pump to see if this is an absorption issue. Patient is agreeable to this plan of care. Case discussed with Dr. Nevarez - Lab Data Result diagrams: 10/19/21 16:30 10/19/21 16:30 Lab Results 10/19/21 10/19/21 10/19/21 Range/Units 16:30 16:30 16:30 WBC 7.6 (3.8-10.6) k/uL RBC 5.51 (4.30-5.90) m/uL Hgb 16.4 (13.0-17.5) gm/dL Hct 47.4 (39.0-53.0) % MCV 86.0 (80.0-100.0) fL MCH 29.8 (25.0-35.0) pg MCHC 34.6 (31.0-37.0) g/dL RDW 13.4 (11.5-15.5) % Plt Count 233 (150-450) k/uL MPV 7.6 Neutrophils % 66 % Lymphocytes % 21 % Monocytes % 4 % Eosinophils % 6 % Basophils % 2 % Neutrophils # 5.0 (1.3-7.7) k/uL Lymphocytes # 1.6 (1.0-4.8) k/uL Monocytes # 0.3 (0-1.0) k/uL Eosinophils # 0.4 (0-0.7) k/uL Basophils # 0.1 (0-0.2) k/uL Sodium 133 L (137-145) mmol/L Potassium 4.8 (3.5-5.1) mmol/L Chloride 99 (98-107) mmol/L Carbon Dioxide 25 (22-30) mmol/L Anion Gap 9 mmol/L BUN 18 (9-20) mg/dL Creatinine 0.91 (0.66-1.25) mg/dL Est GFR (CKD-EPI)AfAm >90 (>60 ml/min/1.73 sqM) Est GFR (CKD-EPI)NonAf >90 (>60 ml/min/1.73 sqM) Glucose 373 H (74-99) mg/dL POC Glucose (mg/dL) (75-99) mg/dL POC Glu Spool Tender ID Calcium 9.3 (8.4-10.2) mg/dL Magnesium 1.8 (1.6-2.3) mg/dL Total Bilirubin 1.1 (0.2-1.3) mg/dL AST 26 (17-59) U/L ALT 37 (4-49) U/L Alkaline Phosphatase 112 (38-126) U/L Total Protein 7.2 (6.3-8.2) g/dL Albumin 4.6 (3.5-5.0) g/dL Urine Color Light Yellow Urine Appearance Clear (Clear) Urine pH 6.5 (5.0-8.0) Ur Specific [place] 1.026 (1.001-1.035) Urine Protein Negative (Negative) Urine Glucose (UA) 4+ H (Negative) Urine Ketones 1+ H (Negative) Urine Blood Negative (Negative) Urine Nitrite Negative (Negative) Urine Bilirubin Negative (Negative) Urine Urobilinogen <2.0 (<2.0) mg/dL Ur Leukocyte Esterase Negative (Negative) 10/19/21 Range/Units 17:59 WBC (3.8-10.6) k/uL RBC (4.30-5.90) m/uL Hgb (13.0-17.5) gm/dL Hct (39.0-53.0) % MCV (80.0-100.0) fL MCH (25.0-35.0) pg MCHC (31.0-37.0) g/dL RDW (11.5-15.5) % Plt Count (150-450) k/uL MPV Neutrophils % % Lymphocytes % % Monocytes % % Eosinophils % % Basophils % % Neutrophils # (1.3-7.7) k/uL Lymphocytes # (1.0-4.8) k/uL Monocytes # (0-1.0) k/uL Eosinophils # (0-0.7) k/uL Basophils # (0-0.2) k/uL Sodium (137-145) mmol/L Potassium (3.5-5.1) mmol/L Chloride (98-107) mmol/L Carbon Dioxide (22-30) mmol/L Anion Gap mmol/L BUN (9-20) mg/dL Creatinine (0.66-1.25) mg/dL Est GFR (CKD-EPI)AfAm (>60 ml/min/1.73 sqM) Est GFR (CKD-EPI)NonAf (>60 ml/min/1.73 sqM) Glucose (74-99) mg/dL POC Glucose (mg/dL) 300 H (75-99) mg/dL POC Glu Spool Tender ID Rebecca Mckeon Calcium (8.4-10.2) mg/dL Magnesium (1.6-2.3) mg/dL Total Bilirubin (0.2-1.3) mg/dL AST (17-59) U/L ALT (4-49) U/L Alkaline Phosphatase (38-126) U/L Total Protein (6.3-8.2) g/dL Albumin (3.5-5.0) g/dL Urine Color Urine Appearance (Clear) Urine pH (5.0-8.0) Ur Specific [place] (1.001-1.035) Urine Protein (Negative) Urine Glucose (UA) (Negative) Urine Ketones (Negative) Urine Blood (Negative) Urine Nitrite (Negative) Urine Bilirubin (Negative) Urine Urobilinogen (<2.0) mg/dL Ur Leukocyte Esterase (Negative) Disposition Clinical Impression: Hyperglycemia Disposition: HOME SELF-CARE Condition: Good Instructions (If sedation given, give patient instructions): Diabetic Hyperglycemia (ED) Additional Instructions: Increase your fluid intake. Change the site of your pump to determine if this is related to absorption. Return to emergency with any new or concerning symptoms. Is patient prescribed a controlled substance at d/c from ED?: No Referrals: None,Stated [Primary Care Provider] - 1-2 days Time of Disposition: 18:05
[2021-10-19 16:55] LABS: Appearance,Urine Clear (Clear); Bilirubin,Urine Negative (Negative); Blood,Urine Negative (Negative); Color,Urine Light Yellow; Glucose,Urine (UA) 4+ (Negative); Ketones,Urine 1+ (Negative); Leukocyte Esterase,Urine Negative (Negative); Nitrite,Urine Negative (Negative); PH, Urine 6.5 (5.0-8.0); Protein,Urine Negative (Negative); Specific Gravity,Urine 1.026 (1.001-1.035); Urobilinogen,Urine <2.0 mg/dL (<2.0)
[2021-10-19 16:57] LABS: Basophils # (A) 0.1 k/uL (0-0.2); Basophils % (A) 2 %; Eosinophils # (A) 0.4 k/uL (0-0.7); Eosinophils % (A) 6 %; HCT 47.4 % (39.0-53.0); HGB 16.4 gm/dL (13.0-17.5); Lymphocytes # (A) 1.6 k/uL (1.0-4.8); Lymphocytes % (A) 21 %; MCH 29.8 pg (25.0-35.0); MCHC 34.6 g/dL (31.0-37.0); Mean Platelet Volume 7.6; Monocytes # (A) 0.3 k/uL (0-1.0); Monocytes % (A) 4 %; Neutrophils % (A) 66 %; Platelet Count 233 k/uL (150-450); RBC 5.51 m/uL (4.30-5.90); RDW 13.4 % (11.5-15.5); WBC 7.6 k/uL (3.8-10.6)
[2021-10-19 17:00] LABS: ALT 37 U/L (4-49); AST 26 U/L (17-59); African American GFR (CKD) >90 (>60 ml/min/1.73 sqM); Albumin 4.6 g/dL (3.5-5.0); Alkaline Phosphatase 112 U/L (38-126); Anion Gap 9 mmol/L; Blood Urea Nitrogen 18 mg/dL (9-20); Calcium 9.3 mg/dL (8.4-10.2); Carbon Dioxide 25 mmol/L (22-30); Chloride 99 mmol/L (98-107); Glucose 373 mg/dL (74-99); Magnesium 1.8 mg/dL (1.6-2.3); Non-African American GFR(CKD) >90 (>60 ml/min/1.73 sqM); Potassium 4.8 mmol/L (3.5-5.1); Sodium 133 mmol/L (137-145); Total Bilirubin 1.1 mg/dL (0.2-1.3); Total Protein 7.2 g/dL (6.3-8.2)
--- NOTE | 2021-10-19 17:35 | XR ---
EXAMINATION TYPE: XR chest 2V DATE OF EXAM: 10/19/2021 4:57 PM COMPARISON:Multiple radiographs, with the most recent on 07/20/2021 TECHNIQUE: XR chest 2V Frontal and lateral views of the chest. CLINICAL INDICATION:Male, 31 years old with history of Weakness; FINDINGS: Lungs/Pleura: There is no evidence of pleural effusion, focal consolidation, or pneumothorax. Pulmonary vascularity: Unremarkable. Heart/mediastinum: Cardiomediastinal silhouette is unremarkable. Musculoskeletal: No acute osseous pathology. IMPRESSION: No acute cardiopulmonary disease/process.
[2021-10-19 18:01] LABS: Glucose,Whole Blood 300 mg/dL (75-99)
[2021-10-19 18:58] VITALS: BP 132/85; PULSE 80
== END 2021-10-19 18:58 | disposition home or self-care (01) ==
LOC: EC 14:05
DX: R73.9 Hyperglycemia, unspecified (principal); J45.909 Unspecified asthma, uncomplicated; F17.209 Nicotine dependence, unspecified, with unspecified nicotine-induced disorders
CPT/HCPCS: 36415; 71046; 80053; 81003; 83735; 85025; 96360; 99284

== ENCOUNTER 2021-11-28 22:10 | Emergency (ER) | payer OTHER ==
[2021-11-28 22:42] VITALS: BP 124/72; PULSE 77; RESP 18; TEMP 98.5
== END 2021-11-29 00:12 | disposition left against medical advice (07) ==
LOC: EC 22:10
DX: Z53.21 Procedure and treatment not carried out due to patient leaving prior to being seen by health care provider (principal)
CPT/HCPCS: 87502; 87635; 99499

== ENCOUNTER 2021-11-30 06:13 | Emergency (ER) | payer OTHER ==
[2021-11-30 06:17] VITALS: BP 132/85; PULSE 82; RESP 18; TEMP 98.1
[2021-11-30] MEDS ORDERED: LIDOCAINE VISCOUS 2% 15 ML CUP MUCOUS MEM ONE (06:37)
--- NOTE | 2021-11-30 06:42 | ED ---
General Adult HPI - General Chief complaint: ENT Stated complaint: Throat pain Time Seen by Provider: 11/30/21 06:15 Source: patient, RN notes reviewed Mode of arrival: ambulatory Limitations: no limitations - History of Present Illness Initial comments: This a 31-year-old male presents emergency from January sore throat. Patient tested positive for: 19 2 days ago. Patient states that it's painful sore throat is no difficulty swelling states is just painful no shortness of breath he's had fever or chills body aches. Patient states that he started a couple [id number] medications with no major relief. Patient's blood sugar has been within normal limits. Patient states he has no nausea vomiting diarrhea constipation patient offers not complaints. - Related Data Home Medications Medication Instructions Recorded Confirmed Insulin Aspart (For Pump) [NovoLOG 0.01 unit SQ-PUMP CONTINUOUS 12/20/20 10/19/21 (For Pump)] amLODIPine [Norvasc] 2.5 mg PO DIRECTED 10/19/21 10/19/21 hydrOXYzine pamoate [Vistaril] 25 mg PO DIRECTED 10/19/21 10/19/21 Previous Rx's Medication Instructions Recorded guaiFENesin [Mucinex] 600 mg PO Q12HR PRN #20 tab 08/17/21 Lidocaine Viscous [Xylocaine 5 - 10 mg PO QID #100 ml 11/30/21 Viscous 2%] Allergies Allergy/AdvReac Type Severity Reaction Status Date / Time No Known Allergies Allergy Verified 11/30/21 06:17 Review of Systems ROS Statement: Those systems with pertinent positive or pertinent negative responses have been documented in the HPI. ROS Other: All systems not noted in ROS Statement are negative. Past Medical History Past Medical History: Asthma, Diabetes Mellitus, GERD/Reflux Additional Past Medical History / Comment(s): DM type I, gastroparesis, Covid End of Jul 2020 History of Any Multi-Drug Resistant Organisms: None Reported Past Surgical History: Cholecystectomy Past Anesthesia/Blood Transfusion Reactions: Postoperative Nausea & Vomiting (PONV) Additional Past Anesthesia/Blood Transfusion Reaction / Comment(s): Pt has never received blood. Past Psychological History: No Psychological Hx Reported Smoking Status: Vaper Past Alcohol Use History: Occasional Past Drug Use History: None Reported - Past Family History Father Family Medical History: Diabetes Mellitus, Hypertension Additional Family Medical History / Comment(s): type II diabetes. Mother Family Medical History: COPD Brother(s) Family Medical History: Diabetes Mellitus Additional Family Medical History / Comment(s): IDDM type I Sister(s) Family Medical History: No Reported History General Exam Limitations: no limitations General appearance: alert, in no apparent distress Head exam: Present: atraumatic, normocephalic, normal inspection Eye exam: Present: normal appearance, PERRL, EOMI. Absent: scleral icterus, conjunctival injection, periorbital swelling ENT exam: Present: mucous membranes moist, TM's normal bilaterally, normal external ear exam. Absent: normal oropharynx (Mild erythema, swallowing secreti ons well no swelling) Neck exam: Present: normal inspection, full ROM. Absent: tenderness, meningismus, lymphadenopathy Respiratory exam: Present: normal lung sounds bilaterally. Absent: respiratory distress, wheezes, rales, rhonchi, stridor Cardiovascular Exam: Present: regular rate, normal rhythm, normal heart sounds. Absent: systolic murmur, diastolic murmur, rubs, gallop, clicks Course Vital Signs 11/30/21 06:14 Temperature 98.1 F Pulse Rate 82 Respiratory 18 Rate Blood Pressure 132/85 O2 Sat by Pulse 98 Oximetry Medical Decision Making - Medical Decision Making Patient is covid 19 positive. Patient has sores throat associated with Covid 19, postnasal drainage. Patient will be discharged in stable condition return parameters discussed. Disposition Clinical Impression: COVID-19, Acute pharyngitis Disposition: HOME SELF-CARE Condition: Stable Instructions (If sedation given, give patient instructions): COVID-19 (Coronavirus Disease 2019) (ED) Additional Instructions: Please return to the Emergency Department if symptoms worsen or any other concerns. Prescriptions: Lidocaine Viscous [Xylocaine Viscous 2%] 5 - 10 mg PO QID #100 ml Is patient prescribed a controlled substance at d/c from ED?: No Referrals: Lenka Chowdhury [Primary Care Provider] - 1-2 days Time of Disposition: 06:42
== END 2021-11-30 06:49 | disposition home or self-care (01) ==
LOC: EC 06:13
DX: U07.1 COVID-19 (principal); J45.909 Unspecified asthma, uncomplicated; E11.9 Type 2 diabetes mellitus without complications
CPT/HCPCS: 99283

== ENCOUNTER 2022-04-19 16:52 | Emergency (ER) | payer OTHER ==
[2022-04-19 17:20] VITALS: BP 129/79; PULSE 86; RESP 16; TEMP 98
[2022-04-19 19:23] LABS: Glucose,Whole Blood 210 mg/dL (70-110)
[2022-04-19] MEDS ORDERED: dexAMETHasone 4 MG TAB PO STA (19:40)
--- NOTE | 2022-04-19 19:41 | ED ---
General Adult HPI - General Chief complaint: Upper Respiratory Infection Stated complaint: Covid Test Time Seen by Provider: 04/19/22 19:12 Source: patient, RN notes reviewed, old records reviewed Mode of arrival: ambulatory Limitations: no limitations - History of Present Illness Initial comments: She is a 32-year-old male with type 1 diabetes who presents emergency Department complaining of upper respirations symptoms seeking a Covid test. Has previously had Covid. Was not vaccinated. States his sugars have been well-controlled anywhere from 150-300. They're currently 210. Denies any nausea or vomiting. Denies diarrhea. Endorses rhinorrhea, mild headache, no sore throat. No known sick contacts. Head congestion. Is concerned he has Covid. Presents for further evaluation at this time. Does have a history of asthma. Is on an insulin pump. - Related Data Home Medications Medication Instructions Recorded Confirmed Insulin Aspart (For Pump) [NovoLOG 0.01 unit SQ-PUMP CONTINUOUS 12/20/20 10/19/21 (For Pump)] amLODIPine [Norvasc] 2.5 mg PO DIRECTED 10/19/21 10/19/21 hydrOXYzine pamoate [Vistaril] 25 mg PO DIRECTED 10/19/21 10/19/21 Previous Rx's Medication Instructions Recorded guaiFENesin [Mucinex] 600 mg PO Q12HR PRN #20 tab 08/17/21 Lidocaine Viscous [Xylocaine 5 - 10 mg PO QID #100 ml 11/30/21 Viscous 2%] Allergies Allergy/AdvReac Type Severity Reaction Status Date / Time No Known Allergies Allergy Verified 04/19/22 17:20 Review of Systems ROS Statement: Those systems with pertinent positive or pertinent negative responses have been documented in the HPI. Review of Systems: CONST: Denies fever EYES: Denies blurry vision ENT: Endorses nasal congestion C/V: Denies Chest pain RESP: Denies shortness of breath GI: Denies abdominal pain : Denies dysuria SKIN: Denies rash. MSK: Denies joint pain. NEURO: Denies headache ROS Other: All systems not noted in ROS Statement are negative. Past Medical History Past Medical History: Asthma, Diabetes Mellitus, GERD/Reflux Additional Past Medical History / Comment(s): DM type I, gastroparesis, Covid End of Jul 2020 History of Any Multi-Drug Resistant Organisms: None Reported Past Surgical History: Cholecystectomy Past Anesthesia/Blood Transfusion Reactions: Postoperative Nausea & Vomiting (PONV) Additional Past Anesthesia/Blood Transfusion Reaction / Comment(s): Pt has never received blood. Past Psychological History: No Psychological Hx Reported Smoking Status: Vaper Past Alcohol Use History: Occasional Past Drug Use History: None Reported - Past Family History Father Family Medical History: Diabetes Mellitus, Hypertension Additional Family Medical History / Comment(s): type II diabetes. Mother Family Medical History: COPD Brother(s) Family Medical History: Diabetes Mellitus Additional Family Medical History / Comment(s): IDDM type I Sister(s) Family Medical History: No Reported History General Exam - General Exam Comments Initial Comments: General: Appears in no acute distress. HEAD: Normal with no signs of head trauma. EYES: EOMI ENT: Hearing grossly intact, normal oropharynx. RESPIRATORY: Clear breath sounds bilaterally. No wheezes, rales, or rhonchi. No hypoxia. No increased work of breathing. C/V: Regular rate and rhythm. S1 and S2 auscultated, no edema, peripheral pulses 2+ and intact throughout ABD: Abd is soft, nontender, nondistended EXT: Normal range of motion, no obvious deformity SKIN: No rashes or lesions observed on exposed skin. NEURO: Alert and oriented 4. Limitations: no limitations Course Vital Signs 04/19/22 17:16 Temperature 98 F Pulse Rate 86 Respiratory 16 Rate Blood Pressure 129/79 O2 Sat by Pulse 98 Oximetry Medical Decision Making - Medical Decision Making Based on the patient's presentation and physical exam, he is a type I diabetic with concern for COVID-19 infection. I evaluated the patient after Covid so was already obtained. It is negative. His point of care blood sugar is within normal limits. Likely is not presenting as a DKA patient. Is tolerating oral intake. Sugars have been adequate. Vital signs within normal limits. I did discuss with him that I can provide him with a one-time dose of steroids but he should be aware that we will increase his blood sugars. He was in agreement this plan. Otherwise can use [id number] medications to manage his upper respiratory infection. Recommended strict return precautions as well as follow up with his physician. He was in agreement with this plan. Vital signs within normal limits. I instructed the patient to follow up with their PCP in the next 1-3 days. I explained that the patient should return to the emergency department if they experience any worsening symptoms. Strict return precautions were discussed with the patient. The patient expressed understanding of these instructions. I answered all questions that the patient had. The patient was discharged home in good condition with their prescriptions and follow up information. - Lab Data Lab Results 04/19/22 04/19/22 Range/Units 17:21 19:20 POC Glucose (mg/dL) 210 H (70-110) mg/dL POC Glu Customer Solutions Architect ID Reina Luna Coronavirus (PCR) Not Detected (Not Detectd) Disposition Clinical Impression: URI (upper respiratory infection), Encounter for screening for COVID-19 Disposition: HOME SELF-CARE Condition: Good Instructions (If sedation given, give patient instructions): Upper Respiratory Infection (ED) Is patient prescribed a controlled substance at d/c from ED?: No Referrals: Lenka Chowdhury [Primary Care Provider] - 1-2 days Time of Disposition: 19:30
== END 2022-04-19 20:05 | disposition home or self-care (01) ==
LOC: EC 16:52
DX: J06.9 Acute upper respiratory infection, unspecified (principal); F17.290 Nicotine dependence, other tobacco product, uncomplicated; J45.909 Unspecified asthma, uncomplicated; K21.9 Gastro-esophageal reflux disease without esophagitis; E10.8 Type 1 diabetes mellitus with unspecified complications; Z79.4 Long term (current) use of insulin; Z86.16 Personal history of COVID-19; Z20.822 Contact with and (suspected) exposure to COVID-19; Z79.899 Other long term (current) drug therapy
CPT/HCPCS: 36415; 87635; 99283; J8540

== ENCOUNTER 2022-05-30 18:19 | Emergency (ER) | payer OTHER ==
[2022-05-30 18:31] VITALS: TEMP 98.1
[2022-05-30 18:48] LABS: Glucose,Whole Blood 244 mg/dL (70-110)
[2022-05-30 19:03] LABS: Basophils # (A) 0.1 k/uL (0-0.2); Basophils % (A) 1 %; Eosinophils # (A) 0.5 k/uL (0-0.7); Eosinophils % (A) 7 %; HCT 42.4 % (39.0-53.0); HGB 15.4 gm/dL (13.0-17.5); Lymphocytes # (A) 1.4 k/uL (1.0-4.8); Lymphocytes % (A) 20 %; MCH 30.3 pg (25.0-35.0); MCHC 36.2 g/dL (31.0-37.0); MCV 83.8 fL (80.0-100.0); Mean Platelet Volume 8.1; Monocytes # (A) 0.3 k/uL (0-1.0); Monocytes % (A) 4 %; Neutrophils # (A) 4.7 k/uL (1.3-7.7); Neutrophils % (A) 67 %; Platelet Count 225 k/uL (150-450); RBC 5.06 m/uL (4.30-5.90); RDW 12.8 % (11.5-15.5)
[2022-05-30 19:12] LABS: ALT 31 U/L (4-49); AST 26 U/L (17-59); African American GFR (CKD) >90 (>60 ml/min/1.73 sqM); Albumin 4.2 g/dL (3.5-5.0); Alkaline Phosphatase 103 U/L (38-126); Anion Gap 8 mmol/L; Blood Urea Nitrogen 18 mg/dL (9-20); Calcium 8.7 mg/dL (8.4-10.2); Carbon Dioxide 26 mmol/L (22-30); Chloride 101 mmol/L (98-107); Glucose 260 mg/dL (74-99); Non-African American GFR(CKD) >90 (>60 ml/min/1.73 sqM); Potassium 4.3 mmol/L (3.5-5.1); Sodium 135 mmol/L (137-145); Total Bilirubin 1.1 mg/dL (0.2-1.3); Total Protein 6.4 g/dL (6.3-8.2)
[2022-05-30] MEDS ORDERED: SODIUM CHLORIDE 0.9% 1,000 ML IV ONE (19:25)
--- NOTE | 2022-05-30 20:19 | XR ---
EXAMINATION TYPE: XR chest 2V DATE OF EXAM: 05/30/2022 COMPARISON: Chest x-ray October 19, 2021 HISTORY: Chest pain. TECHNIQUE: Frontal and lateral views of the chest are obtained. FINDINGS: Somewhat low lung volumes and mild chronic parenchymal changes. There is no suspicious new focal air space opacity, pleural effusion, or pneumothorax seen. The cardiac silhouette size is sta ble and within normal limits. The osseous structures are intact. IMPRESSION: No acute process. No significant change from prior.
--- NOTE | 2022-05-30 20:42 | ED ---
General Adult HPI - General Chief complaint: Recheck/Abnormal Lab/Rx Stated complaint: Hyperglycemia, Chest Pain Time Seen by Provider: 05/30/22 18:57 Source: patient Mode of arrival: ambulatory - History of Present Illness Initial comments: This is a 32-year-old male with a past medical history including type 1 diabetes presents to emergency department for abnormally high glucose as well as left- sided chest pain. The patient stated that he just returned from a hunting trip and did state that his blood sugar was abnormally high in the 400 over last 1 day. The patient stated that he did experience left-sided chest pain that was sore starting at 2 PM earlier today. The patient stated that he has not had similar symptoms like this in the past. The patient denied any trauma to his chest was concerned about his blood glucose as he stated that he is only having uncontrolled glycemia when he has a illness such as coed as he has had before. The patient denied any recent other symptoms including any nausea, vomiting as well as any fevers and chills. - Related Data Home Medications Medication Instructions Recorded Confirmed Insulin Aspart (For Pump) [NovoLOG 0.01 unit SQ-PUMP CONTINUOUS 12/20/20 05/30/22 (For Pump)] Ondansetron [Zofran] 4 mg PO DAILY PRN 05/30/22 05/30/22 Allergies Allergy/AdvReac Type Severity Reaction Status Date / Time No Known Allergies Allergy Verified 05/30/22 19:19 Review of Systems ROS Statement: Those systems with pertinent positive or pertinent negative responses have been documented in the HPI. ROS Other: All systems not noted in ROS Statement are negative. Past Medical History Past Medical History: Asthma, Diabetes Mellitus, GERD/Reflux Additional Past Medical History / Comment(s): DM type I, gastroparesis, Covid End of Jul 2020 History of Any Multi-Drug Resistant Organisms: None Reported Past Surgical History: Cholecystectomy Past Anesthesia/Blood Transfusion Reactions: Postoperative Nausea & Vomiting (PONV) Additional Past Anesthesia/Blood Transfusion Reaction / Comment(s): Pt has never received blood. Past Psychological History: No Psychological Hx Reported Smoking Status: Vaper Past Alcohol Use History: Occasional Past Drug Use History: None Reported - Past Family History Father Family Medical History: Diabetes Mellitus, Hypertension Additional Family Medical History / Comment(s): type II diabetes. Mother Family Medical History: COPD Brother(s) Family Medical History: Diabetes Mellitus Additional Family Medical History / Comment(s): IDDM type I Sister(s) Family Medical History: No Reported History General Exam Limitations: no limitations General appearance: alert, in no apparent distress Head exam: Present: atraumatic, normocephalic Eye exam: Present: normal appearance, PERRL, EOMI Pupils: Present: normal accommodation ENT exam: Present: normal exam, normal oropharynx, mucous membranes moist Neck exam: Present: normal inspection, full ROM Respiratory exam: Present: normal lung sounds bilaterally Cardiovascular Exam: Present: regular rate, normal rhythm, normal heart sounds GI/Abdominal exam: Present: soft, normal bowel sounds Rectal exam: Present: deferred Extremities exam: Present: normal inspection, full ROM, normal capillary refill Back exam: Present: normal inspection, full ROM Neurological exam: Present: alert, oriented X3, CN II-XII intact Psychiatric exam: Present: normal affect, normal mood Skin exam: Present: warm, dry Course Vital Signs 05/30/22 05/30/22 18:27 20:57 Temperature 98.1 F Pulse Rate 102 H 81 Respiratory 18 16 Rate Blood Pressure 128/84 121/79 O2 Sat by Pulse 97 98 Oximetry EKG Findings - EKG Comments: EKG Findings:: An EKG was obtained and was read by myself. EKG showed a rate of 89, NH interval of 119, QRS duration 103 and QTC of 388. This EKG showed normal sinus rhythm with no ST segment elevations or depressions noted. There was no old EKGs for comparison at this time. Medical Decision Making - Medical Decision Making The patient was seen and evaluated in the emergency department. Physical exam, the patient was resting in bed without any acute distress. Vital signs on admission were stable and within normal limits. Laboratory workup was obtained and did show a blood glucose in the mid 200 range. The rest of laboratory workup was within normal limits. A chest x-ray was obtained and was within normal limits. Troponin was negative. The patient denied any recurrence of his chest pain. Patient's troponin was also negative. The patient did receive 1 L normal saline fluid and was told that he likely had a viral illness causing his sugars to be uncontrolled. The patient had a negative COVID-19 test. The patient was advised to continue to monitor his blood sugars closely and to follow-up with his trimmer hand for further workup and evaluation. Patient was agreeable to this and all discretions were answered. The patient was discharged home in stable condition. - Lab Data Result diagrams: 05/30/22 18:51 05/30/22 18:51 Lab Results 05/30/22 05/30/22 05/30/22 Range/Units 18:46 18:51 18:51 WBC 7.0 (3.8-10.6) k/uL RBC 5.06 (4.30-5.90) m/uL Hgb 15.4 (13.0-17.5) gm/dL Hct 42.4 (39.0-53.0) % MCV 83.8 (80.0-100.0) fL MCH 30.3 (25.0-35.0) pg MCHC 36.2 (31.0-37.0) g/dL RDW 12.8 (11.5-15.5) % Plt Count 225 (150-450) k/uL MPV 8.1 Neutrophils % 67 % Lymphocytes % 20 % Monocytes % 4 % Eosinophils % 7 % Basophils % 1 % Neutrophils # 4.7 (1.3-7.7) k/uL Lymphocytes # 1.4 (1.0-4.8) k/uL Monocytes # 0.3 (0-1.0) k/uL Eosinophils # 0.5 (0-0.7) k/uL Basophils # 0.1 (0-0.2) k/uL Sodium 135 L (137-145) mmol/L Potassium 4.3 (3.5-5.1) mmol/L Chloride 101 (98-107) mmol/L Carbon Dioxide 26 (22-30) mmol/L Anion Gap 8 mmol/L BUN 18 (9-20) mg/dL Creatinine 0.81 (0.66-1.25) mg/dL Est GFR (CKD-EPI)AfAm >90 (>60 ml/min/1.73 sqM) Est GFR (CKD-EPI)NonAf >90 (>60 ml/min/1.73 sqM) Glucose 260 H (74-99) mg/dL POC Glucose (mg/dL) 244 H (70-110) mg/dL POC Glu Mathematical Scientist ID Willing, Reina Calcium 8.7 (8.4-10.2) mg/dL Total Bilirubin 1.1 (0.2-1.3) mg/dL AST 26 (17-59) U/L ALT 31 (4-49) U/L Alkaline Phosphatase 103 (38-126) U/L Troponin I (0.000-0.034) ng/mL Total Protein 6.4 (6.3-8.2) g/dL Albumin 4.2 (3.5-5.0) g/dL Acetone, Qual Positive (Negative) Coronavirus (PCR) (Not Detectd) 05/30/22 05/30/22 Range/Units 18:51 18:51 WBC (3.8-10.6) k/uL RBC (4.30-5.90) m/uL Hgb (13.0-17.5) gm/dL Hct (39.0-53.0) % MCV (80.0-100.0) fL MCH (25.0-35.0) pg MCHC (31.0-37.0) g/dL RDW (11.5-15.5) % Plt Count (150-450) k/uL MPV Neutrophils % % Lymphocytes % % Monocytes % % Eosinophils % % Basophils % % Neutrophils # (1.3-7.7) k/uL Lymphocytes # (1.0-4.8) k/uL Monocytes # (0-1.0) k/uL Eosinophils # (0-0.7) k/uL Basophils # (0-0.2) k/uL Sodium (137-145) mmol/L Potassium (3.5-5.1) mmol/L Chloride (98-107) mmol/L Carbon Dioxide (22-30) mmol/L Anion Gap mmol/L BUN (9-20) mg/dL Creatinine (0.66-1.25) mg/dL Est GFR (CKD-EPI)AfAm (>60 ml/min/1.73 sqM) Est GFR (CKD-EPI)NonAf (>60 ml/min/1.73 sqM) Glucose (74-99) mg/dL POC Glucose (mg/dL) (70-110) mg/dL POC Glu Mathematical Scientist ID Calcium (8.4-10.2) mg/dL Total Bilirubin (0.2-1.3) mg/dL AST (17-59) U/L ALT (4-49) U/L Alkaline Phosphatase (38-126) U/L Troponin I <0.012 (0.000-0.034) ng/mL Total Protein (6.3-8.2) g/dL Albumin (3.5-5.0) g/dL Acetone, Qual (Negative) Coronavirus (PCR) Not Detected (Not Detectd) Disposition Clinical Impression: Chest pain, Hyperglycemia Disposition: HOME SELF-CARE Condition: Stable Instructions (If sedation given, give patient instructions): Chest Pain (ED), Diabetic Hyperglycemia (ED) Is patient prescribed a controlled substance at d/c from ED?: No Referrals: Lenka Chowdhury [Primary Care Provider] - 1-2 days Time of Disposition: 20:35
[2022-05-30 20:59] VITALS: BP 121/79; PULSE 81; RESP 16
== END 2022-05-30 20:59 | disposition home or self-care (01) ==
LOC: EC 18:19
DX: R07.89 Other chest pain (principal); J45.909 Unspecified asthma, uncomplicated; E10.65 Type 1 diabetes mellitus with hyperglycemia; F17.290 Nicotine dependence, other tobacco product, uncomplicated; Z79.4 Long term (current) use of insulin; Z20.822 Contact with and (suspected) exposure to COVID-19
CPT/HCPCS: 36415; 71046; 80053; 82009; 84484; 85025; 87635; 93005; 96360; 99285

== ENCOUNTER 2022-06-25 00:01 | Emergency (ER) | payer OTHER ==
[2022-06-25 00:19] VITALS: PULSE 78; TEMP 98
[2022-06-25] MEDS ORDERED: SODIUM CHLORIDE 0.9% 1,000 ML IV STA (01:51)
--- NOTE | 2022-06-25 02:16 | ED ---
General Adult HPI - General Chief complaint: Recheck/Abnormal Lab/Rx Stated complaint: Sugar Issues Time Seen by Provider: 06/25/22 01:51 Source: patient Mode of arrival: ambulatory Limitations: no limitations - History of Present Illness Initial comments: Dictation was produced using [employer] dictation software. please excuse any grammatical, word or spelling errors. Chief Complaint: 32-year-old insulin-dependent diabetic presents emergency Department with sore throat, runny nose and facial pain History of Present Illness: Patient is 32-year-old male presents emergency Department with sore throat runny nose and facial pain. States that his symptoms have been ongoing for the last 2-3 days. He is a type 1 insulin- dependent diabetic.At his blood sugars have been much more labile recently. Any obvious sick exposures. Does report some shaking chills. Denies any fevers. The ROS documented in this emergency department record has been reviewed and confirmed by me. Those systems with pertinent positive or negative responses have been documented in the HPI. All other systems are other negative and/or noncontributory. PHYSICAL EXAM: General Impression: Alert and oriented x3, not in acute distress HEENT: Normocephalic atraumatic, extra-ocular movements intact, pupils equal and reactive to light bilaterally, mucous membranes moist. Cardiovascular: Heart regular rate and rhythm Chest: Able to complete full sentences, no retractions, no tachypnea Abdomen: abdomen soft, non-tender, non-distended, no organomegaly Musculoskeletal: Pulses present and equal in all extremities, no peripheral edema Motor: no focal deficits noted Neurological: CN II-XII grossly intact, no focal motor or sensory deficits noted Skin: Intact with no visualized rashes Psych: Normal affect and mood ED course: 32-year-old male presents emergency Department with respiratory infectious symptoms. Vital signs upon arrival are within acceptable limits. Nursing notes and chart review was performed Laboratory evaluation obtained. CBC, metabolic panel is unremarkable. Viral panel is unremarkable. Patient reevaluated at bedside at 420 and found to be similar condition. Discussed concern of acute sinusitis given patient's complaints. Patient prescription for Augmentin and advised follow-up with primary care doctor. - Related Data Home Medications Medication Instructions Recorded Confirmed RX: Insulin Aspart (For Pump) 0.01 unit SQ-PUMP CONTINUOUS 12/20/20 05/30/22 [NovoLOG (For Pump)] Ondansetron [Zofran] 4 mg PO DAILY PRN 05/30/22 05/30/22 Previous Rx's Medication Instructions Recorded Amoxic-Pot Clav 875-125Mg 1 tab PO BID 10 Days #20 tab 06/25/22 [Augmentin 875-125] Allergies Allergy/AdvReac Type Severity Reaction Status Date / Time No Known Allergies Allergy Verified 06/25/22 00:19 Review of Systems ROS Statement: Those systems with pertinent positive or pertinent negative responses have been documented in the HPI. ROS Other: All systems not noted in ROS Statement are negative. Past Medical History Past Medical History: Asthma, Diabetes Mellitus, GERD/Reflux Additional Past Medical History / Comment(s): DM type I, gastroparesis, Covid End of Jul 2020 History of Any Multi-Drug Resistant Organisms: None Reported Past Surgical History: Cholecystectomy Past Anesthesia/Blood Transfusion Reactions: Postoperative Nausea & Vomiting (PONV) Additional Past Anesthesia/Blood Transfusion Reaction / Comment(s): Pt has never received blood. Past Psychological History: No Psychological Hx Reported Smoking Status: Vaper Past Alcohol Use History: Occasional Past Drug Use History: None Reported - Past Family History Father Family Medical History: Diabetes Mellitus, Hypertension Additional Family Medical History / Comment(s): type II diabetes. Mother Family Medical History: COPD Brother(s) Family Medical History: Diabetes Mellitus Additional Family Medical History / Comment(s): IDDM type I Sister(s) Family Medical History: No Reported History General Exam Limitations: no limitations Course Vital Signs 06/25/22 00:17 Temperature 98 F Pulse Rate 78 Respiratory 18 Rate Blood Pressure 137/84 O2 Sat by Pulse 98 Oximetry Medical Decision Making - Lab Data Result diagrams: 06/25/22 02:55 06/25/22 02:55 Lab Results 06/25/22 06/25/22 06/25/22 Range/Units 02:55 02:55 02:55 WBC 8.4 (3.8-10.6) k/uL RBC 5.21 (4.30-5.90) m/uL Hgb 15.4 (13.0-17.5) gm/dL Hct 43.1 (39.0-53.0) % MCV 82.8 (80.0-100.0) fL MCH 29.7 (25.0-35.0) pg MCHC 35.8 (31.0-37.0) g/dL RDW 12.9 (11.5-15.5) % Plt Count 232 (150-450) k/uL MPV 7.9 Neutrophils % 54 % Lymphocytes % 32 % Monocytes % 4 % Eosinophils % 7 % Basophils % 1 % Neutrophils # 4.5 (1.3-7.7) k/uL Lymphocytes # 2.7 (1.0-4.8) k/uL Monocytes # 0.4 (0-1.0) k/uL Eosinophils # 0.6 (0-0.7) k/uL Basophils # 0.1 (0-0.2) k/uL Sodium 139 (137-145) mmol/L Potassium 3.8 (3.5-5.1) mmol/L Chloride 102 (98-107) mmol/L Carbon Dioxide 30 (22-30) mmol/L Anion Gap 7 mmol/L BUN 15 (9-20) mg/dL Creatinine 0.76 (0.66-1.25) mg/dL Est GFR (CKD-EPI)AfAm >90 (>60 ml/min/1.73 sqM) Est GFR (CKD-EPI)NonAf >90 (>60 ml/min/1.73 sqM) Glucose 102 H (74-99) mg/dL Calcium 9.5 (8.4-10.2) mg/dL Influenza Type A (PCR) Not Detected (Not Detectd) Influenza Type B (PCR) Not Detected (Not Detectd) RSV (PCR) Not Detected (Not Detectd) SARS-CoV-2 (PCR) Not Detected (Not Detectd) Disposition Clinical Impression: Sinusitis Disposition: HOME SELF-CARE Condition: Good Instructions (If sedation given, give patient instructions): Sinusitis (ED) Prescriptions: Amoxic-Pot Clav 875-125Mg [Augmentin 875-125] 1 tab PO BID 10 Days #20 tab Is patient prescribed a controlled substance at d/c from ED?: No Referrals: Lenka Chowdhury [Primary Care Provider] - 1-2 days Time of Disposition: 04:20
[2022-06-25 03:34] LABS: Basophils # (A) 0.1 k/uL (0-0.2); Basophils % (A) 1 %; Eosinophils # (A) 0.6 k/uL (0-0.7); Eosinophils % (A) 7 %; HCT 43.1 % (39.0-53.0); HGB 15.4 gm/dL (13.0-17.5); Lymphocytes # (A) 2.7 k/uL (1.0-4.8); Lymphocytes % (A) 32 %; MCH 29.7 pg (25.0-35.0); MCHC 35.8 g/dL (31.0-37.0); MCV 82.8 fL (80.0-100.0); Mean Platelet Volume 7.9; Monocytes # (A) 0.4 k/uL (0-1.0); Monocytes % (A) 4 %; Neutrophils # (A) 4.5 k/uL (1.3-7.7); Neutrophils % (A) 54 %; Platelet Count 232 k/uL (150-450); RBC 5.21 m/uL (4.30-5.90); RDW 12.9 % (11.5-15.5); WBC 8.4 k/uL (3.8-10.6)
[2022-06-25 03:35] LABS: African American GFR (CKD) >90 (>60 ml/min/1.73 sqM); Anion Gap 7 mmol/L; Blood Urea Nitrogen 15 mg/dL (9-20); Calcium 9.5 mg/dL (8.4-10.2); Carbon Dioxide 30 mmol/L (22-30); Chloride 102 mmol/L (98-107); Glucose 102 mg/dL (74-99); Non-African American GFR(CKD) >90 (>60 ml/min/1.73 sqM); Potassium 3.8 mmol/L (3.5-5.1); Sodium 139 mmol/L (137-145)
[2022-06-25 04:33] VITALS: BP 127/69; RESP 15
== END 2022-06-25 04:33 | disposition home or self-care (01) ==
LOC: EC 00:01
DX: J32.9 Chronic sinusitis, unspecified (principal); J45.909 Unspecified asthma, uncomplicated; E11.9 Type 2 diabetes mellitus without complications; F17.290 Nicotine dependence, other tobacco product, uncomplicated; Z79.4 Long term (current) use of insulin; Z20.822 Contact with and (suspected) exposure to COVID-19
CPT/HCPCS: 36415; 80048; 85025; 87636; 96360; 99283

== ENCOUNTER 2022-08-16 23:20 | Emergency (ER) | payer OTHER ==
[2022-08-16 23:33] VITALS: TEMP 98.2
[2022-08-17 00:02] LABS: Basophils # (A) 0.1 k/uL (0-0.2); Basophils % (A) 1 %; Eosinophils # (A) 0.5 k/uL (0-0.7); Eosinophils % (A) 5 %; HCT 43.2 % (39.0-53.0); HGB 15.4 gm/dL (13.0-17.5); Hyperchromasia Slight; Lymphocytes # (A) 2.1 k/uL (1.0-4.8); Lymphocytes % (A) 23 %; MCHC 35.7 g/dL (31.0-37.0); Mean Platelet Volume 7.6; Monocytes # (A) 0.4 k/uL (0-1.0); Monocytes % (A) 4 %; Neutrophils # (A) 5.8 k/uL (1.3-7.7); Neutrophils % (A) 64 %; Platelet Count 229 k/uL (150-450); Poikilocytosis Slight; RBC 5.14 m/uL (4.30-5.90); RDW 13.2 % (11.5-15.5); WBC 9.1 k/uL (3.8-10.6)
--- NOTE | 2022-08-17 00:04 | XR ---
EXAMINATION TYPE: XR chest 2V DATE OF EXAM: 08/16/2022 COMPARISON: 05/30/2022 HISTORY: Chest pain TECHNIQUE: FINDINGS: Heart and mediastinum appear normal. There is minimal linear density in the lower lung fiel ds. There are no hilar masses. No pleural effusion. Bony thorax is intact. There are chest leads. IMPRESSION: Minimal subsegmental atelectasis appears new compared to the old exam. Normal heart.
[2022-08-17 00:08] LABS: Partial Thromboplastin Time 24.2 sec (22.0-30.0); Prothrombin Time 10.2 sec (9.0-12.0)
[2022-08-17 00:19] LABS: ALT 40 U/L (4-49); AST 33 U/L (17-59); African American GFR (CKD) >90 (>60 ml/min/1.73 sqM); Albumin 4.7 g/dL (3.5-5.0); Alkaline Phosphatase 90 U/L (38-126); Anion Gap 6 mmol/L; Blood Urea Nitrogen 11 mg/dL (9-20); Calcium 9.2 mg/dL (8.4-10.2); Carbon Dioxide 31 mmol/L (22-30); Chloride 101 mmol/L (98-107); Glucose 120 mg/dL (74-99); Magnesium 1.6 mg/dL (1.6-2.3); Non-African American GFR(CKD) >90 (>60 ml/min/1.73 sqM); Potassium 3.5 mmol/L (3.5-5.1); Sodium 138 mmol/L (137-145); Total Bilirubin 0.9 mg/dL (0.2-1.3); Total Protein 7.2 g/dL (6.3-8.2)
[2022-08-17] MEDS ORDERED: KETOROLAC 15 MG/ML 1 ML VIAL IVP STA (00:29)
--- NOTE | 2022-08-17 00:33 | ED ---
General Adult HPI - General Chief complaint: Chest Pain Stated complaint: Chest Pain Time Seen by Provider: 08/16/22 23:34 Source: patient Mode of arrival: ambulatory Limitations: no limitations - History of Present Illness Initial comments: Patient is a 32-year-old male history of type 1 diabetes presenting with chief complaint of chest pain. Pain has been present for the last 3 days, and is located on the left side of the chest. Pain is intermittent, he notices it mostly after physical labor. He states that at times it is worse with deep b reaths. No shortness of breath. No palpitations. No nausea, vomiting, abdominal pain. No weakness, numbness, tingling. - Related Data Home Medications Medication Instructions Recorded Confirmed Insulin Aspart (For Pump) [NovoLOG 0.01 unit SQ-PUMP CONTINUOUS 12/20/20 05/30/22 (For Pump)] Ondansetron [Zofran] 4 mg PO DAILY PRN 05/30/22 05/30/22 Previous Rx's Medication Instructions Recorded Amoxic-Pot Clav 875-125Mg 1 tab PO BID 10 Days #20 tab 06/25/22 [Augmentin 875-125] Allergies Allergy/AdvReac Type Severity Reaction Status Date / Time No Known Allergies Allergy Verified 06/25/22 00:19 Review of Systems ROS Statement: Those systems with pertinent positive or pertinent negative responses have been documented in the HPI. ROS Other: All systems not noted in ROS Statement are negative. Past Medical History Past Medical History: Asthma, Diabetes Mellitus, GERD/Reflux Additional Past Medical History / Comment(s): DM type I, gastroparesis, Covid End of Jul 2020 History of Any Multi-Drug Resistant Organisms: None Reported Past Surgical History: Cholecystectomy Past Anesthesia/Blood Transfusion Reactions: Postoperative Nausea & Vomiting (PONV) Additional Past Anesthesia/Blood Transfusion Reaction / Comment(s): Pt has never received blood. Past Psychological History: No Psychological Hx Reported Smoking Status: Vaper Past Alcohol Use History: Occasional Past Drug Use History: None Reported - Past Family History Father Family Medical History: Diabetes Mellitus, Hypertension Additional Family Medical History / Comment(s): type II diabetes. Mother Family Medical History: COPD Brother(s) Family Medical History: Diabetes Mellitus Additional Family Medical History / Comment(s): IDDM type I Sister(s) Family Medical History: No Reported History General Exam Limitations: no limitations General appearance: alert, in no apparent distress Head exam: Present: atraumatic, normocephalic, normal inspection Eye exam: Present: normal appearance Neck exam: Present: normal inspection, full ROM Respiratory exam: Present: normal lung sounds bilaterally. Absent: respiratory distress, wheezes, rales, rhonchi, stridor Cardiovascular Exam: Present: regular rate, normal rhythm, normal heart sounds. Absent: systolic murmur, diastolic murmur, rubs, gallop, clicks Neurological exam: Present: alert, oriented X3, CN II-XII intact Psychiatric exam: Present: normal affect, normal mood Skin exam: Present: warm, dry, intact, normal color. Absent: rash Course Vital Signs 08/16/22 08/17/22 23:28 02:10 Temperature 98.2 F Pulse Rate 90 85 Respiratory 12 18 Rate Blood Pressure 140/87 123/75 O2 Sat by Pulse 98 96 Oximetry EKG Findings - EKG Comments: EKG Findings:: Sinus rhythm ventricular rate 90. OK interval 153. QRS 98. QT 347. QTC 395. No ischemic changes. Medical Decision Making - Medical Decision Making Was pt. sent in by a medical professional or institution (, PA, ASSISTANT PROGRAM MANAGER, urgent care, hospital, or halfway...) When possible be specific @ -No Did you speak to anyone other than the patient for history (EMS, parent, family, police, friend...)? What history was obtained from this source @ -No Did you review nursing and triage notes (agree or disagree)? Why? @ -I reviewed and agree with nursing and triage notes Were old charts reviewed (outside hosp., previous admission, EMS record, old EKG, old radiological studies, urgent care reports/EKG's, halfway records)? Report findings @ -No old charts were reviewed Differential Diagnosis (chest pain, altered mental status, abdominal pain women, abdominal pain men, vaginal bleeding, weakness, fever, dyspnea, syncope, headache, dizziness, GI bleed, back pain, seizure, CVA, palpatations, mental health)? @ -[facility] Differential Chest Pain: Stable Angina, Unstable Angina, STEMI, NSTEMI Pneumothorax, Musculoskeletal, Esophageal Spasm GERD, Cholecystitis, Pancreatitis, Zoster This is not meant to be an all-inclusive list. EKG interpreted by me (3pts min.). @ -As above X-rays interpreted by me (1pt min.). @ -Chest x-ray shows no acute process CT interpreted by me (1pt min.). @ -None done U/S interpreted by me (1pt. min.). @ -None done What testing was considered but not performed or refused? (CT, X-rays, U/S, labs)? Why? @ -None What meds were considered but not given or refused? Why? @ -None Did you discuss the management of the patient with other professionals (professionals i.e. Dr., PA, ASSISTANT PROGRAM MANAGER, lab, RT, psych nurse, outreach and education social worker, bin packer, teacher, project officer, caseworker intake)? Give summary @ -No Was smoking cessation discussed for >3mins.? @ -No Was critical care preformed (if so, how long)? @ -No Were there social determinants of health that impacted care today? How? (Homelessness, low income, unemployed, alcoholism, drug addiction, bravo sportation, low edu. Level, literacy, decrease access to med. care, half-way, rehab)? @ -No Was there de-escalation of care discussed even if they declined (Discuss DNR or withdrawal of care, Hospice)? DNR status @ -No What co-morbidities impacted this encounter? (DM, HTN, Smoking, COPD, CAD, Cancer, CVA, ARF, Chemo, Hep., AIDS, mental health diagnosis, sleep apnea, morbid obesity)? @ -Type 1 diabetes Was patient admitted / discharged? Hospital course, mention meds given and route, prescriptions, significant lab abnormalities, going to OR and other pertinent info. @ -Patient is a 32-year-old male with history of type 1 diabetes presenting with chief complaint of chest pain. Has been present for the last 3 days, is most noticeable with physical labor. It is aggravated by deep breathing and using his arms. Physical examination is unremarkable. Lab work is essentially unremarkable. Chest x-ray shows no acute process. EKG shows no ischemic changes. Likely musculoskeletal in nature. Patient is educated on using Motrin and Tylenol for pain control. Follow-up with PCP. Report back to ER with any new or worsening symptoms. Discussed return parameters and answered all questions. Patient conveyed verbal understanding and agreed to the plan. I discussed this case in detail with my attending Dr. Hernandez Undiagnosed new problem with uncertain prognosis? @ -No Drug Therapy requiring intensive monitoring for toxicity (Heparin, Nitro, Insulin, Cardizem)? @ -No Were any procedures done? @ -No Diagnosis/symptom? @ -Atypical chest pain Acute, or Chronic, or Acute on Chronic? @ -Acute Uncomplicated (without systemic symptoms) or Complicated (systemic symptoms)? @ -Uncomplicated Side effects of treatment? @ -No Exacerbation, Progression, or Severe Exacerbation? @ -No - Lab Data Result diagrams: 08/16/22 23:37 08/16/22 23:35 Lab Results 08/16/22 08/16/22 08/16/22 Range/Units 23:35 23:35 23:35 WBC (3.8-10.6) k/uL RBC (4.30-5.90) m/uL Hgb (13.0-17.5) gm/dL Hct (39.0-53.0) % MCV (80.0-100.0) fL MCH (25.0-35.0) pg MCHC (31.0-37.0) g/dL RDW (11.5-15.5) % Plt Count (150-450) k/uL MPV Neutrophils % % Lymphocytes % % Monocytes % % Eosinophils % % Basophils % % Neutrophils # (1.3-7.7) k/uL Lymphocytes # (1.0-4.8) k/uL Monocytes # (0-1.0) k/uL Eosinophils # (0-0.7) k/uL Basophils # (0-0.2) k/uL Hyperchromasia Poikilocytosis PT 10.2 (9.0-12.0) sec INR 1.0 (<1.2) APTT 24.2 (22.0-30.0) sec Sodium 138 (137-145) mmol/L Potassium 3.5 (3.5-5.1) mmol/L Chloride 101 (98-107) mmol/L Carbon Dioxide 31 H (22-30) mmol/L Anion Gap 6 mmol/L BUN 11 (9-20) mg/dL Creatinine 0.77 (0.66-1.25) mg/dL Est GFR (CKD-EPI)AfAm >90 (>60 ml/min/1.73 sqM) Est GFR (CKD-EPI)NonAf >90 (>60 ml/min/1.73 sqM) Glucose 120 H (74-99) mg/dL Calcium 9.2 (8.4-10.2) mg/dL Magnesium 1.6 (1.6-2.3) mg/dL Total Bilirubin 0.9 (0.2-1.3) mg/dL AST 33 (17-59) U/L ALT 40 (4-49) U/L Alkaline Phosphatase 90 (38-126) U/L Troponin I <0.012 (0.000-0.034) ng/mL Total Protein 7.2 (6.3-8.2) g/dL Albumin 4.7 (3.5-5.0) g/dL 08/16/22 Range/Units 23:37 WBC 9.1 (3.8-10.6) k/uL RBC 5.14 (4.30-5.90) m/uL Hgb 15.4 (13.0-17.5) gm/dL Hct 43.2 (39.0-53.0) % MCV 84.0 (80.0-100.0) fL MCH 30.0 (25.0-35.0) pg MCHC 35.7 (31.0-37.0) g/dL RDW 13.2 (11.5-15.5) % Plt Count 229 (150-450) k/uL MPV 7.6 Neutrophils % 64 % Lymphocytes % 23 % Monocytes % 4 % Eosinophils % 5 % Basophils % 1 % Neutrophils # 5.8 (1.3-7.7) k/uL Lymphocytes # 2.1 (1.0-4.8) k/uL Monocytes # 0.4 (0-1.0) k/uL Eosinophils # 0.5 (0-0.7) k/uL Basophils # 0.1 (0-0.2) k/uL Hyperchromasia Slight Poikilocytosis Slight PT (9.0-12.0) sec INR (<1.2) APTT (22.0-30.0) sec Sodium (137-145) mmol/L Potassium (3.5-5.1) mmol/L Chloride (98-107) mmol/L Carbon Dioxide (22-30) mmol/L Anion Gap mmol/L BUN (9-20) mg/dL Creatinine (0.66-1.25) mg/dL Est GFR (CKD-EPI)AfAm (>60 ml/min/1.73 sqM) Est GFR (CKD-EPI)NonAf (>60 ml/min/1.73 sqM) Glucose (74-99) mg/dL Calcium (8.4-10.2) mg/dL Magnesium (1.6-2.3) mg/dL Total Bilirubin (0.2-1.3) mg/dL AST (17-59) U/L ALT (4-49) U/L Alkaline Phosphatase (38-126) U/L Troponin I (0.000-0.034) ng/mL Total Protein (6.3-8.2) g/dL Albumin (3.5-5.0) g/dL Disposition Clinical Impression: Atypical chest pain Disposition: HOME SELF-CARE Condition: Good Instructions (If sedation given, give patient instructions): Chest Pain (ED), Costochondritis (ED) Additional Instructions: Follow-up with PCP. Report back to ER with any new or worsening symptoms. Take Motrin and Tylenol as needed for pain control. Is patient prescribed a controlled substance at d/c from ED?: No Referrals: Lenka Chowdhury [Primary Care Provider] - 1-2 days Time of Disposition: 01:50
[2022-08-17 02:11] VITALS: BP 123/75; PULSE 85; RESP 18
== END 2022-08-17 02:12 | disposition home or self-care (01) ==
LOC: EC 23:20
DX: R07.89 Other chest pain (principal); J45.909 Unspecified asthma, uncomplicated; E11.9 Type 2 diabetes mellitus without complications; F17.290 Nicotine dependence, other tobacco product, uncomplicated; Z79.4 Long term (current) use of insulin; Z86.16 Personal history of COVID-19
CPT/HCPCS: 36415; 71046; 80053; 83735; 84484; 85025; 85610; 85730; 93005; 99285

== ENCOUNTER 2022-09-28 18:57 | Emergency (ER) | payer OTHER ==
[2022-09-28 19:12] VITALS: TEMP 98.4
[2022-09-28] MEDS ORDERED: ONDANSETRON 4 MG/2 ML VIAL IVP STA (19:15)
[2022-09-28] MEDS ORDERED: SODIUM CHLORIDE 0.9% 2,000 ML IV STA (19:16)
[2022-09-28 19:37] LABS: VBG PH 7.34 (7.31-7.41)
[2022-09-28 19:38] LABS: Basophils # (A) 0.1 k/uL (0-0.2); Basophils % (A) 1 %; Eosinophils # (A) 0.3 k/uL (0-0.7); Eosinophils % (A) 4 %; HCT 45.1 % (39.0-53.0); HGB 15.4 gm/dL (13.0-17.5); Lymphocytes # (A) 1.1 k/uL (1.0-4.8); Lymphocytes % (A) 15 %; MCH 29.5 pg (25.0-35.0); MCHC 34.2 g/dL (31.0-37.0); MCV 86.3 fL (80.0-100.0); Mean Platelet Volume 7.7; Monocytes # (A) 0.3 k/uL (0-1.0); Monocytes % (A) 4 %; Neutrophils # (A) 5.4 k/uL (1.3-7.7); Neutrophils % (A) 75 %; Platelet Count 206 k/uL (150-450); RBC 5.23 m/uL (4.30-5.90); RDW 13.1 % (11.5-15.5); WBC 7.2 k/uL (3.8-10.6)
--- NOTE | 2022-09-28 19:45 | ED ---
General Adult HPI - General Chief complaint: Nausea/Vomiting/Diarrhea Stated complaint: Hyperglycemia Time Seen by Provider: 09/28/22 19:13 Source: patient Mode of arrival: ambulatory Limitations: no limitations - History of Present Illness Initial comments: Patient is a 32-year-old male who presents to the emergency department for blood sugar issues. Patient is a type I diabetic on insulin. Patient states he woke up feeling off this morning with malaise, bodyaches, and runny nose. Patient states his blood sugar has been high today in the 300s. Patient feels nauseous. No abdominal pain and no vomiting. He denies fever and chills. No chest pain or shortness of breath. - Related Data Home Medications Medication Instructions Recorded Confirmed Insulin Aspart (For Pump) [NovoLOG 0.01 unit SQ-PUMP CONTINUOUS 12/20/20 09/28/22 (For Pump)] Previous Rx's Medication Instructions Recorded Ondansetron Odt [Zofran Odt] 4 mg PO Q8HR PRN #10 tab 09/28/22 Allergies Allergy/AdvReac Type Severity Reaction Status Date / Time No Known Allergies Allergy Verified 09/28/22 20:38 Review of Systems ROS Statement: Those systems with pertinent positive or pertinent negative responses have been documented in the HPI. ROS Other: All systems not noted in ROS Statement are negative. Past Medical History Past Medical History: Asthma, Diabetes Mellitus, GERD/Reflux Additional Past Medical History / Comment(s): DM type I, gastroparesis, Covid End of Jul 2020 History of Any Multi-Drug Resistant Organisms: None Reported Past Surgical History: Cholecystectomy Past Anesthesia/Blood Transfusion Reactions: Postoperative Nausea & Vomiting (PONV) Additional Past Anesthesia/Blood Transfusion Reaction / Comment(s): Pt has never received blood. Past Psychological History: No Psychological Hx Reported Smoking Status: Vaper Past Alcohol Use History: Occasional Past Drug Use History: None Reported - Past Family History Father Family Medical History: Diabetes Mellitus, Hypertension Additional Family Medical History / Comment(s): type II diabetes. Mother Family Medical History: COPD Brother(s) Family Medical History: Diabetes Mellitus Additional Family Medical History / Comment(s): IDDM type I Sister(s) Family Medical History: No Reported History General Exam Limitations: no limitations General appearance: alert, in no apparent distress Eye exam: Present: normal appearance, PERRL, EOMI. Absent: scleral icterus, conjunctival injection, periorbital swelling ENT exam: Present: normal oropharynx Respiratory exam: Present: normal lung sounds bilaterally. Absent: respiratory distress, wheezes, rales, rhonchi, stridor Cardiovascular Exam: Present: regular rate, normal rhythm, normal heart sounds. Absent: systolic murmur, diastolic murmur, rubs, gallop, clicks GI/Abdominal exam: Present: soft, normal bowel sounds. Absent: distended, tenderness, guarding, rebound, rigid Neurological exam: Present: alert, oriented X3, CN II-XII intact Psychiatric exam: Present: normal affect, normal mood Skin exam: Present: warm, dry, intact, normal color. Absent: rash Course Vital Signs 09/28/22 19:09 Temperature 98.4 F Pulse Rate 84 Respiratory 18 Rate Blood Pressure 137/88 O2 Sat by Pulse 98 Oximetry Medical Decision Making - Medical Decision Making Was pt. sent in by a medical professional or institution (, PA, LAMINATION INSPECTOR, urgent care, hospital, or [facility]...) When possible be specific @ -No Did you speak to anyone other than the patient for history (EMS, parent, family, police, friend...)? What history was obtained from this source @ -No Did you review nursing and triage notes (agree or disagree)? Why? @ -I reviewed and agree with nursing and triage notes Were old charts reviewed (outside hosp., previous admission, EMS record, old EKG, old radiological studies, urgent care reports/EKG's, [facility] records)? Report findings @ -No old charts were reviewed Differential Diagnosis (chest pain, altered mental status, abdominal pain women, abdominal pain men, vaginal bleeding, weakness, fever, dyspnea, syncope, headache, dizziness, GI bleed, back pain, seizure, CVA, palpatations, mental health)? @ -Hyperglycemia, DKA, upper respiratory infection EKG interpreted by me (3pts min.). @ -As above X-rays interpreted by me (1pt min.). @ -None done CT interpreted by me (1pt min.). @ -None done U/S interpreted by me (1pt. min.). @ -None done What testing was considered but not performed or refused? (CT, X-rays, U/S, labs)? Why? @ -None What meds were considered but not given or refused? Why? @ -None Did you discuss the management of the patient with other professionals (professionals i.e. , PA, LAMINATION INSPECTOR, lab, RT, psych nurse, social work professor, health service coordinator, teacher, crime prevention police officer, clinical case manager)? Give summary @ -No Was smoking cessation discussed for >3mins.? @ -No Was critical care preformed (if so, how long)? @ -No Were there social determinants of health that impacted care today? How? (Homelessness, low income, unemployed, alcoholism, drug addiction, transportation, low edu. Level, literacy, decrease access to med. care, long term, rehab)? @ -No Was there de-escalation of care discussed even if they declined (Discuss DNR or withdrawal of care, Hospice)? DNR status @ -No What co-morbidities impacted this encounter? (DM, HTN, Smoking, COPD, CAD, Cancer, CVA, ARF, Chemo, Hep., AIDS, mental health diagnosis, sleep apnea, morbid obesity)? @ -None Was patient admitted / discharged? Hospital course, mention meds given and route, prescriptions, significant lab abnormalities, going to OR and other pertinent info. @ -Patient presenting for high blood sugar. He is hyperglycemic at 395. There is 1+ ketones in the urine and 4+ glucose. Patient is not acidotic. He is not in DKA. COVID-19, influenza, RSV not detected. Given large fluid bolus and insulin with improvement of blood sugar to 274. Patient feeling better on reevaluation he will be discharged. Undiagnosed new problem with uncertain prognosis? @ -No Drug Therapy requiring intensive monitoring for toxicity (Heparin, Nitro, Insulin, Cardizem)? @ -No Were any procedures done? @ -No Diagnosis/symptom? @ -Hyperglycemia Acute, or Chronic, or Acute on Chronic? @ -Acute Uncomplicated (without systemic symptoms) or Complicated (systemic symptoms)? @ -Uncomplicated Side effects of treatment? @ -No Exacerbation, Progression, or Severe Exacerbation? @ -No Poses a threat to life or bodily function? How? (Chest pain, [place], [place], pneumonia, PE, COPD, DKA, ARF, appy, cholecystitis, CVA, Diverticulitis, Homicidal, Suicidal, threat to staff... and all critical care pts) @ -No Dr. Hernandez is my attending - Lab Data Result diagrams: 09/28/22 19:20 09/28/22 19:20 Lab Results 09/28/22 09/28/22 09/28/22 Range/Units 19:20 19:20 19:20 WBC 7.2 (3.8-10.6) k/uL RBC 5.23 (4.30-5.90) m/uL Hgb 15.4 (13.0-17.5) gm/dL Hct 45.1 (39.0-53.0) % MCV 86.3 (80.0-100.0) fL MCH 29.5 (25.0-35.0) pg MCHC 34.2 (31.0-37.0) g/dL RDW 13.1 (11.5-15.5) % Plt Count 206 (150-450) k/uL MPV 7.7 Neutrophils % 75 % Lymphocytes % 15 % Monocytes % 4 % Eosinophils % 4 % Basophils % 1 % Neutrophils # 5.4 (1.3-7.7) k/uL Lymphocytes # 1.1 (1.0-4.8) k/uL Monocytes # 0.3 (0-1.0) k/uL Eosinophils # 0.3 (0-0.7) k/uL Basophils # 0.1 (0-0.2) k/uL VBG pH (7.31-7.41) VBG pCO2 (37-51) mmHg VBG HCO3 (24-28) mmol/L Sodium 134 L (137-145) mmol/L Potassium 4.8 (3.5-5.1) mmol/L Chloride 99 (98-107) mmol/L Carbon Dioxide 28 (22-30) mmol/L Anion Gap 7 mmol/L BUN 19 (9-20) mg/dL Creatinine 0.92 (0.66-1.25) mg/dL Est GFR (CKD-EPI)AfAm >90 (>60 ml/min/1.73 sqM) Est GFR (CKD-EPI)NonAf >90 (>60 ml/min/1.73 sqM) Glucose 395 H (74-99) mg/dL POC Glucose (mg/dL) (70-110) mg/dL POC Glu Vertical Boring Mill Operator ID Calcium 9.0 (8.4-10.2) mg/dL Total Bilirubin 0.9 (0.2-1.3) mg/dL AST 32 (17-59) U/L ALT 44 (4-49) U/L Alkaline Phosphatase 117 (38-126) U/L Total Protein 6.9 (6.3-8.2) g/dL Albumin 4.5 (3.5-5.0) g/dL Lipase 29 (23-300) U/L Urine Color Colorless Urine Appearance Clear (Clear) Urine pH 6.0 (5.0-8.0) Ur Specific [place] 1.020 (1.001-1.035) Urine Protein Negative (Negative) Urine Glucose (UA) 4+ H (Negative) Urine Ketones 1+ H (Negative) Urine Blood Negative (Negative) Urine Nitrite Negative (Negative) Urine Bilirubin Negative (Negative) Urine Urobilinogen <2.0 (<2.0) mg/dL Ur Leukocyte Esterase Negative (Negative) Acetone, Qual Negative (Negative) Influenza Type A (PCR) (Not Detectd) Influenza Type B (PCR) (Not Detectd) RSV (PCR) (Not Detectd) SARS-CoV-2 (PCR) (Not Detectd) 09/28/22 09/28/22 09/28/22 Range/Units 19:20 19:32 21:22 WBC (3.8-10.6) k/uL RBC (4.30-5.90) m/uL Hgb (13.0-17.5) gm/dL Hct (39.0-53.0) % MCV (80.0-100.0) fL MCH (25.0-35.0) pg MCHC (31.0-37.0) g/dL RDW (11.5-15.5) % Plt Count (150-450) k/uL MPV Neutrophils % % Lymphocytes % % Monocytes % % Eosinophils % % Basophils % % Neutrophils # (1.3-7.7) k/uL Lymphocytes # (1.0-4.8) k/uL Monocytes # (0-1.0) k/uL Eosinophils # (0-0.7) k/uL Basophils # (0-0.2) k/uL VBG pH 7.34 (7.31-7.41) VBG pCO2 53 H (37-51) mmHg VBG HCO3 28 (24-28) mmol/L Sodium (137-145) mmol/L Potassium (3.5-5.1) mmol/L Chloride (98-107) mmol/L Carbon Dioxide (22-30) mmol/L Anion Gap mmol/L BUN (9-20) mg/dL Creatinine (0.66-1.25) mg/dL Est GFR (CKD-EPI)AfAm (>60 ml/min/1.73 sqM) Est GFR (CKD-EPI)NonAf (>60 ml/min/1.73 sqM) Glucose (74-99) mg/dL POC Glucose (mg/dL) 274 H (70-110) mg/dL POC Glu Vertical Boring Mill Operator ID December, [place] Calcium (8.4-10.2) mg/dL Total Bilirubin (0.2-1.3) mg/dL AST (17-59) U/L ALT (4-49) U/L Alkaline Phosphatase (38-126) U/L Total Protein (6.3-8.2) g/dL Albumin (3.5-5.0) g/dL Lipase (23-300) U/L Urine Color Urine Appearance (Clear) Urine pH (5.0-8.0) Ur Specific [place] (1.001-1.035) Urine Protein (Negative) Urine Glucose (UA) (Negative) Urine Ketones (Negative) Urine Blood (Negative) Urine Nitrite (Negative) Urine Bilirubin (Negative) Urine Urobilinogen (<2.0) mg/dL Ur Leukocyte Esterase (Negative) Acetone, Qual (Negative) Influenza Type A (PCR) Not Detected (Not Detectd) Influenza Type B (PCR) Not Detected (Not Detectd) RSV (PCR) Not Detected (Not Detectd) SARS-CoV-2 (PCR) Not Detected (Not Detectd) Disposition Clinical Impression: Hyperglycemia Disposition: HOME SELF-CARE Condition: Good Instructions (If sedation given, give patient instructions): Diabetic Hyperglycemia (ED) Additional Instructions: Continue to check blood sugar home. Follow-up with primary care provider in one to 2 days. Return to the emergency department if you experience new, concerning, or worsening symptoms. Prescriptions: Ondansetron Odt [Zofran Odt] 4 mg PO Q8HR PRN #10 tab PRN Reason: Nausea Is patient prescribed a controlled substance at d/c from ED?: No Referrals: Lenka Chowdhury [Primary Care Provider] - 1-2 days Time of Disposition: 21:32
[2022-09-28 19:49] LABS: ALT 44 U/L (4-49); AST 32 U/L (17-59); African American GFR (CKD) >90 (>60 ml/min/1.73 sqM); Albumin 4.5 g/dL (3.5-5.0); Alkaline Phosphatase 117 U/L (38-126); Anion Gap 7 mmol/L; Blood Urea Nitrogen 19 mg/dL (9-20); Carbon Dioxide 28 mmol/L (22-30); Chloride 99 mmol/L (98-107); Glucose 395 mg/dL (74-99); Lipase 29 U/L (23-300); Non-African American GFR(CKD) >90 (>60 ml/min/1.73 sqM); Potassium 4.8 mmol/L (3.5-5.1); Sodium 134 mmol/L (137-145); Total Bilirubin 0.9 mg/dL (0.2-1.3); Total Protein 6.9 g/dL (6.3-8.2)
[2022-09-28] MEDS ORDERED: INSULIN REGULAR 100 UNIT/ML VIAL (IV) IV ONE (20:09)
[2022-09-28 20:15] LABS: Appearance,Urine Clear (Clear); Bilirubin,Urine Negative (Negative); Blood,Urine Negative (Negative); Color,Urine Colorless; Glucose,Urine (UA) 4+ (Negative); Ketones,Urine 1+ (Negative); Leukocyte Esterase,Urine Negative (Negative); Nitrite,Urine Negative (Negative); Protein,Urine Negative (Negative); Urobilinogen,Urine <2.0 mg/dL (<2.0)
[2022-09-28 21:24] LABS: Glucose,Whole Blood 274 mg/dL (70-110)
[2022-09-28 21:45] VITALS: BP 127/73; PULSE 96; RESP 16
== END 2022-09-28 21:45 | disposition home or self-care (01) ==
LOC: EC 18:57
DX: E10.65 Type 1 diabetes mellitus with hyperglycemia (principal); J45.909 Unspecified asthma, uncomplicated; F17.290 Nicotine dependence, other tobacco product, uncomplicated; Z79.4 Long term (current) use of insulin; Z20.822 Contact with and (suspected) exposure to COVID-19; Z86.16 Personal history of COVID-19
CPT/HCPCS: 36415; 80053; 82803; 82009; 83690; 85025; 81003; 87636; 99283; 96374; 96361 ×2; J2405

== ENCOUNTER 2022-12-03 18:42 | Emergency (ER) | payer OTHER ==
[2022-12-03 18:58] VITALS: TEMP 98
[2022-12-03 19:02] LABS: Glucose,Whole Blood 437 mg/dL (70-110)
[2022-12-03] MEDS ORDERED: SODIUM CHLORIDE 0.9% 1,000 ML IV ONE ×2 (19:25→21:32)
--- NOTE | 2022-12-03 19:46 | ED ---
General Adult HPI - General Chief complaint: Recheck/Abnormal Lab/Rx Stated complaint: SOB/covid test Time Seen by Provider: 12/03/22 19:13 Source: patient, RN notes reviewed Mode of arrival: ambulatory Limitations: no limitations - History of Present Illness Initial comments: 32-year-old male with a past medical history significant for diabetes mellitus type 1 presents to the emergency department with a chief complaint of high blood sugar. Patient reports that he has noticed the last 2 days his blood sugar being above 400. He reports that he is on an insulin pump. He is on 4 units of insulin an hour. He reports that his sugars will be high when he is sick. He is complaining of accompanying shortness of breath. He reports he had to take his inhaler and had mild symptomatic relief. He denies any known sick contacts. He is up-to-date on his vaccinations. He denies any fever, chills, cough, nasal congestion, headache, chest pain, abdominal pain, nausea, vomiting, diarrhea. - Related Data Home Medications Medication Instructions Recorded Confirmed Insulin Aspart (For Pump) [NovoLOG 0.01 unit SQ-PUMP CONTINUOUS 12/20/20 09/28/22 (For Pump)] Previous Rx's Medication Instructions Recorded Ondansetron Odt [Zofran Odt] 4 mg PO Q8HR PRN #10 tab 09/28/22 Allergies Allergy/AdvReac Type Severity Reaction Status Date / Time No Known Allergies Allergy Verified 09/28/22 20:38 Review of Systems ROS Statement: Those systems with pertinent positive or pertinent negative responses have been documented in the HPI. ROS Other: All systems not noted in ROS Statement are negative. Past Medical History Past Medical History: Asthma, Diabetes Mellitus, GERD/Reflux Additional Past Medical History / Comment(s): DM type I, gastroparesis, Covid End of Jul 2020 History of Any Multi-Drug Resistant Organisms: None Reported Past Surgical History: Cholecystectomy Past Anesthesia/Blood Transfusion Reactions: Postoperative Nausea & Vomiting (PONV) Additional Past Anesthesia/Blood Transfusion Reaction / Comment(s): Pt has never received blood. Past Psychological History: No Psychological Hx Reported Smoking Status: Vaper Past Alcohol Use History: Occasional Past Drug Use History: None Reported - Past Family History Father Family Medical History: Diabetes Mellitus, Hypertension Additional Family Medical History / Comment(s): type II diabetes. Mother Family Medical History: COPD Brother(s) Family Medical History: Diabetes Mellitus Additional Family Medical History / Comment(s): IDDM type I Sister(s) Family Medical History: No Reported History General Exam - General Exam Comments Initial Comments: General: Alert, in no acute distress Head: atraumatic normocephalic. Eyes PERRL, EOMI intact, mucous membranes moist Respiratory: Lungs clear to auscultation bilaterally Cardiovascular: Rate regular rate and rhythm Abdominal: Soft without guarding or rebound Extremities: Normal inspection with full range of motion and normal capillary refill Neuroogic: alert and oriented 3, CN II-XII intact, able to ambulate with steady gait Skin: warm dry and intact with normal color Limitations: no limitations Course Vital Signs 12/03/22 12/03/22 18:56 21:50 Temperature 98 F Pulse Rate 90 86 Respiratory 16 18 Rate Blood Pressure 128/88 132/84 O2 Sat by Pulse 97 97 Oximetry - Reevaluation(s) Reevaluation #1: 12/03/22 22:41 Reevaluated. Patient reports that sugar is 350. Second liter fluids ordered EKG Findings - EKG Comments: EKG Findings:: I interpreted the following: EKG performed at 19:32 87 bpm normal sinus rhythm IN interval 141, QRS duration 90, QT/QTC 347/392 Medical Decision Making - Medical Decision Making Was pt. sent in by a medical professional or institution (ENRIQUE Burris, GENERAL SCRAP WORKER, urgent care, hospital, or longterm...) When possible be specific @ -[No] Did you speak to anyone other than the patient for history (EMS, parent, family, police, friend...)? What history was obtained from this source @ -[No] Did you review nursing and triage notes (agree or disagree)? Why? @ -[I reviewed and agree with nursing and triage notes] Were old charts reviewed (outside hosp., previous admission, EMS record, old EKG, old radiological studies, urgent care reports/EKG's, longterm records)? Report findings @ -[No old charts were reviewed] Differential Diagnosis (chest pain, altered mental status, abdominal pain women, abdominal pain men, vaginal bleeding, weakness, fever, dyspnea, syncope, headache, dizziness, GI bleed, back pain, seizure, CVA, palpatations, mental health, musculoskeletal)? @ -[not applicable] EKG interpreted by me (3pts min.). @ -[As above] X-rays interpreted by me (1pt min.). @ -[None done] CT interpreted by me (1pt min.). @ -[None done] U/S interpreted by me (1pt. min.). @ -[None done] What testing was considered but not performed or refused? (CT, X-rays, U/S, labs)? Why? @ -[None] What meds were considered but not given or refused? Why? @ -[None] Did you discuss the management of the patient with other professionals (professionals i.e. Dr., PA, GENERAL SCRAP WORKER, lab, RT, psych nurse, manager social responsibility, vrt mechanic, teacher, major gifts officer, rn case manager hospice)? Give summary @ -[No] Was smoking cessation discussed for >3mins.? @ -[No] Was critical care preformed (if so, how long)? @ -[No] Were there social determinants of health that impacted care today? How? (Homelessness, low income, unemployed, alcoholism, drug addiction, transportation, low edu. Level, literacy, decrease access to med. care, long term, rehab)? @ -[No] Was there de-escalation of care discussed even if they declined (Discuss DNR or withdrawal of care, Hospice)? DNR status @ -[No] What co-morbidities impacted this encounter? (DM, HTN, Smoking, COPD, CAD, Cancer, CVA, ARF, Chemo, Hep., AIDS, mental health diagnosis, sleep apnea, morbid obesity)? @ -[None] Was patient admitted / discharged? Hospital course, mention meds given and route, prescriptions, significant lab abnormalities, going to OR and other pertinent info. @ - @ - Discharged. This is a 32-year-old male who presents the emergency department with high blood suagr. Patient had a thorough history and physical exam performed on the ED. This will exam is essentially unremarkable heart rate regular rate and rhythm, lungs clear to auscultation bilaterally, abdomen is soft and nontender. Patient had lab work and imaging which revealed: CBC 9.9, hemoglobin 15.1 d-dimer 0.17 sodium 132 glucose 474 troponin 0.01 to urine with 4+ glucose Covid and influenza RSV negative.. X-rays negative. Glucose is 280 upon discharge. . I discussed results in detail with the patient verbalized understanding and all questions were addressed. Patient was given 2 L IV fluids mild symptomatically relief. She return precautions were discussed at length. She was discharged in stable condition, Case discussed with Dr. Garrett who agrees with plan of care. Undiagnosed new problem with uncertain prognosis? @ -[No] Drug Therapy requiring intensive monitoring for toxicity (Heparin, Nitro, Insulin, Cardizem)? @ -[No] Were any procedures done? @ -[No] Diagnosis/symptom? @ -High Blood Sugar - hx of Diabetes Mellitus Type I Acute, or Chronic, or Acute on Chronic? @ -Acute Uncomplicated (without systemic symptoms) or Complicated (systemic symptoms)? @ -Uncomplicated Side effects of treatment? @ -[No] Exacerbation, Progression, or Severe Exacerbation? @ -[No] Poses a threat to life or bodily function? How? (Chest pain, [place], [place], pneumonia, PE, COPD, DKA, ARF, appy, cholecystitis, CVA, Diverticulitis, Homicidal, Suicidal, threat to staff... and all critical care pts) @ -low likleihood - Lab Data Result diagrams: 12/03/22 19:51 12/03/22 19:51 Lab Results 12/03/22 12/03/22 12/03/22 Range/Units 18:45 19:00 19:51 WBC 9.9 (3.8-10.6) k/uL RBC 5.29 (4.30-5.90) m/uL Hgb 15.1 (13.0-17.5) gm/dL Hct 44.8 (39.0-53.0) % MCV 84.6 (80.0-100.0) fL MCH 28.5 (25.0-35.0) pg MCHC 33.7 (31.0-37.0) g/dL RDW 13.5 (11.5-15.5) % Plt Count 222 (150-450) k/uL MPV 7.8 Neutrophils % 75 % Lymphocytes % 15 % Monocytes % 3 % Eosinophils % 5 % Basophils % 1 % Neutrophils # 7.4 (1.3-7.7) k/uL Lymphocytes # 1.5 (1.0-4.8) k/uL Monocytes # 0.3 (0-1.0) k/uL Eosinophils # 0.5 (0-0.7) k/uL Basophils # 0.1 (0-0.2) k/uL D-Dimer (<0.60) mg/L FEU Sodium (137-145) mmol/L Potassium (3.5-5.1) mmol/L Chloride (98-107) mmol/L Carbon Dioxide (22-30) mmol/L Anion Gap mmol/L BUN (9-20) mg/dL Creatinine (0.66-1.25) mg/dL Est GFR (CKD-EPI)AfAm (>60 ml/min/1.73 sqM) Est GFR (CKD-EPI)NonAf (>60 ml/min/1.73 sqM) Glucose (74-99) mg/dL POC Glucose (mg/dL) 437 H (70-110) mg/dL POC Glu [employer] Trader ID Jacob Paredes Plasma Lactic Acid Elio 1.3 (0.7-2.0) mmol/L Calcium (8.4-10.2) mg/dL Total Bilirubin (0.2-1.3) mg/dL AST (17-59) U/L ALT (4-49) U/L Alkaline Phosphatase (38-126) U/L Troponin I (0.000-0.034) ng/mL Total Protein (6.3-8.2) g/dL Albumin (3.5-5.0) g/dL Urine Color Urine Appearance (Clear) Urine pH (5.0-8.0) Ur Specific Dalton (1.001-1.035) Urine Protein (Negative) Urine Glucose (UA) (Negative) Urine Ketones (Negative) Urine Blood (Negative) Urine Nitrite (Negative) Urine Bilirubin (Negative) Urine Urobilinogen (<2.0) mg/dL Ur Leukocyte Esterase (Negative) Influenza Type A (PCR) (Not Detectd) Influenza Type B (PCR) (Not Detectd) RSV (PCR) (Not Detectd) SARS-CoV-2 (PCR) (Not Detectd) 12/03/22 12/03/22 12/03/22 Range/Units 19:51 19:51 19:51 WBC (3.8-10.6) k/uL RBC (4.30-5.90) m/uL Hgb (13.0-17.5) gm/dL Hct (39.0-53.0) % MCV (80.0-100.0) fL MCH (25.0-35.0) pg MCHC (31.0-37.0) g/dL RDW (11.5-15.5) % Plt Count (150-450) k/uL MPV Neutrophils % % Lymphocytes % % Monocytes % % Eosinophils % % Basophils % % Neutrophils # (1.3-7.7) k/uL Lymphocytes # (1.0-4.8) k/uL Monocytes # (0-1.0) k/uL Eosinophils # (0-0.7) k/uL Basophils # (0-0.2) k/uL D-Dimer <0.17 (<0.60) mg/L FEU Sodium 132 L (137-145) mmol/L Potassium 4.4 (3.5-5.1) mmol/L Chloride 94 L (98-107) mmol/L Carbon Dioxide 31 H (22-30) mmol/L Anion Gap 7 mmol/L BUN 17 (9-20) mg/dL Creatinine 1.01 (0.66-1.25) mg/dL Est GFR (CKD-EPI)AfAm >90 (>60 ml/min/1.73 sqM) Est GFR (CKD-EPI)NonAf >90 (>60 ml/min/1.73 sqM) Glucose 474 H (74-99) mg/dL POC Glucose (mg/dL) (70-110) mg/dL POC Glu [employer] Trader ID Plasma Lactic Acid Elio (0.7-2.0) mmol/L Calcium 8.8 (8.4-10.2) mg/dL Total Bilirubin 0.9 (0.2-1.3) mg/dL AST 30 (17-59) U/L ALT 41 (4-49) U/L Alkaline Phosphatase 107 (38-126) U/L Troponin I (0.000-0.034) ng/mL Total Protein 6.6 (6.3-8.2) g/dL Albumin 4.3 (3.5-5.0) g/dL Urine Color Colorless Urine Appearance Clear (Clear) Urine pH 6.5 (5.0-8.0) Ur Specific Dalton 1.020 (1.001-1.035) Urine Protein Negative (Negative) Urine Glucose (UA) 4+ H (Negative) Urine Ketones Negative (Negative) Urine Blood Negative (Negative) Urine Nitrite Negative (Negative) Urine Bilirubin Negative (Negative) Urine Urobilinogen <2.0 (<2.0) mg/dL Ur Leukocyte Esterase Negative (Negative) Influenza Type A (PCR) (Not Detectd) Influenza Type B (PCR) (Not Detectd) RSV (PCR) (Not Detectd) SARS-CoV-2 (PCR) (Not Detectd) 12/03/22 12/03/22 Range/Units 19:51 19:51 WBC (3.8-10.6) k/uL RBC (4.30-5.90) m/uL Hgb (13.0-17.5) gm/dL Hct (39.0-53.0) % MCV (80.0-100.0) fL MCH (25.0-35.0) pg MCHC (31.0-37.0) g/dL RDW (11.5-15.5) % Plt Count (150-450) k/uL MPV Neutrophils % % Lymphocytes % % Monocytes % % Eosinophils % % Basophils % % Neutrophils # (1.3-7.7) k/uL Lymphocytes # (1.0-4.8) k/uL Monocytes # (0-1.0) k/uL Eosinophils # (0-0.7) k/uL Basophils # (0-0.2) k/uL D-Dimer (<0.60) mg/L FEU Sodium (137-145) mmol/L Potassium (3.5-5.1) mmol/L Chloride (98-107) mmol/L Carbon Dioxide (22-30) mmol/L Anion Gap mmol/L BUN (9-20) mg/dL Creatinine (0.66-1.25) mg/dL Est GFR (CKD-EPI)AfAm (>60 ml/min/1.73 sqM) Est GFR (CKD-EPI)NonAf (>60 ml/min/1.73 sqM) Glucose (74-99) mg/dL POC Glucose (mg/dL) (70-110) mg/dL POC Glu Energy Trader ID Plasma Lactic Acid Elio (0.7-2.0) mmol/L Calcium (8.4-10.2) mg/dL Total Bilirubin (0.2-1.3) mg/dL AST (17-59) U/L ALT (4-49) U/L Alkaline Phosphatase (38-126) U/L Troponin I <0.012 (0.000-0.034) ng/mL Total Protein (6.3-8.2) g/dL Albumin (3.5-5.0) g/dL Urine Color Urine Appearance (Clear) Urine pH (5.0-8.0) Ur Specific Dalton (1.001-1.035) Urine Protein (Negative) Urine Glucose (UA) (Negative) Urine Ketones (Negative) Urine Blood (Negative) Urine Nitrite (Negative) Urine Bilirubin (Negative) Urine Urobilinogen (<2.0) mg/dL Ur Leukocyte Esterase (Negative) Influenza Type A (PCR) Not Detected (Not Detectd) Influenza Type B (PCR) Not Detected (Not Detectd) RSV (PCR) Not Detected (Not Detectd) SARS-CoV-2 (PCR) Not Detected (Not Detectd) Disposition Clinical Impression: Hyperglycemia due to type 1 diabetes mellitus Disposition: HOME SELF-CARE Condition: Stable Additional Instructions: These follow-up with Dr. Casas sometime this week Return to the nearest emergency department symptoms worsen or persist Is patient prescribed a controlled substance at d/c from ED?: No Referrals: Lenka Chowdhury [Primary Care Provider] - 1-2 days Time of Disposition: 22:54
--- NOTE | 2022-12-03 20:11 | XR ---
EXAMINATION TYPE: XR chest 2V DATE OF EXAM: 12/03/2022 COMPARISON: 08/16/2022 INDICATION: TECHNIQUE: Frontal and lateral views of the chest are obtained. FINDINGS: The heart size is normal. The pulmonary vasculature is normal. There is a 3 cm rounded density below the level of dallin not identified previously. Consider additio nal workup with CT. No suspicious infiltrates are evident.. IMPRESSION: 1. Possible mediastinal mass identified on the frontal projection. Consider follow-up with CT.
[2022-12-03 20:24] LABS: Basophils # (A) 0.1 k/uL (0-0.2); Basophils % (A) 1 %; Eosinophils # (A) 0.5 k/uL (0-0.7); Eosinophils % (A) 5 %; HCT 44.8 % (39.0-53.0); HGB 15.1 gm/dL (13.0-17.5); Lymphocytes # (A) 1.5 k/uL (1.0-4.8); Lymphocytes % (A) 15 %; MCH 28.5 pg (25.0-35.0); MCHC 33.7 g/dL (31.0-37.0); MCV 84.6 fL (80.0-100.0); Mean Platelet Volume 7.8; Monocytes # (A) 0.3 k/uL (0-1.0); Monocytes % (A) 3 %; Neutrophils # (A) 7.4 k/uL (1.3-7.7); Neutrophils % (A) 75 %; Platelet Count 222 k/uL (150-450); RBC 5.29 m/uL (4.30-5.90); RDW 13.5 % (11.5-15.5); WBC 9.9 k/uL (3.8-10.6)
[2022-12-03 20:28] LABS: Appearance,Urine Clear (Clear); Bilirubin,Urine Negative (Negative); Blood,Urine Negative (Negative); Color,Urine Colorless; Glucose,Urine (UA) 4+ (Negative); Ketones,Urine Negative (Negative); Leukocyte Esterase,Urine Negative (Negative); Nitrite,Urine Negative (Negative); PH, Urine 6.5 (5.0-8.0); Protein,Urine Negative (Negative); Urobilinogen,Urine <2.0 mg/dL (<2.0)
[2022-12-03 20:50] LABS: ALT 41 U/L (4-49); AST 30 U/L (17-59); African American GFR (CKD) >90 (>60 ml/min/1.73 sqM); Albumin 4.3 g/dL (3.5-5.0); Alkaline Phosphatase 107 U/L (38-126); Anion Gap 7 mmol/L; Blood Urea Nitrogen 17 mg/dL (9-20); Calcium 8.8 mg/dL (8.4-10.2); Carbon Dioxide 31 mmol/L (22-30); Chloride 94 mmol/L (98-107); Glucose 474 mg/dL (74-99); Non-African American GFR(CKD) >90 (>60 ml/min/1.73 sqM); Potassium 4.4 mmol/L (3.5-5.1); Sodium 132 mmol/L (137-145); Total Bilirubin 0.9 mg/dL (0.2-1.3); Total Protein 6.6 g/dL (6.3-8.2)
[2022-12-03] MEDS ORDERED: INSULIN REGULAR 100 UNIT/ML VIAL (IV) IV ONE (21:31)
[2022-12-03 21:51] VITALS: BP 132/84; PULSE 86; RESP 18
[2022-12-03 23:03] LABS: Glucose,Whole Blood 261 mg/dL (70-110)
== END 2022-12-03 23:17 | disposition home or self-care (01) ==
LOC: EC 18:42
DX: E10.65 Type 1 diabetes mellitus with hyperglycemia (principal); J45.909 Unspecified asthma, uncomplicated; F17.290 Nicotine dependence, other tobacco product, uncomplicated; Z79.4 Long term (current) use of insulin; Z86.16 Personal history of COVID-19
CPT/HCPCS: 36415; 71046; 80053; 81003; 83605; 84484; 85025; 85379; 87636; 93005; 96360; 99284

== ENCOUNTER 2023-02-20 11:34 | Emergency (ER) | payer OTHER ==
[2023-02-20 11:40] VITALS: PULSE 98; RESP 20; TEMP 97.9
[2023-02-20] MEDS ORDERED: SODIUM CHLORIDE 0.9% 2,000 ML IV STA (11:52)
[2023-02-20 11:56] LABS: Glucose,Whole Blood 366 mg/dL (70-110)
--- NOTE | 2023-02-20 12:01 | ED ---
Recheck HPI - General Chief Complaint: Recheck/Abnormal Lab/Rx Stated Complaint: Elevated blood sugar Time Seen by Provider: 02/20/23 11:39 Source: patient, RN notes reviewed Mode of arrival: ambulatory Limitations: no limitations - History of Present Illness Initial Comments: 32-year-old male presents emergency Department chief complaint of body cramps, dehydration, labile blood sugars. Patient states blood sugar has been up and down drastically. Patient states that it was closed 20 states he ate something and states that shot up significantly. Patient states he is concerned has he been in DKA in the past. Patient recently changed all his desk on Cipro, insulin pump sites. Patient denies any fevers or chills no cough like symptoms denies any vomiting no diarrhea. Patient has no dysuria. - Related Data Home Medications Medication Instructions Recorded Confirmed Insulin Aspart (For Pump) [NovoLOG 0.01 unit SQ-PUMP CONTINUOUS 12/20/20 09/28/22 (For Pump)] Previous Rx's Medication Instructions Recorded Ondansetron Odt [Zofran Odt] 4 mg PO Q8HR PRN #10 tab 09/28/22 Allergies Allergy/AdvReac Type Severity Reaction Status Date / Time No Known Allergies Allergy Verified 02/20/23 11:40 Review of Systems ROS Statement: Those systems with pertinent positive or pertinent negative responses have been documented in the HPI. ROS Other: All systems not noted in ROS Statement are negative. Past Medical History Past Medical History: Asthma, Diabetes Mellitus, GERD/Reflux Additional Past Medical History / Comment(s): DM type I, gastroparesis, Covid End of Jul 2020 History of Any Multi-Drug Resistant Organisms: None Reported Past Surgical History: Cholecystectomy Past Anesthesia/Blood Transfusion Reactions: Postoperative Nausea & Vomiting (PONV) Additional Past Anesthesia/Blood Transfusion Reaction / Comment(s): Pt has never received blood. Past Psychological History: No Psychological Hx Reported Smoking Status: Vaper Past Alcohol Use History: Occasional Past Drug Use History: None Reported - Past Family History Father Family Medical History: Diabetes Mellitus, Hypertension Additional Family Medical History / Comment(s): type II diabetes. Mother Family Medical History: COPD Brother(s) Family Medical History: Diabetes Mellitus Additional Family Medical History / Comment(s): IDDM type I Sister(s) Family Medical History: No Reported History General Exam Limitations: no limitations General appearance: alert, in no apparent distress Head exam: Present: atraumatic, normocephalic, normal inspection Eye exam: Present: normal appearance, PERRL, EOMI. Absent: scleral icterus, conjunctival injection, periorbital swelling ENT exam: Present: normal exam, normal oropharynx, mucous membranes moist Neck exam: Present: normal inspection, full ROM. Absent: tenderness, meningismus, lymphadenopathy Respiratory exam: Present: normal lung sounds bilaterally. Absent: respiratory distress, wheezes, rales, rhonchi, stridor Cardiovascular Exam: Present: regular rate, normal rhythm, normal heart sounds. Absent: systolic murmur, diastolic murmur, rubs, gallop, clicks GI/Abdominal exam: Present: soft, normal bowel sounds. Absent: distended, tenderness, guarding, rebound, rigid Neurological exam: Present: alert Course Vital Signs 02/20/23 11:37 Temperature 97.9 F Pulse Rate 98 Respiratory 20 Rate Blood Pressure 135/89 O2 Sat by Pulse 97 Oximetry Medical Decision Making - Medical Decision Making Was pt. sent in by a medical professional or institution (Dr. PA, [employer], urgent care, hospital, or skilled nursing...) When possible be specific @ -No Did you speak to anyone other than the patient for history (EMS, parent, family, police, friend...)? What history was obtained from this source @ -No Did you review nursing and triage notes (agree or disagree)? Why? @ -I reviewed and agree with nursing and triage notes Were old charts reviewed (outside hosp., previous admission, EMS record, old EKG, old radiological studies, urgent care reports/EKG's, skilled nursing records)? Report findings @ -No old charts were reviewed Differential Diagnosis (chest pain, altered mental status, abdominal pain women, abdominal pain men, vaginal bleeding, weakness, fever, dyspnea, syncope, headache, dizziness, GI bleed, back pain, seizure, CVA, palpatations, mental health, musculoskeletal)? @ -Hyperglycemia, DKA, dehydration, viral infection, EKG interpreted by me (3pts min.). @ -None X-rays interpreted by me (1pt min.). @ -None done CT interpreted by me (1pt min.). @ -None done U/S interpreted by me (1pt. min.). @ -None done What testing was considered but not performed or refused? (CT, X-rays, U/S, labs)? Why? @ -None What meds were considered but not given or refused? Why? @ -None Did you discuss the management of the patient with other professionals (professionals i.e. , PA, [employer]GER, lab, RT, psych nurse, medical social worker, rotor blade installer, teacher, command and control officer, case consultant)? Give summary @ -No Was smoking cessation discussed for >3mins.? @ -No Was critical care preformed (if so, how long)? @ -No Were there social determinants of health that impacted care today? How? (Homelessness, low income, unemployed, alcoholism, drug addiction, transportation, low edu. Level, literacy, decrease access to med. care, long-term, rehab)? @ -No Was there de-escalation of care discussed even if they declined (Discuss DNR or withdrawal of care, Hospice)? DNR status @ -No What co-morbidities impacted this encounter? (DM, HTN, Smoking, COPD, CAD, Cancer, CVA, ARF, Chemo, Hep., AIDS, mental health diagnosis, sleep apnea, morbid obesity)? @ -Diabetes Was patient admitted / discharged? Hospital course, mention meds given and route, prescriptions, significant lab abnormalities, going to OR and other pertinent info. @ -Discharge patient presented for hyperglycemia patient's prescription for Phenergan IV fluids, patient has greatly improved after changes otherwise unremarkable. Undiagnosed new problem with uncertain prognosis? @ -No Drug Therapy requiring intensive monitoring for toxicity (Heparin, Nitro, Insulin, Cardizem)? @ -No Were any procedures done? @ -No Diagnosis/symptom? @ -Hyperglycemia Acute, or Chronic, or Acute on Chronic? @ -Acute Uncomplicated (without systemic symptoms) or Complicated (systemic symptoms)? @ -complicated Side effects of treatment? @ -No Exacerbation, Progression, or Severe Exacerbation? @ -No] Poses a threat to life or bodily function? How? (Chest pain, [place], [place], pneumonia, PE, COPD, DKA, ARF, appy, cholecystitis, CVA, Diverticulitis, Homicidal, Suicidal, threat to staff... and all critical care pts) @ -[No] - Lab Data Result diagrams: 02/20/23 12:12 02/20/23 12:12 Lab Results 02/20/23 02/20/23 02/20/23 Range/Units 11:54 12:12 12:12 WBC 6.7 (3.8-10.6) k/uL RBC 5.26 (4.30-5.90) m/uL Hgb 15.9 (13.0-17.5) gm/dL Hct 44.7 (39.0-53.0) % MCV 85.0 (80.0-100.0) fL MCH 30.2 (25.0-35.0) pg MCHC 35.6 (31.0-37.0) g/dL RDW 13.0 (11.5-15.5) % Plt Count 184 (150-450) k/uL MPV 7.9 Neutrophils % 71 % Lymphocytes % 18 % Monocytes % 3 % Eosinophils % 6 % Basophils % 1 % Neutrophils # 4.8 (1.3-7.7) k/uL Lymphocytes # 1.2 (1.0-4.8) k/uL Monocytes # 0.2 (0-1.0) k/uL Eosinophils # 0.4 (0-0.7) k/uL Basophils # 0.1 (0-0.2) k/uL VBG pH (7.31-7.41) VBG pCO2 (37-51) mmHg VBG HCO3 (24-28) mmol/L Sodium (137-145) mmol/L Potassium (3.5-5.1) mmol/L Chloride (98-107) mmol/L Carbon Dioxide (22-30) mmol/L Anion Gap mmol/L BUN (9-20) mg/dL Creatinine (0.66-1.25) mg/dL Est GFR (CKD-EPI)AfAm (>60 ml/min/1.73 sqM) Est GFR (CKD-EPI)NonAf (>60 ml/min/1.73 sqM) Glucose (74-99) mg/dL POC Glucose (mg/dL) 366 H (70-110) mg/dL POC Glu Dental Laboratory Worker ID Marilee Helga Plasma Lactic Acid Elio (0.7-2.0) mmol/L Calcium (8.4-10.2) mg/dL Magnesium (1.6-2.3) mg/dL Total Bilirubin (0.2-1.3) mg/dL AST (17-59) U/L ALT (4-49) U/L Alkaline Phosphatase (38-126) U/L Total Protein (6.3-8.2) g/dL Albumin (3.5-5.0) g/dL Lipase (23-300) U/L Urine Color Light Yellow Urine Appearance Clear (Clear) Urine pH 6.5 (5.0-8.0) Ur Specific [place] 1.028 (1.001-1.035) Urine Protein Negative (Negative) Urine Glucose (UA) 4+ H (Negative) Urine Ketones Negative (Negative) Urine Blood Negative (Negative) Urine Nitrite Negative (Negative) Urine Bilirubin Negative (Negative) Urine Urobilinogen <2.0 (<2.0) mg/dL Ur Leukocyte Esterase Negative (Negative) Acetone, Qual (Negative) 02/20/23 02/20/23 02/20/23 Range/Units 12:12 12:12 12:40 WBC (3.8-10.6) k/uL RBC (4.30-5.90) m/uL Hgb (13.0-17.5) gm/dL Hct (39.0-53.0) % MCV (80.0-100.0) fL MCH (25.0-35.0) pg MCHC (31.0-37.0) g/dL RDW (11.5-15.5) % Plt Count (150-450) k/uL MPV Neutrophils % % Lymphocytes % % Monocytes % % Eosinophils % % Basophils % % Neutrophils # (1.3-7.7) k/uL Lymphocytes # (1.0-4.8) k/uL Monocytes # (0-1.0) k/uL Eosinophils # (0-0.7) k/uL Basophils # (0-0.2) k/uL VBG pH 7.37 (7.31-7.41) VBG pCO2 49 (37-51) mmHg VBG HCO3 29 H (24-28) mmol/L Sodium 133 L (137-145) mmol/L Potassium 4.7 (3.5-5.1) mmol/L Chloride 98 (98-107) mmol/L Carbon Dioxide 27 (22-30) mmol/L Anion Gap 8 mmol/L BUN 15 (9-20) mg/dL Creatinine 0.88 (0.66-1.25) mg/dL Est GFR (CKD-EPI)AfAm >90 (>60 ml/min/1.73 sqM) Est GFR (CKD-EPI)NonAf >90 (>60 ml/min/1.73 sqM) Glucose 413 H (74-99) mg/dL POC Glucose (mg/dL) (70-110) mg/dL POC Glu Dental Laboratory Worker ID Plasma Lactic Acid Elio 1.0 (0.7-2.0) mmol/L Calcium 8.8 (8.4-10.2) mg/dL Magnesium 1.9 (1.6-2.3) mg/dL Total Bilirubin 0.9 (0.2-1.3) mg/dL AST 27 (17-59) U/L ALT 42 (4-49) U/L Alkaline Phosphatase 122 (38-126) U/L Total Protein 7.2 (6.3-8.2) g/dL Albumin 4.5 (3.5-5.0) g/dL Lipase 30 (23-300) U/L Urine Color Urine Appearance (Clear) Urine pH (5.0-8.0) Ur Specific [place] (1.001-1.035) Urine Protein (Negative) Urine Glucose (UA) (Negative) Urine Ketones (Negative) Urine Blood (Negative) Urine Nitrite (Negative) Urine Bilirubin (Negative) Urine Urobilinogen (<2.0) mg/dL Ur Leukocyte Esterase (Negative) Acetone, Qual Negative (Negative) 02/20/23 Range/Units 13:21 WBC (3.8-10.6) k/uL RBC (4.30-5.90) m/uL Hgb (13.0-17.5) gm/dL Hct (39.0-53.0) % MCV (80.0-100.0) fL MCH (25.0-35.0) pg MCHC (31.0-37.0) g/dL RDW (11.5-15.5) % Plt Count (150-450) k/uL MPV Neutrophils % % Lymphocytes % % Monocytes % % Eosinophils % % Basophils % % Neutrophils # (1.3-7.7) k/uL Lymphocytes # (1.0-4.8) k/uL Monocytes # (0-1.0) k/uL Eosinophils # (0-0.7) k/uL Basophils # (0-0.2) k/uL VBG pH (7.31-7.41) VBG pCO2 (37-51) mmHg VBG HCO3 (24-28) mmol/L Sodium (137-145) mmol/L Potassium (3.5-5.1) mmol/L Chloride (98-107) mmol/L Carbon Dioxide (22-30) mmol/L Anion Gap mmol/L BUN (9-20) mg/dL Creatinine (0.66-1.25) mg/dL Est GFR (CKD-EPI)AfAm (>60 ml/min/1.73 sqM) Est GFR (CKD-EPI)NonAf (>60 ml/min/1.73 sqM) Glucose (74-99) mg/dL POC Glucose (mg/dL) 262 H (70-110) mg/dL POC Glu Dental Laboratory Worker ID Willing, Reina Plasma Lactic Acid Elio (0.7-2.0) mmol/L Calcium (8.4-10.2) mg/dL Magnesium (1.6-2.3) mg/dL Total Bilirubin (0.2-1.3) mg/dL AST (17-59) U/L ALT (4-49) U/L Alkaline Phosphatase (38-126) U/L Total Protein (6.3-8.2) g/dL Albumin (3.5-5.0) g/dL Lipase (23-300) U/L Urine Color Urine Appearance (Clear) Urine pH (5.0-8.0) Ur Specific [place] (1.001-1.035) Urine Protein (Negative) Urine Glucose (UA) (Negative) Urine Ketones (Negative) Urine Blood (Negative) Urine Nitrite (Negative) Urine Bilirubin (Negative) Urine Urobilinogen (<2.0) mg/dL Ur Leukocyte Esterase (Negative) Acetone, Qual (Negative) Disposition Clinical Impression: Hyperglycemia, Diabetes mellitus type 1 Disposition: HOME SELF-CARE Condition: Stable Additional Instructions: Please return to the Emergency Department if symptoms worsen or any other concerns. Is patient prescribed a controlled substance at d/c from ED?: No Referrals: Lenka Chowdhury [Primary Care Provider] - 1-2 days Time of Disposition: 13:41
[2023-02-20 12:21] LABS: Basophils # (A) 0.1 k/uL (0-0.2); Basophils % (A) 1 %; Eosinophils # (A) 0.4 k/uL (0-0.7); Eosinophils % (A) 6 %; HCT 44.7 % (39.0-53.0); HGB 15.9 gm/dL (13.0-17.5); Lymphocytes # (A) 1.2 k/uL (1.0-4.8); Lymphocytes % (A) 18 %; MCH 30.2 pg (25.0-35.0); MCHC 35.6 g/dL (31.0-37.0); Mean Platelet Volume 7.9; Monocytes # (A) 0.2 k/uL (0-1.0); Monocytes % (A) 3 %; Neutrophils # (A) 4.8 k/uL (1.3-7.7); Neutrophils % (A) 71 %; Platelet Count 184 k/uL (150-450); RBC 5.26 m/uL (4.30-5.90); WBC 6.7 k/uL (3.8-10.6)
[2023-02-20 12:22] LABS: Appearance,Urine Clear (Clear); Bilirubin,Urine Negative (Negative); Blood,Urine Negative (Negative); Color,Urine Light Yellow; Glucose,Urine (UA) 4+ (Negative); Ketones,Urine Negative (Negative); Leukocyte Esterase,Urine Negative (Negative); Nitrite,Urine Negative (Negative); PH, Urine 6.5 (5.0-8.0); Protein,Urine Negative (Negative); Specific Gravity,Urine 1.028 (1.001-1.035); Urobilinogen,Urine <2.0 mg/dL (<2.0)
[2023-02-20 12:42] LABS: VBG PH 7.37 (7.31-7.41)
[2023-02-20 12:57] LABS: ALT 42 U/L (4-49); AST 27 U/L (17-59); African American GFR (CKD) >90 (>60 ml/min/1.73 sqM); Albumin 4.5 g/dL (3.5-5.0); Alkaline Phosphatase 122 U/L (38-126); Anion Gap 8 mmol/L; Blood Urea Nitrogen 15 mg/dL (9-20); Calcium 8.8 mg/dL (8.4-10.2); Carbon Dioxide 27 mmol/L (22-30); Chloride 98 mmol/L (98-107); Glucose 413 mg/dL (74-99); Lipase 30 U/L (23-300); Magnesium 1.9 mg/dL (1.6-2.3); Non-African American GFR(CKD) >90 (>60 ml/min/1.73 sqM); Potassium 4.7 mmol/L (3.5-5.1); Sodium 133 mmol/L (137-145); Total Bilirubin 0.9 mg/dL (0.2-1.3); Total Protein 7.2 g/dL (6.3-8.2)
[2023-02-20 13:23] LABS: Glucose,Whole Blood 262 mg/dL (70-110)
[2023-02-20 14:01] VITALS: BP 124/79
== END 2023-02-20 14:02 | disposition home or self-care (01) ==
LOC: EC 11:34
DX: E10.65 Type 1 diabetes mellitus with hyperglycemia (principal); J45.909 Unspecified asthma, uncomplicated; F17.290 Nicotine dependence, other tobacco product, uncomplicated; Z79.4 Long term (current) use of insulin; Z86.16 Personal history of COVID-19
CPT/HCPCS: 36415; 80053; 81003; 82009; 82803; 83605; 83690; 83735; 85025; 96360; 96361; 99283

== ENCOUNTER 2023-03-31 11:06 | Emergency (ER) | payer OTHER ==
[2023-03-31 11:31] VITALS: BP 126/84; TEMP 98.1
[2023-03-31] MEDS ORDERED: CIPROFLOXACIN-DEXAMETH 0.3-0.1% DROPS 7.5 ML BTL RIGHT EAR STA (13:44)
--- NOTE | 2023-03-31 13:46 | ED ---
General Adult HPI - General Chief complaint: ENT Stated complaint: R Earache Time Seen by Provider: 03/31/23 12:05 Source: patient Mode of arrival: ambulatory Limitations: no limitations - History of Present Illness Initial comments: 33-year-old male presents to the emergency department chief complaint of right ear pain 1 week. He states that he tried an [id number] eardrops last night which did not help. He'll uses one time. He denies any fever, chills, drainage from the right ear. He reports that he has a diabetic but his blood sugars are well-controlled. He denies any changes in his hearing. - Related Data Home Medications Medication Instructions Recorded Confirmed Insulin Aspart (For Pump) [NovoLOG 0.01 unit SQ-PUMP CONTINUOUS 12/20/20 02/20/23 (For Pump)] Albuterol Inhaler [Ventolin Hfa 1 - 2 puff INHALATION RT-Q6H PRN 02/20/23 02/20/23 Inhaler] Glucagon Emergency Kit 1 mg IM ONCE PRN 02/20/23 02/20/23 Previous Rx's Medication Instructions Recorded Ondansetron Odt [Zofran Odt] 4 mg PO Q8HR PRN #10 tab 09/28/22 Allergies Allergy/AdvReac Type Severity Reaction Status Date / Time No Known Allergies Allergy Verified 02/20/23 13:44 Review of Systems ROS Statement: Those systems with pertinent positive or pertinent negative responses have been documented in the HPI. ROS Other: All systems not noted in ROS Statement are negative. Past Medical History Past Medical History: Asthma, Diabetes Mellitus, GERD/Reflux Additional Past Medical History / Comment(s): DM type I, gastroparesis, Covid End of Jul 2020 History of Any Multi-Drug Resistant Organisms: None Reported Past Surgical History: Cholecystectomy Past Anesthesia/Blood Transfusion Reactions: Postoperative Nausea & Vomiting (PONV) Additional Past Anesthesia/Blood Transfusion Reaction / Comment(s): Pt has never received blood. Past Psychological History: No Psychological Hx Reported Smoking Status: Vaper Past Alcohol Use History: Occasional Past Drug Use History: None Reported - Past Family History Father Family Medical History: Diabetes Mellitus, Hypertension Additional Family Medical History / Comment(s): type II diabetes. Mother Family Medical History: COPD Brother(s) Family Medical History: Diabetes Mellitus Additional Family Medical History / Comment(s): IDDM type I Sister(s) Family Medical History: No Reported History General Exam - General Exam Comments Initial Comments: Vital signs reviewed General: Well-appearing, nontoxic, no acute distress, CNII-XII intact Head: Normocephalic, atraumatic Eyes: PERRLA, EOMI ENT: Airway patent, left ear canal patent, normal TM; right ear canal mildly swollen without any obvious drainage or erosion, normal TM; mastoids non tender bilaterally Chest: Nonlabored breathing. Cardiac regular rate and rhythm Respiratory: Lungs CTAB Skin: No visual rash, normal skin tone Neuro: Alert and oriented 3 Musculoskeletal: No gross abnormalities Limitations: no limitations Course Vital Signs 03/31/23 03/31/23 11:26 14:05 Temperature 98.1 F Pulse Rate 90 87 Respiratory 20 16 Rate Blood Pressure 126/84 O2 Sat by Pulse 99 98 Oximetry Medical Decision Making - Medical Decision Making Was pt. sent in by a medical professional or institution (, PA, SOFTWARE CONFIGURATION SPECIALIST, urgent care, hospital, or longterm...) When possible be specific @ -No Did you speak to anyone other than the patient for history (EMS, parent, family, police, friend...)? What history was obtained from this source @ -No Did you review nursing and triage notes (agree or disagree)? Why? @ -I reviewed and agree with nursing and triage notes Were old charts reviewed (outside hosp., previous admission, EMS record, old EKG, old radiological studies, urgent care reports/EKG's, longterm records)? Report findings @ -No old charts were reviewed Differential Diagnosis (chest pain, altered mental status, abdominal pain women, abdominal pain men, vaginal bleeding, weakness, fever, dyspnea, syncope, headache, dizziness, GI bleed, back pain, seizure, CVA, palpatations, mental health, musculoskeletal)? @ -Otitis media, otitis externa, malignant otitis externa, mastoiditis, this list is not all inclusive EKG interpreted by me (3pts min.). @ -none X-rays interpreted by me (1pt min.). @ -None done CT interpreted by me (1pt min.). @ -None done U/S interpreted by me (1pt. min.). @ -None done What testing was considered but not performed or refused? (CT, X-rays, U/S, labs)? Why? @ -None What meds were considered but not given or refused? Why? @ -None Did you discuss the management of the patient with other professionals (professionals i.e. , ENRIQUE, SOFTWARE CONFIGURATION SPECIALIST, lab, RT, psych nurse, social service manager, thermocouple tester, teacher, financial services officer, case picker)? Give summary @ -No Was smoking cessation discussed for >3mins.? @ -No Was critical care preformed (if so, how long)? @ -No Were there social determinants of health that impacted care today? How? (Homelessness, low income, unemployed, alcoholism, drug addiction, bravo sportation, low edu. Level, literacy, decrease access to med. care, fpc, rehab)? @ -No Was there de-escalation of care discussed even if they declined (Discuss DNR or withdrawal of care, Hospice)? DNR status @ -No What co-morbidities impacted this encounter? (DM, HTN, Smoking, COPD, CAD, Cancer, CVA, ARF, Chemo, Hep., AIDS, mental health diagnosis, sleep apnea, morbid obesity)? @ -None Was patient admitted / discharged? Hospital course, mention meds given and route, prescriptions, significant lab abnormalities, going to OR and other pertinent info. @ -discharged. Patient presented to the emergency department for chief complaint of right ear pain 1 week. He states that last night he used over the ear drops which did not help. He reports that he only uses one time. Right ear canal is mildly swollen without any obvious drainage. Patient given Ciprodex ear drops and advised to follow-up with ENT and his primary care provider. Patient stable at time of discharge. Case discussed my attending, Dr. Chacon who also evaluated the patient. Undiagnosed new problem with uncertain prognosis? @ -No Drug Therapy requiring intensive monitoring for toxicity (Heparin, Nitro, Insulin, Cardizem)? @ -No Were any procedures done? @ -No Diagnosis/symptom? @ -otitis externa Acute, or Chronic, or Acute? @ -acute Uncomplicated (without systemic symptoms) or Complicated (systemic symptoms)? @ -uncomplicated Side effects of treatment? @ -No Exacerbation, Progression, or Severe Exacerbation? @ -No Poses a threat to life or bodily function? How? (Chest pain, [place], [place], pneumonia, PE, COPD, DKA, ARF, appy, cholecystitis, CVA, Diverticulitis, Homicidal, Suicidal, threat to staff... and all critical care pts) @ -No Disposition Clinical Impression: Otitis externa Disposition: HOME SELF-CARE Condition: Stable Instructions (If sedation given, give patient instructions): Swimmer's Ear (ED) Additional Instructions: Please instill 4 drops twice daily for 7 days. Follow-up with your primary care provider and ENT. Return to the emergency department for new or worsening symptoms. Is patient prescribed a controlled substance at d/c from ED?: No Referrals: Lenka Chowdhury [Primary Care Provider] - 1-2 days Diallo Boothe MD [STAFF PHYSICIAN] - 1-2 days
[2023-03-31 14:10] VITALS: PULSE 87; RESP 16
== END 2023-03-31 14:06 | disposition home or self-care (01) ==
LOC: EC 11:06
DX: H60.91 Unspecified otitis externa, right ear (principal); E10.43 Type 1 diabetes mellitus with diabetic autonomic (poly)neuropathy; K31.84 Gastroparesis; J45.909 Unspecified asthma, uncomplicated; F17.290 Nicotine dependence, other tobacco product, uncomplicated; Z79.899 Other long term (current) drug therapy; Z86.16 Personal history of COVID-19; Z90.49 Acquired absence of other specified parts of digestive tract
CPT/HCPCS: 99282

== ENCOUNTER 2023-05-29 13:14 | Emergency (ER) | payer OTHER ==
[2023-05-29 13:52] LABS: Glucose,Whole Blood 154 mg/dL (70-110)
[2023-05-29 14:02] VITALS: RESP 18
--- NOTE | 2023-05-29 14:24 | ED ---
URI HPI - General Chief Complaint: Upper Respiratory Infection Stated Complaint: fatigue,SOB Time Seen by Provider: 05/29/23 13:41 Source: patient, RN notes reviewed Mode of arrival: ambulatory Limitations: no limitations - History of Present Illness Initial Comments: Patient is a 33-year-old male presented ER with chief complaint of URI. Patient states for the past couple of days he has felt extremely fatigued. He endorses associated congestion, mild cough and shortness of breath. Patient is unaware of any known sick contacts. Patient states she is also having a darkening color to his urine. Patient denies any fevers, chest pain, abdominal pain, peripheral edema. - Related Data Home Medications Medication Instructions Recorded Confirmed Insulin Aspart (For Pump) [NovoLOG 0.01 unit SQ-PUMP CONTINUOUS 12/20/20 02/20/23 (For Pump)] Albuterol Inhaler [Ventolin Hfa 1 - 2 puff INHALATION RT-Q6H PRN 02/20/23 02/20/23 Inhaler] Glucagon Emergency Kit 1 mg IM ONCE PRN 02/20/23 02/20/23 Previous Rx's Medication Instructions Recorded Ondansetron Odt [Zofran Odt] 4 mg PO Q8HR PRN #10 tab 09/28/22 Allergies Allergy/AdvReac Type Severity Reaction Status Date / Time No Known Allergies Allergy Verified 05/29/23 13:37 Review of Systems ROS Statement: Those systems with pertinent positive or pertinent negative responses have been documented in the HPI. ROS Other: All systems not noted in ROS Statement are negative. Past Medical History Past Medical History: Asthma, Diabetes Mellitus, GERD/Reflux Additional Past Medical History / Comment(s): DM type I, gastroparesis, Covid End of Jul 2020 History of Any Multi-Drug Resistant Organisms: None Reported Past Surgical History: Cholecystectomy Past Anesthesia/Blood Transfusion Reactions: Postoperative Nausea & Vomiting (PONV) Additional Past Anesthesia/Blood Transfusion Reaction / Comment(s): Pt has never received blood. Past Psychological History: No Psychological Hx Reported Smoking Status: Vaper Past Alcohol Use History: None Reported Past Drug Use History: None Reported - Past Family History Father Family Medical History: Diabetes Mellitus, Hypertension Additional Family Medical History / Comment(s): type II diabetes. Mother Family Medical History: COPD Brother(s) Family Medical History: Diabetes Mellitus Additional Family Medical History / Comment(s): IDDM type I Sister(s) Family Medical History: No Reported History General Exam Limitations: no limitations General appearance: alert, in no apparent distress Eye exam: Present: normal appearance, PERRL, EOMI. Absent: scleral icterus, conjunctival injection, periorbital swelling ENT exam: Present: normal exam, mucous membranes moist Neck exam: Present: normal inspection. Absent: tenderness, meningismus, lymphadenopathy Respiratory exam: Present: normal lung sounds bilaterally. Absent: respiratory distress, wheezes, rales, rhonchi, stridor Cardiovascular Exam: Present: regular rate, normal rhythm, normal heart sounds. Absent: systolic murmur, diastolic murmur, rubs, gallop, clicks GI/Abdominal exam: Present: soft, normal bowel sounds. Absent: distended, tenderness, guarding, rebound, rigid Neurological exam: Present: alert, oriented X3, CN II-XII intact Psychiatric exam: Present: normal affect, normal mood Skin exam: Present: warm, dry, intact, normal color. Absent: rash Course Vital Signs 05/29/23 05/29/23 13:33 13:42 Temperature 98.5 F Pulse Rate 82 Respiratory 20 18 Rate Blood Pressure 128/77 O2 Sat by Pulse 97 Oximetry Medical Decision Making - Medical Decision Making Was pt. sent in by a medical professional or institution (ENRIQUE Burris, SOFTWARE SECURITY CONSULTANT, urgent care, hospital, or fpc...) When possible be specific @ -No Did you speak to anyone other than the patient for history (EMS, parent, family, police, friend...)? What history was obtained from this source @ -No Did you review nursing and triage notes (agree or disagree)? Why? @ -I reviewed and agree with nursing and triage notes Were old charts reviewed (outside hosp., previous admission, EMS record, old EKG, old radiological studies, urgent care reports/EKG's, fpc records)? Report findings @ -No old charts were reviewed Differential Diagnosis (chest pain, altered mental status, abdominal pain women, abdominal pain men, vaginal bleeding, weakness, fever, dyspnea, syncope, headache, dizziness, GI bleed, back pain, seizure, CVA, palpatations, mental health, musculoskeletal)? @ -COVID-19, RSV, influenza, viral sinusitis, UTI EKG interpreted by me (3pts min.). @ -None X-rays interpreted by me (1pt min.). @ -None done CT interpreted by me (1pt min.). @ -None done U/S interpreted by me (1pt. min.). @ -None done What testing was considered but not performed or refused? (CT, X-rays, U/S, labs)? Why? @ -None What meds were considered but not given or refused? Why? @ -None Did you discuss the management of the patient with other professionals (professionals i.e. , PA, SOFTWARE SECURITY CONSULTANT, lab, RT, psych nurse, social media executive, film masker, teacher, public information officer, casework manager)? Give summary @ -No Was smoking cessation discussed for >3mins.? @ -No Was critical care preformed (if so, how long)? @ -No Were there social determinants of health that impacted care today? How? (Homelessness, low income, unemployed, alcoholism, drug addiction, transportation, low edu. Level, literacy, decrease access to med. care, [facility], rehab)? @ -No Was there de-escalation of care discussed even if they declined (Discuss DNR or withdrawal of care, Hospice)? DNR status @ -No What co-morbidities impacted this encounter? (DM, HTN, Smoking, COPD, CAD, Cancer, CVA, ARF, Chemo, Hep., AIDS, mental health diagnosis, sleep apnea, morbid obesity)? @ -Diabetes mellitus Was patient admitted / discharged? Hospital course, mention meds given and route, prescriptions, significant lab abnormalities, going to OR and other pertinent info. @ -Discharge. Viral swab obtained in the ER were negative. Urinalysis was negative. Patient's blood sugar upon arrival was 156. As he was waiting for lab results he stated he felt like his sugar was dropping. Patient ate a sandwich and blood sugar was rechecked at 136. Patient will be discharged home in stable condition with follow-up to PCP. Return parameters were discussed. Patient expressed understanding and agreement with care plan. Undiagnosed new problem with uncertain prognosis? @ -No Drug Therapy requiring intensive monitoring for toxicity (Heparin, Nitro, Insulin, Cardizem)? @ -No Were any procedures done? @ -No Diagnosis/symptom? @ -Viral sinusitis Acute, or Chronic, or Acute on Chronic? @ -Acute Uncomplicated (without systemic symptoms) or Complicated (systemic symptoms)? @ -Uncomplicated Side effects of treatment? @ -No Exacerbation, Progression, or Severe Exacerbation? @ -No Poses a threat to life or bodily function? How? (Chest pain, [place], [place], pneumonia, PE, COPD, DKA, ARF, appy, cholecystitis, CVA, Diverticulitis, Homicidal, Vibha cidal, threat to staff... and all critical care pts) @ -No - Lab Data Lab Results 05/29/23 05/29/23 05/29/23 Range/Units 13:46 13:51 15:03 POC Glucose (mg/dL) 154 H (70-110) mg/dL POC Glu Registered Nurse [employer] Transplant ID Mahesh Raymond Urine Color Colorless Urine Appearance Clear (Clear) Urine pH 5.5 (5.0-8.0) Ur Specific [place] 1.011 (1.001-1.035) Urine Protein Negative (Negative) Urine Glucose (UA) Negative (Negative) Urine Ketones Negative (Negative) Urine Blood Negative (Negative) Urine Nitrite Negative (Negative) Urine Bilirubin Negative (Negative) Urine Urobilinogen <2.0 (<2.0) mg/dL Ur Leukocyte Esterase Negative (Negative) Influenza Type A (PCR) Not Detected (Not Detectd) Influenza Type B (PCR) Not Detected (Not Detectd) RSV (PCR) Not Detected (Not Detectd) SARS-CoV-2 (PCR) Not Detected (Not Detectd) 05/29/23 Range/Units 15:58 POC Glucose (mg/dL) 133 H (70-110) mg/dL POC Glu Registered Nurse [employer] Marrow Transplant ID Raymond Aragon Urine Color Urine Appearance (Clear) Urine pH (5.0-8.0) Ur Specific [place] (1.001-1.035) Urine Protein (Negative) Urine Glucose (UA) (Negative) Urine Ketones (Negative) Urine Blood (Negative) Urine Nitrite (Negative) Urine Bilirubin (Negative) Urine Urobilinogen (<2.0) mg/dL Ur Leukocyte Esterase (Negative) Influenza Type A (PCR) (Not Detectd) Influenza Type B (PCR) (Not Detectd) RSV (PCR) (Not Detectd) SARS-CoV-2 (PCR) (Not Detectd) Disposition Clinical Impression: Viral sinusitis Disposition: HOME SELF-CARE Condition: Stable Additional Instructions: Please return to the Emergency Department if symptoms worsen or any other concerns. Is patient prescribed a controlled substance at d/c from ED?: No Referrals: Lenka Chowdhury [Primary Care Provider] - 1-2 days Time of Disposition: 16:16
[2023-05-29 15:59] LABS: Glucose,Whole Blood 133 mg/dL (70-110)
[2023-05-29 15:59] LABS: Appearance,Urine Clear (Clear); Bilirubin,Urine Negative (Negative); Blood,Urine Negative (Negative); Color,Urine Colorless; Glucose,Urine (UA) Negative (Negative); Ketones,Urine Negative (Negative); Leukocyte Esterase,Urine Negative (Negative); Nitrite,Urine Negative (Negative); PH, Urine 5.5 (5.0-8.0); Protein,Urine Negative (Negative); Specific Gravity,Urine 1.011 (1.001-1.035); Urobilinogen,Urine <2.0 mg/dL (<2.0)
[2023-05-29 16:32] VITALS: BP 124/86; PULSE 80; TEMP 98.1
== END 2023-05-29 16:28 | disposition home or self-care (01) ==
LOC: EC 13:14
DX: J32.9 Chronic sinusitis, unspecified (principal); E10.43 Type 1 diabetes mellitus with diabetic autonomic (poly)neuropathy; K31.84 Gastroparesis; J45.909 Unspecified asthma, uncomplicated; F17.290 Nicotine dependence, other tobacco product, uncomplicated; Z20.822 Contact with and (suspected) exposure to COVID-19; Z86.16 Personal history of COVID-19; Z90.49 Acquired absence of other specified parts of digestive tract
CPT/HCPCS: 36415; 81003; 87636; 99284

== ENCOUNTER 2023-07-04 18:24 | Emergency (ER) | payer BC, OTHER ==
[2023-07-04 18:53] VITALS: TEMP 98.4
[2023-07-04 18:54] LABS: Glucose,Whole Blood 240 mg/dL (70-110)
[2023-07-04 19:15] LABS: Appearance,Urine Clear (Clear); Bilirubin,Urine Negative (Negative); Blood,Urine Negative (Negative); Color,Urine Light Yellow; Glucose,Urine (UA) 4+ (Negative); Ketones,Urine Negative (Negative); Leukocyte Esterase,Urine Negative (Negative); Nitrite,Urine Negative (Negative); Protein,Urine Negative (Negative); Specific Gravity,Urine 1.026 (1.001-1.035); Urobilinogen,Urine <2.0 mg/dL (<2.0)
--- NOTE | 2023-07-04 19:25 | ED ---
General Adult HPI - General Source: patient Mode of arrival: ambulatory Limitations: no limitations <Mert Mendez - Last Filed: 07/04/23 19:25> <Vidal Valdes - Last Filed: 07/04/23 20:50> - General Chief complaint: Upper Respiratory Infection Stated complaint: sugar levels up and down last 2 days Time Seen by Provider: 07/04/23 19:22 - History of Present Illness Initial comments: 33-year-old male with a past medical treatment for type 1 diabetes presenting to the ED with a chief complaint of fatigue. Patient reports over the past 2 days his blood sugars have been varying from the 200s to 400s. Additionally, notes some nausea, diarrhea, headache, and congestion. Denies fever. (Mert Mendez) 33-year-old male with history of type 1 diabetes presenting with chief complaint of hyperglycemia. Patient reports that over the past 2 days his sugars have been unusually high and occasionally drop unusually low. He states that today he started experiencing fatigue, body aches, chills, nausea, diarrhea, headache and congestion. Denies fever, abdominal pain, chest pain, difficulty breathing, vomiting (Vidal Valdes) - Related Data Home Medications Medication Instructions Recorded Confirmed Insulin Aspart (For Pump) [NovoLOG 0.01 unit SQ-PUMP CONTINUOUS 12/20/20 02/20/23 (For Pump)] Albuterol Inhaler [Ventolin Hfa 1 - 2 puff INHALATION RT-Q6H PRN 02/20/23 02/20/23 Inhaler] Glucagon Emergency Kit 1 mg IM ONCE PRN 02/20/23 02/20/23 Previous Rx's Medication Instructions Recorded Ondansetron Odt [Zofran Odt] 4 mg PO Q8HR PRN #10 tab 09/28/22 Allergies Allergy/AdvReac Type Severity Reaction Status Date / Time No Known Allergies Allergy Verified 05/29/23 13:37 Review of Systems ROS Other: All systems not noted in ROS Statement are negative. <Mert Mendez - Last Filed: 07/04/23 19:25> ROS Other: All systems not noted in ROS Statement are negative. <Vidal Valdes - Last Filed: 07/04/23 20:50> ROS Statement: Those systems with pertinent positive or pertinent negative responses have been documented in the HPI. Past Medical History Past Medical History: Asthma, Diabetes Mellitus, GERD/Reflux Additional Past Medical History / Comment(s): DM type I, gastroparesis, Covid End of Jul 2020 History of Any Multi-Drug Resistant Organisms: None Reported Past Surgical History: Cholecystectomy Past Anesthesia/Blood Transfusion Reactions: Postoperative Nausea & Vomiting (PONV) Additional Past Anesthesia/Blood Transfusion Reaction / Comment(s): Pt has never received blood. Past Psychological History: No Psychological Hx Reported Smoking Status: Vaper Past Alcohol Use History: None Reported Past Drug Use History: None Reported - Past Family History Father Family Medical History: Diabetes Mellitus, Hypertension Additional Family Medical History / Comment(s): type II diabetes. Mother Family Medical History: COPD Brother(s) Family Medical History: Diabetes Mellitus Additional Family Medical History / Comment(s): IDDM type I Sister(s) Family Medical History: No Reported History <Mert Mendez - Last Filed: 07/04/23 19:25> General Exam Limitations: no limitations <Mert Mendez - Last Filed: 07/04/23 19:25> Limitations: no limitations General appearance: alert, in no apparent distress Head exam: Present: atraumatic, normocephalic Eye exam: Present: normal appearance Neck exam: Present: normal inspection Respiratory exam: Present: normal lung sounds bilaterally. Absent: respiratory distress, wheezes, rales, rhonchi, stridor Cardiovascular Exam: Present: regular rate, normal rhythm, normal heart sounds. Absent: systolic murmur, diastolic murmur, rubs, gallop, clicks Extremities exam: Present: normal inspection Neurological exam: Present: alert, oriented X3 Psychiatric exam: Present: normal affect, normal mood Skin exam: Present: warm, dry <Vidal Valdes - Last Filed: 07/04/23 20:50> - General Exam Comments Initial Comments: Visual Physical Exam Vital signs reviewed General: Well-appearing, nontoxic, no acute distress. Head: Normocephalic, atraumatic Eyes: PERRLA, EOMI ENT: Airway patent Chest: Nonlabored breathing Skin: No visual rash, normal skin tone Neuro: Alert and oriented 3 Musculoskeletal: No gross abnormalities (Mert Mendez) Course Vital Signs 07/04/23 18:47 Temperature 98.4 F Pulse Rate 102 H Respiratory 20 Rate Blood Pressure 143/91 O2 Sat by Pulse 96 Oximetry Medical Decision Making <Mert Mendez - Last Filed: 07/04/23 19:25> <Vidal Valdes - Last Filed: 07/04/23 20:50> - Medical Decision Making Quicknote portion performed. Signed Mert Mendez PA-C (Mert Mendez) Was pt. sent in by a medical professional or institution (ENRIQUE Burris, PASTRY COOK, urgent care, hospital, or long term...) When possible be specific @ -No Did you speak to anyone other than the patient for history (EMS, parent, family, police, friend...)? What history was obtained from this source @ -No Did you review nursing and triage notes (agree or disagree)? Why? @ -I reviewed and agree with nursing and triage notes Were old charts reviewed (outside hosp., previous admission, EMS record, old EKG, old radiological studies, urgent care reports/EKG's, long term records)? Report findings @ -No old charts were reviewed Differential Diagnosis (chest pain, altered mental status, abdominal pain women, abdominal pain men, vaginal bleeding, weakness, fever, dyspnea, syncope, headache, dizziness, GI bleed, back pain, seizure, CVA, palpatations, mental health, musculoskeletal)? @ -Differential includes influenza, RSV, Covid, DKA, this is not an all inclusive last EKG interpreted by me (3pts min.). @ -As above X-rays interpreted by me (1pt min.). @ -None done CT interpreted by me (1pt min.). @ -None done U/S interpreted by me (1pt. min.). @ -None done What testing was considered but not performed or refused? (CT, X-rays, U/S, labs)? Why? @ -None What meds were considered but not given or refused? Why? @ -None Did you discuss the management of the patient with other professionals (professionals i.e. ENRIQUE Burris, PASTRY COOK, lab, RT, psych nurse, social welfare research worker, photographer helper, teacher, planned giving officer, outpatient case manager)? Give summary @ -No Was smoking cessation discussed for >3mins.? @ -No Was critical care preformed (if so, how long)? @ -No Were there social determinants of health that impacted care today? How? (Homelessness, low income, unemployed, alcoholism, drug addiction, transportation, low edu. Level, literacy, decrease access to med. care, group home, rehab)? @ -No Was there de-escalation of care discussed even if they declined (Discuss DNR or withdrawal of care, Hospice)? DNR status @ -No What co-morbidities impacted this encounter? (DM, HTN, Smoking, COPD, CAD, Cancer, CVA, ARF, Chemo, Hep., AIDS, mental health diagnosis, sleep apnea, morbid obesity)? @ -None Was patient admitted / discharged? Hospital course, mention meds given and route, prescriptions, significant lab abnormalities, going to OR and other pertinent info. @ -33-year-old male presenting with chief complaint of hyperglycemia and body aches. Patient started experiencing body aches as well as nausea, headache, diarrhea, and fatigue today. History and physical exam were conducted. Glucose 240. Urine shows 4+ glucose, no ketones. He is negative for influenza, RSV, and Covid. Patient is likely experiencing a blood sugar discrepancies due to viral illness. He is educated on today's findings and management at home. Follow-up with PCP. Report back to ER with any new or worsening symptoms. Discussed return parameters and answered all questions. Patient conveyed verbal understanding and agreed to the plan. I discussed this case in detail with my attending Dr. Koo Undiagnosed new problem with uncertain prognosis? @ -No Drug Therapy requiring intensive monitoring for toxicity (Heparin, Nitro, Insulin, Cardizem)? @ -No Were any procedures done? @ -No Diagnosis/symptom? @ -Viral illness, hyperglycemia Acute, or Chronic, or Acute on Chronic? @ -Acute Uncomplicated (without systemic symptoms) or Complicated (systemic symptoms)? @ -Uncomplicated Side effects of treatment? @ -No Exacerbation, Progression, or Severe Exacerbation? @ -No Poses a threat to life or bodily function? How? (Chest pain, [place], [place], pneumonia, PE, COPD, DKA, ARF, appy, cholecystitis, CVA, Diverticulitis, Homicidal, Suicidal, threat to staff... and all critical care pts) @ -Low likelihood (Vidal Valdes) - Lab Data Lab Results 07/04/23 07/04/23 07/04/23 Range/Units 18:52 18:54 18:54 POC Glucose (mg/dL) 240 H (70-110) mg/dL POC Glu Christmas Tree Grower ID Jacob Paredes Urine Color Light Yellow Urine Appearance Clear (Clear) Urine pH 7.0 (5.0-8.0) Ur Specific [place] 1.026 (1.001-1.035) Urine Protein Negative (Negative) Urine Glucose (UA) 4+ H (Negative) Urine Ketones Negative (Negative) Urine Blood Negative (Negative) Urine Nitrite Negative (Negative) Urine Bilirubin Negative (Negative) Urine Urobilinogen <2.0 (<2.0) mg/dL Ur Leukocyte Esterase Negative (Negative) Influenza Type A (PCR) Not Detected (Not Detectd) Influenza Type B (PCR) Not Detected (Not Detectd) RSV (PCR) Not Detected (Not Detectd) SARS-CoV-2 (PCR) Not Detected (Not Detectd) Disposition <Mert Mendez - Last Filed: 07/04/23 19:25> Is patient prescribed a controlled substance at d/c from ED?: No Time of Disposition: 20:38 <Vidal Valdes - Last Filed: 07/04/23 20:50> Clinical Impression: Viral infection, Hyperglycemia Disposition: HOME SELF-CARE Condition: Good Instructions (If sedation given, give patient instructions): Viral Syndrome (ED), Diabetic Hyperglycemia (ED) Additional Instructions: Follow-up with PCP. Report back to ER with any new or worsening symptoms. Referrals: Lenka Chowdhury [Primary Care Provider] - 1-2 days
[2023-07-04] MEDS ORDERED: ONDANSETRON 4 MG ODT STARTER PACK 2 TAB BTL PO STA (20:46)
[2023-07-04 21:06] VITALS: BP 128/88; PULSE 95; RESP 18
== END 2023-07-04 21:00 | disposition home or self-care (01) ==
LOC: EC 18:24
DX: E11.65 Type 2 diabetes mellitus with hyperglycemia (principal); B34.9 Viral infection, unspecified; J45.909 Unspecified asthma, uncomplicated; F17.290 Nicotine dependence, other tobacco product, uncomplicated; Z79.4 Long term (current) use of insulin; Z79.899 Other long term (current) drug therapy; Z20.822 Contact with and (suspected) exposure to COVID-19
CPT/HCPCS: 36415; 81003; 87636; 99283; S0119

== ENCOUNTER 2024-04-26 15:01 | Emergency (ER) | payer BC, OTHER ==
[2024-04-26 15:10] VITALS: RESP 18; TEMP 97.9
[2024-04-26 15:11] LABS: Glucose,Whole Blood 188 mg/dL (70-110)
--- NOTE | 2024-04-26 15:45 | ED ---
Recheck HPI - General Chief Complaint: Recheck/Abnormal Lab/Rx Stated Complaint: abn blood sugar Time Seen by Provider: 04/26/24 15:16 Source: patient, RN notes reviewed Mode of arrival: ambulatory Limitations: no limitations - History of Present Illness Initial Comments: This is a 34-year-old male who presents to the emergency department for problems with his blood sugar. Patient has type 1 diabetes and states that over the last few days his blood sugar has been fluctuating substantially. It was going between 100-300. States that he feels somewhat fatigued and also has some headaches and congestion and feels like he may be getting a head cold. Denies any coughing, chest pain, or shortness of breath. He has occasional nausea but no vomiting. Denies any sick contacts. MD Complaint: abnormal lab - Related Data Home Medications Medication Instructions Recorded Confirmed Insulin Aspart (For Pump) [NovoLOG 0.01 unit SQ-PUMP CONTINUOUS 12/20/20 02/20/23 (For Pump)] Albuterol Inhaler [Ventolin Hfa 1 - 2 puff INHALATION RT-Q6H PRN 02/20/23 02/20/23 Inhaler] Glucagon Emergency Kit 1 mg IM ONCE PRN 02/20/23 02/20/23 Previous Rx's Medication Instructions Recorded Ondansetron Odt [Zofran Odt] 4 mg PO Q8HR PRN #10 tab 09/28/22 Allergies Allergy/AdvReac Type Severity Reaction Status Date / Time No Known Allergies Allergy Verified 04/26/24 15:10 Review of Systems ROS Statement: Those systems with pertinent positive or pertinent negative responses have been documented in the HPI. ROS Other: All systems not noted in ROS Statement are negative. Past Medical History Past Medical History: Asthma, Diabetes Mellitus, GERD/Reflux Additional Past Medical History / Comment(s): DM type I, gastroparesis, Covid End of Jul 2020 History of Any Multi-Drug Resistant Organisms: None Reported Past Surgical History: Cholecystectomy Past Anesthesia/Blood Transfusion Reactions: Postoperative Nausea & Vomiting (PONV) Additional Past Anesthesia/Blood Transfusion Reaction / Comment(s): Pt has never received blood. Past Psychological History: No Psychological Hx Reported Smoking Status: Vaper Past Alcohol Use History: None Reported Past Drug Use History: None Reported - Past Family History Father Family Medical History: Diabetes Mellitus, Hypertension Additional Family Medical History / Comment(s): type II diabetes. Mother Family Medical History: COPD Brother(s) Family Medical History: Diabetes Mellitus Additional Family Medical History / Comment(s): IDDM type I Sister(s) Family Medical History: No Reported History General Exam Limitations: no limitations General appearance: alert, in no apparent distress Head exam: Present: atraumatic, normocephalic, normal inspection Respiratory exam: Present: normal lung sounds bilaterally. Absent: respiratory distress, wheezes, rales, rhonchi, stridor Cardiovascular Exam: Present: regular rate, normal rhythm, normal heart sounds. Absent: systolic murmur, diastolic murmur, rubs, gallop, clicks GI/Abdominal exam: Present: soft, normal bowel sounds. Absent: distended, tenderness, guarding, rebound, rigid Neurological exam: Present: alert, oriented X3, CN II-XII intact Psychiatric exam: Present: normal affect, normal mood Skin exam: Present: warm, dry, intact, normal color. Absent: rash Course Vital Signs 04/26/24 04/26/24 15:06 17:41 Temperature 97.9 F Pulse Rate 93 94 Respiratory 18 18 Rate Blood Pressure 121/85 121/80 O2 Sat by Pulse 97 100 Oximetry Medical Decision Making - Medical Decision Making This is a 34-year-old male who presents to the emergency department for abnormal blood sugar. Was pt. sent in by a medical professional or institution? @ -No Did you speak to anyone other than the patient for history? @ -No Did you review nursing and triage notes? @ -Yes, and I agree, it is accurate with regards to the patient's symptoms. Were old charts reviewed? @ -No Differential Diagnosis? @ -Medication error, DKA, HHS, illness, this is not meant to be an all- inclusive list. EKG interpreted by me (3pts min.)? @ -Not obtained X-rays interpreted by me (1pt min.)? @ -Not obtained CT interpreted by me (1pt min.)? @ -Not obtained U/S interpreted by me (1pt. min.)? @ -Not obtained What testing was considered but not performed? (CT, X-rays, U/S, labs)? Why? @ -None What meds were considered but not given? Why? @ -None Did you discuss the management of the patient with other professionals? @ -No Did you reconcile home meds? @ -No Was smoking cessation discussed for >3mins.? @ -No Was critical care preformed (if so, how long)? @ -No Were there social determinants of health that impacted care today? How? (Homelessness, low income, unemployed, alcoholism, drug addiction, transportation, low edu. Level, literacy, decrease access to med. care, nursing home, rehab)? @ -No Was there de-escalation of care discussed even if they declined? (Discuss DNR or withdrawal of care, Hospice)? @ -No What co-morbidities impacted this encounter? (DM, HTN, Smoking, COPD, CAD, Cancer, CVA, Hep., AIDS, mental health diagnosis, sleep apnea, morbid obesity)? @ -DM Was patient admitted / discharged? @ -Discharged. Lab work relatively unremarkable aside from a blood sugar of 180. He had no signs of acidosis. COVID, influenza, and RSV testing negative. Patient given a liter bolus of IV fluids. Discussed that any illness, which he feels like he may be developing, can contribute to blood sugar fluctuations. Advised he continue to monitor his blood sugar and his symptoms at home and follow-up with his primary care provider. Patient discharged home in stable condition. Case discussed with ED attending Dr. Post. Return precautions reviewed in depth, the patient is instructed to return to the emergency department with any new, worsening, or concerning symptoms. Patient verbalized understanding. Undiagnosed new problem with uncertain prognosis? @ -None Drug Therapy requiring intensive monitoring for toxicity (Heparin, Nitro, Insulin, Cardizem)? @ -None Were any procedures done? @ -None Diagnosis/symptom? @ -URI, hyperglycemia Acute, or Chronic, or Acute on Chronic? @ -Acute Uncomplicated (without systemic symptoms) or Complicated (systemic symptoms)? @ -Uncomplicated Side effects of treatment? @ -None Exacerbation, Progression, or Severe Exacerbation] @ -Not applicable Poses a threat to life or bodily function? @ -No - Lab Data Result diagrams: 04/26/24 16:10 04/26/24 16:10 Lab Results 04/26/24 04/26/24 04/26/24 Range/Units 15:10 16:10 16:10 WBC 5.3 (3.8-10.6) k/uL RBC 5.55 (4.30-5.90) m/uL Hgb 16.4 (13.0-17.5) gm/dL Hct 46.2 (39.0-53.0) % MCV 83.3 (80.0-100.0) fL MCH 29.6 (25.0-35.0) pg MCHC 35.6 (31.0-37.0) g/dL RDW 13.5 (11.5-15.5) % Plt Count 247 (150-450) k/uL MPV 8.4 Neutrophils % 63 % Lymphocytes % 25 % Monocytes % 4 % Eosinophils % 7 % Basophils % 1 % Neutrophils # 3.3 (1.3-7.7) k/uL Lymphocytes # 1.3 (1.0-4.8) k/uL Monocytes # 0.2 (0-1.0) k/uL Eosinophils # 0.3 (0-0.7) k/uL Basophils # 0.1 (0-0.2) k/uL Hyperchromasia Slight Sodium 138 (137-145) mmol/L Potassium 4.4 (3.5-5.1) mmol/L Chloride 104 (98-107) mmol/L Carbon Dioxide 28 (22-30) mmol/L Anion Gap 6 mmol/L BUN 15 (9-20) mg/dL Creatinine 0.74 (0.66-1.25) mg/dL Est GFR (CKD-EPI)AfAm >90 (>60 ml/min/1.73 sqM) Est GFR (CKD-EPI)NonAf >90 (>60 ml/min/1.73 sqM) Glucose 180 H (74-99) mg/dL POC Glucose (mg/dL) 188 H (70-110) mg/dL POC Glu Certified Surgical Technologist ID Maryanne Maria Luisa Plasma Lactic Acid Elio (0.7-2.0) mmol/L Calcium 9.6 (8.4-10.2) mg/dL Phosphorus 3.3 (2.5-4.5) mg/dL Magnesium 1.6 (1.6-2.3) mg/dL Total Bilirubin 1.0 (0.2-1.3) mg/dL AST 27 (17-59) U/L ALT 42 (4-49) U/L Alkaline Phosphatase 97 (38-126) U/L Total Protein 7.0 (6.3-8.2) g/dL Albumin 4.4 (3.5-5.0) g/dL Influenza Type A (PCR) (Not Detectd) Influenza Type B (PCR) (Not Detectd) RSV (PCR) (Not Detectd) SARS-CoV-2 (PCR) (Not Detectd) 04/26/24 04/26/24 Range/Units 16:10 16:10 WBC (3.8-10.6) k/uL RBC (4.30-5.90) m/uL Hgb (13.0-17.5) gm/dL Hct (39.0-53.0) % MCV (80.0-100.0) fL MCH (25.0-35.0) pg MCHC (31.0-37.0) g/dL RDW (11.5-15.5) % Plt Count (150-450) k/uL MPV Neutrophils % % Lymphocytes % % Monocytes % % Eosinophils % % Basophils % % Neutrophils # (1.3-7.7) k/uL Lymphocytes # (1.0-4.8) k/uL Monocytes # (0-1.0) k/uL Eosinophils # (0-0.7) k/uL Basophils # (0-0.2) k/uL Hyperchromasia Sodium (137-145) mmol/L Potassium (3.5-5.1) mmol/L Chloride (98-107) mmol/L Carbon Dioxide (22-30) mmol/L Anion Gap mmol/L BUN (9-20) mg/dL Creatinine (0.66-1.25) mg/dL Est GFR (CKD-EPI)AfAm (>60 ml/min/1.73 sqM) Est GFR (CKD-EPI)NonAf (>60 ml/min/1.73 sqM) Glucose (74-99) mg/dL POC Glucose (mg/dL) (70-110) mg/dL POC Glu Certified Surgical Technologist ID Plasma Lactic Acid Elio 0.7 (0.7-2.0) mmol/L Calcium (8.4-10.2) mg/dL Phosphorus (2.5-4.5) mg/dL Magnesium (1.6-2.3) mg/dL Total Bilirubin (0.2-1.3) mg/dL AST (17-59) U/L ALT (4-49) U/L Alkaline Phosphatase (38-126) U/L Total Protein (6.3-8.2) g/dL Albumin (3.5-5.0) g/dL Influenza Type A (PCR) Not Detected (Not Detectd) Influenza Type B (PCR) Not Detected (Not Detectd) RSV (PCR) Not Detected (Not Detectd) SARS-CoV-2 (PCR) Not Detected (Not Detectd) Disposition Clinical Impression: URI (upper respiratory infection) Disposition: HOME SELF-CARE Condition: Good Instructions (If sedation given, give patient instructions): Upper Respiratory Infection (ED) Additional Instructions: Return to the emergency department with any new, worsening, or concerning symptoms. Follow up with your primary care provider in 1-2 days. Is patient prescribed a controlled substance at d/c from ED?: No Referrals: Lenka Chowdhury [Primary Care Provider] - 1-2 days Time of Disposition: 17:25
[2024-04-26] MEDS: SODIUM CHLORIDE 0.9% 1,000 ML IV STA (16:19)
[2024-04-26 16:41] LABS: ALT 42 U/L (4-49); AST 27 U/L (17-59); African American GFR (CKD) >90 (>60 ml/min/1.73 sqM); Albumin 4.4 g/dL (3.5-5.0); Alkaline Phosphatase 97 U/L (38-126); Anion Gap 6 mmol/L; Blood Urea Nitrogen 15 mg/dL (9-20); Calcium 9.6 mg/dL (8.4-10.2); Carbon Dioxide 28 mmol/L (22-30); Chloride 104 mmol/L (98-107); Glucose 180 mg/dL (74-99); Magnesium 1.6 mg/dL (1.6-2.3); Non-African American GFR(CKD) >90 (>60 ml/min/1.73 sqM); Phosphorus 3.3 mg/dL (2.5-4.5); Potassium 4.4 mmol/L (3.5-5.1); Sodium 138 mmol/L (137-145)
[2024-04-26 16:57] LABS: Basophils # (A) 0.1 k/uL (0-0.2); Basophils % (A) 1 %; Eosinophils # (A) 0.3 k/uL (0-0.7); Eosinophils % (A) 7 %; HCT 46.2 % (39.0-53.0); HGB 16.4 gm/dL (13.0-17.5); Hyperchromasia Slight; Lymphocytes # (A) 1.3 k/uL (1.0-4.8); Lymphocytes % (A) 25 %; MCH 29.6 pg (25.0-35.0); MCHC 35.6 g/dL (31.0-37.0); MCV 83.3 fL (80.0-100.0); Mean Platelet Volume 8.4; Monocytes # (A) 0.2 k/uL (0-1.0); Monocytes % (A) 4 %; Neutrophils # (A) 3.3 k/uL (1.3-7.7); Neutrophils % (A) 63 %; Platelet Count 247 k/uL (150-450); RBC 5.55 m/uL (4.30-5.90); RDW 13.5 % (11.5-15.5); WBC 5.3 k/uL (3.8-10.6)
[2024-04-26 17:42] VITALS: BP 121/80; PULSE 94
[2024-04-26] MEDS: ONDANSETRON 4 MG ODT STARTER PACK 2 TAB BTL PO STA (17:51)
== END 2024-04-26 17:51 | disposition home or self-care (01) ==
LOC: EC 15:01
CPT/HCPCS: 36415; 80053; 83605; 83735; 84100; 85025; 87636; 96360; 96361; 99283

== ENCOUNTER 2024-05-31 22:37 | Emergency (ER) | payer OTHER ==
[2024-06-01 01:20] LABS: Basophils # (A) 0.1 k/uL (0-0.2); Basophils % (A) 1 %; Eosinophils # (A) 0.5 k/uL (0-0.7); Eosinophils % (A) 6 %; HCT 45.6 % (39.0-53.0); HGB 15.9 gm/dL (13.0-17.5); Lymphocytes # (A) 1.9 k/uL (1.0-4.8); Lymphocytes % (A) 26 %; MCH 29.5 pg (25.0-35.0); MCHC 34.9 g/dL (31.0-37.0); MCV 84.4 fL (80.0-100.0); Monocytes # (A) 0.3 k/uL (0-1.0); Monocytes % (A) 5 %; Neutrophils # (A) 4.3 k/uL (1.3-7.7); Neutrophils % (A) 60 %; Platelet Count 236 k/uL (150-450); RBC 5.41 m/uL (4.30-5.90); RDW 13.6 % (11.5-15.5); WBC 7.2 k/uL (3.8-10.6)
--- NOTE | 2024-06-01 01:39 | ED ---
Chest Pain HPI - General Chief Complaint: Chest Pain Stated Complaint: chest pain Time Seen by Provider: 05/31/24 23:09 Source: patient Mode of arrival: ambulatory Limitations: no limitations - History of Present Illness Initial Comments: 34-year-old male presents emergency department with reported left-sided chest wall pain. States that he has had pain for the past 2 days. It radiates into his left arm. It is reproducible with palpation and movement. No associated shortness of breath, nausea, vomiting. No fevers, chills or cough. He does admit that he has been hunting over the past couple of days and was not sure if his pain was from exertion or musculoskeletal injury. He does have a history of high cholesterol, diabetes and a family history of cardiac disease. He has not been using any medications at home to help alleviate his pain. States that he is not moving, does not hurt. Denies any abdominal pain. No calf pain or swelling. No other alleviating, precipitating modifying factors - Related Data Home Medications Medication Instructions Recorded Confirmed Insulin Aspart (For Pump) [NovoLOG 0.01 unit SQ-PUMP CONTINUOUS 12/20/20 02/20/23 (For Pump)] Albuterol Inhaler [Ventolin Hfa 1 - 2 puff INHALATION RT-Q6H PRN 02/20/23 02/20/23 Inhaler] Glucagon Emergency Kit 1 mg IM ONCE PRN 02/20/23 02/20/23 Previous Rx's Medication Instructions Recorded Ondansetron Odt [Zofran Odt] 4 mg PO Q8HR PRN #10 tab 09/28/22 Allergies Allergy/AdvReac Type Severity Reaction Status Date / Time No Known Allergies Allergy Verified 05/31/24 22:45 Review of Systems ROS Statement: Those systems with pertinent positive or pertinent negative responses have been documented in the HPI. ROS Other: All systems not noted in ROS Statement are negative. Past Medical History Past Medical History: Asthma, Diabetes Mellitus, GERD/Reflux Additional Past Medical History / Comment(s): DM type I, gastroparesis, Covid End of Jul 2020 History of Any Multi-Drug Resistant Organisms: None Reported Past Surgical History: Cholecystectomy Past Anesthesia/Blood Transfusion Reactions: Postoperative Nausea & Vomiting (PONV) Additional Past Anesthesia/Blood Transfusion Reaction / Comment(s): Pt has never received blood. Past Psychological History: No Psychological Hx Reported Smoking Status: Vaper Past Alcohol Use History: None Reported Past Drug Use History: None Reported - Past Family History Father Family Medical History: Diabetes Mellitus, Hypertension Additional Family Medical History / Comment(s): type II diabetes. Mother Family Medical History: COPD Brother(s) Family Medical History: Diabetes Mellitus Additional Family Medical History / Comment(s): IDDM type I Sister(s) Family Medical History: No Reported History General Exam Limitations: no limitations General appearance: alert, in no apparent distress Head exam: Present: atraumatic, normocephalic, normal inspection Eye exam: Present: normal appearance, PERRL, EOMI. Absent: scleral icterus, conjunctival injection, periorbital swelling ENT exam: Present: normal exam, mucous membranes moist Neck exam: Present: normal inspection. Absent: tenderness, meningismus, lymp hadenopathy Respiratory exam: Present: normal lung sounds bilaterally, chest wall tenderness. Absent: respiratory distress, wheezes, rales, rhonchi, stridor Cardiovascular Exam: Present: regular rate, normal rhythm, normal heart sounds. Absent: systolic murmur, diastolic murmur, rubs, gallop, clicks GI/Abdominal exam: Present: soft, normal bowel sounds. Absent: distended, tenderness, guarding, rebound, rigid Extremities exam: Present: normal inspection, full ROM, normal capillary refill. Absent: tenderness, pedal edema, joint swelling, calf tenderness Back exam: Present: normal inspection Neurological exam: Present: alert, oriented X3, CN II-XII intact Psychiatric exam: Present: normal affect, normal mood Skin exam: Present: warm, dry, intact, normal color. Absent: rash Course Vital Signs 05/31/24 06/01/24 22:42 02:25 Temperature 97.8 F 97.7 F Pulse Rate 87 77 Respiratory 16 18 Rate Blood Pressure 137/92 124/82 O2 Sat by Pulse 97 97 Oximetry Chest Pain MDM - MDM Was pt. sent in by a medical professional or institution (ENRIQUE Burris, DRYING ROOM ATTENDANT, urgent care, hospital, or half-way...) When possible be specific @ -No Did you speak to anyone other than the patient for history (EMS, parent, family, police, friend...)? What history was obtained from this source @ -No Did you review nursing and triage notes (agree or disagree)? Why? @ -I reviewed and agree with nursing and triage notes Were old charts reviewed (outside hosp., previous admission, EMS record, old EKG, old radiological studies, urgent care reports/EKG's, half-way records)? Report findings @ -Reviewed hospitalization from 2017 when patient was admitted with elevated troponin Differential Diagnosis (chest pain, altered mental status, abdominal pain women, abdominal pain men, vaginal bleeding, weakness, fever, dyspnea, syncope, headache, dizziness, GI bleed, back pain, seizure, CVA, palpatations, mental health, musculoskeletal)? @ -Differential Chest Pain: Stable Angina, Unstable Angina, STEMI, NSTEMI Aortic Dissection, Pneumothorax, Musculoskeletal, Esophageal Spasm GERD, Cholecystitis, Pancreatitis, Zoster, this is not meant to be an all-inclusive list. EKG interpreted by me (3pts min.). @ -Yes and demonstrates sinus rhythm with a rate of 94. NH interval 152. QRS 105. QTc of 392. No acute ST segment elevations or depressions X-rays interpreted by me (1pt min.). @ -Yes and demonstrates no acute process CT interpreted by me (1pt min.). @ -None done U/S interpreted by me (1pt. min.). @ -None done What testing was considered but not performed or refused? (CT, X-rays, U/S, labs)? Why? @ -None What meds were considered but not given or refused? Why? @ -Pain medications were offered however patient refused Did you discuss the management of the patient with other professionals (professionals i.e. , PA, DRYING ROOM ATTENDANT, lab, RT, psych nurse, foster care social worker, spring coiling machine setter, teacher, protection officer, case management manager)? Give summary @ -No Was smoking cessation discussed for >3mins.? @ -No Was critical care preformed (if so, how long)? @ -No Were there social determinants of health that impacted care today? How? (Homelessness, low income, unemployed, alcoholism, drug addiction, transportation, low edu. Level, literacy, decrease access to med. care, [facility], rehab)? @ -No Was there de-escalation of care discussed even if they declined (Discuss DNR or withdrawal of care, Hospice)? DNR status @ -No What co-morbidities impacted this encounter? (DM, HTN, Smoking, COPD, CAD, Can cer, CVA, ARF, Chemo, Hep., AIDS, mental health diagnosis, sleep apnea, morbid obesity)? @ -Type 1 diabetes, high cholesterol Was patient admitted / discharged? Hospital course, mention meds given and route, prescriptions, significant lab abnormalities, going to OR and other pertinent info. @ -Upon arrival patient seen and evaluated in hallway 18. Thorough history and physical exam was performed. Patient offered pain medications however he refused. Laboratory studies were obtained as patient does have risk factors for coronary disease and previously had elevated troponins in 2017. Laboratory studies are within normal limits. Chest x-ray was performed. Results are discussed with the patient. Chest pain today seems consistent with musculoskeletal etiology as patient has tenderness to palpation of chest wall. Instructed heat to the area. Rest. No heavy lifting with the left arm. Follow-up with primary care doctor in 2 to 4 days. Return for any new or worsening symptoms. Patient was agreeable plan was discharged home in stable condition Undiagnosed new problem with uncertain prognosis? @ -No Drug Therapy requiring intensive monitoring for toxicity (Heparin, Nitro, Insul in, Cardizem)? @ -No Were any procedures done? @ -No Diagnosis/symptom? @ -Acute left-sided chest wall pain Acute, or Chronic, or Acute on Chronic? @ -Acute Uncomplicated (without systemic symptoms) or Complicated (systemic symptoms)? @ -Complicated Side effects of treatment? @ -No Exacerbation, Progression, or Severe Exacerbation? @ -No Poses a threat to life or bodily function? How? (Chest pain, [place], [place], pneumonia, PE, COPD, DKA, ARF, appy, cholecystitis, CVA, Diverticulitis, Homicidal, Suicidal, threat to staff... and all critical care pts) @ -No Disposition Clinical Impression: Chest pain Disposition: HOME SELF-CARE Condition: Stable Instructions (If sedation given, give patient instructions): Chest Pain (ED) Additional Instructions: Please follow-up with your primary care doctor in 2 to 4 days. Return for any new or worsening symptoms Is patient prescribed a controlled substance at d/c from ED?: No Referrals: Lenka Chowdhury [Primary Care Provider] - 1-2 days Time of Disposition: 01:39
[2024-06-01 01:40] LABS: ALT 35 U/L (4-49); AST 26 U/L (17-59); African American GFR (CKD) >90 (>60 ml/min/1.73 sqM); Albumin 4.5 g/dL (3.5-5.0); Alkaline Phosphatase 97 U/L (38-126); Anion Gap 5 mmol/L; Blood Urea Nitrogen 16 mg/dL (9-20); Calcium 9.2 mg/dL (8.4-10.2); Carbon Dioxide 25 mmol/L (22-30); Chloride 106 mmol/L (98-107); Glucose 110 mg/dL (74-99); Non-African American GFR(CKD) >90 (>60 ml/min/1.73 sqM); Potassium 4.1 mmol/L (3.5-5.1); Sodium 136 mmol/L (137-145); Total Bilirubin 0.9 mg/dL (0.2-1.3); Total Protein 7.1 g/dL (6.3-8.2)
--- NOTE | 2024-06-01 01:46 | XR ---
EXAM: XR Chest, 2 Views CLINICAL HISTORY: ITS.REASON XR Reason: Cough/pain TECHNIQUE: Frontal and lateral views of the chest. COMPARISON: No relevant prior studies available. FINDINGS: Lungs: Mild bibasilar opacities.. Pleural space: No effusion. Heart: No cardiomegaly. Bones/joints: No acute findings. IMPRESSION: Mild bibasilar opacities..
[2024-06-01 02:30] VITALS: BP 124/82; PULSE 77; RESP 18; TEMP 97.7
== END 2024-06-01 02:25 | disposition home or self-care (01) ==
LOC: EC 22:37
DX: E78.00 Pure hypercholesterolemia, unspecified (principal); E10.8 Type 1 diabetes mellitus with unspecified complications; F17.290 Nicotine dependence, other tobacco product, uncomplicated; Z86.16 Personal history of COVID-19
CPT/HCPCS: 36415; 71046; 80053; 84484; 85025; 93005; 99285

== ENCOUNTER 2024-08-11 18:08 | Emergency (ER) | payer OTHER ==
[2024-08-11 18:19] LABS: Glucose,Whole Blood 258 mg/dL (70-110)
--- NOTE | 2024-08-11 18:47 | ED ---
General Adult HPI - General Chief complaint: Recheck/Abnormal Lab/Rx Stated complaint: lethargy Time Seen by Provider: 08/11/24 18:45 Source: patient, RN notes reviewed Mode of arrival: ambulatory Limitations: no limitations - History of Present Illness Initial comments: This is a 34-year-old male with history of type 1 diabetes with an insulin pump presents emergency department for complaint of generalized weakness. Patient is over the past week he has been having fluctuating blood sugars in the ranges to the 300s to 150s. He has been experiencing increase in fatigue and stated he will have a full 8 hours of sleep but is tired throughout the day. Endorses increase in urination and hunger. Endorses nausea with no vomiting. States he had episode of chills yesterday evening. Denies cough, congestion, rhinorrhea. - Related Data Home Medications Medication Instructions Recorded Confirmed Insulin Aspart (For Pump) [NovoLOG 0.01 unit SQ-PUMP CONTINUOUS 12/20/20 02/20/23 (For Pump)] Albuterol Inhaler [Ventolin Hfa 1 - 2 puff INHALATION RT-Q6H PRN 02/20/23 02/20/23 Inhaler] Glucagon Emergency Kit 1 mg IM ONCE PRN 02/20/23 02/20/23 Previous Rx's Medication Instructions Recorded Ondansetron Odt [Zofran Odt] 4 mg PO Q8HR PRN #10 tab 09/28/22 Allergies Allergy/AdvReac Type Severity Reaction Status Date / Time No Known Allergies Allergy Verified 08/11/24 18:17 Review of Systems ROS Statement: Those systems with pertinent positive or pertinent negative responses have been documented in the HPI. ROS Other: All systems not noted in ROS Statement are negative. Past Medical History Past Medical History: Asthma, Diabetes Mellitus, GERD/Reflux Additional Past Medical History / Comment(s): DM type I, gastroparesis, Covid End of Jul 2020 History of Any Multi-Drug Resistant Organisms: None Reported Past Surgical History: Cholecystectomy Past Anesthesia/Blood Transfusion Reactions: Postoperative Nausea & Vomiting (PONV) Additional Past Anesthesia/Blood Transfusion Reaction / Comment(s): Pt has never received blood. Past Psychological History: No Psychological Hx Reported Smoking Status: Vaper Past Alcohol Use History: None Reported Past Drug Use History: None Reported - Past Family History Father Family Medical History: Diabetes Mellitus, Hypertension Additional Family Medical History / Comment(s): type II diabetes. Mother Family Medical History: COPD Brother(s) Family Medical History: Diabetes Mellitus Additional Family Medical History / Comment(s): IDDM type I Sister(s) Family Medical History: No Reported History General Exam Limitations: no limitations General appearance: alert, in no apparent distress ENT exam: Present: normal exam, mucous membranes moist Neck exam: Present: normal inspection. Absent: tenderness, meningismus, lymphadenopathy Cardiovascular Exam: Present: regular rate, normal rhythm, normal heart sounds. Absent: systolic murmur, diastolic murmur, rubs, gallop, clicks GI/Abdominal exam: Present: soft, normal bowel sounds. Absent: distended, tenderness, guarding, rebound, rigid Extremities exam: Present: normal inspection, full ROM, normal capillary refill. Absent: tenderness, pedal edema, joint swelling, calf tenderness Back exam: Present: normal inspection Course Vital Signs 08/11/24 18:16 Temperature 98.2 F Pulse Rate 97 Respiratory 16 Rate Blood Pressure 134/84 O2 Sat by Pulse 96 Oximetry Medical Decision Making - Medical Decision Making Was pt. sent in by a medical professional or institution (, PA, BATTERY INSTALLER, urgent care, hospital, or snf...) When possible be specific @ -No Did you speak to anyone other than the patient for history (EMS, parent, family, police, friend...)? What history was obtained from this source @ -No Did you review nursing and triage notes (agree or disagree)? Why? @ -I reviewed and agree with nursing and triage notes Were old charts reviewed (outside hosp., previous admission, EMS record, old EKG, old radiological studies, urgent care reports/EKG's, snf records)? Report findings @ -No old charts were reviewed Differential Diagnosis (chest pain, altered mental status, abdominal pain women, abdominal pain men, vaginal bleeding, weakness, fever, dyspnea, syncope, headache, dizziness, GI bleed, back pain, seizure, CVA, palpatations, mental health, musculoskeletal)? @ -Differential Weakness: Hypoglycemia, shock, sepsis, hyponatremia, anemia, infection, DC, ETOH, adverse medicine reaction, overdose, stroke, this is not meant to be an all-inclusive list. EKG interpreted by me (3pts min.). @ -None X-rays interpreted by me (1pt min.). @ -None done CT interpreted by me (1pt min.). @ -None done U/S interpreted by me (1pt. min.). @ -None done What testing was considered but not performed or refused? (CT, X-rays, U/S, labs)? Why? @ -None What meds were considered but not given or refused? Why? @ -None Did you discuss the management of the patient with other professionals (professionals i.e. , PA, BATTERY INSTALLER, lab, RT, psych nurse, social media assistant, normalizer, teacher, nuclear security officer, skilled nursing case manager)? Give summary @ -No Was smoking cessation discussed for >3mins.? @ -No Was critical care preformed (if so, how long)? @ -No Were there social determinants of health that impacted care today? How? (Homelessness, low income, unemployed, alcoholism, drug addiction, transportation, low edu. Level, literacy, decrease access to med. care, residential, rehab)? @ -No Was there de-escalation of care discussed even if they declined (Discuss DNR or withdrawal of care, Hospice)? DNR status @ -No What co-morbidities impacted this encounter? (DM, HTN, Smoking, COPD, CAD, Cancer, CVA, ARF, Chemo, Hep., AIDS, mental health diagnosis, sleep apnea, morbid obesity)? @ -None Was patient admitted / discharged? Hospital course, mention meds given and route, prescriptions, significant lab abnormalities, going to OR and other pertinent info. @ -Discharge. 34-year-old male presenting with generalized weakness and fluctuating blood sugars. Patient is [id number] glucose hyperglycemic at 258. Vitals are stable. He is provided with IV fluids pending laboratory evaluation. Labs are unremarkable. Patient is not acidotic, there are no ketones in his urine, electrolytes are stable. Viral swab was negative. Patient is educated on today's findings instructed follow-up with primary care provider outpatient. Discussed with Dr. Hernandez Undiagnosed new problem with uncertain prognosis? @ -No Drug Therapy requiring intensive monitoring for toxicity (Heparin, Nitro, Insulin, Cardizem)? @ -No Were any procedures done? @ -No Diagnosis/symptom? @ -Diarrhea Acute, or Chronic, or Acute on Chronic? @ -Acute Uncomplicated (without systemic symptoms) or Complicated (systemic symptoms)? @ -Uncomplicated Side effects of treatment? @ -No Exacerbation, Progression, or Severe Exacerbation? @ -No Poses a threat to life or bodily function? How? (Chest pain, USA, DC, pneumonia, PE, COPD, DKA, ARF, appy, cholecystitis, CVA, Diverticulitis, Homicidal, Suicidal, threat to staff... and all critical care pts) @ -No - Lab Data Result diagrams: 08/11/24 19:21 08/11/24 19:21 Lab Results 08/11/24 08/11/24 08/11/24 Range/Units 18:17 19:06 19:09 WBC (3.8-10.6) k/uL RBC (4.30-5.90) m/uL Hgb (13.0-17.5) gm/dL Hct (39.0-53.0) % MCV (80.0-100.0) fL MCH (25.0-35.0) pg MCHC (31.0-37.0) g/dL RDW (11.5-15.5) % Plt Count (150-450) k/uL MPV Neutrophils % % Lymphocytes % % Monocytes % % Eosinophils % % Basophils % % Neutrophils # (1.3-7.7) k/uL Lymphocytes # (1.0-4.8) k/uL Monocytes # (0-1.0) k/uL Eosinophils # (0-0.7) k/uL Basophils # (0-0.2) k/uL Sodium (137-145) mmol/L Potassium (3.5-5.1) mmol/L Chloride (98-107) mmol/L Carbon Dioxide (22-30) mmol/L Anion Gap mmol/L BUN (9-20) mg/dL Creatinine (0.66-1.25) mg/dL Est GFR (CKD-EPI)AfAm (>60 ml/min/1.73 sqM) Est GFR (CKD-EPI)NonAf (>60 ml/min/1.73 sqM) Glucose (74-99) mg/dL POC Glucose (mg/dL) 258 H (70-110) mg/dL POC Glu Liquefied [employer] Operator ID Jamilah Dixon Plasma Lactic Acid Elio (0.7-2.0) mmol/L Calcium (8.4-10.2) mg/dL Magnesium (1.6-2.3) mg/dL Total Bilirubin (0.2-1.3) mg/dL AST (17-59) U/L ALT (4-49) U/L Alkaline Phosphatase (38-126) U/L Total Protein (6.3-8.2) g/dL Albumin (3.5-5.0) g/dL Urine Color Light Yellow Urine Appearance Clear (Clear) Urine pH 6.5 (5.0-8.0) Ur Specific [place] 1.016 (1.001-1.035) Urine Protein Negative (Negative) Urine Glucose (UA) 2+ H (Negative) Urine Ketones Negative (Negative) Urine Blood Negative (Negative) Urine Nitrite Negative (Negative) Urine Bilirubin Negative (Negative) Urine Urobilinogen <2.0 (<2.0) mg/dL Ur Leukocyte Esterase Negative (Negative) Influenza Type A (PCR) Not Detected (Not Detectd) Influenza Type B (PCR) Not Detected (Not Detectd) RSV (PCR) Not Detected (Not Detectd) SARS-CoV-2 (PCR) Not Detected (Not Detectd) 08/11/24 08/11/24 08/11/24 Range/Units 19:21 19:21 19:21 WBC 6.5 (3.8-10.6) k/uL RBC 5.30 (4.30-5.90) m/uL Hgb 15.6 (13.0-17.5) gm/dL Hct 45.6 (39.0-53.0) % MCV 86.1 (80.0-100.0) fL MCH 29.4 (25.0-35.0) pg MCHC 34.2 (31.0-37.0) g/dL RDW 13.2 (11.5-15.5) % Plt Count 225 (150-450) k/uL MPV 7.9 Neutrophils % 66 % Lymphocytes % 22 % Monocytes % 4 % Eosinophils % 5 % Basophils % 2 % Neutrophils # 4.3 (1.3-7.7) k/uL Lymphocytes # 1.4 (1.0-4.8) k/uL Monocytes # 0.2 (0-1.0) k/uL Eosinophils # 0.3 (0-0.7) k/uL Basophils # 0.1 (0-0.2) k/uL Sodium 136 L (137-145) mmol/L Potassium 4.5 (3.5-5.1) mmol/L Chloride 99 (98-107) mmol/L Carbon Dioxide 30 (22-30) mmol/L Anion Gap 7 mmol/L BUN 13 (9-20) mg/dL Creatinine 0.88 (0.66-1.25) mg/dL Est GFR (CKD-EPI)AfAm >90 (>60 ml/min/1.73 sqM) Est GFR (CKD-EPI)NonAf >90 (>60 ml/min/1.73 sqM) Glucose 258 H (74-99) mg/dL POC Glucose (mg/dL) (70-110) mg/dL POC Glu [employer]ied [employer] Operator ID Plasma Lactic Acid Elio 1.5 (0.7-2.0) mmol/L Calcium 9.4 (8.4-10.2) mg/dL Magnesium 1.9 (1.6-2.3) mg/dL Total Bilirubin 1.0 (0.2-1.3) mg/dL AST 47 (17-59) U/L ALT 62 H (4-49) U/L Alkaline Phosphatase 104 (38-126) U/L Total Protein 7.0 (6.3-8.2) g/dL Albumin 4.5 (3.5-5.0) g/dL Urine Color Urine Appearance (Clear) Urine pH (5.0-8.0) Ur Specific [place] (1.001-1.035) Urine Protein (Negative) Urine Glucose (UA) (Negative) Urine Ketones (Negative) Urine Blood (Negative) Urine Nitrite (Negative) Urine Bilirubin (Negative) Urine Urobilinogen (<2.0) mg/dL Ur Leukocyte Esterase (Negative) Influenza Type A (PCR) (Not Detectd) Influenza Type B (PCR) (Not Detectd) RSV (PCR) (Not Detectd) SARS-CoV-2 (PCR) (Not Detectd) Disposition Clinical Impression: Diarrhea Disposition: HOME SELF-CARE Condition: Good Instructions (If sedation given, give patient instructions): Gastroenteritis (ED) Additional Instructions: Please return to the Emergency Department if symptoms worsen or any other concerns. Is patient prescribed a controlled substance at d/c from ED?: No Referrals: Lenka Chowdhury [Primary Care Provider] - 1-2 days Time of Disposition: 21:02
[2024-08-11 19:29] LABS: Appearance,Urine Clear (Clear); Bilirubin,Urine Negative (Negative); Blood,Urine Negative (Negative); Color,Urine Light Yellow; Glucose,Urine (UA) 2+ (Negative); Ketones,Urine Negative (Negative); Leukocyte Esterase,Urine Negative (Negative); Nitrite,Urine Negative (Negative); PH, Urine 6.5 (5.0-8.0); Protein,Urine Negative (Negative); Specific Gravity,Urine 1.016 (1.001-1.035); Urobilinogen,Urine <2.0 mg/dL (<2.0)
[2024-08-11] MEDS: SODIUM CHLORIDE 0.9% 1,000 ML IV STA (19:33)
[2024-08-11 19:35] LABS: Basophils # (A) 0.1 k/uL (0-0.2); Basophils % (A) 2 %; Eosinophils # (A) 0.3 k/uL (0-0.7); Eosinophils % (A) 5 %; HCT 45.6 % (39.0-53.0); HGB 15.6 gm/dL (13.0-17.5); Lymphocytes # (A) 1.4 k/uL (1.0-4.8); Lymphocytes % (A) 22 %; MCH 29.4 pg (25.0-35.0); MCHC 34.2 g/dL (31.0-37.0); MCV 86.1 fL (80.0-100.0); Mean Platelet Volume 7.9; Monocytes # (A) 0.2 k/uL (0-1.0); Monocytes % (A) 4 %; Neutrophils # (A) 4.3 k/uL (1.3-7.7); Neutrophils % (A) 66 %; Platelet Count 225 k/uL (150-450); RDW 13.2 % (11.5-15.5); WBC 6.5 k/uL (3.8-10.6)
[2024-08-11 19:58] LABS: Influenza A Not Detected (Not Detectd); Influenza B Not Detected (Not Detectd); RSV Not Detected (Not Detectd)
[2024-08-11 20:43] LABS: ALT 62 U/L (4-49); AST 47 U/L (17-59); African American GFR (CKD) >90 (>60 ml/min/1.73 sqM); Albumin 4.5 g/dL (3.5-5.0); Alkaline Phosphatase 104 U/L (38-126); Anion Gap 7 mmol/L; Blood Urea Nitrogen 13 mg/dL (9-20); Calcium 9.4 mg/dL (8.4-10.2); Carbon Dioxide 30 mmol/L (22-30); Chloride 99 mmol/L (98-107); Glucose 258 mg/dL (74-99); Magnesium 1.9 mg/dL (1.6-2.3); Non-African American GFR(CKD) >90 (>60 ml/min/1.73 sqM); Potassium 4.5 mmol/L (3.5-5.1); Sodium 136 mmol/L (137-145)
[2024-08-11 21:19] VITALS: BP 128/79; PULSE 81; RESP 17; TEMP 98.1
== END 2024-08-11 21:24 | disposition home or self-care (01) ==
LOC: EC 18:08
DX: R19.7 Diarrhea, unspecified (principal); F17.290 Nicotine dependence, other tobacco product, uncomplicated
CPT/HCPCS: 36415; 80053; 81003; 82009; 83605; 83735; 85025; 87636; 96360; 96361; 99284

== ENCOUNTER 2024-12-31 03:49 | Emergency (ER) | payer OTHER ==
--- NOTE | 2024-12-31 05:10 | ED ---
General Adult HPI - General Chief complaint: Nausea/Vomiting/Diarrhea Stated complaint: Fever,vomitting Time Seen by Provider: 12/31/24 04:24 Source: patient Mode of arrival: ambulatory Limitations: no limitations - History of Present Illness Initial comments: Patient is a 34-year-old male with past medical history of type 1 diabetes on insulin pump presenting today for nausea, vomiting abdominal pain. Patient states he has had 2 days of loose stools, nonbloody nonmelanotic. He had his insulin pump changed yesterday at his doctor's office. He states it has been functioning like it should be. Last night he had a spicy chicken wrap at [facility] and shortly after began having cramping epigastric abdominal pain and severe nausea. He has not had any episodes of emesis. No fevers but has felt hot and cold. Denies changes in vision but does feel he is urinating less than normal. Endorses associate mild headache but no numbness or weakness. Denies chest pain or shortness of breath. Denies sore throat or nasal congestion. Prior abdominal surgeries include prior cholecystectomy. - Related Data Home Medications Medication Instructions Recorded Confirmed Insulin Aspart (For Pump) [NovoLOG 0.01 unit SQ-PUMP CONTINUOUS 12/20/20 02/20/23 (For Pump)] Albuterol Inhaler [Ventolin Hfa 1 - 2 puff INHALATION RT-Q6H PRN 02/20/23 02/20/23 Inhaler] Glucagon Emergency Kit 1 mg IM ONCE PRN 02/20/23 02/20/23 Previous Rx's Medication Instructions Recorded Ondansetron Odt [Zofran Odt] 4 mg PO Q8HR PRN #10 tab 09/28/22 Allergies Allergy/AdvReac Type Severity Reaction Status Date / Time No Known Allergies Allergy Verified 12/31/24 03:57 Review of Systems ROS Statement: Those systems with pertinent positive or pertinent negative responses have been documented in the HPI. ROS Other: All systems not noted in ROS Statement are negative. Past Medical History Past Medical History: Asthma, Diabetes Mellitus, GERD/Reflux Additional Past Medical History / Comment(s): DM type I, gastroparesis, Covid End of Jul 2020 History of Any Multi-Drug Resistant Organisms: None Reported Past Surgical History: Cholecystectomy Past Anesthesia/Blood Transfusion Reactions: Postoperative Nausea & Vomiting (PONV) Additional Past Anesthesia/Blood Transfusion Reaction / Comment(s): Pt has never received blood. Past Psychological History: No Psychological Hx Reported Smoking Status: Vaper Past Alcohol Use History: None Reported Past Drug Use History: None Reported - Past Family History Father Family Medical History: Diabetes Mellitus, Hypertension Additional Family Medical History / Comment(s): type II diabetes. Mother Family Medical History: COPD Brother(s) Family Medical History: Diabetes Mellitus Additional Family Medical History / Comment(s): IDDM type I Sister(s) Family Medical History: No Reported History General Exam - General Exam Comments Initial Comments: PE: CONSTITUTIONAL: [no apparent distress, well appearing] SKIN: [warm, dry, no jaundice, hives or petechiae] EYES:[ pupils are equally round, extraocular movements intact without nystagmus, clear conjunctiva, non-icteric sclera] HENT: [normocephalic, atraumatic, moist mucus membranes, oropharynx clear without exudates] NECK: , [Full range of motion, normal appearance] PULMONARY: [clear to auscultation without wheezes, rhonchi, or rales, normal excursion, no accessory muscle use and no stridor] CARDIOVASCULAR:[ regular rate, rhythm, normal S1 and S2. No appreciated murmurs, rubs or gallops. Strong radial pulses with intact distal perfusion. No lower extremity edema] GASTROINTESTINAL: [soft, active bowel sounds throughout, non-tender, non- distended, no palpable masses, no rebound or guarding. No hepatosplenomegaly] GENITOURINARY: MUSCULOSKELETAL: [Extremities have no gross deformity, no edema, redness, or swelling. No calf swelling ] NEUROLOGIC: [_a/o x 3, GCS 15, normal mentation and speech. Moves all extremities x 4 without motor or sensory deficit] PSYCHIATRIC:[ _normal mood and affect, thought process is clear and linear] Limitations: no limitations Course Vital Signs 12/31/24 12/31/24 12/31/24 03:56 05:36 06:00 Temperature 98.1 F 99.5 F Pulse Rate 111 H 101 H 89 Respiratory 16 18 18 Rate Blood Pressure 145/90 122/68 O2 Sat by Pulse 95 95 96 Oximetry - Reevaluation(s) Reevaluation #1: Labs and imaging reviewed. Grossly within normal limits. Abnormal values not concerning for acute pathology related to presenting complaint. On reassessment patient has not received his medications, otherwise updated him to today's findings. Will ensure pain control and nausea control, if patient symptoms con trolled after medications plan for discharge. 12/31/24 06:45 Medical Decision Making - Medical Decision Making Was pt. sent in by a medical professional or institution (ENRIQUE Burris, CLERK ANALYST, urgent care, hospital, or longterm...) When possible be specific @ -[No] Did you speak to anyone other than the patient for history (EMS, parent, family, police, friend...)? What history was obtained from this source @ -[No] Did you review nursing and triage notes (agree or disagree)? Why? @ -[I reviewe dnursing and triage notes] disagree patient has not any episodes of emesis Were old charts reviewed (outside hosp., previous admission, EMS record, old E KG, old radiological studies, urgent care reports/EKG's, longterm records)? Report findings @ -[Medical records reviewed] Differential Diagnosis (chest pain, altered mental status, abdominal pain women, abdominal pain men, vaginal bleeding, weakness, fever, dyspnea, syncope, headache, dizziness, GI bleed, back pain, seizure, CVA, palpatations, mental health, musculoskeletal)? @Differential Abdominal Pain Men: Appendicitis, cholecystitis, diverticulosis, ischemic bowel, pancreatitis, hepatitis, UTI, gastroenteritis, AAA, incarcerated hernia, bowel obstruction, constipation, inflammatory bowel, hepatitis, peptic ulcer disease, splenic infarction, perforated viscus, testicular torsion, this is not meant to be an all-inclusive list EKG interpreted by me (3pts min.). @ -[As above] X-rays interpreted by me (1pt min.). @ -[None done] CT interpreted by me (1pt min.). @ -[None done] U/S interpreted by me (1pt. min.). @ -[None done] What testing was considered but not performed or refused? (CT, X-rays, U/S, labs)? Why? @ -[None] What meds were considered but not given or refused? Why? @ -[None] Did you discuss the management of the patient with other professionals (professionals i.e. ENRIQUE Burris, CLERK ANALYST, lab, RT, psych nurse, addiction social worker, cafeteria assistant, teacher, commercial loan collection officer, child welfare caseworker)? Give summary @ -[No] Was smoking cessation discussed for >3mins.? @ -[No] Was critical care preformed (if so, how long)? @ -[No] Were there social determinants of health that impacted care today? How? ( Homelessness, low income, unemployed, alcoholism, drug addiction, transportation, low edu. Level, literacy, decrease access to med. care, fdc, rehab)? @ -[No] Was there de-escalation of care discussed even if they declined (Discuss DNR or withdrawal of care, Hospice)? @ -[No] What co-morbidities impacted this encounter? (DM, HTN, Smoking, COPD, CAD, Cancer, CVA, ARF, Chemo, Hep., AIDS, mental health diagnosis, sleep apnea, morbid obesity)? @Type 1 diabetes Was patient admitted / discharged? Hospital course, mention meds given and route, prescriptions, significant lab abnormalities, going to OR and other pertinent info. @ -[hospital course] patient is a 34-year-old gentleman with a past medical history of type 1 diabetes presenting today for epigastric abdominal pain, nausea after eating a spicy wrap at [employer] yesterday evening. Patient is mildly tachycardic on arrival blood pressures within normal limits he is afebrile. Abdominal exam is benign, mildly distended though nontender. Discussed with patient obtaining labs, will ensure not DKA though blood sugar bedside is 214, IV fluids, nausea and pain control as well as urinalysis. Patient agreeable plan of care. Undiagnosed new problem with uncertain prognosis? @ -[No] Drug Therapy requiring intensive monitoring for toxicity (Heparin, Nitro, Insulin, Cardizem)? @ -[No] Were any procedures done? @ -[No] Diagnosis/symptom? @ -[default] Acute, or Chronic, or Acute on Chronic? @ -[default] Uncomplicated (without systemic symptoms) or Complicated (systemic symptoms)? @ -[default] Side effects of treatment? @ -[No] Exacerbation, Progression, or Severe Exacerbation? @ -[No] Poses a threat to life or bodily function? How? (Chest pain, [place], [place], pneumonia, PE, COPD, DKA, ARF, appy, cholecystitis, CVA, Diverticulitis, Homicidal, Suicidal, threat to staff... and all critical care pts) @ -[No] - Lab Data Result diagrams: 12/31/24 05:49 12/31/24 05:49 Lab Results 12/31/24 12/31/24 12/31/24 Range/Units 05:23 05:30 05:49 WBC 8.52 (4.50-10.00) 10*3/uL RBC 5.16 (4.40-5.60) 10*6/uL Hgb 15.3 (13.0-17.0) g/dL Hct 42.7 (39.6-50.0) % MCV 82.8 (80.0-97.0) fL MCH 29.7 (27.0-32.0) pg MCHC 35.8 (32.0-37.0) g/dL Plt Count 241 (140-440) 10*3/uL MPV 10.1 (9.5-12.2) fL Immature Gran % (Auto) 0.2 % Neutrophils % 84.9 % Lymphocytes % 6.3 % Monocytes % 5.8 % Eosinophils % 2.2 % Basophils % 0.6 % Immature Gran # 0.02 (0.00-0.04) 10*3/uL Neutrophils # 7.23 (1.80-7.70) 10*3/uL Lymphocytes # 0.54 L (0.90-5.00) 10*3/uL Monocytes # 0.49 (0.20-1.00) 10*3/uL Eosinophils # 0.19 (0.04-0.35) 10*3/uL Basophils # 0.05 (0.00-0.10) 10*3/uL Sodium (137-145) mmol/L Potassium (3.5-5.1) mmol/L Chloride (98-107) mmol/L Carbon Dioxide (22-30) mmol/L Anion Gap mmol/L BUN (9-20) mg/dL Creatinine (0.66-1.25) mg/dL Est GFR (CKD-EPI)AfAm (>60 ml/min/1.73 sqM) Est GFR (CKD-EPI)NonAf (>60 ml/min/1.73 sqM) Glucose (74-99) mg/dL POC Glucose (mg/dL) 187 H (70-110) mg/dL POC Glu Payroll Bookkeeper ID SELIMOVIC CRISSY Calcium (8.4-10.2) mg/dL Total Bilirubin (0.2-1.3) mg/dL AST (17-59) U/L ALT (4-49) U/L Alkaline Phosphatase (38-126) U/L Total Protein (6.3-8.2) g/dL Albumin (3.5-5.0) g/dL Lipase (23-300) U/L Urine Color Yellow Urine Appearance Clear (Clear) Urine pH 6.0 (5.0-8.0) Ur Specific [place] 1.023 (1.001-1.035) Urine Protein Negative (Negative) Urine Glucose (UA) Negative (Negative) Urine Ketones Negative (Negative) Urine Blood Negative (Negative) Urine Nitrite Negative (Negative) Urine Bilirubin Negative (Negative) Urine Urobilinogen 3.0 (<2.0) mg/dL Ur Leukocyte Esterase Negative (Negative) Acetone, Qual (Negative) 12/31/24 Range/Units 05:49 WBC (4.50-10.00) 10*3/uL RBC (4.40-5.60) 10*6/uL Hgb (13.0-17.0) g/dL Hct (39.6-50.0) % MCV (80.0-97.0) fL MCH (27.0-32.0) pg MCHC (32.0-37.0) g/dL Plt Count (140-440) 10*3/uL MPV (9.5-12.2) fL Immature Gran % (Auto) % Neutrophils % % Lymphocytes % % Monocytes % % Eosinophils % % Basophils % % Immature Gran # (0.00-0.04) 10*3/uL Neutrophils # (1.80-7.70) 10*3/uL Lymphocytes # (0.90-5.00) 10*3/uL Monocytes # (0.20-1.00) 10*3/uL Eosinophils # (0.04-0.35) 10*3/uL Basophils # (0.00-0.10) 10*3/uL Sodium 134 L (137-145) mmol/L Potassium 4.1 (3.5-5.1) mmol/L Chloride 101 (98-107) mmol/L Carbon Dioxide 23 (22-30) mmol/L Anion Gap 10 mmol/L BUN 11 (9-20) mg/dL Creatinine 0.83 (0.66-1.25) mg/dL Est GFR (CKD-EPI)AfAm >90 (>60 ml/min/1.73 sqM) Est GFR (CKD-EPI)NonAf >90 (>60 ml/min/1.73 sqM) Glucose 165 H (74-99) mg/dL POC Glucose (mg/dL) (70-110) mg/dL POC Glu Payroll Bookkeeper ID Calcium 9.2 (8.4-10.2) mg/dL Total Bilirubin 0.9 (0.2-1.3) mg/dL AST 38 (17-59) U/L ALT 52 H (4-49) U/L Alkaline Phosphatase 118 (38-126) U/L Total Protein 6.5 (6.3-8.2) g/dL Albumin 4.2 (3.5-5.0) g/dL Lipase 26 (23-300) U/L Urine Color Urine Appearance (Clear) Urine pH (5.0-8.0) Ur Specific [place] (1.001-1.035) Urine Protein (Negative) Urine Glucose (UA) (Negative) Urine Ketones (Negative) Urine Blood (Negative) Urine Nitrite (Negative) Urine Bilirubin (Negative) Urine Urobilinogen (<2.0) mg/dL Ur Leukocyte Esterase (Negative) Acetone, Qual Negative (Negative) Disposition Clinical Impression: Nausea and vomiting, Gastroenteritis Disposition: HOME SELF-CARE Condition: Good Instructions (If sedation given, give patient instructions): Acute Nausea and Vomiting (ED), Gastroenteritis (ED) Additional Instructions: Every disease is a spectrum and a small chance still exists that a serious condition could develop, for this reason, please monitor yourself closely for new, changing or worsening symptoms, symptoms that begin to improve over the next 48 hours, nausea and vomiting beyond the next 48 hours, vomiting blood, severe uncontrollable abdominal pain, fever, inability to tolerate/keep down fluids or your medications, inability to follow up with outpatient providers as instructed and should you experience these symptoms or should you have any further concerns for your wellbeing please return to the ED or call 911 immediately. Please maintain a clear liquid diet for the next 24 hours. PLEASE call your primary care physician as soon as possible to arrange / discuss plan for followup appointment. Appointment in the next 1-3 days is strongly encouraged if possible. PLEASE let us know here before you leave if there is anything further we can do to be of any assistance. Take care and feel Better! Is patient prescribed a controlled substance at d/c from ED?: No Referrals: None,Stated [Primary Care Provider] - 1-2 days
[2024-12-31 05:31] LABS: Glucose,Whole Blood 187 mg/dL (70-110)
[2024-12-31 05:37] VITALS: RESP 18
[2024-12-31 05:56] LABS: Basophils # (A) 0.05 10*3/uL (0.00-0.10); Basophils % (A) 0.6 %; Eosinophils # (A) 0.19 10*3/uL (0.04-0.35); Eosinophils % (A) 2.2 %; HCT 42.7 % (39.6-50.0); HGB 15.3 g/dL (13.0-17.0); Lymphocytes # (A) 0.54 10*3/uL (0.90-5.00); Lymphocytes % (A) 6.3 %; MCH 29.7 pg (27.0-32.0); MCHC 35.8 g/dL (32.0-37.0); MCV 82.8 fL (80.0-97.0); Mean Platelet Volume 10.1 fL (9.5-12.2); Monocytes # (A) 0.49 10*3/uL (0.20-1.00); Monocytes % (A) 5.8 %; Neutrophils # (A) 7.23 10*3/uL (1.80-7.70); Neutrophils % (A) 84.9 %; Platelet Count 241 10*3/uL (140-440); RBC 5.16 10*6/uL (4.40-5.60); RDW 12.5 % (11.5-14.5); WBC 8.52 10*3/uL (4.50-10.00)
[2024-12-31 06:11] LABS: ALT 52 U/L (4-49); AST 38 U/L (17-59); African American GFR (CKD) >90 (>60 ml/min/1.73 sqM); Albumin 4.2 g/dL (3.5-5.0); Alkaline Phosphatase 118 U/L (38-126); Anion Gap 10 mmol/L; Blood Urea Nitrogen 11 mg/dL (9-20); Calcium 9.2 mg/dL (8.4-10.2); Carbon Dioxide 23 mmol/L (22-30); Chloride 101 mmol/L (98-107); Glucose 165 mg/dL (74-99); Lipase 26 U/L (23-300); Non-African American GFR(CKD) >90 (>60 ml/min/1.73 sqM); Potassium 4.1 mmol/L (3.5-5.1); Sodium 134 mmol/L (137-145); Total Bilirubin 0.9 mg/dL (0.2-1.3); Total Protein 6.5 g/dL (6.3-8.2)
[2024-12-31] MEDS: SODIUM CHLORIDE 0.9% 1,000 ML IV STA (06:17)
[2024-12-31] MEDS: SODIUM CHLORIDE 0.9% 1,000 ML IV ONE (06:18)
[2024-12-31] MEDS: KETOROLAC 15 MG/ML 1 ML VIAL IVP STA (06:21)
[2024-12-31] MEDS: FAMOTIDINE 20 MG/2 ML VIAL IV STA (06:23)
[2024-12-31 06:31] LABS: Appearance,Urine Clear (Clear); Bilirubin,Urine Negative (Negative); Blood,Urine Negative (Negative); Color,Urine Yellow; Glucose,Urine (UA) Negative (Negative); Ketones,Urine Negative (Negative); Leukocyte Esterase,Urine Negative (Negative); Nitrite,Urine Negative (Negative); Protein,Urine Negative (Negative); Specific Gravity,Urine 1.023 (1.001-1.035)
[2024-12-31] MEDS: ONDANSETRON 4 MG/2 ML VIAL IVP STA (06:35)
[2024-12-31] MEDS: MAG HYDROX/AL HYDROX/SIMETH 30 ML CUP PO STA (06:43)
[2024-12-31] MEDS: ONDANSETRON 4 MG ODT STARTER PACK 2 TAB BTL PO STA (08:18)
[2024-12-31 08:21] VITALS: BP 114/62; PULSE 97; TEMP 98
== END 2024-12-31 08:22 | disposition home or self-care (01) ==
LOC: EC 03:49
DX: K52.9 Noninfective gastroenteritis and colitis, unspecified (principal); R11.2 Nausea with vomiting, unspecified; E10.43 Type 1 diabetes mellitus with diabetic autonomic (poly)neuropathy; Z96.41 Presence of insulin pump (external) (internal); Z90.49 Acquired absence of other specified parts of digestive tract; F17.290 Nicotine dependence, other tobacco product, uncomplicated
CPT/HCPCS: 36415; 80053; 82009; 83690; 85025; 81003; 99284; 96374; 96375; 96361; J2405; J1885; S0119; J1308